=== PATIENT | female | born 1940 | race Two or more races ===

== ENCOUNTER 2016-11-13 | Inpatient (IN) | payer MEDICARE, OTHER ==
[~2016-11-13] VITALS: Ht 154.9 cm; Wt 53.5 kg
[~2016-11-13] MED LIST: ACET160S2 GT; ALBU1.257 IH; ALLA266C2 TP; ASCO500S2 GT; ASPI-1169 GT; CLON0.1T14 GT; CYAN250T6 GT; DULO60CA63 GT; ENOX40DI SQ; FERR220S2 GT; HYDR1SOL TP; IPRA0.2S9 IH; LEVO25TA7 GT; MAGN400O6 GT; MECL12.582 GT; METO5SOL2 GT; NS C250O2 GT; ONDA4TAB10 GT; PANT40SU2 GT; POLY17PO4 GT; SENN-167 GT; TRAM50TA2 GT; ZINC220C8 GT
[2016-11-15 07:45] VITALS: BP 133/78
--- NOTE | 2016-11-15 08:00 | NUR ---
Please see resident's previous account [id number] for all assessments and nurses notes. Originally admitted on 02/08/2016.
[2016-11-15] MEDS ORDERED: TUBERCULIN,PURIF.PROT.DERIV. 5 TU/0.1 ML DISP.SYRIN ID SCH (10:08)
[2016-11-15] MEDS ORDERED: HYDROGEN PEROXIDE 480 ML BOTTLE TP PRN (10:08)
[2016-11-15] MEDS ORDERED: ACETAMINOPHEN W/ CODEINE#3 1 EA TABLET GT PRN (10:08)
[2016-11-15] MEDS ORDERED: DULOXETINE HCL 30 MG CAPSULE.DR GT SCH (10:08)
[2016-11-15] MEDS ORDERED: ALBUTEROL HALF STRENGTH 1.25 MG/3 ML VIAL.NEB NEB PRN (10:08)
[2016-11-15] MEDS ORDERED: ALBUTEROL HALF STRENGTH 1.25 MG/3 ML VIAL.NEB NEB SCH (10:08)
[2016-11-15] MEDS ORDERED: IPRATROPIUM NEB FS 0.5 MG/2.5 ML AMPUL.NEB NEB SCH (10:08)
[2016-11-15] MEDS ORDERED: IPRATROPIUM NEB FS 0.5 MG/2.5 ML AMPUL.NEB NEB PRN (10:08)
--- NOTE | 2016-11-15 11:15 | NUR ---
Please see resident's previous account [id number] for Social Service assessments, evaluations and notes.
[2016-11-15] MEDS: IPRATROPIUM NEB FS 0.5 MG/2.5 ML AMPUL.NEB NEB SCH ×2 (13:39→19:58)
[2016-11-15] MEDS: ALBUTEROL HALF STRENGTH 1.25 MG/3 ML VIAL.NEB NEB SCH ×2 (13:39→19:58)
[2016-11-15] MEDS: NEXIUM 40 MG GT SCH (17:00)
[2016-11-15 19:48] VITALS: BP 123/68
[2016-11-15] MEDS: MECLIZINE HCL 12.5 MG TABLET GT SCH (21:58)
[2016-11-15] MEDS: ONDANSETRON 4 MG TAB.RAPDIS GT SCH (21:59)
[2016-11-15] MEDS: Z GUARD REMEDY 4 OZ OINT TP SCH ×2 (21:59)
[2016-11-15] MEDS: DULOXETINE HCL 30 MG CAPSULE.DR GT SCH (21:59)
[2016-11-15] MEDS: HYDROGEN PEROXIDE 480 ML BOTTLE TP SCH (21:59)
[2016-11-16] MEDS: ALBUTEROL HALF STRENGTH 1.25 MG/3 ML VIAL.NEB NEB SCH ×4 (01:35→19:42)
[2016-11-16] MEDS: IPRATROPIUM NEB FS 0.5 MG/2.5 ML AMPUL.NEB NEB SCH ×4 (01:35→19:42)
[2016-11-16] MEDS: LEVOTHYROXINE SODIUM 25 MCG TABLET GT SCH (06:37)
[2016-11-16 08:20] VITALS: BP 143/62
[2016-11-16] MEDS: ASPIRIN 81 MG TAB.CHEW GT SCH (08:40)
[2016-11-16] MEDS: MECLIZINE HCL 12.5 MG TABLET GT SCH ×2 (08:40→20:13)
[2016-11-16] MEDS: FERROUS SULFATE - FOR SA ONLY 330 MG/7.5 ML UDC GT SCH (08:41)
[2016-11-16] MEDS: POLYETHYLENE GLYCOL 3350 17 GM POWD.PACK GT SCH (08:41)
[2016-11-16] MEDS: SENNOSIDES 8.6 MG TABLET GT SCH (08:42)
[2016-11-16] MEDS: NEXIUM 40 MG GT SCH ×2 (08:42→17:58)
[2016-11-16] MEDS: ASCORBIC ACID 500 MG TABLET GT SCH (08:42)
[2016-11-16] MEDS: CYANOCOBALAMIN 500 MCG TABLET GT SCH (08:42)
[2016-11-16] MEDS: ZINC SULFATE 220 MG CAPSULE GT SCH (08:42)
[2016-11-16] MEDS: ONDANSETRON 4 MG TAB.RAPDIS GT SCH ×3 (08:43→20:14)
[2016-11-16] MEDS: HYDROGEN PEROXIDE 480 ML BOTTLE TP SCH ×2 (08:44→20:14)
[2016-11-16] MEDS: Z GUARD REMEDY 4 OZ OINT TP SCH ×4 (08:44→20:14)
[2016-11-16] MEDS: ENOXAPARIN SODIUM 40 MG/0.4 ML DISP.SYRIN SQ SCH (08:44)
[2016-11-16] MEDS: FIBERSOURCE HN 1,000 ML BOTTLE GT PRN (11:36)
[2016-11-16] MEDS: ACETAMINOPHEN 650 MG/20 ML UDC- FOR SA PATIENTS ONLY GT PRN (18:01)
[2016-11-16] MEDS: CLONIDINE HCL 0.1 MG TABLET GT PRN (18:08)
[2016-11-16 19:42] VITALS: BP 116/61
[2016-11-16] MEDS: DULOXETINE HCL 30 MG CAPSULE.DR GT SCH (21:19)
[2016-11-17 00:52] VITALS: BP 115/68
[2016-11-17] MEDS: ALBUTEROL HALF STRENGTH 1.25 MG/3 ML VIAL.NEB NEB SCH ×4 (02:14→19:54)
[2016-11-17] MEDS: IPRATROPIUM NEB FS 0.5 MG/2.5 ML AMPUL.NEB NEB SCH ×4 (02:14→19:54)
[2016-11-17] MEDS: LEVOTHYROXINE SODIUM 25 MCG TABLET GT SCH (05:24)
[2016-11-17 06:21] VITALS: BP 132/78
[2016-11-17 07:40] VITALS: BP 133/55
[2016-11-17] MEDS: NEXIUM 40 MG GT SCH ×2 (08:08→17:09)
[2016-11-17] MEDS: SENNOSIDES 8.6 MG TABLET GT SCH (08:08)
[2016-11-17] MEDS: ASPIRIN 81 MG TAB.CHEW GT SCH (08:08)
[2016-11-17] MEDS: ASCORBIC ACID 500 MG TABLET GT SCH (08:08)
[2016-11-17] MEDS: MECLIZINE HCL 12.5 MG TABLET GT SCH ×2 (08:08→21:10)
[2016-11-17] MEDS: POLYETHYLENE GLYCOL 3350 17 GM POWD.PACK GT SCH (08:08)
[2016-11-17] MEDS: FERROUS SULFATE - FOR SA ONLY 330 MG/7.5 ML UDC GT SCH (08:08)
[2016-11-17] MEDS: CYANOCOBALAMIN 500 MCG TABLET GT SCH (08:08)
[2016-11-17] MEDS: ONDANSETRON 4 MG TAB.RAPDIS GT SCH (08:09)
[2016-11-17] MEDS: ZINC SULFATE 220 MG CAPSULE GT SCH (08:09)
[2016-11-17] MEDS: ENOXAPARIN SODIUM 40 MG/0.4 ML DISP.SYRIN SQ SCH (08:09)
[2016-11-17] MEDS: HYDROGEN PEROXIDE 480 ML BOTTLE TP SCH ×2 (08:10→21:10)
[2016-11-17] MEDS: Z GUARD REMEDY 4 OZ OINT TP SCH ×4 (08:10→21:10)
[2016-11-17 12:28] VITALS: BP 113/67
[2016-11-17] MEDS: TRAMADOL HCL 50 MG TABLET GT PRN (17:09)
[2016-11-17 18:00] VITALS: BP 118/62
[2016-11-17 20:17] VITALS: BP 121/66
--- NOTE | 2016-11-17 20:43 | NUR ---
Pt seen by Deneen Hankins INFECTION CONTROL SPECIALIST,no new order.
[2016-11-17] MEDS: DULOXETINE HCL 30 MG CAPSULE.DR GT SCH (21:10)
[2016-11-17] MEDS: FIBERSOURCE HN 1,000 ML BOTTLE GT PRN (23:58)
[2016-11-18] VITALS: BP 121/69
[2016-11-18] MEDS: CLONIDINE HCL 0.1 MG TABLET GT PRN ×3 (00:36→16:14)
[2016-11-18] MEDS: IPRATROPIUM NEB FS 0.5 MG/2.5 ML AMPUL.NEB NEB SCH ×4 (01:50→19:33)
[2016-11-18] MEDS: ALBUTEROL HALF STRENGTH 1.25 MG/3 ML VIAL.NEB NEB SCH ×4 (01:50→19:33)
[2016-11-18 06:00] VITALS: BP 115/60
[2016-11-18] MEDS: LEVOTHYROXINE SODIUM 25 MCG TABLET GT SCH (06:34)
[2016-11-18 07:53] VITALS: BP_SYST 129; BP_SYST 96; BP_DIAS 69; BP_DIAS 73
--- NOTE | 2016-11-18 08:20 | NUR ---
Seen and examined by Dr. Charla Fontanez no new order given at this time.
[2016-11-18] MEDS: NEXIUM 40 MG GT SCH ×2 (09:51→16:14)
[2016-11-18] MEDS: ASCORBIC ACID 500 MG TABLET GT SCH (09:51)
[2016-11-18] MEDS: FERROUS SULFATE - FOR SA ONLY 330 MG/7.5 ML UDC GT SCH (09:51)
[2016-11-18] MEDS: POLYETHYLENE GLYCOL 3350 17 GM POWD.PACK GT SCH (09:51)
[2016-11-18] MEDS: SENNOSIDES 8.6 MG TABLET GT SCH (09:51)
[2016-11-18] MEDS: MECLIZINE HCL 12.5 MG TABLET GT SCH ×2 (09:51→21:41)
[2016-11-18] MEDS: CYANOCOBALAMIN 500 MCG TABLET GT SCH (09:51)
[2016-11-18] MEDS: ASPIRIN 81 MG TAB.CHEW GT SCH (09:51)
[2016-11-18] MEDS: ENOXAPARIN SODIUM 40 MG/0.4 ML DISP.SYRIN SQ SCH (09:52)
[2016-11-18] MEDS: ZINC SULFATE 220 MG CAPSULE GT SCH (09:52)
[2016-11-18] MEDS: HYDROGEN PEROXIDE 480 ML BOTTLE TP SCH ×2 (09:52→21:41)
[2016-11-18] MEDS: Z GUARD REMEDY 4 OZ OINT TP SCH ×4 (09:52→21:42)
[2016-11-18 12:00] VITALS: BP 110/67
[2016-11-18] MEDS: FIBERSOURCE HN 1,000 ML BOTTLE GT PRN (16:16)
[2016-11-18 18:14] VITALS: BP 110/65
[2016-11-18 19:46] VITALS: BP 117/64
[2016-11-18] MEDS: DULOXETINE HCL 30 MG CAPSULE.DR GT SCH (21:42)
[2016-11-19 00:31] VITALS: BP 115/71
[2016-11-19] MEDS: ALBUTEROL HALF STRENGTH 1.25 MG/3 ML VIAL.NEB NEB SCH ×4 (01:38→19:32)
[2016-11-19] MEDS: IPRATROPIUM NEB FS 0.5 MG/2.5 ML AMPUL.NEB NEB SCH ×4 (01:38→19:32)
[2016-11-19 06:01] VITALS: BP 108/55
[2016-11-19] MEDS: LEVOTHYROXINE SODIUM 25 MCG TABLET GT SCH (06:11)
[2016-11-19 07:35] VITALS: BP 104/63
[2016-11-19] MEDS: ASPIRIN 81 MG TAB.CHEW GT SCH (09:15)
[2016-11-19] MEDS: ASCORBIC ACID 500 MG TABLET GT SCH (09:15)
[2016-11-19] MEDS: MECLIZINE HCL 12.5 MG TABLET GT SCH ×2 (09:15→21:38)
[2016-11-19] MEDS: SENNOSIDES 8.6 MG TABLET GT SCH (09:15)
[2016-11-19] MEDS: POLYETHYLENE GLYCOL 3350 17 GM POWD.PACK GT SCH (09:15)
[2016-11-19] MEDS: CYANOCOBALAMIN 500 MCG TABLET GT SCH (09:15)
[2016-11-19] MEDS: NEXIUM 40 MG GT SCH ×2 (09:15→16:50)
[2016-11-19] MEDS: ZINC SULFATE 220 MG CAPSULE GT SCH (09:15)
[2016-11-19] MEDS: FERROUS SULFATE - FOR SA ONLY 330 MG/7.5 ML UDC GT SCH (09:15)
[2016-11-19] MEDS: FIBERSOURCE HN 1,000 ML BOTTLE GT PRN (09:16)
[2016-11-19] MEDS: Z GUARD REMEDY 4 OZ OINT TP SCH ×4 (09:16→21:38)
[2016-11-19] MEDS: ENOXAPARIN SODIUM 40 MG/0.4 ML DISP.SYRIN SQ SCH (09:16)
[2016-11-19] MEDS: HYDROGEN PEROXIDE 480 ML BOTTLE TP SCH ×2 (09:16→21:38)
[2016-11-19] MEDS: ACETAMINOPHEN 650 MG/20 ML UDC- FOR SA PATIENTS ONLY GT PRN (09:17)
[2016-11-19] MEDS: CLONIDINE HCL 0.1 MG TABLET GT PRN ×2 (12:07→16:50)
[2016-11-19 12:08] VITALS: BP 118/71
[2016-11-19] MEDS: ONDANSETRON 4 MG TAB.RAPDIS GT PRN (15:14)
[2016-11-19 20:01] VITALS: BP 139/73
[2016-11-19] MEDS: DULOXETINE HCL 30 MG CAPSULE.DR GT SCH (21:39)
[2016-11-20 00:20] VITALS: BP 110/66
[2016-11-20] MEDS: ALBUTEROL HALF STRENGTH 1.25 MG/3 ML VIAL.NEB NEB SCH ×4 (01:57→19:29)
[2016-11-20] MEDS: IPRATROPIUM NEB FS 0.5 MG/2.5 ML AMPUL.NEB NEB SCH ×4 (01:57→19:29)
[2016-11-20] MEDS: FIBERSOURCE HN 1,000 ML BOTTLE GT PRN (02:51)
[2016-11-20] MEDS: LEVOTHYROXINE SODIUM 25 MCG TABLET GT SCH (05:28)
[2016-11-20 07:18] VITALS: BP 115/65
[2016-11-20 07:29] VITALS: BP 136/98
--- NOTE | 2016-11-20 08:00 | NUR ---
RT PATIENT RECEIVED TRACHED ON MECHANICAL VENTILATOR WITH SETTINGS SET PER MD ELENI NINA. VENT ALARMS CHECKED + AUDIBLE. VENT PLUGGED INTO RED OUTLET. CUFF PRESSURE CHECKED RAILROAD WHEELS AND AXLES INSPECTOR. RESP TX'S GIVEN ORDERED ELENI NINA. TRACH SECURE AND IN PROPER POSITION. SX'D WITH MOD AMT PALE SEMITHICK SECRETIONS. MONTHLY SCHEDULED TRACH CHANGE DONE ELENI NINA. B/S DIM RHONCHI. PATIENT IN NO DISTRESS OR SOB AT THIS TIME. BACK UP TRACH AND AMBU BAG AT [facility]. CONTINUE CURRENT PLAN OF RESP CARE. Addendum: 11/20/16 at 0903 by RUDDY ISSA RT Amended: Links added.
[2016-11-20] MEDS: MECLIZINE HCL 12.5 MG TABLET GT SCH ×2 (08:26→20:54)
[2016-11-20] MEDS: POLYETHYLENE GLYCOL 3350 17 GM POWD.PACK GT SCH (08:26)
[2016-11-20] MEDS: FERROUS SULFATE - FOR SA ONLY 330 MG/7.5 ML UDC GT SCH (08:26)
[2016-11-20] MEDS: ZINC SULFATE 220 MG CAPSULE GT SCH (08:26)
[2016-11-20] MEDS: ASCORBIC ACID 500 MG TABLET GT SCH (08:26)
[2016-11-20] MEDS: ENOXAPARIN SODIUM 40 MG/0.4 ML DISP.SYRIN SQ SCH (08:26)
[2016-11-20] MEDS: NEXIUM 40 MG GT SCH ×2 (08:26→17:10)
[2016-11-20] MEDS: SENNOSIDES 8.6 MG TABLET GT SCH (08:26)
[2016-11-20] MEDS: ASPIRIN 81 MG TAB.CHEW GT SCH (08:26)
[2016-11-20] MEDS: CYANOCOBALAMIN 500 MCG TABLET GT SCH (08:26)
[2016-11-20] MEDS: HYDROGEN PEROXIDE 480 ML BOTTLE TP SCH ×2 (09:38→20:54)
[2016-11-20] MEDS: Z GUARD REMEDY 4 OZ OINT TP SCH ×4 (09:38→20:54)
[2016-11-20 14:25] VITALS: BP 123/70
[2016-11-20 18:30] VITALS: BP 118/65
[2016-11-20 20:00] VITALS: BP 127/67
[2016-11-20] MEDS: DULOXETINE HCL 30 MG CAPSULE.DR GT SCH (21:23)
[2016-11-21 00:37] VITALS: BP 121/62
[2016-11-21] MEDS: IPRATROPIUM NEB FS 0.5 MG/2.5 ML AMPUL.NEB NEB SCH ×4 (01:31→19:42)
[2016-11-21] MEDS: ALBUTEROL HALF STRENGTH 1.25 MG/3 ML VIAL.NEB NEB SCH ×4 (01:31→19:42)
[2016-11-21] MEDS: LEVOTHYROXINE SODIUM 25 MCG TABLET GT SCH (05:20)
[2016-11-21 06:29] VITALS: BP 115/68
--- NOTE | 2016-11-21 08:22 | NUR ---
RT PATIENT RECEIVED TRACHED ON MECHANICAL VENTILATOR WITH SETTINGS SET PER MD ELENI NINA. VENT ALARMS CHECKED + AUDIBLE. VENT PLUGGED INTO RED OUTLET. CUFF PRESSURE CHECKED DIRECTOR OF MECHANICAL ENGINEERING. RESP TX'S GIVEN ORDERED ELENI NINA. TRACH SECURE AND IN PROPER POSITION. SX'D WITH MOD AMT PALE SEMITHICK SECRETIONS. B/S DIM RHONCHI. PATIENT IN NO DISTRESS OR SOB AT THIS TIME. BACK UP TRACH AND AMBU BAG AT [facility]. CONTINUE CURRENT PLAN OF RESP CARE. Addendum: 11/21/16 at 0823 by RUDDY ISSA RT Amended: Links added.
[2016-11-21] MEDS: MECLIZINE HCL 12.5 MG TABLET GT SCH ×2 (09:00→21:15)
[2016-11-21] MEDS: POLYETHYLENE GLYCOL 3350 17 GM POWD.PACK GT SCH (09:00)
[2016-11-21] MEDS: FERROUS SULFATE - FOR SA ONLY 330 MG/7.5 ML UDC GT SCH (09:00)
[2016-11-21] MEDS: ZINC SULFATE 220 MG CAPSULE GT SCH (09:00)
[2016-11-21] MEDS: Z GUARD REMEDY 4 OZ OINT TP SCH ×4 (09:00→21:15)
[2016-11-21] MEDS: SENNOSIDES 8.6 MG TABLET GT SCH (09:00)
[2016-11-21] MEDS: CYANOCOBALAMIN 500 MCG TABLET GT SCH (09:00)
[2016-11-21] MEDS: HYDROGEN PEROXIDE 480 ML BOTTLE TP SCH ×2 (09:00→21:15)
[2016-11-21] MEDS: NEXIUM 40 MG GT SCH ×2 (09:00→17:00)
[2016-11-21] MEDS: ASCORBIC ACID 500 MG TABLET GT SCH (09:00)
[2016-11-21] MEDS: ENOXAPARIN SODIUM 40 MG/0.4 ML DISP.SYRIN SQ SCH (09:00)
[2016-11-21] MEDS: ASPIRIN 81 MG TAB.CHEW GT SCH (09:00)
[2016-11-21 16:31] VITALS: BP 122/65
[2016-11-21 18:20] VITALS: BP 122/65
[2016-11-21 20:18] VITALS: BP 140/59
[2016-11-21] MEDS: DULOXETINE HCL 30 MG CAPSULE.DR GT SCH (21:15)
[2016-11-22 00:31] VITALS: BP 132/66
[2016-11-22] MEDS: ALBUTEROL HALF STRENGTH 1.25 MG/3 ML VIAL.NEB NEB SCH ×4 (01:05→19:30)
[2016-11-22] MEDS: IPRATROPIUM NEB FS 0.5 MG/2.5 ML AMPUL.NEB NEB SCH ×4 (01:05→19:30)
[2016-11-22] MEDS: LEVOTHYROXINE SODIUM 25 MCG TABLET GT SCH (05:45)
[2016-11-22] MEDS: FIBERSOURCE HN 1,000 ML BOTTLE GT PRN (05:45)
[2016-11-22 06:45] VITALS: BP 128/62
[2016-11-22 07:42] VITALS: BP 114/72
[2016-11-22] MEDS: Z GUARD REMEDY 4 OZ OINT TP SCH ×4 (09:00→21:13)
[2016-11-22] MEDS: HYDROGEN PEROXIDE 480 ML BOTTLE TP SCH ×2 (09:00→21:13)
[2016-11-22] MEDS: SENNOSIDES 8.6 MG TABLET GT SCH (09:00)
[2016-11-22] MEDS: ZINC SULFATE 220 MG CAPSULE GT SCH (09:00)
[2016-11-22] MEDS: ASCORBIC ACID 500 MG TABLET GT SCH (09:00)
[2016-11-22] MEDS: ENOXAPARIN SODIUM 40 MG/0.4 ML DISP.SYRIN SQ SCH (09:00)
[2016-11-22] MEDS: FERROUS SULFATE - FOR SA ONLY 330 MG/7.5 ML UDC GT SCH (09:00)
[2016-11-22] MEDS: MECLIZINE HCL 12.5 MG TABLET GT SCH ×2 (09:00→21:13)
[2016-11-22] MEDS: NEXIUM 40 MG GT SCH ×2 (09:00→17:00)
[2016-11-22] MEDS: POLYETHYLENE GLYCOL 3350 17 GM POWD.PACK GT SCH (09:00)
[2016-11-22] MEDS: CYANOCOBALAMIN 500 MCG TABLET GT SCH (09:00)
[2016-11-22] MEDS: ASPIRIN 81 MG TAB.CHEW GT SCH (09:00)
[2016-11-22 17:15] VITALS: BP 114/72
[2016-11-22 18:36] VITALS: BP 137/70
[2016-11-22 20:37] VITALS: BP 113/66
[2016-11-22] MEDS: DULOXETINE HCL 30 MG CAPSULE.DR GT SCH (21:13)
[2016-11-23] MEDS: ALBUTEROL HALF STRENGTH 1.25 MG/3 ML VIAL.NEB NEB SCH ×4 (01:05→20:13)
[2016-11-23] MEDS: IPRATROPIUM NEB FS 0.5 MG/2.5 ML AMPUL.NEB NEB SCH ×4 (01:05→20:13)
[2016-11-23 01:10] VITALS: BP 129/71
[2016-11-23] MEDS: LEVOTHYROXINE SODIUM 25 MCG TABLET GT SCH (05:27)
[2016-11-23 06:13] VITALS: BP 125/67
[2016-11-23 07:34] VITALS: BP 121/84
--- NOTE | 2016-11-23 09:09 | NUR ---
Resident was seen by Skyla for a haircut.
[2016-11-23] MEDS: NEXIUM 40 MG GT SCH ×2 (09:26→17:00)
[2016-11-23] MEDS: ASPIRIN 81 MG TAB.CHEW GT SCH (09:26)
[2016-11-23] MEDS: POLYETHYLENE GLYCOL 3350 17 GM POWD.PACK GT SCH (09:26)
[2016-11-23] MEDS: FERROUS SULFATE - FOR SA ONLY 330 MG/7.5 ML UDC GT SCH (09:26)
[2016-11-23] MEDS: SENNOSIDES 8.6 MG TABLET GT SCH (09:26)
[2016-11-23] MEDS: MECLIZINE HCL 12.5 MG TABLET GT SCH ×2 (09:26→20:41)
[2016-11-23] MEDS: ENOXAPARIN SODIUM 40 MG/0.4 ML DISP.SYRIN SQ SCH (09:27)
[2016-11-23] MEDS: ZINC SULFATE 220 MG CAPSULE GT SCH (09:27)
[2016-11-23] MEDS: HYDROGEN PEROXIDE 480 ML BOTTLE TP SCH ×2 (09:27→20:41)
[2016-11-23] MEDS: ASCORBIC ACID 500 MG TABLET GT SCH (09:27)
[2016-11-23] MEDS: Z GUARD REMEDY 4 OZ OINT TP SCH ×4 (09:27→20:41)
[2016-11-23] MEDS: CYANOCOBALAMIN 500 MCG TABLET GT SCH (09:27)
[2016-11-23 13:38] VITALS: BP 125/70
[2016-11-23] MEDS: FIBERSOURCE HN 1,000 ML BOTTLE GT PRN (14:39)
[2016-11-23 18:49] VITALS: BP 127/77
[2016-11-23] MEDS: DULOXETINE HCL 30 MG CAPSULE.DR GT SCH (21:55)
[2016-11-23 22:00] VITALS: BP_SYST 119; BP_SYST 121; BP_DIAS 63; BP_DIAS 67
[2016-11-24] VITALS: BP 123/80
[2016-11-24] MEDS: ALBUTEROL HALF STRENGTH 1.25 MG/3 ML VIAL.NEB NEB SCH ×4 (01:16→19:53)
[2016-11-24] MEDS: IPRATROPIUM NEB FS 0.5 MG/2.5 ML AMPUL.NEB NEB SCH ×4 (01:16→19:53)
[2016-11-24] MEDS: LEVOTHYROXINE SODIUM 25 MCG TABLET GT SCH (05:30)
[2016-11-24 06:16] VITALS: BP 136/77
[2016-11-24 07:47] VITALS: BP 133/68
[2016-11-24] MEDS: HYDROGEN PEROXIDE 480 ML BOTTLE TP SCH ×2 (09:00→21:33)
[2016-11-24] MEDS: SENNOSIDES 8.6 MG TABLET GT SCH (09:00)
[2016-11-24] MEDS: ZINC SULFATE 220 MG CAPSULE GT SCH (09:00)
[2016-11-24] MEDS: POLYETHYLENE GLYCOL 3350 17 GM POWD.PACK GT SCH (09:00)
[2016-11-24] MEDS: ASPIRIN 81 MG TAB.CHEW GT SCH (09:00)
[2016-11-24] MEDS: NEXIUM 40 MG GT SCH ×2 (09:00→17:15)
[2016-11-24] MEDS: ENOXAPARIN SODIUM 40 MG/0.4 ML DISP.SYRIN SQ SCH (09:00)
[2016-11-24] MEDS: FERROUS SULFATE - FOR SA ONLY 330 MG/7.5 ML UDC GT SCH (09:00)
[2016-11-24] MEDS: MECLIZINE HCL 12.5 MG TABLET GT SCH ×2 (09:00→21:33)
[2016-11-24] MEDS: CYANOCOBALAMIN 500 MCG TABLET GT SCH (09:00)
[2016-11-24] MEDS: ASCORBIC ACID 500 MG TABLET GT SCH (09:00)
[2016-11-24] MEDS: Z GUARD REMEDY 4 OZ OINT TP SCH ×4 (09:00→21:34)
[2016-11-24 12:00] VITALS: BP 133/77
[2016-11-24] MEDS: TRAMADOL HCL 50 MG TABLET GT PRN (13:10)
[2016-11-24 19:04] VITALS: BP 128/72
[2016-11-24 20:00] VITALS: BP 113/75
[2016-11-24] MEDS: DULOXETINE HCL 30 MG CAPSULE.DR GT SCH (21:34)
[2016-11-25] MEDS: IPRATROPIUM NEB FS 0.5 MG/2.5 ML AMPUL.NEB NEB SCH ×4 (01:34→19:55)
[2016-11-25] MEDS: ALBUTEROL HALF STRENGTH 1.25 MG/3 ML VIAL.NEB NEB SCH ×4 (01:34→19:55)
[2016-11-25 01:57] VITALS: BP 126/68
[2016-11-25] MEDS: FIBERSOURCE HN 1,000 ML BOTTLE GT PRN ×2 (02:16→20:19)
[2016-11-25 06:19] VITALS: BP 115/66
[2016-11-25] MEDS: LEVOTHYROXINE SODIUM 25 MCG TABLET GT SCH (06:24)
--- NOTE | 2016-11-25 07:40 | NUR ---
RT PATIENT RECEIVED TRACHED ON MECHANICAL VENTILATOR WITH SETTINGS SET PER MD ELENI NINA. VENT ALARMS CHECKED + AUDIBLE. VENT PLUGGED INTO RED OUTLET. CUFF PRESSURE CHECKED TITLE I ASSISTANT. RESP TX'S GIVEN ORDERED ELENI NINA. TRACH SECURE AND IN PROPER POSITION. SX'D WITH MOD AMT PALE SEMITHICK SECRETIONS. B/S DIM RHONCHI. PATIENT IN NO DISTRESS OR SOB AT THIS TIME. BACK UP TRACH AND AMBU BAG AT [facility]. CONTINUE CURRENT PLAN OF RESP CARE. Addendum: 11/25/16 at 1041 by RUDDY ISSA RT Amended: Links added.
[2016-11-25 07:47] VITALS: BP 127/74
[2016-11-25] MEDS: CYANOCOBALAMIN 500 MCG TABLET GT SCH (09:09)
[2016-11-25] MEDS: ASPIRIN 81 MG TAB.CHEW GT SCH (09:09)
[2016-11-25] MEDS: POLYETHYLENE GLYCOL 3350 17 GM POWD.PACK GT SCH (09:09)
[2016-11-25] MEDS: ZINC SULFATE 220 MG CAPSULE GT SCH (09:09)
[2016-11-25] MEDS: ENOXAPARIN SODIUM 40 MG/0.4 ML DISP.SYRIN SQ SCH (09:09)
[2016-11-25] MEDS: MECLIZINE HCL 12.5 MG TABLET GT SCH ×2 (09:09→21:45)
[2016-11-25] MEDS: HYDROGEN PEROXIDE 480 ML BOTTLE TP SCH ×2 (09:09→21:45)
[2016-11-25] MEDS: FERROUS SULFATE - FOR SA ONLY 330 MG/7.5 ML UDC GT SCH (09:09)
[2016-11-25] MEDS: SENNOSIDES 8.6 MG TABLET GT SCH (09:09)
[2016-11-25] MEDS: NEXIUM 40 MG GT SCH ×2 (09:09→16:18)
[2016-11-25] MEDS: ASCORBIC ACID 500 MG TABLET GT SCH (09:09)
[2016-11-25] MEDS: Z GUARD REMEDY 4 OZ OINT TP SCH ×4 (09:10→21:45)
[2016-11-25 12:00] VITALS: BP 119/61
[2016-11-25 18:29] VITALS: BP 117/68
[2016-11-25 19:54] VITALS: BP 118/58
[2016-11-25] MEDS: DULOXETINE HCL 30 MG CAPSULE.DR GT SCH (21:45)
[2016-11-26 00:52] VITALS: BP 115/72
[2016-11-26] MEDS: ALBUTEROL HALF STRENGTH 1.25 MG/3 ML VIAL.NEB NEB SCH ×4 (02:21→19:20)
[2016-11-26] MEDS: IPRATROPIUM NEB FS 0.5 MG/2.5 ML AMPUL.NEB NEB SCH ×4 (02:21→19:20)
[2016-11-26] MEDS: LEVOTHYROXINE SODIUM 25 MCG TABLET GT SCH (06:14)
[2016-11-26 06:15] VITALS: BP 116/65
[2016-11-26 07:43] VITALS: BP 119/70
[2016-11-26] MEDS: ASPIRIN 81 MG TAB.CHEW GT SCH (09:29)
[2016-11-26] MEDS: POLYETHYLENE GLYCOL 3350 17 GM POWD.PACK GT SCH (09:29)
[2016-11-26] MEDS: NEXIUM 40 MG GT SCH ×2 (09:29→17:00)
[2016-11-26] MEDS: MECLIZINE HCL 12.5 MG TABLET GT SCH ×2 (09:29→21:14)
[2016-11-26] MEDS: SENNOSIDES 8.6 MG TABLET GT SCH (09:29)
[2016-11-26] MEDS: ASCORBIC ACID 500 MG TABLET GT SCH (09:29)
[2016-11-26] MEDS: ZINC SULFATE 220 MG CAPSULE GT SCH (09:29)
[2016-11-26] MEDS: CYANOCOBALAMIN 500 MCG TABLET GT SCH (09:29)
[2016-11-26] MEDS: FERROUS SULFATE - FOR SA ONLY 330 MG/7.5 ML UDC GT SCH (09:29)
[2016-11-26] MEDS: HYDROGEN PEROXIDE 480 ML BOTTLE TP SCH ×2 (09:30→21:14)
[2016-11-26] MEDS: ENOXAPARIN SODIUM 40 MG/0.4 ML DISP.SYRIN SQ SCH (09:30)
[2016-11-26] MEDS: Z GUARD REMEDY 4 OZ OINT TP SCH ×4 (09:30→21:14)
[2016-11-26] MEDS: TRAMADOL HCL 50 MG TABLET GT PRN (09:47)
[2016-11-26 13:52] VITALS: BP 104/63
[2016-11-26] MEDS: ONDANSETRON 4 MG TAB.RAPDIS GT PRN (17:24)
[2016-11-26 18:34] VITALS: BP 110/64
[2016-11-26 19:42] VITALS: BP 130/61
[2016-11-26] MEDS: DULOXETINE HCL 30 MG CAPSULE.DR GT SCH (21:14)
[2016-11-27 01:11] VITALS: BP 128/66
[2016-11-27] MEDS: IPRATROPIUM NEB FS 0.5 MG/2.5 ML AMPUL.NEB NEB SCH ×4 (01:20→19:10)
[2016-11-27] MEDS: ALBUTEROL HALF STRENGTH 1.25 MG/3 ML VIAL.NEB NEB SCH ×4 (01:20→19:10)
[2016-11-27] MEDS: LEVOTHYROXINE SODIUM 25 MCG TABLET GT SCH (05:22)
[2016-11-27] MEDS: FIBERSOURCE HN 1,000 ML BOTTLE GT PRN (05:22)
[2016-11-27 06:15] VITALS: BP 122/72
[2016-11-27 08:24] VITALS: BP 116/89
[2016-11-27] MEDS: FERROUS SULFATE - FOR SA ONLY 330 MG/7.5 ML UDC GT SCH (09:00)
[2016-11-27] MEDS: MECLIZINE HCL 12.5 MG TABLET GT SCH ×2 (09:00→21:01)
[2016-11-27] MEDS: Z GUARD REMEDY 4 OZ OINT TP SCH ×4 (09:00→21:01)
[2016-11-27] MEDS: ENOXAPARIN SODIUM 40 MG/0.4 ML DISP.SYRIN SQ SCH (09:00)
[2016-11-27] MEDS: NEXIUM 40 MG GT SCH ×2 (09:00→17:43)
[2016-11-27] MEDS: ZINC SULFATE 220 MG CAPSULE GT SCH (09:00)
[2016-11-27] MEDS: ASCORBIC ACID 500 MG TABLET GT SCH (09:00)
[2016-11-27] MEDS: SENNOSIDES 8.6 MG TABLET GT SCH (09:00)
[2016-11-27] MEDS: ASPIRIN 81 MG TAB.CHEW GT SCH (09:00)
[2016-11-27] MEDS: POLYETHYLENE GLYCOL 3350 17 GM POWD.PACK GT SCH (09:00)
[2016-11-27] MEDS: CYANOCOBALAMIN 500 MCG TABLET GT SCH (09:00)
[2016-11-27] MEDS: HYDROGEN PEROXIDE 480 ML BOTTLE TP SCH ×2 (09:00→21:01)
[2016-11-27 18:15] VITALS: BP 116/64
[2016-11-27 19:55] VITALS: BP 119/65
[2016-11-27] MEDS: DULOXETINE HCL 30 MG CAPSULE.DR GT SCH (21:01)
[2016-11-28] MEDS: IPRATROPIUM NEB FS 0.5 MG/2.5 ML AMPUL.NEB NEB SCH ×4 (00:42→19:44)
[2016-11-28] MEDS: ALBUTEROL HALF STRENGTH 1.25 MG/3 ML VIAL.NEB NEB SCH ×4 (00:42→19:44)
[2016-11-28 00:54] VITALS: BP 118/70
[2016-11-28] MEDS: LEVOTHYROXINE SODIUM 25 MCG TABLET GT SCH (05:36)
[2016-11-28] MEDS: FIBERSOURCE HN 1,000 ML BOTTLE GT PRN ×2 (05:56→23:16)
[2016-11-28 06:05] VITALS: BP 122/76
[2016-11-28 07:45] VITALS: BP 125/68
[2016-11-28] MEDS: Z GUARD REMEDY 4 OZ OINT TP SCH ×4 (09:00→21:11)
[2016-11-28] MEDS: HYDROGEN PEROXIDE 480 ML BOTTLE TP SCH ×2 (09:00→21:11)
[2016-11-28] MEDS: SENNOSIDES 8.6 MG TABLET GT SCH (09:45)
[2016-11-28] MEDS: POLYETHYLENE GLYCOL 3350 17 GM POWD.PACK GT SCH (09:45)
[2016-11-28] MEDS: ASPIRIN 81 MG TAB.CHEW GT SCH (09:45)
[2016-11-28] MEDS: MECLIZINE HCL 12.5 MG TABLET GT SCH ×2 (09:45→21:11)
[2016-11-28] MEDS: FERROUS SULFATE - FOR SA ONLY 330 MG/7.5 ML UDC GT SCH (09:45)
[2016-11-28] MEDS: NEXIUM 40 MG GT SCH ×2 (09:45→17:00)
[2016-11-28] MEDS: ZINC SULFATE 220 MG CAPSULE GT SCH (09:45)
[2016-11-28] MEDS: ASCORBIC ACID 500 MG TABLET GT SCH (09:45)
[2016-11-28] MEDS: ENOXAPARIN SODIUM 40 MG/0.4 ML DISP.SYRIN SQ SCH (09:46)
[2016-11-28] MEDS: CYANOCOBALAMIN 500 MCG TABLET GT SCH (09:47)
[2016-11-28 18:17] VITALS: BP 105/65
[2016-11-28 20:00] VITALS: BP 127/81
[2016-11-28] MEDS: DULOXETINE HCL 30 MG CAPSULE.DR GT SCH (21:11)
[2016-11-29 00:12] VITALS: BP 126/72
[2016-11-29] MEDS: IPRATROPIUM NEB FS 0.5 MG/2.5 ML AMPUL.NEB NEB SCH ×4 (01:33→19:30)
[2016-11-29] MEDS: ALBUTEROL HALF STRENGTH 1.25 MG/3 ML VIAL.NEB NEB SCH ×4 (01:34→19:30)
[2016-11-29] MEDS: LEVOTHYROXINE SODIUM 25 MCG TABLET GT SCH (05:30)
[2016-11-29 06:06] VITALS: BP 122/64
[2016-11-29 08:02] VITALS: BP 115/64
[2016-11-29] MEDS: SENNOSIDES 8.6 MG TABLET GT SCH (08:59)
[2016-11-29] MEDS: CYANOCOBALAMIN 500 MCG TABLET GT SCH (08:59)
[2016-11-29] MEDS: ASCORBIC ACID 500 MG TABLET GT SCH (08:59)
[2016-11-29] MEDS: MECLIZINE HCL 12.5 MG TABLET GT SCH ×2 (08:59→21:27)
[2016-11-29] MEDS: FERROUS SULFATE - FOR SA ONLY 330 MG/7.5 ML UDC GT SCH (08:59)
[2016-11-29] MEDS: POLYETHYLENE GLYCOL 3350 17 GM POWD.PACK GT SCH (08:59)
[2016-11-29] MEDS: ZINC SULFATE 220 MG CAPSULE GT SCH (08:59)
[2016-11-29] MEDS: ASPIRIN 81 MG TAB.CHEW GT SCH (08:59)
[2016-11-29] MEDS: NEXIUM 40 MG GT SCH ×2 (08:59→16:52)
[2016-11-29] MEDS: HYDROGEN PEROXIDE 480 ML BOTTLE TP SCH ×2 (09:00→21:27)
[2016-11-29] MEDS: ENOXAPARIN SODIUM 40 MG/0.4 ML DISP.SYRIN SQ SCH (09:00)
[2016-11-29] MEDS: Z GUARD REMEDY 4 OZ OINT TP SCH ×4 (09:00→21:27)
[2016-11-29] MEDS: FIBERSOURCE HN 1,000 ML BOTTLE GT PRN (15:07)
[2016-11-29 16:49] VITALS: BP 115/64
[2016-11-29 18:22] VITALS: BP 124/58
[2016-11-29 19:43] VITALS: BP 100/63
[2016-11-29] MEDS: DULOXETINE HCL 30 MG CAPSULE.DR GT SCH (21:27)
[2016-11-30] MEDS: IPRATROPIUM NEB FS 0.5 MG/2.5 ML AMPUL.NEB NEB SCH ×4 (00:43→19:30)
[2016-11-30] MEDS: ALBUTEROL HALF STRENGTH 1.25 MG/3 ML VIAL.NEB NEB SCH ×4 (00:44→19:30)
[2016-11-30 02:50] VITALS: BP 119/66
[2016-11-30] MEDS: LEVOTHYROXINE SODIUM 25 MCG TABLET GT SCH (05:33)
[2016-11-30 06:08] VITALS: BP 126/60
[2016-11-30 07:44] VITALS: BP 155/77
[2016-11-30 08:31] VITALS: BP 139/57
[2016-11-30] MEDS: POLYETHYLENE GLYCOL 3350 17 GM POWD.PACK GT SCH (09:19)
[2016-11-30] MEDS: HYDROGEN PEROXIDE 480 ML BOTTLE TP SCH ×2 (09:19→21:20)
[2016-11-30] MEDS: ENOXAPARIN SODIUM 40 MG/0.4 ML DISP.SYRIN SQ SCH (09:19)
[2016-11-30] MEDS: FERROUS SULFATE - FOR SA ONLY 330 MG/7.5 ML UDC GT SCH (09:19)
[2016-11-30] MEDS: NEXIUM 40 MG GT SCH ×2 (09:19→17:32)
[2016-11-30] MEDS: CYANOCOBALAMIN 500 MCG TABLET GT SCH (09:19)
[2016-11-30] MEDS: Z GUARD REMEDY 4 OZ OINT TP SCH ×3 (09:19→21:20)
[2016-11-30] MEDS: MECLIZINE HCL 12.5 MG TABLET GT SCH ×2 (09:19→21:20)
[2016-11-30] MEDS: SENNOSIDES 8.6 MG TABLET GT SCH (09:19)
[2016-11-30] MEDS: ASPIRIN 81 MG TAB.CHEW GT SCH (09:19)
[2016-11-30] MEDS: ZINC SULFATE 220 MG CAPSULE GT SCH (09:19)
[2016-11-30] MEDS: ASCORBIC ACID 500 MG TABLET GT SCH (09:19)
[2016-11-30 14:54] VITALS: BP 126/63
[2016-11-30] MEDS: FIBERSOURCE HN 1,000 ML BOTTLE GT PRN (17:33)
[2016-11-30 18:13] VITALS: BP 129/65
[2016-11-30] MEDS: DULOXETINE HCL 30 MG CAPSULE.DR GT SCH (21:20)
[2016-11-30] MEDS: CLONIDINE HCL 0.1 MG TABLET GT PRN (23:33)
[2016-12-01 00:26] VITALS: BP_SYST 120; BP_SYST 130; BP_DIAS 68; BP_DIAS 71
[2016-12-01] MEDS: ALBUTEROL HALF STRENGTH 1.25 MG/3 ML VIAL.NEB NEB SCH ×4 (01:54→19:47)
[2016-12-01] MEDS: IPRATROPIUM NEB FS 0.5 MG/2.5 ML AMPUL.NEB NEB SCH ×4 (01:54→19:47)
[2016-12-01] MEDS: LEVOTHYROXINE SODIUM 25 MCG TABLET GT SCH (05:14)
[2016-12-01] MEDS: CLONIDINE HCL 0.1 MG TABLET GT PRN ×2 (05:22→23:26)
[2016-12-01 06:10] VITALS: BP 106/50
[2016-12-01 07:44] VITALS: BP 112/51
[2016-12-01] MEDS: MECLIZINE HCL 12.5 MG TABLET GT SCH ×2 (09:19→21:11)
[2016-12-01] MEDS: ASPIRIN 81 MG TAB.CHEW GT SCH (09:19)
[2016-12-01] MEDS: FERROUS SULFATE - FOR SA ONLY 330 MG/7.5 ML UDC GT SCH (09:20)
[2016-12-01] MEDS: NEXIUM 40 MG GT SCH ×2 (09:20→16:44)
[2016-12-01] MEDS: POLYETHYLENE GLYCOL 3350 17 GM POWD.PACK GT SCH (09:20)
[2016-12-01] MEDS: ENOXAPARIN SODIUM 40 MG/0.4 ML DISP.SYRIN SQ SCH (09:20)
[2016-12-01] MEDS: ASCORBIC ACID 500 MG TABLET GT SCH (09:20)
[2016-12-01] MEDS: CYANOCOBALAMIN 500 MCG TABLET GT SCH (09:20)
[2016-12-01] MEDS: ZINC SULFATE 220 MG CAPSULE GT SCH (09:20)
[2016-12-01] MEDS: SENNOSIDES 8.6 MG TABLET GT SCH (09:20)
[2016-12-01] MEDS: Z GUARD REMEDY 4 OZ OINT TP SCH ×2 (09:21→21:12)
[2016-12-01] MEDS: HYDROGEN PEROXIDE 480 ML BOTTLE TP SCH ×2 (09:21→21:11)
[2016-12-01] MEDS: FIBERSOURCE HN 1,000 ML BOTTLE GT PRN (12:03)
[2016-12-01 13:38] VITALS: BP 110/62
--- NOTE | 2016-12-01 14:30 | NUR ---
Seen and examined by Deneen Hankins NP, no new order given at this time.
[2016-12-01 18:36] VITALS: BP 108/59
[2016-12-01 20:22] VITALS: BP 125/65
[2016-12-01] MEDS: DULOXETINE HCL 30 MG CAPSULE.DR GT SCH (21:12)
[2016-12-02 00:44] VITALS: BP 120/69
[2016-12-02] MEDS: ALBUTEROL HALF STRENGTH 1.25 MG/3 ML VIAL.NEB NEB SCH ×4 (01:16→19:58)
[2016-12-02] MEDS: IPRATROPIUM NEB FS 0.5 MG/2.5 ML AMPUL.NEB NEB SCH ×4 (01:16→19:58)
[2016-12-02] MEDS: MAGNESIUM HYDROXIDE 30 ML UDC GT PRN (05:19)
[2016-12-02] MEDS: FIBERSOURCE HN 1,000 ML BOTTLE GT PRN ×2 (05:19→22:06)
[2016-12-02] MEDS: LEVOTHYROXINE SODIUM 25 MCG TABLET GT SCH (05:19)
[2016-12-02] MEDS: CLONIDINE HCL 0.1 MG TABLET GT PRN ×2 (05:22→23:37)
[2016-12-02 06:15] VITALS: BP 135/76
[2016-12-02 07:40] VITALS: BP 106/60
[2016-12-02] MEDS: MECLIZINE HCL 12.5 MG TABLET GT SCH ×2 (09:00→20:31)
[2016-12-02] MEDS: FERROUS SULFATE - FOR SA ONLY 330 MG/7.5 ML UDC GT SCH (09:00)
[2016-12-02] MEDS: SENNOSIDES 8.6 MG TABLET GT SCH (09:00)
[2016-12-02] MEDS: NEXIUM 40 MG GT SCH (09:00)
[2016-12-02] MEDS: ZINC SULFATE 220 MG CAPSULE GT SCH (09:00)
[2016-12-02] MEDS: HYDROGEN PEROXIDE 480 ML BOTTLE TP SCH ×2 (09:00→20:31)
[2016-12-02] MEDS: Z GUARD REMEDY 4 OZ OINT TP SCH ×2 (09:00→20:31)
[2016-12-02] MEDS: ASCORBIC ACID 500 MG TABLET GT SCH (09:00)
[2016-12-02] MEDS: POLYETHYLENE GLYCOL 3350 17 GM POWD.PACK GT SCH (09:00)
[2016-12-02] MEDS: ENOXAPARIN SODIUM 40 MG/0.4 ML DISP.SYRIN SQ SCH (09:00)
[2016-12-02] MEDS: CYANOCOBALAMIN 500 MCG TABLET GT SCH (09:00)
[2016-12-02] MEDS: ASPIRIN 81 MG TAB.CHEW GT SCH (09:00)
[2016-12-02 12:00] VITALS: BP 108/63
--- NOTE | 2016-12-02 14:37 | NUR ---
IDT meeting held, reviewed current, new and treatment orders/medications. Daughter Cheli attended the meeting via conference call she brought up that she would like patient to start weaning again and neurology consult if possible to evaluate why she cannot be weaned off, she also wants to know if her episodes of vomiting is related to her [place] syndrome. Spoke with Dr. Cardenas, made aware of the reason for consult, verbalized that she will see patient next week. Dr. John ordered CXR, ABG for Monday. Orders noted and carried out. Daughter aware.
[2016-12-02] MEDS: ESOMEPRAZOLE MAGNESIUM 40 MG GT SCH (16:33)
[2016-12-02 18:42] VITALS: BP 101/61
[2016-12-02 21:05] VITALS: BP 116/62
[2016-12-02] MEDS: DULOXETINE HCL 30 MG CAPSULE.DR GT SCH (21:23)
[2016-12-03 00:15] VITALS: BP 131/72
[2016-12-03] MEDS: ALBUTEROL HALF STRENGTH 1.25 MG/3 ML VIAL.NEB NEB SCH ×4 (01:13→20:06)
[2016-12-03] MEDS: IPRATROPIUM NEB FS 0.5 MG/2.5 ML AMPUL.NEB NEB SCH ×4 (01:13→20:06)
[2016-12-03] MEDS: LEVOTHYROXINE SODIUM 25 MCG TABLET GT SCH (05:11)
[2016-12-03] MEDS: CLONIDINE HCL 0.1 MG TABLET GT PRN ×2 (05:11→23:21)
[2016-12-03 06:10] VITALS: BP 106/57
[2016-12-03 08:00] VITALS: BP 105/56
[2016-12-03] MEDS: ESOMEPRAZOLE MAGNESIUM 40 MG GT SCH ×2 (09:58→17:03)
[2016-12-03] MEDS: SENNOSIDES 8.6 MG TABLET GT SCH (09:58)
[2016-12-03] MEDS: ZINC SULFATE 220 MG CAPSULE GT SCH (09:58)
[2016-12-03] MEDS: ASCORBIC ACID 500 MG TABLET GT SCH (09:58)
[2016-12-03] MEDS: MECLIZINE HCL 12.5 MG TABLET GT SCH ×2 (09:58→20:29)
[2016-12-03] MEDS: POLYETHYLENE GLYCOL 3350 17 GM POWD.PACK GT SCH (09:58)
[2016-12-03] MEDS: CYANOCOBALAMIN 500 MCG TABLET GT SCH (09:58)
[2016-12-03] MEDS: FERROUS SULFATE - FOR SA ONLY 330 MG/7.5 ML UDC GT SCH (09:58)
[2016-12-03] MEDS: ASPIRIN 81 MG TAB.CHEW GT SCH (09:58)
[2016-12-03] MEDS: HYDROGEN PEROXIDE 480 ML BOTTLE TP SCH ×2 (09:59→20:29)
[2016-12-03] MEDS: ENOXAPARIN SODIUM 40 MG/0.4 ML DISP.SYRIN SQ SCH (09:59)
[2016-12-03] MEDS: Z GUARD REMEDY 4 OZ OINT TP SCH ×2 (09:59→20:29)
[2016-12-03] MEDS: ONDANSETRON 4 MG TAB.RAPDIS GT PRN ×2 (12:32→19:03)
[2016-12-03 12:33] VITALS: BP 112/68
[2016-12-03] MEDS: TRAMADOL HCL 50 MG TABLET GT PRN (19:03)
[2016-12-03 19:19] VITALS: BP 149/65
[2016-12-03 20:06] VITALS: BP 126/70
[2016-12-03] MEDS: DULOXETINE HCL 30 MG CAPSULE.DR GT SCH (21:12)
[2016-12-04 00:19] VITALS: BP 106/71
[2016-12-04] MEDS: ALBUTEROL HALF STRENGTH 1.25 MG/3 ML VIAL.NEB NEB SCH ×4 (02:25→20:07)
[2016-12-04] MEDS: IPRATROPIUM NEB FS 0.5 MG/2.5 ML AMPUL.NEB NEB SCH ×4 (02:25→20:07)
[2016-12-04] MEDS: CLONIDINE HCL 0.1 MG TABLET GT PRN (05:19)
[2016-12-04] MEDS: LEVOTHYROXINE SODIUM 25 MCG TABLET GT SCH (05:19)
[2016-12-04] MEDS: FIBERSOURCE HN 1,000 ML BOTTLE GT PRN (05:19)
[2016-12-04 06:14] VITALS: BP 119/72
[2016-12-04 07:41] VITALS: BP 119/72
[2016-12-04] MEDS: MECLIZINE HCL 12.5 MG TABLET GT SCH ×2 (09:00→21:08)
[2016-12-04] MEDS: ASCORBIC ACID 500 MG TABLET GT SCH (09:00)
[2016-12-04] MEDS: Z GUARD REMEDY 4 OZ OINT TP SCH ×2 (09:00→21:09)
[2016-12-04] MEDS: ZINC SULFATE 220 MG CAPSULE GT SCH (09:00)
[2016-12-04] MEDS: ENOXAPARIN SODIUM 40 MG/0.4 ML DISP.SYRIN SQ SCH (09:00)
[2016-12-04] MEDS: ESOMEPRAZOLE MAGNESIUM 40 MG GT SCH ×2 (09:00→17:00)
[2016-12-04] MEDS: FERROUS SULFATE - FOR SA ONLY 330 MG/7.5 ML UDC GT SCH (09:00)
[2016-12-04] MEDS: POLYETHYLENE GLYCOL 3350 17 GM POWD.PACK GT SCH (09:00)
[2016-12-04] MEDS: CYANOCOBALAMIN 500 MCG TABLET GT SCH (09:00)
[2016-12-04] MEDS: HYDROGEN PEROXIDE 480 ML BOTTLE TP SCH ×2 (09:00→21:09)
[2016-12-04] MEDS: ASPIRIN 81 MG TAB.CHEW GT SCH (09:00)
[2016-12-04] MEDS: SENNOSIDES 8.6 MG TABLET GT SCH (09:00)
[2016-12-04 18:31] VITALS: BP 124/74
[2016-12-04 20:29] VITALS: BP 135/72
[2016-12-04] MEDS: DULOXETINE HCL 30 MG CAPSULE.DR GT SCH (21:09)
[2016-12-05 00:17] VITALS: BP 120/69
[2016-12-05] MEDS: ALBUTEROL HALF STRENGTH 1.25 MG/3 ML VIAL.NEB NEB SCH ×4 (01:49→20:20)
[2016-12-05] MEDS: IPRATROPIUM NEB FS 0.5 MG/2.5 ML AMPUL.NEB NEB SCH ×4 (01:49→20:20)
[2016-12-05] MEDS: LEVOTHYROXINE SODIUM 25 MCG TABLET GT SCH (05:36)
[2016-12-05 06:08] VITALS: BP 116/58
[2016-12-05 07:31] VITALS: BP 136/76
[2016-12-05] MEDS: MECLIZINE HCL 12.5 MG TABLET GT SCH ×2 (08:56→20:39)
[2016-12-05] MEDS: ASPIRIN 81 MG TAB.CHEW GT SCH (08:56)
[2016-12-05] MEDS: FERROUS SULFATE - FOR SA ONLY 330 MG/7.5 ML UDC GT SCH (08:56)
[2016-12-05] MEDS: POLYETHYLENE GLYCOL 3350 17 GM POWD.PACK GT SCH (08:57)
[2016-12-05] MEDS: ESOMEPRAZOLE MAGNESIUM 40 MG GT SCH ×2 (08:57→16:59)
[2016-12-05] MEDS: HYDROGEN PEROXIDE 480 ML BOTTLE TP SCH ×2 (08:58→20:39)
[2016-12-05] MEDS: Z GUARD REMEDY 4 OZ OINT TP SCH ×2 (08:58→20:39)
[2016-12-05] MEDS: ASCORBIC ACID 500 MG TABLET GT SCH (08:58)
[2016-12-05] MEDS: SENNOSIDES 8.6 MG TABLET GT SCH (08:58)
[2016-12-05] MEDS: ZINC SULFATE 220 MG CAPSULE GT SCH (08:58)
[2016-12-05] MEDS: CYANOCOBALAMIN 500 MCG TABLET GT SCH (09:00)
[2016-12-05] MEDS: ENOXAPARIN SODIUM 40 MG/0.4 ML DISP.SYRIN SQ SCH (09:01)
[2016-12-05 09:04] LABS: ABG BASE EXCESS 3.4 mmol/L; ABG OXYGEN SATURATION 98.7 % (92.0-98.5); ABG PCO2 44.1 mmHg (35.0-45.0); ABG PH 7.425 (7.350-7.450); ABG PO2 233.4 mmHg (75.0-100.0); AaDO2 1.1 mmHg; COHb 0.3 % (0.5-1.5); MetHb 0.8 % (0.0-1.5); O2Hb 97.6 % (94.0-97.0); SITE, ABG Left Radial; VENT MODE, BG AC 14 450 40% +5
[2016-12-05 12:00] VITALS: BP 136/76
[2016-12-05] MEDS: ONDANSETRON 4 MG TAB.RAPDIS GT PRN (14:24)
--- NOTE | 2016-12-05 15:56 | NUR ---
Seen by Dr. John. Chest X-ray was done. ABG done dr. Carvajal of ABG. Still waiting for chest X-ray result.
[2016-12-05 18:00] VITALS: BP 101/53
[2016-12-05 19:55] VITALS: BP 118/58
[2016-12-05] MEDS: DULOXETINE HCL 30 MG CAPSULE.DR GT SCH (21:34)
[2016-12-06 00:41] VITALS: BP 122/60
[2016-12-06] MEDS: ALBUTEROL HALF STRENGTH 1.25 MG/3 ML VIAL.NEB NEB SCH ×4 (02:26→19:55)
[2016-12-06] MEDS: IPRATROPIUM NEB FS 0.5 MG/2.5 ML AMPUL.NEB NEB SCH ×4 (02:26→19:55)
[2016-12-06] MEDS: LEVOTHYROXINE SODIUM 25 MCG TABLET GT SCH (05:08)
[2016-12-06 06:23] VITALS: BP 130/62
[2016-12-06 07:41] LABS: BASOPHILS % (AUTO) 0.3 % (0.0-2.0); EOSINOPHILS # (AUTO) 0.3 /CMM (0.0-0.7); EOSINOPHILS % (AUTO) 2.6 % (0.0-6.0); HEMATOCRIT 33 % (33-45); LYMPHOCYTES # (AUTO) 1.5 /CMM (0.8-4.8); LYMPHOCYTES % (AUTO) 14.1 % (20.0-44.0); MEAN CORPUSCULAR HEMOGLOBIN 31 PG (26.0-33.0); MEAN CORPUSCULAR HGB CONC 33 g/dl (31.0-36.0); MEAN CORPUSCULAR VOLUME 93 fL (82-100); MONOCYTES % (AUTO) 9.1 % (2.0-12.0); NEUTROPHILS # (AUTO) 7.9 /CMM (1.8-8.9); NEUTROPHILS % (AUTO) 73.9 % (43.0-81.0); PLATELET COUNT (AUTO) 280 /CMM (150-450); RDW COEFFICIENT OF VARIATION 14.7 (11.5-15.0); RED BLOOD CELL COUNT(AUTO) 3.59 MIL/uL (4.0-5.2); WHITE BLOOD COUNT (AUTO) 10.6 K/uL (4.3-11.0)
[2016-12-06 08:04] VITALS: BP 111/59
[2016-12-06] MEDS: MECLIZINE HCL 12.5 MG TABLET GT SCH ×2 (09:47→20:27)
[2016-12-06] MEDS: POLYETHYLENE GLYCOL 3350 17 GM POWD.PACK GT SCH (09:47)
[2016-12-06] MEDS: ASPIRIN 81 MG TAB.CHEW GT SCH (09:47)
[2016-12-06] MEDS: ESOMEPRAZOLE MAGNESIUM 40 MG GT SCH ×2 (09:47→17:00)
[2016-12-06] MEDS: FERROUS SULFATE - FOR SA ONLY 330 MG/7.5 ML UDC GT SCH (09:47)
[2016-12-06] MEDS: CYANOCOBALAMIN 500 MCG TABLET GT SCH (09:47)
[2016-12-06] MEDS: ZINC SULFATE 220 MG CAPSULE GT SCH (09:47)
[2016-12-06] MEDS: SENNOSIDES 8.6 MG TABLET GT SCH (09:47)
[2016-12-06] MEDS: ASCORBIC ACID 500 MG TABLET GT SCH (09:47)
[2016-12-06] MEDS: ENOXAPARIN SODIUM 40 MG/0.4 ML DISP.SYRIN SQ SCH (09:48)
[2016-12-06] MEDS: HYDROGEN PEROXIDE 480 ML BOTTLE TP SCH ×2 (09:48→20:27)
[2016-12-06] MEDS: Z GUARD REMEDY 4 OZ OINT TP SCH ×2 (09:49→20:27)
[2016-12-06 12:00] VITALS: BP 102/55
--- NOTE | 2016-12-06 14:00 | NUR ---
Seen by AJ Hankins. She is aware of pt's CBC result. No new order.
--- NOTE | 2016-12-06 15:09 | NUR ---
RT Serrano relayed ABG result to Dr. John. Received order to place pt on SIMV 6 VT 450 PSV 15 FiO2 40% Peep +5 from 8AM to 4PM daily as tolerated, and on AC from 4PM to 8AM daily.
[2016-12-06 18:11] VITALS: BP 121/61
[2016-12-06 19:43] VITALS: BP 126/70
[2016-12-06] MEDS: DULOXETINE HCL 30 MG CAPSULE.DR GT SCH (21:54)
[2016-12-07 00:05] VITALS: BP 124/62
[2016-12-07] MEDS: ALBUTEROL HALF STRENGTH 1.25 MG/3 ML VIAL.NEB NEB SCH ×4 (00:52→20:08)
[2016-12-07] MEDS: IPRATROPIUM NEB FS 0.5 MG/2.5 ML AMPUL.NEB NEB SCH ×4 (00:52→20:08)
[2016-12-07] MEDS: LEVOTHYROXINE SODIUM 25 MCG TABLET GT SCH (05:20)
[2016-12-07] MEDS: FIBERSOURCE HN 1,000 ML BOTTLE GT PRN ×2 (05:28→22:14)
[2016-12-07 06:23] VITALS: BP 130/60
[2016-12-07 07:46] VITALS: BP 135/72
[2016-12-07] MEDS: ASCORBIC ACID 500 MG TABLET GT SCH (09:11)
[2016-12-07] MEDS: ENOXAPARIN SODIUM 40 MG/0.4 ML DISP.SYRIN SQ SCH (09:11)
[2016-12-07] MEDS: CYANOCOBALAMIN 500 MCG TABLET GT SCH (09:11)
[2016-12-07] MEDS: ESOMEPRAZOLE MAGNESIUM 40 MG GT SCH ×2 (09:11→17:31)
[2016-12-07] MEDS: ZINC SULFATE 220 MG CAPSULE GT SCH (09:11)
[2016-12-07] MEDS: FERROUS SULFATE - FOR SA ONLY 330 MG/7.5 ML UDC GT SCH (09:11)
[2016-12-07] MEDS: ASPIRIN 81 MG TAB.CHEW GT SCH (09:11)
[2016-12-07] MEDS: POLYETHYLENE GLYCOL 3350 17 GM POWD.PACK GT SCH (09:11)
[2016-12-07] MEDS: MECLIZINE HCL 12.5 MG TABLET GT SCH ×2 (09:11→20:21)
[2016-12-07] MEDS: SENNOSIDES 8.6 MG TABLET GT SCH (09:11)
[2016-12-07] MEDS: HYDROGEN PEROXIDE 480 ML BOTTLE TP SCH ×2 (09:12→20:21)
[2016-12-07] MEDS: Z GUARD REMEDY 4 OZ OINT TP SCH ×2 (09:12→20:22)
[2016-12-07 14:37] VITALS: BP 123/60
[2016-12-07 18:43] VITALS: BP 120/65
[2016-12-07 20:00] VITALS: BP 137/64
[2016-12-07] MEDS: DULOXETINE HCL 30 MG CAPSULE.DR GT SCH (21:54)
[2016-12-08] VITALS: BP 134/64
[2016-12-08] MEDS: IPRATROPIUM NEB FS 0.5 MG/2.5 ML AMPUL.NEB NEB SCH ×4 (01:09→19:52)
[2016-12-08] MEDS: ALBUTEROL HALF STRENGTH 1.25 MG/3 ML VIAL.NEB NEB SCH ×4 (01:09→19:52)
[2016-12-08] MEDS: LEVOTHYROXINE SODIUM 25 MCG TABLET GT SCH (05:33)
[2016-12-08] MEDS: ONDANSETRON 4 MG TAB.RAPDIS GT PRN ×2 (05:40→15:15)
[2016-12-08 06:16] VITALS: BP 124/58
[2016-12-08 07:46] VITALS: BP 120/72
[2016-12-08] MEDS: POLYETHYLENE GLYCOL 3350 17 GM POWD.PACK GT SCH (08:12)
[2016-12-08] MEDS: FERROUS SULFATE - FOR SA ONLY 330 MG/7.5 ML UDC GT SCH (08:12)
[2016-12-08] MEDS: MECLIZINE HCL 12.5 MG TABLET GT SCH ×2 (08:12→20:50)
[2016-12-08] MEDS: ASCORBIC ACID 500 MG TABLET GT SCH (08:12)
[2016-12-08] MEDS: SENNOSIDES 8.6 MG TABLET GT SCH (08:12)
[2016-12-08] MEDS: ESOMEPRAZOLE MAGNESIUM 40 MG GT SCH ×2 (08:12→17:03)
[2016-12-08] MEDS: ASPIRIN 81 MG TAB.CHEW GT SCH (08:12)
[2016-12-08] MEDS: ZINC SULFATE 220 MG CAPSULE GT SCH (08:12)
[2016-12-08] MEDS: CYANOCOBALAMIN 500 MCG TABLET GT SCH (08:12)
[2016-12-08] MEDS: ENOXAPARIN SODIUM 40 MG/0.4 ML DISP.SYRIN SQ SCH (08:13)
[2016-12-08] MEDS: Z GUARD REMEDY 4 OZ OINT TP SCH ×2 (08:14→20:50)
[2016-12-08] MEDS: HYDROGEN PEROXIDE 480 ML BOTTLE TP SCH ×2 (08:14→20:50)
[2016-12-08 12:00] VITALS: BP 109/69
--- NOTE | 2016-12-08 16:15 | NUR ---
Seen and examined by Deneen Hankins, PREPLEATER, NNO given.
[2016-12-08 17:05] VITALS: BP 112/77
--- NOTE | 2016-12-08 18:30 | NUR ---
RT TOLERATED SIMV MODE WELL. PLACED PT BACK ON AC MODE PER MD ORDER. NO SOB OR SIGNS OF DISTRESS NOTED AT THIS TIME. WILL CONTINUE TO MONITOR FOR ANY CHANGES. RN GRAB JACK WORKER NOTIFIED AND AWARE. Addendum: 12/08/16 at 1831 by FLORA SHANNON RT Amended: Links added.
[2016-12-08 20:19] VITALS: BP 141/65
[2016-12-08] MEDS: DULOXETINE HCL 30 MG CAPSULE.DR GT SCH (21:45)
[2016-12-09] VITALS: BP 137/67
[2016-12-09] MEDS: IPRATROPIUM NEB FS 0.5 MG/2.5 ML AMPUL.NEB NEB SCH ×4 (00:56→19:43)
[2016-12-09] MEDS: ALBUTEROL HALF STRENGTH 1.25 MG/3 ML VIAL.NEB NEB SCH ×4 (00:56→19:43)
[2016-12-09] MEDS: LEVOTHYROXINE SODIUM 25 MCG TABLET GT SCH (05:42)
[2016-12-09 06:00] VITALS: BP 108/66
[2016-12-09 08:07] VITALS: BP 132/77
[2016-12-09] MEDS: Z GUARD REMEDY 4 OZ OINT TP SCH ×2 (09:00→20:45)
[2016-12-09] MEDS: ASCORBIC ACID 500 MG TABLET GT SCH (09:59)
[2016-12-09] MEDS: MECLIZINE HCL 12.5 MG TABLET GT SCH ×2 (09:59→20:45)
[2016-12-09] MEDS: SENNOSIDES 8.6 MG TABLET GT SCH (09:59)
[2016-12-09] MEDS: ZINC SULFATE 220 MG CAPSULE GT SCH (09:59)
[2016-12-09] MEDS: ESOMEPRAZOLE MAGNESIUM 40 MG GT SCH ×2 (09:59→17:00)
[2016-12-09] MEDS: POLYETHYLENE GLYCOL 3350 17 GM POWD.PACK GT SCH (09:59)
[2016-12-09] MEDS: ASPIRIN 81 MG TAB.CHEW GT SCH (09:59)
[2016-12-09] MEDS: FERROUS SULFATE - FOR SA ONLY 330 MG/7.5 ML UDC GT SCH (09:59)
[2016-12-09] MEDS: ENOXAPARIN SODIUM 40 MG/0.4 ML DISP.SYRIN SQ SCH (09:59)
[2016-12-09] MEDS: CYANOCOBALAMIN 500 MCG TABLET GT SCH (09:59)
[2016-12-09] MEDS: HYDROGEN PEROXIDE 480 ML BOTTLE TP SCH ×2 (10:00→20:45)
[2016-12-09] MEDS: ONDANSETRON 4 MG TAB.RAPDIS GT PRN (10:00)
[2016-12-09 12:00] VITALS: BP 122/77
[2016-12-09 19:06] VITALS: BP 132/77
[2016-12-09] MEDS: DULOXETINE HCL 30 MG CAPSULE.DR GT SCH (21:09)
[2016-12-09 21:21] VITALS: BP 114/63
[2016-12-10 01:16] VITALS: BP 122/68
[2016-12-10] MEDS: ALBUTEROL HALF STRENGTH 1.25 MG/3 ML VIAL.NEB NEB SCH ×4 (02:00→19:39)
[2016-12-10] MEDS: IPRATROPIUM NEB FS 0.5 MG/2.5 ML AMPUL.NEB NEB SCH ×4 (02:00→19:39)
[2016-12-10] MEDS: FIBERSOURCE HN 1,000 ML BOTTLE GT PRN (02:07)
[2016-12-10] MEDS: LEVOTHYROXINE SODIUM 25 MCG TABLET GT SCH (05:41)
[2016-12-10] MEDS: CLONIDINE HCL 0.1 MG TABLET GT PRN (05:41)
[2016-12-10 06:11] VITALS: BP 126/72
[2016-12-10 07:33] VITALS: BP 132/71
[2016-12-10] MEDS: POLYETHYLENE GLYCOL 3350 17 GM POWD.PACK GT SCH (09:50)
[2016-12-10] MEDS: CYANOCOBALAMIN 500 MCG TABLET GT SCH (09:50)
[2016-12-10] MEDS: ASPIRIN 81 MG TAB.CHEW GT SCH (09:50)
[2016-12-10] MEDS: ASCORBIC ACID 500 MG TABLET GT SCH (09:50)
[2016-12-10] MEDS: ZINC SULFATE 220 MG CAPSULE GT SCH (09:50)
[2016-12-10] MEDS: MECLIZINE HCL 12.5 MG TABLET GT SCH ×2 (09:50→20:20)
[2016-12-10] MEDS: FERROUS SULFATE - FOR SA ONLY 330 MG/7.5 ML UDC GT SCH (09:50)
[2016-12-10] MEDS: ESOMEPRAZOLE MAGNESIUM 40 MG GT SCH ×2 (09:50→17:45)
[2016-12-10] MEDS: SENNOSIDES 8.6 MG TABLET GT SCH (09:50)
[2016-12-10] MEDS: Z GUARD REMEDY 4 OZ OINT TP SCH ×2 (09:51→20:21)
[2016-12-10] MEDS: ENOXAPARIN SODIUM 40 MG/0.4 ML DISP.SYRIN SQ SCH (09:51)
[2016-12-10] MEDS: HYDROGEN PEROXIDE 480 ML BOTTLE TP SCH ×2 (09:51→20:21)
[2016-12-10 12:00] VITALS: BP 129/64
[2016-12-10 18:20] VITALS: BP 112/70
--- NOTE | 2016-12-10 18:40 | NUR ---
RT NOTE PT ELENI VENT SIMV WEANING VERY WELL. NO DISTRESS NOTED THROUGHOUT TRIAL.
[2016-12-10 19:57] VITALS: BP 108/73
[2016-12-10] MEDS: DULOXETINE HCL 30 MG CAPSULE.DR GT SCH (21:05)
[2016-12-11 00:26] VITALS: BP 126/59
[2016-12-11] MEDS: IPRATROPIUM NEB FS 0.5 MG/2.5 ML AMPUL.NEB NEB SCH ×4 (02:09→19:37)
[2016-12-11] MEDS: ALBUTEROL HALF STRENGTH 1.25 MG/3 ML VIAL.NEB NEB SCH ×4 (02:09→19:37)
[2016-12-11] MEDS: LEVOTHYROXINE SODIUM 25 MCG TABLET GT SCH (05:08)
[2016-12-11 06:05] VITALS: BP 122/53
--- NOTE | 2016-12-11 07:45 | NUR ---
RT PLACED PT ON SIMV MODE WITH SETTINGS PER MD ORDER. TOLERATING WELL AT THIS TIME. SPO2 100%. NO SOB OR SIGNS OF DISTRESS NOTED AT THIS TIME. RN NOTIFIED AND AWARE. WILL CONTINUE TO MONITOR THE PATIENT FOR ANY CHANGE OF CONDITION. Addendum: 12/11/16 at 1534 by FLORA SHANNON RT Amended: Links added.
[2016-12-11 08:25] VITALS: BP 107/66
[2016-12-11] MEDS: POLYETHYLENE GLYCOL 3350 17 GM POWD.PACK GT SCH (09:00)
[2016-12-11] MEDS: Z GUARD REMEDY 4 OZ OINT TP SCH ×2 (09:00→21:02)
[2016-12-11] MEDS: ASPIRIN 81 MG TAB.CHEW GT SCH (09:00)
[2016-12-11] MEDS: ASCORBIC ACID 500 MG TABLET GT SCH (09:00)
[2016-12-11] MEDS: FERROUS SULFATE - FOR SA ONLY 330 MG/7.5 ML UDC GT SCH (09:00)
[2016-12-11] MEDS: HYDROGEN PEROXIDE 480 ML BOTTLE TP SCH ×2 (09:00→21:02)
[2016-12-11] MEDS: ZINC SULFATE 220 MG CAPSULE GT SCH (09:00)
[2016-12-11] MEDS: CYANOCOBALAMIN 500 MCG TABLET GT SCH (09:00)
[2016-12-11] MEDS: SENNOSIDES 8.6 MG TABLET GT SCH (09:00)
[2016-12-11] MEDS: MECLIZINE HCL 12.5 MG TABLET GT SCH ×2 (09:00→21:02)
[2016-12-11] MEDS: ESOMEPRAZOLE MAGNESIUM 40 MG GT SCH ×2 (09:00→17:18)
[2016-12-11] MEDS: ENOXAPARIN SODIUM 40 MG/0.4 ML DISP.SYRIN SQ SCH (09:00)
[2016-12-11] MEDS: FIBERSOURCE HN 1,000 ML BOTTLE GT PRN (12:20)
[2016-12-11 15:47] VITALS: BP 118/78
[2016-12-11] MEDS: ONDANSETRON 4 MG TAB.RAPDIS GT PRN (17:19)
[2016-12-11] MEDS: ACETAMINOPHEN 650 MG/20 ML UDC- FOR SA PATIENTS ONLY GT PRN (17:55)
[2016-12-11 18:07] VITALS: BP 123/75
[2016-12-11 19:45] VITALS: BP 110/59
[2016-12-11] MEDS: DULOXETINE HCL 30 MG CAPSULE.DR GT SCH (21:02)
[2016-12-12 00:54] VITALS: BP 115/72
[2016-12-12] MEDS: ALBUTEROL HALF STRENGTH 1.25 MG/3 ML VIAL.NEB NEB SCH ×4 (01:07→19:41)
[2016-12-12] MEDS: IPRATROPIUM NEB FS 0.5 MG/2.5 ML AMPUL.NEB NEB SCH ×4 (01:07→19:41)
[2016-12-12] MEDS: LEVOTHYROXINE SODIUM 25 MCG TABLET GT SCH (05:22)
[2016-12-12] MEDS: FIBERSOURCE HN 1,000 ML BOTTLE GT PRN ×2 (05:23→21:12)
[2016-12-12 06:11] VITALS: BP 124/68
[2016-12-12 08:00] VITALS: BP 121/72
[2016-12-12] MEDS: ASPIRIN 81 MG TAB.CHEW GT SCH (08:18)
[2016-12-12] MEDS: MECLIZINE HCL 12.5 MG TABLET GT SCH ×2 (08:18→21:12)
[2016-12-12] MEDS: CYANOCOBALAMIN 500 MCG TABLET GT SCH (08:18)
[2016-12-12] MEDS: POLYETHYLENE GLYCOL 3350 17 GM POWD.PACK GT SCH (08:18)
[2016-12-12] MEDS: ESOMEPRAZOLE MAGNESIUM 40 MG GT SCH ×2 (08:18→17:20)
[2016-12-12] MEDS: SENNOSIDES 8.6 MG TABLET GT SCH (08:18)
[2016-12-12] MEDS: ASCORBIC ACID 500 MG TABLET GT SCH (08:18)
[2016-12-12] MEDS: ZINC SULFATE 220 MG CAPSULE GT SCH (08:18)
[2016-12-12] MEDS: FERROUS SULFATE - FOR SA ONLY 330 MG/7.5 ML UDC GT SCH (08:18)
[2016-12-12] MEDS: ENOXAPARIN SODIUM 40 MG/0.4 ML DISP.SYRIN SQ SCH (08:20)
--- NOTE | 2016-12-12 11:50 | NUR ---
Left message for Dr. Cardenas to see pt for neurology consult.
[2016-12-12 12:00] VITALS: BP 121/72
[2016-12-12] MEDS: Z GUARD REMEDY 4 OZ OINT TP SCH ×2 (14:45→21:12)
[2016-12-12] MEDS: HYDROGEN PEROXIDE 480 ML BOTTLE TP SCH ×2 (14:45→21:12)
--- NOTE | 2016-12-12 15:39 | NUR ---
PLACED BACK TO AC 14, 450, 40%, PEEP +5. Addendum: 12/12/16 at 1540 by DRU ZHAO RT Amended: Links added.
[2016-12-12 18:00] VITALS: BP 124/70
[2016-12-12 19:47] VITALS: BP 131/61
[2016-12-12] MEDS: DULOXETINE HCL 30 MG CAPSULE.DR GT SCH (21:12)
[2016-12-13 00:46] VITALS: BP 128/66
[2016-12-13] MEDS: IPRATROPIUM NEB FS 0.5 MG/2.5 ML AMPUL.NEB NEB SCH ×4 (01:50→19:30)
[2016-12-13] MEDS: ALBUTEROL HALF STRENGTH 1.25 MG/3 ML VIAL.NEB NEB SCH ×4 (01:50→19:30)
[2016-12-13] MEDS: LEVOTHYROXINE SODIUM 25 MCG TABLET GT SCH (05:33)
[2016-12-13 06:07] VITALS: BP 122/75
--- NOTE | 2016-12-13 06:56 | NUR ---
RN NOTES Received new order from Dr. Foreman to continue Lovenox 40mg SQ daily for DVT prophylaxis, noted and carried out.
[2016-12-13] MEDS: MECLIZINE HCL 12.5 MG TABLET GT SCH ×2 (09:00→20:47)
[2016-12-13] MEDS: ENOXAPARIN SODIUM 40 MG/0.4 ML DISP.SYRIN SQ SCH (09:00)
[2016-12-13] MEDS: ASPIRIN 81 MG TAB.CHEW GT SCH (09:00)
[2016-12-13] MEDS: CYANOCOBALAMIN 500 MCG TABLET GT SCH (09:00)
[2016-12-13] MEDS: ZINC SULFATE 220 MG CAPSULE GT SCH (09:00)
[2016-12-13] MEDS: ASCORBIC ACID 500 MG TABLET GT SCH (09:00)
[2016-12-13] MEDS: SENNOSIDES 8.6 MG TABLET GT SCH (09:00)
[2016-12-13] MEDS: ESOMEPRAZOLE MAGNESIUM 40 MG GT SCH ×2 (09:00→17:59)
[2016-12-13] MEDS: POLYETHYLENE GLYCOL 3350 17 GM POWD.PACK GT SCH (09:00)
[2016-12-13] MEDS: FERROUS SULFATE - FOR SA ONLY 330 MG/7.5 ML UDC GT SCH (09:00)
[2016-12-13 09:34] VITALS: BP 141/88
[2016-12-13] MEDS: Z GUARD REMEDY 4 OZ OINT TP SCH ×2 (11:00→20:47)
[2016-12-13] MEDS: HYDROGEN PEROXIDE 480 ML BOTTLE TP SCH ×2 (11:00→20:47)
[2016-12-13 12:00] VITALS: BP 124/77
[2016-12-13] MEDS: FIBERSOURCE HN 1,000 ML BOTTLE GT PRN (14:42)
--- NOTE | 2016-12-13 16:50 | NUR ---
Received order from Dr. John to place pt on cool aerosol in AM and do ABG after 2 hours.
[2016-12-13 18:16] VITALS: BP 137/74
[2016-12-13 19:32] VITALS: BP 116/68
[2016-12-13] MEDS: DULOXETINE HCL 30 MG CAPSULE.DR GT SCH (21:49)
[2016-12-14 00:39] VITALS: BP 125/72
[2016-12-14] MEDS: ALBUTEROL HALF STRENGTH 1.25 MG/3 ML VIAL.NEB NEB SCH ×4 (01:58→19:47)
[2016-12-14] MEDS: IPRATROPIUM NEB FS 0.5 MG/2.5 ML AMPUL.NEB NEB SCH ×4 (01:58→19:47)
[2016-12-14] MEDS: LEVOTHYROXINE SODIUM 25 MCG TABLET GT SCH (05:06)
[2016-12-14] MEDS: FIBERSOURCE HN 1,000 ML BOTTLE GT PRN (05:38)
[2016-12-14 06:07] VITALS: BP 120/66
[2016-12-14 07:53] VITALS: BP 131/71
[2016-12-14] MEDS: FERROUS SULFATE - FOR SA ONLY 330 MG/7.5 ML UDC GT SCH (09:03)
[2016-12-14] MEDS: MECLIZINE HCL 12.5 MG TABLET GT SCH ×2 (09:03→20:21)
[2016-12-14] MEDS: ESOMEPRAZOLE MAGNESIUM 40 MG GT SCH ×2 (09:03→17:01)
[2016-12-14] MEDS: ASPIRIN 81 MG TAB.CHEW GT SCH (09:03)
[2016-12-14] MEDS: POLYETHYLENE GLYCOL 3350 17 GM POWD.PACK GT SCH (09:03)
[2016-12-14] MEDS: ZINC SULFATE 220 MG CAPSULE GT SCH (09:04)
[2016-12-14] MEDS: CYANOCOBALAMIN 500 MCG TABLET GT SCH (09:04)
[2016-12-14] MEDS: ASCORBIC ACID 500 MG TABLET GT SCH (09:04)
[2016-12-14] MEDS: SENNOSIDES 8.6 MG TABLET GT SCH (09:04)
[2016-12-14] MEDS: ENOXAPARIN SODIUM 40 MG/0.4 ML DISP.SYRIN SQ SCH (09:04)
[2016-12-14] MEDS: HYDROGEN PEROXIDE 480 ML BOTTLE TP SCH ×2 (09:33→20:21)
[2016-12-14] MEDS: Z GUARD REMEDY 4 OZ OINT TP SCH ×2 (09:33→20:21)
--- NOTE | 2016-12-14 10:16 | NUR ---
RT PLACED PT ON COOL AEROSOL 40% PER MD ORDER. ABG POST 2 HOURS, NOTIFIED RAMONA YOUNG AND DR. SALOMON RESULTS, PLACED PT ON COOL AEROSOL 35% PER DR SALOMON.
--- NOTE | 2016-12-14 11:15 | NUR ---
Followed-up with Dr. Cardenas to see resident for neuro consult, she asked patient a few questions but in Nepali and unable to follow command. Advised MD to give a call to resident's daughter Cheli, gave phone # to Dr. Cardenas and maybe she can be come when she evaluates her. MD took daughter's phone #.
[2016-12-14 15:18] VITALS: BP 135/70
[2016-12-14 18:07] VITALS: BP 128/68
--- NOTE | 2016-12-14 18:35 | NUR ---
Spoke with daughter, Cheli on the phone updating her that patient was placed on cool aerosol which she tolerated. As a result she will continue on cool aerosol during days shift and ventilator with SIMV setting at night. It was also mentioned to daughter that Dr. Cardenas came by but unable to communicate with resident so her phone # was given to MD. Appreciated the call.
[2016-12-14 19:46] VITALS: BP 116/72
[2016-12-14] MEDS: DULOXETINE HCL 30 MG CAPSULE.DR GT SCH (21:32)
[2016-12-15 00:44] VITALS: BP 120/70
[2016-12-15] MEDS: IPRATROPIUM NEB FS 0.5 MG/2.5 ML AMPUL.NEB NEB SCH ×4 (01:53→19:51)
[2016-12-15] MEDS: ALBUTEROL HALF STRENGTH 1.25 MG/3 ML VIAL.NEB NEB SCH ×4 (01:53→19:51)
[2016-12-15] MEDS: LEVOTHYROXINE SODIUM 25 MCG TABLET GT SCH (05:07)
[2016-12-15 06:11] VITALS: BP 128/66
[2016-12-15 07:33] VITALS: BP 118/70
[2016-12-15] MEDS: ASCORBIC ACID 500 MG TABLET GT SCH (09:00)
[2016-12-15] MEDS: Z GUARD REMEDY 4 OZ OINT TP SCH ×2 (09:00→21:50)
[2016-12-15] MEDS: SENNOSIDES 8.6 MG TABLET GT SCH (09:00)
[2016-12-15] MEDS: POLYETHYLENE GLYCOL 3350 17 GM POWD.PACK GT SCH (09:00)
[2016-12-15] MEDS: MECLIZINE HCL 12.5 MG TABLET GT SCH ×2 (09:00→21:50)
[2016-12-15] MEDS: ENOXAPARIN SODIUM 40 MG/0.4 ML DISP.SYRIN SQ SCH (09:00)
[2016-12-15] MEDS: ZINC SULFATE 220 MG CAPSULE GT SCH (09:00)
[2016-12-15] MEDS: HYDROGEN PEROXIDE 480 ML BOTTLE TP SCH ×2 (09:00→21:50)
[2016-12-15] MEDS: FERROUS SULFATE - FOR SA ONLY 330 MG/7.5 ML UDC GT SCH (09:00)
[2016-12-15] MEDS: CYANOCOBALAMIN 500 MCG TABLET GT SCH (09:00)
[2016-12-15] MEDS: ASPIRIN 81 MG TAB.CHEW GT SCH (09:00)
[2016-12-15] MEDS: ESOMEPRAZOLE MAGNESIUM 40 MG GT SCH ×2 (09:00→16:15)
[2016-12-15 18:19] VITALS: BP 120/70
[2016-12-15 18:48] VITALS: BP 120/63
[2016-12-15 20:00] VITALS: BP 140/75
[2016-12-15] MEDS: FIBERSOURCE HN 1,000 ML BOTTLE GT PRN (20:28)
--- NOTE | 2016-12-15 21:00 | NUR ---
RN NOTES Noted pt with left and right buttock redness. Notified Dr. Good and received new orders noted and carried out.
[2016-12-15] MEDS: DULOXETINE HCL 30 MG CAPSULE.DR GT SCH (21:50)
[2016-12-16 00:56] VITALS: BP 135/65
[2016-12-16] MEDS: IPRATROPIUM NEB FS 0.5 MG/2.5 ML AMPUL.NEB NEB SCH ×4 (02:06→20:04)
[2016-12-16] MEDS: ALBUTEROL HALF STRENGTH 1.25 MG/3 ML VIAL.NEB NEB SCH ×4 (02:06→20:04)
[2016-12-16] MEDS: LEVOTHYROXINE SODIUM 25 MCG TABLET GT SCH (05:04)
[2016-12-16 06:34] VITALS: BP 136/67
--- NOTE | 2016-12-16 07:36 | NUR ---
PT RECEIVED ON VENT AND PLACED INTO COOL AEROSOL @ 35% FIO2. Addendum: 12/16/16 at 0737 by DRU ZHAO RT Amended: Links added.
[2016-12-16 08:05] VITALS: BP 147/73
[2016-12-16] MEDS: CYANOCOBALAMIN 500 MCG TABLET GT SCH (08:29)
[2016-12-16] MEDS: MECLIZINE HCL 12.5 MG TABLET GT SCH ×2 (08:29→21:20)
[2016-12-16] MEDS: ZINC SULFATE 220 MG CAPSULE GT SCH (08:29)
[2016-12-16] MEDS: SENNOSIDES 8.6 MG TABLET GT SCH (08:29)
[2016-12-16] MEDS: POLYETHYLENE GLYCOL 3350 17 GM POWD.PACK GT SCH (08:29)
[2016-12-16] MEDS: ASPIRIN 81 MG TAB.CHEW GT SCH (08:29)
[2016-12-16] MEDS: FERROUS SULFATE - FOR SA ONLY 330 MG/7.5 ML UDC GT SCH (08:29)
[2016-12-16] MEDS: ASCORBIC ACID 500 MG TABLET GT SCH (08:29)
[2016-12-16] MEDS: ESOMEPRAZOLE MAGNESIUM 40 MG GT SCH (08:29)
[2016-12-16 08:30] VITALS: BP 147/93
[2016-12-16] MEDS: ENOXAPARIN SODIUM 40 MG/0.4 ML DISP.SYRIN SQ SCH (09:00)
[2016-12-16 19:35] VITALS: BP 147/73
[2016-12-16 19:48] VITALS: BP 120/75
[2016-12-16] MEDS: Z GUARD REMEDY 2 OZ OINT TP SCH (21:19)
[2016-12-16] MEDS: HYDROGEN PEROXIDE 480 ML BOTTLE TP SCH (21:19)
[2016-12-16] MEDS: Z GUARD REMEDY 4 OZ OINT TP SCH (21:20)
[2016-12-16] MEDS: DULOXETINE HCL 30 MG CAPSULE.DR GT SCH (21:20)
[2016-12-17] VITALS (7 sets, daily range): BP systolic 107–139; BP diastolic 60–81
[2016-12-17] MEDS: ALBUTEROL HALF STRENGTH 1.25 MG/3 ML VIAL.NEB NEB SCH ×4 (01:30→20:27)
[2016-12-17] MEDS: IPRATROPIUM NEB FS 0.5 MG/2.5 ML AMPUL.NEB NEB SCH ×4 (01:30→20:27)
[2016-12-17] MEDS: LEVOTHYROXINE SODIUM 25 MCG TABLET GT SCH (05:46)
--- NOTE | 2016-12-17 07:09 | NUR ---
PLACED INTO COOL AEROSOL FOR DAILY WEANING PER MD ORDER. Addendum: 12/17/16 at 0726 by DRU ZHAO RT Amended: Links added.
[2016-12-17] MEDS: MECLIZINE HCL 12.5 MG TABLET GT SCH ×2 (09:42→21:31)
[2016-12-17] MEDS: FERROUS SULFATE - FOR SA ONLY 330 MG/7.5 ML UDC GT SCH (09:42)
[2016-12-17] MEDS: ZINC SULFATE 220 MG CAPSULE GT SCH (09:42)
[2016-12-17] MEDS: SENNOSIDES 8.6 MG TABLET GT SCH (09:42)
[2016-12-17] MEDS: ASPIRIN 81 MG TAB.CHEW GT SCH (09:42)
[2016-12-17] MEDS: CYANOCOBALAMIN 500 MCG TABLET GT SCH (09:42)
[2016-12-17] MEDS: POLYETHYLENE GLYCOL 3350 17 GM POWD.PACK GT SCH (09:42)
[2016-12-17] MEDS: ASCORBIC ACID 500 MG TABLET GT SCH (09:42)
[2016-12-17] MEDS: ESOMEPRAZOLE MAGNESIUM 40 MG GT SCH ×2 (09:42→17:22)
[2016-12-17] MEDS: ENOXAPARIN SODIUM 40 MG/0.4 ML DISP.SYRIN SQ SCH (09:43)
[2016-12-17] MEDS: Z GUARD REMEDY 4 OZ OINT TP SCH ×2 (12:00→21:31)
[2016-12-17] MEDS: HYDROGEN PEROXIDE 480 ML BOTTLE TP SCH ×2 (12:00→21:31)
[2016-12-17] MEDS: Z GUARD REMEDY 2 OZ OINT TP SCH ×2 (12:00→21:31)
[2016-12-17] MEDS: DULOXETINE HCL 30 MG CAPSULE.DR GT SCH (21:31)
[2016-12-18] VITALS: BP 137/76
[2016-12-18] MEDS: IPRATROPIUM NEB FS 0.5 MG/2.5 ML AMPUL.NEB NEB SCH ×4 (02:07→20:14)
[2016-12-18] MEDS: ALBUTEROL HALF STRENGTH 1.25 MG/3 ML VIAL.NEB NEB SCH ×4 (02:07→20:15)
[2016-12-18] MEDS: FIBERSOURCE HN 1,000 ML BOTTLE GT PRN (04:42)
[2016-12-18 06:00] VITALS: BP 139/76
[2016-12-18] MEDS: LEVOTHYROXINE SODIUM 25 MCG TABLET GT SCH (06:00)
[2016-12-18 07:45] VITALS: BP 130/77
[2016-12-18] MEDS: MECLIZINE HCL 12.5 MG TABLET GT SCH ×2 (08:05→21:32)
[2016-12-18] MEDS: ZINC SULFATE 220 MG CAPSULE GT SCH (08:05)
[2016-12-18] MEDS: POLYETHYLENE GLYCOL 3350 17 GM POWD.PACK GT SCH (08:05)
[2016-12-18] MEDS: FERROUS SULFATE - FOR SA ONLY 330 MG/7.5 ML UDC GT SCH (08:05)
[2016-12-18] MEDS: SENNOSIDES 8.6 MG TABLET GT SCH (08:05)
[2016-12-18] MEDS: ASPIRIN 81 MG TAB.CHEW GT SCH (08:05)
[2016-12-18] MEDS: ASCORBIC ACID 500 MG TABLET GT SCH (08:05)
[2016-12-18] MEDS: ESOMEPRAZOLE MAGNESIUM 40 MG GT SCH ×2 (08:05→16:39)
[2016-12-18] MEDS: CYANOCOBALAMIN 500 MCG TABLET GT SCH (08:05)
[2016-12-18] MEDS: ENOXAPARIN SODIUM 40 MG/0.4 ML DISP.SYRIN SQ SCH (08:06)
[2016-12-18] MEDS: HYDROGEN PEROXIDE 480 ML BOTTLE TP SCH ×2 (08:06→21:32)
[2016-12-18] MEDS: Z GUARD REMEDY 4 OZ OINT TP SCH ×2 (08:06→21:32)
[2016-12-18] MEDS: Z GUARD REMEDY 2 OZ OINT TP SCH ×2 (08:06→21:32)
[2016-12-18 12:00] VITALS: BP 123/75
[2016-12-18] MEDS: ONDANSETRON 4 MG TAB.RAPDIS GT PRN (17:20)
[2016-12-18 18:18] VITALS: BP 128/71
[2016-12-18 19:45] VITALS: BP 115/59
[2016-12-18] MEDS: DULOXETINE HCL 30 MG CAPSULE.DR GT SCH (21:32)
[2016-12-19 00:04] VITALS: BP 119/64
[2016-12-19] MEDS: IPRATROPIUM NEB FS 0.5 MG/2.5 ML AMPUL.NEB NEB SCH ×4 (01:08→20:16)
[2016-12-19] MEDS: ALBUTEROL HALF STRENGTH 1.25 MG/3 ML VIAL.NEB NEB SCH ×4 (01:09→20:16)
[2016-12-19] MEDS: LEVOTHYROXINE SODIUM 25 MCG TABLET GT SCH (05:42)
[2016-12-19 06:02] VITALS: BP 112/63
[2016-12-19 07:45] VITALS: BP 124/86
[2016-12-19] MEDS: ZINC SULFATE 220 MG CAPSULE GT SCH (09:55)
[2016-12-19] MEDS: POLYETHYLENE GLYCOL 3350 17 GM POWD.PACK GT SCH (09:55)
[2016-12-19] MEDS: SENNOSIDES 8.6 MG TABLET GT SCH (09:55)
[2016-12-19] MEDS: MECLIZINE HCL 12.5 MG TABLET GT SCH ×2 (09:55→21:58)
[2016-12-19] MEDS: ASPIRIN 81 MG TAB.CHEW GT SCH (09:55)
[2016-12-19] MEDS: FERROUS SULFATE - FOR SA ONLY 330 MG/7.5 ML UDC GT SCH (09:55)
[2016-12-19] MEDS: CYANOCOBALAMIN 500 MCG TABLET GT SCH (09:55)
[2016-12-19] MEDS: ESOMEPRAZOLE MAGNESIUM 40 MG GT SCH ×2 (09:55→16:40)
[2016-12-19] MEDS: ASCORBIC ACID 500 MG TABLET GT SCH (09:55)
[2016-12-19] MEDS: ENOXAPARIN SODIUM 40 MG/0.4 ML DISP.SYRIN SQ SCH (09:56)
[2016-12-19 12:00] VITALS: BP 124/62
[2016-12-19] MEDS: ONDANSETRON 4 MG TAB.RAPDIS GT PRN (15:32)
[2016-12-19] MEDS: Z GUARD REMEDY 2 OZ OINT TP SCH ×2 (16:30→21:58)
[2016-12-19] MEDS: Z GUARD REMEDY 4 OZ OINT TP SCH ×2 (16:30→21:58)
[2016-12-19] MEDS: HYDROGEN PEROXIDE 480 ML BOTTLE TP SCH ×2 (16:30→21:58)
--- NOTE | 2016-12-19 16:30 | NUR ---
Notified Dr. John that pt's daughter is asking if ABG can be done since pt has not been as responsive to her today as before. O2 sat 97% HR 99. Dr. John ordered ABG.
[2016-12-19 16:43] LABS: ABG BASE EXCESS 12.2 mmol/L; ABG OXYGEN SATURATION 98.7 % (92.0-98.5); ABG PCO2 80.2 mmHg (35.0-45.0); ABG PH 7.331 (7.350-7.450); COHb 0.3 % (0.5-1.5); O2Hb 97.4 % (94.0-97.0); SITE, ABG Right Radial; VENT MODE, BG T/PIECE 40%
--- NOTE | 2016-12-19 16:45 | NUR ---
pt awake, placed on cool aerosol this am 40% t/piece. tolerated fairly. blood gas was ordered @1630 and result was Respiratory failure. back to ventilator per Dr. John. A/C-14 VT450, FIO2 30% PEEP +5CM. CONTINUE VENTILATOR SUPPORT. JAYJAY,APPLICATION TRAINER
--- NOTE | 2016-12-19 17:00 | NUR ---
Relayed ABG result to Dr. John. Received order to place pt back on AC mode. Pt was placed by RT Zhang on AC 14 Vt 450 FiO2 30% Peep +5.
[2016-12-19 18:00] VITALS: BP 122/60
[2016-12-19 19:52] VITALS: BP 111/73
[2016-12-19] MEDS: DULOXETINE HCL 30 MG CAPSULE.DR GT SCH (21:59)
[2016-12-20 00:27] VITALS: BP 119/64
[2016-12-20] MEDS: ALBUTEROL HALF STRENGTH 1.25 MG/3 ML VIAL.NEB NEB SCH ×4 (02:24→20:13)
[2016-12-20] MEDS: IPRATROPIUM NEB FS 0.5 MG/2.5 ML AMPUL.NEB NEB SCH ×4 (02:24→20:13)
[2016-12-20] MEDS: LEVOTHYROXINE SODIUM 25 MCG TABLET GT SCH (05:24)
[2016-12-20 06:06] VITALS: BP 126/69
[2016-12-20 07:29] VITALS: BP 126/74
[2016-12-20] MEDS: CYANOCOBALAMIN 500 MCG TABLET GT SCH (09:29)
[2016-12-20] MEDS: ESOMEPRAZOLE MAGNESIUM 40 MG GT SCH ×2 (09:29→17:47)
[2016-12-20] MEDS: FERROUS SULFATE - FOR SA ONLY 330 MG/7.5 ML UDC GT SCH (09:29)
[2016-12-20] MEDS: MECLIZINE HCL 12.5 MG TABLET GT SCH ×2 (09:29→21:48)
[2016-12-20] MEDS: ZINC SULFATE 220 MG CAPSULE GT SCH (09:29)
[2016-12-20] MEDS: POLYETHYLENE GLYCOL 3350 17 GM POWD.PACK GT SCH (09:29)
[2016-12-20] MEDS: ASPIRIN 81 MG TAB.CHEW GT SCH (09:29)
[2016-12-20] MEDS: SENNOSIDES 8.6 MG TABLET GT SCH (09:29)
[2016-12-20] MEDS: ENOXAPARIN SODIUM 40 MG/0.4 ML DISP.SYRIN SQ SCH (09:30)
[2016-12-20] MEDS: ASCORBIC ACID 500 MG TABLET GT SCH (09:30)
[2016-12-20] MEDS: HYDROGEN PEROXIDE 480 ML BOTTLE TP SCH ×2 (10:45→21:48)
[2016-12-20] MEDS: Z GUARD REMEDY 4 OZ OINT TP SCH ×2 (10:45→21:48)
[2016-12-20] MEDS: Z GUARD REMEDY 2 OZ OINT TP SCH ×2 (10:45→21:48)
[2016-12-20 12:00] VITALS: BP 120/64
[2016-12-20] MEDS: FIBERSOURCE HN 1,000 ML BOTTLE GT PRN (17:47)
[2016-12-20 18:00] VITALS: BP 122/66
[2016-12-20 19:47] VITALS: BP 133/76
[2016-12-20] MEDS: DULOXETINE HCL 30 MG CAPSULE.DR GT SCH (21:49)
[2016-12-21 00:16] VITALS: BP 122/64
[2016-12-21] MEDS: IPRATROPIUM NEB FS 0.5 MG/2.5 ML AMPUL.NEB NEB SCH ×4 (01:25→20:08)
[2016-12-21] MEDS: ALBUTEROL HALF STRENGTH 1.25 MG/3 ML VIAL.NEB NEB SCH ×4 (01:25→20:08)
[2016-12-21] MEDS: LEVOTHYROXINE SODIUM 25 MCG TABLET GT SCH (05:45)
[2016-12-21 06:06] VITALS: BP 126/58
[2016-12-21 07:48] VITALS: BP 119/64
[2016-12-21] MEDS: ASPIRIN 81 MG TAB.CHEW GT SCH (08:56)
[2016-12-21] MEDS: SENNOSIDES 8.6 MG TABLET GT SCH (08:56)
[2016-12-21] MEDS: POLYETHYLENE GLYCOL 3350 17 GM POWD.PACK GT SCH (08:56)
[2016-12-21] MEDS: FERROUS SULFATE - FOR SA ONLY 330 MG/7.5 ML UDC GT SCH (08:56)
[2016-12-21] MEDS: ESOMEPRAZOLE MAGNESIUM 40 MG GT SCH ×2 (08:56→16:52)
[2016-12-21] MEDS: ZINC SULFATE 220 MG CAPSULE GT SCH (08:58)
[2016-12-21] MEDS: ASCORBIC ACID 500 MG TABLET GT SCH (08:58)
[2016-12-21] MEDS: ENOXAPARIN SODIUM 40 MG/0.4 ML DISP.SYRIN SQ SCH (08:59)
[2016-12-21] MEDS: CYANOCOBALAMIN 500 MCG TABLET GT SCH (09:00)
[2016-12-21] MEDS: HYDROGEN PEROXIDE 480 ML BOTTLE TP SCH ×2 (09:00→21:00)
[2016-12-21] MEDS: Z GUARD REMEDY 2 OZ OINT TP SCH ×2 (09:00→21:00)
[2016-12-21] MEDS: MECLIZINE HCL 12.5 MG TABLET GT SCH ×2 (09:00→21:00)
[2016-12-21] MEDS: Z GUARD REMEDY 4 OZ OINT TP SCH ×2 (09:00→21:00)
[2016-12-21 13:47] VITALS: BP 119/64
--- NOTE | 2016-12-21 16:15 | NUR ---
Seen and examined by Dr. Charla Fontanez, gave her a report on patient's overall status, that she was being weaned off ventilator last week, doing well, on Monday ABG done showing increased pC02 level 80.2, and placed her back on AC. She remain to have episode of vomiting, and currently on PRN Zofran. Stable at this time.
[2016-12-21] MEDS: FIBERSOURCE HN 1,000 ML BOTTLE GT PRN (17:05)
[2016-12-21 18:04] VITALS: BP 118/66
[2016-12-21 19:53] VITALS: BP 116/71
[2016-12-21] MEDS: DULOXETINE HCL 30 MG CAPSULE.DR GT SCH (22:01)
[2016-12-22 00:24] VITALS: BP 140/83
[2016-12-22] MEDS: ALBUTEROL HALF STRENGTH 1.25 MG/3 ML VIAL.NEB NEB SCH ×4 (01:59→20:00)
[2016-12-22] MEDS: IPRATROPIUM NEB FS 0.5 MG/2.5 ML AMPUL.NEB NEB SCH ×4 (01:59→20:00)
[2016-12-22] MEDS: LEVOTHYROXINE SODIUM 25 MCG TABLET GT SCH (05:39)
[2016-12-22 06:13] VITALS: BP 128/74
[2016-12-22 08:15] VITALS: BP 123/72
[2016-12-22] MEDS: ASPIRIN 81 MG TAB.CHEW GT SCH (09:48)
[2016-12-22] MEDS: MECLIZINE HCL 12.5 MG TABLET GT SCH ×2 (09:48→21:44)
[2016-12-22] MEDS: CYANOCOBALAMIN 500 MCG TABLET GT SCH (09:49)
[2016-12-22] MEDS: FERROUS SULFATE - FOR SA ONLY 330 MG/7.5 ML UDC GT SCH (09:49)
[2016-12-22] MEDS: ASCORBIC ACID 500 MG TABLET GT SCH (09:49)
[2016-12-22] MEDS: SENNOSIDES 8.6 MG TABLET GT SCH (09:49)
[2016-12-22] MEDS: POLYETHYLENE GLYCOL 3350 17 GM POWD.PACK GT SCH (09:49)
[2016-12-22] MEDS: ESOMEPRAZOLE MAGNESIUM 40 MG GT SCH ×2 (09:49→16:26)
[2016-12-22] MEDS: Z GUARD REMEDY 4 OZ OINT TP SCH ×2 (09:50→21:44)
[2016-12-22] MEDS: ZINC SULFATE 220 MG CAPSULE GT SCH (09:50)
[2016-12-22] MEDS: HYDROGEN PEROXIDE 480 ML BOTTLE TP SCH ×2 (09:50→21:44)
[2016-12-22] MEDS: Z GUARD REMEDY 2 OZ OINT TP SCH ×2 (09:50→21:44)
[2016-12-22] MEDS: ENOXAPARIN SODIUM 40 MG/0.4 ML DISP.SYRIN SQ SCH (09:50)
[2016-12-22 13:59] VITALS: BP 123/72
[2016-12-22 18:07] VITALS: BP 122/69
[2016-12-22 19:52] VITALS: BP 130/62
[2016-12-22] MEDS: DULOXETINE HCL 30 MG CAPSULE.DR GT SCH (21:44)
[2016-12-23] VITALS: BP 123/74
[2016-12-23] MEDS: IPRATROPIUM NEB FS 0.5 MG/2.5 ML AMPUL.NEB NEB SCH ×4 (01:30→20:14)
[2016-12-23] MEDS: ALBUTEROL HALF STRENGTH 1.25 MG/3 ML VIAL.NEB NEB SCH ×4 (01:30→20:14)
[2016-12-23 06:00] VITALS: BP 131/88
[2016-12-23] MEDS: LEVOTHYROXINE SODIUM 25 MCG TABLET GT SCH (06:29)
[2016-12-23] MEDS: FIBERSOURCE HN 1,000 ML BOTTLE GT PRN (06:29)
[2016-12-23 07:45] VITALS: BP 135/52
[2016-12-23] MEDS: ASCORBIC ACID 500 MG TABLET GT SCH (09:24)
[2016-12-23] MEDS: SENNOSIDES 8.6 MG TABLET GT SCH (09:24)
[2016-12-23] MEDS: ZINC SULFATE 220 MG CAPSULE GT SCH (09:24)
[2016-12-23] MEDS: POLYETHYLENE GLYCOL 3350 17 GM POWD.PACK GT SCH (09:24)
[2016-12-23] MEDS: CYANOCOBALAMIN 500 MCG TABLET GT SCH (09:24)
[2016-12-23] MEDS: ESOMEPRAZOLE MAGNESIUM 40 MG GT SCH ×2 (09:24→16:52)
[2016-12-23] MEDS: ASPIRIN 81 MG TAB.CHEW GT SCH (09:24)
[2016-12-23] MEDS: MECLIZINE HCL 12.5 MG TABLET GT SCH ×2 (09:24→21:34)
[2016-12-23] MEDS: HYDROGEN PEROXIDE 480 ML BOTTLE TP SCH ×2 (09:26→21:34)
[2016-12-23] MEDS: Z GUARD REMEDY 4 OZ OINT TP SCH ×2 (09:26→21:35)
[2016-12-23] MEDS: Z GUARD REMEDY 2 OZ OINT TP SCH ×2 (09:26→21:34)
[2016-12-23] MEDS: ENOXAPARIN SODIUM 40 MG/0.4 ML DISP.SYRIN SQ SCH (09:26)
[2016-12-23] MEDS: FERROUS SULFATE - FOR SA ONLY 330 MG/7.5 ML UDC GT SCH (09:32)
[2016-12-23 15:29] VITALS: BP 135/52
[2016-12-23 18:52] VITALS: BP 128/68
[2016-12-23 19:38] VITALS: BP 129/63
[2016-12-23] MEDS: DULOXETINE HCL 30 MG CAPSULE.DR GT SCH (21:35)
[2016-12-24] VITALS: BP 132/78
[2016-12-24] MEDS: FIBERSOURCE HN 1,000 ML BOTTLE GT PRN (00:13)
[2016-12-24] MEDS: ALBUTEROL HALF STRENGTH 1.25 MG/3 ML VIAL.NEB NEB SCH ×4 (00:40→20:09)
[2016-12-24] MEDS: IPRATROPIUM NEB FS 0.5 MG/2.5 ML AMPUL.NEB NEB SCH ×4 (00:40→20:09)
[2016-12-24] MEDS: LEVOTHYROXINE SODIUM 25 MCG TABLET GT SCH (06:19)
[2016-12-24 06:22] VITALS: BP 130/75
[2016-12-24 08:01] VITALS: BP 126/74
[2016-12-24] MEDS: POLYETHYLENE GLYCOL 3350 17 GM POWD.PACK GT SCH (08:47)
[2016-12-24] MEDS: ASPIRIN 81 MG TAB.CHEW GT SCH (08:47)
[2016-12-24] MEDS: CYANOCOBALAMIN 500 MCG TABLET GT SCH (08:47)
[2016-12-24] MEDS: ASCORBIC ACID 500 MG TABLET GT SCH (08:47)
[2016-12-24] MEDS: SENNOSIDES 8.6 MG TABLET GT SCH (08:47)
[2016-12-24] MEDS: MECLIZINE HCL 12.5 MG TABLET GT SCH ×2 (08:47→21:03)
[2016-12-24] MEDS: ENOXAPARIN SODIUM 40 MG/0.4 ML DISP.SYRIN SQ SCH (08:47)
[2016-12-24] MEDS: ESOMEPRAZOLE MAGNESIUM 40 MG GT SCH ×2 (08:47→17:31)
[2016-12-24] MEDS: FERROUS SULFATE - FOR SA ONLY 330 MG/7.5 ML UDC GT SCH (08:47)
[2016-12-24] MEDS: ZINC SULFATE 220 MG CAPSULE GT SCH (08:47)
[2016-12-24 12:00] VITALS: BP 104/58
[2016-12-24] MEDS: HYDROGEN PEROXIDE 480 ML BOTTLE TP SCH ×2 (15:43→21:03)
[2016-12-24] MEDS: Z GUARD REMEDY 4 OZ OINT TP SCH ×2 (15:43→21:03)
[2016-12-24] MEDS: Z GUARD REMEDY 2 OZ OINT TP SCH ×2 (15:43→21:03)
[2016-12-24 18:38] VITALS: BP 121/76
[2016-12-24 19:46] VITALS: BP 134/75
[2016-12-24] MEDS: DULOXETINE HCL 30 MG CAPSULE.DR GT SCH (21:03)
[2016-12-25 00:26] VITALS: BP 130/78
[2016-12-25] MEDS: IPRATROPIUM NEB FS 0.5 MG/2.5 ML AMPUL.NEB NEB SCH ×4 (01:19→19:31)
[2016-12-25] MEDS: ALBUTEROL HALF STRENGTH 1.25 MG/3 ML VIAL.NEB NEB SCH ×4 (01:19→19:31)
[2016-12-25] MEDS: LEVOTHYROXINE SODIUM 25 MCG TABLET GT SCH (05:42)
[2016-12-25 06:15] VITALS: BP 128/66
[2016-12-25 08:02] VITALS: BP 125/64
[2016-12-25] MEDS: POLYETHYLENE GLYCOL 3350 17 GM POWD.PACK GT SCH (09:40)
[2016-12-25] MEDS: ASCORBIC ACID 500 MG TABLET GT SCH (09:40)
[2016-12-25] MEDS: ASPIRIN 81 MG TAB.CHEW GT SCH (09:40)
[2016-12-25] MEDS: ENOXAPARIN SODIUM 40 MG/0.4 ML DISP.SYRIN SQ SCH (09:40)
[2016-12-25] MEDS: SENNOSIDES 8.6 MG TABLET GT SCH (09:40)
[2016-12-25] MEDS: MECLIZINE HCL 12.5 MG TABLET GT SCH ×2 (09:40→21:26)
[2016-12-25] MEDS: CYANOCOBALAMIN 500 MCG TABLET GT SCH (09:40)
[2016-12-25] MEDS: ZINC SULFATE 220 MG CAPSULE GT SCH (09:40)
[2016-12-25] MEDS: FERROUS SULFATE - FOR SA ONLY 330 MG/7.5 ML UDC GT SCH (09:40)
[2016-12-25] MEDS: ESOMEPRAZOLE MAGNESIUM 40 MG GT SCH ×2 (09:40→17:43)
[2016-12-25] MEDS: HYDROGEN PEROXIDE 480 ML BOTTLE TP SCH ×2 (09:41→21:26)
[2016-12-25] MEDS: Z GUARD REMEDY 2 OZ OINT TP SCH ×2 (09:41→21:26)
[2016-12-25] MEDS: Z GUARD REMEDY 4 OZ OINT TP SCH ×2 (09:41→21:26)
[2016-12-25 13:40] VITALS: BP 118/73
[2016-12-25 18:27] VITALS: BP 123/70
[2016-12-25 19:37] VITALS: BP 130/67
[2016-12-25] MEDS: DULOXETINE HCL 30 MG CAPSULE.DR GT SCH (21:26)
[2016-12-26 00:12] VITALS: BP 119/62
[2016-12-26] MEDS: ALBUTEROL HALF STRENGTH 1.25 MG/3 ML VIAL.NEB NEB SCH ×4 (01:39→19:43)
[2016-12-26] MEDS: IPRATROPIUM NEB FS 0.5 MG/2.5 ML AMPUL.NEB NEB SCH ×4 (01:39→19:43)
[2016-12-26] MEDS: LEVOTHYROXINE SODIUM 25 MCG TABLET GT SCH (05:21)
[2016-12-26 06:40] VITALS: BP 116/59
[2016-12-26 07:55] VITALS: BP 123/57
[2016-12-26] MEDS: ASPIRIN 81 MG TAB.CHEW GT SCH (09:24)
[2016-12-26] MEDS: POLYETHYLENE GLYCOL 3350 17 GM POWD.PACK GT SCH (09:24)
[2016-12-26] MEDS: FERROUS SULFATE - FOR SA ONLY 330 MG/7.5 ML UDC GT SCH (09:24)
[2016-12-26] MEDS: ESOMEPRAZOLE MAGNESIUM 40 MG GT SCH ×2 (09:24→16:35)
[2016-12-26] MEDS: MECLIZINE HCL 12.5 MG TABLET GT SCH ×2 (09:24→21:05)
[2016-12-26] MEDS: CYANOCOBALAMIN 500 MCG TABLET GT SCH (09:24)
[2016-12-26] MEDS: SENNOSIDES 8.6 MG TABLET GT SCH (09:24)
[2016-12-26] MEDS: ASCORBIC ACID 500 MG TABLET GT SCH (09:24)
[2016-12-26] MEDS: ZINC SULFATE 220 MG CAPSULE GT SCH (09:24)
[2016-12-26] MEDS: ENOXAPARIN SODIUM 40 MG/0.4 ML DISP.SYRIN SQ SCH (09:59)
[2016-12-26] MEDS: Z GUARD REMEDY 4 OZ OINT TP SCH (11:15)
[2016-12-26] MEDS: Z GUARD REMEDY 2 OZ OINT TP SCH ×2 (11:15→21:06)
[2016-12-26] MEDS: HYDROGEN PEROXIDE 480 ML BOTTLE TP SCH ×2 (11:15→21:05)
[2016-12-26 12:00] VITALS: BP 114/68
[2016-12-26 18:00] VITALS: BP 118/76
[2016-12-26 20:05] VITALS: BP 111/66
[2016-12-26] MEDS: DULOXETINE HCL 30 MG CAPSULE.DR GT SCH (21:06)
[2016-12-27 00:17] VITALS: BP 124/72
[2016-12-27] MEDS: ALBUTEROL HALF STRENGTH 1.25 MG/3 ML VIAL.NEB NEB SCH ×4 (01:37→20:05)
[2016-12-27] MEDS: IPRATROPIUM NEB FS 0.5 MG/2.5 ML AMPUL.NEB NEB SCH ×4 (01:37→20:05)
[2016-12-27] MEDS: LEVOTHYROXINE SODIUM 25 MCG TABLET GT SCH (05:13)
[2016-12-27 06:05] VITALS: BP 116/69
[2016-12-27 08:12] VITALS: BP 123/67
[2016-12-27] MEDS: CYANOCOBALAMIN 500 MCG TABLET GT SCH (09:00)
[2016-12-27] MEDS: ZINC SULFATE 220 MG CAPSULE GT SCH (09:00)
[2016-12-27] MEDS: POLYETHYLENE GLYCOL 3350 17 GM POWD.PACK GT SCH (09:00)
[2016-12-27] MEDS: FERROUS SULFATE - FOR SA ONLY 330 MG/7.5 ML UDC GT SCH (09:00)
[2016-12-27] MEDS: ASCORBIC ACID 500 MG TABLET GT SCH (09:00)
[2016-12-27] MEDS: SENNOSIDES 8.6 MG TABLET GT SCH (09:00)
[2016-12-27] MEDS: MECLIZINE HCL 12.5 MG TABLET GT SCH ×2 (09:00→21:18)
[2016-12-27] MEDS: ENOXAPARIN SODIUM 40 MG/0.4 ML DISP.SYRIN SQ SCH (09:00)
[2016-12-27] MEDS: ASPIRIN 81 MG TAB.CHEW GT SCH (09:00)
[2016-12-27] MEDS: ESOMEPRAZOLE MAGNESIUM 40 MG GT SCH ×2 (09:00→17:06)
[2016-12-27] MEDS: Z GUARD REMEDY 2 OZ OINT TP SCH ×2 (11:15→21:19)
[2016-12-27] MEDS: HYDROGEN PEROXIDE 480 ML BOTTLE TP SCH ×2 (11:15→21:19)
[2016-12-27 12:00] VITALS: BP 126/70
--- NOTE | 2016-12-27 16:15 | NUR ---
Pt was seen by Dr. Gonzalez for routine podiatry consult. He trimmed pt's toenails. Pt tolerated well.
[2016-12-27 18:15] VITALS: BP 120/74
[2016-12-27 20:06] VITALS: BP 120/74
[2016-12-27] MEDS: DULOXETINE HCL 30 MG CAPSULE.DR GT SCH (21:19)
[2016-12-28 00:10] VITALS: BP 116/64
[2016-12-28] MEDS: IPRATROPIUM NEB FS 0.5 MG/2.5 ML AMPUL.NEB NEB SCH ×4 (01:02→20:14)
[2016-12-28] MEDS: ALBUTEROL HALF STRENGTH 1.25 MG/3 ML VIAL.NEB NEB SCH ×4 (01:02→20:14)
[2016-12-28] MEDS: LEVOTHYROXINE SODIUM 25 MCG TABLET GT SCH (05:34)
[2016-12-28 06:20] VITALS: BP 112/59
[2016-12-28 08:31] VITALS: BP 117/65
[2016-12-28] MEDS: CYANOCOBALAMIN 500 MCG TABLET GT SCH (09:03)
[2016-12-28] MEDS: SENNOSIDES 8.6 MG TABLET GT SCH (09:03)
[2016-12-28] MEDS: POLYETHYLENE GLYCOL 3350 17 GM POWD.PACK GT SCH (09:03)
[2016-12-28] MEDS: FERROUS SULFATE - FOR SA ONLY 330 MG/7.5 ML UDC GT SCH (09:03)
[2016-12-28] MEDS: ASPIRIN 81 MG TAB.CHEW GT SCH (09:03)
[2016-12-28] MEDS: ZINC SULFATE 220 MG CAPSULE GT SCH (09:03)
[2016-12-28] MEDS: ASCORBIC ACID 500 MG TABLET GT SCH (09:03)
[2016-12-28] MEDS: ESOMEPRAZOLE MAGNESIUM 40 MG GT SCH ×2 (09:03→17:44)
[2016-12-28] MEDS: MECLIZINE HCL 12.5 MG TABLET GT SCH ×2 (09:03→21:41)
[2016-12-28] MEDS: Z GUARD REMEDY 2 OZ OINT TP SCH ×2 (09:04→21:42)
[2016-12-28] MEDS: HYDROGEN PEROXIDE 480 ML BOTTLE TP SCH ×2 (09:04→21:42)
[2016-12-28] MEDS: ENOXAPARIN SODIUM 40 MG/0.4 ML DISP.SYRIN SQ SCH (09:04)
[2016-12-28 14:17] VITALS: BP 118/75
[2016-12-28] MEDS: ONDANSETRON 4 MG TAB.RAPDIS GT PRN (17:00)
[2016-12-28 18:06] VITALS: BP 125/73
[2016-12-28 20:00] VITALS: BP 126/56
[2016-12-28] MEDS: DULOXETINE HCL 30 MG CAPSULE.DR GT SCH (21:42)
[2016-12-29 00:20] VITALS: BP 129/66
[2016-12-29] MEDS: ALBUTEROL HALF STRENGTH 1.25 MG/3 ML VIAL.NEB NEB SCH ×4 (00:53→19:56)
[2016-12-29] MEDS: IPRATROPIUM NEB FS 0.5 MG/2.5 ML AMPUL.NEB NEB SCH ×4 (00:53→19:56)
[2016-12-29] MEDS: FIBERSOURCE HN 1,000 ML BOTTLE GT PRN (04:00)
[2016-12-29 06:18] VITALS: BP 111/68
[2016-12-29] MEDS: LEVOTHYROXINE SODIUM 25 MCG TABLET GT SCH (06:18)
[2016-12-29 07:40] VITALS: BP 123/67
[2016-12-29] MEDS: ASCORBIC ACID 500 MG TABLET GT SCH (09:00)
[2016-12-29] MEDS: SENNOSIDES 8.6 MG TABLET GT SCH (09:00)
[2016-12-29] MEDS: FERROUS SULFATE - FOR SA ONLY 330 MG/7.5 ML UDC GT SCH (09:00)
[2016-12-29] MEDS: ENOXAPARIN SODIUM 40 MG/0.4 ML DISP.SYRIN SQ SCH (09:00)
[2016-12-29] MEDS: MECLIZINE HCL 12.5 MG TABLET GT SCH ×2 (09:00→21:50)
[2016-12-29] MEDS: POLYETHYLENE GLYCOL 3350 17 GM POWD.PACK GT SCH (09:00)
[2016-12-29] MEDS: ESOMEPRAZOLE MAGNESIUM 40 MG GT SCH ×2 (09:00→17:10)
[2016-12-29] MEDS: CYANOCOBALAMIN 500 MCG TABLET GT SCH (09:00)
[2016-12-29] MEDS: ASPIRIN 81 MG TAB.CHEW GT SCH (09:00)
[2016-12-29] MEDS: HYDROGEN PEROXIDE 480 ML BOTTLE TP SCH ×2 (09:00→21:50)
[2016-12-29] MEDS: Z GUARD REMEDY 2 OZ OINT TP SCH ×2 (09:00→21:50)
[2016-12-29] MEDS: ZINC SULFATE 220 MG CAPSULE GT SCH (09:00)
--- NOTE | 2016-12-29 15:37 | NUR ---
Seen and examined by Deneen Hankins NP no new order given.
--- NOTE | 2016-12-29 15:48 | NUR ---
Seen and examined by Deneen Hankins NP no new order given.
[2016-12-29 18:06] VITALS: BP 123/67
[2016-12-29 19:44] VITALS: BP 125/61
[2016-12-29] MEDS: DULOXETINE HCL 30 MG CAPSULE.DR GT SCH (21:50)
[2016-12-29] MEDS: ONDANSETRON 4 MG TAB.RAPDIS GT PRN (21:51)
[2016-12-30] MEDS: FIBERSOURCE HN 1,000 ML BOTTLE GT PRN ×2 (00:15→20:16)
[2016-12-30 00:35] VITALS: BP 127/72
[2016-12-30] MEDS: ALBUTEROL HALF STRENGTH 1.25 MG/3 ML VIAL.NEB NEB SCH ×4 (01:29→20:07)
[2016-12-30] MEDS: IPRATROPIUM NEB FS 0.5 MG/2.5 ML AMPUL.NEB NEB SCH ×4 (01:29→20:07)
[2016-12-30 06:05] VITALS: BP 132/81
[2016-12-30] MEDS: LEVOTHYROXINE SODIUM 25 MCG TABLET GT SCH (06:07)
[2016-12-30 07:43] VITALS: BP 141/81
[2016-12-30] MEDS: ASPIRIN 81 MG TAB.CHEW GT SCH (08:29)
[2016-12-30] MEDS: CYANOCOBALAMIN 500 MCG TABLET GT SCH (08:29)
[2016-12-30] MEDS: POLYETHYLENE GLYCOL 3350 17 GM POWD.PACK GT SCH (08:29)
[2016-12-30] MEDS: SENNOSIDES 8.6 MG TABLET GT SCH (08:29)
[2016-12-30] MEDS: ASCORBIC ACID 500 MG TABLET GT SCH (08:29)
[2016-12-30] MEDS: ESOMEPRAZOLE MAGNESIUM 40 MG GT SCH ×2 (08:29→16:17)
[2016-12-30] MEDS: FERROUS SULFATE - FOR SA ONLY 330 MG/7.5 ML UDC GT SCH (08:29)
[2016-12-30] MEDS: ZINC SULFATE 220 MG CAPSULE GT SCH (08:29)
[2016-12-30] MEDS: MECLIZINE HCL 12.5 MG TABLET GT SCH ×2 (08:29→21:30)
[2016-12-30] MEDS: ENOXAPARIN SODIUM 40 MG/0.4 ML DISP.SYRIN SQ SCH (08:30)
[2016-12-30] MEDS: Z GUARD REMEDY 2 OZ OINT TP SCH ×2 (08:39→21:30)
[2016-12-30] MEDS: HYDROGEN PEROXIDE 480 ML BOTTLE TP SCH ×2 (09:00→22:00)
--- NOTE | 2016-12-30 13:04 | NUR ---
Seen by Dr. Cox, psychiatrist, reviewed current psychotropic medication, dosing and episode of the manifested behavior. No new order given at this time.
[2016-12-30 13:33] VITALS: BP 141/81
[2016-12-30] MEDS: TRAMADOL HCL 50 MG TABLET GT PRN (15:25)
[2016-12-30 19:42] VITALS: BP 110/60
[2016-12-30] MEDS: DULOXETINE HCL 30 MG CAPSULE.DR GT SCH (22:08)
[2016-12-31 00:43] VITALS: BP 96/63
[2016-12-31] MEDS: ALBUTEROL HALF STRENGTH 1.25 MG/3 ML VIAL.NEB NEB SCH ×4 (01:56→19:29)
[2016-12-31] MEDS: IPRATROPIUM NEB FS 0.5 MG/2.5 ML AMPUL.NEB NEB SCH ×4 (01:56→19:29)
[2016-12-31] MEDS: LEVOTHYROXINE SODIUM 25 MCG TABLET GT SCH (05:49)
[2016-12-31 06:21] VITALS: BP 126/71
[2016-12-31 08:33] VITALS: BP 125/66
[2016-12-31] MEDS: MECLIZINE HCL 12.5 MG TABLET GT SCH ×2 (08:38→21:22)
[2016-12-31] MEDS: SENNOSIDES 8.6 MG TABLET GT SCH (08:38)
[2016-12-31] MEDS: ASPIRIN 81 MG TAB.CHEW GT SCH (08:38)
[2016-12-31] MEDS: FERROUS SULFATE - FOR SA ONLY 330 MG/7.5 ML UDC GT SCH (08:38)
[2016-12-31] MEDS: POLYETHYLENE GLYCOL 3350 17 GM POWD.PACK GT SCH (08:38)
[2016-12-31] MEDS: CYANOCOBALAMIN 500 MCG TABLET GT SCH (08:38)
[2016-12-31] MEDS: ESOMEPRAZOLE MAGNESIUM 40 MG GT SCH ×2 (08:38→17:39)
[2016-12-31] MEDS: ENOXAPARIN SODIUM 40 MG/0.4 ML DISP.SYRIN SQ SCH (08:39)
[2016-12-31] MEDS: ZINC SULFATE 220 MG CAPSULE GT SCH (08:39)
[2016-12-31] MEDS: ASCORBIC ACID 500 MG TABLET GT SCH (08:39)
[2016-12-31] MEDS: HYDROGEN PEROXIDE 480 ML BOTTLE TP SCH ×2 (09:00→21:22)
[2016-12-31] MEDS: Z GUARD REMEDY 2 OZ OINT TP SCH ×2 (09:00→21:22)
[2016-12-31 12:00] VITALS: BP_SYST 113; BP_SYST 128; BP_DIAS 74; BP_DIAS 77
[2016-12-31 18:18] VITALS: BP 122/68
[2016-12-31 20:12] VITALS: BP 125/65
[2016-12-31] MEDS: DULOXETINE HCL 30 MG CAPSULE.DR GT SCH (21:22)
[2017-01-01 00:07] VITALS: BP 127/63
[2017-01-01] MEDS: IPRATROPIUM NEB FS 0.5 MG/2.5 ML AMPUL.NEB NEB SCH ×4 (01:06→19:38)
[2017-01-01] MEDS: ALBUTEROL HALF STRENGTH 1.25 MG/3 ML VIAL.NEB NEB SCH ×4 (01:06→19:38)
[2017-01-01] MEDS: FIBERSOURCE HN 1,000 ML BOTTLE GT PRN (03:36)
[2017-01-01] MEDS: LEVOTHYROXINE SODIUM 25 MCG TABLET GT SCH (05:42)
[2017-01-01 06:29] VITALS: BP 102/64
[2017-01-01 07:48] VITALS: BP 116/65
[2017-01-01] MEDS: ASPIRIN 81 MG TAB.CHEW GT SCH (08:06)
[2017-01-01] MEDS: FERROUS SULFATE - FOR SA ONLY 330 MG/7.5 ML UDC GT SCH (08:06)
[2017-01-01] MEDS: POLYETHYLENE GLYCOL 3350 17 GM POWD.PACK GT SCH (08:06)
[2017-01-01] MEDS: ESOMEPRAZOLE MAGNESIUM 40 MG GT SCH ×2 (08:06→16:56)
[2017-01-01] MEDS: ZINC SULFATE 220 MG CAPSULE GT SCH (08:07)
[2017-01-01] MEDS: ASCORBIC ACID 500 MG TABLET GT SCH (08:07)
[2017-01-01] MEDS: SENNOSIDES 8.6 MG TABLET GT SCH (08:07)
[2017-01-01] MEDS: CYANOCOBALAMIN 500 MCG TABLET GT SCH (08:07)
[2017-01-01] MEDS: ENOXAPARIN SODIUM 40 MG/0.4 ML DISP.SYRIN SQ SCH (08:15)
[2017-01-01] MEDS: Z GUARD REMEDY 2 OZ OINT TP SCH ×2 (08:16→20:30)
[2017-01-01] MEDS: HYDROGEN PEROXIDE 480 ML BOTTLE TP SCH ×2 (08:16→20:30)
[2017-01-01] MEDS: MECLIZINE HCL 12.5 MG TABLET GT SCH ×2 (08:17→20:30)
[2017-01-01 14:36] VITALS: BP 116/65
[2017-01-01 18:24] VITALS: BP 118/70
[2017-01-01 20:11] VITALS: BP 123/72
[2017-01-01] MEDS: DULOXETINE HCL 30 MG CAPSULE.DR GT SCH (21:12)
[2017-01-02 00:35] VITALS: BP 115/68
[2017-01-02] MEDS: IPRATROPIUM NEB FS 0.5 MG/2.5 ML AMPUL.NEB NEB SCH ×4 (01:28→19:33)
[2017-01-02] MEDS: ALBUTEROL HALF STRENGTH 1.25 MG/3 ML VIAL.NEB NEB SCH ×4 (01:28→19:33)
[2017-01-02] MEDS: LEVOTHYROXINE SODIUM 25 MCG TABLET GT SCH (05:16)
[2017-01-02 06:04] VITALS: BP 105/63
[2017-01-02 07:23] LABS: BASOPHILS % (AUTO) 0.3 % (0.0-2.0); EOSINOPHILS # (AUTO) 0.2 /CMM (0.0-0.7); EOSINOPHILS % (AUTO) 2.4 % (0.0-6.0); HEMATOCRIT 34 % (33-45); HEMOGLOBIN 11.4 g/dL (11.5-14.8); LYMPHOCYTES # (AUTO) 1.5 /CMM (0.8-4.8); MEAN CORPUSCULAR HEMOGLOBIN 31 PG (26.0-33.0); MEAN CORPUSCULAR HGB CONC 33 g/dl (31.0-36.0); MEAN CORPUSCULAR VOLUME 94 fL (82-100); MONOCYTES # (AUTO) 0.7 /CMM (0.1-1.30); MONOCYTES % (AUTO) 8.4 % (2.0-12.0); NEUTROPHILS # (AUTO) 6.2 /CMM (1.8-8.9); NEUTROPHILS % (AUTO) 71.9 % (43.0-81.0); PLATELET COUNT (AUTO) 312 /CMM (150-450); RDW COEFFICIENT OF VARIATION 13.7 (11.5-15.0); RED BLOOD CELL COUNT(AUTO) 3.67 MIL/uL (4.0-5.2); WHITE BLOOD COUNT (AUTO) 8.6 K/uL (4.3-11.0)
[2017-01-02 07:31] LABS: CALCIUM, SERUM 8.8 mg/dL (8.5-10.1); CREATININE 0.4 mg/dL (0.6-1.3); MAGNESIUM 1.7 mg/dL (1.8-2.4); PHOSPHORUS 3.7 mg/dL (2.5-4.9); POTASSIUM 4.3 mmol/L (3.5-5.1)
[2017-01-02 07:32] VITALS: BP 120/65
[2017-01-02] MEDS: MECLIZINE HCL 12.5 MG TABLET GT SCH ×2 (09:00→20:51)
[2017-01-02] MEDS: ZINC SULFATE 220 MG CAPSULE GT SCH (09:21)
[2017-01-02] MEDS: ASPIRIN 81 MG TAB.CHEW GT SCH (09:21)
[2017-01-02] MEDS: ESOMEPRAZOLE MAGNESIUM 40 MG GT SCH ×2 (09:21→17:17)
[2017-01-02] MEDS: CYANOCOBALAMIN 500 MCG TABLET GT SCH (09:21)
[2017-01-02] MEDS: ASCORBIC ACID 500 MG TABLET GT SCH (09:21)
[2017-01-02] MEDS: SENNOSIDES 8.6 MG TABLET GT SCH (09:21)
[2017-01-02] MEDS: POLYETHYLENE GLYCOL 3350 17 GM POWD.PACK GT SCH (09:21)
[2017-01-02] MEDS: FERROUS SULFATE - FOR SA ONLY 330 MG/7.5 ML UDC GT SCH (09:21)
[2017-01-02] MEDS: ENOXAPARIN SODIUM 40 MG/0.4 ML DISP.SYRIN SQ SCH (09:22)
[2017-01-02] MEDS: HYDROGEN PEROXIDE 480 ML BOTTLE TP SCH ×2 (10:30→20:51)
[2017-01-02] MEDS: Z GUARD REMEDY 2 OZ OINT TP SCH ×2 (10:30→20:51)
[2017-01-02 18:13] VITALS: BP 126/75
--- NOTE | 2017-01-02 18:29 | NUR ---
Seen by AJ Hankins. Relayed lab results to her. No new order.
[2017-01-02 20:09] VITALS: BP 122/73
[2017-01-02] MEDS: DULOXETINE HCL 30 MG CAPSULE.DR GT SCH (21:06)
[2017-01-03 00:24] VITALS: BP 119/61
[2017-01-03] MEDS: IPRATROPIUM NEB FS 0.5 MG/2.5 ML AMPUL.NEB NEB SCH ×4 (01:24→20:15)
[2017-01-03] MEDS: ALBUTEROL HALF STRENGTH 1.25 MG/3 ML VIAL.NEB NEB SCH ×4 (01:24→20:15)
[2017-01-03] MEDS: LEVOTHYROXINE SODIUM 25 MCG TABLET GT SCH (05:13)
[2017-01-03 06:18] VITALS: BP 123/68
[2017-01-03 07:44] VITALS: BP 112/56
[2017-01-03] MEDS: ZINC SULFATE 220 MG CAPSULE GT SCH (09:43)
[2017-01-03] MEDS: MECLIZINE HCL 12.5 MG TABLET GT SCH (09:43)
[2017-01-03] MEDS: CYANOCOBALAMIN 500 MCG TABLET GT SCH (09:43)
[2017-01-03] MEDS: ASPIRIN 81 MG TAB.CHEW GT SCH (09:43)
[2017-01-03] MEDS: ESOMEPRAZOLE MAGNESIUM 40 MG GT SCH ×2 (09:43→16:51)
[2017-01-03] MEDS: FERROUS SULFATE - FOR SA ONLY 330 MG/7.5 ML UDC GT SCH (09:43)
[2017-01-03] MEDS: POLYETHYLENE GLYCOL 3350 17 GM POWD.PACK GT SCH (09:43)
[2017-01-03] MEDS: SENNOSIDES 8.6 MG TABLET GT SCH (09:43)
[2017-01-03] MEDS: ASCORBIC ACID 500 MG TABLET GT SCH (09:43)
[2017-01-03] MEDS: ENOXAPARIN SODIUM 40 MG/0.4 ML DISP.SYRIN SQ SCH (09:44)
[2017-01-03] MEDS: Z GUARD REMEDY 2 OZ OINT TP SCH ×2 (09:45→20:21)
[2017-01-03] MEDS: HYDROGEN PEROXIDE 480 ML BOTTLE TP SCH ×2 (09:45→20:21)
--- NOTE | 2017-01-03 10:00 | NUR ---
Seen by Dr John with no new order. Addendum: 01/03/17 at 1437 by ADAIR HOLMAN RN Dr John informed of pt episode of vomiting fluids after medication given.Abdomen soft and nondistended positive bowel sounds.Per no new order.Daughter made aware.
[2017-01-03 14:01] VITALS: BP 127/96
--- NOTE | 2017-01-03 16:25 | NUR ---
Order to DC Meclizine 12.5mg Q12 hrs.per pharmacy recommendation Dr John agreed order noted and carried out.Resident and daughter Cheli made aware.
[2017-01-03 18:47] VITALS: BP 113/87
[2017-01-03 20:53] VITALS: BP 109/71
[2017-01-03] MEDS: DULOXETINE HCL 30 MG CAPSULE.DR GT SCH (21:14)
[2017-01-04 00:05] VITALS: BP 122/89
[2017-01-04] MEDS: IPRATROPIUM NEB FS 0.5 MG/2.5 ML AMPUL.NEB NEB SCH ×4 (01:11→20:06)
[2017-01-04] MEDS: ALBUTEROL HALF STRENGTH 1.25 MG/3 ML VIAL.NEB NEB SCH ×4 (01:11→20:06)
[2017-01-04] MEDS: LEVOTHYROXINE SODIUM 25 MCG TABLET GT SCH (05:17)
[2017-01-04 06:04] VITALS: BP 115/78
[2017-01-04 07:56] VITALS: BP 113/61
[2017-01-04] MEDS: ASCORBIC ACID 500 MG TABLET GT SCH (08:30)
[2017-01-04] MEDS: CYANOCOBALAMIN 500 MCG TABLET GT SCH (08:30)
[2017-01-04] MEDS: POLYETHYLENE GLYCOL 3350 17 GM POWD.PACK GT SCH (08:30)
[2017-01-04] MEDS: ESOMEPRAZOLE MAGNESIUM 40 MG GT SCH ×2 (08:30→16:42)
[2017-01-04] MEDS: ZINC SULFATE 220 MG CAPSULE GT SCH (08:30)
[2017-01-04] MEDS: SENNOSIDES 8.6 MG TABLET GT SCH (08:30)
[2017-01-04] MEDS: FERROUS SULFATE - FOR SA ONLY 330 MG/7.5 ML UDC GT SCH (08:30)
[2017-01-04] MEDS: ASPIRIN 81 MG TAB.CHEW GT SCH (08:30)
[2017-01-04] MEDS: HYDROGEN PEROXIDE 480 ML BOTTLE TP SCH ×2 (08:37→21:41)
[2017-01-04] MEDS: Z GUARD REMEDY 2 OZ OINT TP SCH ×2 (08:37→21:41)
[2017-01-04] MEDS: ENOXAPARIN SODIUM 40 MG/0.4 ML DISP.SYRIN SQ SCH (08:37)
--- NOTE | 2017-01-04 09:16 | NUR ---
Seen and examined by Dr Charla Fontanez, dry box operator no new order given.
[2017-01-04] MEDS: FIBERSOURCE HN 1,000 ML BOTTLE GT PRN (11:03)
[2017-01-04 12:52] VITALS: BP 113/61
[2017-01-04 18:27] VITALS: BP 121/66
[2017-01-04] MEDS: DULOXETINE HCL 30 MG CAPSULE.DR GT SCH (21:41)
[2017-01-05 00:30] VITALS: BP 126/84
[2017-01-05] MEDS: FIBERSOURCE HN 1,000 ML BOTTLE GT PRN ×2 (00:39→18:08)
[2017-01-05] MEDS: ALBUTEROL HALF STRENGTH 1.25 MG/3 ML VIAL.NEB NEB SCH ×4 (02:15→20:13)
[2017-01-05] MEDS: IPRATROPIUM NEB FS 0.5 MG/2.5 ML AMPUL.NEB NEB SCH ×4 (02:15→20:13)
[2017-01-05] MEDS: LEVOTHYROXINE SODIUM 25 MCG TABLET GT SCH (06:17)
[2017-01-05 06:18] VITALS: BP 127/73
[2017-01-05 07:56] VITALS: BP 120/72
[2017-01-05] MEDS: FERROUS SULFATE - FOR SA ONLY 330 MG/7.5 ML UDC GT SCH (08:30)
[2017-01-05] MEDS: ESOMEPRAZOLE MAGNESIUM 40 MG GT SCH ×2 (08:30→17:00)
[2017-01-05] MEDS: POLYETHYLENE GLYCOL 3350 17 GM POWD.PACK GT SCH (08:30)
[2017-01-05] MEDS: ASPIRIN 81 MG TAB.CHEW GT SCH (08:30)
[2017-01-05] MEDS: Z GUARD REMEDY 2 OZ OINT TP SCH ×2 (08:31→21:28)
[2017-01-05] MEDS: ASCORBIC ACID 500 MG TABLET GT SCH (08:31)
[2017-01-05] MEDS: CYANOCOBALAMIN 500 MCG TABLET GT SCH (08:31)
[2017-01-05] MEDS: HYDROGEN PEROXIDE 480 ML BOTTLE TP SCH ×2 (08:31→21:28)
[2017-01-05] MEDS: SENNOSIDES 8.6 MG TABLET GT SCH (08:31)
[2017-01-05] MEDS: ZINC SULFATE 220 MG CAPSULE GT SCH (08:31)
[2017-01-05] MEDS: ENOXAPARIN SODIUM 40 MG/0.4 ML DISP.SYRIN SQ SCH (08:31)
[2017-01-05 12:58] VITALS: BP 120/72
--- NOTE | 2017-01-05 13:30 | NUR ---
Seen by Deneen Hankins NP with no new order.
[2017-01-05 18:25] VITALS: BP 122/78
[2017-01-05 20:27] VITALS: BP 109/68
[2017-01-05] MEDS: DULOXETINE HCL 30 MG CAPSULE.DR GT SCH (21:28)
[2017-01-06 00:21] VITALS: BP 126/76
[2017-01-06] MEDS: IPRATROPIUM NEB FS 0.5 MG/2.5 ML AMPUL.NEB NEB SCH ×4 (01:20→20:05)
[2017-01-06] MEDS: ALBUTEROL HALF STRENGTH 1.25 MG/3 ML VIAL.NEB NEB SCH ×4 (01:20→20:05)
[2017-01-06] MEDS: LEVOTHYROXINE SODIUM 25 MCG TABLET GT SCH (05:28)
[2017-01-06 06:35] VITALS: BP 133/75
[2017-01-06 07:44] VITALS: BP 120/75
[2017-01-06] MEDS: ASPIRIN 81 MG TAB.CHEW GT SCH (08:11)
[2017-01-06] MEDS: ASCORBIC ACID 500 MG TABLET GT SCH (08:12)
[2017-01-06] MEDS: POLYETHYLENE GLYCOL 3350 17 GM POWD.PACK GT SCH (08:12)
[2017-01-06] MEDS: ESOMEPRAZOLE MAGNESIUM 40 MG GT SCH ×2 (08:12→17:57)
[2017-01-06] MEDS: CYANOCOBALAMIN 500 MCG TABLET GT SCH (08:12)
[2017-01-06] MEDS: ZINC SULFATE 220 MG CAPSULE GT SCH (08:12)
[2017-01-06] MEDS: SENNOSIDES 8.6 MG TABLET GT SCH (08:12)
[2017-01-06] MEDS: FERROUS SULFATE - FOR SA ONLY 330 MG/7.5 ML UDC GT SCH (08:12)
[2017-01-06] MEDS: ENOXAPARIN SODIUM 40 MG/0.4 ML DISP.SYRIN SQ SCH (08:14)
[2017-01-06] MEDS: HYDROGEN PEROXIDE 480 ML BOTTLE TP SCH ×2 (08:23→21:45)
[2017-01-06] MEDS: FIBERSOURCE HN 1,000 ML BOTTLE GT PRN (12:52)
[2017-01-06 13:20] VITALS: BP 120/75
--- NOTE | 2017-01-06 14:15 | NUR ---
IDT meeting held. Daughter attended the meeting via telephone conference. She would like to see if Dr John would order another weaning trial again. Dr. John explained to daughter that patient can tolerate weaning but not alf. He ordered to put patient on cool aerosol for 2 hours starting Monday.
[2017-01-06 18:22] VITALS: BP 128/81
[2017-01-06 19:54] VITALS: BP 127/69
[2017-01-06] MEDS: DULOXETINE HCL 30 MG CAPSULE.DR GT SCH (21:45)
[2017-01-07 00:20] VITALS: BP 131/65
[2017-01-07] MEDS: IPRATROPIUM NEB FS 0.5 MG/2.5 ML AMPUL.NEB NEB SCH ×4 (02:20→19:22)
[2017-01-07] MEDS: ALBUTEROL HALF STRENGTH 1.25 MG/3 ML VIAL.NEB NEB SCH ×4 (02:21→19:22)
[2017-01-07] MEDS: FIBERSOURCE HN 1,000 ML BOTTLE GT PRN (04:02)
[2017-01-07 06:16] VITALS: BP 126/72
[2017-01-07] MEDS: LEVOTHYROXINE SODIUM 25 MCG TABLET GT SCH (06:16)
[2017-01-07] MEDS: ASCORBIC ACID 500 MG TABLET GT SCH (08:28)
[2017-01-07] MEDS: CYANOCOBALAMIN 500 MCG TABLET GT SCH (08:28)
[2017-01-07] MEDS: SENNOSIDES 8.6 MG TABLET GT SCH (08:28)
[2017-01-07] MEDS: ESOMEPRAZOLE MAGNESIUM 40 MG GT SCH ×2 (08:28→17:04)
[2017-01-07] MEDS: POLYETHYLENE GLYCOL 3350 17 GM POWD.PACK GT SCH (08:28)
[2017-01-07] MEDS: FERROUS SULFATE - FOR SA ONLY 330 MG/7.5 ML UDC GT SCH (08:28)
[2017-01-07] MEDS: ZINC SULFATE 220 MG CAPSULE GT SCH (08:28)
[2017-01-07] MEDS: ASPIRIN 81 MG TAB.CHEW GT SCH (08:28)
[2017-01-07] MEDS: ENOXAPARIN SODIUM 40 MG/0.4 ML DISP.SYRIN SQ SCH (08:29)
[2017-01-07] MEDS: HYDROGEN PEROXIDE 480 ML BOTTLE TP SCH ×2 (08:29→20:45)
[2017-01-07 09:50] VITALS: BP 105/67
[2017-01-07] MEDS: ONDANSETRON 4 MG TAB.RAPDIS GT PRN (11:51)
[2017-01-07 12:00] VITALS: BP 138/96
--- NOTE | 2017-01-07 16:00 | NUR ---
Left a message to Dr. Foreman that resident had episode of vomiting and feels very nauseated. Patient reported she feels week. BP 142/73, 68, 14, 100% T 97.4. No gastric residual and had BM x 1 yesterday. She was given Zofran PRN. Daughter visiting at this time assured her that will monitor patient's condition and notify MD if he would like any lab draws. Awaiting for MD to respond. Resident in no acute s/s of distress and discomfort. Remain awake, alert and responsive to verbal stimulation.
[2017-01-07 18:38] VITALS: BP 142/73
[2017-01-07 20:08] VITALS: BP 109/64
[2017-01-07] MEDS: DULOXETINE HCL 30 MG CAPSULE.DR GT SCH (21:28)
[2017-01-08] VITALS: BP 126/77
[2017-01-08] MEDS: IPRATROPIUM NEB FS 0.5 MG/2.5 ML AMPUL.NEB NEB SCH ×4 (01:12→19:40)
[2017-01-08] MEDS: ALBUTEROL HALF STRENGTH 1.25 MG/3 ML VIAL.NEB NEB SCH ×4 (01:12→19:40)
[2017-01-08] MEDS: FIBERSOURCE HN 1,000 ML BOTTLE GT PRN (01:57)
[2017-01-08] MEDS: LEVOTHYROXINE SODIUM 25 MCG TABLET GT SCH (05:50)
[2017-01-08 06:00] VITALS: BP 112/56
[2017-01-08 08:19] VITALS: BP 133/57
[2017-01-08] MEDS: HYDROGEN PEROXIDE 480 ML BOTTLE TP SCH ×2 (08:50→20:35)
[2017-01-08] MEDS: CYANOCOBALAMIN 500 MCG TABLET GT SCH (08:50)
[2017-01-08] MEDS: FERROUS SULFATE - FOR SA ONLY 330 MG/7.5 ML UDC GT SCH (08:50)
[2017-01-08] MEDS: ASPIRIN 81 MG TAB.CHEW GT SCH (08:50)
[2017-01-08] MEDS: POLYETHYLENE GLYCOL 3350 17 GM POWD.PACK GT SCH (08:50)
[2017-01-08] MEDS: ASCORBIC ACID 500 MG TABLET GT SCH (08:50)
[2017-01-08] MEDS: ZINC SULFATE 220 MG CAPSULE GT SCH (08:50)
[2017-01-08] MEDS: ENOXAPARIN SODIUM 40 MG/0.4 ML DISP.SYRIN SQ SCH (08:50)
[2017-01-08] MEDS: ESOMEPRAZOLE MAGNESIUM 40 MG GT SCH ×2 (08:50→16:22)
[2017-01-08] MEDS: SENNOSIDES 8.6 MG TABLET GT SCH (08:50)
[2017-01-08 12:00] VITALS: BP 118/57
--- NOTE | 2017-01-08 17:22 | NUR ---
Resident no vomiting episode this shift. Resident stable no s/s of discomfort. Notified Dr. Foreman regarding family's request for lab works, he stated that he will check her tomorrow. Endorsed.
[2017-01-08 18:07] VITALS: BP 121/62
[2017-01-08 20:09] VITALS: BP 132/78
[2017-01-08] MEDS: DULOXETINE HCL 30 MG CAPSULE.DR GT SCH (21:10)
[2017-01-09 00:01] VITALS: BP 114/60
[2017-01-09] MEDS: ALBUTEROL HALF STRENGTH 1.25 MG/3 ML VIAL.NEB NEB SCH ×4 (02:23→19:23)
[2017-01-09] MEDS: IPRATROPIUM NEB FS 0.5 MG/2.5 ML AMPUL.NEB NEB SCH ×4 (02:23→19:23)
[2017-01-09] MEDS: LEVOTHYROXINE SODIUM 25 MCG TABLET GT SCH (05:08)
[2017-01-09 06:18] VITALS: BP 119/63
[2017-01-09 08:22] VITALS: BP 127/76
[2017-01-09] MEDS: ZINC SULFATE 220 MG CAPSULE GT SCH (08:32)
[2017-01-09] MEDS: FERROUS SULFATE - FOR SA ONLY 330 MG/7.5 ML UDC GT SCH (08:32)
[2017-01-09] MEDS: ESOMEPRAZOLE MAGNESIUM 40 MG GT SCH ×2 (08:32→17:03)
[2017-01-09] MEDS: CYANOCOBALAMIN 500 MCG TABLET GT SCH (08:32)
[2017-01-09] MEDS: ASPIRIN 81 MG TAB.CHEW GT SCH (08:32)
[2017-01-09] MEDS: SENNOSIDES 8.6 MG TABLET GT SCH (08:32)
[2017-01-09] MEDS: POLYETHYLENE GLYCOL 3350 17 GM POWD.PACK GT SCH (08:32)
[2017-01-09] MEDS: ASCORBIC ACID 500 MG TABLET GT SCH (08:32)
[2017-01-09] MEDS: ENOXAPARIN SODIUM 40 MG/0.4 ML DISP.SYRIN SQ SCH (08:33)
[2017-01-09] MEDS: HYDROGEN PEROXIDE 480 ML BOTTLE TP SCH ×2 (09:00→21:06)
--- NOTE | 2017-01-09 10:11 | NUR ---
Pt placed onto cool aerosol (for 2 hours) and placed back to mechanical vent per MD order. Pt tolerated CA well. Addendum: 01/09/17 at 1013 by MAI PALOMO RT Amended: Links added.
--- NOTE | 2017-01-09 10:25 | NUR ---
Pt tolerated 2 hours of weaning on cool aerosol.
--- NOTE | 2017-01-09 10:30 | NUR ---
Seen by Dr. Fontanez. Notified her that pt's Meclizine was DC'd per pharmacist's recommendation but pt had vomiting episodes. Received order to resume Meclizine 12.5 mg GT q 12 for nausea/vomiting.
[2017-01-09 14:41] VITALS: BP 124/61
[2017-01-09 18:54] VITALS: BP 131/63
[2017-01-09 19:57] VITALS: BP 126/76
[2017-01-09] MEDS: DULOXETINE HCL 30 MG CAPSULE.DR GT SCH (21:06)
[2017-01-09] MEDS: MECLIZINE HCL 12.5 MG TABLET GT SCH (21:06)
[2017-01-10 00:44] VITALS: BP 128/65
[2017-01-10] MEDS: IPRATROPIUM NEB FS 0.5 MG/2.5 ML AMPUL.NEB NEB SCH ×4 (01:21→19:05)
[2017-01-10] MEDS: ALBUTEROL HALF STRENGTH 1.25 MG/3 ML VIAL.NEB NEB SCH ×4 (01:22→19:05)
[2017-01-10] MEDS: ONDANSETRON 4 MG TAB.RAPDIS GT PRN (01:24)
--- NOTE | 2017-01-10 01:24 | NUR ---
RN NOTES Noted pt flushed and appears to be uncomfortable. B/P 120/72, HR 90, RR 20, T 97.5. Noted pt pointing to towel and noted her gagging. Placed towel near mouth and pt vomited x1, small amount of yellowish emesis. No gastric residual present. Remained at bedside for 15min and pt appears to feel relieved of discomfort. Zofran 4mg via gt given as ordered. Will re-assess pt and continue to monitor closely.
[2017-01-10] MEDS: LEVOTHYROXINE SODIUM 25 MCG TABLET GT SCH (05:23)
[2017-01-10 06:23] VITALS: BP 122/58
[2017-01-10 07:45] VITALS: BP 139/59
[2017-01-10] MEDS: POLYETHYLENE GLYCOL 3350 17 GM POWD.PACK GT SCH (09:29)
[2017-01-10] MEDS: ASCORBIC ACID 500 MG TABLET GT SCH (09:29)
[2017-01-10] MEDS: ZINC SULFATE 220 MG CAPSULE GT SCH (09:29)
[2017-01-10] MEDS: SENNOSIDES 8.6 MG TABLET GT SCH (09:29)
[2017-01-10] MEDS: ESOMEPRAZOLE MAGNESIUM 40 MG GT SCH ×2 (09:29→17:44)
[2017-01-10] MEDS: MECLIZINE HCL 12.5 MG TABLET GT SCH ×2 (09:29→20:09)
[2017-01-10] MEDS: CYANOCOBALAMIN 500 MCG TABLET GT SCH (09:29)
[2017-01-10] MEDS: ASPIRIN 81 MG TAB.CHEW GT SCH (09:29)
[2017-01-10] MEDS: FERROUS SULFATE - FOR SA ONLY 330 MG/7.5 ML UDC GT SCH (09:29)
[2017-01-10] MEDS: ENOXAPARIN SODIUM 40 MG/0.4 ML DISP.SYRIN SQ SCH (09:30)
[2017-01-10] MEDS: HYDROGEN PEROXIDE 480 ML BOTTLE TP SCH ×2 (09:30→20:09)
[2017-01-10 13:13] VITALS: BP 119/65
[2017-01-10 18:15] VITALS: BP 123/64
[2017-01-10 19:44] VITALS: BP 117/64
[2017-01-10] MEDS: DULOXETINE HCL 30 MG CAPSULE.DR GT SCH (21:08)
[2017-01-11 00:34] VITALS: BP 118/72
[2017-01-11] MEDS: ALBUTEROL HALF STRENGTH 1.25 MG/3 ML VIAL.NEB NEB SCH ×4 (00:42→19:43)
[2017-01-11] MEDS: IPRATROPIUM NEB FS 0.5 MG/2.5 ML AMPUL.NEB NEB SCH ×4 (00:42→19:43)
[2017-01-11] MEDS: LEVOTHYROXINE SODIUM 25 MCG TABLET GT SCH (05:08)
[2017-01-11 06:21] VITALS: BP 113/68
[2017-01-11 08:00] VITALS: BP 131/66
[2017-01-11] MEDS: ASPIRIN 81 MG TAB.CHEW GT SCH (09:00)
[2017-01-11] MEDS: FERROUS SULFATE - FOR SA ONLY 330 MG/7.5 ML UDC GT SCH (09:00)
[2017-01-11] MEDS: POLYETHYLENE GLYCOL 3350 17 GM POWD.PACK GT SCH (09:01)
[2017-01-11] MEDS: CYANOCOBALAMIN 500 MCG TABLET GT SCH (09:01)
[2017-01-11] MEDS: SENNOSIDES 8.6 MG TABLET GT SCH (09:01)
[2017-01-11] MEDS: ASCORBIC ACID 500 MG TABLET GT SCH (09:01)
[2017-01-11] MEDS: ESOMEPRAZOLE MAGNESIUM 40 MG GT SCH ×2 (09:01→16:41)
[2017-01-11] MEDS: ZINC SULFATE 220 MG CAPSULE GT SCH (09:02)
[2017-01-11] MEDS: ENOXAPARIN SODIUM 40 MG/0.4 ML DISP.SYRIN SQ SCH (09:03)
[2017-01-11] MEDS: HYDROGEN PEROXIDE 480 ML BOTTLE TP SCH ×2 (09:10→21:04)
[2017-01-11] MEDS: MECLIZINE HCL 12.5 MG TABLET GT SCH ×2 (09:11→21:04)
[2017-01-11 14:18] VITALS: BP 131/66
--- NOTE | 2017-01-11 17:30 | NUR ---
Seen by Deneen Hankins NP with no new order.
[2017-01-11 19:33] VITALS: BP 119/71
[2017-01-11] MEDS: DULOXETINE HCL 30 MG CAPSULE.DR GT SCH (21:04)
[2017-01-12 00:18] VITALS: BP 113/67
[2017-01-12] MEDS: IPRATROPIUM NEB FS 0.5 MG/2.5 ML AMPUL.NEB NEB SCH ×4 (00:53→19:15)
[2017-01-12] MEDS: ALBUTEROL HALF STRENGTH 1.25 MG/3 ML VIAL.NEB NEB SCH ×4 (00:53→19:15)
[2017-01-12] MEDS: FIBERSOURCE HN 1,000 ML BOTTLE GT PRN ×2 (01:23→20:34)
[2017-01-12] MEDS: LEVOTHYROXINE SODIUM 25 MCG TABLET GT SCH (05:24)
[2017-01-12] MEDS: CLONIDINE HCL 0.1 MG TABLET GT PRN ×2 (05:38→23:29)
[2017-01-12 06:25] VITALS: BP 136/71
[2017-01-12 08:00] VITALS: BP 132/79
[2017-01-12] MEDS: ASPIRIN 81 MG TAB.CHEW GT SCH (09:16)
[2017-01-12] MEDS: MECLIZINE HCL 12.5 MG TABLET GT SCH ×2 (09:16→20:33)
[2017-01-12] MEDS: FERROUS SULFATE - FOR SA ONLY 330 MG/7.5 ML UDC GT SCH (09:16)
[2017-01-12] MEDS: POLYETHYLENE GLYCOL 3350 17 GM POWD.PACK GT SCH (09:16)
[2017-01-12] MEDS: ESOMEPRAZOLE MAGNESIUM 40 MG GT SCH ×2 (09:16→17:52)
[2017-01-12] MEDS: SENNOSIDES 8.6 MG TABLET GT SCH (09:17)
[2017-01-12] MEDS: ZINC SULFATE 220 MG CAPSULE GT SCH (09:17)
[2017-01-12] MEDS: CYANOCOBALAMIN 500 MCG TABLET GT SCH (09:17)
[2017-01-12] MEDS: ASCORBIC ACID 500 MG TABLET GT SCH (09:17)
[2017-01-12] MEDS: ENOXAPARIN SODIUM 40 MG/0.4 ML DISP.SYRIN SQ SCH (09:18)
[2017-01-12] MEDS: HYDROGEN PEROXIDE 480 ML BOTTLE TP SCH ×2 (09:18→20:33)
[2017-01-12] MEDS: ONDANSETRON 4 MG TAB.RAPDIS GT PRN ×2 (15:36→17:50)
[2017-01-12 15:43] VITALS: BP 132/79
--- NOTE | 2017-01-12 16:00 | NUR ---
Order clarified for Tylenol liquid Dr Alvaro monreal noted and carried out.
--- NOTE | 2017-01-12 16:30 | NUR ---
Pt's daughter concerned about pt's nausea. She was requesting to have office support specialist review pt's formula or feeding rate. Left message for office support specialist. Addendum: 01/12/17 at 1835 by YAMILETH JESUS RN Pt was given Zofran as ordered PRN.
[2017-01-12 18:23] VITALS: BP_SYST 128; BP_SYST 132; BP_DIAS 73; BP_DIAS 79
[2017-01-12 20:25] VITALS: BP 137/84
[2017-01-12] MEDS: Z GUARD REMEDY 4 OZ OINT TP SCH (20:34)
[2017-01-12] MEDS: DULOXETINE HCL 30 MG CAPSULE.DR GT SCH (21:10)
[2017-01-13 00:31] VITALS: BP 130/70
[2017-01-13] MEDS: ALBUTEROL HALF STRENGTH 1.25 MG/3 ML VIAL.NEB NEB SCH ×4 (01:23→19:46)
[2017-01-13] MEDS: IPRATROPIUM NEB FS 0.5 MG/2.5 ML AMPUL.NEB NEB SCH ×4 (01:23→19:46)
[2017-01-13] MEDS: LEVOTHYROXINE SODIUM 25 MCG TABLET GT SCH (05:03)
[2017-01-13 06:04] VITALS: BP 124/58
[2017-01-13 08:29] VITALS: BP 126/70
[2017-01-13] MEDS: POLYETHYLENE GLYCOL 3350 17 GM POWD.PACK GT SCH (08:31)
[2017-01-13] MEDS: FERROUS SULFATE - FOR SA ONLY 330 MG/7.5 ML UDC GT SCH (08:31)
[2017-01-13] MEDS: MECLIZINE HCL 12.5 MG TABLET GT SCH ×2 (08:31→20:42)
[2017-01-13] MEDS: ASPIRIN 81 MG TAB.CHEW GT SCH (08:31)
[2017-01-13] MEDS: SENNOSIDES 8.6 MG TABLET GT SCH (08:32)
[2017-01-13] MEDS: ESOMEPRAZOLE MAGNESIUM 40 MG GT SCH ×2 (08:32→16:32)
[2017-01-13] MEDS: CYANOCOBALAMIN 500 MCG TABLET GT SCH (08:32)
[2017-01-13] MEDS: ZINC SULFATE 220 MG CAPSULE GT SCH (08:33)
[2017-01-13] MEDS: Z GUARD REMEDY 4 OZ OINT TP SCH ×2 (08:33→20:42)
[2017-01-13] MEDS: ASCORBIC ACID 500 MG TABLET GT SCH (08:33)
[2017-01-13] MEDS: HYDROGEN PEROXIDE 480 ML BOTTLE TP SCH ×2 (08:33→20:42)
[2017-01-13] MEDS: ENOXAPARIN SODIUM 40 MG/0.4 ML DISP.SYRIN SQ SCH (08:33)
[2017-01-13 13:11] VITALS: BP 126/70
[2017-01-13] MEDS: FIBERSOURCE HN 1,000 ML BOTTLE GT PRN (16:32)
[2017-01-13] MEDS: ONDANSETRON 4 MG TAB.RAPDIS GT PRN (16:40)
[2017-01-13 18:40] VITALS: BP 132/88
[2017-01-13 20:29] VITALS: BP 114/71
[2017-01-13] MEDS: DULOXETINE HCL 30 MG CAPSULE.DR GT SCH (22:00)
[2017-01-14 00:01] VITALS: BP 110/71
[2017-01-14] MEDS: ALBUTEROL HALF STRENGTH 1.25 MG/3 ML VIAL.NEB NEB SCH ×4 (02:03→19:35)
[2017-01-14] MEDS: IPRATROPIUM NEB FS 0.5 MG/2.5 ML AMPUL.NEB NEB SCH ×4 (02:03→19:35)
[2017-01-14] MEDS: LEVOTHYROXINE SODIUM 25 MCG TABLET GT SCH (05:39)
[2017-01-14 06:49] VITALS: BP 108/66
[2017-01-14 07:39] VITALS: BP 120/72
[2017-01-14] MEDS: CYANOCOBALAMIN 500 MCG TABLET GT SCH (09:20)
[2017-01-14] MEDS: SENNOSIDES 8.6 MG TABLET GT SCH (09:20)
[2017-01-14] MEDS: ESOMEPRAZOLE MAGNESIUM 40 MG GT SCH ×2 (09:20→17:12)
[2017-01-14] MEDS: ASPIRIN 81 MG TAB.CHEW GT SCH (09:20)
[2017-01-14] MEDS: ZINC SULFATE 220 MG CAPSULE GT SCH (09:20)
[2017-01-14] MEDS: ENOXAPARIN SODIUM 40 MG/0.4 ML DISP.SYRIN SQ SCH (09:20)
[2017-01-14] MEDS: ASCORBIC ACID 500 MG TABLET GT SCH (09:20)
[2017-01-14] MEDS: FERROUS SULFATE - FOR SA ONLY 330 MG/7.5 ML UDC GT SCH (09:20)
[2017-01-14] MEDS: POLYETHYLENE GLYCOL 3350 17 GM POWD.PACK GT SCH (09:20)
[2017-01-14] MEDS: MECLIZINE HCL 12.5 MG TABLET GT SCH ×2 (09:20→20:38)
[2017-01-14] MEDS: Z GUARD REMEDY 4 OZ OINT TP SCH ×2 (09:21→20:38)
[2017-01-14] MEDS: HYDROGEN PEROXIDE 480 ML BOTTLE TP SCH ×2 (09:21→20:38)
--- NOTE | 2017-01-14 11:10 | NUR ---
Patient with complaints of nausea. GT residual was 200cc. GT feeding turned off. Dr. Fontanez was notified, order obtained for Reglan 10mg via GT PRN nausea/ vomiting. Order noted and carried out.
--- NOTE | 2017-01-14 11:28 | NUR ---
Kineseologist reviewed current feeding order. She stated that she will reevaluate patient on Monday after she receives Reglan, she does not think her vomiting episode is caused by her tube feeding formula. Endorsed.
[2017-01-14 12:00] VITALS: BP 127/69
[2017-01-14] MEDS ORDERED: METOCLOPRAMIDE HCL 10 MG/10 ML UDC GT PRN (12:00)
[2017-01-14] MEDS: ONDANSETRON 4 MG TAB.RAPDIS GT PRN (12:09)
--- NOTE | 2017-01-14 15:55 | NUR ---
Received call from [facility] pharmacy ([facility]), that there is drug interaction with the use of Cymbalta and Reglan. According to [facility] he will not send medication unless it is OK with MD. Placed a call to Dr. Fontanez's office to clarify the order if she is OK to give Reglan while patient is on Cymbalta. Awaiting for MD to call back. Endorsed.
--- NOTE | 2017-01-14 17:47 | NUR ---
Received a call from Dr. Fontanez notifying her of pharmacy concern of drug interaction between Reglan and Cymbalta. Reglan order discontinued.
[2017-01-14 18:30] VITALS: BP 111/75
[2017-01-14 20:00] VITALS: BP 129/71
[2017-01-14] MEDS: DULOXETINE HCL 30 MG CAPSULE.DR GT SCH (21:38)
[2017-01-15] VITALS: BP 102/73
[2017-01-15] MEDS: CLONIDINE HCL 0.1 MG TABLET GT PRN (00:16)
[2017-01-15] MEDS: IPRATROPIUM NEB FS 0.5 MG/2.5 ML AMPUL.NEB NEB SCH ×4 (01:40→19:25)
[2017-01-15] MEDS: ALBUTEROL HALF STRENGTH 1.25 MG/3 ML VIAL.NEB NEB SCH ×4 (01:40→19:25)
[2017-01-15] MEDS: FIBERSOURCE HN 1,000 ML BOTTLE GT PRN ×2 (05:15→20:48)
[2017-01-15] MEDS: LEVOTHYROXINE SODIUM 25 MCG TABLET GT SCH (05:15)
[2017-01-15 06:00] VITALS: BP 125/68
[2017-01-15 08:15] VITALS: BP 110/56
[2017-01-15] MEDS: ASCORBIC ACID 500 MG TABLET GT SCH (09:00)
[2017-01-15] MEDS: CYANOCOBALAMIN 500 MCG TABLET GT SCH (09:00)
[2017-01-15] MEDS: Z GUARD REMEDY 4 OZ OINT TP SCH ×2 (09:00→21:06)
[2017-01-15] MEDS: MECLIZINE HCL 12.5 MG TABLET GT SCH ×2 (09:00→21:06)
[2017-01-15] MEDS: ENOXAPARIN SODIUM 40 MG/0.4 ML DISP.SYRIN SQ SCH (09:00)
[2017-01-15] MEDS: ASPIRIN 81 MG TAB.CHEW GT SCH (09:00)
[2017-01-15] MEDS: ESOMEPRAZOLE MAGNESIUM 40 MG GT SCH ×2 (09:00→16:08)
[2017-01-15] MEDS: SENNOSIDES 8.6 MG TABLET GT SCH (09:00)
[2017-01-15] MEDS: ZINC SULFATE 220 MG CAPSULE GT SCH (09:00)
[2017-01-15] MEDS: HYDROGEN PEROXIDE 480 ML BOTTLE TP SCH ×2 (09:00→21:06)
[2017-01-15] MEDS: FERROUS SULFATE - FOR SA ONLY 330 MG/7.5 ML UDC GT SCH (09:00)
[2017-01-15] MEDS: POLYETHYLENE GLYCOL 3350 17 GM POWD.PACK GT SCH (09:00)
[2017-01-15 18:37] VITALS: BP 110/60
[2017-01-15 19:37] VITALS: BP 123/71
[2017-01-15] MEDS: DULOXETINE HCL 30 MG CAPSULE.DR GT SCH (21:06)
[2017-01-16] VITALS: BP 112/65
[2017-01-16] MEDS: IPRATROPIUM NEB FS 0.5 MG/2.5 ML AMPUL.NEB NEB SCH ×4 (02:05→20:17)
[2017-01-16] MEDS: ALBUTEROL HALF STRENGTH 1.25 MG/3 ML VIAL.NEB NEB SCH ×4 (02:05→20:17)
[2017-01-16] MEDS: LEVOTHYROXINE SODIUM 25 MCG TABLET GT SCH (05:23)
[2017-01-16 06:09] VITALS: BP 114/72
[2017-01-16 07:49] VITALS: BP 146/74
[2017-01-16] MEDS: MECLIZINE HCL 12.5 MG TABLET GT SCH ×2 (08:57→20:12)
[2017-01-16] MEDS: CYANOCOBALAMIN 500 MCG TABLET GT SCH (08:57)
[2017-01-16] MEDS: ZINC SULFATE 220 MG CAPSULE GT SCH (08:57)
[2017-01-16] MEDS: SENNOSIDES 8.6 MG TABLET GT SCH (08:57)
[2017-01-16] MEDS: ASCORBIC ACID 500 MG TABLET GT SCH (08:57)
[2017-01-16] MEDS: FERROUS SULFATE - FOR SA ONLY 330 MG/7.5 ML UDC GT SCH (08:57)
[2017-01-16] MEDS: ASPIRIN 81 MG TAB.CHEW GT SCH (08:57)
[2017-01-16] MEDS: POLYETHYLENE GLYCOL 3350 17 GM POWD.PACK GT SCH (08:57)
[2017-01-16] MEDS: ESOMEPRAZOLE MAGNESIUM 40 MG GT SCH ×2 (08:57→16:35)
[2017-01-16] MEDS: ENOXAPARIN SODIUM 40 MG/0.4 ML DISP.SYRIN SQ SCH (08:58)
[2017-01-16] MEDS: HYDROGEN PEROXIDE 480 ML BOTTLE TP SCH ×2 (11:35→20:12)
[2017-01-16] MEDS: Z GUARD REMEDY 4 OZ OINT TP SCH ×2 (11:35→20:12)
--- NOTE | 2017-01-16 12:01 | NUR ---
Dr. Fontanez said she spoke with Dr. Luque to see pt for nausea/vomiting. No episode of vomiting yesterday and today.
--- NOTE | 2017-01-16 14:40 | NUR ---
Dr. Luque came. Notified him that pt's daughter is concerned that pt has been feeling nauseous, pt has a routine order of Meclizine and PRN Zofran. Dr. Luque said he remembers seeing the pt in the past and to just give Zofran PRN. No new order.
[2017-01-16 15:09] VITALS: BP 123/79
[2017-01-16] MEDS: FIBERSOURCE HN 1,000 ML BOTTLE GT PRN (17:28)
[2017-01-16 18:08] VITALS: BP 122/60
[2017-01-16 19:43] VITALS: BP 126/73
[2017-01-16] MEDS: DULOXETINE HCL 30 MG CAPSULE.DR GT SCH (21:22)
[2017-01-17 00:45] VITALS: BP 120/60
[2017-01-17] MEDS: ALBUTEROL HALF STRENGTH 1.25 MG/3 ML VIAL.NEB NEB SCH ×4 (01:17→20:14)
[2017-01-17] MEDS: IPRATROPIUM NEB FS 0.5 MG/2.5 ML AMPUL.NEB NEB SCH ×4 (01:17→20:14)
[2017-01-17] MEDS: LEVOTHYROXINE SODIUM 25 MCG TABLET GT SCH (05:24)
[2017-01-17 06:22] VITALS: BP 126/62
[2017-01-17 07:52] VITALS: BP 139/60
[2017-01-17] MEDS: ESOMEPRAZOLE MAGNESIUM 40 MG GT SCH ×2 (09:00→16:19)
[2017-01-17] MEDS: ASPIRIN 81 MG TAB.CHEW GT SCH (09:21)
[2017-01-17] MEDS: MECLIZINE HCL 12.5 MG TABLET GT SCH ×2 (09:21→20:10)
[2017-01-17] MEDS: POLYETHYLENE GLYCOL 3350 17 GM POWD.PACK GT SCH (09:21)
[2017-01-17] MEDS: FERROUS SULFATE - FOR SA ONLY 330 MG/7.5 ML UDC GT SCH (09:21)
[2017-01-17] MEDS: ENOXAPARIN SODIUM 40 MG/0.4 ML DISP.SYRIN SQ SCH (09:22)
[2017-01-17] MEDS: ZINC SULFATE 220 MG CAPSULE GT SCH (09:22)
[2017-01-17] MEDS: SENNOSIDES 8.6 MG TABLET GT SCH (09:22)
[2017-01-17] MEDS: CYANOCOBALAMIN 500 MCG TABLET GT SCH (09:22)
[2017-01-17] MEDS: ASCORBIC ACID 500 MG TABLET GT SCH (09:22)
[2017-01-17] MEDS: HYDROGEN PEROXIDE 480 ML BOTTLE TP SCH ×2 (09:23→20:10)
[2017-01-17] MEDS: Z GUARD REMEDY 4 OZ OINT TP SCH ×2 (09:23→20:10)
--- NOTE | 2017-01-17 09:30 | NUR ---
Seen by Dr John with no new order.
--- NOTE | 2017-01-17 15:00 | NUR ---
Received new order from Dr. John patient be placed on cool aerosol from 0800am-1600pm total of 8hrs and placed back on ventilator at 1600-0800am orders noted and carried out. RT notified. Left voice messgae to Cheli Laurent daughter.
[2017-01-17] MEDS: TRAMADOL HCL 50 MG TABLET GT PRN (15:28)
[2017-01-17 15:36] VITALS: BP 122/65
[2017-01-17 18:05] VITALS: BP 119/70
[2017-01-17 20:05] VITALS: BP 110/71
[2017-01-17] MEDS: DULOXETINE HCL 30 MG CAPSULE.DR GT SCH (21:38)
[2017-01-18] VITALS: BP 120/62
[2017-01-18] MEDS: IPRATROPIUM NEB FS 0.5 MG/2.5 ML AMPUL.NEB NEB SCH ×4 (01:52→20:13)
[2017-01-18] MEDS: ALBUTEROL HALF STRENGTH 1.25 MG/3 ML VIAL.NEB NEB SCH ×4 (01:52→20:13)
[2017-01-18] MEDS: LEVOTHYROXINE SODIUM 25 MCG TABLET GT SCH (05:29)
[2017-01-18] MEDS: FIBERSOURCE HN 1,000 ML BOTTLE GT PRN ×2 (05:51→23:25)
[2017-01-18 06:07] VITALS: BP 128/60
[2017-01-18 07:53] VITALS: BP 133/80
[2017-01-18] MEDS: ASPIRIN 81 MG TAB.CHEW GT SCH (08:30)
[2017-01-18] MEDS: FERROUS SULFATE - FOR SA ONLY 330 MG/7.5 ML UDC GT SCH (08:30)
[2017-01-18] MEDS: MECLIZINE HCL 12.5 MG TABLET GT SCH ×2 (08:30→20:22)
[2017-01-18] MEDS: CYANOCOBALAMIN 500 MCG TABLET GT SCH (08:31)
[2017-01-18] MEDS: ASCORBIC ACID 500 MG TABLET GT SCH (08:31)
[2017-01-18] MEDS: HYDROGEN PEROXIDE 480 ML BOTTLE TP SCH ×2 (08:31→20:22)
[2017-01-18] MEDS: ZINC SULFATE 220 MG CAPSULE GT SCH (08:31)
[2017-01-18] MEDS: POLYETHYLENE GLYCOL 3350 17 GM POWD.PACK GT SCH (08:31)
[2017-01-18] MEDS: ENOXAPARIN SODIUM 40 MG/0.4 ML DISP.SYRIN SQ SCH (08:31)
[2017-01-18] MEDS: SENNOSIDES 8.6 MG TABLET GT SCH (08:31)
[2017-01-18] MEDS: Z GUARD REMEDY 4 OZ OINT TP SCH ×2 (08:31→20:22)
[2017-01-18] MEDS: ESOMEPRAZOLE MAGNESIUM 40 MG GT SCH ×2 (08:31→16:29)
[2017-01-18 15:56] VITALS: BP 133/80
[2017-01-18 18:53] VITALS: BP 121/63
[2017-01-18 19:36] VITALS: BP 116/64
[2017-01-18] MEDS: DULOXETINE HCL 30 MG CAPSULE.DR GT SCH (21:43)
[2017-01-19 00:27] VITALS: BP 134/60
[2017-01-19] MEDS: ALBUTEROL HALF STRENGTH 1.25 MG/3 ML VIAL.NEB NEB SCH ×4 (01:24→20:07)
[2017-01-19] MEDS: IPRATROPIUM NEB FS 0.5 MG/2.5 ML AMPUL.NEB NEB SCH ×4 (01:24→20:07)
[2017-01-19] MEDS: LEVOTHYROXINE SODIUM 25 MCG TABLET GT SCH (05:22)
[2017-01-19 06:07] VITALS: BP 124/66
[2017-01-19 08:00] VITALS: BP 126/71
[2017-01-19] MEDS: FERROUS SULFATE - FOR SA ONLY 330 MG/7.5 ML UDC GT SCH (08:43)
[2017-01-19] MEDS: ASPIRIN 81 MG TAB.CHEW GT SCH (08:43)
[2017-01-19] MEDS: MECLIZINE HCL 12.5 MG TABLET GT SCH ×2 (08:43→21:58)
[2017-01-19] MEDS: ZINC SULFATE 220 MG CAPSULE GT SCH (08:44)
[2017-01-19] MEDS: ENOXAPARIN SODIUM 40 MG/0.4 ML DISP.SYRIN SQ SCH (08:44)
[2017-01-19] MEDS: ASCORBIC ACID 500 MG TABLET GT SCH (08:44)
[2017-01-19] MEDS: CYANOCOBALAMIN 500 MCG TABLET GT SCH (08:44)
[2017-01-19] MEDS: ESOMEPRAZOLE MAGNESIUM 40 MG GT SCH ×2 (08:44→16:31)
[2017-01-19] MEDS: SENNOSIDES 8.6 MG TABLET GT SCH (08:44)
[2017-01-19] MEDS: POLYETHYLENE GLYCOL 3350 17 GM POWD.PACK GT SCH (08:44)
[2017-01-19] MEDS: HYDROGEN PEROXIDE 480 ML BOTTLE TP SCH ×2 (09:00→21:58)
[2017-01-19] MEDS: Z GUARD REMEDY 4 OZ OINT TP SCH ×2 (09:00→21:58)
[2017-01-19 12:10] VITALS: BP 125/70
--- NOTE | 2017-01-19 17:51 | NUR ---
RT END OF THE SHIFT REPORT: PT. 76 Y OLD FEMALE REMAIN TRACHED SHILEY # 6 ON VENT WITH NOTED AC SETTING, ALARMS ARE SET AND FUNCTIONAL, NO DISTRESS NOTED T/O SHIFT, CUFF PRESSURE CHECKED( MONTHLY TRACH CHANGE DONE ) PLACED ON COOL AEROSOL 35% [id number] ELENI. WELL AND OLACED BACK TO VENT THX,S GIVEN INLINE AND ELENI. WELL NO A/R NOTED. EQUAL CHEST RISE NOTED AGUIRRE'X FOR MINIMAL YELLOW SECRETIONS, B/S BILATERALLY RALES. NO CHANGES HME CHANGED AMBU BAG REMAIN AT THE BEDSIDE. REPORT WILL BE GIVEN TO PM SHIFT. Addendum: 01/19/17 at 1752 by HI LA RT Amended: Links added.
--- NOTE | 2017-01-19 17:52 | NUR ---
Seen by SADIE Tang. She said she will order a new right hand splint for the pt, she will research on what she can do to straighten out the pt's right ring finger.
[2017-01-19 18:08] VITALS: BP 107/56
[2017-01-19 20:25] VITALS: BP 129/76
[2017-01-19] MEDS: DULOXETINE HCL 30 MG CAPSULE.DR GT SCH (21:58)
[2017-01-20] VITALS: BP 125/65
[2017-01-20] MEDS: ALBUTEROL HALF STRENGTH 1.25 MG/3 ML VIAL.NEB NEB SCH ×4 (00:52→19:40)
[2017-01-20] MEDS: IPRATROPIUM NEB FS 0.5 MG/2.5 ML AMPUL.NEB NEB SCH ×4 (00:52→19:40)
[2017-01-20] MEDS: LEVOTHYROXINE SODIUM 25 MCG TABLET GT SCH (05:22)
[2017-01-20] MEDS: FIBERSOURCE HN 1,000 ML BOTTLE GT PRN (05:23)
[2017-01-20] MEDS: CLONIDINE HCL 0.1 MG TABLET GT PRN ×2 (05:23→23:57)
[2017-01-20 06:00] VITALS: BP 111/66
[2017-01-20 07:46] VITALS: BP 125/76
[2017-01-20] MEDS: ASPIRIN 81 MG TAB.CHEW GT SCH (08:04)
[2017-01-20] MEDS: ESOMEPRAZOLE MAGNESIUM 40 MG GT SCH ×2 (08:04→16:50)
[2017-01-20] MEDS: POLYETHYLENE GLYCOL 3350 17 GM POWD.PACK GT SCH (08:04)
[2017-01-20] MEDS: MECLIZINE HCL 12.5 MG TABLET GT SCH ×2 (08:04→20:29)
[2017-01-20] MEDS: CYANOCOBALAMIN 500 MCG TABLET GT SCH (08:04)
[2017-01-20] MEDS: FERROUS SULFATE - FOR SA ONLY 330 MG/7.5 ML UDC GT SCH (08:04)
[2017-01-20] MEDS: ZINC SULFATE 220 MG CAPSULE GT SCH (08:04)
[2017-01-20] MEDS: SENNOSIDES 8.6 MG TABLET GT SCH (08:04)
[2017-01-20] MEDS: ASCORBIC ACID 500 MG TABLET GT SCH (08:04)
[2017-01-20] MEDS: ENOXAPARIN SODIUM 40 MG/0.4 ML DISP.SYRIN SQ SCH (08:05)
[2017-01-20] MEDS: Z GUARD REMEDY 4 OZ OINT TP SCH ×2 (08:05→20:30)
[2017-01-20] MEDS: HYDROGEN PEROXIDE 480 ML BOTTLE TP SCH ×2 (08:05→20:29)
--- NOTE | 2017-01-20 09:00 | NUR ---
PT WAS PLACED ON COOL AEROSOL 40% 02 AT 0900. NO RESP DISTRESS NOTED. WILL CONTINUE TO MONITOR
--- NOTE | 2017-01-20 12:39 | NUR ---
Notified Dr. John of resident's episode of desaturation. While DOUGHNUT BATTER MIXER was doing trach care, she noted that resident is desaturating. O2 sat went down to as low as 60-65% on cool aerosol, Immediately bagged resident with 100% 02 and pulse ox reading climbed up to 100%. Resident remain awake and responsive to stimulation although her color is pale during this episode. RT at bedside to stabilized her condition and placed her back on ventilator. Dr. John gave an order to DC cool aerosol trials. Spoke with Cheli, daughter notified of failed weaning trial she verbalized understanding.
--- NOTE | 2017-01-20 13:00 | NUR ---
UPON ARRIVAL TO PT'S ROOM, RN WAS VENTILATING PT VIA BAG MASK 100% 02. RESPIRATORY DISTRESS WAS NOTED, AND PT'S COLOR WAS HERNANDEZ. AFTER BAGGING FOR A MINUTE, PT'S COLOR AND O2 SAT INCREASE. PT WAS PLACED BACK ON VENT PER DR SALOMON REQUEST
--- NOTE | 2017-01-20 13:01 | NUR ---
RT NOTES: Around 12:30 pm patient start desating on cool aerosol 35% 8L/min. Patient was bagging on 100% by RT Jhonathan and RT Cesilia. Patient SpO2 back to normal 100% and per MD order patient is back on mechanical ventilator AC RR 13, Vt 450, FiO2 40%, PEEP5 and pt. SpO2 is 100%.
[2017-01-20 15:50] VITALS: BP 125/76
[2017-01-20 18:03] VITALS: BP_SYST 125; BP_SYST 136; BP_DIAS 76; BP_DIAS 78
--- NOTE | 2017-01-20 18:03 | NUR ---
RT Notes: patient on vent and settings as ordered. Vent plugged into red outlet and alarms set and audible. Ambu bag and spare trach at the bed side. Patient's breath sounds equal. Trach midline. Tx given as ordered. Patient tolerated breathing Tx. very well. No adverse reactions noticed.
[2017-01-20 19:36] VITALS: BP 115/72
[2017-01-20] MEDS: DULOXETINE HCL 30 MG CAPSULE.DR GT SCH (21:16)
[2017-01-21 00:26] VITALS: BP 128/58
[2017-01-21] MEDS: IPRATROPIUM NEB FS 0.5 MG/2.5 ML AMPUL.NEB NEB SCH ×4 (01:26→19:29)
[2017-01-21] MEDS: ALBUTEROL HALF STRENGTH 1.25 MG/3 ML VIAL.NEB NEB SCH ×4 (01:26→19:29)
[2017-01-21] MEDS: FIBERSOURCE HN 1,000 ML BOTTLE GT PRN ×2 (01:43→23:17)
[2017-01-21] MEDS: LEVOTHYROXINE SODIUM 25 MCG TABLET GT SCH (05:30)
[2017-01-21 06:11] VITALS: BP 110/62
[2017-01-21 07:33] VITALS: BP 113/68
[2017-01-21] MEDS: FERROUS SULFATE - FOR SA ONLY 330 MG/7.5 ML UDC GT SCH (09:03)
[2017-01-21] MEDS: ASCORBIC ACID 500 MG TABLET GT SCH (09:03)
[2017-01-21] MEDS: ZINC SULFATE 220 MG CAPSULE GT SCH (09:03)
[2017-01-21] MEDS: POLYETHYLENE GLYCOL 3350 17 GM POWD.PACK GT SCH (09:03)
[2017-01-21] MEDS: CYANOCOBALAMIN 500 MCG TABLET GT SCH (09:03)
[2017-01-21] MEDS: SENNOSIDES 8.6 MG TABLET GT SCH (09:03)
[2017-01-21] MEDS: MECLIZINE HCL 12.5 MG TABLET GT SCH ×2 (09:03→20:34)
[2017-01-21] MEDS: ASPIRIN 81 MG TAB.CHEW GT SCH (09:03)
[2017-01-21] MEDS: ESOMEPRAZOLE MAGNESIUM 40 MG GT SCH ×2 (09:03→17:09)
[2017-01-21] MEDS: Z GUARD REMEDY 4 OZ OINT TP SCH ×2 (09:04→20:34)
[2017-01-21] MEDS: ENOXAPARIN SODIUM 40 MG/0.4 ML DISP.SYRIN SQ SCH (09:04)
[2017-01-21] MEDS: HYDROGEN PEROXIDE 480 ML BOTTLE TP SCH ×2 (09:04→20:34)
--- NOTE | 2017-01-21 11:00 | NUR ---
RT Note. Patient transported to bathroom. Breath sounds equal. SpO2 98%.
[2017-01-21 12:00] VITALS: BP 122/70
--- NOTE | 2017-01-21 13:11 | NUR ---
RT Patient received trach mechanical vent. Trach midline and breath sounds equal. Ambu bag and spare trach at the bed side. Tx given as ordered and tolerated very well. No adverse reactions. Vent alarms set and audible.
[2017-01-21 18:29] VITALS: BP 109/58
[2017-01-21 19:45] VITALS: BP 115/76
[2017-01-21] MEDS: DULOXETINE HCL 30 MG CAPSULE.DR GT SCH (21:20)
[2017-01-21] MEDS: CLONIDINE HCL 0.1 MG TABLET GT PRN (23:16)
[2017-01-22 00:03] VITALS: BP 108/58
[2017-01-22] MEDS: IPRATROPIUM NEB FS 0.5 MG/2.5 ML AMPUL.NEB NEB SCH ×4 (01:32→19:19)
[2017-01-22] MEDS: ALBUTEROL HALF STRENGTH 1.25 MG/3 ML VIAL.NEB NEB SCH ×4 (01:32→19:19)
[2017-01-22] MEDS: LEVOTHYROXINE SODIUM 25 MCG TABLET GT SCH (05:27)
[2017-01-22 06:11] VITALS: BP 109/66
[2017-01-22] MEDS: ASPIRIN 81 MG TAB.CHEW GT SCH (08:07)
[2017-01-22] MEDS: MECLIZINE HCL 12.5 MG TABLET GT SCH ×2 (08:07→20:38)
[2017-01-22] MEDS: ASCORBIC ACID 500 MG TABLET GT SCH (08:07)
[2017-01-22] MEDS: POLYETHYLENE GLYCOL 3350 17 GM POWD.PACK GT SCH (08:07)
[2017-01-22] MEDS: ZINC SULFATE 220 MG CAPSULE GT SCH (08:07)
[2017-01-22] MEDS: CYANOCOBALAMIN 500 MCG TABLET GT SCH (08:07)
[2017-01-22] MEDS: SENNOSIDES 8.6 MG TABLET GT SCH (08:07)
[2017-01-22] MEDS: ESOMEPRAZOLE MAGNESIUM 40 MG GT SCH ×2 (08:07→16:16)
[2017-01-22] MEDS: FERROUS SULFATE - FOR SA ONLY 330 MG/7.5 ML UDC GT SCH (08:07)
[2017-01-22] MEDS: ENOXAPARIN SODIUM 40 MG/0.4 ML DISP.SYRIN SQ SCH (08:10)
[2017-01-22 08:20] VITALS: BP 135/75
[2017-01-22] MEDS: Z GUARD REMEDY 4 OZ OINT TP SCH ×2 (09:00→20:38)
[2017-01-22] MEDS: HYDROGEN PEROXIDE 480 ML BOTTLE TP SCH ×2 (09:00→20:38)
--- NOTE | 2017-01-22 11:30 | NUR ---
RT RECEIVED PT TRACHED ON [facility] VENT WITH SETTINGS PER MD ORDER. GENERAL HARDWARE SALESPERSON DONE. BILAT RHONCHI BREATH SOUNDS ON AUSCULTATION. VENT PLUGGED INTO RED OUTLET. TRACH SECURED AND AIRWAY PATENT. SUCTIONED SMALL AMOUNTS OF THICK, WHITE/YELLOW SECRETIONS. ALARMS ON AND AUDIBLE. TX'S GIVEN ORDERED. NO ADVERSE EFFECTS OBSERVED. SPARE TRACH AND AMBU BAG AT BEDSIDE. NO SOB NOTED AT THIS TIME. WILL CONTINUE TO MONITOR THE PATIENT FOR ANY CHANGES. Addendum: 01/22/17 at 1743 by FLORA SHANNON RT Amended: Links added.
[2017-01-22 15:07] VITALS: BP 135/75
[2017-01-22 19:42] VITALS: BP 102/67
[2017-01-22] MEDS: FIBERSOURCE HN 1,000 ML BOTTLE GT PRN (20:38)
[2017-01-22] MEDS: DULOXETINE HCL 30 MG CAPSULE.DR GT SCH (22:00)
[2017-01-23] VITALS: BP 109/61
[2017-01-23] MEDS: IPRATROPIUM NEB FS 0.5 MG/2.5 ML AMPUL.NEB NEB SCH ×4 (01:05→19:44)
[2017-01-23] MEDS: ALBUTEROL HALF STRENGTH 1.25 MG/3 ML VIAL.NEB NEB SCH ×4 (01:06→19:44)
[2017-01-23] MEDS: LEVOTHYROXINE SODIUM 25 MCG TABLET GT SCH (05:50)
[2017-01-23 05:57] VITALS: BP 127/70
[2017-01-23 06:00] VITALS: BP 109/61
[2017-01-23 07:45] VITALS: BP 102/62
[2017-01-23] MEDS: FERROUS SULFATE - FOR SA ONLY 330 MG/7.5 ML UDC GT SCH (09:39)
[2017-01-23] MEDS: MECLIZINE HCL 12.5 MG TABLET GT SCH ×2 (09:39→20:08)
[2017-01-23] MEDS: ASPIRIN 81 MG TAB.CHEW GT SCH (09:39)
[2017-01-23] MEDS: POLYETHYLENE GLYCOL 3350 17 GM POWD.PACK GT SCH (09:39)
[2017-01-23] MEDS: ESOMEPRAZOLE MAGNESIUM 40 MG GT SCH ×2 (09:39→17:54)
[2017-01-23] MEDS: SENNOSIDES 8.6 MG TABLET GT SCH (09:40)
[2017-01-23] MEDS: ASCORBIC ACID 500 MG TABLET GT SCH (09:40)
[2017-01-23] MEDS: ZINC SULFATE 220 MG CAPSULE GT SCH (09:40)
[2017-01-23] MEDS: CYANOCOBALAMIN 500 MCG TABLET GT SCH (09:40)
[2017-01-23] MEDS: ENOXAPARIN SODIUM 40 MG/0.4 ML DISP.SYRIN SQ SCH (09:42)
[2017-01-23] MEDS: HYDROGEN PEROXIDE 480 ML BOTTLE TP SCH ×2 (09:43→20:08)
[2017-01-23] MEDS: Z GUARD REMEDY 4 OZ OINT TP SCH ×2 (09:43→20:08)
--- NOTE | 2017-01-23 12:00 | NUR ---
Asked Dr. John if he wanted to try placing pt on cool aerosol again for weaning trial. Dr. John said no.
--- NOTE | 2017-01-23 14:33 | NUR ---
Was seen by Dr. Flor CHIN for annual checkup. Recommended dental cleaning if patient will tolerate procedure.
[2017-01-23] MEDS: FIBERSOURCE HN 1,000 ML BOTTLE GT PRN (18:25)
[2017-01-23 18:44] VITALS: BP 102/62
[2017-01-23 19:53] VITALS: BP 110/60
[2017-01-23] MEDS: DULOXETINE HCL 30 MG CAPSULE.DR GT SCH (21:58)
[2017-01-24 00:18] VITALS: BP 122/60
[2017-01-24] MEDS: IPRATROPIUM NEB FS 0.5 MG/2.5 ML AMPUL.NEB NEB SCH ×4 (02:24→19:30)
[2017-01-24] MEDS: ALBUTEROL HALF STRENGTH 1.25 MG/3 ML VIAL.NEB NEB SCH ×4 (02:25→19:30)
[2017-01-24] MEDS: LEVOTHYROXINE SODIUM 25 MCG TABLET GT SCH (05:56)
[2017-01-24 06:20] VITALS: BP 120/60
[2017-01-24 07:45] VITALS: BP 126/72
[2017-01-24] MEDS: MECLIZINE HCL 12.5 MG TABLET GT SCH ×2 (09:00→20:17)
[2017-01-24] MEDS: SENNOSIDES 8.6 MG TABLET GT SCH (09:00)
[2017-01-24] MEDS: ESOMEPRAZOLE MAGNESIUM 40 MG GT SCH ×2 (09:00→16:06)
[2017-01-24] MEDS: POLYETHYLENE GLYCOL 3350 17 GM POWD.PACK GT SCH (09:00)
[2017-01-24] MEDS: FERROUS SULFATE - FOR SA ONLY 330 MG/7.5 ML UDC GT SCH (09:00)
[2017-01-24] MEDS: HYDROGEN PEROXIDE 480 ML BOTTLE TP SCH ×2 (09:00→20:18)
[2017-01-24] MEDS: CYANOCOBALAMIN 500 MCG TABLET GT SCH (09:00)
[2017-01-24] MEDS: ZINC SULFATE 220 MG CAPSULE GT SCH (09:00)
[2017-01-24] MEDS: Z GUARD REMEDY 4 OZ OINT TP SCH ×2 (09:00→20:18)
[2017-01-24] MEDS: ENOXAPARIN SODIUM 40 MG/0.4 ML DISP.SYRIN SQ SCH (09:00)
[2017-01-24] MEDS: ASPIRIN 81 MG TAB.CHEW GT SCH (09:00)
[2017-01-24] MEDS: ASCORBIC ACID 500 MG TABLET GT SCH (09:00)
[2017-01-24 12:00] VITALS: BP 116/63
[2017-01-24] MEDS: NEOMY SULF/BACITRAC ZN/POLY 15 GM TUBE TP SCH ×2 (12:39→20:18)
[2017-01-24] MEDS: FIBERSOURCE HN 1,000 ML BOTTLE GT PRN (14:45)
--- NOTE | 2017-01-24 15:07 | NUR ---
Daughter declined dental cleaning.
[2017-01-24 18:06] VITALS: BP 125/60
--- NOTE | 2017-01-24 18:34 | NUR ---
RT END OF THE SHIFT REPORT: PT. 76 Y OLD FEMALE REMAIN TRACHED ON VENT WITH NOTED SETTING, ALARMS ARE SET AND FUNCTIONAL, NO DISTRESS NOTED T/O SHIFT, VENT PLUGGED INTO RED OUTLET THX,S GIVEN INLINE AND ELENI. WELL NO A/R NOTED. EQUAL CHEST RISE NOTED AGUIRRE'X FOR MINIMAL YELLOW SECRETIONS, B/S BILATERALLY RALES. NO CHANGES HME CHANGED AMBU BAG REMAIN AT THE BEDSIDE. Addendum: 01/24/17 at 1834 by HI LA RT Amended: Links added.
[2017-01-24 20:07] VITALS: BP 122/65
[2017-01-24] MEDS: DULOXETINE HCL 30 MG CAPSULE.DR GT SCH (21:24)
[2017-01-25 00:18] VITALS: BP 124/60
[2017-01-25] MEDS: IPRATROPIUM NEB FS 0.5 MG/2.5 ML AMPUL.NEB NEB SCH ×4 (01:30→20:17)
[2017-01-25] MEDS: ALBUTEROL HALF STRENGTH 1.25 MG/3 ML VIAL.NEB NEB SCH ×4 (01:30→20:17)
[2017-01-25] MEDS: LEVOTHYROXINE SODIUM 25 MCG TABLET GT SCH (05:54)
[2017-01-25 06:24] VITALS: BP 128/58
[2017-01-25] MEDS: FIBERSOURCE HN 1,000 ML BOTTLE GT PRN (06:50)
[2017-01-25 07:37] VITALS: BP 127/79
[2017-01-25] MEDS: Z GUARD REMEDY 4 OZ OINT TP SCH ×2 (09:00→20:29)
[2017-01-25] MEDS: NEOMY SULF/BACITRAC ZN/POLY 15 GM TUBE TP SCH ×2 (09:00→20:28)
[2017-01-25] MEDS: ASPIRIN 81 MG TAB.CHEW GT SCH (09:44)
[2017-01-25] MEDS: MECLIZINE HCL 12.5 MG TABLET GT SCH ×2 (09:44→20:28)
[2017-01-25] MEDS: CYANOCOBALAMIN 500 MCG TABLET GT SCH (09:45)
[2017-01-25] MEDS: ESOMEPRAZOLE MAGNESIUM 40 MG GT SCH ×2 (09:45→16:07)
[2017-01-25] MEDS: HYDROGEN PEROXIDE 480 ML BOTTLE TP SCH ×2 (09:45→20:28)
[2017-01-25] MEDS: POLYETHYLENE GLYCOL 3350 17 GM POWD.PACK GT SCH (09:45)
[2017-01-25] MEDS: SENNOSIDES 8.6 MG TABLET GT SCH (09:45)
[2017-01-25] MEDS: ENOXAPARIN SODIUM 40 MG/0.4 ML DISP.SYRIN SQ SCH (09:45)
[2017-01-25] MEDS: ZINC SULFATE 220 MG CAPSULE GT SCH (09:45)
[2017-01-25] MEDS: FERROUS SULFATE - FOR SA ONLY 330 MG/7.5 ML UDC GT SCH (09:45)
[2017-01-25] MEDS: ASCORBIC ACID 500 MG TABLET GT SCH (09:45)
[2017-01-25 12:00] VITALS: BP 132/60
[2017-01-25] MEDS: ACETAMINOPHEN 650 MG/20 ML UDC- FOR SA PATIENTS ONLY GT PRN (16:17)
[2017-01-25 19:21] VITALS: BP 144/59
[2017-01-25 19:57] VITALS: BP 128/82
[2017-01-25] MEDS: DULOXETINE HCL 30 MG CAPSULE.DR GT SCH (21:48)
[2017-01-26 00:29] VITALS: BP 120/60
[2017-01-26] MEDS: FIBERSOURCE HN 1,000 ML BOTTLE GT PRN (01:23)
[2017-01-26] MEDS: IPRATROPIUM NEB FS 0.5 MG/2.5 ML AMPUL.NEB NEB SCH ×4 (02:15→20:09)
[2017-01-26] MEDS: ALBUTEROL HALF STRENGTH 1.25 MG/3 ML VIAL.NEB NEB SCH ×4 (02:15→20:09)
[2017-01-26] MEDS: LEVOTHYROXINE SODIUM 25 MCG TABLET GT SCH (05:13)
[2017-01-26 06:11] VITALS: BP 128/60
[2017-01-26 08:13] VITALS: BP 118/76
[2017-01-26] MEDS: FERROUS SULFATE - FOR SA ONLY 330 MG/7.5 ML UDC GT SCH (09:36)
[2017-01-26] MEDS: ESOMEPRAZOLE MAGNESIUM 40 MG GT SCH ×2 (09:36→16:50)
[2017-01-26] MEDS: ASCORBIC ACID 500 MG TABLET GT SCH (09:36)
[2017-01-26] MEDS: POLYETHYLENE GLYCOL 3350 17 GM POWD.PACK GT SCH (09:36)
[2017-01-26] MEDS: MECLIZINE HCL 12.5 MG TABLET GT SCH ×2 (09:36→20:27)
[2017-01-26] MEDS: ZINC SULFATE 220 MG CAPSULE GT SCH (09:36)
[2017-01-26] MEDS: SENNOSIDES 8.6 MG TABLET GT SCH (09:36)
[2017-01-26] MEDS: CYANOCOBALAMIN 500 MCG TABLET GT SCH (09:36)
[2017-01-26] MEDS: ASPIRIN 81 MG TAB.CHEW GT SCH (09:36)
[2017-01-26] MEDS: NEOMY SULF/BACITRAC ZN/POLY 15 GM TUBE TP SCH ×2 (09:37→20:27)
[2017-01-26] MEDS: ENOXAPARIN SODIUM 40 MG/0.4 ML DISP.SYRIN SQ SCH (09:37)
[2017-01-26] MEDS: HYDROGEN PEROXIDE 480 ML BOTTLE TP SCH ×2 (09:37→20:27)
[2017-01-26] MEDS: Z GUARD REMEDY 4 OZ OINT TP SCH ×2 (09:37→20:27)
[2017-01-26] MEDS: ONDANSETRON 4 MG TAB.RAPDIS GT PRN (11:53)
[2017-01-26 12:00] VITALS: BP 115/75
[2017-01-26 18:46] VITALS: BP 119/78
[2017-01-26] MEDS: DULOXETINE HCL 30 MG CAPSULE.DR GT SCH (21:44)
[2017-01-27] VITALS: BP 109/63
[2017-01-27] MEDS: IPRATROPIUM NEB FS 0.5 MG/2.5 ML AMPUL.NEB NEB SCH ×4 (02:12→19:51)
[2017-01-27] MEDS: ALBUTEROL HALF STRENGTH 1.25 MG/3 ML VIAL.NEB NEB SCH ×4 (02:13→19:51)
[2017-01-27] MEDS: LEVOTHYROXINE SODIUM 25 MCG TABLET GT SCH (05:27)
[2017-01-27 06:00] VITALS: BP 106/57
[2017-01-27 08:03] VITALS: BP 126/62
[2017-01-27] MEDS: FERROUS SULFATE - FOR SA ONLY 330 MG/7.5 ML UDC GT SCH (09:00)
[2017-01-27] MEDS: ZINC SULFATE 220 MG CAPSULE GT SCH (09:00)
[2017-01-27] MEDS: ASCORBIC ACID 500 MG TABLET GT SCH (09:00)
[2017-01-27] MEDS: MECLIZINE HCL 12.5 MG TABLET GT SCH ×2 (09:00→21:10)
[2017-01-27] MEDS: NEOMY SULF/BACITRAC ZN/POLY 15 GM TUBE TP SCH ×2 (09:00→21:10)
[2017-01-27] MEDS: ENOXAPARIN SODIUM 40 MG/0.4 ML DISP.SYRIN SQ SCH (09:00)
[2017-01-27] MEDS: Z GUARD REMEDY 4 OZ OINT TP SCH ×2 (09:00→21:10)
[2017-01-27] MEDS: SENNOSIDES 8.6 MG TABLET GT SCH (09:00)
[2017-01-27] MEDS: HYDROGEN PEROXIDE 480 ML BOTTLE TP SCH ×2 (09:00→21:10)
[2017-01-27] MEDS: ASPIRIN 81 MG TAB.CHEW GT SCH (09:00)
[2017-01-27] MEDS: ESOMEPRAZOLE MAGNESIUM 40 MG GT SCH ×2 (09:00→17:02)
[2017-01-27] MEDS: POLYETHYLENE GLYCOL 3350 17 GM POWD.PACK GT SCH (09:00)
[2017-01-27] MEDS: CYANOCOBALAMIN 500 MCG TABLET GT SCH (09:00)
[2017-01-27 11:36] LABS: CALCIUM, SERUM 8.8 mg/dL (8.5-10.1); CREATININE 0.4 mg/dL (0.6-1.3); PHOSPHORUS 4.3 mg/dL (2.5-4.9); POTASSIUM 4.4 mmol/L (3.5-5.1)
[2017-01-27 11:44] LABS: BASOPHILS % (AUTO) 0.2 % (0.0-2.0); EOSINOPHILS # (AUTO) 0.2 /CMM (0.0-0.7); EOSINOPHILS % (AUTO) 2.2 % (0.0-6.0); HEMATOCRIT 35 % (33-45); HEMOGLOBIN 11.6 g/dL (11.5-14.8); LYMPHOCYTES # (AUTO) 1.3 /CMM (0.8-4.8); LYMPHOCYTES % (AUTO) 17.2 % (20.0-44.0); MEAN CORPUSCULAR HEMOGLOBIN 31 PG (26.0-33.0); MEAN CORPUSCULAR HGB CONC 33 g/dl (31.0-36.0); MEAN CORPUSCULAR VOLUME 93 fL (82-100); MONOCYTES # (AUTO) 0.7 /CMM (0.1-1.30); MONOCYTES % (AUTO) 8.5 % (2.0-12.0); NEUTROPHILS # (AUTO) 5.6 /CMM (1.8-8.9); NEUTROPHILS % (AUTO) 71.9 % (43.0-81.0); PLATELET COUNT (AUTO) 347 /CMM (150-450); RDW COEFFICIENT OF VARIATION 13.9 (11.5-15.0); RED BLOOD CELL COUNT(AUTO) 3.73 MIL/uL (4.0-5.2); WHITE BLOOD COUNT (AUTO) 7.8 K/uL (4.3-11.0)
[2017-01-27 12:00] VITALS: BP 116/72
[2017-01-27] MEDS: FIBERSOURCE HN 1,000 ML BOTTLE GT PRN (13:19)
[2017-01-27 18:43] VITALS: BP 100/54
[2017-01-27 19:48] VITALS: BP 102/56
[2017-01-27] MEDS: DULOXETINE HCL 30 MG CAPSULE.DR GT SCH (21:10)
[2017-01-28 00:18] VITALS: BP 132/74
[2017-01-28] MEDS: ALBUTEROL HALF STRENGTH 1.25 MG/3 ML VIAL.NEB NEB SCH ×4 (00:34→19:32)
[2017-01-28] MEDS: IPRATROPIUM NEB FS 0.5 MG/2.5 ML AMPUL.NEB NEB SCH ×4 (00:34→19:32)
[2017-01-28] MEDS: FIBERSOURCE HN 1,000 ML BOTTLE GT PRN (04:31)
[2017-01-28] MEDS: LEVOTHYROXINE SODIUM 25 MCG TABLET GT SCH (05:28)
[2017-01-28 06:04] VITALS: BP 136/75
[2017-01-28 08:00] VITALS: BP 110/65
[2017-01-28] MEDS: ASPIRIN 81 MG TAB.CHEW GT SCH (09:00)
[2017-01-28] MEDS: MECLIZINE HCL 12.5 MG TABLET GT SCH ×2 (09:00→21:09)
[2017-01-28] MEDS: ASCORBIC ACID 500 MG TABLET GT SCH (09:00)
[2017-01-28] MEDS: SENNOSIDES 8.6 MG TABLET GT SCH (09:00)
[2017-01-28] MEDS: ZINC SULFATE 220 MG CAPSULE GT SCH (09:00)
[2017-01-28] MEDS: HYDROGEN PEROXIDE 480 ML BOTTLE TP SCH ×2 (09:00→21:09)
[2017-01-28] MEDS: POLYETHYLENE GLYCOL 3350 17 GM POWD.PACK GT SCH (09:00)
[2017-01-28] MEDS: Z GUARD REMEDY 4 OZ OINT TP SCH ×2 (09:00→21:10)
[2017-01-28] MEDS: ESOMEPRAZOLE MAGNESIUM 40 MG GT SCH ×2 (09:00→16:14)
[2017-01-28] MEDS: FERROUS SULFATE - FOR SA ONLY 330 MG/7.5 ML UDC GT SCH (09:00)
[2017-01-28] MEDS: NEOMY SULF/BACITRAC ZN/POLY 15 GM TUBE TP SCH ×2 (09:00→21:10)
[2017-01-28] MEDS: CYANOCOBALAMIN 500 MCG TABLET GT SCH (09:00)
[2017-01-28] MEDS: ENOXAPARIN SODIUM 40 MG/0.4 ML DISP.SYRIN SQ SCH (09:00)
--- NOTE | 2017-01-28 10:20 | NUR ---
Ventilator alarming, went into patient's room, ventilator alarm on low minute volume. Resident's face flushed, looks uncomfortable. O2 sat reading 84%-95% remain awake, alert, and responsive to verbal stimulation. Suctioned trach, obtain small to moderate amount of thick yellow secretions. Patient holding her breath, lips tightly closed. Instructed patient not to hold her breath. Increased work of breathing very evident O2 sat remain below 90%. Placed at 100% F102. Oral suctioning done obtain only saliva. No vomiting noted. RT and RN at the bedside. Reported to Dr. Charla Fontanez, episode of desaturation with new order for ABG and CXRY. Orders noted and carried out.
--- NOTE | 2017-01-28 10:41 | NUR ---
Notified Dr. John of resident's episode of desaturation from which ABG and CXRY done. Resident's condition stabilized after removing mucous plug from inner cannula. At this time O2 sat 100% , HR 106, calm and not in distress.
--- NOTE | 2017-01-28 12:04 | NUR ---
Dr. John said that he saw the chest Xray and it it OK. NNO given.
[2017-01-28 13:16] VITALS: BP 116/62
--- NOTE | 2017-01-28 14:05 | NUR ---
Resident's daughter Cheli visited, notified of episode of desaturation today. Cheli stayed with resident, massaging her hands and legs, no episode of vomiting and no further episode of desaturation. Suctioned trach Q2 hours and PRN.
[2017-01-28 18:15] VITALS: BP 113/68
--- NOTE | 2017-01-28 19:32 | NUR ---
PT REC'D ON TRACH NOHELIA 6 ON VENT SETTINGS CHARTED. TRACH IS SECURE AND IS IN PROPER POSITION. NO RESP DISTRESS NOTED. VENT ALARMS ARE SET AND AUDIBLE. VENT IS PLUGGED IN RED OUTLET AMBU BAG IS BEDSIDE. SX SMALL THIN WHITE SECRETIONS. WILL CONTINUE TO MONITOR. Addendum: 01/29/17 at 0436 by DILCIA UNDERWOOD RT Amended: Links added.
[2017-01-28 19:43] VITALS: BP 134/72
[2017-01-28] MEDS: DULOXETINE HCL 30 MG CAPSULE.DR GT SCH (21:10)
[2017-01-29] VITALS: BP 109/62
[2017-01-29] MEDS: IPRATROPIUM NEB FS 0.5 MG/2.5 ML AMPUL.NEB NEB SCH ×4 (01:36→19:38)
[2017-01-29] MEDS: ALBUTEROL HALF STRENGTH 1.25 MG/3 ML VIAL.NEB NEB SCH ×4 (01:36→19:38)
[2017-01-29] MEDS: FIBERSOURCE HN 1,000 ML BOTTLE GT PRN (01:57)
[2017-01-29 06:00] VITALS: BP 113/63
[2017-01-29] MEDS: LEVOTHYROXINE SODIUM 25 MCG TABLET GT SCH (06:02)
[2017-01-29 07:47] VITALS: BP 128/76
[2017-01-29] MEDS: NEOMY SULF/BACITRAC ZN/POLY 15 GM TUBE TP SCH ×2 (09:00→21:31)
[2017-01-29] MEDS: Z GUARD REMEDY 4 OZ OINT TP SCH ×2 (09:00→21:31)
[2017-01-29] MEDS: HYDROGEN PEROXIDE 480 ML BOTTLE TP SCH ×2 (09:00→21:30)
[2017-01-29] MEDS: ASPIRIN 81 MG TAB.CHEW GT SCH (09:51)
[2017-01-29] MEDS: ESOMEPRAZOLE MAGNESIUM 40 MG GT SCH ×2 (09:51→17:37)
[2017-01-29] MEDS: MECLIZINE HCL 12.5 MG TABLET GT SCH ×2 (09:51→21:30)
[2017-01-29] MEDS: FERROUS SULFATE - FOR SA ONLY 330 MG/7.5 ML UDC GT SCH (09:51)
[2017-01-29] MEDS: POLYETHYLENE GLYCOL 3350 17 GM POWD.PACK GT SCH (09:51)
[2017-01-29] MEDS: ZINC SULFATE 220 MG CAPSULE GT SCH (09:52)
[2017-01-29] MEDS: ASCORBIC ACID 500 MG TABLET GT SCH (09:52)
[2017-01-29] MEDS: SENNOSIDES 8.6 MG TABLET GT SCH (09:52)
[2017-01-29] MEDS: ENOXAPARIN SODIUM 40 MG/0.4 ML DISP.SYRIN SQ SCH (09:52)
[2017-01-29] MEDS: CYANOCOBALAMIN 500 MCG TABLET GT SCH (09:52)
[2017-01-29 12:36] VITALS: BP 124/62
[2017-01-29 18:34] VITALS: BP 121/68
[2017-01-29 19:40] VITALS: BP 134/73
[2017-01-29] MEDS: DULOXETINE HCL 30 MG CAPSULE.DR GT SCH (21:31)
[2017-01-30 00:39] VITALS: BP 119/69
[2017-01-30] MEDS: ALBUTEROL HALF STRENGTH 1.25 MG/3 ML VIAL.NEB NEB SCH ×4 (00:54→19:48)
[2017-01-30] MEDS: IPRATROPIUM NEB FS 0.5 MG/2.5 ML AMPUL.NEB NEB SCH ×4 (00:54→19:48)
[2017-01-30] MEDS: LEVOTHYROXINE SODIUM 25 MCG TABLET GT SCH (05:33)
[2017-01-30 06:04] VITALS: BP 126/62
[2017-01-30 07:49] VITALS: BP 144/79
[2017-01-30] MEDS: MECLIZINE HCL 12.5 MG TABLET GT SCH ×2 (09:47→21:18)
[2017-01-30] MEDS: SENNOSIDES 8.6 MG TABLET GT SCH (09:53)
[2017-01-30] MEDS: FERROUS SULFATE - FOR SA ONLY 330 MG/7.5 ML UDC GT SCH (09:53)
[2017-01-30] MEDS: ASCORBIC ACID 500 MG TABLET GT SCH (09:53)
[2017-01-30] MEDS: ASPIRIN 81 MG TAB.CHEW GT SCH (09:53)
[2017-01-30] MEDS: POLYETHYLENE GLYCOL 3350 17 GM POWD.PACK GT SCH (09:53)
[2017-01-30] MEDS: ESOMEPRAZOLE MAGNESIUM 40 MG GT SCH ×2 (09:53→16:17)
[2017-01-30] MEDS: CYANOCOBALAMIN 500 MCG TABLET GT SCH (09:53)
[2017-01-30] MEDS: ZINC SULFATE 220 MG CAPSULE GT SCH (09:53)
[2017-01-30] MEDS: ENOXAPARIN SODIUM 40 MG/0.4 ML DISP.SYRIN SQ SCH (09:54)
[2017-01-30] MEDS: HYDROGEN PEROXIDE 480 ML BOTTLE TP SCH ×2 (09:54→21:18)
[2017-01-30] MEDS: NEOMY SULF/BACITRAC ZN/POLY 15 GM TUBE TP SCH ×2 (09:54→21:18)
[2017-01-30] MEDS: Z GUARD REMEDY 4 OZ OINT TP SCH ×2 (09:55→21:19)
[2017-01-30 13:00] VITALS: BP 130/70
--- NOTE | 2017-01-30 18:11 | NUR ---
RT END OF THE SHIFT REPORT: PT. 76 Y OLD FEMALE REMAIN TRACHED ON VENT WITH NOTED SETTING, ALARMS ARE SET AND FUNCTIONAL, NO DISTRESS NOTED T/O SHIFT, VENT PLUGGED INTO RED OUTLET THX,S GIVEN INLINE AND ELENI. WELL NO A/R NOTED. EQUAL CHEST RISE NOTED AGUIRRE'X FOR MINIMAL WHITE SECRETIONS, B/S BILATERALLY CLEAR/RALES ON BASES. NO CHANGES HME CHANGED AMBU BAG REMAIN AT THE BEDSIDE. REPORT WILL BE PASS TO PM SHIFT Addendum: 01/30/17 at 1814 by HI LA RT Amended: Links added.
[2017-01-30 18:37] VITALS: BP 121/59
[2017-01-30 19:56] VITALS: BP 121/61
[2017-01-30] MEDS: DULOXETINE HCL 30 MG CAPSULE.DR GT SCH (21:19)
[2017-01-31] MEDS: ALBUTEROL HALF STRENGTH 1.25 MG/3 ML VIAL.NEB NEB SCH ×4 (01:19→20:19)
[2017-01-31] MEDS: IPRATROPIUM NEB FS 0.5 MG/2.5 ML AMPUL.NEB NEB SCH ×4 (01:19→20:19)
[2017-01-31 02:16] VITALS: BP 116/58
[2017-01-31] MEDS: LEVOTHYROXINE SODIUM 25 MCG TABLET GT SCH (05:36)
[2017-01-31 06:20] VITALS: BP 122/60
[2017-01-31 07:45] VITALS: BP 126/66
[2017-01-31] MEDS: CYANOCOBALAMIN 500 MCG TABLET GT SCH (09:00)
[2017-01-31] MEDS: ASCORBIC ACID 500 MG TABLET GT SCH (09:00)
[2017-01-31] MEDS: ZINC SULFATE 220 MG CAPSULE GT SCH (09:00)
[2017-01-31] MEDS: ASPIRIN 81 MG TAB.CHEW GT SCH (09:00)
[2017-01-31] MEDS: ENOXAPARIN SODIUM 40 MG/0.4 ML DISP.SYRIN SQ SCH (09:00)
[2017-01-31] MEDS: SENNOSIDES 8.6 MG TABLET GT SCH (09:00)
[2017-01-31] MEDS: MECLIZINE HCL 12.5 MG TABLET GT SCH ×2 (09:00→21:18)
[2017-01-31] MEDS: ESOMEPRAZOLE MAGNESIUM 40 MG GT SCH ×2 (09:00→17:37)
[2017-01-31] MEDS: FERROUS SULFATE - FOR SA ONLY 330 MG/7.5 ML UDC GT SCH (09:00)
[2017-01-31] MEDS: POLYETHYLENE GLYCOL 3350 17 GM POWD.PACK GT SCH (09:00)
[2017-01-31 12:00] VITALS: BP 124/62
--- NOTE | 2017-01-31 15:34 | NUR ---
Pt's daughter requested for PMV use to see if the pt will say a few words when she is visiting. Notified Dr. John. Received order to use PMV with RT supervision as tolerated when family is at bedside. Daughter aware of new order.
[2017-01-31] MEDS: Z GUARD REMEDY 4 OZ OINT TP SCH ×2 (17:00→21:18)
[2017-01-31] MEDS: HYDROGEN PEROXIDE 480 ML BOTTLE TP SCH ×2 (17:00→21:18)
[2017-01-31 18:00] VITALS: BP 122/60
[2017-01-31 19:33] VITALS: BP 115/61
[2017-01-31] MEDS: DULOXETINE HCL 30 MG CAPSULE.DR GT SCH (21:18)
[2017-02-01 00:12] VITALS: BP 112/64
[2017-02-01] MEDS: IPRATROPIUM NEB FS 0.5 MG/2.5 ML AMPUL.NEB NEB SCH ×5 (01:31→19:51)
[2017-02-01] MEDS: ALBUTEROL HALF STRENGTH 1.25 MG/3 ML VIAL.NEB NEB SCH ×5 (01:31→19:51)
[2017-02-01] MEDS: LEVOTHYROXINE SODIUM 25 MCG TABLET GT SCH (05:41)
[2017-02-01 06:10] VITALS: BP 129/58
[2017-02-01 07:45] VITALS: BP 104/66
[2017-02-01] MEDS: ASPIRIN 81 MG TAB.CHEW GT SCH (08:31)
[2017-02-01] MEDS: FERROUS SULFATE - FOR SA ONLY 330 MG/7.5 ML UDC GT SCH (08:31)
[2017-02-01] MEDS: MECLIZINE HCL 12.5 MG TABLET GT SCH ×2 (08:31→21:12)
[2017-02-01] MEDS: POLYETHYLENE GLYCOL 3350 17 GM POWD.PACK GT SCH (08:31)
[2017-02-01] MEDS: ESOMEPRAZOLE MAGNESIUM 40 MG GT SCH ×2 (08:32→17:54)
[2017-02-01] MEDS: ZINC SULFATE 220 MG CAPSULE GT SCH (08:33)
[2017-02-01] MEDS: ASCORBIC ACID 500 MG TABLET GT SCH (08:33)
[2017-02-01] MEDS: SENNOSIDES 8.6 MG TABLET GT SCH (08:33)
[2017-02-01] MEDS: CYANOCOBALAMIN 500 MCG TABLET GT SCH (08:33)
[2017-02-01] MEDS: HYDROGEN PEROXIDE 480 ML BOTTLE TP SCH ×2 (08:35→21:13)
[2017-02-01] MEDS: ENOXAPARIN SODIUM 40 MG/0.4 ML DISP.SYRIN SQ SCH (08:35)
[2017-02-01] MEDS: Z GUARD REMEDY 4 OZ OINT TP SCH ×2 (08:35→21:13)
--- NOTE | 2017-02-01 11:56 | NUR ---
PATIENT RECEIVED TRACHED ON HT 70 VENT. VENT SETTING PER MD ORDER. ALARMS VERIFIED AND AUDIBLE. VENT PLUGGED INTO RED OUTLET. SUCTIONED AND LAVAGED MODERATE AMOUNT OF THICK WHITE/RIBEIRO SECRETIONS. NO DISTRESS NOTED AT THIS TIME. AMBU BAG AND SPARE TRACH AT [facility].
[2017-02-01] MEDS: FIBERSOURCE HN 1,000 ML BOTTLE GT PRN (12:08)
[2017-02-01] MEDS: ACETAMINOPHEN 650 MG/20 ML UDC- FOR SA PATIENTS ONLY GT PRN (12:08)
[2017-02-01] MEDS: CLONIDINE HCL 0.1 MG TABLET GT PRN ×2 (12:14→18:34)
[2017-02-01 18:35] VITALS: BP 134/79
[2017-02-01 20:01] VITALS: BP 113/82
[2017-02-01] MEDS: DULOXETINE HCL 30 MG CAPSULE.DR GT SCH (21:13)
[2017-02-02 00:30] VITALS: BP 133/63
[2017-02-02] MEDS: ALBUTEROL HALF STRENGTH 1.25 MG/3 ML VIAL.NEB NEB SCH ×4 (02:15→20:19)
[2017-02-02] MEDS: IPRATROPIUM NEB FS 0.5 MG/2.5 ML AMPUL.NEB NEB SCH ×4 (02:15→20:19)
[2017-02-02] MEDS: FIBERSOURCE HN 1,000 ML BOTTLE GT PRN ×2 (04:13→20:37)
[2017-02-02] MEDS: LEVOTHYROXINE SODIUM 25 MCG TABLET GT SCH (05:24)
[2017-02-02 06:30] VITALS: BP 121/73
[2017-02-02 07:45] VITALS: BP 128/74
[2017-02-02] MEDS: HYDROGEN PEROXIDE 480 ML BOTTLE TP SCH ×2 (09:00→20:37)
[2017-02-02] MEDS: POLYETHYLENE GLYCOL 3350 17 GM POWD.PACK GT SCH (09:00)
[2017-02-02] MEDS: Z GUARD REMEDY 4 OZ OINT TP SCH ×2 (09:00→20:37)
[2017-02-02] MEDS: MECLIZINE HCL 12.5 MG TABLET GT SCH ×2 (09:00→20:36)
[2017-02-02] MEDS: FERROUS SULFATE - FOR SA ONLY 330 MG/7.5 ML UDC GT SCH (09:00)
[2017-02-02] MEDS: CYANOCOBALAMIN 500 MCG TABLET GT SCH (09:00)
[2017-02-02] MEDS: SENNOSIDES 8.6 MG TABLET GT SCH (09:00)
[2017-02-02] MEDS: ZINC SULFATE 220 MG CAPSULE GT SCH (09:00)
[2017-02-02] MEDS: ESOMEPRAZOLE MAGNESIUM 40 MG GT SCH ×2 (09:00→16:20)
[2017-02-02] MEDS: ASPIRIN 81 MG TAB.CHEW GT SCH (09:00)
[2017-02-02] MEDS: ASCORBIC ACID 500 MG TABLET GT SCH (09:00)
[2017-02-02] MEDS: ENOXAPARIN SODIUM 40 MG/0.4 ML DISP.SYRIN SQ SCH (09:00)
[2017-02-02 12:00] VITALS: BP 118/70
[2017-02-02] MEDS: TRAMADOL HCL 50 MG TABLET GT PRN (16:20)
--- NOTE | 2017-02-02 17:48 | NUR ---
RT END OF THE SHIFT REPORT: PT. 76 Y OLD FEMALE REMAIN TRACHED ON VENT WITH NOTED SETTING, ALARMS ARE SET AND FUNCTIONAL, NO DISTRESS NOTED T/O SHIFT, VENT PLUGGED INTO RED OUTLET THX,S GIVEN INLINE AND ELENI. WELL NO A/R NOTED. EQUAL CHEST RISE NOTED AGUIRRE'X FOR MINIMAL WHITE SECRETIONS, B/S BILATERALLY CLEAR/RALES ON BASES. NO CHANGES HME CHANGED AMBU BAG REMAIN AT THE BEDSIDE. REPORT WILL PASS TO PM SHIFT Addendum: 02/02/17 at 1748 by HI LA RT Amended: Links added.
[2017-02-02 18:13] VITALS: BP 117/69
[2017-02-02 20:14] VITALS: BP 147/63
[2017-02-02] MEDS: DULOXETINE HCL 30 MG CAPSULE.DR GT SCH (22:00)
[2017-02-03] VITALS (7 sets, daily range): BP systolic 114–136; BP diastolic 63–72
[2017-02-03] MEDS: IPRATROPIUM NEB FS 0.5 MG/2.5 ML AMPUL.NEB NEB SCH ×4 (01:16→19:26)
[2017-02-03] MEDS: ALBUTEROL HALF STRENGTH 1.25 MG/3 ML VIAL.NEB NEB SCH ×4 (01:16→19:26)
[2017-02-03] MEDS: LEVOTHYROXINE SODIUM 25 MCG TABLET GT SCH (06:35)
[2017-02-03] MEDS: FERROUS SULFATE - FOR SA ONLY 330 MG/7.5 ML UDC GT SCH (09:10)
[2017-02-03] MEDS: ESOMEPRAZOLE MAGNESIUM 40 MG GT SCH ×2 (09:10→16:29)
[2017-02-03] MEDS: MECLIZINE HCL 12.5 MG TABLET GT SCH ×2 (09:10→21:40)
[2017-02-03] MEDS: POLYETHYLENE GLYCOL 3350 17 GM POWD.PACK GT SCH (09:10)
[2017-02-03] MEDS: ASPIRIN 81 MG TAB.CHEW GT SCH (09:10)
[2017-02-03] MEDS: ENOXAPARIN SODIUM 40 MG/0.4 ML DISP.SYRIN SQ SCH (09:11)
[2017-02-03] MEDS: ZINC SULFATE 220 MG CAPSULE GT SCH (09:11)
[2017-02-03] MEDS: ASCORBIC ACID 500 MG TABLET GT SCH (09:11)
[2017-02-03] MEDS: CYANOCOBALAMIN 500 MCG TABLET GT SCH (09:11)
[2017-02-03] MEDS: SENNOSIDES 8.6 MG TABLET GT SCH (09:11)
[2017-02-03] MEDS: Z GUARD REMEDY 4 OZ OINT TP SCH ×2 (09:11→21:40)
[2017-02-03] MEDS: HYDROGEN PEROXIDE 480 ML BOTTLE TP SCH ×2 (09:11→21:40)
--- NOTE | 2017-02-03 15:35 | NUR ---
INTERDISCIPLINARY PLAN OF CARE CONFERENCE was held today. Dtr attended by phone. New orders were reviewed. Dr. John and the interdisciplinary team reviewed the current plan of care in detail. New orders were reviewed. Resident has order for PMV use when family is at bedside. Resident receiving medication for nausea and vomiting. No other changes are noted.
[2017-02-03] MEDS: DULOXETINE HCL 30 MG CAPSULE.DR GT SCH (21:40)
[2017-02-04] VITALS: BP 128/72
[2017-02-04] MEDS: ALBUTEROL HALF STRENGTH 1.25 MG/3 ML VIAL.NEB NEB SCH ×4 (01:51→20:01)
[2017-02-04] MEDS: IPRATROPIUM NEB FS 0.5 MG/2.5 ML AMPUL.NEB NEB SCH ×4 (01:51→20:01)
[2017-02-04] MEDS: LEVOTHYROXINE SODIUM 25 MCG TABLET GT SCH (05:55)
[2017-02-04 06:00] VITALS: BP 126/68
[2017-02-04 08:02] VITALS: BP 130/74
[2017-02-04] MEDS: ZINC SULFATE 220 MG CAPSULE GT SCH (09:00)
[2017-02-04] MEDS: POLYETHYLENE GLYCOL 3350 17 GM POWD.PACK GT SCH (09:00)
[2017-02-04] MEDS: ENOXAPARIN SODIUM 40 MG/0.4 ML DISP.SYRIN SQ SCH (09:00)
[2017-02-04] MEDS: ASPIRIN 81 MG TAB.CHEW GT SCH (09:00)
[2017-02-04] MEDS: Z GUARD REMEDY 4 OZ OINT TP SCH ×2 (09:00→21:35)
[2017-02-04] MEDS: ASCORBIC ACID 500 MG TABLET GT SCH (09:00)
[2017-02-04] MEDS: FERROUS SULFATE - FOR SA ONLY 330 MG/7.5 ML UDC GT SCH (09:00)
[2017-02-04] MEDS: ESOMEPRAZOLE MAGNESIUM 40 MG GT SCH ×2 (09:00→16:50)
[2017-02-04] MEDS: HYDROGEN PEROXIDE 480 ML BOTTLE TP SCH ×2 (09:00→21:35)
[2017-02-04] MEDS: SENNOSIDES 8.6 MG TABLET GT SCH (09:00)
[2017-02-04] MEDS: CYANOCOBALAMIN 500 MCG TABLET GT SCH (09:00)
[2017-02-04] MEDS: MECLIZINE HCL 12.5 MG TABLET GT SCH ×2 (09:00→21:35)
[2017-02-04] MEDS: FIBERSOURCE HN 1,000 ML BOTTLE GT PRN (11:36)
[2017-02-04 12:37] VITALS: BP 128/54
[2017-02-04 18:25] VITALS: BP 127/76
[2017-02-04 20:01] VITALS: BP 117/62
[2017-02-04] MEDS: DULOXETINE HCL 30 MG CAPSULE.DR GT SCH (21:35)
[2017-02-05] VITALS: BP 135/74
[2017-02-05] MEDS: ALBUTEROL HALF STRENGTH 1.25 MG/3 ML VIAL.NEB NEB SCH ×4 (02:03→19:40)
[2017-02-05] MEDS: IPRATROPIUM NEB FS 0.5 MG/2.5 ML AMPUL.NEB NEB SCH ×4 (02:03→19:40)
[2017-02-05] MEDS: LEVOTHYROXINE SODIUM 25 MCG TABLET GT SCH (05:59)
[2017-02-05 06:01] VITALS: BP 127/68
[2017-02-05 08:11] VITALS: BP 126/75
[2017-02-05] MEDS: Z GUARD REMEDY 4 OZ OINT TP SCH ×2 (09:00→21:26)
[2017-02-05] MEDS: HYDROGEN PEROXIDE 480 ML BOTTLE TP SCH ×2 (09:00→21:26)
[2017-02-05] MEDS: ASCORBIC ACID 500 MG TABLET GT SCH (09:08)
[2017-02-05] MEDS: FERROUS SULFATE - FOR SA ONLY 330 MG/7.5 ML UDC GT SCH (09:08)
[2017-02-05] MEDS: ESOMEPRAZOLE MAGNESIUM 40 MG GT SCH ×2 (09:08→16:16)
[2017-02-05] MEDS: CYANOCOBALAMIN 500 MCG TABLET GT SCH (09:08)
[2017-02-05] MEDS: SENNOSIDES 8.6 MG TABLET GT SCH (09:08)
[2017-02-05] MEDS: ZINC SULFATE 220 MG CAPSULE GT SCH (09:08)
[2017-02-05] MEDS: POLYETHYLENE GLYCOL 3350 17 GM POWD.PACK GT SCH (09:08)
[2017-02-05] MEDS: ASPIRIN 81 MG TAB.CHEW GT SCH (09:08)
[2017-02-05] MEDS: MECLIZINE HCL 12.5 MG TABLET GT SCH ×2 (09:10→21:26)
[2017-02-05] MEDS: ENOXAPARIN SODIUM 40 MG/0.4 ML DISP.SYRIN SQ SCH (09:29)
[2017-02-05 12:10] VITALS: BP 134/62
[2017-02-05 18:22] VITALS: BP 128/60
[2017-02-05 20:02] VITALS: BP 118/61
[2017-02-05] MEDS: DULOXETINE HCL 30 MG CAPSULE.DR GT SCH (21:26)
[2017-02-06 00:02] VITALS: BP 121/58
[2017-02-06] MEDS: ALBUTEROL HALF STRENGTH 1.25 MG/3 ML VIAL.NEB NEB SCH ×4 (01:04→20:25)
[2017-02-06] MEDS: IPRATROPIUM NEB FS 0.5 MG/2.5 ML AMPUL.NEB NEB SCH ×4 (01:04→20:25)
[2017-02-06] MEDS: LEVOTHYROXINE SODIUM 25 MCG TABLET GT SCH (05:23)
[2017-02-06 06:09] VITALS: BP 122/59
[2017-02-06 07:45] VITALS: BP 139/64
[2017-02-06] MEDS: MECLIZINE HCL 12.5 MG TABLET GT SCH ×2 (09:17→21:09)
[2017-02-06] MEDS: CYANOCOBALAMIN 500 MCG TABLET GT SCH (09:18)
[2017-02-06] MEDS: ASPIRIN 81 MG TAB.CHEW GT SCH (09:18)
[2017-02-06] MEDS: ASCORBIC ACID 500 MG TABLET GT SCH (09:18)
[2017-02-06] MEDS: ZINC SULFATE 220 MG CAPSULE GT SCH (09:18)
[2017-02-06] MEDS: ESOMEPRAZOLE MAGNESIUM 40 MG GT SCH ×2 (09:18→17:41)
[2017-02-06] MEDS: POLYETHYLENE GLYCOL 3350 17 GM POWD.PACK GT SCH (09:18)
[2017-02-06] MEDS: SENNOSIDES 8.6 MG TABLET GT SCH (09:18)
[2017-02-06] MEDS: FERROUS SULFATE - FOR SA ONLY 330 MG/7.5 ML UDC GT SCH (09:18)
[2017-02-06] MEDS: ENOXAPARIN SODIUM 40 MG/0.4 ML DISP.SYRIN SQ SCH (09:18)
--- NOTE | 2017-02-06 09:18 | NUR ---
Social Service Section of [facility] (annual) completed. Resident's daughter Cheli is her call person and visits frequently. 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 Resident has a trach and gtube for medication. She is currently on the ventilator.
[2017-02-06 12:00] VITALS: BP 139/64
--- NOTE | 2017-02-06 15:54 | NUR ---
TRACH CARE DONE WITH NO PROBLEM. INNER TRACH CANNULA CHANGED.
[2017-02-06] MEDS: HYDROGEN PEROXIDE 480 ML BOTTLE TP SCH ×2 (17:30→21:09)
[2017-02-06] MEDS: Z GUARD REMEDY 4 OZ OINT TP SCH ×2 (17:30→21:10)
[2017-02-06 18:00] VITALS: BP 132/60
[2017-02-06 19:46] VITALS: BP 121/71
[2017-02-06] MEDS: DULOXETINE HCL 30 MG CAPSULE.DR GT SCH (21:10)
[2017-02-07 00:01] VITALS: BP 116/60
[2017-02-07] MEDS: IPRATROPIUM NEB FS 0.5 MG/2.5 ML AMPUL.NEB NEB SCH ×4 (01:08→19:30)
[2017-02-07] MEDS: ALBUTEROL HALF STRENGTH 1.25 MG/3 ML VIAL.NEB NEB SCH ×4 (01:08→19:30)
[2017-02-07] MEDS: LEVOTHYROXINE SODIUM 25 MCG TABLET GT SCH (05:31)
[2017-02-07 06:04] VITALS: BP 126/62
[2017-02-07 08:08] VITALS: BP 118/70
[2017-02-07] MEDS: MECLIZINE HCL 12.5 MG TABLET GT SCH ×2 (08:44→21:05)
[2017-02-07] MEDS: ASPIRIN 81 MG TAB.CHEW GT SCH (08:44)
[2017-02-07] MEDS: ESOMEPRAZOLE MAGNESIUM 40 MG GT SCH ×2 (08:45→16:40)
[2017-02-07] MEDS: POLYETHYLENE GLYCOL 3350 17 GM POWD.PACK GT SCH (08:45)
[2017-02-07] MEDS: SENNOSIDES 8.6 MG TABLET GT SCH (08:45)
[2017-02-07] MEDS: FERROUS SULFATE - FOR SA ONLY 330 MG/7.5 ML UDC GT SCH (08:45)
[2017-02-07] MEDS: CYANOCOBALAMIN 500 MCG TABLET GT SCH (08:45)
[2017-02-07] MEDS: ZINC SULFATE 220 MG CAPSULE GT SCH (08:45)
[2017-02-07] MEDS: ASCORBIC ACID 500 MG TABLET GT SCH (08:45)
[2017-02-07] MEDS: ENOXAPARIN SODIUM 40 MG/0.4 ML DISP.SYRIN SQ SCH (08:46)
--- NOTE | 2017-02-07 09:00 | NUR ---
Seen and examined by Dr John with no new order
[2017-02-07] MEDS: Z GUARD REMEDY 4 OZ OINT TP SCH ×2 (10:45→21:05)
[2017-02-07] MEDS: HYDROGEN PEROXIDE 480 ML BOTTLE TP SCH ×2 (10:45→21:05)
[2017-02-07 12:00] VITALS: BP 132/60
[2017-02-07] MEDS: FIBERSOURCE HN 1,000 ML BOTTLE GT PRN (14:12)
--- NOTE | 2017-02-07 15:59 | NUR ---
Patient noted to have a cracked/chapped lower lip with a very small amount of bleeding noted. No signs and symptoms of infection noted. Good oral care rendered. Dr. John made aware with new orders noted and carried out. Daughter notified at bedside.
[2017-02-07 18:00] VITALS: BP 124/72
[2017-02-07 19:53] VITALS: BP 110/65
[2017-02-07] MEDS ORDERED: VITAMINS A AND D 56.7 GM TUBE TP PRN (20:30)
[2017-02-07] MEDS: DULOXETINE HCL 30 MG CAPSULE.DR GT SCH (21:05)
[2017-02-08 00:15] VITALS: BP 118/59
[2017-02-08] MEDS: ALBUTEROL HALF STRENGTH 1.25 MG/3 ML VIAL.NEB NEB SCH ×4 (02:29→20:03)
[2017-02-08] MEDS: IPRATROPIUM NEB FS 0.5 MG/2.5 ML AMPUL.NEB NEB SCH ×4 (02:29→20:03)
[2017-02-08] MEDS: LEVOTHYROXINE SODIUM 25 MCG TABLET GT SCH (05:27)
[2017-02-08 06:21] VITALS: BP 119/64
[2017-02-08] MEDS: MECLIZINE HCL 12.5 MG TABLET GT SCH ×2 (08:20→21:31)
[2017-02-08] MEDS: ASPIRIN 81 MG TAB.CHEW GT SCH (08:20)
[2017-02-08] MEDS: SENNOSIDES 8.6 MG TABLET GT SCH (08:21)
[2017-02-08] MEDS: CYANOCOBALAMIN 500 MCG TABLET GT SCH (08:21)
[2017-02-08] MEDS: ZINC SULFATE 220 MG CAPSULE GT SCH (08:21)
[2017-02-08] MEDS: POLYETHYLENE GLYCOL 3350 17 GM POWD.PACK GT SCH (08:21)
[2017-02-08] MEDS: ESOMEPRAZOLE MAGNESIUM 40 MG GT SCH ×2 (08:21→17:00)
[2017-02-08] MEDS: ASCORBIC ACID 500 MG TABLET GT SCH (08:21)
[2017-02-08] MEDS: ENOXAPARIN SODIUM 40 MG/0.4 ML DISP.SYRIN SQ SCH (08:28)
[2017-02-08] MEDS: Z GUARD REMEDY 4 OZ OINT TP SCH ×2 (09:00→21:31)
[2017-02-08] MEDS: HYDROGEN PEROXIDE 480 ML BOTTLE TP SCH ×2 (09:00→21:31)
[2017-02-08] MEDS ORDERED: FERROUS SULFATE - FOR SA ONLY 330 MG/7.5 ML UDC GT SCH (09:00)
[2017-02-08] MEDS ORDERED: TUBERCULIN,PURIF.PROT.DERIV. 5 TU/0.1 ML DISP.SYRIN ID SCH (09:00)
[2017-02-08 10:18] VITALS: BP 121/71
[2017-02-08] MEDS: CLONIDINE HCL 0.1 MG TABLET GT PRN ×2 (11:46→18:03)
[2017-02-08 14:04] VITALS: BP 134/79
[2017-02-08 18:57] VITALS: BP 98/72
[2017-02-08 20:00] VITALS: BP 135/74
[2017-02-08] MEDS: DULOXETINE HCL 30 MG CAPSULE.DR GT SCH (21:31)
[2017-02-08] MEDS: FIBERSOURCE HN 1,000 ML BOTTLE GT PRN (23:40)
[2017-02-09 00:22] VITALS: BP 137/75
[2017-02-09] MEDS: IPRATROPIUM NEB FS 0.5 MG/2.5 ML AMPUL.NEB NEB SCH ×4 (00:53→20:00)
[2017-02-09] MEDS: ALBUTEROL HALF STRENGTH 1.25 MG/3 ML VIAL.NEB NEB SCH ×4 (00:53→20:00)
[2017-02-09] MEDS: LEVOTHYROXINE SODIUM 25 MCG TABLET GT SCH (05:17)
[2017-02-09 06:07] VITALS: BP 139/75
[2017-02-09 07:41] VITALS: BP 123/81
[2017-02-09] MEDS: ZINC SULFATE 220 MG CAPSULE GT SCH (09:00)
[2017-02-09] MEDS: Z GUARD REMEDY 4 OZ OINT TP SCH ×2 (09:00→21:27)
[2017-02-09] MEDS: CYANOCOBALAMIN 500 MCG TABLET GT SCH (09:00)
[2017-02-09] MEDS: ENOXAPARIN SODIUM 40 MG/0.4 ML DISP.SYRIN SQ SCH (09:00)
[2017-02-09] MEDS: MECLIZINE HCL 12.5 MG TABLET GT SCH ×2 (09:00→21:27)
[2017-02-09] MEDS: POLYETHYLENE GLYCOL 3350 17 GM POWD.PACK GT SCH (09:00)
[2017-02-09] MEDS: FERROUS SULFATE - FOR SA ONLY 330 MG/7.5 ML UDC GT SCH (09:00)
[2017-02-09] MEDS: SENNOSIDES 8.6 MG TABLET GT SCH (09:00)
[2017-02-09] MEDS: ASCORBIC ACID 500 MG TABLET GT SCH (09:00)
[2017-02-09] MEDS: ASPIRIN 81 MG TAB.CHEW GT SCH (09:00)
[2017-02-09] MEDS: ESOMEPRAZOLE MAGNESIUM 40 MG GT SCH ×2 (09:00→16:19)
[2017-02-09] MEDS: HYDROGEN PEROXIDE 480 ML BOTTLE TP SCH ×2 (09:00→21:27)
[2017-02-09] MEDS: TRAMADOL HCL 50 MG TABLET GT PRN (12:41)
[2017-02-09 12:47] VITALS: BP 101/53
--- NOTE | 2017-02-09 15:37 | NUR ---
Pt tolerated current vent settings well. Vent is plugged into a red outlet, alarms are set and audible. Ambu bag at bedside. Addendum: 02/09/17 at 1538 by MAI PALOMO RT Amended: Links added.
[2017-02-09 18:51] VITALS: BP 117/53
[2017-02-09 19:43] VITALS: BP 119/49
[2017-02-09] MEDS: DULOXETINE HCL 30 MG CAPSULE.DR GT SCH (21:27)
[2017-02-10] VITALS (7 sets, daily range): BP systolic 118–143; BP diastolic 60–79
[2017-02-10] MEDS: IPRATROPIUM NEB FS 0.5 MG/2.5 ML AMPUL.NEB NEB SCH ×4 (01:40→20:12)
[2017-02-10] MEDS: ALBUTEROL HALF STRENGTH 1.25 MG/3 ML VIAL.NEB NEB SCH ×4 (01:40→20:12)
[2017-02-10] MEDS: LEVOTHYROXINE SODIUM 25 MCG TABLET GT SCH (05:57)
[2017-02-10] MEDS: ESOMEPRAZOLE MAGNESIUM 40 MG GT SCH ×2 (09:48→16:27)
[2017-02-10] MEDS: SENNOSIDES 8.6 MG TABLET GT SCH (09:48)
[2017-02-10] MEDS: FERROUS SULFATE - FOR SA ONLY 330 MG/7.5 ML UDC GT SCH (09:48)
[2017-02-10] MEDS: POLYETHYLENE GLYCOL 3350 17 GM POWD.PACK GT SCH (09:48)
[2017-02-10] MEDS: ASCORBIC ACID 500 MG TABLET GT SCH (09:48)
[2017-02-10] MEDS: MECLIZINE HCL 12.5 MG TABLET GT SCH ×2 (09:48→21:47)
[2017-02-10] MEDS: CYANOCOBALAMIN 500 MCG TABLET GT SCH (09:48)
[2017-02-10] MEDS: ASPIRIN 81 MG TAB.CHEW GT SCH (09:48)
[2017-02-10] MEDS: ZINC SULFATE 220 MG CAPSULE GT SCH (09:48)
[2017-02-10] MEDS: ENOXAPARIN SODIUM 40 MG/0.4 ML DISP.SYRIN SQ SCH (09:49)
[2017-02-10] MEDS: Z GUARD REMEDY 4 OZ OINT TP SCH ×2 (09:49→21:47)
[2017-02-10] MEDS: HYDROGEN PEROXIDE 480 ML BOTTLE TP SCH ×2 (09:49→21:47)
--- NOTE | 2017-02-10 16:28 | NUR ---
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 Daughter Cheli notified of positive result, stated that people coming from [facility] usually turning sander operator to have positive TB test. CXRY order carried out.
[2017-02-10] MEDS: DULOXETINE HCL 30 MG CAPSULE.DR GT SCH (21:47)
[2017-02-11 00:23] VITALS: BP 130/73
[2017-02-11] MEDS: IPRATROPIUM NEB FS 0.5 MG/2.5 ML AMPUL.NEB NEB SCH ×4 (00:38→20:01)
[2017-02-11] MEDS: ALBUTEROL HALF STRENGTH 1.25 MG/3 ML VIAL.NEB NEB SCH ×4 (00:38→20:01)
[2017-02-11] MEDS: LEVOTHYROXINE SODIUM 25 MCG TABLET GT SCH (05:20)
[2017-02-11 06:15] VITALS: BP 110/59
[2017-02-11] MEDS: ZINC SULFATE 220 MG CAPSULE GT SCH (09:57)
[2017-02-11] MEDS: ENOXAPARIN SODIUM 40 MG/0.4 ML DISP.SYRIN SQ SCH (09:57)
[2017-02-11] MEDS: ASCORBIC ACID 500 MG TABLET GT SCH (09:57)
[2017-02-11] MEDS: POLYETHYLENE GLYCOL 3350 17 GM POWD.PACK GT SCH (09:57)
[2017-02-11] MEDS: SENNOSIDES 8.6 MG TABLET GT SCH (09:57)
[2017-02-11] MEDS: CYANOCOBALAMIN 500 MCG TABLET GT SCH (09:57)
[2017-02-11] MEDS: MECLIZINE HCL 12.5 MG TABLET GT SCH ×2 (09:57→21:18)
[2017-02-11] MEDS: ESOMEPRAZOLE MAGNESIUM 40 MG GT SCH ×2 (09:57→17:57)
[2017-02-11] MEDS: FERROUS SULFATE - FOR SA ONLY 330 MG/7.5 ML UDC GT SCH (09:57)
[2017-02-11] MEDS: ASPIRIN 81 MG TAB.CHEW GT SCH (09:57)
[2017-02-11] MEDS: Z GUARD REMEDY 4 OZ OINT TP SCH ×2 (09:58→21:18)
[2017-02-11] MEDS: HYDROGEN PEROXIDE 480 ML BOTTLE TP SCH ×2 (09:58→21:18)
[2017-02-11 12:04] VITALS: BP 124/79
--- NOTE | 2017-02-11 14:06 | NUR ---
Daughter Cheli visited and made aware of chest X-ray result which is negative.
[2017-02-11] MEDS: ONDANSETRON 4 MG TAB.RAPDIS GT PRN (19:15)
[2017-02-11 19:20] VITALS: BP 114/62
[2017-02-11 19:46] VITALS: BP 123/66
[2017-02-11] MEDS: DULOXETINE HCL 30 MG CAPSULE.DR GT SCH (21:18)
[2017-02-12 00:23] VITALS: BP 124/62
[2017-02-12] MEDS: IPRATROPIUM NEB FS 0.5 MG/2.5 ML AMPUL.NEB NEB SCH ×4 (02:23→20:18)
[2017-02-12] MEDS: ALBUTEROL HALF STRENGTH 1.25 MG/3 ML VIAL.NEB NEB SCH ×4 (02:23→20:18)
[2017-02-12] MEDS: FIBERSOURCE HN 1,000 ML BOTTLE GT PRN (05:26)
[2017-02-12] MEDS: LEVOTHYROXINE SODIUM 25 MCG TABLET GT SCH (05:26)
[2017-02-12 06:20] VITALS: BP 118/64
[2017-02-12 07:36] VITALS: BP 167/73
[2017-02-12] MEDS: POLYETHYLENE GLYCOL 3350 17 GM POWD.PACK GT SCH (09:40)
[2017-02-12] MEDS: MECLIZINE HCL 12.5 MG TABLET GT SCH ×2 (09:40→20:36)
[2017-02-12] MEDS: FERROUS SULFATE - FOR SA ONLY 330 MG/7.5 ML UDC GT SCH (09:40)
[2017-02-12] MEDS: ASCORBIC ACID 500 MG TABLET GT SCH (09:40)
[2017-02-12] MEDS: SENNOSIDES 8.6 MG TABLET GT SCH (09:40)
[2017-02-12] MEDS: CYANOCOBALAMIN 500 MCG TABLET GT SCH (09:40)
[2017-02-12] MEDS: ZINC SULFATE 220 MG CAPSULE GT SCH (09:40)
[2017-02-12] MEDS: ASPIRIN 81 MG TAB.CHEW GT SCH (09:40)
[2017-02-12] MEDS: ESOMEPRAZOLE MAGNESIUM 40 MG GT SCH ×2 (09:40→16:58)
[2017-02-12] MEDS: Z GUARD REMEDY 4 OZ OINT TP SCH ×2 (09:41→20:36)
[2017-02-12] MEDS: ENOXAPARIN SODIUM 40 MG/0.4 ML DISP.SYRIN SQ SCH (09:41)
[2017-02-12] MEDS: HYDROGEN PEROXIDE 480 ML BOTTLE TP SCH ×2 (09:41→20:36)
[2017-02-12 13:33] VITALS: BP 125/60
[2017-02-12 18:19] VITALS: BP 118/73
--- NOTE | 2017-02-12 18:44 | NUR ---
Received order from Dr. Galeas on-call for Dr. Foreman to resume Lovenox order noted and carried out.
[2017-02-12 19:58] VITALS: BP 118/94
[2017-02-12] MEDS: DULOXETINE HCL 30 MG CAPSULE.DR GT SCH (22:58)
[2017-02-13 00:07] VITALS: BP 121/64
[2017-02-13] MEDS: ALBUTEROL HALF STRENGTH 1.25 MG/3 ML VIAL.NEB NEB SCH ×4 (01:26→20:14)
[2017-02-13] MEDS: IPRATROPIUM NEB FS 0.5 MG/2.5 ML AMPUL.NEB NEB SCH ×4 (01:26→20:14)
[2017-02-13] MEDS: LEVOTHYROXINE SODIUM 25 MCG TABLET GT SCH (05:21)
[2017-02-13 06:15] VITALS: BP 115/69
[2017-02-13 08:00] VITALS: BP 124/72
[2017-02-13] MEDS: HYDROGEN PEROXIDE 480 ML BOTTLE TP SCH ×2 (09:00→20:32)
[2017-02-13] MEDS: Z GUARD REMEDY 4 OZ OINT TP SCH ×2 (09:00→20:32)
[2017-02-13] MEDS: MECLIZINE HCL 12.5 MG TABLET GT SCH ×2 (10:25→20:32)
[2017-02-13] MEDS: ASPIRIN 81 MG TAB.CHEW GT SCH (10:25)
[2017-02-13] MEDS: ASCORBIC ACID 500 MG TABLET GT SCH (10:25)
[2017-02-13] MEDS: SENNOSIDES 8.6 MG TABLET GT SCH (10:25)
[2017-02-13] MEDS: ZINC SULFATE 220 MG CAPSULE GT SCH (10:25)
[2017-02-13] MEDS: ESOMEPRAZOLE MAGNESIUM 40 MG GT SCH ×2 (10:25→17:03)
[2017-02-13] MEDS: POLYETHYLENE GLYCOL 3350 17 GM POWD.PACK GT SCH (10:25)
[2017-02-13] MEDS: ENOXAPARIN SODIUM 40 MG/0.4 ML DISP.SYRIN SQ SCH (10:25)
[2017-02-13] MEDS: FERROUS SULFATE - FOR SA ONLY 330 MG/7.5 ML UDC GT SCH (10:25)
[2017-02-13] MEDS: CYANOCOBALAMIN 500 MCG TABLET GT SCH (10:25)
--- NOTE | 2017-02-13 15:33 | NUR ---
Patient received trached on HT 70 vent. Alarms verified and audible. Suctioned and lavaged moderate-large amount of thick abdi/white secretions. Vent plugged into red outlet. Ambu bag at [facility].
[2017-02-13 16:05] VITALS: BP 127/72
[2017-02-13 18:44] VITALS: BP 119/69
[2017-02-13 20:00] VITALS: BP 137/77
[2017-02-13] MEDS: DULOXETINE HCL 30 MG CAPSULE.DR GT SCH (21:14)
[2017-02-14 00:32] VITALS: BP 123/67
[2017-02-14] MEDS: ALBUTEROL HALF STRENGTH 1.25 MG/3 ML VIAL.NEB NEB SCH ×4 (02:20→19:30)
[2017-02-14] MEDS: IPRATROPIUM NEB FS 0.5 MG/2.5 ML AMPUL.NEB NEB SCH ×4 (02:20→19:30)
[2017-02-14] MEDS: LEVOTHYROXINE SODIUM 25 MCG TABLET GT SCH (05:23)
[2017-02-14 06:30] VITALS: BP 117/72
[2017-02-14 08:00] VITALS: BP 127/78
[2017-02-14] MEDS: Z GUARD REMEDY 4 OZ OINT TP SCH ×2 (09:00→20:49)
[2017-02-14] MEDS: HYDROGEN PEROXIDE 480 ML BOTTLE TP SCH ×2 (09:00→20:49)
[2017-02-14] MEDS: CYANOCOBALAMIN 500 MCG TABLET GT SCH (09:45)
[2017-02-14] MEDS: ASPIRIN 81 MG TAB.CHEW GT SCH (09:45)
[2017-02-14] MEDS: POLYETHYLENE GLYCOL 3350 17 GM POWD.PACK GT SCH (09:45)
[2017-02-14] MEDS: ENOXAPARIN SODIUM 40 MG/0.4 ML DISP.SYRIN SQ SCH (09:45)
[2017-02-14] MEDS: ESOMEPRAZOLE MAGNESIUM 40 MG GT SCH ×2 (09:45→17:49)
[2017-02-14] MEDS: ZINC SULFATE 220 MG CAPSULE GT SCH (09:45)
[2017-02-14] MEDS: ASCORBIC ACID 500 MG TABLET GT SCH (09:45)
[2017-02-14] MEDS: MECLIZINE HCL 12.5 MG TABLET GT SCH ×2 (09:45→20:49)
[2017-02-14] MEDS: SENNOSIDES 8.6 MG TABLET GT SCH (09:45)
[2017-02-14] MEDS: FERROUS SULFATE - FOR SA ONLY 330 MG/7.5 ML UDC GT SCH (09:45)
--- NOTE | 2017-02-14 10:05 | NUR ---
Seen and examined by Dr John with no new order
[2017-02-14 16:19] VITALS: BP 123/76
[2017-02-14 18:48] VITALS: BP 119/69
[2017-02-14 20:05] VITALS: BP 121/72
[2017-02-14] MEDS: DULOXETINE HCL 30 MG CAPSULE.DR GT SCH (21:24)
[2017-02-15 00:14] VITALS: BP 117/71
[2017-02-15] MEDS: IPRATROPIUM NEB FS 0.5 MG/2.5 ML AMPUL.NEB NEB SCH ×4 (02:29→19:28)
[2017-02-15] MEDS: ALBUTEROL HALF STRENGTH 1.25 MG/3 ML VIAL.NEB NEB SCH ×4 (02:30→19:28)
[2017-02-15] MEDS: LEVOTHYROXINE SODIUM 25 MCG TABLET GT SCH (05:33)
[2017-02-15 06:25] VITALS: BP 121/66
[2017-02-15] MEDS: ZINC SULFATE 220 MG CAPSULE GT SCH (09:04)
[2017-02-15] MEDS: POLYETHYLENE GLYCOL 3350 17 GM POWD.PACK GT SCH (09:04)
[2017-02-15] MEDS: CYANOCOBALAMIN 500 MCG TABLET GT SCH (09:04)
[2017-02-15] MEDS: SENNOSIDES 8.6 MG TABLET GT SCH (09:04)
[2017-02-15] MEDS: MECLIZINE HCL 12.5 MG TABLET GT SCH ×2 (09:04→21:26)
[2017-02-15] MEDS: ASPIRIN 81 MG TAB.CHEW GT SCH (09:04)
[2017-02-15] MEDS: ASCORBIC ACID 500 MG TABLET GT SCH (09:04)
[2017-02-15] MEDS: FERROUS SULFATE - FOR SA ONLY 330 MG/7.5 ML UDC GT SCH (09:04)
[2017-02-15] MEDS: ESOMEPRAZOLE MAGNESIUM 40 MG GT SCH ×2 (09:04→17:41)
[2017-02-15] MEDS: Z GUARD REMEDY 4 OZ OINT TP SCH ×2 (09:49→21:26)
[2017-02-15] MEDS: ENOXAPARIN SODIUM 40 MG/0.4 ML DISP.SYRIN SQ SCH (09:49)
[2017-02-15] MEDS: HYDROGEN PEROXIDE 480 ML BOTTLE TP SCH ×2 (09:49→21:26)
[2017-02-15 14:31] VITALS: BP 118/63
[2017-02-15] MEDS: ONDANSETRON 4 MG TAB.RAPDIS GT PRN (18:30)
[2017-02-15 18:34] VITALS: BP 125/65
[2017-02-15 20:02] VITALS: BP 127/72
[2017-02-15] MEDS: DULOXETINE HCL 30 MG CAPSULE.DR GT SCH (21:26)
[2017-02-16] MEDS: FIBERSOURCE HN 1,000 ML BOTTLE GT PRN ×2 (00:33→19:11)
[2017-02-16 00:53] VITALS: BP 137/77
[2017-02-16] MEDS: ALBUTEROL HALF STRENGTH 1.25 MG/3 ML VIAL.NEB NEB SCH ×4 (01:38→19:29)
[2017-02-16] MEDS: IPRATROPIUM NEB FS 0.5 MG/2.5 ML AMPUL.NEB NEB SCH ×4 (01:38→19:29)
[2017-02-16] MEDS: LEVOTHYROXINE SODIUM 25 MCG TABLET GT SCH (05:45)
[2017-02-16 06:14] VITALS: BP 125/70
[2017-02-16 07:47] VITALS: BP 131/76
[2017-02-16] MEDS: ASCORBIC ACID 500 MG TABLET GT SCH (09:00)
[2017-02-16] MEDS: Z GUARD REMEDY 4 OZ OINT TP SCH ×2 (09:00→21:16)
[2017-02-16] MEDS: CYANOCOBALAMIN 500 MCG TABLET GT SCH (09:00)
[2017-02-16] MEDS: POLYETHYLENE GLYCOL 3350 17 GM POWD.PACK GT SCH (09:00)
[2017-02-16] MEDS: SENNOSIDES 8.6 MG TABLET GT SCH (09:00)
[2017-02-16] MEDS: ESOMEPRAZOLE MAGNESIUM 40 MG GT SCH ×2 (09:00→16:43)
[2017-02-16] MEDS: FERROUS SULFATE - FOR SA ONLY 330 MG/7.5 ML UDC GT SCH (09:00)
[2017-02-16] MEDS: MECLIZINE HCL 12.5 MG TABLET GT SCH ×2 (09:00→21:15)
[2017-02-16] MEDS: ENOXAPARIN SODIUM 40 MG/0.4 ML DISP.SYRIN SQ SCH (09:00)
[2017-02-16] MEDS: ZINC SULFATE 220 MG CAPSULE GT SCH (09:00)
[2017-02-16] MEDS: ASPIRIN 81 MG TAB.CHEW GT SCH (09:00)
[2017-02-16] MEDS: HYDROGEN PEROXIDE 480 ML BOTTLE TP SCH ×2 (09:00→21:16)
--- NOTE | 2017-02-16 11:00 | NUR ---
LATE ENTRY: RT NOTE PATIENT'S PULSE-OX WAS REMOVED FROM ROOM DUE TO MACHINE ERROR. NO MACHINES AVAILABLE AT THIS TIME. NOTIFIED NETWORK PROJECT MANAGER (LITZY Monterroso).
[2017-02-16 13:09] VITALS: BP 106/65
[2017-02-16 18:27] VITALS: BP 128/82
[2017-02-16 20:00] VITALS: BP 120/61
[2017-02-16] MEDS: DULOXETINE HCL 30 MG CAPSULE.DR GT SCH (21:16)
[2017-02-17 00:55] VITALS: BP 108/52
[2017-02-17] MEDS: ALBUTEROL HALF STRENGTH 1.25 MG/3 ML VIAL.NEB NEB SCH ×4 (01:40→20:01)
[2017-02-17] MEDS: IPRATROPIUM NEB FS 0.5 MG/2.5 ML AMPUL.NEB NEB SCH ×4 (01:40→20:01)
[2017-02-17] MEDS: LEVOTHYROXINE SODIUM 25 MCG TABLET GT SCH (05:42)
[2017-02-17 06:34] VITALS: BP 122/65
[2017-02-17 07:48] VITALS: BP 144/74
[2017-02-17] MEDS: ASPIRIN 81 MG TAB.CHEW GT SCH (09:00)
[2017-02-17] MEDS: ZINC SULFATE 220 MG CAPSULE GT SCH (09:00)
[2017-02-17] MEDS: POLYETHYLENE GLYCOL 3350 17 GM POWD.PACK GT SCH (09:00)
[2017-02-17] MEDS: MECLIZINE HCL 12.5 MG TABLET GT SCH ×2 (09:00→20:52)
[2017-02-17] MEDS: CYANOCOBALAMIN 500 MCG TABLET GT SCH (09:00)
[2017-02-17] MEDS: ASCORBIC ACID 500 MG TABLET GT SCH (09:00)
[2017-02-17] MEDS: ENOXAPARIN SODIUM 40 MG/0.4 ML DISP.SYRIN SQ SCH (09:00)
[2017-02-17] MEDS: SENNOSIDES 8.6 MG TABLET GT SCH (09:00)
[2017-02-17] MEDS: ESOMEPRAZOLE MAGNESIUM 40 MG GT SCH ×2 (09:00→17:00)
[2017-02-17] MEDS: FERROUS SULFATE - FOR SA ONLY 330 MG/7.5 ML UDC GT SCH (09:00)
[2017-02-17 12:00] VITALS: BP 130/74
[2017-02-17] MEDS: FIBERSOURCE HN 1,000 ML BOTTLE GT PRN (14:22)
[2017-02-17] MEDS: Z GUARD REMEDY 4 OZ OINT TP SCH ×2 (15:00→20:52)
[2017-02-17] MEDS: HYDROGEN PEROXIDE 480 ML BOTTLE TP SCH ×2 (15:00→20:52)
[2017-02-17 18:00] VITALS: BP 114/78
[2017-02-17 19:30] VITALS: BP 121/69
[2017-02-17] MEDS: DULOXETINE HCL 30 MG CAPSULE.DR GT SCH (22:02)
[2017-02-18 00:03] VITALS: BP 127/73
[2017-02-18] MEDS: ALBUTEROL HALF STRENGTH 1.25 MG/3 ML VIAL.NEB NEB SCH ×4 (01:57→19:48)
[2017-02-18] MEDS: IPRATROPIUM NEB FS 0.5 MG/2.5 ML AMPUL.NEB NEB SCH ×4 (01:57→19:48)
[2017-02-18] MEDS: LEVOTHYROXINE SODIUM 25 MCG TABLET GT SCH (05:38)
[2017-02-18 06:13] VITALS: BP 100/78
[2017-02-18 07:54] VITALS: BP 121/72
[2017-02-18] MEDS: Z GUARD REMEDY 4 OZ OINT TP SCH ×2 (09:00→20:35)
[2017-02-18] MEDS: ASPIRIN 81 MG TAB.CHEW GT SCH (09:26)
[2017-02-18] MEDS: POLYETHYLENE GLYCOL 3350 17 GM POWD.PACK GT SCH (09:26)
[2017-02-18] MEDS: MECLIZINE HCL 12.5 MG TABLET GT SCH ×2 (09:26→20:35)
[2017-02-18] MEDS: ESOMEPRAZOLE MAGNESIUM 40 MG GT SCH ×2 (09:26→17:00)
[2017-02-18] MEDS: FERROUS SULFATE - FOR SA ONLY 330 MG/7.5 ML UDC GT SCH (09:26)
[2017-02-18] MEDS: SENNOSIDES 8.6 MG TABLET GT SCH (09:27)
[2017-02-18] MEDS: ZINC SULFATE 220 MG CAPSULE GT SCH (09:27)
[2017-02-18] MEDS: ENOXAPARIN SODIUM 40 MG/0.4 ML DISP.SYRIN SQ SCH (09:27)
[2017-02-18] MEDS: ASCORBIC ACID 500 MG TABLET GT SCH (09:27)
[2017-02-18] MEDS: CYANOCOBALAMIN 500 MCG TABLET GT SCH (09:27)
[2017-02-18] MEDS: FIBERSOURCE HN 1,000 ML BOTTLE GT PRN (10:36)
[2017-02-18 12:00] VITALS: BP 124/72
[2017-02-18] MEDS: HYDROGEN PEROXIDE 480 ML BOTTLE TP SCH ×2 (12:15→20:35)
[2017-02-18 18:00] VITALS: BP 131/47
--- NOTE | 2017-02-18 19:11 | NUR ---
02/18/17 @ 0330 MACHINIST APPRENTICE called me and showed a purplish blue discoloration on left inner forearm, size [id number]. No open skin with a firm to touch spot in the center. Charge Nurse made aware, photo taken and endorsed to next shift to inform daughter in am. Per MACHINIST APPRENTICE he does not know what event that caused it. No complain of pain when pt was asked. Pt is on Lovenox.
[2017-02-18 21:12] VITALS: BP 112/67
[2017-02-18] MEDS: DULOXETINE HCL 30 MG CAPSULE.DR GT SCH (21:31)
[2017-02-19 00:05] VITALS: BP 123/70
[2017-02-19] MEDS: IPRATROPIUM NEB FS 0.5 MG/2.5 ML AMPUL.NEB NEB SCH ×4 (01:51→19:58)
[2017-02-19] MEDS: ALBUTEROL HALF STRENGTH 1.25 MG/3 ML VIAL.NEB NEB SCH ×4 (01:51→19:58)
[2017-02-19] MEDS: LEVOTHYROXINE SODIUM 25 MCG TABLET GT SCH (05:02)
[2017-02-19 06:07] VITALS: BP 125/73
[2017-02-19 07:34] VITALS: BP 135/69
[2017-02-19] MEDS: FERROUS SULFATE - FOR SA ONLY 330 MG/7.5 ML UDC GT SCH (09:15)
[2017-02-19] MEDS: POLYETHYLENE GLYCOL 3350 17 GM POWD.PACK GT SCH (09:15)
[2017-02-19] MEDS: MECLIZINE HCL 12.5 MG TABLET GT SCH ×2 (09:15→21:21)
[2017-02-19] MEDS: ASPIRIN 81 MG TAB.CHEW GT SCH (09:15)
[2017-02-19] MEDS: ESOMEPRAZOLE MAGNESIUM 40 MG GT SCH ×2 (09:15→17:35)
[2017-02-19] MEDS: ENOXAPARIN SODIUM 40 MG/0.4 ML DISP.SYRIN SQ SCH (09:16)
[2017-02-19] MEDS: ZINC SULFATE 220 MG CAPSULE GT SCH (09:16)
[2017-02-19] MEDS: ASCORBIC ACID 500 MG TABLET GT SCH (09:16)
[2017-02-19] MEDS: CYANOCOBALAMIN 500 MCG TABLET GT SCH (09:16)
[2017-02-19] MEDS: SENNOSIDES 8.6 MG TABLET GT SCH (09:16)
[2017-02-19] MEDS: HYDROGEN PEROXIDE 480 ML BOTTLE TP SCH ×2 (09:25→21:21)
[2017-02-19] MEDS: Z GUARD REMEDY 4 OZ OINT TP SCH ×2 (09:25→21:21)
[2017-02-19 12:33] VITALS: BP 118/68
[2017-02-19 18:16] VITALS: BP 115/65
[2017-02-19 20:00] VITALS: BP 127/70
[2017-02-19] MEDS: DULOXETINE HCL 30 MG CAPSULE.DR GT SCH (21:21)
[2017-02-19] MEDS: FIBERSOURCE HN 1,000 ML BOTTLE GT PRN (21:21)
[2017-02-20] VITALS (7 sets, daily range): BP systolic 118–128; BP diastolic 55–76
[2017-02-20] MEDS: ALBUTEROL HALF STRENGTH 1.25 MG/3 ML VIAL.NEB NEB SCH ×4 (00:52→19:34)
[2017-02-20] MEDS: IPRATROPIUM NEB FS 0.5 MG/2.5 ML AMPUL.NEB NEB SCH ×4 (00:52→19:34)
[2017-02-20] MEDS: LEVOTHYROXINE SODIUM 25 MCG TABLET GT SCH (05:25)
--- NOTE | 2017-02-20 07:21 | NUR ---
RT PT RECEIVED TRACHED ON THE VENT WITH NOTED SETTINGS. PT IS AWAKE AND ALERT. VENT ALARMS ARE SET AND AUDIBLE WITH BVM BY BEDSIDE. CAGE MANAGER CUFF PRESSURE NOTED. VENT IS PLUGGED INTO RED OUTLET. SX SMALL THICK SECRETIONS. NO RESPIRATORY DISTRESS NOTED AT THIS TIME, WILL CONTINUE TO MONITOR. Addendum: 02/20/17 at 1008 by MILKA MARQUES RT Amended: Links added.
--- NOTE | 2017-02-20 08:15 | NUR ---
RT MONTHLY TRACH CHANGE DONE WITH NEW SHILEY 6 CUFFED TRACH. NO BLEEDING AT TRACH SITE WITH NO REDNESS. EQUAL BILATERAL BREATHE SOUNDS AND CHEST RISE. PROCUREMENT PROFESSIONAL LOGISTICS CUFF PRESSURE NOTED. NO RESPIRATORY DISTRESS NOTED AT THIS TIME, WILL CONTINUE TO MONITOR. Addendum: 02/20/17 at 1022 by MILKA MARQUES RT Amended: Links added.
[2017-02-20] MEDS: SENNOSIDES 8.6 MG TABLET GT SCH (09:24)
[2017-02-20] MEDS: FERROUS SULFATE - FOR SA ONLY 330 MG/7.5 ML UDC GT SCH (09:24)
[2017-02-20] MEDS: CYANOCOBALAMIN 500 MCG TABLET GT SCH (09:24)
[2017-02-20] MEDS: ASPIRIN 81 MG TAB.CHEW GT SCH (09:24)
[2017-02-20] MEDS: ZINC SULFATE 220 MG CAPSULE GT SCH (09:24)
[2017-02-20] MEDS: ASCORBIC ACID 500 MG TABLET GT SCH (09:24)
[2017-02-20] MEDS: POLYETHYLENE GLYCOL 3350 17 GM POWD.PACK GT SCH (09:24)
[2017-02-20] MEDS: ESOMEPRAZOLE MAGNESIUM 40 MG GT SCH ×2 (09:24→17:52)
[2017-02-20] MEDS: MECLIZINE HCL 12.5 MG TABLET GT SCH ×2 (09:24→21:00)
[2017-02-20] MEDS: ENOXAPARIN SODIUM 40 MG/0.4 ML DISP.SYRIN SQ SCH (09:25)
[2017-02-20] MEDS: HYDROGEN PEROXIDE 480 ML BOTTLE TP SCH ×2 (09:34→21:48)
[2017-02-20] MEDS: Z GUARD REMEDY 4 OZ OINT TP SCH ×2 (09:34→21:48)
[2017-02-20] MEDS: DULOXETINE HCL 30 MG CAPSULE.DR GT SCH (21:00)
[2017-02-21] VITALS: BP 127/66
[2017-02-21] MEDS: ALBUTEROL HALF STRENGTH 1.25 MG/3 ML VIAL.NEB NEB SCH ×4 (01:43→19:42)
[2017-02-21] MEDS: IPRATROPIUM NEB FS 0.5 MG/2.5 ML AMPUL.NEB NEB SCH ×4 (01:43→19:42)
[2017-02-21 06:00] VITALS: BP_SYST 120
[2017-02-21] MEDS: LEVOTHYROXINE SODIUM 25 MCG TABLET GT SCH (06:01)
[2017-02-21 07:38] VITALS: BP 104/78
[2017-02-21] MEDS: POLYETHYLENE GLYCOL 3350 17 GM POWD.PACK GT SCH (09:31)
[2017-02-21] MEDS: MECLIZINE HCL 12.5 MG TABLET GT SCH ×2 (09:31→20:47)
[2017-02-21] MEDS: CYANOCOBALAMIN 500 MCG TABLET GT SCH (09:31)
[2017-02-21] MEDS: ENOXAPARIN SODIUM 40 MG/0.4 ML DISP.SYRIN SQ SCH (09:31)
[2017-02-21] MEDS: ESOMEPRAZOLE MAGNESIUM 40 MG GT SCH ×2 (09:31→17:27)
[2017-02-21] MEDS: ZINC SULFATE 220 MG CAPSULE GT SCH (09:31)
[2017-02-21] MEDS: SENNOSIDES 8.6 MG TABLET GT SCH (09:31)
[2017-02-21] MEDS: ASCORBIC ACID 500 MG TABLET GT SCH (09:31)
[2017-02-21] MEDS: FERROUS SULFATE - FOR SA ONLY 330 MG/7.5 ML UDC GT SCH (09:31)
[2017-02-21] MEDS: ASPIRIN 81 MG TAB.CHEW GT SCH (09:31)
[2017-02-21] MEDS: HYDROGEN PEROXIDE 480 ML BOTTLE TP SCH ×2 (09:32→20:47)
[2017-02-21] MEDS: Z GUARD REMEDY 4 OZ OINT TP SCH ×2 (09:32→20:48)
[2017-02-21 16:44] VITALS: BP 116/69
[2017-02-21 18:53] VITALS: BP 122/70
[2017-02-21 20:05] VITALS: BP 125/62
[2017-02-21] MEDS: DULOXETINE HCL 30 MG CAPSULE.DR GT SCH (21:32)
[2017-02-22 00:28] VITALS: BP 119/71
[2017-02-22] MEDS: ALBUTEROL HALF STRENGTH 1.25 MG/3 ML VIAL.NEB NEB SCH ×4 (00:50→20:09)
[2017-02-22] MEDS: IPRATROPIUM NEB FS 0.5 MG/2.5 ML AMPUL.NEB NEB SCH ×4 (00:50→20:08)
[2017-02-22] MEDS: LEVOTHYROXINE SODIUM 25 MCG TABLET GT SCH (05:10)
[2017-02-22 06:16] VITALS: BP 121/67
[2017-02-22 07:40] VITALS: BP 137/70
[2017-02-22] MEDS: ASCORBIC ACID 500 MG TABLET GT SCH (08:05)
[2017-02-22] MEDS: ZINC SULFATE 220 MG CAPSULE GT SCH (08:05)
[2017-02-22] MEDS: POLYETHYLENE GLYCOL 3350 17 GM POWD.PACK GT SCH (08:05)
[2017-02-22] MEDS: CYANOCOBALAMIN 500 MCG TABLET GT SCH (08:05)
[2017-02-22] MEDS: FERROUS SULFATE - FOR SA ONLY 330 MG/7.5 ML UDC GT SCH (08:05)
[2017-02-22] MEDS: MECLIZINE HCL 12.5 MG TABLET GT SCH ×2 (08:05→20:49)
[2017-02-22] MEDS: SENNOSIDES 8.6 MG TABLET GT SCH (08:05)
[2017-02-22] MEDS: ESOMEPRAZOLE MAGNESIUM 40 MG GT SCH ×2 (08:05→16:37)
[2017-02-22] MEDS: ASPIRIN 81 MG TAB.CHEW GT SCH (08:05)
[2017-02-22] MEDS: ENOXAPARIN SODIUM 40 MG/0.4 ML DISP.SYRIN SQ SCH (08:06)
[2017-02-22] MEDS: HYDROGEN PEROXIDE 480 ML BOTTLE TP SCH ×2 (14:30→20:49)
[2017-02-22] MEDS: Z GUARD REMEDY 4 OZ OINT TP SCH ×2 (14:30→20:49)
[2017-02-22 18:00] VITALS: BP 138/59
[2017-02-22 20:20] VITALS: BP 126/63
[2017-02-22] MEDS: DULOXETINE HCL 30 MG CAPSULE.DR GT SCH (21:24)
[2017-02-23 00:27] VITALS: BP 129/70
[2017-02-23] MEDS: FIBERSOURCE HN 1,000 ML BOTTLE GT PRN (01:05)
[2017-02-23] MEDS: IPRATROPIUM NEB FS 0.5 MG/2.5 ML AMPUL.NEB NEB SCH ×4 (02:03→19:35)
[2017-02-23] MEDS: ALBUTEROL HALF STRENGTH 1.25 MG/3 ML VIAL.NEB NEB SCH ×4 (02:03→19:35)
[2017-02-23] MEDS: LEVOTHYROXINE SODIUM 25 MCG TABLET GT SCH (05:25)
[2017-02-23 06:11] VITALS: BP 102/58
[2017-02-23 08:00] VITALS: BP 101/60
[2017-02-23] MEDS: ZINC SULFATE 220 MG CAPSULE GT SCH (09:00)
[2017-02-23] MEDS: ESOMEPRAZOLE MAGNESIUM 40 MG GT SCH ×2 (09:00→17:33)
[2017-02-23] MEDS: CYANOCOBALAMIN 500 MCG TABLET GT SCH (09:00)
[2017-02-23] MEDS: ASPIRIN 81 MG TAB.CHEW GT SCH (09:00)
[2017-02-23] MEDS: MECLIZINE HCL 12.5 MG TABLET GT SCH ×2 (09:00→20:34)
[2017-02-23] MEDS: Z GUARD REMEDY 4 OZ OINT TP SCH ×2 (09:00→20:34)
[2017-02-23] MEDS: POLYETHYLENE GLYCOL 3350 17 GM POWD.PACK GT SCH (09:00)
[2017-02-23] MEDS: FERROUS SULFATE - FOR SA ONLY 330 MG/7.5 ML UDC GT SCH (09:00)
[2017-02-23] MEDS: ENOXAPARIN SODIUM 40 MG/0.4 ML DISP.SYRIN SQ SCH (09:00)
[2017-02-23] MEDS: SENNOSIDES 8.6 MG TABLET GT SCH (09:00)
[2017-02-23] MEDS: HYDROGEN PEROXIDE 480 ML BOTTLE TP SCH ×2 (09:00→20:34)
[2017-02-23] MEDS: ASCORBIC ACID 500 MG TABLET GT SCH (09:00)
[2017-02-23 13:21] VITALS: BP 107/68
[2017-02-23 18:33] VITALS: BP 111/65
[2017-02-23] MEDS: DULOXETINE HCL 30 MG CAPSULE.DR GT SCH (21:22)
[2017-02-23 21:24] VITALS: BP 120/71
[2017-02-24] VITALS (7 sets, daily range): BP systolic 101–157; BP diastolic 66–84
[2017-02-24] MEDS: IPRATROPIUM NEB FS 0.5 MG/2.5 ML AMPUL.NEB NEB SCH ×4 (01:01→19:38)
[2017-02-24] MEDS: ALBUTEROL HALF STRENGTH 1.25 MG/3 ML VIAL.NEB NEB SCH ×4 (01:01→19:38)
[2017-02-24] MEDS: FIBERSOURCE HN 1,000 ML BOTTLE GT PRN (01:08)
[2017-02-24] MEDS: LEVOTHYROXINE SODIUM 25 MCG TABLET GT SCH (05:08)
[2017-02-24] MEDS: ZINC SULFATE 220 MG CAPSULE GT SCH (09:00)
[2017-02-24] MEDS: Z GUARD REMEDY 4 OZ OINT TP SCH ×2 (09:00→20:25)
[2017-02-24] MEDS: ASCORBIC ACID 500 MG TABLET GT SCH (09:00)
[2017-02-24] MEDS: SENNOSIDES 8.6 MG TABLET GT SCH (09:00)
[2017-02-24] MEDS: POLYETHYLENE GLYCOL 3350 17 GM POWD.PACK GT SCH (09:00)
[2017-02-24] MEDS: CYANOCOBALAMIN 500 MCG TABLET GT SCH (09:00)
[2017-02-24] MEDS: ENOXAPARIN SODIUM 40 MG/0.4 ML DISP.SYRIN SQ SCH (09:00)
[2017-02-24] MEDS: FERROUS SULFATE - FOR SA ONLY 330 MG/7.5 ML UDC GT SCH (09:00)
[2017-02-24] MEDS: MECLIZINE HCL 12.5 MG TABLET GT SCH ×2 (09:00→20:25)
[2017-02-24] MEDS: ASPIRIN 81 MG TAB.CHEW GT SCH (09:00)
[2017-02-24] MEDS: ESOMEPRAZOLE MAGNESIUM 40 MG GT SCH ×2 (09:00→16:32)
[2017-02-24] MEDS: HYDROGEN PEROXIDE 480 ML BOTTLE TP SCH ×2 (09:00→20:25)
[2017-02-24] MEDS: ONDANSETRON 4 MG TAB.RAPDIS GT PRN (14:12)
[2017-02-24] MEDS: DULOXETINE HCL 30 MG CAPSULE.DR GT SCH (21:08)
[2017-02-25 00:06] VITALS: BP 114/53
[2017-02-25] MEDS: FIBERSOURCE HN 1,000 ML BOTTLE GT PRN ×2 (00:28→16:18)
[2017-02-25] MEDS: IPRATROPIUM NEB FS 0.5 MG/2.5 ML AMPUL.NEB NEB SCH ×4 (02:06→19:30)
[2017-02-25] MEDS: ALBUTEROL HALF STRENGTH 1.25 MG/3 ML VIAL.NEB NEB SCH ×4 (02:06→19:30)
[2017-02-25] MEDS: LEVOTHYROXINE SODIUM 25 MCG TABLET GT SCH (05:46)
[2017-02-25 06:09] VITALS: BP 112/63
[2017-02-25 08:01] VITALS: BP 111/69
[2017-02-25] MEDS: CYANOCOBALAMIN 500 MCG TABLET GT SCH (09:00)
[2017-02-25] MEDS: MECLIZINE HCL 12.5 MG TABLET GT SCH ×2 (09:00→20:10)
[2017-02-25] MEDS: ESOMEPRAZOLE MAGNESIUM 40 MG GT SCH ×2 (09:00→16:18)
[2017-02-25] MEDS: ASCORBIC ACID 500 MG TABLET GT SCH (09:00)
[2017-02-25] MEDS: HYDROGEN PEROXIDE 480 ML BOTTLE TP SCH ×2 (09:00→20:10)
[2017-02-25] MEDS: Z GUARD REMEDY 4 OZ OINT TP SCH ×2 (09:00→20:10)
[2017-02-25] MEDS: POLYETHYLENE GLYCOL 3350 17 GM POWD.PACK GT SCH (09:00)
[2017-02-25] MEDS: FERROUS SULFATE - FOR SA ONLY 330 MG/7.5 ML UDC GT SCH (09:00)
[2017-02-25] MEDS: SENNOSIDES 8.6 MG TABLET GT SCH (09:00)
[2017-02-25] MEDS: ENOXAPARIN SODIUM 40 MG/0.4 ML DISP.SYRIN SQ SCH (09:00)
[2017-02-25] MEDS: ASPIRIN 81 MG TAB.CHEW GT SCH (09:00)
[2017-02-25] MEDS: ZINC SULFATE 220 MG CAPSULE GT SCH (09:00)
--- NOTE | 2017-02-25 11:08 | NUR ---
Rt Patient received trached on [facility] vent. Breath sounds equal bilaterally. Tr given as ordered. No adverce reactions. Vent settings as ordered. Vent plugged into red outlet and alarms set and audible.
[2017-02-25 12:00] VITALS: BP 117/84
[2017-02-25 18:06] VITALS: BP 96/68
[2017-02-25 19:50] VITALS: BP 123/65
[2017-02-25] MEDS: DULOXETINE HCL 30 MG CAPSULE.DR GT SCH (21:06)
[2017-02-26 00:17] VITALS: BP 117/72
[2017-02-26] MEDS: IPRATROPIUM NEB FS 0.5 MG/2.5 ML AMPUL.NEB NEB SCH ×4 (01:30→19:52)
[2017-02-26] MEDS: ALBUTEROL HALF STRENGTH 1.25 MG/3 ML VIAL.NEB NEB SCH ×4 (01:30→19:52)
[2017-02-26] MEDS: LEVOTHYROXINE SODIUM 25 MCG TABLET GT SCH (05:24)
[2017-02-26 06:15] VITALS: BP 99/62
[2017-02-26 08:08] VITALS: BP 114/61
[2017-02-26] MEDS: ASCORBIC ACID 500 MG TABLET GT SCH (09:52)
[2017-02-26] MEDS: ZINC SULFATE 220 MG CAPSULE GT SCH (09:52)
[2017-02-26] MEDS: MECLIZINE HCL 12.5 MG TABLET GT SCH ×2 (09:52→21:18)
[2017-02-26] MEDS: ASPIRIN 81 MG TAB.CHEW GT SCH (09:52)
[2017-02-26] MEDS: CYANOCOBALAMIN 500 MCG TABLET GT SCH (09:52)
[2017-02-26] MEDS: ESOMEPRAZOLE MAGNESIUM 40 MG GT SCH ×2 (09:52→16:34)
[2017-02-26] MEDS: SENNOSIDES 8.6 MG TABLET GT SCH (09:52)
[2017-02-26] MEDS: POLYETHYLENE GLYCOL 3350 17 GM POWD.PACK GT SCH (09:52)
[2017-02-26] MEDS: FERROUS SULFATE - FOR SA ONLY 330 MG/7.5 ML UDC GT SCH (09:52)
[2017-02-26] MEDS: HYDROGEN PEROXIDE 480 ML BOTTLE TP SCH ×2 (09:53→21:18)
[2017-02-26] MEDS: ENOXAPARIN SODIUM 40 MG/0.4 ML DISP.SYRIN SQ SCH (09:53)
[2017-02-26] MEDS: Z GUARD REMEDY 4 OZ OINT TP SCH ×2 (09:53→21:18)
[2017-02-26 12:20] VITALS: BP 117/72
[2017-02-26 18:31] VITALS: BP 116/64
[2017-02-26 20:07] VITALS: BP 104/60
[2017-02-26] MEDS: DULOXETINE HCL 30 MG CAPSULE.DR GT SCH (21:18)
[2017-02-27] VITALS: BP 122/68
[2017-02-27] MEDS: IPRATROPIUM NEB FS 0.5 MG/2.5 ML AMPUL.NEB NEB SCH ×4 (00:42→19:54)
[2017-02-27] MEDS: ALBUTEROL HALF STRENGTH 1.25 MG/3 ML VIAL.NEB NEB SCH ×4 (00:43→19:54)
[2017-02-27] MEDS: LEVOTHYROXINE SODIUM 25 MCG TABLET GT SCH (06:16)
[2017-02-27 06:35] VITALS: BP 108/72
[2017-02-27 07:57] VITALS: BP 119/62
[2017-02-27] MEDS: ENOXAPARIN SODIUM 40 MG/0.4 ML DISP.SYRIN SQ SCH (09:00)
[2017-02-27] MEDS: ESOMEPRAZOLE MAGNESIUM 40 MG GT SCH ×2 (09:00→17:11)
[2017-02-27] MEDS: FERROUS SULFATE - FOR SA ONLY 330 MG/7.5 ML UDC GT SCH (09:00)
[2017-02-27] MEDS: CYANOCOBALAMIN 500 MCG TABLET GT SCH (09:00)
[2017-02-27] MEDS: SENNOSIDES 8.6 MG TABLET GT SCH (09:00)
[2017-02-27] MEDS: POLYETHYLENE GLYCOL 3350 17 GM POWD.PACK GT SCH (09:00)
[2017-02-27] MEDS: HYDROGEN PEROXIDE 480 ML BOTTLE TP SCH ×2 (09:00→20:12)
[2017-02-27] MEDS: ASCORBIC ACID 500 MG TABLET GT SCH (09:00)
[2017-02-27] MEDS: Z GUARD REMEDY 4 OZ OINT TP SCH ×2 (09:00→20:13)
[2017-02-27] MEDS: ASPIRIN 81 MG TAB.CHEW GT SCH (09:00)
[2017-02-27] MEDS: MECLIZINE HCL 12.5 MG TABLET GT SCH ×2 (09:00→20:12)
[2017-02-27] MEDS: ZINC SULFATE 220 MG CAPSULE GT SCH (09:00)
[2017-02-27] MEDS: FIBERSOURCE HN 1,000 ML BOTTLE GT PRN (14:52)
[2017-02-27 18:42] VITALS: BP 118/68
[2017-02-27 20:38] VITALS: BP 114/72
[2017-02-27] MEDS: DULOXETINE HCL 30 MG CAPSULE.DR GT SCH (21:48)
[2017-02-28 00:29] VITALS: BP 118/70
[2017-02-28] MEDS: ALBUTEROL HALF STRENGTH 1.25 MG/3 ML VIAL.NEB NEB SCH ×4 (02:13→19:30)
[2017-02-28] MEDS: IPRATROPIUM NEB FS 0.5 MG/2.5 ML AMPUL.NEB NEB SCH ×4 (02:13→19:30)
[2017-02-28] MEDS: LEVOTHYROXINE SODIUM 25 MCG TABLET GT SCH (05:33)
[2017-02-28 06:03] VITALS: BP 120/66
[2017-02-28] MEDS: FIBERSOURCE HN 1,000 ML BOTTLE GT PRN (06:34)
--- NOTE | 2017-02-28 07:05 | NUR ---
RT PATIENT REC'D TRACHED ON [facility] VENT WITH SETTINGS SET PER MD ELENI NINA. VENT ALARMS CHECKED + AUDIBLE. CUFF PRESSURE CHECKED RAND TACKER. TRACH SECURE AND IN PROPER POSITION VIA TRACH TIES. PATIENT APPEARS COMFORTABLE AND IN NO DISTRESS AT THIS TIME. PATIENT SUCTIONED WITH MOD AMT OF PALE SEMITHICK SECRETIONS. B/S DIM COARSE. VENT PLUGGED INTO RED OUTLET. AMBU BAG AT [facility]. CONTINUE CURRENT PLAN OF RESPIRATORY CARE. Addendum: 02/28/17 at 1024 by RUDDY ISSA RT Amended: Links added.
[2017-02-28 08:06] VITALS: BP 128/66
[2017-02-28] MEDS: MECLIZINE HCL 12.5 MG TABLET GT SCH ×2 (09:00→20:39)
[2017-02-28] MEDS: ASPIRIN 81 MG TAB.CHEW GT SCH (09:00)
[2017-02-28] MEDS: ENOXAPARIN SODIUM 40 MG/0.4 ML DISP.SYRIN SQ SCH (09:00)
[2017-02-28] MEDS: HYDROGEN PEROXIDE 480 ML BOTTLE TP SCH ×2 (09:00→20:39)
[2017-02-28] MEDS: CYANOCOBALAMIN 500 MCG TABLET GT SCH (09:00)
[2017-02-28] MEDS: FERROUS SULFATE - FOR SA ONLY 330 MG/7.5 ML UDC GT SCH (09:00)
[2017-02-28] MEDS: SENNOSIDES 8.6 MG TABLET GT SCH (09:00)
[2017-02-28] MEDS: Z GUARD REMEDY 4 OZ OINT TP SCH ×2 (09:00→20:39)
[2017-02-28] MEDS: ZINC SULFATE 220 MG CAPSULE GT SCH (09:00)
[2017-02-28] MEDS: POLYETHYLENE GLYCOL 3350 17 GM POWD.PACK GT SCH (09:00)
[2017-02-28] MEDS: ASCORBIC ACID 500 MG TABLET GT SCH (09:00)
[2017-02-28] MEDS: ESOMEPRAZOLE MAGNESIUM 40 MG GT SCH ×2 (09:00→17:00)
[2017-02-28 19:18] VITALS: BP 116/68
[2017-02-28 20:38] VITALS: BP 127/60
[2017-02-28] MEDS: DULOXETINE HCL 30 MG CAPSULE.DR GT SCH (21:44)
[2017-03-01] MEDS: FIBERSOURCE HN 1,000 ML BOTTLE GT PRN ×2 (00:09→18:27)
[2017-03-01 00:12] VITALS: BP 130/70
[2017-03-01] MEDS: ALBUTEROL HALF STRENGTH 1.25 MG/3 ML VIAL.NEB NEB SCH ×4 (02:00→20:05)
[2017-03-01] MEDS: IPRATROPIUM NEB FS 0.5 MG/2.5 ML AMPUL.NEB NEB SCH ×4 (02:00→20:05)
[2017-03-01] MEDS: LEVOTHYROXINE SODIUM 25 MCG TABLET GT SCH (05:57)
[2017-03-01 06:13] VITALS: BP 124/68
[2017-03-01 07:47] VITALS: BP 135/76
[2017-03-01] MEDS: POLYETHYLENE GLYCOL 3350 17 GM POWD.PACK GT SCH (08:53)
[2017-03-01] MEDS: FERROUS SULFATE - FOR SA ONLY 330 MG/7.5 ML UDC GT SCH (08:53)
[2017-03-01] MEDS: MECLIZINE HCL 12.5 MG TABLET GT SCH ×2 (08:53→20:24)
[2017-03-01] MEDS: ASCORBIC ACID 500 MG TABLET GT SCH (08:53)
[2017-03-01] MEDS: CYANOCOBALAMIN 500 MCG TABLET GT SCH (08:53)
[2017-03-01] MEDS: SENNOSIDES 8.6 MG TABLET GT SCH (08:53)
[2017-03-01] MEDS: ZINC SULFATE 220 MG CAPSULE GT SCH (08:53)
[2017-03-01] MEDS: ASPIRIN 81 MG TAB.CHEW GT SCH (08:53)
[2017-03-01] MEDS: ESOMEPRAZOLE MAGNESIUM 40 MG GT SCH ×2 (08:53→17:00)
[2017-03-01] MEDS: HYDROGEN PEROXIDE 480 ML BOTTLE TP SCH ×2 (08:55→20:24)
[2017-03-01] MEDS: Z GUARD REMEDY 4 OZ OINT TP SCH ×2 (08:55→20:25)
[2017-03-01] MEDS: ENOXAPARIN SODIUM 40 MG/0.4 ML DISP.SYRIN SQ SCH (08:55)
[2017-03-01 12:00] VITALS: BP 122/60
[2017-03-01 19:01] VITALS: BP 124/62
[2017-03-01 19:57] VITALS: BP 123/70
[2017-03-01] MEDS: DULOXETINE HCL 30 MG CAPSULE.DR GT SCH (21:45)
[2017-03-02 00:27] VITALS: BP 118/66
[2017-03-02] MEDS: IPRATROPIUM NEB FS 0.5 MG/2.5 ML AMPUL.NEB NEB SCH ×4 (01:49→20:05)
[2017-03-02] MEDS: ALBUTEROL HALF STRENGTH 1.25 MG/3 ML VIAL.NEB NEB SCH ×4 (01:49→20:05)
[2017-03-02] MEDS: LEVOTHYROXINE SODIUM 25 MCG TABLET GT SCH (05:47)
[2017-03-02 06:20] VITALS: BP 122/64
[2017-03-02 07:32] VITALS: BP 128/73
[2017-03-02] MEDS: ASCORBIC ACID 500 MG TABLET GT SCH (08:48)
[2017-03-02] MEDS: ZINC SULFATE 220 MG CAPSULE GT SCH (08:48)
[2017-03-02] MEDS: CYANOCOBALAMIN 500 MCG TABLET GT SCH (08:48)
[2017-03-02] MEDS: POLYETHYLENE GLYCOL 3350 17 GM POWD.PACK GT SCH (08:48)
[2017-03-02] MEDS: ESOMEPRAZOLE MAGNESIUM 40 MG GT SCH ×2 (08:48→17:00)
[2017-03-02] MEDS: FERROUS SULFATE - FOR SA ONLY 330 MG/7.5 ML UDC GT SCH (08:48)
[2017-03-02] MEDS: ASPIRIN 81 MG TAB.CHEW GT SCH (08:48)
[2017-03-02] MEDS: SENNOSIDES 8.6 MG TABLET GT SCH (08:48)
[2017-03-02] MEDS: ENOXAPARIN SODIUM 40 MG/0.4 ML DISP.SYRIN SQ SCH (09:14)
[2017-03-02] MEDS: MECLIZINE HCL 12.5 MG TABLET GT SCH ×2 (09:14→21:29)
[2017-03-02] MEDS: HYDROGEN PEROXIDE 480 ML BOTTLE TP SCH ×2 (09:14→21:06)
[2017-03-02] MEDS: Z GUARD REMEDY 4 OZ OINT TP SCH ×2 (09:14→21:06)
[2017-03-02] MEDS: FIBERSOURCE HN 1,000 ML BOTTLE GT PRN (12:40)
[2017-03-02 12:52] VITALS: BP 128/73
[2017-03-02 18:27] VITALS: BP 122/70
[2017-03-02 20:20] VITALS: BP 132/71
[2017-03-02] MEDS: DULOXETINE HCL 30 MG CAPSULE.DR GT SCH (21:06)
[2017-03-03 00:07] VITALS: BP 117/56
[2017-03-03] MEDS: ALBUTEROL HALF STRENGTH 1.25 MG/3 ML VIAL.NEB NEB SCH ×4 (01:25→20:07)
[2017-03-03] MEDS: IPRATROPIUM NEB FS 0.5 MG/2.5 ML AMPUL.NEB NEB SCH ×4 (01:25→20:07)
[2017-03-03] MEDS: LEVOTHYROXINE SODIUM 25 MCG TABLET GT SCH (05:11)
[2017-03-03 06:23] VITALS: BP 120/72
[2017-03-03 07:30] VITALS: BP 125/72
[2017-03-03] MEDS: MECLIZINE HCL 12.5 MG TABLET GT SCH ×2 (09:41→21:06)
[2017-03-03] MEDS: ASPIRIN 81 MG TAB.CHEW GT SCH (09:41)
[2017-03-03] MEDS: FERROUS SULFATE - FOR SA ONLY 330 MG/7.5 ML UDC GT SCH (09:41)
[2017-03-03] MEDS: ESOMEPRAZOLE MAGNESIUM 40 MG GT SCH ×2 (09:42→17:30)
[2017-03-03] MEDS: SENNOSIDES 8.6 MG TABLET GT SCH (09:42)
[2017-03-03] MEDS: ASCORBIC ACID 500 MG TABLET GT SCH (09:42)
[2017-03-03] MEDS: ZINC SULFATE 220 MG CAPSULE GT SCH (09:42)
[2017-03-03] MEDS: POLYETHYLENE GLYCOL 3350 17 GM POWD.PACK GT SCH (09:42)
[2017-03-03] MEDS: CYANOCOBALAMIN 500 MCG TABLET GT SCH (09:42)
[2017-03-03] MEDS: Z GUARD REMEDY 4 OZ OINT TP SCH ×2 (09:43→21:06)
[2017-03-03] MEDS: HYDROGEN PEROXIDE 480 ML BOTTLE TP SCH ×2 (09:43→21:06)
[2017-03-03] MEDS: FIBERSOURCE HN 1,000 ML BOTTLE GT PRN (09:44)
[2017-03-03] MEDS: ENOXAPARIN SODIUM 40 MG/0.4 ML DISP.SYRIN SQ SCH (09:44)
[2017-03-03 12:00] VITALS: BP 126/70
[2017-03-03] MEDS: CLONIDINE HCL 0.1 MG TABLET GT PRN ×2 (12:27→17:31)
[2017-03-03 18:00] VITALS: BP 121/64
[2017-03-03 20:01] VITALS: BP 120/67
[2017-03-03] MEDS: DULOXETINE HCL 30 MG CAPSULE.DR GT SCH (21:06)
[2017-03-04] VITALS (7 sets, daily range): BP systolic 108–136; BP diastolic 59–76
[2017-03-04] MEDS: IPRATROPIUM NEB FS 0.5 MG/2.5 ML AMPUL.NEB NEB SCH ×4 (01:27→19:49)
[2017-03-04] MEDS: ALBUTEROL HALF STRENGTH 1.25 MG/3 ML VIAL.NEB NEB SCH ×4 (01:27→19:49)
[2017-03-04] MEDS: LEVOTHYROXINE SODIUM 25 MCG TABLET GT SCH (05:08)
[2017-03-04] MEDS: FIBERSOURCE HN 1,000 ML BOTTLE GT PRN ×2 (05:08→23:34)
[2017-03-04] MEDS: CYANOCOBALAMIN 500 MCG TABLET GT SCH (09:00)
[2017-03-04] MEDS: Z GUARD REMEDY 4 OZ OINT TP SCH ×2 (09:00→21:15)
[2017-03-04] MEDS: HYDROGEN PEROXIDE 480 ML BOTTLE TP SCH ×2 (09:00→21:15)
[2017-03-04] MEDS: POLYETHYLENE GLYCOL 3350 17 GM POWD.PACK GT SCH (09:55)
[2017-03-04] MEDS: ZINC SULFATE 220 MG CAPSULE GT SCH (09:55)
[2017-03-04] MEDS: ESOMEPRAZOLE MAGNESIUM 40 MG GT SCH ×2 (09:55→17:31)
[2017-03-04] MEDS: FERROUS SULFATE - FOR SA ONLY 330 MG/7.5 ML UDC GT SCH (09:55)
[2017-03-04] MEDS: SENNOSIDES 8.6 MG TABLET GT SCH (09:55)
[2017-03-04] MEDS: ASPIRIN 81 MG TAB.CHEW GT SCH (09:55)
[2017-03-04] MEDS: MECLIZINE HCL 12.5 MG TABLET GT SCH ×2 (09:55→21:15)
[2017-03-04] MEDS: ASCORBIC ACID 500 MG TABLET GT SCH (09:55)
[2017-03-04] MEDS: ENOXAPARIN SODIUM 40 MG/0.4 ML DISP.SYRIN SQ SCH (10:00)
[2017-03-04] MEDS: ONDANSETRON 4 MG TAB.RAPDIS GT PRN (11:09)
[2017-03-04] MEDS: CLONIDINE HCL 0.1 MG TABLET GT PRN ×3 (12:12→23:19)
[2017-03-04] MEDS: DULOXETINE HCL 30 MG CAPSULE.DR GT SCH (21:15)
[2017-03-05 00:03] VITALS: BP 124/73
[2017-03-05] MEDS: IPRATROPIUM NEB FS 0.5 MG/2.5 ML AMPUL.NEB NEB SCH ×4 (01:20→19:48)
[2017-03-05] MEDS: ALBUTEROL HALF STRENGTH 1.25 MG/3 ML VIAL.NEB NEB SCH ×4 (01:21→19:48)
[2017-03-05] MEDS: LEVOTHYROXINE SODIUM 25 MCG TABLET GT SCH (05:08)
[2017-03-05 06:03] VITALS: BP 130/70
[2017-03-05 08:29] VITALS: BP 102/74
[2017-03-05] MEDS: ESOMEPRAZOLE MAGNESIUM 40 MG GT SCH ×2 (10:24→16:45)
[2017-03-05] MEDS: MECLIZINE HCL 12.5 MG TABLET GT SCH ×2 (10:24→21:21)
[2017-03-05] MEDS: ASPIRIN 81 MG TAB.CHEW GT SCH (10:24)
[2017-03-05] MEDS: POLYETHYLENE GLYCOL 3350 17 GM POWD.PACK GT SCH (10:24)
[2017-03-05] MEDS: FERROUS SULFATE - FOR SA ONLY 330 MG/7.5 ML UDC GT SCH (10:24)
[2017-03-05] MEDS: CYANOCOBALAMIN 500 MCG TABLET GT SCH (10:25)
[2017-03-05] MEDS: SENNOSIDES 8.6 MG TABLET GT SCH (10:25)
[2017-03-05] MEDS: ENOXAPARIN SODIUM 40 MG/0.4 ML DISP.SYRIN SQ SCH (10:26)
[2017-03-05] MEDS: ASCORBIC ACID 500 MG TABLET GT SCH (10:26)
[2017-03-05] MEDS: ZINC SULFATE 220 MG CAPSULE GT SCH (10:26)
[2017-03-05] MEDS: HYDROGEN PEROXIDE 480 ML BOTTLE TP SCH ×2 (10:27→21:21)
[2017-03-05] MEDS: Z GUARD REMEDY 4 OZ OINT TP SCH ×2 (10:27→21:21)
[2017-03-05 17:59] VITALS: BP 128/69
[2017-03-05 18:53] VITALS: BP 128/69
[2017-03-05 19:25] VITALS: BP 120/45
[2017-03-05] MEDS: DULOXETINE HCL 30 MG CAPSULE.DR GT SCH (21:21)
[2017-03-05] MEDS: FIBERSOURCE HN 1,000 ML BOTTLE GT PRN (21:22)
[2017-03-06 00:28] VITALS: BP 124/62
[2017-03-06] MEDS: ALBUTEROL HALF STRENGTH 1.25 MG/3 ML VIAL.NEB NEB SCH ×4 (01:45→20:06)
[2017-03-06] MEDS: IPRATROPIUM NEB FS 0.5 MG/2.5 ML AMPUL.NEB NEB SCH ×4 (01:45→20:06)
[2017-03-06] MEDS: LEVOTHYROXINE SODIUM 25 MCG TABLET GT SCH (05:30)
[2017-03-06 06:09] VITALS: BP 118/74
[2017-03-06 07:33] VITALS: BP 134/76
[2017-03-06] MEDS: ZINC SULFATE 220 MG CAPSULE GT SCH (09:00)
[2017-03-06] MEDS: POLYETHYLENE GLYCOL 3350 17 GM POWD.PACK GT SCH (09:00)
[2017-03-06] MEDS: ENOXAPARIN SODIUM 40 MG/0.4 ML DISP.SYRIN SQ SCH (09:00)
[2017-03-06] MEDS: ESOMEPRAZOLE MAGNESIUM 40 MG GT SCH ×2 (09:00→16:46)
[2017-03-06] MEDS: CYANOCOBALAMIN 500 MCG TABLET GT SCH (09:00)
[2017-03-06] MEDS: ASCORBIC ACID 500 MG TABLET GT SCH (09:00)
[2017-03-06] MEDS: MECLIZINE HCL 12.5 MG TABLET GT SCH ×2 (09:00→20:20)
[2017-03-06] MEDS: FERROUS SULFATE - FOR SA ONLY 330 MG/7.5 ML UDC GT SCH (09:00)
[2017-03-06] MEDS: Z GUARD REMEDY 4 OZ OINT TP SCH ×2 (09:00→20:20)
[2017-03-06] MEDS: HYDROGEN PEROXIDE 480 ML BOTTLE TP SCH ×2 (09:00→20:20)
[2017-03-06] MEDS: SENNOSIDES 8.6 MG TABLET GT SCH (09:00)
[2017-03-06] MEDS: ASPIRIN 81 MG TAB.CHEW GT SCH (09:00)
[2017-03-06 18:24] VITALS: BP 124/69
[2017-03-06 19:50] VITALS: BP 129/76
[2017-03-06] MEDS: DULOXETINE HCL 30 MG CAPSULE.DR GT SCH (21:36)
[2017-03-07 00:47] VITALS: BP 120/66
[2017-03-07] MEDS: ALBUTEROL HALF STRENGTH 1.25 MG/3 ML VIAL.NEB NEB SCH ×4 (02:00→19:51)
[2017-03-07] MEDS: IPRATROPIUM NEB FS 0.5 MG/2.5 ML AMPUL.NEB NEB SCH ×4 (02:00→19:51)
[2017-03-07] MEDS: LEVOTHYROXINE SODIUM 25 MCG TABLET GT SCH (05:53)
[2017-03-07 06:10] VITALS: BP 126/62
[2017-03-07 07:37] VITALS: BP 127/76
[2017-03-07] MEDS: MECLIZINE HCL 12.5 MG TABLET GT SCH ×2 (09:00→20:18)
[2017-03-07] MEDS: ENOXAPARIN SODIUM 40 MG/0.4 ML DISP.SYRIN SQ SCH (09:00)
[2017-03-07] MEDS: ZINC SULFATE 220 MG CAPSULE GT SCH (09:00)
[2017-03-07] MEDS: Z GUARD REMEDY 4 OZ OINT TP SCH ×2 (09:00→21:10)
[2017-03-07] MEDS: ESOMEPRAZOLE MAGNESIUM 40 MG GT SCH ×2 (09:00→17:08)
[2017-03-07] MEDS: POLYETHYLENE GLYCOL 3350 17 GM POWD.PACK GT SCH (09:00)
[2017-03-07] MEDS: FERROUS SULFATE - FOR SA ONLY 330 MG/7.5 ML UDC GT SCH (09:00)
[2017-03-07] MEDS: SENNOSIDES 8.6 MG TABLET GT SCH (09:00)
[2017-03-07] MEDS: HYDROGEN PEROXIDE 480 ML BOTTLE TP SCH ×2 (09:00→21:09)
[2017-03-07] MEDS: CYANOCOBALAMIN 500 MCG TABLET GT SCH (09:00)
[2017-03-07] MEDS: ASCORBIC ACID 500 MG TABLET GT SCH (09:00)
[2017-03-07] MEDS: ASPIRIN 81 MG TAB.CHEW GT SCH (09:00)
[2017-03-07 17:09] VITALS: BP 127/76
[2017-03-07 19:01] VITALS: BP 122/70
[2017-03-07 19:38] VITALS: BP 130/63
[2017-03-07] MEDS: DULOXETINE HCL 30 MG CAPSULE.DR GT SCH (21:10)
[2017-03-08] VITALS: BP 124/60
[2017-03-08] MEDS: IPRATROPIUM NEB FS 0.5 MG/2.5 ML AMPUL.NEB NEB SCH ×4 (01:57→20:06)
[2017-03-08] MEDS: ALBUTEROL HALF STRENGTH 1.25 MG/3 ML VIAL.NEB NEB SCH ×4 (01:57→20:06)
[2017-03-08] MEDS: LEVOTHYROXINE SODIUM 25 MCG TABLET GT SCH (05:56)
[2017-03-08 06:11] VITALS: BP 122/62
[2017-03-08 07:40] VITALS: BP 134/71
[2017-03-08] MEDS: ASPIRIN 81 MG TAB.CHEW GT SCH (08:46)
[2017-03-08] MEDS: FERROUS SULFATE - FOR SA ONLY 330 MG/7.5 ML UDC GT SCH (08:46)
[2017-03-08] MEDS: POLYETHYLENE GLYCOL 3350 17 GM POWD.PACK GT SCH (08:46)
[2017-03-08] MEDS: MECLIZINE HCL 12.5 MG TABLET GT SCH ×2 (08:46→20:31)
[2017-03-08] MEDS: ESOMEPRAZOLE MAGNESIUM 40 MG GT SCH ×2 (08:47→16:39)
[2017-03-08] MEDS: CYANOCOBALAMIN 500 MCG TABLET GT SCH (08:49)
[2017-03-08] MEDS: SENNOSIDES 8.6 MG TABLET GT SCH (08:49)
[2017-03-08] MEDS: ASCORBIC ACID 500 MG TABLET GT SCH (08:50)
[2017-03-08] MEDS: ZINC SULFATE 220 MG CAPSULE GT SCH (08:50)
[2017-03-08] MEDS: ENOXAPARIN SODIUM 40 MG/0.4 ML DISP.SYRIN SQ SCH (08:51)
[2017-03-08] MEDS: HYDROGEN PEROXIDE 480 ML BOTTLE TP SCH ×2 (08:51→20:31)
[2017-03-08] MEDS: Z GUARD REMEDY 4 OZ OINT TP SCH ×2 (08:51→20:31)
[2017-03-08 15:35] VITALS: BP 134/71
[2017-03-08 18:16] VITALS: BP 118/68
[2017-03-08 20:00] VITALS: BP 118/59
[2017-03-08] MEDS: DULOXETINE HCL 30 MG CAPSULE.DR GT SCH (21:41)
[2017-03-08] MEDS: FIBERSOURCE HN 1,000 ML BOTTLE GT PRN (23:17)
[2017-03-09 00:48] VITALS: BP 118/60
[2017-03-09] MEDS: ALBUTEROL HALF STRENGTH 1.25 MG/3 ML VIAL.NEB NEB SCH ×4 (01:53→20:27)
[2017-03-09] MEDS: IPRATROPIUM NEB FS 0.5 MG/2.5 ML AMPUL.NEB NEB SCH ×4 (01:53→20:27)
[2017-03-09] MEDS: LEVOTHYROXINE SODIUM 25 MCG TABLET GT SCH (05:11)
[2017-03-09 06:08] VITALS: BP 124/60
[2017-03-09 07:30] VITALS: BP 122/70
[2017-03-09] MEDS: MECLIZINE HCL 12.5 MG TABLET GT SCH ×2 (09:00→21:42)
[2017-03-09] MEDS: ASCORBIC ACID 500 MG TABLET GT SCH (09:22)
[2017-03-09] MEDS: ESOMEPRAZOLE MAGNESIUM 40 MG GT SCH ×2 (09:22→16:30)
[2017-03-09] MEDS: FERROUS SULFATE - FOR SA ONLY 330 MG/7.5 ML UDC GT SCH (09:22)
[2017-03-09] MEDS: SENNOSIDES 8.6 MG TABLET GT SCH (09:22)
[2017-03-09] MEDS: POLYETHYLENE GLYCOL 3350 17 GM POWD.PACK GT SCH (09:22)
[2017-03-09] MEDS: CYANOCOBALAMIN 500 MCG TABLET GT SCH (09:22)
[2017-03-09] MEDS: ZINC SULFATE 220 MG CAPSULE GT SCH (09:22)
[2017-03-09] MEDS: ASPIRIN 81 MG TAB.CHEW GT SCH (09:22)
[2017-03-09] MEDS: ENOXAPARIN SODIUM 40 MG/0.4 ML DISP.SYRIN SQ SCH (09:27)
[2017-03-09] MEDS: HYDROGEN PEROXIDE 480 ML BOTTLE TP SCH ×2 (09:27→21:42)
[2017-03-09] MEDS: Z GUARD REMEDY 4 OZ OINT TP SCH ×2 (09:27→21:42)
[2017-03-09 15:00] VITALS: BP 122/70
--- NOTE | 2017-03-09 15:00 | NUR ---
Seen by Deneen Hankins NP with no new order.
[2017-03-09 18:23] VITALS: BP 120/68
[2017-03-09 20:01] VITALS: BP 113/63
[2017-03-09] MEDS: DULOXETINE HCL 30 MG CAPSULE.DR GT SCH (21:42)
[2017-03-10 00:02] VITALS: BP 122/61
[2017-03-10] MEDS: ALBUTEROL HALF STRENGTH 1.25 MG/3 ML VIAL.NEB NEB SCH ×4 (01:34→20:16)
[2017-03-10] MEDS: IPRATROPIUM NEB FS 0.5 MG/2.5 ML AMPUL.NEB NEB SCH ×4 (01:34→20:16)
[2017-03-10] MEDS: LEVOTHYROXINE SODIUM 25 MCG TABLET GT SCH (06:03)
[2017-03-10 06:15] VITALS: BP 127/68
[2017-03-10] MEDS: FIBERSOURCE HN 1,000 ML BOTTLE GT PRN ×2 (06:39→23:54)
[2017-03-10 07:59] VITALS: BP 121/70
[2017-03-10] MEDS: ASCORBIC ACID 500 MG TABLET GT SCH (09:33)
[2017-03-10] MEDS: MECLIZINE HCL 12.5 MG TABLET GT SCH ×2 (09:33→20:59)
[2017-03-10] MEDS: CYANOCOBALAMIN 500 MCG TABLET GT SCH (09:33)
[2017-03-10] MEDS: ESOMEPRAZOLE MAGNESIUM 40 MG GT SCH ×2 (09:33→16:22)
[2017-03-10] MEDS: ASPIRIN 81 MG TAB.CHEW GT SCH (09:33)
[2017-03-10] MEDS: POLYETHYLENE GLYCOL 3350 17 GM POWD.PACK GT SCH (09:33)
[2017-03-10] MEDS: ZINC SULFATE 220 MG CAPSULE GT SCH (09:33)
[2017-03-10] MEDS: SENNOSIDES 8.6 MG TABLET GT SCH (09:33)
[2017-03-10] MEDS: FERROUS SULFATE - FOR SA ONLY 330 MG/7.5 ML UDC GT SCH (09:33)
[2017-03-10] MEDS: HYDROGEN PEROXIDE 480 ML BOTTLE TP SCH ×2 (09:34→20:59)
[2017-03-10] MEDS: ENOXAPARIN SODIUM 40 MG/0.4 ML DISP.SYRIN SQ SCH (09:34)
[2017-03-10] MEDS: Z GUARD REMEDY 4 OZ OINT TP SCH ×2 (09:34→20:59)
[2017-03-10 14:01] VITALS: BP 118/60
--- NOTE | 2017-03-10 15:10 | NUR ---
INTERDISCIPLINARY PLAN OF CARE CONFERENCE was held today. Resident's daughter unable to attend. New orders were reviewed. Dr. John and the interdisciplinary team reviewed the current plan of care in detail. Resident has chapped lower lip and order to apply ointment for 14 days. No other changes were noted.
[2017-03-10 18:29] VITALS: BP 121/66
[2017-03-10 19:57] VITALS: BP 119/66
[2017-03-10] MEDS: DULOXETINE HCL 30 MG CAPSULE.DR GT SCH (21:00)
[2017-03-11 00:15] VITALS: BP 121/64
[2017-03-11] MEDS: ONDANSETRON 4 MG TAB.RAPDIS GT PRN (00:45)
[2017-03-11] MEDS: IPRATROPIUM NEB FS 0.5 MG/2.5 ML AMPUL.NEB NEB SCH ×4 (01:49→19:29)
[2017-03-11] MEDS: ALBUTEROL HALF STRENGTH 1.25 MG/3 ML VIAL.NEB NEB SCH ×4 (01:49→19:29)
[2017-03-11] MEDS: ACETAMINOPHEN 650 MG/20 ML UDC- FOR SA PATIENTS ONLY GT PRN (03:43)
[2017-03-11] MEDS: LEVOTHYROXINE SODIUM 25 MCG TABLET GT SCH (05:38)
[2017-03-11 06:15] VITALS: BP 113/66
[2017-03-11 08:00] VITALS: BP 120/58
[2017-03-11] MEDS: CYANOCOBALAMIN 500 MCG TABLET GT SCH (09:36)
[2017-03-11] MEDS: FERROUS SULFATE - FOR SA ONLY 330 MG/7.5 ML UDC GT SCH (09:36)
[2017-03-11] MEDS: MECLIZINE HCL 12.5 MG TABLET GT SCH ×2 (09:36→21:37)
[2017-03-11] MEDS: POLYETHYLENE GLYCOL 3350 17 GM POWD.PACK GT SCH (09:36)
[2017-03-11] MEDS: ESOMEPRAZOLE MAGNESIUM 40 MG GT SCH ×2 (09:36→16:27)
[2017-03-11] MEDS: ASPIRIN 81 MG TAB.CHEW GT SCH (09:36)
[2017-03-11] MEDS: SENNOSIDES 8.6 MG TABLET GT SCH (09:36)
[2017-03-11] MEDS: ASCORBIC ACID 500 MG TABLET GT SCH (09:37)
[2017-03-11] MEDS: ZINC SULFATE 220 MG CAPSULE GT SCH (09:37)
[2017-03-11] MEDS: ENOXAPARIN SODIUM 40 MG/0.4 ML DISP.SYRIN SQ SCH (09:38)
[2017-03-11 12:00] VITALS: BP 118/60
[2017-03-11] MEDS: HYDROGEN PEROXIDE 480 ML BOTTLE TP SCH ×2 (16:00→21:37)
[2017-03-11] MEDS: Z GUARD REMEDY 4 OZ OINT TP SCH ×2 (16:00→21:37)
[2017-03-11 18:00] VITALS: BP 122/62
[2017-03-11] MEDS: FIBERSOURCE HN 1,000 ML BOTTLE GT PRN (18:37)
[2017-03-11 19:58] VITALS: BP 135/73
[2017-03-11] MEDS: DULOXETINE HCL 30 MG CAPSULE.DR GT SCH (21:37)
[2017-03-12 00:48] VITALS: BP 129/64
[2017-03-12] MEDS: ALBUTEROL HALF STRENGTH 1.25 MG/3 ML VIAL.NEB NEB SCH ×4 (00:59→20:22)
[2017-03-12] MEDS: IPRATROPIUM NEB FS 0.5 MG/2.5 ML AMPUL.NEB NEB SCH ×4 (00:59→20:22)
[2017-03-12 06:07] VITALS: BP 118/72
[2017-03-12] MEDS: LEVOTHYROXINE SODIUM 25 MCG TABLET GT SCH (06:07)
[2017-03-12 08:27] VITALS: BP 112/62
[2017-03-12] MEDS: Z GUARD REMEDY 4 OZ OINT TP SCH ×2 (09:00→21:17)
[2017-03-12] MEDS: HYDROGEN PEROXIDE 480 ML BOTTLE TP SCH ×2 (09:00→21:17)
[2017-03-12] MEDS: FERROUS SULFATE - FOR SA ONLY 330 MG/7.5 ML UDC GT SCH (09:00)
[2017-03-12] MEDS: MECLIZINE HCL 12.5 MG TABLET GT SCH ×2 (09:00→21:17)
[2017-03-12] MEDS: POLYETHYLENE GLYCOL 3350 17 GM POWD.PACK GT SCH (09:00)
[2017-03-12] MEDS: ZINC SULFATE 220 MG CAPSULE GT SCH (09:00)
[2017-03-12] MEDS: CYANOCOBALAMIN 500 MCG TABLET GT SCH (09:00)
[2017-03-12] MEDS: ASCORBIC ACID 500 MG TABLET GT SCH (09:00)
[2017-03-12] MEDS: SENNOSIDES 8.6 MG TABLET GT SCH (09:00)
[2017-03-12] MEDS: ESOMEPRAZOLE MAGNESIUM 40 MG GT SCH ×2 (09:00→17:18)
[2017-03-12] MEDS: ENOXAPARIN SODIUM 40 MG/0.4 ML DISP.SYRIN SQ SCH (09:00)
[2017-03-12] MEDS: ASPIRIN 81 MG TAB.CHEW GT SCH (09:00)
[2017-03-12 16:50] VITALS: BP 112/62
[2017-03-12 18:19] VITALS: BP 120/60
[2017-03-12 19:32] VITALS: BP 119/59
[2017-03-12] MEDS: DULOXETINE HCL 30 MG CAPSULE.DR GT SCH (21:17)
[2017-03-13 00:20] VITALS: BP 122/69
[2017-03-13] MEDS: ALBUTEROL HALF STRENGTH 1.25 MG/3 ML VIAL.NEB NEB SCH ×4 (02:01→19:53)
[2017-03-13] MEDS: IPRATROPIUM NEB FS 0.5 MG/2.5 ML AMPUL.NEB NEB SCH ×4 (02:01→19:53)
[2017-03-13] MEDS: LEVOTHYROXINE SODIUM 25 MCG TABLET GT SCH (05:47)
[2017-03-13 06:13] VITALS: BP 116/60
[2017-03-13 07:53] VITALS: BP 129/52
[2017-03-13] MEDS: ASCORBIC ACID 500 MG TABLET GT SCH (08:12)
[2017-03-13] MEDS: ASPIRIN 81 MG TAB.CHEW GT SCH (08:12)
[2017-03-13] MEDS: ZINC SULFATE 220 MG CAPSULE GT SCH (08:12)
[2017-03-13] MEDS: CYANOCOBALAMIN 500 MCG TABLET GT SCH (08:12)
[2017-03-13] MEDS: FERROUS SULFATE - FOR SA ONLY 330 MG/7.5 ML UDC GT SCH (08:12)
[2017-03-13] MEDS: MECLIZINE HCL 12.5 MG TABLET GT SCH ×2 (08:12→21:29)
[2017-03-13] MEDS: SENNOSIDES 8.6 MG TABLET GT SCH (08:12)
[2017-03-13] MEDS: ESOMEPRAZOLE MAGNESIUM 40 MG GT SCH ×2 (08:12→16:57)
[2017-03-13] MEDS: POLYETHYLENE GLYCOL 3350 17 GM POWD.PACK GT SCH (08:12)
[2017-03-13] MEDS: ENOXAPARIN SODIUM 40 MG/0.4 ML DISP.SYRIN SQ SCH (08:13)
[2017-03-13] MEDS: FIBERSOURCE HN 1,000 ML BOTTLE GT PRN (09:44)
[2017-03-13] MEDS: HYDROGEN PEROXIDE 480 ML BOTTLE TP SCH ×2 (10:45→21:29)
[2017-03-13] MEDS: Z GUARD REMEDY 4 OZ OINT TP SCH ×2 (10:45→21:29)
[2017-03-13 12:00] VITALS: BP 122/62
[2017-03-13 18:00] VITALS: BP 124/60
[2017-03-13 19:58] VITALS: BP 144/75
[2017-03-13] MEDS: DULOXETINE HCL 30 MG CAPSULE.DR GT SCH (21:29)
[2017-03-14 01:00] VITALS: BP 122/62
[2017-03-14] MEDS: IPRATROPIUM NEB FS 0.5 MG/2.5 ML AMPUL.NEB NEB SCH ×4 (01:16→21:09)
[2017-03-14] MEDS: ALBUTEROL HALF STRENGTH 1.25 MG/3 ML VIAL.NEB NEB SCH ×4 (01:16→19:30)
[2017-03-14] MEDS: LEVOTHYROXINE SODIUM 25 MCG TABLET GT SCH (05:41)
[2017-03-14 06:37] VITALS: BP 119/64
[2017-03-14 07:54] VITALS: BP 118/68
[2017-03-14] MEDS: MECLIZINE HCL 12.5 MG TABLET GT SCH ×2 (09:20→21:14)
[2017-03-14] MEDS: CYANOCOBALAMIN 500 MCG TABLET GT SCH (09:21)
[2017-03-14] MEDS: SENNOSIDES 8.6 MG TABLET GT SCH (09:21)
[2017-03-14] MEDS: ZINC SULFATE 220 MG CAPSULE GT SCH (09:21)
[2017-03-14] MEDS: ENOXAPARIN SODIUM 40 MG/0.4 ML DISP.SYRIN SQ SCH (09:21)
[2017-03-14] MEDS: POLYETHYLENE GLYCOL 3350 17 GM POWD.PACK GT SCH (09:21)
[2017-03-14] MEDS: FERROUS SULFATE - FOR SA ONLY 330 MG/7.5 ML UDC GT SCH (09:21)
[2017-03-14] MEDS: ESOMEPRAZOLE MAGNESIUM 40 MG GT SCH ×2 (09:21→17:52)
[2017-03-14] MEDS: ASCORBIC ACID 500 MG TABLET GT SCH (09:21)
[2017-03-14] MEDS: ASPIRIN 81 MG TAB.CHEW GT SCH (09:21)
--- NOTE | 2017-03-14 09:40 | NUR ---
Seen by Dr John with no new order.
[2017-03-14 12:00] VITALS: BP 122/62
[2017-03-14] MEDS: HYDROGEN PEROXIDE 480 ML BOTTLE TP SCH ×2 (14:00→21:14)
[2017-03-14] MEDS: Z GUARD REMEDY 4 OZ OINT TP SCH ×2 (14:00→21:28)
[2017-03-14] MEDS: ACETAMINOPHEN 650 MG/20 ML UDC- FOR SA PATIENTS ONLY GT PRN (18:05)
[2017-03-14 19:50] VITALS: BP 150/72
[2017-03-14] MEDS: DULOXETINE HCL 30 MG CAPSULE.DR GT SCH (21:14)
[2017-03-15] MEDS: IPRATROPIUM NEB FS 0.5 MG/2.5 ML AMPUL.NEB NEB SCH ×4 (01:47→19:58)
[2017-03-15] MEDS: ALBUTEROL HALF STRENGTH 1.25 MG/3 ML VIAL.NEB NEB SCH ×4 (01:48→19:58)
[2017-03-15 03:15] VITALS: BP 114/60
[2017-03-15] MEDS: LEVOTHYROXINE SODIUM 25 MCG TABLET GT SCH (05:28)
[2017-03-15 06:06] VITALS: BP 129/69
[2017-03-15 07:46] VITALS: BP 142/74
[2017-03-15] MEDS: ASPIRIN 81 MG TAB.CHEW GT SCH (09:26)
[2017-03-15] MEDS: MECLIZINE HCL 12.5 MG TABLET GT SCH ×2 (09:26→21:42)
[2017-03-15] MEDS: FERROUS SULFATE - FOR SA ONLY 330 MG/7.5 ML UDC GT SCH (09:27)
[2017-03-15] MEDS: POLYETHYLENE GLYCOL 3350 17 GM POWD.PACK GT SCH (09:27)
[2017-03-15] MEDS: SENNOSIDES 8.6 MG TABLET GT SCH (09:28)
[2017-03-15] MEDS: ESOMEPRAZOLE MAGNESIUM 40 MG GT SCH ×2 (09:28→17:30)
[2017-03-15] MEDS: CYANOCOBALAMIN 500 MCG TABLET GT SCH (09:28)
[2017-03-15] MEDS: ASCORBIC ACID 500 MG TABLET GT SCH (09:29)
[2017-03-15] MEDS: ZINC SULFATE 220 MG CAPSULE GT SCH (09:29)
[2017-03-15] MEDS: HYDROGEN PEROXIDE 480 ML BOTTLE TP SCH ×2 (09:29→21:42)
[2017-03-15] MEDS: Z GUARD REMEDY 4 OZ OINT TP SCH ×2 (09:29→21:42)
[2017-03-15] MEDS: ENOXAPARIN SODIUM 40 MG/0.4 ML DISP.SYRIN SQ SCH (09:53)
--- NOTE | 2017-03-15 17:59 | NUR ---
Seen and examined by Deneen Hankins NP for Dr. John, returning officer, NNO given.
[2017-03-15 18:00] VITALS: BP 142/74
[2017-03-15 20:07] VITALS: BP 110/58
[2017-03-15] MEDS: FIBERSOURCE HN 1,000 ML BOTTLE GT PRN (20:07)
[2017-03-15] MEDS: DULOXETINE HCL 30 MG CAPSULE.DR GT SCH (21:42)
[2017-03-16 00:10] VITALS: BP 121/73
[2017-03-16] MEDS: ALBUTEROL HALF STRENGTH 1.25 MG/3 ML VIAL.NEB NEB SCH ×4 (00:56→20:08)
[2017-03-16] MEDS: IPRATROPIUM NEB FS 0.5 MG/2.5 ML AMPUL.NEB NEB SCH ×4 (00:56→20:08)
[2017-03-16] MEDS: LEVOTHYROXINE SODIUM 25 MCG TABLET GT SCH (05:40)
[2017-03-16 06:07] VITALS: BP 111/62
[2017-03-16 07:52] VITALS: BP 125/58
[2017-03-16] MEDS: ASCORBIC ACID 500 MG TABLET GT SCH (09:42)
[2017-03-16] MEDS: ASPIRIN 81 MG TAB.CHEW GT SCH (09:42)
[2017-03-16] MEDS: POLYETHYLENE GLYCOL 3350 17 GM POWD.PACK GT SCH (09:42)
[2017-03-16] MEDS: SENNOSIDES 8.6 MG TABLET GT SCH (09:42)
[2017-03-16] MEDS: CYANOCOBALAMIN 500 MCG TABLET GT SCH (09:42)
[2017-03-16] MEDS: ESOMEPRAZOLE MAGNESIUM 40 MG GT SCH ×2 (09:42→17:49)
[2017-03-16] MEDS: FERROUS SULFATE - FOR SA ONLY 330 MG/7.5 ML UDC GT SCH (09:42)
[2017-03-16] MEDS: MECLIZINE HCL 12.5 MG TABLET GT SCH ×2 (09:42→21:16)
[2017-03-16] MEDS: ZINC SULFATE 220 MG CAPSULE GT SCH (09:42)
[2017-03-16] MEDS: ENOXAPARIN SODIUM 40 MG/0.4 ML DISP.SYRIN SQ SCH (09:43)
[2017-03-16] MEDS: HYDROGEN PEROXIDE 480 ML BOTTLE TP SCH ×2 (11:30→21:16)
[2017-03-16] MEDS: Z GUARD REMEDY 4 OZ OINT TP SCH ×2 (11:30→21:16)
[2017-03-16 12:00] VITALS: BP 118/62
[2017-03-16] MEDS: FIBERSOURCE HN 1,000 ML BOTTLE GT PRN (12:48)
[2017-03-16 18:00] VITALS: BP 122/70
[2017-03-16 19:44] VITALS: BP 111/68
[2017-03-16] MEDS: DULOXETINE HCL 30 MG CAPSULE.DR GT SCH (21:16)
[2017-03-17 00:13] VITALS: BP 113/62
[2017-03-17] MEDS: ALBUTEROL HALF STRENGTH 1.25 MG/3 ML VIAL.NEB NEB SCH ×4 (01:21→19:50)
[2017-03-17] MEDS: IPRATROPIUM NEB FS 0.5 MG/2.5 ML AMPUL.NEB NEB SCH ×4 (01:21→19:50)
[2017-03-17] MEDS: FIBERSOURCE HN 1,000 ML BOTTLE GT PRN ×2 (05:42→21:44)
[2017-03-17] MEDS: LEVOTHYROXINE SODIUM 25 MCG TABLET GT SCH (05:42)
[2017-03-17 06:10] VITALS: BP 113/71
[2017-03-17 07:42] VITALS: BP 109/73
[2017-03-17] MEDS: ESOMEPRAZOLE MAGNESIUM 40 MG GT SCH ×2 (09:00→17:15)
[2017-03-17] MEDS: MECLIZINE HCL 12.5 MG TABLET GT SCH ×2 (09:04→21:43)
[2017-03-17] MEDS: ASCORBIC ACID 500 MG TABLET GT SCH (09:05)
[2017-03-17] MEDS: POLYETHYLENE GLYCOL 3350 17 GM POWD.PACK GT SCH (09:05)
[2017-03-17] MEDS: ZINC SULFATE 220 MG CAPSULE GT SCH (09:05)
[2017-03-17] MEDS: SENNOSIDES 8.6 MG TABLET GT SCH (09:05)
[2017-03-17] MEDS: CYANOCOBALAMIN 500 MCG TABLET GT SCH (09:05)
[2017-03-17] MEDS: ASPIRIN 81 MG TAB.CHEW GT SCH (09:05)
[2017-03-17] MEDS: FERROUS SULFATE - FOR SA ONLY 330 MG/7.5 ML UDC GT SCH (09:05)
[2017-03-17] MEDS: ENOXAPARIN SODIUM 40 MG/0.4 ML DISP.SYRIN SQ SCH (09:06)
[2017-03-17] MEDS: Z GUARD REMEDY 4 OZ OINT TP SCH ×2 (09:06→21:43)
[2017-03-17] MEDS: HYDROGEN PEROXIDE 480 ML BOTTLE TP SCH ×2 (09:06→21:43)
[2017-03-17 12:00] VITALS: BP 110/60
[2017-03-17] MEDS: CLONIDINE HCL 0.1 MG TABLET GT PRN (17:15)
[2017-03-17 18:00] VITALS: BP 123/60
[2017-03-17 19:37] VITALS: BP 115/55
[2017-03-17] MEDS: DULOXETINE HCL 30 MG CAPSULE.DR GT SCH (21:43)
[2017-03-17] MEDS: ONDANSETRON 4 MG TAB.RAPDIS GT PRN (21:44)
[2017-03-18 00:30] VITALS: BP 123/66
[2017-03-18] MEDS: IPRATROPIUM NEB FS 0.5 MG/2.5 ML AMPUL.NEB NEB SCH ×4 (00:58→19:12)
[2017-03-18] MEDS: ALBUTEROL HALF STRENGTH 1.25 MG/3 ML VIAL.NEB NEB SCH ×4 (00:58→19:12)
[2017-03-18] MEDS: LEVOTHYROXINE SODIUM 25 MCG TABLET GT SCH (05:19)
[2017-03-18 06:25] VITALS: BP 114/70
[2017-03-18 07:36] VITALS: BP 116/70
[2017-03-18] MEDS: MECLIZINE HCL 12.5 MG TABLET GT SCH ×2 (08:48→21:00)
[2017-03-18] MEDS: FERROUS SULFATE - FOR SA ONLY 330 MG/7.5 ML UDC GT SCH (08:48)
[2017-03-18] MEDS: ASPIRIN 81 MG TAB.CHEW GT SCH (08:48)
[2017-03-18] MEDS: ASCORBIC ACID 500 MG TABLET GT SCH (08:49)
[2017-03-18] MEDS: POLYETHYLENE GLYCOL 3350 17 GM POWD.PACK GT SCH (08:49)
[2017-03-18] MEDS: CYANOCOBALAMIN 500 MCG TABLET GT SCH (08:49)
[2017-03-18] MEDS: ZINC SULFATE 220 MG CAPSULE GT SCH (08:49)
[2017-03-18] MEDS: SENNOSIDES 8.6 MG TABLET GT SCH (08:49)
[2017-03-18] MEDS: ESOMEPRAZOLE MAGNESIUM 40 MG GT SCH ×2 (08:49→16:02)
[2017-03-18] MEDS: ENOXAPARIN SODIUM 40 MG/0.4 ML DISP.SYRIN SQ SCH (08:50)
[2017-03-18] MEDS: HYDROGEN PEROXIDE 480 ML BOTTLE TP SCH ×2 (09:00→21:00)
[2017-03-18] MEDS: Z GUARD REMEDY 4 OZ OINT TP SCH ×2 (10:00→21:00)
[2017-03-18 12:00] VITALS: BP 110/60
[2017-03-18] MEDS: CLONIDINE HCL 0.1 MG TABLET GT PRN ×2 (12:35→17:21)
--- NOTE | 2017-03-18 15:37 | NUR ---
RT RCV'D PT TRACH'D ON [facility] VENT WITH SETTINGS PER MD ORDER. HORSERADISH GRINDER DONE. BILAT BREATH SOUNDS ON AUSCULTATION. SPARE TRACH AND AMBU BAG AT HEAD OF BED. VENT PLUGGED INTO RED OUTLET. ALARMS ON AND WORKING PROPERLY. TRACH SECURE AND AIRWAY PATENT. TX'S GIVEN AND TOLERATED WELL. NO ADVERSE REACTIONS OBSERVED. NO SOB NOTED AT THIS TIME. WILL CONTINUE TO MONITOR THE PATIENT FOR ANY CHANGE OF CONDITION. Addendum: 03/18/17 at 1607 by FLORA SHANNON RT Amended: Links added.
[2017-03-18] MEDS: FIBERSOURCE HN 1,000 ML BOTTLE GT PRN (15:55)
[2017-03-18 18:53] VITALS: BP 113/64
[2017-03-18 19:34] VITALS: BP 115/75
[2017-03-18] MEDS: DULOXETINE HCL 30 MG CAPSULE.DR GT SCH (22:00)
[2017-03-19] VITALS: BP 119/70
[2017-03-19] MEDS: IPRATROPIUM NEB FS 0.5 MG/2.5 ML AMPUL.NEB NEB SCH ×4 (01:26→19:30)
[2017-03-19] MEDS: ALBUTEROL HALF STRENGTH 1.25 MG/3 ML VIAL.NEB NEB SCH ×4 (01:26→19:30)
[2017-03-19] MEDS: FIBERSOURCE HN 1,000 ML BOTTLE GT PRN (04:30)
[2017-03-19] MEDS: LEVOTHYROXINE SODIUM 25 MCG TABLET GT SCH (05:22)
[2017-03-19 06:09] VITALS: BP 117/65
[2017-03-19] MEDS: HYDROGEN PEROXIDE 480 ML BOTTLE TP SCH ×2 (09:00→21:34)
[2017-03-19] MEDS: Z GUARD REMEDY 4 OZ OINT TP SCH ×2 (09:00→21:34)
[2017-03-19] MEDS: MECLIZINE HCL 12.5 MG TABLET GT SCH ×2 (09:21→21:34)
[2017-03-19] MEDS: ASCORBIC ACID 500 MG TABLET GT SCH (09:22)
[2017-03-19] MEDS: FERROUS SULFATE - FOR SA ONLY 330 MG/7.5 ML UDC GT SCH (09:22)
[2017-03-19] MEDS: POLYETHYLENE GLYCOL 3350 17 GM POWD.PACK GT SCH (09:22)
[2017-03-19] MEDS: ENOXAPARIN SODIUM 40 MG/0.4 ML DISP.SYRIN SQ SCH (09:22)
[2017-03-19] MEDS: SENNOSIDES 8.6 MG TABLET GT SCH (09:22)
[2017-03-19] MEDS: CYANOCOBALAMIN 500 MCG TABLET GT SCH (09:22)
[2017-03-19] MEDS: ZINC SULFATE 220 MG CAPSULE GT SCH (09:22)
[2017-03-19] MEDS: ASPIRIN 81 MG TAB.CHEW GT SCH (09:22)
[2017-03-19] MEDS: ESOMEPRAZOLE MAGNESIUM 40 MG GT SCH ×2 (09:22→16:35)
[2017-03-19 13:08] VITALS: BP 115/62
[2017-03-19 18:39] VITALS: BP 118/66
--- NOTE | 2017-03-19 19:28 | NUR ---
Received new order from Dr. Good to D/C Nexium and start Omeprazole 20mg via GT order noted and carried out.
[2017-03-19 19:56] VITALS: BP 110/73
[2017-03-19] MEDS: DULOXETINE HCL 30 MG CAPSULE.DR GT SCH (21:34)
[2017-03-20 00:04] VITALS: BP 112/62
--- NOTE | 2017-03-20 00:38 | NUR ---
Patient received trached on mech vent. Breath sounds equal bilateral and trach midline. Tx given as ordered and tolerated well. No adverse reactions noted. Vent plugged into red outlet and alarms set and audible. Ambu bag at the bed side.
[2017-03-20] MEDS: ALBUTEROL HALF STRENGTH 1.25 MG/3 ML VIAL.NEB NEB SCH ×4 (01:27→20:23)
[2017-03-20] MEDS: IPRATROPIUM NEB FS 0.5 MG/2.5 ML AMPUL.NEB NEB SCH ×4 (01:27→20:23)
[2017-03-20] MEDS: LEVOTHYROXINE SODIUM 25 MCG TABLET GT SCH (05:59)
[2017-03-20 06:07] VITALS: BP 109/64
[2017-03-20 08:12] VITALS: BP 113/64
[2017-03-20] MEDS: SENNOSIDES 8.6 MG TABLET GT SCH (09:36)
[2017-03-20] MEDS: CYANOCOBALAMIN 500 MCG TABLET GT SCH (09:36)
[2017-03-20] MEDS: ASCORBIC ACID 500 MG TABLET GT SCH (09:36)
[2017-03-20] MEDS: ZINC SULFATE 220 MG CAPSULE GT SCH (09:36)
[2017-03-20] MEDS: ASPIRIN 81 MG TAB.CHEW GT SCH (09:36)
[2017-03-20] MEDS: POLYETHYLENE GLYCOL 3350 17 GM POWD.PACK GT SCH (09:36)
[2017-03-20] MEDS: MECLIZINE HCL 12.5 MG TABLET GT SCH ×2 (09:36→21:33)
[2017-03-20] MEDS: ESOMEPRAZOLE MAGNESIUM 40 MG GT SCH (09:36)
[2017-03-20] MEDS: FERROUS SULFATE - FOR SA ONLY 330 MG/7.5 ML UDC GT SCH (09:36)
[2017-03-20] MEDS: ENOXAPARIN SODIUM 40 MG/0.4 ML DISP.SYRIN SQ SCH (09:37)
[2017-03-20] MEDS: HYDROGEN PEROXIDE 480 ML BOTTLE TP SCH ×2 (10:45→21:33)
[2017-03-20] MEDS: Z GUARD REMEDY 4 OZ OINT TP SCH ×2 (10:45→21:33)
[2017-03-20 12:00] VITALS: BP 116/66
[2017-03-20 18:00] VITALS: BP 134/76
[2017-03-20 19:36] VITALS: BP 106/65
[2017-03-20] MEDS: DULOXETINE HCL 30 MG CAPSULE.DR GT SCH (21:33)
[2017-03-21 00:23] VITALS: BP 129/69
[2017-03-21] MEDS: IPRATROPIUM NEB FS 0.5 MG/2.5 ML AMPUL.NEB NEB SCH ×4 (02:25→20:09)
[2017-03-21] MEDS: ALBUTEROL HALF STRENGTH 1.25 MG/3 ML VIAL.NEB NEB SCH ×4 (02:25→20:09)
[2017-03-21] MEDS: LEVOTHYROXINE SODIUM 25 MCG TABLET GT SCH (05:35)
[2017-03-21 06:14] VITALS: BP 122/65
[2017-03-21 08:20] VITALS: BP 131/65
[2017-03-21] MEDS: ZINC SULFATE 220 MG CAPSULE GT SCH (09:05)
[2017-03-21] MEDS: MECLIZINE HCL 12.5 MG TABLET GT SCH ×2 (09:05→21:20)
[2017-03-21] MEDS: SENNOSIDES 8.6 MG TABLET GT SCH (09:05)
[2017-03-21] MEDS: FERROUS SULFATE - FOR SA ONLY 330 MG/7.5 ML UDC GT SCH (09:05)
[2017-03-21] MEDS: ASPIRIN 81 MG TAB.CHEW GT SCH (09:05)
[2017-03-21] MEDS: CYANOCOBALAMIN 500 MCG TABLET GT SCH (09:05)
[2017-03-21] MEDS: OMEPRAZOLE 10 MG CAPSULE.DR GT SCH (09:05)
[2017-03-21] MEDS: POLYETHYLENE GLYCOL 3350 17 GM POWD.PACK GT SCH (09:05)
[2017-03-21] MEDS: ASCORBIC ACID 500 MG TABLET GT SCH (09:05)
[2017-03-21] MEDS: ENOXAPARIN SODIUM 40 MG/0.4 ML DISP.SYRIN SQ SCH (09:06)
--- NOTE | 2017-03-21 10:10 | NUR ---
Seen and examined by Dr John with no new order.
[2017-03-21] MEDS: Z GUARD REMEDY 4 OZ OINT TP SCH ×2 (10:15→21:20)
[2017-03-21] MEDS: HYDROGEN PEROXIDE 480 ML BOTTLE TP SCH ×2 (10:15→21:20)
[2017-03-21 12:00] VITALS: BP 134/76
[2017-03-21] MEDS: FIBERSOURCE HN 1,000 ML BOTTLE GT PRN (15:19)
[2017-03-21 18:00] VITALS: BP 131/74
[2017-03-21 19:39] VITALS: BP 117/59
[2017-03-21] MEDS: DULOXETINE HCL 30 MG CAPSULE.DR GT SCH (21:20)
[2017-03-22] MEDS: IPRATROPIUM NEB FS 0.5 MG/2.5 ML AMPUL.NEB NEB SCH ×4 (01:30→20:13)
[2017-03-22] MEDS: ALBUTEROL HALF STRENGTH 1.25 MG/3 ML VIAL.NEB NEB SCH ×4 (01:30→20:13)
[2017-03-22] MEDS: LEVOTHYROXINE SODIUM 25 MCG TABLET GT SCH (05:39)
[2017-03-22 08:09] VITALS: BP 105/60
[2017-03-22] MEDS: FERROUS SULFATE - FOR SA ONLY 330 MG/7.5 ML UDC GT SCH (08:49)
[2017-03-22] MEDS: ASPIRIN 81 MG TAB.CHEW GT SCH (08:49)
[2017-03-22] MEDS: MECLIZINE HCL 12.5 MG TABLET GT SCH ×2 (08:49→21:13)
[2017-03-22] MEDS: POLYETHYLENE GLYCOL 3350 17 GM POWD.PACK GT SCH (08:49)
[2017-03-22] MEDS: ZINC SULFATE 220 MG CAPSULE GT SCH (08:50)
[2017-03-22] MEDS: CYANOCOBALAMIN 500 MCG TABLET GT SCH (08:50)
[2017-03-22] MEDS: OMEPRAZOLE 10 MG CAPSULE.DR GT SCH (08:50)
[2017-03-22] MEDS: ASCORBIC ACID 500 MG TABLET GT SCH (08:50)
[2017-03-22] MEDS: SENNOSIDES 8.6 MG TABLET GT SCH (08:50)
[2017-03-22] MEDS: Z GUARD REMEDY 4 OZ OINT TP SCH ×2 (08:52→21:13)
[2017-03-22] MEDS: ENOXAPARIN SODIUM 40 MG/0.4 ML DISP.SYRIN SQ SCH (08:52)
[2017-03-22] MEDS: CLONIDINE HCL 0.1 MG TABLET GT PRN ×2 (12:03→17:49)
[2017-03-22] MEDS: HYDROGEN PEROXIDE 480 ML BOTTLE TP SCH ×2 (12:13→21:13)
[2017-03-22] MEDS: FIBERSOURCE HN 1,000 ML BOTTLE GT PRN (12:13)
[2017-03-22 20:09] VITALS: BP 108/63
[2017-03-22] MEDS: DULOXETINE HCL 30 MG CAPSULE.DR GT SCH (21:13)
[2017-03-23] MEDS: IPRATROPIUM NEB FS 0.5 MG/2.5 ML AMPUL.NEB NEB SCH ×4 (01:35→19:59)
[2017-03-23] MEDS: ALBUTEROL HALF STRENGTH 1.25 MG/3 ML VIAL.NEB NEB SCH ×4 (01:35→19:59)
[2017-03-23] MEDS: LEVOTHYROXINE SODIUM 25 MCG TABLET GT SCH (05:54)
[2017-03-23] MEDS: FIBERSOURCE HN 1,000 ML BOTTLE GT PRN (05:58)
[2017-03-23 07:37] LABS: BASOPHILS % (AUTO) 0.2 % (0.0-2.0); EOSINOPHILS # (AUTO) 0.2 /CMM (0.0-0.7); EOSINOPHILS % (AUTO) 2.1 % (0.0-6.0); HEMATOCRIT 34 % (33-45); HEMOGLOBIN 11.1 g/dL (11.5-14.8); LYMPHOCYTES # (AUTO) 1.6 /CMM (0.8-4.8); MEAN CORPUSCULAR HEMOGLOBIN 30 PG (26.0-33.0); MEAN CORPUSCULAR HGB CONC 33 g/dl (31.0-36.0); MEAN CORPUSCULAR VOLUME 92 fL (82-100); MONOCYTES # (AUTO) 0.8 /CMM (0.1-1.30); MONOCYTES % (AUTO) 8.6 % (2.0-12.0); NEUTROPHILS # (AUTO) 6.4 /CMM (1.8-8.9); NEUTROPHILS % (AUTO) 71.1 % (43.0-81.0); PLATELET COUNT (AUTO) 329 /CMM (150-450); RDW COEFFICIENT OF VARIATION 14.5 (11.5-15.0); RED BLOOD CELL COUNT(AUTO) 3.64 MIL/uL (4.0-5.2)
[2017-03-23 07:46] VITALS: BP 121/72
[2017-03-23 07:57] LABS: ALBUMIN 2.9 g/dL (3.4-5.0); BILIRUBIN,TOTAL 0.2 mg/dL (0.2-1.0); CALCIUM, SERUM 8.6 mg/dL (8.5-10.1); CREATININE 0.6 mg/dL (0.6-1.3); POTASSIUM 4.5 mmol/L (3.5-5.1)
[2017-03-23 08:16] LABS: TOTAL PROTEIN, SERUM 7.1 g/dL (6.4-8.2)
[2017-03-23] MEDS: FERROUS SULFATE - FOR SA ONLY 330 MG/7.5 ML UDC GT SCH (09:54)
[2017-03-23] MEDS: ASPIRIN 81 MG TAB.CHEW GT SCH (09:54)
[2017-03-23] MEDS: ZINC SULFATE 220 MG CAPSULE GT SCH (09:54)
[2017-03-23] MEDS: CYANOCOBALAMIN 500 MCG TABLET GT SCH (09:54)
[2017-03-23] MEDS: ASCORBIC ACID 500 MG TABLET GT SCH (09:54)
[2017-03-23] MEDS: SENNOSIDES 8.6 MG TABLET GT SCH (09:54)
[2017-03-23] MEDS: POLYETHYLENE GLYCOL 3350 17 GM POWD.PACK GT SCH (09:54)
[2017-03-23] MEDS: OMEPRAZOLE 10 MG CAPSULE.DR GT SCH (09:54)
[2017-03-23] MEDS: MECLIZINE HCL 12.5 MG TABLET GT SCH ×2 (09:54→21:38)
[2017-03-23] MEDS: ENOXAPARIN SODIUM 40 MG/0.4 ML DISP.SYRIN SQ SCH (09:55)
[2017-03-23] MEDS: Z GUARD REMEDY 4 OZ OINT TP SCH ×2 (11:45→21:38)
[2017-03-23] MEDS: HYDROGEN PEROXIDE 480 ML BOTTLE TP SCH ×2 (11:45→21:38)
--- NOTE | 2017-03-23 14:30 | NUR ---
Lab results seen by AJ Hankins. No new order.
[2017-03-23] MEDS: ONDANSETRON 4 MG TAB.RAPDIS GT PRN (16:55)
[2017-03-23] MEDS: ACETAMINOPHEN 650 MG/20 ML UDC- FOR SA PATIENTS ONLY GT PRN (16:55)
--- NOTE | 2017-03-23 16:55 | NUR ---
RT NOTE: PATIENT'S SATURATION DECREASED TO 89- 90%. AGGRESSIVE SUCTION AND LAVAGE DONE WITH LARGE AMOUNT OF THICK WHITE SECRETIONS OBTAINED. SP02 INCREASED TO 100% AT THIS TIME. NURSE AWARE. WILL CONTINUE TO MONITOR.
[2017-03-23 20:00] VITALS: BP 108/64
[2017-03-23] MEDS: DULOXETINE HCL 30 MG CAPSULE.DR GT SCH (21:38)
[2017-03-23] MEDS: CLONIDINE HCL 0.1 MG TABLET GT PRN (23:56)
[2017-03-24] MEDS: ALBUTEROL HALF STRENGTH 1.25 MG/3 ML VIAL.NEB NEB SCH ×4 (01:17→19:50)
[2017-03-24] MEDS: IPRATROPIUM NEB FS 0.5 MG/2.5 ML AMPUL.NEB NEB SCH ×4 (01:17→19:50)
[2017-03-24] MEDS: FIBERSOURCE HN 1,000 ML BOTTLE GT PRN ×2 (03:06→21:19)
[2017-03-24] MEDS: LEVOTHYROXINE SODIUM 25 MCG TABLET GT SCH (05:06)
[2017-03-24 07:46] VITALS: BP 140/71
[2017-03-24] MEDS: FERROUS SULFATE - FOR SA ONLY 330 MG/7.5 ML UDC GT SCH (09:17)
[2017-03-24] MEDS: SENNOSIDES 8.6 MG TABLET GT SCH (09:17)
[2017-03-24] MEDS: ZINC SULFATE 220 MG CAPSULE GT SCH (09:17)
[2017-03-24] MEDS: ASCORBIC ACID 500 MG TABLET GT SCH (09:17)
[2017-03-24] MEDS: ASPIRIN 81 MG TAB.CHEW GT SCH (09:17)
[2017-03-24] MEDS: MECLIZINE HCL 12.5 MG TABLET GT SCH ×2 (09:17→21:18)
[2017-03-24] MEDS: CYANOCOBALAMIN 500 MCG TABLET GT SCH (09:17)
[2017-03-24] MEDS: OMEPRAZOLE 10 MG CAPSULE.DR GT SCH (09:17)
[2017-03-24] MEDS: POLYETHYLENE GLYCOL 3350 17 GM POWD.PACK GT SCH (09:17)
[2017-03-24] MEDS: ENOXAPARIN SODIUM 40 MG/0.4 ML DISP.SYRIN SQ SCH (09:18)
[2017-03-24] MEDS: HYDROGEN PEROXIDE 480 ML BOTTLE TP SCH ×2 (12:18→21:18)
[2017-03-24] MEDS: CLONIDINE HCL 0.1 MG TABLET GT PRN (12:19)
[2017-03-24] MEDS: Z GUARD REMEDY 4 OZ OINT TP SCH ×2 (12:19→21:18)
[2017-03-24 19:56] VITALS: BP 113/56
[2017-03-24] MEDS: DULOXETINE HCL 30 MG CAPSULE.DR GT SCH (21:18)
[2017-03-25] MEDS: IPRATROPIUM NEB FS 0.5 MG/2.5 ML AMPUL.NEB NEB SCH ×4 (01:37→19:57)
[2017-03-25] MEDS: ALBUTEROL HALF STRENGTH 1.25 MG/3 ML VIAL.NEB NEB SCH ×4 (01:37→19:57)
[2017-03-25] MEDS: LEVOTHYROXINE SODIUM 25 MCG TABLET GT SCH (05:19)
[2017-03-25 07:43] VITALS: BP 118/54
[2017-03-25] MEDS: MECLIZINE HCL 12.5 MG TABLET GT SCH ×2 (09:44→21:00)
[2017-03-25] MEDS: ASPIRIN 81 MG TAB.CHEW GT SCH (09:44)
[2017-03-25] MEDS: FERROUS SULFATE - FOR SA ONLY 330 MG/7.5 ML UDC GT SCH (09:44)
[2017-03-25] MEDS: POLYETHYLENE GLYCOL 3350 17 GM POWD.PACK GT SCH (09:44)
[2017-03-25] MEDS: ZINC SULFATE 220 MG CAPSULE GT SCH (09:45)
[2017-03-25] MEDS: OMEPRAZOLE 10 MG CAPSULE.DR GT SCH (09:45)
[2017-03-25] MEDS: SENNOSIDES 8.6 MG TABLET GT SCH (09:45)
[2017-03-25] MEDS: ASCORBIC ACID 500 MG TABLET GT SCH (09:45)
[2017-03-25] MEDS: CYANOCOBALAMIN 500 MCG TABLET GT SCH (09:45)
[2017-03-25] MEDS: Z GUARD REMEDY 4 OZ OINT TP SCH ×2 (09:46→21:00)
[2017-03-25] MEDS: ENOXAPARIN SODIUM 40 MG/0.4 ML DISP.SYRIN SQ SCH (09:46)
[2017-03-25] MEDS: HYDROGEN PEROXIDE 480 ML BOTTLE TP SCH ×2 (09:46→21:00)
[2017-03-25] MEDS: CLONIDINE HCL 0.1 MG TABLET GT PRN ×2 (11:49→17:28)
[2017-03-25] MEDS: FIBERSOURCE HN 1,000 ML BOTTLE GT PRN (15:47)
[2017-03-25 19:17] VITALS: BP_SYST 113; BP_SYST 142; BP_DIAS 54; BP_DIAS 75
[2017-03-25] MEDS: DULOXETINE HCL 30 MG CAPSULE.DR GT SCH (22:00)
[2017-03-26] MEDS: IPRATROPIUM NEB FS 0.5 MG/2.5 ML AMPUL.NEB NEB SCH ×4 (01:30→19:30)
[2017-03-26] MEDS: ALBUTEROL HALF STRENGTH 1.25 MG/3 ML VIAL.NEB NEB SCH ×4 (01:30→19:30)
[2017-03-26] MEDS: FIBERSOURCE HN 1,000 ML BOTTLE GT PRN (05:57)
[2017-03-26 08:00] VITALS: BP 121/66
[2017-03-26] MEDS: FERROUS SULFATE - FOR SA ONLY 330 MG/7.5 ML UDC GT SCH (08:36)
[2017-03-26] MEDS: ASPIRIN 81 MG TAB.CHEW GT SCH (08:36)
[2017-03-26] MEDS: SENNOSIDES 8.6 MG TABLET GT SCH (08:36)
[2017-03-26] MEDS: POLYETHYLENE GLYCOL 3350 17 GM POWD.PACK GT SCH (08:36)
[2017-03-26] MEDS: ASCORBIC ACID 500 MG TABLET GT SCH (08:36)
[2017-03-26] MEDS: MECLIZINE HCL 12.5 MG TABLET GT SCH ×2 (08:36→20:37)
[2017-03-26] MEDS: OMEPRAZOLE 10 MG CAPSULE.DR GT SCH (08:36)
[2017-03-26] MEDS: CYANOCOBALAMIN 500 MCG TABLET GT SCH (08:36)
[2017-03-26] MEDS: ZINC SULFATE 220 MG CAPSULE GT SCH (08:37)
[2017-03-26] MEDS: HYDROGEN PEROXIDE 480 ML BOTTLE TP SCH ×2 (08:37→20:37)
[2017-03-26] MEDS: Z GUARD REMEDY 4 OZ OINT TP SCH ×2 (08:37→20:38)
[2017-03-26] MEDS: ENOXAPARIN SODIUM 40 MG/0.4 ML DISP.SYRIN SQ SCH (08:38)
--- NOTE | 2017-03-26 11:46 | NUR ---
Pt was received on appropriate settings. Pt is obtunded, awake, no distress noted at this time. Ambubag and extra trache at bedside. Cuff was checked, vent is plugged in red outlet. Loc [employer] SPEECH AND LANGUAGE CLINICIAN Addendum: 03/26/17 at 1146 by DIANNE DODGE RT Amended: Links added.
[2017-03-26] MEDS: DULOXETINE HCL 30 MG CAPSULE.DR GT SCH (21:27)
[2017-03-27] MEDS: IPRATROPIUM NEB FS 0.5 MG/2.5 ML AMPUL.NEB NEB SCH ×4 (02:15→19:30)
[2017-03-27] MEDS: ALBUTEROL HALF STRENGTH 1.25 MG/3 ML VIAL.NEB NEB SCH ×4 (02:15→19:30)
[2017-03-27] MEDS: LEVOTHYROXINE SODIUM 25 MCG TABLET GT SCH (05:31)
[2017-03-27 08:05] VITALS: BP 121/78
[2017-03-27] MEDS: ASCORBIC ACID 500 MG TABLET GT SCH (09:28)
[2017-03-27] MEDS: ZINC SULFATE 220 MG CAPSULE GT SCH (09:28)
[2017-03-27] MEDS: CYANOCOBALAMIN 500 MCG TABLET GT SCH (09:28)
[2017-03-27] MEDS: POLYETHYLENE GLYCOL 3350 17 GM POWD.PACK GT SCH (09:28)
[2017-03-27] MEDS: MECLIZINE HCL 12.5 MG TABLET GT SCH ×2 (09:28→20:57)
[2017-03-27] MEDS: FERROUS SULFATE - FOR SA ONLY 330 MG/7.5 ML UDC GT SCH (09:28)
[2017-03-27] MEDS: SENNOSIDES 8.6 MG TABLET GT SCH (09:28)
[2017-03-27] MEDS: OMEPRAZOLE 10 MG CAPSULE.DR GT SCH (09:28)
[2017-03-27] MEDS: ASPIRIN 81 MG TAB.CHEW GT SCH (09:28)
[2017-03-27] MEDS: Z GUARD REMEDY 4 OZ OINT TP SCH ×2 (09:29→20:58)
[2017-03-27] MEDS: ENOXAPARIN SODIUM 40 MG/0.4 ML DISP.SYRIN SQ SCH (09:29)
[2017-03-27] MEDS: HYDROGEN PEROXIDE 480 ML BOTTLE TP SCH ×2 (09:29→20:57)
--- NOTE | 2017-03-27 11:14 | NUR ---
RT NOTE: PATIENT'S SATURATION DECREASED TO 88-93%. AGGRESSIVE SUCTION AND LAVAGE DONE WITH LARGE AMOUNT OF THIN WHITE SECRETIONS OBTAINED. SP02 INCREASED TO 98% AT THIS TIME. CHARGE NURSE (PERLITA) AWARE. WILL CONTINUE TO MONITOR.
[2017-03-27 20:00] VITALS: BP 120/78
[2017-03-27] MEDS: DULOXETINE HCL 30 MG CAPSULE.DR GT SCH (21:31)
[2017-03-28] MEDS: IPRATROPIUM NEB FS 0.5 MG/2.5 ML AMPUL.NEB NEB SCH ×4 (00:55→20:22)
[2017-03-28] MEDS: ALBUTEROL HALF STRENGTH 1.25 MG/3 ML VIAL.NEB NEB SCH ×4 (00:55→20:22)
[2017-03-28] MEDS: LEVOTHYROXINE SODIUM 25 MCG TABLET GT SCH (05:54)
[2017-03-28 08:00] VITALS: BP 145/65
[2017-03-28] MEDS: OMEPRAZOLE 10 MG CAPSULE.DR GT SCH (09:52)
[2017-03-28] MEDS: MECLIZINE HCL 12.5 MG TABLET GT SCH ×2 (09:52→20:02)
[2017-03-28] MEDS: ASPIRIN 81 MG TAB.CHEW GT SCH (09:52)
[2017-03-28] MEDS: ZINC SULFATE 220 MG CAPSULE GT SCH (09:52)
[2017-03-28] MEDS: CYANOCOBALAMIN 500 MCG TABLET GT SCH (09:52)
[2017-03-28] MEDS: Z GUARD REMEDY 4 OZ OINT TP SCH ×2 (09:52→20:02)
[2017-03-28] MEDS: ENOXAPARIN SODIUM 40 MG/0.4 ML DISP.SYRIN SQ SCH (09:52)
[2017-03-28] MEDS: SENNOSIDES 8.6 MG TABLET GT SCH (09:52)
[2017-03-28] MEDS: FERROUS SULFATE - FOR SA ONLY 330 MG/7.5 ML UDC GT SCH (09:52)
[2017-03-28] MEDS: POLYETHYLENE GLYCOL 3350 17 GM POWD.PACK GT SCH (09:52)
[2017-03-28] MEDS: ASCORBIC ACID 500 MG TABLET GT SCH (09:52)
[2017-03-28] MEDS: HYDROGEN PEROXIDE 480 ML BOTTLE TP SCH ×2 (09:52→20:02)
[2017-03-28 19:34] VITALS: BP 122/60
[2017-03-28] MEDS: DULOXETINE HCL 30 MG CAPSULE.DR GT SCH (22:33)
[2017-03-29] MEDS: IPRATROPIUM NEB FS 0.5 MG/2.5 ML AMPUL.NEB NEB SCH ×4 (01:20→19:47)
[2017-03-29] MEDS: ALBUTEROL HALF STRENGTH 1.25 MG/3 ML VIAL.NEB NEB SCH ×4 (01:20→19:47)
[2017-03-29] MEDS: LEVOTHYROXINE SODIUM 25 MCG TABLET GT SCH (05:27)
[2017-03-29 07:46] VITALS: BP 116/66
[2017-03-29] MEDS: ASPIRIN 81 MG TAB.CHEW GT SCH (09:18)
[2017-03-29] MEDS: POLYETHYLENE GLYCOL 3350 17 GM POWD.PACK GT SCH (09:18)
[2017-03-29] MEDS: MECLIZINE HCL 12.5 MG TABLET GT SCH ×2 (09:18→20:36)
[2017-03-29] MEDS: FERROUS SULFATE - FOR SA ONLY 330 MG/7.5 ML UDC GT SCH (09:18)
[2017-03-29] MEDS: SENNOSIDES 8.6 MG TABLET GT SCH (09:18)
[2017-03-29] MEDS: ASCORBIC ACID 500 MG TABLET GT SCH (09:18)
[2017-03-29] MEDS: ZINC SULFATE 220 MG CAPSULE GT SCH (09:18)
[2017-03-29] MEDS: OMEPRAZOLE 10 MG CAPSULE.DR GT SCH (09:18)
[2017-03-29] MEDS: CYANOCOBALAMIN 500 MCG TABLET GT SCH (09:18)
[2017-03-29] MEDS: Z GUARD REMEDY 4 OZ OINT TP SCH ×2 (09:19→20:37)
[2017-03-29] MEDS: HYDROGEN PEROXIDE 480 ML BOTTLE TP SCH ×2 (09:19→20:36)
[2017-03-29] MEDS: ENOXAPARIN SODIUM 40 MG/0.4 ML DISP.SYRIN SQ SCH (09:19)
[2017-03-29] MEDS: FIBERSOURCE HN 1,000 ML BOTTLE GT PRN (12:37)
[2017-03-29 19:37] VITALS: BP 114/67
[2017-03-29] MEDS: DULOXETINE HCL 30 MG CAPSULE.DR GT SCH (21:22)
[2017-03-30] MEDS: ALBUTEROL HALF STRENGTH 1.25 MG/3 ML VIAL.NEB NEB SCH ×4 (01:50→20:04)
[2017-03-30] MEDS: IPRATROPIUM NEB FS 0.5 MG/2.5 ML AMPUL.NEB NEB SCH ×4 (01:50→20:04)
[2017-03-30] MEDS: LEVOTHYROXINE SODIUM 25 MCG TABLET GT SCH (05:29)
[2017-03-30] MEDS: FIBERSOURCE HN 1,000 ML BOTTLE GT PRN ×2 (05:29→23:44)
[2017-03-30 07:38] VITALS: BP 148/84
[2017-03-30] MEDS: ASCORBIC ACID 500 MG TABLET GT SCH (09:48)
[2017-03-30] MEDS: SENNOSIDES 8.6 MG TABLET GT SCH (09:48)
[2017-03-30] MEDS: MECLIZINE HCL 12.5 MG TABLET GT SCH ×2 (09:48→21:11)
[2017-03-30] MEDS: FERROUS SULFATE - FOR SA ONLY 330 MG/7.5 ML UDC GT SCH (09:48)
[2017-03-30] MEDS: ASPIRIN 81 MG TAB.CHEW GT SCH (09:48)
[2017-03-30] MEDS: ZINC SULFATE 220 MG CAPSULE GT SCH (09:48)
[2017-03-30] MEDS: OMEPRAZOLE 10 MG CAPSULE.DR GT SCH (09:48)
[2017-03-30] MEDS: POLYETHYLENE GLYCOL 3350 17 GM POWD.PACK GT SCH (09:48)
[2017-03-30] MEDS: CYANOCOBALAMIN 500 MCG TABLET GT SCH (09:48)
[2017-03-30] MEDS: ENOXAPARIN SODIUM 40 MG/0.4 ML DISP.SYRIN SQ SCH (09:50)
[2017-03-30] MEDS: HYDROGEN PEROXIDE 480 ML BOTTLE TP SCH ×2 (09:51→21:11)
[2017-03-30] MEDS: Z GUARD REMEDY 4 OZ OINT TP SCH ×2 (09:51→21:11)
[2017-03-30] MEDS: ACETAMINOPHEN 650 MG/20 ML UDC- FOR SA PATIENTS ONLY GT PRN (13:42)
[2017-03-30 20:16] VITALS: BP 122/62
[2017-03-30] MEDS: DULOXETINE HCL 30 MG CAPSULE.DR GT SCH (21:11)
[2017-03-31] VITALS: BP 123/69
[2017-03-31] MEDS: IPRATROPIUM NEB FS 0.5 MG/2.5 ML AMPUL.NEB NEB SCH ×4 (01:20→20:08)
[2017-03-31] MEDS: ALBUTEROL HALF STRENGTH 1.25 MG/3 ML VIAL.NEB NEB SCH ×4 (01:20→20:08)
[2017-03-31] MEDS: LEVOTHYROXINE SODIUM 25 MCG TABLET GT SCH (05:59)
[2017-03-31 06:02] VITALS: BP 132/71
[2017-03-31 07:40] VITALS: BP 129/72
[2017-03-31] MEDS: FERROUS SULFATE - FOR SA ONLY 330 MG/7.5 ML UDC GT SCH (09:45)
[2017-03-31] MEDS: MECLIZINE HCL 12.5 MG TABLET GT SCH ×2 (09:45→20:43)
[2017-03-31] MEDS: SENNOSIDES 8.6 MG TABLET GT SCH (09:45)
[2017-03-31] MEDS: ASCORBIC ACID 500 MG TABLET GT SCH (09:45)
[2017-03-31] MEDS: POLYETHYLENE GLYCOL 3350 17 GM POWD.PACK GT SCH (09:45)
[2017-03-31] MEDS: OMEPRAZOLE 10 MG CAPSULE.DR GT SCH (09:45)
[2017-03-31] MEDS: ASPIRIN 81 MG TAB.CHEW GT SCH (09:45)
[2017-03-31] MEDS: ZINC SULFATE 220 MG CAPSULE GT SCH (09:45)
[2017-03-31] MEDS: CYANOCOBALAMIN 500 MCG TABLET GT SCH (09:45)
[2017-03-31] MEDS: HYDROGEN PEROXIDE 480 ML BOTTLE TP SCH ×2 (09:46→20:44)
[2017-03-31] MEDS: ENOXAPARIN SODIUM 40 MG/0.4 ML DISP.SYRIN SQ SCH (09:46)
[2017-03-31] MEDS: Z GUARD REMEDY 4 OZ OINT TP SCH ×2 (09:46→20:44)
--- NOTE | 2017-03-31 11:30 | NUR ---
Seen and examined by Dr. Chris Foreman, NNO order given at this time.
[2017-03-31 12:00] VITALS: BP 122/73
--- NOTE | 2017-03-31 13:59 | NUR ---
IDT meeting held, reviewed new orders, medications, treatments and plan of care. Cheli (daughter), participated in the meeting via phone conference. Informed Cheli that Dr. Ridley, scalp treatment specialist seen and examined resident with new order for eye drops and ordered glasses for patient. She asked again regarding weaning patient, according to Dr. John it is "no" for now because it was tried several times in the past and she failed. According to MD, neurologically she has no strength. Daughter understands patient's condition. No other order given.
--- NOTE | 2017-03-31 16:00 | NUR ---
Resident was seen by Dr. Ridley (cooler tender) today. He prescribed medication to treat an infection in the eyes and he will order eye glasses for her as well. Gera Bower was informed during IDT meeting.
[2017-03-31] MEDS: TOBRAMYCIN/DEXAMETH OPHTH DORPS 2.5 ML BOTTLE EACHEYE SCH ×2 (17:00→20:43)
[2017-03-31] MEDS: FIBERSOURCE HN 1,000 ML BOTTLE GT PRN (18:11)
[2017-03-31 18:55] VITALS: BP 123/84
[2017-03-31 19:26] VITALS: BP 108/62
[2017-03-31] MEDS: DULOXETINE HCL 30 MG CAPSULE.DR GT SCH (21:51)
[2017-04-01 00:12] VITALS: BP 113/56
[2017-04-01] MEDS: ALBUTEROL HALF STRENGTH 1.25 MG/3 ML VIAL.NEB NEB SCH ×4 (01:30→19:47)
[2017-04-01] MEDS: IPRATROPIUM NEB FS 0.5 MG/2.5 ML AMPUL.NEB NEB SCH ×4 (01:30→19:47)
[2017-04-01] MEDS: OMEPRAZOLE 20 MG CAPSULE.DR GT SCH (05:37)
[2017-04-01] MEDS: LEVOTHYROXINE SODIUM 25 MCG TABLET GT SCH (05:37)
[2017-04-01 06:16] VITALS: BP 112/73
[2017-04-01 07:39] VITALS: BP 118/53
[2017-04-01] MEDS: TOBRAMYCIN/DEXAMETH OPHTH DORPS 2.5 ML BOTTLE EACHEYE SCH ×4 (09:00→21:19)
[2017-04-01] MEDS: ASCORBIC ACID 500 MG TABLET GT SCH (09:00)
[2017-04-01] MEDS: SENNOSIDES 8.6 MG TABLET GT SCH (09:00)
[2017-04-01] MEDS: HYDROGEN PEROXIDE 480 ML BOTTLE TP SCH ×2 (09:00→21:19)
[2017-04-01] MEDS: ASPIRIN 81 MG TAB.CHEW GT SCH (09:00)
[2017-04-01] MEDS: FERROUS SULFATE - FOR SA ONLY 330 MG/7.5 ML UDC GT SCH (09:00)
[2017-04-01] MEDS: ENOXAPARIN SODIUM 40 MG/0.4 ML DISP.SYRIN SQ SCH (09:00)
[2017-04-01] MEDS: CYANOCOBALAMIN 500 MCG TABLET GT SCH (09:00)
[2017-04-01] MEDS: Z GUARD REMEDY 4 OZ OINT TP SCH ×2 (09:00→21:19)
[2017-04-01] MEDS: POLYETHYLENE GLYCOL 3350 17 GM POWD.PACK GT SCH (09:00)
[2017-04-01] MEDS: MECLIZINE HCL 12.5 MG TABLET GT SCH ×2 (09:00→21:19)
[2017-04-01] MEDS: ZINC SULFATE 220 MG CAPSULE GT SCH (09:00)
[2017-04-01] MEDS: ONDANSETRON 4 MG TAB.RAPDIS GT PRN (12:24)
[2017-04-01 13:09] VITALS: BP 139/73
[2017-04-01 18:20] VITALS: BP 134/67
[2017-04-01 19:38] VITALS: BP 104/58
[2017-04-01] MEDS: DULOXETINE HCL 30 MG CAPSULE.DR GT SCH (21:19)
[2017-04-02] MEDS: IPRATROPIUM NEB FS 0.5 MG/2.5 ML AMPUL.NEB NEB SCH ×4 (01:31→19:51)
[2017-04-02] MEDS: ALBUTEROL HALF STRENGTH 1.25 MG/3 ML VIAL.NEB NEB SCH ×4 (01:31→19:51)
[2017-04-02 04:04] VITALS: BP 113/73
[2017-04-02] MEDS: LEVOTHYROXINE SODIUM 25 MCG TABLET GT SCH (05:44)
[2017-04-02] MEDS: OMEPRAZOLE 20 MG CAPSULE.DR GT SCH (05:44)
[2017-04-02 06:16] VITALS: BP 118/72
[2017-04-02 07:40] VITALS: BP 128/61
[2017-04-02] MEDS: MECLIZINE HCL 12.5 MG TABLET GT SCH ×2 (08:49→20:25)
[2017-04-02] MEDS: ASPIRIN 81 MG TAB.CHEW GT SCH (08:50)
[2017-04-02] MEDS: FERROUS SULFATE - FOR SA ONLY 330 MG/7.5 ML UDC GT SCH (08:51)
[2017-04-02] MEDS: SENNOSIDES 8.6 MG TABLET GT SCH (08:51)
[2017-04-02] MEDS: CYANOCOBALAMIN 500 MCG TABLET GT SCH (08:52)
[2017-04-02] MEDS: ASCORBIC ACID 500 MG TABLET GT SCH (08:53)
[2017-04-02] MEDS: POLYETHYLENE GLYCOL 3350 17 GM POWD.PACK GT SCH (08:58)
[2017-04-02] MEDS: ENOXAPARIN SODIUM 40 MG/0.4 ML DISP.SYRIN SQ SCH (08:59)
[2017-04-02] MEDS: ZINC SULFATE 220 MG CAPSULE GT SCH (09:00)
[2017-04-02] MEDS: TOBRAMYCIN/DEXAMETH OPHTH DORPS 2.5 ML BOTTLE EACHEYE SCH ×4 (09:00→20:25)
[2017-04-02] MEDS: HYDROGEN PEROXIDE 480 ML BOTTLE TP SCH ×2 (09:01→20:25)
[2017-04-02] MEDS: Z GUARD REMEDY 4 OZ OINT TP SCH ×2 (09:01→20:26)
--- NOTE | 2017-04-02 11:30 | NUR ---
Seen and examined by Dr. Good with no new order.
[2017-04-02 12:00] VITALS: BP_SYST 124; BP_SYST 128; BP_DIAS 61; BP_DIAS 65
[2017-04-02] MEDS: FIBERSOURCE HN 1,000 ML BOTTLE GT PRN (13:52)
[2017-04-02 18:10] VITALS: BP 127/66
--- NOTE | 2017-04-02 19:52 | NUR ---
PT RCVD ON MECH VENT WITH NOTED SETTINGS. SUCTIONED SMALL AMOUNT OF YELLOWISH WHITE THICK SECRETIONS, BILATERAL BS NOTED. VENT PLUGGED INTO RED OUTLET, VENT ALARMED AND WORKING. AMBU BAG AT BEDSIDE. NO RESPIRATORY DISTRESS AT THIS TIME. WILL CONTINUE TO MONITOR.
[2017-04-02 20:04] VITALS: BP 110/63
[2017-04-02] MEDS: DULOXETINE HCL 30 MG CAPSULE.DR GT SCH (22:55)
[2017-04-03 00:25] VITALS: BP 122/69
[2017-04-03] MEDS: IPRATROPIUM NEB FS 0.5 MG/2.5 ML AMPUL.NEB NEB SCH ×4 (01:11→20:24)
[2017-04-03] MEDS: ALBUTEROL HALF STRENGTH 1.25 MG/3 ML VIAL.NEB NEB SCH ×4 (01:11→20:24)
[2017-04-03] MEDS: OMEPRAZOLE 20 MG CAPSULE.DR GT SCH (06:07)
[2017-04-03] MEDS: LEVOTHYROXINE SODIUM 25 MCG TABLET GT SCH (06:07)
[2017-04-03 06:19] VITALS: BP 125/73
[2017-04-03] MEDS: ENOXAPARIN SODIUM 40 MG/0.4 ML DISP.SYRIN SQ SCH (09:00)
[2017-04-03] MEDS: HYDROGEN PEROXIDE 480 ML BOTTLE TP SCH ×2 (09:00→20:48)
[2017-04-03] MEDS: POLYETHYLENE GLYCOL 3350 17 GM POWD.PACK GT SCH (09:00)
[2017-04-03] MEDS: SENNOSIDES 8.6 MG TABLET GT SCH (09:00)
[2017-04-03] MEDS: TOBRAMYCIN/DEXAMETH OPHTH DORPS 2.5 ML BOTTLE EACHEYE SCH ×4 (09:00→20:48)
[2017-04-03 09:06] VITALS: BP 117/64
[2017-04-03] MEDS: MECLIZINE HCL 12.5 MG TABLET GT SCH ×2 (09:54→20:48)
[2017-04-03] MEDS: ASCORBIC ACID 500 MG TABLET GT SCH (09:55)
[2017-04-03] MEDS: ZINC SULFATE 220 MG CAPSULE GT SCH (09:56)
[2017-04-03] MEDS: FERROUS SULFATE - FOR SA ONLY 330 MG/7.5 ML UDC GT SCH (09:57)
[2017-04-03] MEDS: ASPIRIN 81 MG TAB.CHEW GT SCH (09:59)
[2017-04-03] MEDS: Z GUARD REMEDY 4 OZ OINT TP SCH ×2 (10:01→20:48)
[2017-04-03] MEDS: CYANOCOBALAMIN 500 MCG TABLET GT SCH (10:03)
[2017-04-03 12:00] VITALS: BP 116/64
[2017-04-03] MEDS: FIBERSOURCE HN 1,000 ML BOTTLE GT PRN (12:25)
[2017-04-03] MEDS: ONDANSETRON 4 MG TAB.RAPDIS GT PRN (14:51)
[2017-04-03 18:38] VITALS: BP 147/63
[2017-04-03 20:09] VITALS: BP 127/67
[2017-04-03] MEDS: DULOXETINE HCL 30 MG CAPSULE.DR GT SCH (21:42)
[2017-04-04 00:18] VITALS: BP 129/67
[2017-04-04] MEDS: ALBUTEROL HALF STRENGTH 1.25 MG/3 ML VIAL.NEB NEB SCH ×4 (01:30→20:14)
[2017-04-04] MEDS: IPRATROPIUM NEB FS 0.5 MG/2.5 ML AMPUL.NEB NEB SCH ×4 (01:30→20:14)
[2017-04-04] MEDS: OMEPRAZOLE 20 MG CAPSULE.DR GT SCH (05:05)
[2017-04-04] MEDS: LEVOTHYROXINE SODIUM 25 MCG TABLET GT SCH (05:05)
[2017-04-04 06:29] VITALS: BP 133/69
[2017-04-04 08:12] VITALS: BP 109/69
[2017-04-04] MEDS: ASCORBIC ACID 500 MG TABLET GT SCH (09:12)
[2017-04-04] MEDS: CYANOCOBALAMIN 500 MCG TABLET GT SCH (09:12)
[2017-04-04] MEDS: ZINC SULFATE 220 MG CAPSULE GT SCH (09:12)
[2017-04-04] MEDS: SENNOSIDES 8.6 MG TABLET GT SCH (09:12)
[2017-04-04] MEDS: ASPIRIN 81 MG TAB.CHEW GT SCH (09:12)
[2017-04-04] MEDS: TOBRAMYCIN/DEXAMETH OPHTH DORPS 2.5 ML BOTTLE EACHEYE SCH ×4 (09:12→20:13)
[2017-04-04] MEDS: FERROUS SULFATE - FOR SA ONLY 330 MG/7.5 ML UDC GT SCH (09:12)
[2017-04-04] MEDS: MECLIZINE HCL 12.5 MG TABLET GT SCH ×2 (09:12→20:13)
[2017-04-04] MEDS: POLYETHYLENE GLYCOL 3350 17 GM POWD.PACK GT SCH (09:12)
[2017-04-04] MEDS: Z GUARD REMEDY 4 OZ OINT TP SCH ×2 (09:13→20:14)
[2017-04-04] MEDS: HYDROGEN PEROXIDE 480 ML BOTTLE TP SCH ×2 (09:13→20:14)
[2017-04-04] MEDS: ENOXAPARIN SODIUM 40 MG/0.4 ML DISP.SYRIN SQ SCH (09:13)
[2017-04-04 15:04] VITALS: BP 122/71
[2017-04-04 18:07] VITALS: BP 113/69
[2017-04-04 20:34] VITALS: BP 114/63
[2017-04-04] MEDS: DULOXETINE HCL 30 MG CAPSULE.DR GT SCH (21:22)
[2017-04-05] VITALS (7 sets, daily range): BP systolic 110–124; BP diastolic 59–82
[2017-04-05] MEDS: IPRATROPIUM NEB FS 0.5 MG/2.5 ML AMPUL.NEB NEB SCH ×4 (02:29→20:25)
[2017-04-05] MEDS: ALBUTEROL HALF STRENGTH 1.25 MG/3 ML VIAL.NEB NEB SCH ×4 (02:29→20:25)
[2017-04-05] MEDS: LEVOTHYROXINE SODIUM 25 MCG TABLET GT SCH (05:24)
[2017-04-05] MEDS: OMEPRAZOLE 20 MG CAPSULE.DR GT SCH (05:24)
[2017-04-05] MEDS: ASCORBIC ACID 500 MG TABLET GT SCH (09:41)
[2017-04-05] MEDS: POLYETHYLENE GLYCOL 3350 17 GM POWD.PACK GT SCH (09:41)
[2017-04-05] MEDS: FERROUS SULFATE - FOR SA ONLY 330 MG/7.5 ML UDC GT SCH (09:41)
[2017-04-05] MEDS: ZINC SULFATE 220 MG CAPSULE GT SCH (09:41)
[2017-04-05] MEDS: ASPIRIN 81 MG TAB.CHEW GT SCH (09:41)
[2017-04-05] MEDS: SENNOSIDES 8.6 MG TABLET GT SCH (09:41)
[2017-04-05] MEDS: CYANOCOBALAMIN 500 MCG TABLET GT SCH (09:41)
[2017-04-05] MEDS: TOBRAMYCIN/DEXAMETH OPHTH DORPS 2.5 ML BOTTLE EACHEYE SCH ×4 (09:41→20:50)
[2017-04-05] MEDS: MECLIZINE HCL 12.5 MG TABLET GT SCH ×2 (09:41→20:50)
[2017-04-05] MEDS: ENOXAPARIN SODIUM 40 MG/0.4 ML DISP.SYRIN SQ SCH (09:42)
[2017-04-05] MEDS: Z GUARD REMEDY 4 OZ OINT TP SCH ×2 (09:42→20:51)
[2017-04-05] MEDS: HYDROGEN PEROXIDE 480 ML BOTTLE TP SCH ×2 (09:42→20:50)
[2017-04-05] MEDS: ONDANSETRON 4 MG TAB.RAPDIS GT PRN (19:29)
[2017-04-05] MEDS: DULOXETINE HCL 30 MG CAPSULE.DR GT SCH (21:27)
[2017-04-05] MEDS: FIBERSOURCE HN 1,000 ML BOTTLE GT PRN (23:28)
[2017-04-06 00:50] VITALS: BP 118/66
[2017-04-06] MEDS: IPRATROPIUM NEB FS 0.5 MG/2.5 ML AMPUL.NEB NEB SCH ×4 (02:20→19:55)
[2017-04-06] MEDS: ALBUTEROL HALF STRENGTH 1.25 MG/3 ML VIAL.NEB NEB SCH ×4 (02:20→19:55)
[2017-04-06 06:16] VITALS: BP 118/68
[2017-04-06] MEDS: LEVOTHYROXINE SODIUM 25 MCG TABLET GT SCH (06:27)
[2017-04-06] MEDS: OMEPRAZOLE 20 MG CAPSULE.DR GT SCH (06:27)
[2017-04-06 07:40] VITALS: BP 129/72
[2017-04-06] MEDS: TOBRAMYCIN/DEXAMETH OPHTH DORPS 2.5 ML BOTTLE EACHEYE SCH ×4 (09:00→20:10)
[2017-04-06] MEDS: ASCORBIC ACID 500 MG TABLET GT SCH (09:00)
[2017-04-06] MEDS: ZINC SULFATE 220 MG CAPSULE GT SCH (09:00)
[2017-04-06] MEDS: CYANOCOBALAMIN 500 MCG TABLET GT SCH (09:00)
[2017-04-06] MEDS: SENNOSIDES 8.6 MG TABLET GT SCH (09:00)
[2017-04-06] MEDS: ENOXAPARIN SODIUM 40 MG/0.4 ML DISP.SYRIN SQ SCH (09:00)
[2017-04-06] MEDS: MECLIZINE HCL 12.5 MG TABLET GT SCH ×2 (09:00→20:10)
[2017-04-06] MEDS: ASPIRIN 81 MG TAB.CHEW GT SCH (09:00)
[2017-04-06] MEDS: FERROUS SULFATE - FOR SA ONLY 330 MG/7.5 ML UDC GT SCH (09:00)
[2017-04-06] MEDS: POLYETHYLENE GLYCOL 3350 17 GM POWD.PACK GT SCH (09:00)
[2017-04-06] MEDS: Z GUARD REMEDY 4 OZ OINT TP SCH ×2 (10:45→20:10)
[2017-04-06] MEDS: HYDROGEN PEROXIDE 480 ML BOTTLE TP SCH ×2 (10:45→20:10)
[2017-04-06 12:00] VITALS: BP 129/72
--- NOTE | 2017-04-06 13:00 | NUR ---
Seen by Dr. Cox. No new order.
--- NOTE | 2017-04-06 14:30 | NUR ---
Seen by ASSISTANT TECHNICIAN Deneen Hankins. Notified her that sometimes pt has gas. Received order to give Simethicone 120 mg GT q 4 hours PRN for gas or bloating.
[2017-04-06 18:00] VITALS: BP 107/69
[2017-04-06] MEDS: FIBERSOURCE HN 1,000 ML BOTTLE GT PRN (18:31)
[2017-04-06 19:53] VITALS: BP 127/55
[2017-04-06] MEDS: DULOXETINE HCL 30 MG CAPSULE.DR GT SCH (21:13)
[2017-04-06] MEDS: SIMETHICONE SUSP 40 MG/0.6 ML BOTTLE GT PRN (21:13)
[2017-04-07 00:08] VITALS: BP 114/64
[2017-04-07] MEDS: IPRATROPIUM NEB FS 0.5 MG/2.5 ML AMPUL.NEB NEB SCH ×4 (00:55→20:05)
[2017-04-07] MEDS: ALBUTEROL HALF STRENGTH 1.25 MG/3 ML VIAL.NEB NEB SCH ×4 (00:55→20:05)
[2017-04-07] MEDS: SIMETHICONE SUSP 40 MG/0.6 ML BOTTLE GT PRN ×2 (05:19→21:35)
[2017-04-07] MEDS: LEVOTHYROXINE SODIUM 25 MCG TABLET GT SCH (05:19)
[2017-04-07] MEDS: OMEPRAZOLE 20 MG CAPSULE.DR GT SCH (05:19)
[2017-04-07 06:06] VITALS: BP 118/68
[2017-04-07 07:46] VITALS: BP 133/66
[2017-04-07] MEDS: SENNOSIDES 8.6 MG TABLET GT SCH (09:50)
[2017-04-07] MEDS: CYANOCOBALAMIN 500 MCG TABLET GT SCH (09:50)
[2017-04-07] MEDS: ASPIRIN 81 MG TAB.CHEW GT SCH (09:50)
[2017-04-07] MEDS: ASCORBIC ACID 500 MG TABLET GT SCH (09:50)
[2017-04-07] MEDS: TOBRAMYCIN/DEXAMETH OPHTH DORPS 2.5 ML BOTTLE EACHEYE SCH ×2 (09:50→12:33)
[2017-04-07] MEDS: POLYETHYLENE GLYCOL 3350 17 GM POWD.PACK GT SCH (09:50)
[2017-04-07] MEDS: FERROUS SULFATE - FOR SA ONLY 330 MG/7.5 ML UDC GT SCH (09:50)
[2017-04-07] MEDS: ZINC SULFATE 220 MG CAPSULE GT SCH (09:50)
[2017-04-07] MEDS: MECLIZINE HCL 12.5 MG TABLET GT SCH ×2 (09:50→21:35)
[2017-04-07] MEDS: ENOXAPARIN SODIUM 40 MG/0.4 ML DISP.SYRIN SQ SCH (09:51)
[2017-04-07] MEDS: HYDROGEN PEROXIDE 480 ML BOTTLE TP SCH ×2 (09:51→21:35)
[2017-04-07] MEDS: Z GUARD REMEDY 4 OZ OINT TP SCH ×2 (09:52→21:35)
[2017-04-07] MEDS: ONDANSETRON 4 MG TAB.RAPDIS GT PRN ×2 (10:04→16:42)
[2017-04-07 12:00] VITALS: BP 112/72
--- NOTE | 2017-04-07 13:43 | NUR ---
Recieved pt on appropriate settings and alarms. Pt responds suctioning, and is awake. Extra trache, and ambubag by bedside. Vent is plugged into red outlet. Pt was suctioned multiple times. Pt is stable with no signs of distress. Loc avina SUPERVISOR INSTRUMENT REPAIR Addendum: 04/07/17 at 1346 by DIANNE AVINA RT Amended: Links added.
[2017-04-07] MEDS: FIBERSOURCE HN 1,000 ML BOTTLE GT PRN (15:25)
[2017-04-07 18:33] VITALS: BP 117/71
[2017-04-07 20:12] VITALS: BP 104/58
[2017-04-07] MEDS: DULOXETINE HCL 30 MG CAPSULE.DR GT SCH (21:35)
[2017-04-08 00:30] VITALS: BP 112/59
[2017-04-08] MEDS: IPRATROPIUM NEB FS 0.5 MG/2.5 ML AMPUL.NEB NEB SCH ×4 (00:44→20:24)
[2017-04-08] MEDS: ALBUTEROL HALF STRENGTH 1.25 MG/3 ML VIAL.NEB NEB SCH ×4 (00:44→20:24)
[2017-04-08] MEDS: LEVOTHYROXINE SODIUM 25 MCG TABLET GT SCH (05:30)
[2017-04-08] MEDS: OMEPRAZOLE 20 MG CAPSULE.DR GT SCH (05:30)
[2017-04-08 06:07] VITALS: BP 116/62
--- NOTE | 2017-04-08 06:35 | NUR ---
Noted pt with 60 ml of coffee ground gastric residual this morning, charge preparation technician nurse called at bs and assessed pt, will notify md, and continue to monitor pt, no n/v noted during shift, no respiratory distress noted, all due meds , gtf and water flushes given, completed and sally am care.
[2017-04-08 07:32] VITALS: BP 114/59
[2017-04-08] MEDS: POLYETHYLENE GLYCOL 3350 17 GM POWD.PACK GT SCH (09:00)
[2017-04-08] MEDS: MECLIZINE HCL 12.5 MG TABLET GT SCH ×2 (09:00→20:07)
[2017-04-08] MEDS: HYDROGEN PEROXIDE 480 ML BOTTLE TP SCH ×2 (09:00→20:07)
[2017-04-08] MEDS: SENNOSIDES 8.6 MG TABLET GT SCH (09:00)
[2017-04-08] MEDS: FERROUS SULFATE - FOR SA ONLY 330 MG/7.5 ML UDC GT SCH (09:00)
[2017-04-08] MEDS: Z GUARD REMEDY 4 OZ OINT TP SCH ×2 (09:00→20:07)
[2017-04-08] MEDS: ASPIRIN 81 MG TAB.CHEW GT SCH (09:00)
[2017-04-08] MEDS: ZINC SULFATE 220 MG CAPSULE GT SCH (09:00)
[2017-04-08] MEDS: ASCORBIC ACID 500 MG TABLET GT SCH (09:00)
[2017-04-08] MEDS: ENOXAPARIN SODIUM 40 MG/0.4 ML DISP.SYRIN SQ SCH (09:00)
[2017-04-08] MEDS: CYANOCOBALAMIN 500 MCG TABLET GT SCH (09:00)
[2017-04-08] MEDS: FIBERSOURCE HN 1,000 ML BOTTLE GT PRN (12:31)
[2017-04-08 12:48] VITALS: BP 129/70
[2017-04-08 18:15] VITALS: BP 123/67
[2017-04-08 19:35] VITALS: BP 121/72
[2017-04-08] MEDS: SIMETHICONE SUSP 40 MG/0.6 ML BOTTLE GT PRN (20:07)
[2017-04-08] MEDS: DULOXETINE HCL 30 MG CAPSULE.DR GT SCH (21:18)
[2017-04-09 00:09] VITALS: BP 117/72
[2017-04-09] MEDS: IPRATROPIUM NEB FS 0.5 MG/2.5 ML AMPUL.NEB NEB SCH ×4 (01:34→19:41)
[2017-04-09] MEDS: ALBUTEROL HALF STRENGTH 1.25 MG/3 ML VIAL.NEB NEB SCH ×4 (01:34→19:41)
--- NOTE | 2017-04-09 03:53 | NUR ---
PATIENT RECEIVED TRACHED ON MECHANICAL VENT. TRACH MIDLINE AND BREATH SOUNDS EQUAL BILATERAL. TREATMENT GIVEN ORDERED AND TOLERATED WELL. NO ADVERSE REACTIONS NOTED. VENTILATOR PLUGGED INTO RED OUTLET AND ALARMS SET AND FUNCTIONING. AMBU BAG AT THE BED SITE.
[2017-04-09] MEDS: OMEPRAZOLE 20 MG CAPSULE.DR GT SCH (05:19)
[2017-04-09] MEDS: LEVOTHYROXINE SODIUM 25 MCG TABLET GT SCH (05:19)
[2017-04-09] MEDS: FIBERSOURCE HN 1,000 ML BOTTLE GT PRN ×2 (05:19→22:14)
[2017-04-09 06:06] VITALS: BP 115/77
[2017-04-09 08:00] VITALS: BP 129/65
[2017-04-09] MEDS: MECLIZINE HCL 12.5 MG TABLET GT SCH ×2 (08:57→21:36)
[2017-04-09] MEDS: ZINC SULFATE 220 MG CAPSULE GT SCH (08:57)
[2017-04-09] MEDS: FERROUS SULFATE - FOR SA ONLY 330 MG/7.5 ML UDC GT SCH (08:57)
[2017-04-09] MEDS: POLYETHYLENE GLYCOL 3350 17 GM POWD.PACK GT SCH (08:57)
[2017-04-09] MEDS: ASPIRIN 81 MG TAB.CHEW GT SCH (08:57)
[2017-04-09] MEDS: ASCORBIC ACID 500 MG TABLET GT SCH (08:57)
[2017-04-09] MEDS: SENNOSIDES 8.6 MG TABLET GT SCH (08:57)
[2017-04-09] MEDS: CYANOCOBALAMIN 500 MCG TABLET GT SCH (08:57)
[2017-04-09] MEDS: HYDROGEN PEROXIDE 480 ML BOTTLE TP SCH ×2 (08:58→21:36)
[2017-04-09] MEDS: Z GUARD REMEDY 4 OZ OINT TP SCH ×2 (08:58→21:36)
[2017-04-09] MEDS: ENOXAPARIN SODIUM 40 MG/0.4 ML DISP.SYRIN SQ SCH (08:58)
[2017-04-09 13:49] VITALS: BP 123/75
[2017-04-09 18:31] VITALS: BP 125/75
[2017-04-09 19:33] VITALS: BP 116/66
[2017-04-09] MEDS: DULOXETINE HCL 30 MG CAPSULE.DR GT SCH (21:36)
[2017-04-10] VITALS: BP 120/63
[2017-04-10] MEDS: CLONIDINE HCL 0.1 MG TABLET GT PRN (00:17)
[2017-04-10] MEDS: IPRATROPIUM NEB FS 0.5 MG/2.5 ML AMPUL.NEB NEB SCH ×4 (01:12→19:50)
[2017-04-10] MEDS: ALBUTEROL HALF STRENGTH 1.25 MG/3 ML VIAL.NEB NEB SCH ×4 (01:12→19:50)
[2017-04-10] MEDS: LEVOTHYROXINE SODIUM 25 MCG TABLET GT SCH (05:45)
[2017-04-10] MEDS: OMEPRAZOLE 20 MG CAPSULE.DR GT SCH (05:45)
[2017-04-10 06:00] VITALS: BP 128/71
[2017-04-10 08:08] VITALS: BP_SYST 116; BP_SYST 122; BP_DIAS 71; BP_DIAS 75
[2017-04-10] MEDS: POLYETHYLENE GLYCOL 3350 17 GM POWD.PACK GT SCH (09:24)
[2017-04-10] MEDS: SENNOSIDES 8.6 MG TABLET GT SCH (09:24)
[2017-04-10] MEDS: ZINC SULFATE 220 MG CAPSULE GT SCH (09:24)
[2017-04-10] MEDS: CYANOCOBALAMIN 500 MCG TABLET GT SCH (09:24)
[2017-04-10] MEDS: ASPIRIN 81 MG TAB.CHEW GT SCH (09:24)
[2017-04-10] MEDS: ASCORBIC ACID 500 MG TABLET GT SCH (09:24)
[2017-04-10] MEDS: FERROUS SULFATE - FOR SA ONLY 330 MG/7.5 ML UDC GT SCH (09:24)
[2017-04-10] MEDS: MECLIZINE HCL 12.5 MG TABLET GT SCH ×2 (09:24→20:35)
[2017-04-10] MEDS: ENOXAPARIN SODIUM 40 MG/0.4 ML DISP.SYRIN SQ SCH (09:25)
[2017-04-10] MEDS: Z GUARD REMEDY 4 OZ OINT TP SCH ×2 (11:00→20:35)
[2017-04-10] MEDS: HYDROGEN PEROXIDE 480 ML BOTTLE TP SCH ×2 (11:00→20:35)
[2017-04-10 12:00] VITALS: BP 122/70
[2017-04-10] MEDS: FIBERSOURCE HN 1,000 ML BOTTLE GT PRN (17:29)
[2017-04-10 18:00] VITALS: BP 119/60
[2017-04-10 19:36] VITALS: BP 128/59
[2017-04-10] MEDS: DULOXETINE HCL 30 MG CAPSULE.DR GT SCH (21:46)
[2017-04-11 00:02] VITALS: BP 122/60
[2017-04-11] MEDS: ONDANSETRON 4 MG TAB.RAPDIS GT PRN ×2 (00:05→18:29)
[2017-04-11] MEDS: ALBUTEROL HALF STRENGTH 1.25 MG/3 ML VIAL.NEB NEB SCH ×4 (02:24→19:45)
[2017-04-11] MEDS: IPRATROPIUM NEB FS 0.5 MG/2.5 ML AMPUL.NEB NEB SCH ×4 (02:24→19:45)
[2017-04-11] MEDS: OMEPRAZOLE 20 MG CAPSULE.DR GT SCH (05:14)
[2017-04-11] MEDS: LEVOTHYROXINE SODIUM 25 MCG TABLET GT SCH (05:14)
[2017-04-11 06:10] VITALS: BP 130/60
[2017-04-11 07:47] VITALS: BP 127/63
--- NOTE | 2017-04-11 08:49 | NUR ---
Late entry for 04/10/[address] John. Notified him that pt had an episode of coffee ground gastric residual on 04/08/17, no further episode noted. No new order.
[2017-04-11] MEDS: MECLIZINE HCL 12.5 MG TABLET GT SCH ×2 (09:25→20:08)
[2017-04-11] MEDS: ASPIRIN 81 MG TAB.CHEW GT SCH (09:26)
[2017-04-11] MEDS: FERROUS SULFATE - FOR SA ONLY 330 MG/7.5 ML UDC GT SCH (09:26)
[2017-04-11] MEDS: ASCORBIC ACID 500 MG TABLET GT SCH (09:27)
[2017-04-11] MEDS: POLYETHYLENE GLYCOL 3350 17 GM POWD.PACK GT SCH (09:27)
[2017-04-11] MEDS: ZINC SULFATE 220 MG CAPSULE GT SCH (09:32)
[2017-04-11] MEDS: SENNOSIDES 8.6 MG TABLET GT SCH (09:35)
[2017-04-11] MEDS: HYDROGEN PEROXIDE 480 ML BOTTLE TP SCH ×2 (09:35→20:08)
[2017-04-11] MEDS: CYANOCOBALAMIN 500 MCG TABLET GT SCH (09:35)
[2017-04-11] MEDS: Z GUARD REMEDY 4 OZ OINT TP SCH ×2 (09:35→20:08)
[2017-04-11] MEDS: ENOXAPARIN SODIUM 40 MG/0.4 ML DISP.SYRIN SQ SCH (09:36)
[2017-04-11 12:00] VITALS: BP 120/65
--- NOTE | 2017-04-11 14:54 | NUR ---
Informed resident's dtr that hairdresser was coming tomorrow. Dtr stated that she wants a haircut for resident.
[2017-04-11] MEDS: FIBERSOURCE HN 1,000 ML BOTTLE GT PRN (16:02)
[2017-04-11 18:00] VITALS: BP 129/70
[2017-04-11 19:45] VITALS: BP 132/79
[2017-04-11] MEDS: DULOXETINE HCL 30 MG CAPSULE.DR GT SCH (21:22)
[2017-04-12 00:33] VITALS: BP 122/60
[2017-04-12] MEDS: ONDANSETRON 4 MG TAB.RAPDIS GT PRN ×2 (00:34→12:47)
[2017-04-12] MEDS: ALBUTEROL HALF STRENGTH 1.25 MG/3 ML VIAL.NEB NEB SCH ×4 (01:12→19:49)
[2017-04-12] MEDS: IPRATROPIUM NEB FS 0.5 MG/2.5 ML AMPUL.NEB NEB SCH ×4 (01:12→19:49)
[2017-04-12] MEDS: LEVOTHYROXINE SODIUM 25 MCG TABLET GT SCH (05:53)
[2017-04-12] MEDS: OMEPRAZOLE 20 MG CAPSULE.DR GT SCH (05:53)
[2017-04-12 06:27] VITALS: BP 130/62
[2017-04-12 07:51] VITALS: BP 128/69
[2017-04-12] MEDS: MECLIZINE HCL 12.5 MG TABLET GT SCH ×2 (08:45→20:27)
[2017-04-12] MEDS: ASPIRIN 81 MG TAB.CHEW GT SCH (08:45)
[2017-04-12] MEDS: CYANOCOBALAMIN 500 MCG TABLET GT SCH (08:45)
[2017-04-12] MEDS: FERROUS SULFATE - FOR SA ONLY 330 MG/7.5 ML UDC GT SCH (08:45)
[2017-04-12] MEDS: SENNOSIDES 8.6 MG TABLET GT SCH (08:45)
[2017-04-12] MEDS: POLYETHYLENE GLYCOL 3350 17 GM POWD.PACK GT SCH (08:45)
[2017-04-12] MEDS: ASCORBIC ACID 500 MG TABLET GT SCH (08:45)
[2017-04-12] MEDS: ZINC SULFATE 220 MG CAPSULE GT SCH (08:46)
[2017-04-12] MEDS: ENOXAPARIN SODIUM 40 MG/0.4 ML DISP.SYRIN SQ SCH (08:46)
[2017-04-12] MEDS: HYDROGEN PEROXIDE 480 ML BOTTLE TP SCH ×2 (08:47→20:27)
[2017-04-12] MEDS: Z GUARD REMEDY 4 OZ OINT TP SCH ×2 (08:47→20:27)
--- NOTE | 2017-04-12 11:49 | NUR ---
Resident had her hair cut by Skyla (hairdresser).
--- NOTE | 2017-04-12 14:25 | NUR ---
RT NOTE: PATIENT HAD A PERIOD OF DESATURATION. PATIENT WAS SUCTIONED TO OBTAIN LARGE AMOUNT OF THIN WHITE SECRETIONS. PATIENT VOMITED LARGE AMOUNT OF ORANGE THIN FLUID. PATIENT'S HEAD IS ELEVATED. SP02 IS NOW 100% ON 40% fi02. NURSE(GISELE) NOTIFIED.
[2017-04-12 15:48] VITALS: BP 128/69
[2017-04-12 18:35] VITALS: BP 128/69
[2017-04-12 19:45] VITALS: BP 146/79
[2017-04-12] MEDS: DULOXETINE HCL 30 MG CAPSULE.DR GT SCH (21:36)
[2017-04-13 00:38] VITALS: BP 120/60
[2017-04-13] MEDS: IPRATROPIUM NEB FS 0.5 MG/2.5 ML AMPUL.NEB NEB SCH ×4 (00:40→20:01)
[2017-04-13] MEDS: ALBUTEROL HALF STRENGTH 1.25 MG/3 ML VIAL.NEB NEB SCH ×4 (00:40→20:01)
[2017-04-13] MEDS: LEVOTHYROXINE SODIUM 25 MCG TABLET GT SCH (05:07)
[2017-04-13] MEDS: OMEPRAZOLE 20 MG CAPSULE.DR GT SCH (05:07)
[2017-04-13 06:22] VITALS: BP 128/62
[2017-04-13 07:40] VITALS: BP 136/68
[2017-04-13] MEDS: FERROUS SULFATE - FOR SA ONLY 330 MG/7.5 ML UDC GT SCH (08:34)
[2017-04-13] MEDS: CYANOCOBALAMIN 500 MCG TABLET GT SCH (08:34)
[2017-04-13] MEDS: SENNOSIDES 8.6 MG TABLET GT SCH (08:34)
[2017-04-13] MEDS: MECLIZINE HCL 12.5 MG TABLET GT SCH ×2 (08:34→20:20)
[2017-04-13] MEDS: ASPIRIN 81 MG TAB.CHEW GT SCH (08:34)
[2017-04-13] MEDS: POLYETHYLENE GLYCOL 3350 17 GM POWD.PACK GT SCH (08:34)
[2017-04-13] MEDS: ASCORBIC ACID 500 MG TABLET GT SCH (08:34)
[2017-04-13] MEDS: ENOXAPARIN SODIUM 40 MG/0.4 ML DISP.SYRIN SQ SCH (08:34)
[2017-04-13] MEDS: ZINC SULFATE 220 MG CAPSULE GT SCH (08:34)
[2017-04-13] MEDS: Z GUARD REMEDY 4 OZ OINT TP SCH ×2 (08:36→20:20)
[2017-04-13] MEDS: HYDROGEN PEROXIDE 480 ML BOTTLE TP SCH ×2 (08:36→20:20)
[2017-04-13] MEDS: ONDANSETRON 4 MG TAB.RAPDIS GT PRN ×2 (08:53→21:57)
--- NOTE | 2017-04-13 10:00 | NUR ---
Pt noted with approximately 15cc of coffee ground gastric residual. No SOB/ no distress noted. Dr. John notified with order to discontinue Lovenox and start patient on SCD machine/ pump. Order noted and carried out. Pt's daughter Cheli notified via voicemail.
[2017-04-13] MEDS: FIBERSOURCE HN 1,000 ML BOTTLE GT PRN (13:23)
[2017-04-13 15:58] VITALS: BP 136/68
[2017-04-13 18:07] VITALS: BP_SYST 122; BP_SYST 136; BP_DIAS 65; BP_DIAS 68
[2017-04-13] MEDS: SIMETHICONE SUSP 40 MG/0.6 ML BOTTLE GT PRN (20:21)
[2017-04-13] MEDS: DULOXETINE HCL 30 MG CAPSULE.DR GT SCH (21:07)
[2017-04-13 21:08] VITALS: BP 126/65
--- NOTE | 2017-04-13 22:04 | NUR ---
Noted resident with approx 50 cc coffee ground emesis, sx'd pt's trach and mouth, kept hob elevated, no s/sx of aspiration noted, no resp distress, Spo2 98 % hr 89, b/p 114/87, gastric residual of 30 cc - coffee ground color, and with abd gas noted, manually vented gt, prn Zofran for n/v given and prn Simethicone for gas given via gt, charge authorizer nurse made aware and assessed pt. Will continue to monitor pt at this time.
[2017-04-14 00:53] VITALS: BP 124/89
[2017-04-14] MEDS: IPRATROPIUM NEB FS 0.5 MG/2.5 ML AMPUL.NEB NEB SCH ×4 (01:48→19:30)
[2017-04-14] MEDS: ALBUTEROL HALF STRENGTH 1.25 MG/3 ML VIAL.NEB NEB SCH ×4 (01:48→19:30)
[2017-04-14] MEDS: LEVOTHYROXINE SODIUM 25 MCG TABLET GT SCH (05:29)
[2017-04-14] MEDS: SIMETHICONE SUSP 40 MG/0.6 ML BOTTLE GT PRN (05:29)
[2017-04-14] MEDS: OMEPRAZOLE 20 MG CAPSULE.DR GT SCH (05:29)
[2017-04-14 06:10] VITALS: BP_DIAS 70
[2017-04-14 07:39] VITALS: BP 119/75
[2017-04-14] MEDS: SENNOSIDES 8.6 MG TABLET GT SCH (08:44)
[2017-04-14] MEDS: POLYETHYLENE GLYCOL 3350 17 GM POWD.PACK GT SCH (08:44)
[2017-04-14] MEDS: ASPIRIN 81 MG TAB.CHEW GT SCH (08:44)
[2017-04-14] MEDS: MECLIZINE HCL 12.5 MG TABLET GT SCH ×2 (08:44→20:52)
[2017-04-14] MEDS: FERROUS SULFATE - FOR SA ONLY 330 MG/7.5 ML UDC GT SCH (08:44)
[2017-04-14] MEDS: HYDROGEN PEROXIDE 480 ML BOTTLE TP SCH ×2 (08:45→20:52)
[2017-04-14] MEDS: Z GUARD REMEDY 4 OZ OINT TP SCH ×2 (08:45→20:52)
[2017-04-14] MEDS: ZINC SULFATE 220 MG CAPSULE GT SCH (08:45)
[2017-04-14] MEDS: ASCORBIC ACID 500 MG TABLET GT SCH (08:45)
[2017-04-14] MEDS: CYANOCOBALAMIN 500 MCG TABLET GT SCH (08:45)
--- NOTE | 2017-04-14 10:59 | NUR ---
Notified Dr. Chris Foreman that resident with episode of coffee ground emesis, asked if he wants CBC and or GI consult. He stated he will review the medications and will order CBC for now, but no GI consult. He was made aware that Lovenox has been discontinued by Dr. John yesterday. He nodded in agreement.
[2017-04-14 11:57] LABS: BASOPHILS % (AUTO) 0.3 % (0.0-2.0); EOSINOPHILS # (AUTO) 0.3 /CMM (0.0-0.7); EOSINOPHILS % (AUTO) 2.8 % (0.0-6.0); HEMATOCRIT 34 % (33-45); HEMOGLOBIN 11.2 g/dL (11.5-14.8); LYMPHOCYTES # (AUTO) 1.7 /CMM (0.8-4.8); LYMPHOCYTES % (AUTO) 15.4 % (20.0-44.0); MEAN CORPUSCULAR HEMOGLOBIN 31 PG (26.0-33.0); MEAN CORPUSCULAR HGB CONC 33 g/dl (31.0-36.0); MEAN CORPUSCULAR VOLUME 93 fL (82-100); MONOCYTES % (AUTO) 8.8 % (2.0-12.0); NEUTROPHILS % (AUTO) 72.7 % (43.0-81.0); PLATELET COUNT (AUTO) 308 /CMM (150-450); RDW COEFFICIENT OF VARIATION 14.6 (11.5-15.0); RED BLOOD CELL COUNT(AUTO) 3.69 MIL/uL (4.0-5.2)
[2017-04-14 14:52] VITALS: BP 119/75
[2017-04-14] MEDS: FIBERSOURCE HN 1,000 ML BOTTLE GT PRN (17:15)
[2017-04-14 18:26] VITALS: BP 122/86
[2017-04-14 19:56] VITALS: BP 124/64
[2017-04-14] MEDS: DULOXETINE HCL 30 MG CAPSULE.DR GT SCH (21:19)
[2017-04-15 00:05] VITALS: BP 118/72
[2017-04-15] MEDS: ALBUTEROL HALF STRENGTH 1.25 MG/3 ML VIAL.NEB NEB SCH ×4 (01:02→19:47)
[2017-04-15] MEDS: IPRATROPIUM NEB FS 0.5 MG/2.5 ML AMPUL.NEB NEB SCH ×4 (01:02→19:47)
[2017-04-15] MEDS: LEVOTHYROXINE SODIUM 25 MCG TABLET GT SCH (05:13)
[2017-04-15] MEDS: OMEPRAZOLE 20 MG CAPSULE.DR GT SCH (05:13)
[2017-04-15] MEDS: SIMETHICONE SUSP 40 MG/0.6 ML BOTTLE GT PRN ×2 (05:13→20:43)
[2017-04-15 06:05] VITALS: BP 116/65
[2017-04-15 07:36] VITALS: BP 126/65
[2017-04-15] MEDS: SENNOSIDES 8.6 MG TABLET GT SCH (09:09)
[2017-04-15] MEDS: ZINC SULFATE 220 MG CAPSULE GT SCH (09:09)
[2017-04-15] MEDS: Z GUARD REMEDY 4 OZ OINT TP SCH ×2 (09:09→20:43)
[2017-04-15] MEDS: POLYETHYLENE GLYCOL 3350 17 GM POWD.PACK GT SCH (09:09)
[2017-04-15] MEDS: FERROUS SULFATE - FOR SA ONLY 330 MG/7.5 ML UDC GT SCH (09:09)
[2017-04-15] MEDS: HYDROGEN PEROXIDE 480 ML BOTTLE TP SCH ×2 (09:09→20:43)
[2017-04-15] MEDS: CYANOCOBALAMIN 500 MCG TABLET GT SCH (09:09)
[2017-04-15] MEDS: MECLIZINE HCL 12.5 MG TABLET GT SCH ×2 (09:09→20:43)
[2017-04-15] MEDS: ASCORBIC ACID 500 MG TABLET GT SCH (09:09)
[2017-04-15 15:40] VITALS: BP 111/70
[2017-04-15 18:31] VITALS: BP 118/65
[2017-04-15 19:51] VITALS: BP 140/69
[2017-04-15] MEDS: DULOXETINE HCL 30 MG CAPSULE.DR GT SCH (21:15)
[2017-04-16 00:52] VITALS: BP 120/58
[2017-04-16] MEDS: IPRATROPIUM NEB FS 0.5 MG/2.5 ML AMPUL.NEB NEB SCH ×4 (01:16→20:08)
[2017-04-16] MEDS: ALBUTEROL HALF STRENGTH 1.25 MG/3 ML VIAL.NEB NEB SCH ×4 (01:16→20:08)
[2017-04-16] MEDS: LEVOTHYROXINE SODIUM 25 MCG TABLET GT SCH (05:07)
[2017-04-16] MEDS: OMEPRAZOLE 20 MG CAPSULE.DR GT SCH (05:07)
[2017-04-16] MEDS: FIBERSOURCE HN 1,000 ML BOTTLE GT PRN ×3 (05:07→23:36)
[2017-04-16 06:04] VITALS: BP 121/72
[2017-04-16 07:30] VITALS: BP 101/77
[2017-04-16] MEDS: SENNOSIDES 8.6 MG TABLET GT SCH (09:00)
[2017-04-16] MEDS: MECLIZINE HCL 12.5 MG TABLET GT SCH ×2 (09:00→21:05)
[2017-04-16] MEDS: HYDROGEN PEROXIDE 480 ML BOTTLE TP SCH ×2 (09:00→21:05)
[2017-04-16] MEDS: POLYETHYLENE GLYCOL 3350 17 GM POWD.PACK GT SCH (09:00)
[2017-04-16] MEDS: FERROUS SULFATE - FOR SA ONLY 330 MG/7.5 ML UDC GT SCH (09:00)
[2017-04-16] MEDS: ZINC SULFATE 220 MG CAPSULE GT SCH (09:00)
[2017-04-16] MEDS: CYANOCOBALAMIN 500 MCG TABLET GT SCH (09:00)
[2017-04-16] MEDS: ASCORBIC ACID 500 MG TABLET GT SCH (09:00)
[2017-04-16] MEDS: Z GUARD REMEDY 4 OZ OINT TP SCH ×2 (09:00→21:05)
[2017-04-16 13:43] VITALS: BP 110/71
[2017-04-16 18:30] VITALS: BP 120/67
[2017-04-16 20:00] VITALS: BP 131/62
[2017-04-16] MEDS: DULOXETINE HCL 30 MG CAPSULE.DR GT SCH (21:05)
[2017-04-17 00:42] VITALS: BP 124/65
[2017-04-17] MEDS: IPRATROPIUM NEB FS 0.5 MG/2.5 ML AMPUL.NEB NEB SCH ×4 (00:55→20:02)
[2017-04-17] MEDS: ALBUTEROL HALF STRENGTH 1.25 MG/3 ML VIAL.NEB NEB SCH ×4 (00:55→20:02)
[2017-04-17] MEDS: LEVOTHYROXINE SODIUM 25 MCG TABLET GT SCH (05:47)
[2017-04-17] MEDS: OMEPRAZOLE 20 MG CAPSULE.DR GT SCH (05:47)
[2017-04-17 06:25] VITALS: BP 118/62
[2017-04-17 07:54] VITALS: BP 120/71
[2017-04-17] MEDS: Z GUARD REMEDY 4 OZ OINT TP SCH ×2 (09:00→20:46)
[2017-04-17] MEDS: MECLIZINE HCL 12.5 MG TABLET GT SCH ×2 (09:00→20:46)
[2017-04-17] MEDS: FERROUS SULFATE - FOR SA ONLY 330 MG/7.5 ML UDC GT SCH (09:00)
[2017-04-17] MEDS: ZINC SULFATE 220 MG CAPSULE GT SCH (09:00)
[2017-04-17] MEDS: ASCORBIC ACID 500 MG TABLET GT SCH (09:00)
[2017-04-17] MEDS: HYDROGEN PEROXIDE 480 ML BOTTLE TP SCH ×2 (09:00→20:46)
[2017-04-17] MEDS: SENNOSIDES 8.6 MG TABLET GT SCH (09:00)
[2017-04-17] MEDS: POLYETHYLENE GLYCOL 3350 17 GM POWD.PACK GT SCH (09:00)
[2017-04-17] MEDS: CYANOCOBALAMIN 500 MCG TABLET GT SCH (09:00)
[2017-04-17 17:07] VITALS: BP 120/67
[2017-04-17 18:15] VITALS: BP 120/67
[2017-04-17] MEDS: FIBERSOURCE HN 1,000 ML BOTTLE GT PRN (18:40)
[2017-04-17 19:38] VITALS: BP 114/60
[2017-04-17] MEDS: DULOXETINE HCL 30 MG CAPSULE.DR GT SCH (21:43)
[2017-04-18] VITALS: BP 114/60
[2017-04-18] MEDS: IPRATROPIUM NEB FS 0.5 MG/2.5 ML AMPUL.NEB NEB SCH ×4 (00:52→20:09)
[2017-04-18] MEDS: ALBUTEROL HALF STRENGTH 1.25 MG/3 ML VIAL.NEB NEB SCH ×4 (00:52→20:09)
[2017-04-18] MEDS: LEVOTHYROXINE SODIUM 25 MCG TABLET GT SCH (05:45)
[2017-04-18] MEDS: OMEPRAZOLE 20 MG CAPSULE.DR GT SCH (05:45)
[2017-04-18 06:00] VITALS: BP 121/70
[2017-04-18 07:48] VITALS: BP 136/77
[2017-04-18] MEDS: FERROUS SULFATE - FOR SA ONLY 330 MG/7.5 ML UDC GT SCH (09:00)
[2017-04-18] MEDS: SENNOSIDES 8.6 MG TABLET GT SCH (09:00)
[2017-04-18] MEDS: CYANOCOBALAMIN 500 MCG TABLET GT SCH (09:00)
[2017-04-18] MEDS: ZINC SULFATE 220 MG CAPSULE GT SCH (09:00)
[2017-04-18] MEDS: HYDROGEN PEROXIDE 480 ML BOTTLE TP SCH ×2 (09:00→20:06)
[2017-04-18] MEDS: Z GUARD REMEDY 4 OZ OINT TP SCH ×2 (09:00→20:06)
[2017-04-18] MEDS: ASCORBIC ACID 500 MG TABLET GT SCH (09:00)
[2017-04-18] MEDS: POLYETHYLENE GLYCOL 3350 17 GM POWD.PACK GT SCH (09:00)
[2017-04-18] MEDS: MECLIZINE HCL 12.5 MG TABLET GT SCH ×2 (09:00→20:06)
[2017-04-18 17:58] VITALS: BP 118/69
[2017-04-18 18:41] VITALS: BP 118/69
[2017-04-18 19:46] VITALS: BP 128/63
[2017-04-18] MEDS: DULOXETINE HCL 30 MG CAPSULE.DR GT SCH (21:27)
[2017-04-19 00:36] VITALS: BP 135/72
[2017-04-19] MEDS: ALBUTEROL HALF STRENGTH 1.25 MG/3 ML VIAL.NEB NEB SCH ×4 (01:44→20:09)
[2017-04-19] MEDS: IPRATROPIUM NEB FS 0.5 MG/2.5 ML AMPUL.NEB NEB SCH ×4 (01:44→20:09)
[2017-04-19] MEDS: OMEPRAZOLE 20 MG CAPSULE.DR GT SCH (05:44)
[2017-04-19] MEDS: LEVOTHYROXINE SODIUM 25 MCG TABLET GT SCH (05:44)
[2017-04-19 06:21] VITALS: BP 122/70
[2017-04-19 07:40] VITALS: BP 113/56
[2017-04-19] MEDS: SENNOSIDES 8.6 MG TABLET GT SCH (08:49)
[2017-04-19] MEDS: FERROUS SULFATE - FOR SA ONLY 330 MG/7.5 ML UDC GT SCH (08:49)
[2017-04-19] MEDS: ZINC SULFATE 220 MG CAPSULE GT SCH (08:49)
[2017-04-19] MEDS: ASCORBIC ACID 500 MG TABLET GT SCH (08:49)
[2017-04-19] MEDS: CYANOCOBALAMIN 500 MCG TABLET GT SCH (08:49)
[2017-04-19] MEDS: POLYETHYLENE GLYCOL 3350 17 GM POWD.PACK GT SCH (08:49)
[2017-04-19] MEDS: Z GUARD REMEDY 4 OZ OINT TP SCH ×2 (08:51→20:27)
[2017-04-19] MEDS: HYDROGEN PEROXIDE 480 ML BOTTLE TP SCH ×2 (08:51→20:27)
[2017-04-19] MEDS: MECLIZINE HCL 12.5 MG TABLET GT SCH ×2 (09:02→20:27)
[2017-04-19] MEDS: FIBERSOURCE HN 1,000 ML BOTTLE GT PRN (13:07)
[2017-04-19 13:21] VITALS: BP 113/56
[2017-04-19 18:20] VITALS: BP 122/66
[2017-04-19] MEDS: DULOXETINE HCL 30 MG CAPSULE.DR GT SCH (21:27)
[2017-04-20] VITALS (7 sets, daily range): BP systolic 126–139; BP diastolic 60–99
[2017-04-20] MEDS: IPRATROPIUM NEB FS 0.5 MG/2.5 ML AMPUL.NEB NEB SCH ×4 (01:03→20:17)
[2017-04-20] MEDS: ALBUTEROL HALF STRENGTH 1.25 MG/3 ML VIAL.NEB NEB SCH ×4 (01:03→20:17)
[2017-04-20] MEDS: LEVOTHYROXINE SODIUM 25 MCG TABLET GT SCH (05:26)
[2017-04-20] MEDS: OMEPRAZOLE 20 MG CAPSULE.DR GT SCH (05:26)
[2017-04-20] MEDS: FIBERSOURCE HN 1,000 ML BOTTLE GT PRN ×2 (06:25→23:57)
[2017-04-20] MEDS: CYANOCOBALAMIN 500 MCG TABLET GT SCH (09:29)
[2017-04-20] MEDS: POLYETHYLENE GLYCOL 3350 17 GM POWD.PACK GT SCH (09:29)
[2017-04-20] MEDS: ZINC SULFATE 220 MG CAPSULE GT SCH (09:29)
[2017-04-20] MEDS: HYDROGEN PEROXIDE 480 ML BOTTLE TP SCH ×2 (09:29→21:48)
[2017-04-20] MEDS: MECLIZINE HCL 12.5 MG TABLET GT SCH ×2 (09:29→21:48)
[2017-04-20] MEDS: SENNOSIDES 8.6 MG TABLET GT SCH (09:29)
[2017-04-20] MEDS: ASCORBIC ACID 500 MG TABLET GT SCH (09:29)
[2017-04-20] MEDS: FERROUS SULFATE - FOR SA ONLY 330 MG/7.5 ML UDC GT SCH (09:29)
[2017-04-20] MEDS: Z GUARD REMEDY 4 OZ OINT TP SCH ×2 (09:29→21:48)
[2017-04-20] MEDS: SIMETHICONE SUSP 40 MG/0.6 ML BOTTLE GT PRN (09:30)
[2017-04-20] MEDS: DULOXETINE HCL 30 MG CAPSULE.DR GT SCH (21:48)
[2017-04-20] MEDS: ONDANSETRON 4 MG TAB.RAPDIS GT PRN (21:58)
[2017-04-21] VITALS: BP 125/73
[2017-04-21] MEDS: CLONIDINE HCL 0.1 MG TABLET GT PRN (00:27)
[2017-04-21] MEDS: ALBUTEROL HALF STRENGTH 1.25 MG/3 ML VIAL.NEB NEB SCH ×4 (01:30→20:05)
[2017-04-21] MEDS: IPRATROPIUM NEB FS 0.5 MG/2.5 ML AMPUL.NEB NEB SCH ×4 (01:30→20:05)
[2017-04-21] MEDS: LEVOTHYROXINE SODIUM 25 MCG TABLET GT SCH (05:44)
[2017-04-21] MEDS: OMEPRAZOLE 20 MG CAPSULE.DR GT SCH (05:44)
[2017-04-21 06:00] VITALS: BP 119/70
[2017-04-21 07:43] VITALS: BP 115/70
[2017-04-21] MEDS: POLYETHYLENE GLYCOL 3350 17 GM POWD.PACK GT SCH (08:54)
[2017-04-21] MEDS: ASCORBIC ACID 500 MG TABLET GT SCH (08:54)
[2017-04-21] MEDS: MECLIZINE HCL 12.5 MG TABLET GT SCH ×2 (08:54→20:35)
[2017-04-21] MEDS: CYANOCOBALAMIN 500 MCG TABLET GT SCH (08:54)
[2017-04-21] MEDS: HYDROGEN PEROXIDE 480 ML BOTTLE TP SCH ×2 (08:54→20:35)
[2017-04-21] MEDS: SENNOSIDES 8.6 MG TABLET GT SCH (08:54)
[2017-04-21] MEDS: FERROUS SULFATE - FOR SA ONLY 330 MG/7.5 ML UDC GT SCH (08:54)
[2017-04-21] MEDS: ZINC SULFATE 220 MG CAPSULE GT SCH (08:54)
[2017-04-21] MEDS: Z GUARD REMEDY 4 OZ OINT TP SCH ×2 (08:55→20:35)
[2017-04-21 13:49] VITALS: BP 115/70
--- NOTE | 2017-04-21 14:13 | NUR ---
IDT meeting held, family unable to attend. Current orders, new medications and treatments reviewed by the team. RNA reported that patient is refusing to wear hand splints. PT will reassess the need for hand splints & discontinue if needed.
[2017-04-21 18:13] VITALS: BP_SYST 115; BP_SYST 118; BP_DIAS 69; BP_DIAS 70
[2017-04-21 20:07] VITALS: BP 120/68
[2017-04-21] MEDS: DULOXETINE HCL 30 MG CAPSULE.DR GT SCH (22:13)
[2017-04-21] MEDS: FIBERSOURCE HN 1,000 ML BOTTLE GT PRN (22:30)
[2017-04-22] VITALS: BP 139/76
[2017-04-22] MEDS: IPRATROPIUM NEB FS 0.5 MG/2.5 ML AMPUL.NEB NEB SCH ×4 (02:15→20:18)
[2017-04-22] MEDS: ALBUTEROL HALF STRENGTH 1.25 MG/3 ML VIAL.NEB NEB SCH ×4 (02:15→20:18)
[2017-04-22 06:00] VITALS: BP 136/78
[2017-04-22] MEDS: LEVOTHYROXINE SODIUM 25 MCG TABLET GT SCH (06:13)
[2017-04-22] MEDS: OMEPRAZOLE 20 MG CAPSULE.DR GT SCH (06:13)
[2017-04-22 07:32] VITALS: BP 135/73
[2017-04-22] MEDS: MECLIZINE HCL 12.5 MG TABLET GT SCH ×2 (09:00→21:36)
[2017-04-22] MEDS: ASCORBIC ACID 500 MG TABLET GT SCH (09:00)
[2017-04-22] MEDS: POLYETHYLENE GLYCOL 3350 17 GM POWD.PACK GT SCH (09:00)
[2017-04-22] MEDS: ZINC SULFATE 220 MG CAPSULE GT SCH (09:00)
[2017-04-22] MEDS: CYANOCOBALAMIN 500 MCG TABLET GT SCH (09:00)
[2017-04-22] MEDS: FERROUS SULFATE - FOR SA ONLY 330 MG/7.5 ML UDC GT SCH (09:00)
[2017-04-22] MEDS: SENNOSIDES 8.6 MG TABLET GT SCH (09:00)
[2017-04-22 12:00] VITALS: BP 122/84
[2017-04-22] MEDS: Z GUARD REMEDY 4 OZ OINT TP SCH ×2 (12:30→21:36)
[2017-04-22] MEDS: HYDROGEN PEROXIDE 480 ML BOTTLE TP SCH ×2 (12:30→21:36)
[2017-04-22] MEDS: FIBERSOURCE HN 1,000 ML BOTTLE GT PRN (16:03)
[2017-04-22 18:00] VITALS: BP 141/86
[2017-04-22 19:59] VITALS: BP 137/67
[2017-04-22] MEDS: DULOXETINE HCL 30 MG CAPSULE.DR GT SCH (21:36)
[2017-04-23] VITALS: BP 118/67
[2017-04-23] MEDS: ALBUTEROL HALF STRENGTH 1.25 MG/3 ML VIAL.NEB NEB SCH ×4 (02:17→21:00)
[2017-04-23] MEDS: IPRATROPIUM NEB FS 0.5 MG/2.5 ML AMPUL.NEB NEB SCH ×4 (02:17→21:00)
[2017-04-23] MEDS: FIBERSOURCE HN 1,000 ML BOTTLE GT PRN (04:43)
[2017-04-23 06:00] VITALS: BP 120/78
[2017-04-23] MEDS: LEVOTHYROXINE SODIUM 25 MCG TABLET GT SCH (06:35)
[2017-04-23] MEDS: OMEPRAZOLE 20 MG CAPSULE.DR GT SCH (06:35)
[2017-04-23] MEDS: Z GUARD REMEDY 4 OZ OINT TP SCH ×2 (09:00→21:20)
[2017-04-23] MEDS: HYDROGEN PEROXIDE 480 ML BOTTLE TP SCH ×2 (09:00→21:20)
[2017-04-23] MEDS: ZINC SULFATE 220 MG CAPSULE GT SCH (09:00)
[2017-04-23] MEDS: ASCORBIC ACID 500 MG TABLET GT SCH (09:00)
[2017-04-23] MEDS: FERROUS SULFATE - FOR SA ONLY 330 MG/7.5 ML UDC GT SCH (09:00)
[2017-04-23] MEDS: MECLIZINE HCL 12.5 MG TABLET GT SCH ×2 (09:00→21:19)
[2017-04-23] MEDS: POLYETHYLENE GLYCOL 3350 17 GM POWD.PACK GT SCH (09:00)
[2017-04-23] MEDS: SENNOSIDES 8.6 MG TABLET GT SCH (09:00)
[2017-04-23] MEDS: CYANOCOBALAMIN 500 MCG TABLET GT SCH (09:00)
[2017-04-23 15:45] VITALS: BP 141/86
[2017-04-23 18:14] VITALS: BP 121/81
[2017-04-23 19:44] VITALS: BP 102/62
[2017-04-23] MEDS: DULOXETINE HCL 30 MG CAPSULE.DR GT SCH (21:20)
[2017-04-23 23:22] VITALS: BP 119/69
[2017-04-24 00:02] VITALS: BP 129/62
[2017-04-24] MEDS: ALBUTEROL HALF STRENGTH 1.25 MG/3 ML VIAL.NEB NEB SCH ×4 (01:33→19:30)
[2017-04-24] MEDS: IPRATROPIUM NEB FS 0.5 MG/2.5 ML AMPUL.NEB NEB SCH ×4 (01:33→19:30)
[2017-04-24] MEDS: OMEPRAZOLE 20 MG CAPSULE.DR GT SCH (05:51)
[2017-04-24] MEDS: LEVOTHYROXINE SODIUM 25 MCG TABLET GT SCH (05:51)
[2017-04-24 06:02] VITALS: BP 112/60
[2017-04-24 07:25] VITALS: BP 126/63
[2017-04-24] MEDS: ASCORBIC ACID 500 MG TABLET GT SCH (09:00)
[2017-04-24] MEDS: MECLIZINE HCL 12.5 MG TABLET GT SCH ×2 (09:00→21:10)
[2017-04-24] MEDS: POLYETHYLENE GLYCOL 3350 17 GM POWD.PACK GT SCH (09:00)
[2017-04-24] MEDS: ZINC SULFATE 220 MG CAPSULE GT SCH (09:00)
[2017-04-24] MEDS: SENNOSIDES 8.6 MG TABLET GT SCH (09:00)
[2017-04-24] MEDS: CYANOCOBALAMIN 500 MCG TABLET GT SCH (09:00)
[2017-04-24] MEDS: FERROUS SULFATE - FOR SA ONLY 330 MG/7.5 ML UDC GT SCH (09:00)
[2017-04-24 12:00] VITALS: BP 122/66
[2017-04-24] MEDS: HYDROGEN PEROXIDE 480 ML BOTTLE TP SCH ×2 (14:00→21:10)
[2017-04-24] MEDS: Z GUARD REMEDY 4 OZ OINT TP SCH ×2 (15:00→21:10)
[2017-04-24 18:00] VITALS: BP 140/50
[2017-04-24] MEDS: DULOXETINE HCL 30 MG CAPSULE.DR GT SCH (21:10)
[2017-04-25] MEDS: IPRATROPIUM NEB FS 0.5 MG/2.5 ML AMPUL.NEB NEB SCH ×4 (01:59→19:30)
[2017-04-25] MEDS: ALBUTEROL HALF STRENGTH 1.25 MG/3 ML VIAL.NEB NEB SCH ×4 (01:59→19:30)
[2017-04-25 04:22] VITALS: BP 119/69
[2017-04-25] MEDS: OMEPRAZOLE 20 MG CAPSULE.DR GT SCH (05:41)
[2017-04-25] MEDS: LEVOTHYROXINE SODIUM 25 MCG TABLET GT SCH (05:41)
[2017-04-25 06:06] VITALS: BP 114/62
[2017-04-25] MEDS: SENNOSIDES 8.6 MG TABLET GT SCH (09:00)
[2017-04-25] MEDS: MECLIZINE HCL 12.5 MG TABLET GT SCH ×2 (09:00→21:21)
[2017-04-25] MEDS: CYANOCOBALAMIN 500 MCG TABLET GT SCH (09:00)
[2017-04-25] MEDS: ASCORBIC ACID 500 MG TABLET GT SCH (09:00)
[2017-04-25] MEDS: POLYETHYLENE GLYCOL 3350 17 GM POWD.PACK GT SCH (09:00)
[2017-04-25] MEDS: FERROUS SULFATE - FOR SA ONLY 330 MG/7.5 ML UDC GT SCH (09:00)
[2017-04-25] MEDS: ZINC SULFATE 220 MG CAPSULE GT SCH (09:00)
[2017-04-25] MEDS: HYDROGEN PEROXIDE 480 ML BOTTLE TP SCH ×2 (11:00→21:21)
[2017-04-25] MEDS: Z GUARD REMEDY 4 OZ OINT TP SCH ×2 (11:00→21:21)
[2017-04-25 12:00] VITALS: BP 122/62
[2017-04-25 18:00] VITALS: BP 122/73
[2017-04-25] MEDS: FIBERSOURCE HN 1,000 ML BOTTLE GT PRN (18:32)
[2017-04-25 19:29] VITALS: BP 118/65
[2017-04-25] MEDS: DULOXETINE HCL 30 MG CAPSULE.DR GT SCH (21:21)
[2017-04-26 00:03] VITALS: BP 128/69
[2017-04-26] MEDS: ALBUTEROL HALF STRENGTH 1.25 MG/3 ML VIAL.NEB NEB SCH ×4 (01:34→19:26)
[2017-04-26] MEDS: IPRATROPIUM NEB FS 0.5 MG/2.5 ML AMPUL.NEB NEB SCH ×4 (01:34→19:26)
[2017-04-26] MEDS: OMEPRAZOLE 20 MG CAPSULE.DR GT SCH (05:46)
[2017-04-26] MEDS: LEVOTHYROXINE SODIUM 25 MCG TABLET GT SCH (05:46)
[2017-04-26 06:42] VITALS: BP 106/62
[2017-04-26 07:32] VITALS: BP 104/61
[2017-04-26] MEDS: SENNOSIDES 8.6 MG TABLET GT SCH (09:00)
[2017-04-26] MEDS: HYDROGEN PEROXIDE 480 ML BOTTLE TP SCH ×2 (09:00→21:21)
[2017-04-26] MEDS: CYANOCOBALAMIN 500 MCG TABLET GT SCH (09:00)
[2017-04-26] MEDS: POLYETHYLENE GLYCOL 3350 17 GM POWD.PACK GT SCH (09:00)
[2017-04-26] MEDS: MECLIZINE HCL 12.5 MG TABLET GT SCH ×2 (09:00→21:21)
[2017-04-26] MEDS: Z GUARD REMEDY 4 OZ OINT TP SCH ×2 (09:00→21:21)
[2017-04-26] MEDS: FERROUS SULFATE - FOR SA ONLY 330 MG/7.5 ML UDC GT SCH (09:00)
[2017-04-26] MEDS: ZINC SULFATE 220 MG CAPSULE GT SCH (09:00)
[2017-04-26] MEDS: ASCORBIC ACID 500 MG TABLET GT SCH (09:00)
[2017-04-26 18:26] VITALS: BP 104/61
[2017-04-26] MEDS: FIBERSOURCE HN 1,000 ML BOTTLE GT PRN (19:00)
[2017-04-26 20:00] VITALS: BP 102/62
[2017-04-26] MEDS: DULOXETINE HCL 30 MG CAPSULE.DR GT SCH (21:21)
[2017-04-26] MEDS: SIMETHICONE SUSP 40 MG/0.6 ML BOTTLE GT PRN (21:22)
[2017-04-27 00:48] VITALS: BP 117/56
[2017-04-27] MEDS: IPRATROPIUM NEB FS 0.5 MG/2.5 ML AMPUL.NEB NEB SCH ×4 (02:17→19:29)
[2017-04-27] MEDS: ALBUTEROL HALF STRENGTH 1.25 MG/3 ML VIAL.NEB NEB SCH ×4 (02:17→19:29)
[2017-04-27] MEDS: OMEPRAZOLE 20 MG CAPSULE.DR GT SCH (05:19)
[2017-04-27] MEDS: LEVOTHYROXINE SODIUM 25 MCG TABLET GT SCH (05:19)
[2017-04-27 06:06] VITALS: BP 119/68
[2017-04-27 07:20] VITALS: BP 135/72
[2017-04-27] MEDS: MECLIZINE HCL 12.5 MG TABLET GT SCH ×2 (09:49→20:35)
[2017-04-27] MEDS: CYANOCOBALAMIN 500 MCG TABLET GT SCH (09:49)
[2017-04-27] MEDS: SENNOSIDES 8.6 MG TABLET GT SCH (09:49)
[2017-04-27] MEDS: ZINC SULFATE 220 MG CAPSULE GT SCH (09:49)
[2017-04-27] MEDS: FERROUS SULFATE - FOR SA ONLY 330 MG/7.5 ML UDC GT SCH (09:49)
[2017-04-27] MEDS: ASCORBIC ACID 500 MG TABLET GT SCH (09:49)
[2017-04-27] MEDS: POLYETHYLENE GLYCOL 3350 17 GM POWD.PACK GT SCH (09:49)
[2017-04-27] MEDS: Z GUARD REMEDY 4 OZ OINT TP SCH ×2 (11:45→20:36)
[2017-04-27] MEDS: HYDROGEN PEROXIDE 480 ML BOTTLE TP SCH ×2 (11:45→20:36)
[2017-04-27 12:00] VITALS: BP 130/77
[2017-04-27] MEDS: FIBERSOURCE HN 1,000 ML BOTTLE GT PRN (12:30)
[2017-04-27 18:00] VITALS: BP 114/71
[2017-04-27 20:00] VITALS: BP 112/65
[2017-04-27] MEDS: DULOXETINE HCL 30 MG CAPSULE.DR GT SCH (21:08)
[2017-04-27] MEDS: SIMETHICONE SUSP 40 MG/0.6 ML BOTTLE GT PRN (21:09)
[2017-04-28 00:05] VITALS: BP 122/74
[2017-04-28] MEDS: IPRATROPIUM NEB FS 0.5 MG/2.5 ML AMPUL.NEB NEB SCH ×4 (01:47→19:25)
[2017-04-28] MEDS: ALBUTEROL HALF STRENGTH 1.25 MG/3 ML VIAL.NEB NEB SCH ×4 (01:47→19:25)
[2017-04-28] MEDS: FIBERSOURCE HN 1,000 ML BOTTLE GT PRN ×2 (05:20→23:57)
[2017-04-28] MEDS: LEVOTHYROXINE SODIUM 25 MCG TABLET GT SCH (05:20)
[2017-04-28] MEDS: OMEPRAZOLE 20 MG CAPSULE.DR GT SCH (05:20)
[2017-04-28 06:03] VITALS: BP 118/72
[2017-04-28 07:58] VITALS: BP 130/78
[2017-04-28] MEDS: MECLIZINE HCL 12.5 MG TABLET GT SCH ×2 (08:12→21:43)
[2017-04-28] MEDS: SENNOSIDES 8.6 MG TABLET GT SCH (08:12)
[2017-04-28] MEDS: POLYETHYLENE GLYCOL 3350 17 GM POWD.PACK GT SCH (08:12)
[2017-04-28] MEDS: CYANOCOBALAMIN 500 MCG TABLET GT SCH (08:12)
[2017-04-28] MEDS: ASCORBIC ACID 500 MG TABLET GT SCH (08:12)
[2017-04-28] MEDS: FERROUS SULFATE - FOR SA ONLY 330 MG/7.5 ML UDC GT SCH (08:12)
[2017-04-28] MEDS: ZINC SULFATE 220 MG CAPSULE GT SCH (08:12)
[2017-04-28] MEDS: ONDANSETRON 4 MG TAB.RAPDIS GT PRN (08:50)
[2017-04-28] MEDS: Z GUARD REMEDY 4 OZ OINT TP SCH ×2 (11:00→21:44)
[2017-04-28] MEDS: HYDROGEN PEROXIDE 480 ML BOTTLE TP SCH ×2 (11:00→21:43)
--- NOTE | 2017-04-28 11:31 | NUR ---
Reported to Dr. Chris Foreman that resident has frequent episode of vomiting, no gastric residual but mostly gas. Resident on PRN Zofran, it's effect lasting for a short time only. stated that he will review medications and will order in [facility]. MD Foreman made aware that in the past patient is receiving Reglan but was discontinued due to interaction with Cymbalta. He said he will take a look at it.
[2017-04-28 12:00] VITALS: BP 109/73
[2017-04-28] MEDS: METOCLOPRAMIDE HCL 10 MG/10 ML UDC PO SCH (17:00)
[2017-04-28 18:00] VITALS: BP 132/74
[2017-04-28 19:41] VITALS: BP 130/75
[2017-04-28] MEDS: SIMETHICONE SUSP 40 MG/0.6 ML BOTTLE GT PRN (21:44)
[2017-04-28] MEDS: DULOXETINE HCL 30 MG CAPSULE.DR GT SCH (21:44)
--- NOTE | 2017-04-28 21:46 | NUR ---
Patient received trached on mechanical vent. Breath sounds equal bilateral. Tx given as ordered and tolerated well. No adverse reactions noted. Vent plugged into red outlet and alarms set and functioning.
[2017-04-29] MEDS: IPRATROPIUM NEB FS 0.5 MG/2.5 ML AMPUL.NEB NEB SCH ×4 (00:50→19:41)
[2017-04-29] MEDS: ALBUTEROL HALF STRENGTH 1.25 MG/3 ML VIAL.NEB NEB SCH ×4 (00:50→19:41)
[2017-04-29 01:04] VITALS: BP 122/74
[2017-04-29] MEDS: OMEPRAZOLE 20 MG CAPSULE.DR GT SCH (05:39)
[2017-04-29] MEDS: LEVOTHYROXINE SODIUM 25 MCG TABLET GT SCH (05:39)
[2017-04-29 06:08] VITALS: BP 119/70
[2017-04-29 07:41] VITALS: BP 118/59
[2017-04-29] MEDS: ZINC SULFATE 220 MG CAPSULE GT SCH (09:54)
[2017-04-29] MEDS: ASCORBIC ACID 500 MG TABLET GT SCH (09:54)
[2017-04-29] MEDS: CYANOCOBALAMIN 500 MCG TABLET GT SCH (09:54)
[2017-04-29] MEDS: SENNOSIDES 8.6 MG TABLET GT SCH (09:54)
[2017-04-29] MEDS: FERROUS SULFATE - FOR SA ONLY 330 MG/7.5 ML UDC GT SCH (09:54)
[2017-04-29] MEDS: POLYETHYLENE GLYCOL 3350 17 GM POWD.PACK GT SCH (09:54)
[2017-04-29] MEDS: MECLIZINE HCL 12.5 MG TABLET GT SCH ×2 (09:54→20:47)
[2017-04-29] MEDS: METOCLOPRAMIDE HCL 10 MG/10 ML UDC PO SCH ×3 (09:54→16:21)
[2017-04-29] MEDS: HYDROGEN PEROXIDE 480 ML BOTTLE TP SCH ×2 (11:15→20:47)
[2017-04-29] MEDS: Z GUARD REMEDY 4 OZ OINT TP SCH ×2 (11:15→20:47)
[2017-04-29 12:00] VITALS: BP 124/62
--- NOTE | 2017-04-29 14:20 | NUR ---
Resident's daughter at bedside made aware that patient was started on Reglan due to increase episode of vomiting, in the past patient was receiving Reglan but discontinued because of interaction with Cymbalta, however Dr. Foreman said to continue to administer Reglan despite interaction with Cymbalta. According to Cheli she is OK discontinuing Cymbalta and change to a different antidepressant medication if doctor feels it is necessary to change. Appreciated the information given.
[2017-04-29 18:00] VITALS: BP 114/56
[2017-04-29 19:57] VITALS: BP 112/60
[2017-04-29] MEDS: DULOXETINE HCL 30 MG CAPSULE.DR GT SCH (21:28)
--- NOTE | 2017-04-29 23:34 | NUR ---
PATIENT RECEIVED TRACHED ON [facility]. VENT. VENT PLUGGED INTO RED OUTLET AND ALARMS SET AND FUNCTIONING. BREATH SOUNDS EQUAL BILATERAL. BREATHING TX GIVEN ORDERED AND TOLERATED WELL. NO ADVERSE REACTIONS NOTED.
[2017-04-29] MEDS: FIBERSOURCE HN 1,000 ML BOTTLE GT PRN (23:51)
[2017-04-30] VITALS (7 sets, daily range): BP systolic 123–138; BP diastolic 60–77
[2017-04-30] MEDS: IPRATROPIUM NEB FS 0.5 MG/2.5 ML AMPUL.NEB NEB SCH ×4 (01:04→20:23)
[2017-04-30] MEDS: ALBUTEROL HALF STRENGTH 1.25 MG/3 ML VIAL.NEB NEB SCH ×4 (01:04→20:23)
[2017-04-30] MEDS: SIMETHICONE SUSP 40 MG/0.6 ML BOTTLE GT PRN (05:18)
[2017-04-30] MEDS: LEVOTHYROXINE SODIUM 25 MCG TABLET GT SCH (05:18)
[2017-04-30] MEDS: OMEPRAZOLE 20 MG CAPSULE.DR GT SCH (05:18)
[2017-04-30] MEDS: POLYETHYLENE GLYCOL 3350 17 GM POWD.PACK GT SCH (09:10)
[2017-04-30] MEDS: METOCLOPRAMIDE HCL 10 MG/10 ML UDC PO SCH ×3 (09:10→16:55)
[2017-04-30] MEDS: MECLIZINE HCL 12.5 MG TABLET GT SCH ×2 (09:10→21:11)
[2017-04-30] MEDS: SENNOSIDES 8.6 MG TABLET GT SCH (09:10)
[2017-04-30] MEDS: ASCORBIC ACID 500 MG TABLET GT SCH (09:10)
[2017-04-30] MEDS: FERROUS SULFATE - FOR SA ONLY 330 MG/7.5 ML UDC GT SCH (09:10)
[2017-04-30] MEDS: HYDROGEN PEROXIDE 480 ML BOTTLE TP SCH ×2 (09:10→21:12)
[2017-04-30] MEDS: ZINC SULFATE 220 MG CAPSULE GT SCH (09:10)
[2017-04-30] MEDS: Z GUARD REMEDY 4 OZ OINT TP SCH ×2 (09:10→21:12)
[2017-04-30] MEDS: CYANOCOBALAMIN 500 MCG TABLET GT SCH (09:10)
[2017-04-30] MEDS: DULOXETINE HCL 30 MG CAPSULE.DR GT SCH (21:12)
[2017-05-01 00:10] VITALS: BP 119/62
[2017-05-01] MEDS: ALBUTEROL HALF STRENGTH 1.25 MG/3 ML VIAL.NEB NEB SCH ×4 (02:00→19:52)
[2017-05-01] MEDS: IPRATROPIUM NEB FS 0.5 MG/2.5 ML AMPUL.NEB NEB SCH ×4 (02:00→19:52)
[2017-05-01] MEDS: LEVOTHYROXINE SODIUM 25 MCG TABLET GT SCH (05:30)
[2017-05-01] MEDS: OMEPRAZOLE 20 MG CAPSULE.DR GT SCH (05:30)
[2017-05-01 06:02] VITALS: BP 112/59
[2017-05-01 07:58] VITALS: BP 120/68
[2017-05-01] MEDS: ASCORBIC ACID 500 MG TABLET GT SCH (09:27)
[2017-05-01] MEDS: METOCLOPRAMIDE HCL 10 MG/10 ML UDC PO SCH ×3 (09:27→17:57)
[2017-05-01] MEDS: CYANOCOBALAMIN 500 MCG TABLET GT SCH (09:27)
[2017-05-01] MEDS: FERROUS SULFATE - FOR SA ONLY 330 MG/7.5 ML UDC GT SCH (09:27)
[2017-05-01] MEDS: SENNOSIDES 8.6 MG TABLET GT SCH (09:27)
[2017-05-01] MEDS: ZINC SULFATE 220 MG CAPSULE GT SCH (09:27)
[2017-05-01] MEDS: POLYETHYLENE GLYCOL 3350 17 GM POWD.PACK GT SCH (09:27)
[2017-05-01] MEDS: MECLIZINE HCL 12.5 MG TABLET GT SCH ×2 (09:27→21:31)
--- NOTE | 2017-05-01 10:28 | NUR ---
Seen and examined by Dr. Charla Fontanez, made her aware that patient was started on Reglan by Dr. Foreman due to frequent episode of vomiting. Reported to Dr. Charla Fontanez that so far resident had no episode of vomiting since Reglan was started. She stated that she may keep Reglan for 1 week and then d/erica. Endorsed.
[2017-05-01 12:00] VITALS: BP 116/62
[2017-05-01] MEDS: FIBERSOURCE HN 1,000 ML BOTTLE GT PRN (12:48)
[2017-05-01] MEDS: Z GUARD REMEDY 4 OZ OINT TP SCH ×2 (13:00→21:31)
[2017-05-01] MEDS: HYDROGEN PEROXIDE 480 ML BOTTLE TP SCH ×2 (13:00→21:31)
[2017-05-01 18:00] VITALS: BP 121/54
[2017-05-01] MEDS: ACETAMINOPHEN 650 MG/20 ML UDC- FOR SA PATIENTS ONLY GT PRN (18:15)
--- NOTE | 2017-05-01 19:30 | NUR ---
RN NOTES Seen and examined by Deneen Hankins and notified pt was noted with right knee swelling, NNO. Per Deneen Hankins continue to monitor and notify her if it gets worse.
[2017-05-01 20:14] VITALS: BP 125/69
[2017-05-01] MEDS: DULOXETINE HCL 30 MG CAPSULE.DR GT SCH (21:31)
[2017-05-02] MEDS: ALBUTEROL HALF STRENGTH 1.25 MG/3 ML VIAL.NEB NEB SCH ×4 (01:28→19:30)
[2017-05-02] MEDS: IPRATROPIUM NEB FS 0.5 MG/2.5 ML AMPUL.NEB NEB SCH ×4 (01:28→19:30)
[2017-05-02 04:06] VITALS: BP 124/60
[2017-05-02] MEDS: OMEPRAZOLE 20 MG CAPSULE.DR GT SCH (05:22)
[2017-05-02] MEDS: LEVOTHYROXINE SODIUM 25 MCG TABLET GT SCH (05:22)
[2017-05-02 06:03] VITALS: BP 114/59
[2017-05-02 07:37] VITALS: BP 139/72
[2017-05-02] MEDS: SENNOSIDES 8.6 MG TABLET GT SCH (08:51)
[2017-05-02] MEDS: MECLIZINE HCL 12.5 MG TABLET GT SCH ×2 (08:51→21:46)
[2017-05-02] MEDS: POLYETHYLENE GLYCOL 3350 17 GM POWD.PACK GT SCH (08:51)
[2017-05-02] MEDS: ZINC SULFATE 220 MG CAPSULE GT SCH (08:51)
[2017-05-02] MEDS: FERROUS SULFATE - FOR SA ONLY 330 MG/7.5 ML UDC GT SCH (08:51)
[2017-05-02] MEDS: CYANOCOBALAMIN 500 MCG TABLET GT SCH (08:51)
[2017-05-02] MEDS: ASCORBIC ACID 500 MG TABLET GT SCH (08:51)
[2017-05-02] MEDS: METOCLOPRAMIDE HCL 10 MG/10 ML UDC PO SCH ×2 (08:52→13:14)
[2017-05-02] MEDS: Z GUARD REMEDY 4 OZ OINT TP SCH ×2 (10:15→21:46)
[2017-05-02] MEDS: HYDROGEN PEROXIDE 480 ML BOTTLE TP SCH ×2 (10:15→21:46)
--- NOTE | 2017-05-02 10:16 | NUR ---
Seen and examined by ROBBY Atkinson given at this time.
[2017-05-02 12:00] VITALS: BP 122/62
[2017-05-02] MEDS: METOCLOPRAMIDE HCL 10 MG TABLET PO SCH (16:54)
[2017-05-02 18:00] VITALS: BP 126/60
[2017-05-02 19:48] VITALS: BP 110/68
[2017-05-02] MEDS: DULOXETINE HCL 30 MG CAPSULE.DR GT SCH (21:46)
[2017-05-03 00:05] VITALS: BP 120/55
[2017-05-03] MEDS: ALBUTEROL HALF STRENGTH 1.25 MG/3 ML VIAL.NEB NEB SCH ×4 (01:41→20:17)
[2017-05-03] MEDS: IPRATROPIUM NEB FS 0.5 MG/2.5 ML AMPUL.NEB NEB SCH ×4 (01:41→20:17)
[2017-05-03] MEDS: LEVOTHYROXINE SODIUM 25 MCG TABLET GT SCH (05:16)
[2017-05-03] MEDS: OMEPRAZOLE 20 MG CAPSULE.DR GT SCH (05:16)
[2017-05-03 06:03] VITALS: BP 116/58
[2017-05-03 08:24] VITALS: BP 144/67
[2017-05-03] MEDS: CYANOCOBALAMIN 500 MCG TABLET GT SCH (08:46)
[2017-05-03] MEDS: POLYETHYLENE GLYCOL 3350 17 GM POWD.PACK GT SCH (08:46)
[2017-05-03] MEDS: MECLIZINE HCL 12.5 MG TABLET GT SCH ×2 (08:46→21:26)
[2017-05-03] MEDS: SENNOSIDES 8.6 MG TABLET GT SCH (08:46)
[2017-05-03] MEDS: FERROUS SULFATE - FOR SA ONLY 330 MG/7.5 ML UDC GT SCH (08:46)
[2017-05-03] MEDS: ASCORBIC ACID 500 MG TABLET GT SCH (08:47)
[2017-05-03] MEDS: METOCLOPRAMIDE HCL 10 MG TABLET PO SCH ×3 (08:47→17:00)
[2017-05-03] MEDS: ZINC SULFATE 220 MG CAPSULE GT SCH (08:47)
[2017-05-03] MEDS: HYDROGEN PEROXIDE 480 ML BOTTLE TP SCH ×2 (09:00→21:26)
[2017-05-03] MEDS: Z GUARD REMEDY 4 OZ OINT TP SCH ×2 (09:00→21:27)
[2017-05-03 12:00] VITALS: BP 118/60
[2017-05-03] MEDS: CLONIDINE HCL 0.1 MG TABLET GT PRN (18:03)
[2017-05-03 18:42] VITALS: BP 122/60
[2017-05-03] MEDS: DULOXETINE HCL 30 MG CAPSULE.DR GT SCH (21:27)
[2017-05-03] MEDS: SIMETHICONE SUSP 40 MG/0.6 ML BOTTLE GT PRN (21:27)
[2017-05-03 23:33] VITALS: BP 125/72
[2017-05-03] MEDS: FIBERSOURCE HN 1,000 ML BOTTLE GT PRN (23:59)
[2017-05-04 00:03] VITALS: BP 134/68
[2017-05-04] MEDS: IPRATROPIUM NEB FS 0.5 MG/2.5 ML AMPUL.NEB NEB SCH ×4 (01:48→19:44)
[2017-05-04] MEDS: ALBUTEROL HALF STRENGTH 1.25 MG/3 ML VIAL.NEB NEB SCH ×4 (01:48→19:44)
[2017-05-04] MEDS: OMEPRAZOLE 20 MG CAPSULE.DR GT SCH (05:11)
[2017-05-04] MEDS: LEVOTHYROXINE SODIUM 25 MCG TABLET GT SCH (05:11)
[2017-05-04 06:07] VITALS: BP 145/77
[2017-05-04 07:43] VITALS: BP 143/63
[2017-05-04] MEDS: ASCORBIC ACID 500 MG TABLET GT SCH (09:00)
[2017-05-04] MEDS: FERROUS SULFATE - FOR SA ONLY 330 MG/7.5 ML UDC GT SCH (09:00)
[2017-05-04] MEDS: CYANOCOBALAMIN 500 MCG TABLET GT SCH (09:00)
[2017-05-04] MEDS: MECLIZINE HCL 12.5 MG TABLET GT SCH ×2 (09:00→20:39)
[2017-05-04] MEDS: SENNOSIDES 8.6 MG TABLET GT SCH (09:00)
[2017-05-04] MEDS: METOCLOPRAMIDE HCL 10 MG TABLET PO SCH ×3 (09:00→17:52)
[2017-05-04] MEDS: POLYETHYLENE GLYCOL 3350 17 GM POWD.PACK GT SCH (09:00)
[2017-05-04] MEDS: ZINC SULFATE 220 MG CAPSULE GT SCH (09:00)
[2017-05-04] MEDS: Z GUARD REMEDY 4 OZ OINT TP SCH ×2 (11:30→20:39)
[2017-05-04] MEDS: HYDROGEN PEROXIDE 480 ML BOTTLE TP SCH ×2 (11:30→20:39)
[2017-05-04 12:00] VITALS: BP 122/62
--- NOTE | 2017-05-04 15:40 | NUR ---
Seen and examined by Deneen ROCHA with no new order.
[2017-05-04 18:00] VITALS: BP 123/70
[2017-05-04 19:46] VITALS: BP 125/69
[2017-05-04] MEDS: DULOXETINE HCL 30 MG CAPSULE.DR GT SCH (21:36)
[2017-05-04] MEDS: FIBERSOURCE HN 1,000 ML BOTTLE GT PRN (21:40)
[2017-05-05 00:06] VITALS: BP 119/73
[2017-05-05] MEDS: IPRATROPIUM NEB FS 0.5 MG/2.5 ML AMPUL.NEB NEB SCH ×4 (01:49→20:10)
[2017-05-05] MEDS: ALBUTEROL HALF STRENGTH 1.25 MG/3 ML VIAL.NEB NEB SCH ×4 (01:49→20:10)
[2017-05-05] MEDS: LEVOTHYROXINE SODIUM 25 MCG TABLET GT SCH (05:22)
[2017-05-05] MEDS: SIMETHICONE SUSP 40 MG/0.6 ML BOTTLE GT PRN (05:22)
[2017-05-05] MEDS: OMEPRAZOLE 20 MG CAPSULE.DR GT SCH (05:22)
[2017-05-05 06:06] VITALS: BP 120/66
--- NOTE | 2017-05-05 07:48 | NUR ---
Received female bren pt on mechanical vent. Pt bren is secure. Vent is plugged into a red outlet, alarms are set and audible, disconnect alarm checked, BVM is at bedside. Addendum: 05/05/17 at 0749 by MAI PALOMO RT Amended: Links added.
[2017-05-05 07:50] VITALS: BP 120/76
[2017-05-05] MEDS: MECLIZINE HCL 12.5 MG TABLET GT SCH ×2 (08:59→21:15)
[2017-05-05] MEDS: FERROUS SULFATE - FOR SA ONLY 330 MG/7.5 ML UDC GT SCH (08:59)
[2017-05-05] MEDS: POLYETHYLENE GLYCOL 3350 17 GM POWD.PACK GT SCH (08:59)
[2017-05-05] MEDS: Z GUARD REMEDY 4 OZ OINT TP SCH ×2 (09:00→21:15)
[2017-05-05] MEDS: CYANOCOBALAMIN 500 MCG TABLET GT SCH (09:00)
[2017-05-05] MEDS: ASCORBIC ACID 500 MG TABLET GT SCH (09:00)
[2017-05-05] MEDS: SENNOSIDES 8.6 MG TABLET GT SCH (09:00)
[2017-05-05] MEDS: METOCLOPRAMIDE HCL 10 MG TABLET PO SCH ×3 (09:01→16:48)
[2017-05-05] MEDS: ZINC SULFATE 220 MG CAPSULE GT SCH (09:01)
[2017-05-05 12:00] VITALS: BP 122/70
[2017-05-05] MEDS: HYDROGEN PEROXIDE 480 ML BOTTLE TP SCH ×2 (12:22→21:15)
[2017-05-05] MEDS: CLONIDINE HCL 0.1 MG TABLET GT PRN (16:55)
[2017-05-05 18:49] VITALS: BP 123/70
[2017-05-05 19:20] VITALS: BP 111/66
--- NOTE | 2017-05-05 20:09 | NUR ---
RT Found patient on settings of AC14 450 40% +5. Sat: 100% HR:91. Patient is on continuos pulse oximetry monitoring. Patient is calm, secretions are small, thick and white. Ambu bag is at bedside. Addendum: 05/05/17 at 2208 by TRAMAINE SALAS RT Amended: Links added.
[2017-05-05] MEDS: DULOXETINE HCL 30 MG CAPSULE.DR GT SCH (21:15)
[2017-05-05] MEDS: FIBERSOURCE HN 1,000 ML BOTTLE GT PRN (21:16)
[2017-05-06 00:26] VITALS: BP 126/57
[2017-05-06] MEDS: IPRATROPIUM NEB FS 0.5 MG/2.5 ML AMPUL.NEB NEB SCH ×4 (01:30→19:13)
[2017-05-06] MEDS: ALBUTEROL HALF STRENGTH 1.25 MG/3 ML VIAL.NEB NEB SCH ×4 (01:31→19:14)
[2017-05-06] MEDS: OMEPRAZOLE 20 MG CAPSULE.DR GT SCH (05:17)
[2017-05-06] MEDS: LEVOTHYROXINE SODIUM 25 MCG TABLET GT SCH (05:17)
[2017-05-06 06:04] VITALS: BP 122/56
[2017-05-06 07:43] VITALS: BP_SYST 129; BP_SYST 143; BP_DIAS 61; BP_DIAS 69
[2017-05-06] MEDS: MECLIZINE HCL 12.5 MG TABLET GT SCH ×2 (09:06→20:39)
[2017-05-06] MEDS: FERROUS SULFATE - FOR SA ONLY 330 MG/7.5 ML UDC GT SCH (09:06)
[2017-05-06] MEDS: SENNOSIDES 8.6 MG TABLET GT SCH (09:06)
[2017-05-06] MEDS: POLYETHYLENE GLYCOL 3350 17 GM POWD.PACK GT SCH (09:06)
[2017-05-06] MEDS: ZINC SULFATE 220 MG CAPSULE GT SCH (09:07)
[2017-05-06] MEDS: CYANOCOBALAMIN 500 MCG TABLET GT SCH (09:07)
[2017-05-06] MEDS: METOCLOPRAMIDE HCL 10 MG TABLET PO SCH ×3 (09:07→17:40)
[2017-05-06] MEDS: ASCORBIC ACID 500 MG TABLET GT SCH (09:07)
[2017-05-06 12:00] VITALS: BP 121/60
[2017-05-06] MEDS: Z GUARD REMEDY 4 OZ OINT TP SCH ×2 (12:28→20:39)
[2017-05-06] MEDS: HYDROGEN PEROXIDE 480 ML BOTTLE TP SCH ×2 (12:28→20:39)
[2017-05-06] MEDS: FIBERSOURCE HN 1,000 ML BOTTLE GT PRN (14:06)
[2017-05-06] MEDS: CLONIDINE HCL 0.1 MG TABLET GT PRN (17:40)
[2017-05-06 18:46] VITALS: BP 114/84
[2017-05-06 19:33] VITALS: BP 128/58
[2017-05-06] MEDS: SIMETHICONE SUSP 40 MG/0.6 ML BOTTLE GT PRN (21:29)
[2017-05-06] MEDS: DULOXETINE HCL 30 MG CAPSULE.DR GT SCH (21:29)
[2017-05-07 00:02] VITALS: BP 127/64
[2017-05-07] MEDS: ALBUTEROL HALF STRENGTH 1.25 MG/3 ML VIAL.NEB NEB SCH ×4 (01:02→19:23)
[2017-05-07] MEDS: IPRATROPIUM NEB FS 0.5 MG/2.5 ML AMPUL.NEB NEB SCH ×4 (01:02→19:23)
[2017-05-07] MEDS: OMEPRAZOLE 20 MG CAPSULE.DR GT SCH (05:18)
[2017-05-07] MEDS: LEVOTHYROXINE SODIUM 25 MCG TABLET GT SCH (05:18)
[2017-05-07] MEDS: FIBERSOURCE HN 1,000 ML BOTTLE GT PRN (05:18)
[2017-05-07 06:12] VITALS: BP 118/73
[2017-05-07 08:00] VITALS: BP 136/66
--- NOTE | 2017-05-07 08:07 | NUR ---
Received female trach pt on a mechanical vent. Pt bren is secure. Vent is plugged into a red outlet, alarms are audible, and BVM is at bedside. Addendum: 05/07/17 at 0809 by MAI PALOMO RT Amended: Links added.
[2017-05-07] MEDS: Z GUARD REMEDY 4 OZ OINT TP SCH ×2 (09:00→20:37)
[2017-05-07] MEDS: ASCORBIC ACID 500 MG TABLET GT SCH (09:00)
[2017-05-07] MEDS: METOCLOPRAMIDE HCL 10 MG TABLET PO SCH ×3 (09:00→17:00)
[2017-05-07] MEDS: SENNOSIDES 8.6 MG TABLET GT SCH (09:00)
[2017-05-07] MEDS: CYANOCOBALAMIN 500 MCG TABLET GT SCH (09:00)
[2017-05-07] MEDS: FERROUS SULFATE - FOR SA ONLY 330 MG/7.5 ML UDC GT SCH (09:00)
[2017-05-07] MEDS: MECLIZINE HCL 12.5 MG TABLET GT SCH ×2 (09:00→20:36)
[2017-05-07] MEDS: POLYETHYLENE GLYCOL 3350 17 GM POWD.PACK GT SCH (09:00)
[2017-05-07] MEDS: HYDROGEN PEROXIDE 480 ML BOTTLE TP SCH ×2 (09:00→20:37)
[2017-05-07] MEDS: ZINC SULFATE 220 MG CAPSULE GT SCH (09:00)
[2017-05-07 18:34] VITALS: BP 136/66
[2017-05-07 19:57] VITALS: BP 95/69
[2017-05-07] MEDS: DULOXETINE HCL 30 MG CAPSULE.DR GT SCH (21:48)
[2017-05-08 00:23] VITALS: BP 124/70
[2017-05-08] MEDS: IPRATROPIUM NEB FS 0.5 MG/2.5 ML AMPUL.NEB NEB SCH ×4 (01:14→19:19)
[2017-05-08] MEDS: ALBUTEROL HALF STRENGTH 1.25 MG/3 ML VIAL.NEB NEB SCH ×4 (01:14→19:19)
[2017-05-08] MEDS: OMEPRAZOLE 20 MG CAPSULE.DR GT SCH (05:23)
[2017-05-08] MEDS: LEVOTHYROXINE SODIUM 25 MCG TABLET GT SCH (05:23)
[2017-05-08 06:05] VITALS: BP 129/74
[2017-05-08] MEDS: FIBERSOURCE HN 1,000 ML BOTTLE GT PRN (06:31)
--- NOTE | 2017-05-08 07:41 | NUR ---
Received female trach pt on a mechanical vent. Pt bren is secure. Vent is plugged into a red outlet, alarms are audible, and BVM is at bedside. Addendum: 05/08/17 at 0741 by MAI PALOMO RT Amended: Links added.
[2017-05-08 08:00] VITALS: BP 124/71
[2017-05-08] MEDS: Z GUARD REMEDY 4 OZ OINT TP SCH ×2 (09:00→20:32)
[2017-05-08] MEDS: ZINC SULFATE 220 MG CAPSULE GT SCH (09:00)
[2017-05-08] MEDS: MECLIZINE HCL 12.5 MG TABLET GT SCH ×2 (09:00→20:31)
[2017-05-08] MEDS: METOCLOPRAMIDE HCL 10 MG TABLET PO SCH ×3 (09:00→17:00)
[2017-05-08] MEDS: POLYETHYLENE GLYCOL 3350 17 GM POWD.PACK GT SCH (09:00)
[2017-05-08] MEDS: CYANOCOBALAMIN 500 MCG TABLET GT SCH (09:00)
[2017-05-08] MEDS: ASCORBIC ACID 500 MG TABLET GT SCH (09:00)
[2017-05-08] MEDS: SENNOSIDES 8.6 MG TABLET GT SCH (09:00)
[2017-05-08] MEDS: HYDROGEN PEROXIDE 480 ML BOTTLE TP SCH ×2 (09:00→20:32)
[2017-05-08] MEDS: FERROUS SULFATE - FOR SA ONLY 330 MG/7.5 ML UDC GT SCH (09:00)
--- NOTE | 2017-05-08 09:43 | NUR ---
Seen by Dr. Fontanez. Received order to do CBC, BMP, Mg, Phosphorus on 05/22/17.
--- NOTE | 2017-05-08 14:00 | NUR ---
Social Service Section of [facility] (1st quarter) completed. Resident's daughter Cheli is her salesperson recreational vehicles and visits frequently. She feels that she will be a resident of subacute snf. Dtr has frequently requested weaning trials for the patient however, Dr. John stated that she cannot tolerate it and she will continue to remain on the ventilator. Current plan of care will continue.
[2017-05-08 17:07] VITALS: BP 126/71
[2017-05-08 18:08] VITALS: BP 126/71
[2017-05-08 19:51] VITALS: BP 120/69
[2017-05-08] MEDS: DULOXETINE HCL 30 MG CAPSULE.DR GT SCH (21:24)
[2017-05-09] VITALS (7 sets, daily range): BP systolic 113–136; BP diastolic 59–76
[2017-05-09] MEDS: FIBERSOURCE HN 1,000 ML BOTTLE GT PRN ×2 (00:26→18:24)
[2017-05-09] MEDS: IPRATROPIUM NEB FS 0.5 MG/2.5 ML AMPUL.NEB NEB SCH ×4 (01:47→19:56)
[2017-05-09] MEDS: ALBUTEROL HALF STRENGTH 1.25 MG/3 ML VIAL.NEB NEB SCH ×4 (01:47→19:56)
[2017-05-09] MEDS: OMEPRAZOLE 20 MG CAPSULE.DR GT SCH (05:23)
[2017-05-09] MEDS: LEVOTHYROXINE SODIUM 25 MCG TABLET GT SCH (05:23)
[2017-05-09] MEDS: CYANOCOBALAMIN 500 MCG TABLET GT SCH (09:44)
[2017-05-09] MEDS: ASCORBIC ACID 500 MG TABLET GT SCH (09:44)
[2017-05-09] MEDS: MECLIZINE HCL 12.5 MG TABLET GT SCH ×2 (09:44→20:20)
[2017-05-09] MEDS: POLYETHYLENE GLYCOL 3350 17 GM POWD.PACK GT SCH (09:44)
[2017-05-09] MEDS: FERROUS SULFATE - FOR SA ONLY 330 MG/7.5 ML UDC GT SCH (09:44)
[2017-05-09] MEDS: SENNOSIDES 8.6 MG TABLET GT SCH (09:44)
[2017-05-09] MEDS: ZINC SULFATE 220 MG CAPSULE GT SCH (09:44)
[2017-05-09] MEDS: HYDROGEN PEROXIDE 480 ML BOTTLE TP SCH ×2 (09:44→20:20)
[2017-05-09] MEDS: METOCLOPRAMIDE HCL 10 MG TABLET PO SCH ×3 (09:44→17:00)
[2017-05-09] MEDS: Z GUARD REMEDY 4 OZ OINT TP SCH ×2 (09:44→20:20)
[2017-05-09] MEDS: DULOXETINE HCL 30 MG CAPSULE.DR GT SCH (22:32)
[2017-05-10 00:22] VITALS: BP 123/69
[2017-05-10] MEDS: IPRATROPIUM NEB FS 0.5 MG/2.5 ML AMPUL.NEB NEB SCH ×4 (02:19→20:01)
[2017-05-10] MEDS: ALBUTEROL HALF STRENGTH 1.25 MG/3 ML VIAL.NEB NEB SCH ×4 (02:19→20:01)
[2017-05-10] MEDS: LEVOTHYROXINE SODIUM 25 MCG TABLET GT SCH (05:18)
[2017-05-10] MEDS: OMEPRAZOLE 20 MG CAPSULE.DR GT SCH (05:18)
[2017-05-10 06:06] VITALS: BP 118/72
[2017-05-10 08:00] VITALS: BP 123/58
[2017-05-10] MEDS: MECLIZINE HCL 12.5 MG TABLET GT SCH ×2 (09:28→21:45)
[2017-05-10] MEDS: METOCLOPRAMIDE HCL 10 MG TABLET PO SCH ×3 (09:28→16:38)
[2017-05-10] MEDS: ZINC SULFATE 220 MG CAPSULE GT SCH (09:28)
[2017-05-10] MEDS: POLYETHYLENE GLYCOL 3350 17 GM POWD.PACK GT SCH (09:28)
[2017-05-10] MEDS: Z GUARD REMEDY 4 OZ OINT TP SCH ×2 (09:28→21:45)
[2017-05-10] MEDS: FERROUS SULFATE - FOR SA ONLY 330 MG/7.5 ML UDC GT SCH (09:28)
[2017-05-10] MEDS: ASCORBIC ACID 500 MG TABLET GT SCH (09:28)
[2017-05-10] MEDS: HYDROGEN PEROXIDE 480 ML BOTTLE TP SCH ×2 (09:28→21:45)
[2017-05-10] MEDS: SENNOSIDES 8.6 MG TABLET GT SCH (09:28)
[2017-05-10] MEDS: CYANOCOBALAMIN 500 MCG TABLET GT SCH (09:28)
[2017-05-10 14:40] VITALS: BP 120/75
[2017-05-10 18:07] VITALS: BP 125/69
[2017-05-10 20:00] VITALS: BP 117/74
[2017-05-10] MEDS: DULOXETINE HCL 30 MG CAPSULE.DR GT SCH (21:45)
[2017-05-11 00:01] VITALS: BP 110/58
[2017-05-11] MEDS: ALBUTEROL HALF STRENGTH 1.25 MG/3 ML VIAL.NEB NEB SCH ×4 (01:44→19:50)
[2017-05-11] MEDS: IPRATROPIUM NEB FS 0.5 MG/2.5 ML AMPUL.NEB NEB SCH ×4 (01:44→19:50)
[2017-05-11] MEDS: OMEPRAZOLE 20 MG CAPSULE.DR GT SCH (05:38)
[2017-05-11] MEDS: LEVOTHYROXINE SODIUM 25 MCG TABLET GT SCH (05:38)
[2017-05-11] MEDS: FIBERSOURCE HN 1,000 ML BOTTLE GT PRN (05:51)
[2017-05-11 06:20] VITALS: BP 124/52
[2017-05-11 08:00] VITALS: BP_SYST 106; BP_SYST 139; BP_DIAS 65; BP_DIAS 67
[2017-05-11] MEDS: MECLIZINE HCL 12.5 MG TABLET GT SCH ×2 (09:00→20:40)
[2017-05-11] MEDS: ASCORBIC ACID 500 MG TABLET GT SCH (09:00)
[2017-05-11] MEDS: METOCLOPRAMIDE HCL 10 MG TABLET PO SCH ×3 (09:00→17:53)
[2017-05-11] MEDS: ZINC SULFATE 220 MG CAPSULE GT SCH (09:00)
[2017-05-11] MEDS: HYDROGEN PEROXIDE 480 ML BOTTLE TP SCH ×2 (09:00→20:40)
[2017-05-11] MEDS: Z GUARD REMEDY 4 OZ OINT TP SCH ×2 (09:00→20:40)
[2017-05-11] MEDS: POLYETHYLENE GLYCOL 3350 17 GM POWD.PACK GT SCH (09:00)
[2017-05-11] MEDS: CYANOCOBALAMIN 500 MCG TABLET GT SCH (09:00)
[2017-05-11] MEDS: SENNOSIDES 8.6 MG TABLET GT SCH (09:00)
[2017-05-11] MEDS: FERROUS SULFATE - FOR SA ONLY 330 MG/7.5 ML UDC GT SCH (09:00)
[2017-05-11 12:00] VITALS: BP 113/68
[2017-05-11 18:40] VITALS: BP 118/70
[2017-05-11 19:25] VITALS: BP 113/78
[2017-05-11] MEDS: DULOXETINE HCL 30 MG CAPSULE.DR GT SCH (22:13)
[2017-05-12] VITALS: BP 125/54
[2017-05-12] MEDS: CLONIDINE HCL 0.1 MG TABLET GT PRN (00:01)
[2017-05-12] MEDS: ALBUTEROL HALF STRENGTH 1.25 MG/3 ML VIAL.NEB NEB SCH ×4 (00:47→20:22)
[2017-05-12] MEDS: IPRATROPIUM NEB FS 0.5 MG/2.5 ML AMPUL.NEB NEB SCH ×4 (00:47→20:22)
[2017-05-12] MEDS: FIBERSOURCE HN 1,000 ML BOTTLE GT PRN ×2 (01:10→22:01)
[2017-05-12] MEDS: OMEPRAZOLE 20 MG CAPSULE.DR GT SCH (05:45)
[2017-05-12] MEDS: LEVOTHYROXINE SODIUM 25 MCG TABLET GT SCH (05:45)
[2017-05-12 06:00] VITALS: BP 126/75
[2017-05-12 07:54] VITALS: BP 139/69
[2017-05-12] MEDS: SENNOSIDES 8.6 MG TABLET GT SCH (08:56)
[2017-05-12] MEDS: CYANOCOBALAMIN 500 MCG TABLET GT SCH (08:56)
[2017-05-12] MEDS: MECLIZINE HCL 12.5 MG TABLET GT SCH ×2 (08:56→21:29)
[2017-05-12] MEDS: FERROUS SULFATE - FOR SA ONLY 330 MG/7.5 ML UDC GT SCH (08:56)
[2017-05-12] MEDS: HYDROGEN PEROXIDE 480 ML BOTTLE TP SCH ×2 (08:56→21:29)
[2017-05-12] MEDS: ASCORBIC ACID 500 MG TABLET GT SCH (08:56)
[2017-05-12] MEDS: POLYETHYLENE GLYCOL 3350 17 GM POWD.PACK GT SCH (08:56)
[2017-05-12] MEDS: METOCLOPRAMIDE HCL 10 MG TABLET PO SCH ×3 (08:56→16:35)
[2017-05-12] MEDS: ZINC SULFATE 220 MG CAPSULE GT SCH (08:56)
[2017-05-12] MEDS: Z GUARD REMEDY 4 OZ OINT TP SCH ×2 (08:57→21:29)
[2017-05-12 12:00] VITALS: BP 121/65
[2017-05-12 19:03] VITALS: BP 112/65
[2017-05-12 19:26] VITALS: BP 116/85
[2017-05-12] MEDS: DULOXETINE HCL 30 MG CAPSULE.DR GT SCH (21:29)
[2017-05-13 00:11] VITALS: BP 104/59
[2017-05-13] MEDS: ALBUTEROL HALF STRENGTH 1.25 MG/3 ML VIAL.NEB NEB SCH ×4 (01:32→20:01)
[2017-05-13] MEDS: IPRATROPIUM NEB FS 0.5 MG/2.5 ML AMPUL.NEB NEB SCH ×4 (01:32→20:01)
[2017-05-13] MEDS: LEVOTHYROXINE SODIUM 25 MCG TABLET GT SCH (05:47)
[2017-05-13] MEDS: OMEPRAZOLE 20 MG CAPSULE.DR GT SCH (05:47)
[2017-05-13 06:38] VITALS: BP 125/75
[2017-05-13 07:45] VITALS: BP 124/73
[2017-05-13] MEDS: CYANOCOBALAMIN 500 MCG TABLET GT SCH (09:00)
[2017-05-13] MEDS: ASCORBIC ACID 500 MG TABLET GT SCH (09:00)
[2017-05-13] MEDS: FERROUS SULFATE - FOR SA ONLY 330 MG/7.5 ML UDC GT SCH (09:00)
[2017-05-13] MEDS: Z GUARD REMEDY 4 OZ OINT TP SCH ×2 (09:00→21:23)
[2017-05-13] MEDS: HYDROGEN PEROXIDE 480 ML BOTTLE TP SCH ×2 (09:00→21:23)
[2017-05-13] MEDS: MECLIZINE HCL 12.5 MG TABLET GT SCH ×2 (09:00→21:23)
[2017-05-13] MEDS: SENNOSIDES 8.6 MG TABLET GT SCH (09:00)
[2017-05-13] MEDS: ZINC SULFATE 220 MG CAPSULE GT SCH (09:00)
[2017-05-13] MEDS: METOCLOPRAMIDE HCL 10 MG TABLET PO SCH ×3 (09:00→16:26)
[2017-05-13] MEDS: POLYETHYLENE GLYCOL 3350 17 GM POWD.PACK GT SCH (09:00)
[2017-05-13 12:00] VITALS: BP 118/54
--- NOTE | 2017-05-13 15:33 | NUR ---
RT RECEIVED PT TRACH'D ON VENT WITH SETTINGS PER MD ORDER. FACTORY MAINTENANCE TECHNICIAN DONE. BILAT BREATH SOUNDS ON AUSCULTATION. SPARE TRACH AND AMBU BAG AT BEDSIDE. TRACH SECURE AND AIRWAY PATENT. SUCTIONED SMALL AMOUNTS OF THICK, WHITE/RIBEIRO SECRETIONS. ALARMS ON AND SET PROPERLY. VENT PLUGGED INTO RED OUTLET. TX'S GIVEN. NO ADVERSE REACTIONS OBSERVED. NO SOB NOTED AT THIS TIME. WILL CONTINUE TO MONITOR THE PATIENT FOR ANY CHANGES. VENT CIRCUIT CHANGED. Addendum: 05/13/17 at 2302 by FLORA SHANNON RT Amended: Links added.
[2017-05-13] MEDS: FIBERSOURCE HN 1,000 ML BOTTLE GT PRN (16:27)
[2017-05-13 18:22] VITALS: BP 114/62
[2017-05-13 19:43] VITALS: BP 110/74
[2017-05-13] MEDS: DULOXETINE HCL 30 MG CAPSULE.DR GT SCH (21:23)
[2017-05-14] MEDS: IPRATROPIUM NEB FS 0.5 MG/2.5 ML AMPUL.NEB NEB SCH ×4 (00:57→19:18)
[2017-05-14] MEDS: ALBUTEROL HALF STRENGTH 1.25 MG/3 ML VIAL.NEB NEB SCH ×4 (00:57→19:18)
[2017-05-14] MEDS: LEVOTHYROXINE SODIUM 25 MCG TABLET GT SCH (05:52)
[2017-05-14] MEDS: OMEPRAZOLE 20 MG CAPSULE.DR GT SCH (05:52)
[2017-05-14 05:53] VITALS: BP 120/68
[2017-05-14 06:07] VITALS: BP 112/61
--- NOTE | 2017-05-14 07:34 | NUR ---
Received female trach pt on a mechanical vent. Pt bren is secure. Vent is plugged into a red outlet, alarms are audible, and BVM is at bedside. Addendum: 05/14/17 at 0735 by MAI PALOMO RT Amended: Links added.
[2017-05-14] MEDS: METOCLOPRAMIDE HCL 10 MG TABLET PO SCH ×3 (09:38→17:47)
[2017-05-14] MEDS: POLYETHYLENE GLYCOL 3350 17 GM POWD.PACK GT SCH (09:38)
[2017-05-14] MEDS: FERROUS SULFATE - FOR SA ONLY 330 MG/7.5 ML UDC GT SCH (09:38)
[2017-05-14] MEDS: SENNOSIDES 8.6 MG TABLET GT SCH (09:38)
[2017-05-14] MEDS: Z GUARD REMEDY 4 OZ OINT TP SCH ×2 (09:38→20:27)
[2017-05-14] MEDS: CYANOCOBALAMIN 500 MCG TABLET GT SCH (09:38)
[2017-05-14] MEDS: MECLIZINE HCL 12.5 MG TABLET GT SCH ×2 (09:38→20:27)
[2017-05-14] MEDS: HYDROGEN PEROXIDE 480 ML BOTTLE TP SCH ×2 (09:38→20:27)
[2017-05-14] MEDS: ZINC SULFATE 220 MG CAPSULE GT SCH (09:38)
[2017-05-14] MEDS: ASCORBIC ACID 500 MG TABLET GT SCH (09:38)
[2017-05-14 14:18] VITALS: BP 118/67
[2017-05-14 18:40] VITALS: BP 121/69
[2017-05-14 19:49] VITALS: BP 124/67
[2017-05-14] MEDS: DULOXETINE HCL 30 MG CAPSULE.DR GT SCH (21:20)
[2017-05-15 00:24] VITALS: BP 117/65
[2017-05-15] MEDS: IPRATROPIUM NEB FS 0.5 MG/2.5 ML AMPUL.NEB NEB SCH ×4 (01:27→19:31)
[2017-05-15] MEDS: ALBUTEROL HALF STRENGTH 1.25 MG/3 ML VIAL.NEB NEB SCH ×4 (01:27→19:31)
[2017-05-15] MEDS: OMEPRAZOLE 20 MG CAPSULE.DR GT SCH (05:20)
[2017-05-15] MEDS: LEVOTHYROXINE SODIUM 25 MCG TABLET GT SCH (05:20)
[2017-05-15 06:06] VITALS: BP 114/70
--- NOTE | 2017-05-15 07:46 | NUR ---
RT PT RECEIVED TRACHED ON THE VENT WITH NOTED SETTINGS. PT IS AWAKE AND RESPONDS TO STIMULI. VENT ALARMS ARE SET AND AUDIBLE WITH BVM BY BEDSIDE. BILLING MACHINE OPERATOR CUFF PRESSURE NOTED. VENT IS PLUGGED INTO RED OUTLET. NO RESPIRATORY DISTRESS NOTED AT THIS TIME, WILL CONTINUE TO MONITOR. Addendum: 05/15/17 at 1709 by MILKA MARQUES RT Amended: Links added.
[2017-05-15 07:57] VITALS: BP 120/59
[2017-05-15] MEDS: HYDROGEN PEROXIDE 480 ML BOTTLE TP SCH ×2 (09:34→20:21)
[2017-05-15] MEDS: POLYETHYLENE GLYCOL 3350 17 GM POWD.PACK GT SCH (09:34)
[2017-05-15] MEDS: ZINC SULFATE 220 MG CAPSULE GT SCH (09:34)
[2017-05-15] MEDS: MECLIZINE HCL 12.5 MG TABLET GT SCH ×2 (09:34→20:21)
[2017-05-15] MEDS: FERROUS SULFATE - FOR SA ONLY 330 MG/7.5 ML UDC GT SCH (09:34)
[2017-05-15] MEDS: METOCLOPRAMIDE HCL 10 MG TABLET PO SCH ×3 (09:34→17:00)
[2017-05-15] MEDS: SENNOSIDES 8.6 MG TABLET GT SCH (09:34)
[2017-05-15] MEDS: CYANOCOBALAMIN 500 MCG TABLET GT SCH (09:34)
[2017-05-15] MEDS: ASCORBIC ACID 500 MG TABLET GT SCH (09:34)
[2017-05-15] MEDS: Z GUARD REMEDY 4 OZ OINT TP SCH ×2 (09:34→20:21)
[2017-05-15] MEDS: ACETAMINOPHEN 650 MG/20 ML UDC- FOR SA PATIENTS ONLY GT PRN (10:00)
[2017-05-15 16:37] VITALS: BP 119/70
[2017-05-15 19:01] VITALS: BP 119/70
[2017-05-15 19:41] VITALS: BP 116/68
[2017-05-15] MEDS: DULOXETINE HCL 30 MG CAPSULE.DR GT SCH (21:27)
[2017-05-16 00:06] VITALS: BP 115/62
[2017-05-16] MEDS: ALBUTEROL HALF STRENGTH 1.25 MG/3 ML VIAL.NEB NEB SCH ×4 (00:53→19:30)
[2017-05-16] MEDS: IPRATROPIUM NEB FS 0.5 MG/2.5 ML AMPUL.NEB NEB SCH ×4 (00:53→19:30)
[2017-05-16] MEDS: OMEPRAZOLE 20 MG CAPSULE.DR GT SCH (05:19)
[2017-05-16] MEDS: LEVOTHYROXINE SODIUM 25 MCG TABLET GT SCH (05:19)
[2017-05-16 06:08] VITALS: BP 121/67
[2017-05-16 08:03] VITALS: BP 111/66
[2017-05-16] MEDS: POLYETHYLENE GLYCOL 3350 17 GM POWD.PACK GT SCH (09:55)
[2017-05-16] MEDS: CYANOCOBALAMIN 500 MCG TABLET GT SCH (09:55)
[2017-05-16] MEDS: ASCORBIC ACID 500 MG TABLET GT SCH (09:55)
[2017-05-16] MEDS: MECLIZINE HCL 12.5 MG TABLET GT SCH ×2 (09:55→21:08)
[2017-05-16] MEDS: FERROUS SULFATE - FOR SA ONLY 330 MG/7.5 ML UDC GT SCH (09:55)
[2017-05-16] MEDS: METOCLOPRAMIDE HCL 10 MG TABLET PO SCH ×3 (09:55→16:39)
[2017-05-16] MEDS: SENNOSIDES 8.6 MG TABLET GT SCH (09:55)
[2017-05-16] MEDS: ZINC SULFATE 220 MG CAPSULE GT SCH (09:55)
[2017-05-16] MEDS: HYDROGEN PEROXIDE 480 ML BOTTLE TP SCH ×2 (09:56→21:08)
[2017-05-16] MEDS: Z GUARD REMEDY 4 OZ OINT TP SCH ×2 (09:56→21:08)
[2017-05-16 15:02] VITALS: BP 105/45
[2017-05-16 18:45] VITALS: BP 116/60
[2017-05-16 19:41] VITALS: BP 129/63
[2017-05-16] MEDS: ONDANSETRON 4 MG TAB.RAPDIS GT PRN (21:12)
[2017-05-16] MEDS: DULOXETINE HCL 30 MG CAPSULE.DR GT SCH (21:34)
[2017-05-17 00:11] VITALS: BP 113/68
[2017-05-17] MEDS: IPRATROPIUM NEB FS 0.5 MG/2.5 ML AMPUL.NEB NEB SCH ×4 (01:59→20:15)
[2017-05-17] MEDS: ALBUTEROL HALF STRENGTH 1.25 MG/3 ML VIAL.NEB NEB SCH ×4 (01:59→20:15)
[2017-05-17] MEDS: FIBERSOURCE HN 1,000 ML BOTTLE GT PRN ×2 (04:08→23:46)
[2017-05-17] MEDS: OMEPRAZOLE 20 MG CAPSULE.DR GT SCH (05:14)
[2017-05-17] MEDS: LEVOTHYROXINE SODIUM 25 MCG TABLET GT SCH (05:14)
[2017-05-17 06:13] VITALS: BP 119/64
--- NOTE | 2017-05-17 07:30 | NUR ---
Received male bren pt on mechanical vent. Pt bren is secure. Vent is plugged into a red outlet, alarms are set and audible, disconnect alarm checked, BVM is at bedside. Addendum: 05/17/17 at 0731 by MAI PALOMO RT Amended: Links added.
[2017-05-17 07:48] VITALS: BP 123/56
[2017-05-17] MEDS: SENNOSIDES 8.6 MG TABLET GT SCH (09:18)
[2017-05-17] MEDS: ZINC SULFATE 220 MG CAPSULE GT SCH (09:18)
[2017-05-17] MEDS: HYDROGEN PEROXIDE 480 ML BOTTLE TP SCH ×2 (09:18→21:09)
[2017-05-17] MEDS: POLYETHYLENE GLYCOL 3350 17 GM POWD.PACK GT SCH (09:18)
[2017-05-17] MEDS: ASCORBIC ACID 500 MG TABLET GT SCH (09:18)
[2017-05-17] MEDS: FERROUS SULFATE - FOR SA ONLY 330 MG/7.5 ML UDC GT SCH (09:18)
[2017-05-17] MEDS: MECLIZINE HCL 12.5 MG TABLET GT SCH ×2 (09:18→21:09)
[2017-05-17] MEDS: METOCLOPRAMIDE HCL 10 MG TABLET PO SCH ×3 (09:18→17:49)
[2017-05-17] MEDS: CYANOCOBALAMIN 500 MCG TABLET GT SCH (09:18)
[2017-05-17] MEDS: Z GUARD REMEDY 4 OZ OINT TP SCH ×2 (09:19→21:09)
[2017-05-17 15:07] VITALS: BP 123/65
[2017-05-17 18:48] VITALS: BP 118/64
[2017-05-17 20:37] VITALS: BP 114/45
[2017-05-17] MEDS: DULOXETINE HCL 30 MG CAPSULE.DR GT SCH (21:09)
[2017-05-18 00:15] VITALS: BP 115/77
[2017-05-18] MEDS: IPRATROPIUM NEB FS 0.5 MG/2.5 ML AMPUL.NEB NEB SCH ×4 (01:09→19:57)
[2017-05-18] MEDS: ALBUTEROL HALF STRENGTH 1.25 MG/3 ML VIAL.NEB NEB SCH ×4 (01:09→19:57)
[2017-05-18] MEDS: LEVOTHYROXINE SODIUM 25 MCG TABLET GT SCH (05:36)
[2017-05-18] MEDS: OMEPRAZOLE 20 MG CAPSULE.DR GT SCH (05:36)
[2017-05-18 06:12] VITALS: BP 119/64
[2017-05-18 07:26] VITALS: BP 111/57
[2017-05-18] MEDS: HYDROGEN PEROXIDE 480 ML BOTTLE TP SCH ×2 (09:00→21:13)
[2017-05-18] MEDS: FERROUS SULFATE - FOR SA ONLY 330 MG/7.5 ML UDC GT SCH (09:00)
[2017-05-18] MEDS: CYANOCOBALAMIN 500 MCG TABLET GT SCH (09:00)
[2017-05-18] MEDS: ZINC SULFATE 220 MG CAPSULE GT SCH (09:00)
[2017-05-18] MEDS: POLYETHYLENE GLYCOL 3350 17 GM POWD.PACK GT SCH (09:00)
[2017-05-18] MEDS: METOCLOPRAMIDE HCL 10 MG TABLET PO SCH ×3 (09:00→17:00)
[2017-05-18] MEDS: MECLIZINE HCL 12.5 MG TABLET GT SCH ×2 (09:00→21:13)
[2017-05-18] MEDS: SENNOSIDES 8.6 MG TABLET GT SCH (09:00)
[2017-05-18] MEDS: Z GUARD REMEDY 4 OZ OINT TP SCH ×2 (09:00→21:14)
[2017-05-18] MEDS: ASCORBIC ACID 500 MG TABLET GT SCH (09:00)
[2017-05-18 12:00] VITALS: BP 119/68
[2017-05-18] MEDS: FIBERSOURCE HN 1,000 ML BOTTLE GT PRN (18:07)
[2017-05-18] MEDS: ACETAMINOPHEN 650 MG/20 ML UDC- FOR SA PATIENTS ONLY GT PRN (18:13)
[2017-05-18 18:17] VITALS: BP 108/60
[2017-05-18 19:51] VITALS: BP 120/52
[2017-05-18] MEDS: DULOXETINE HCL 30 MG CAPSULE.DR GT SCH (21:14)
[2017-05-18] MEDS: MAGNESIUM HYDROXIDE 30 ML UDC GT PRN (21:14)
[2017-05-18] MEDS: SIMETHICONE SUSP 40 MG/0.6 ML BOTTLE GT PRN (21:14)
[2017-05-19] VITALS (7 sets, daily range): BP systolic 93–135; BP diastolic 58–81
[2017-05-19] MEDS: IPRATROPIUM NEB FS 0.5 MG/2.5 ML AMPUL.NEB NEB SCH ×4 (01:26→20:23)
[2017-05-19] MEDS: ALBUTEROL HALF STRENGTH 1.25 MG/3 ML VIAL.NEB NEB SCH ×4 (01:26→20:23)
[2017-05-19] MEDS: LEVOTHYROXINE SODIUM 25 MCG TABLET GT SCH (05:15)
[2017-05-19] MEDS: OMEPRAZOLE 20 MG CAPSULE.DR GT SCH (05:15)
[2017-05-19] MEDS: ASCORBIC ACID 500 MG TABLET GT SCH (08:43)
[2017-05-19] MEDS: ZINC SULFATE 220 MG CAPSULE GT SCH (08:43)
[2017-05-19] MEDS: METOCLOPRAMIDE HCL 10 MG TABLET PO SCH ×3 (08:43→17:00)
[2017-05-19] MEDS: MECLIZINE HCL 12.5 MG TABLET GT SCH ×2 (08:43→20:28)
[2017-05-19] MEDS: SENNOSIDES 8.6 MG TABLET GT SCH (08:43)
[2017-05-19] MEDS: FERROUS SULFATE - FOR SA ONLY 330 MG/7.5 ML UDC GT SCH (08:43)
[2017-05-19] MEDS: CYANOCOBALAMIN 500 MCG TABLET GT SCH (08:43)
[2017-05-19] MEDS: POLYETHYLENE GLYCOL 3350 17 GM POWD.PACK GT SCH (08:43)
[2017-05-19] MEDS: Z GUARD REMEDY 4 OZ OINT TP SCH ×2 (08:44→20:28)
[2017-05-19] MEDS: HYDROGEN PEROXIDE 480 ML BOTTLE TP SCH ×2 (08:44→20:28)
[2017-05-19] MEDS: FIBERSOURCE HN 1,000 ML BOTTLE GT PRN (16:30)
[2017-05-19] MEDS: SIMETHICONE SUSP 40 MG/0.6 ML BOTTLE GT PRN (20:28)
[2017-05-19] MEDS: MAGNESIUM HYDROXIDE 30 ML UDC GT PRN (20:29)
[2017-05-19] MEDS: DULOXETINE HCL 30 MG CAPSULE.DR GT SCH (21:17)
[2017-05-20 01:02] VITALS: BP 122/61
[2017-05-20] MEDS: IPRATROPIUM NEB FS 0.5 MG/2.5 ML AMPUL.NEB NEB SCH ×4 (01:26→19:55)
[2017-05-20] MEDS: ALBUTEROL HALF STRENGTH 1.25 MG/3 ML VIAL.NEB NEB SCH ×4 (01:26→19:55)
[2017-05-20] MEDS: LEVOTHYROXINE SODIUM 25 MCG TABLET GT SCH (05:18)
[2017-05-20] MEDS: SIMETHICONE SUSP 40 MG/0.6 ML BOTTLE GT PRN ×2 (05:18→21:27)
[2017-05-20] MEDS: OMEPRAZOLE 20 MG CAPSULE.DR GT SCH (05:18)
[2017-05-20 06:06] VITALS: BP 119/66
[2017-05-20 07:56] VITALS: BP 128/76
[2017-05-20] MEDS: FERROUS SULFATE - FOR SA ONLY 330 MG/7.5 ML UDC GT SCH (09:46)
[2017-05-20] MEDS: POLYETHYLENE GLYCOL 3350 17 GM POWD.PACK GT SCH (09:46)
[2017-05-20] MEDS: METOCLOPRAMIDE HCL 10 MG TABLET PO SCH ×3 (09:46→16:27)
[2017-05-20] MEDS: MECLIZINE HCL 12.5 MG TABLET GT SCH ×2 (09:46→20:20)
[2017-05-20] MEDS: SENNOSIDES 8.6 MG TABLET GT SCH (09:46)
[2017-05-20] MEDS: ZINC SULFATE 220 MG CAPSULE GT SCH (09:46)
[2017-05-20] MEDS: ASCORBIC ACID 500 MG TABLET GT SCH (09:46)
[2017-05-20] MEDS: CYANOCOBALAMIN 500 MCG TABLET GT SCH (09:46)
[2017-05-20] MEDS: Z GUARD REMEDY 4 OZ OINT TP SCH ×2 (09:47→20:20)
[2017-05-20] MEDS: HYDROGEN PEROXIDE 480 ML BOTTLE TP SCH ×2 (09:47→20:20)
[2017-05-20] MEDS: FIBERSOURCE HN 1,000 ML BOTTLE GT PRN (09:53)
[2017-05-20 12:00] VITALS: BP 117/59
[2017-05-20] MEDS: ACETAMINOPHEN 650 MG/20 ML UDC- FOR SA PATIENTS ONLY GT PRN (12:52)
[2017-05-20 18:01] VITALS: BP 105/64
[2017-05-20 19:47] VITALS: BP 116/54
[2017-05-20] MEDS: DULOXETINE HCL 30 MG CAPSULE.DR GT SCH (21:27)
[2017-05-21 00:18] VITALS: BP 123/79
[2017-05-21] MEDS: IPRATROPIUM NEB FS 0.5 MG/2.5 ML AMPUL.NEB NEB SCH ×4 (01:15→20:07)
[2017-05-21] MEDS: ALBUTEROL HALF STRENGTH 1.25 MG/3 ML VIAL.NEB NEB SCH ×4 (01:15→20:07)
[2017-05-21] MEDS: FIBERSOURCE HN 1,000 ML BOTTLE GT PRN (02:56)
[2017-05-21] MEDS: OMEPRAZOLE 20 MG CAPSULE.DR GT SCH (05:23)
[2017-05-21] MEDS: LEVOTHYROXINE SODIUM 25 MCG TABLET GT SCH (05:23)
[2017-05-21 06:10] VITALS: BP 126/70
[2017-05-21 08:07] VITALS: BP 117/62
[2017-05-21] MEDS: FERROUS SULFATE - FOR SA ONLY 330 MG/7.5 ML UDC GT SCH (09:21)
[2017-05-21] MEDS: CYANOCOBALAMIN 500 MCG TABLET GT SCH (09:21)
[2017-05-21] MEDS: SENNOSIDES 8.6 MG TABLET GT SCH (09:21)
[2017-05-21] MEDS: POLYETHYLENE GLYCOL 3350 17 GM POWD.PACK GT SCH (09:21)
[2017-05-21] MEDS: ASCORBIC ACID 500 MG TABLET GT SCH (09:21)
[2017-05-21] MEDS: MECLIZINE HCL 12.5 MG TABLET GT SCH ×2 (09:21→21:05)
[2017-05-21] MEDS: METOCLOPRAMIDE HCL 10 MG TABLET PO SCH ×3 (09:22→17:23)
[2017-05-21] MEDS: HYDROGEN PEROXIDE 480 ML BOTTLE TP SCH ×2 (09:22→21:05)
[2017-05-21] MEDS: Z GUARD REMEDY 4 OZ OINT TP SCH ×2 (09:22→21:05)
[2017-05-21] MEDS: ZINC SULFATE 220 MG CAPSULE GT SCH (09:22)
[2017-05-21 15:03] VITALS: BP 118/75
[2017-05-21 18:26] VITALS: BP 128/70
[2017-05-21 20:29] VITALS: BP 119/67
[2017-05-21] MEDS: DULOXETINE HCL 30 MG CAPSULE.DR GT SCH (21:05)
[2017-05-22] VITALS (7 sets, daily range): BP systolic 107–130; BP diastolic 59–79
[2017-05-22] MEDS: FIBERSOURCE HN 1,000 ML BOTTLE GT PRN ×2 (00:45→22:52)
[2017-05-22] MEDS: ALBUTEROL HALF STRENGTH 1.25 MG/3 ML VIAL.NEB NEB SCH ×4 (00:59→20:19)
[2017-05-22] MEDS: IPRATROPIUM NEB FS 0.5 MG/2.5 ML AMPUL.NEB NEB SCH ×4 (00:59→20:19)
[2017-05-22] MEDS: OMEPRAZOLE 20 MG CAPSULE.DR GT SCH (06:20)
[2017-05-22] MEDS: LEVOTHYROXINE SODIUM 25 MCG TABLET GT SCH (06:20)
[2017-05-22 06:28] LABS: BASOPHILS % (AUTO) 0.3 % (0.0-2.0); EOSINOPHILS # (AUTO) 0.2 /CMM (0.0-0.7); EOSINOPHILS % (AUTO) 2.6 % (0.0-6.0); HEMATOCRIT 33 % (33-45); HEMOGLOBIN 11.2 g/dL (11.5-14.8); LYMPHOCYTES # (AUTO) 1.7 /CMM (0.8-4.8); LYMPHOCYTES % (AUTO) 18.3 % (20.0-44.0); MEAN CORPUSCULAR HEMOGLOBIN 31 PG (26.0-33.0); MEAN CORPUSCULAR HGB CONC 34 g/dl (31.0-36.0); MEAN CORPUSCULAR VOLUME 92 fL (82-100); MONOCYTES % (AUTO) 10.7 % (2.0-12.0); NEUTROPHILS # (AUTO) 6.5 /CMM (1.8-8.9); NEUTROPHILS % (AUTO) 68.1 % (43.0-81.0); PLATELET COUNT (AUTO) 273 /CMM (150-450); RDW COEFFICIENT OF VARIATION 14.1 (11.5-15.0); RED BLOOD CELL COUNT(AUTO) 3.64 MIL/uL (4.0-5.2); WHITE BLOOD COUNT (AUTO) 9.6 K/uL (4.3-11.0)
[2017-05-22 06:53] LABS: CARBON DIOXIDE 32 mmol/L (21-32); CHLORIDE 102 mmol/L (98-107); CREATININE 0.4 mg/dL (0.6-1.3); GLUCOSE 94 mg/dL (74-106); MAGNESIUM 2.2 mg/dL (1.8-2.4); PHOSPHORUS 4.4 mg/dL (2.5-4.9); POTASSIUM 4.3 mmol/L (3.5-5.1); SODIUM SERUM 135 mmol/L (136-145); UREA NITROGEN, BLOOD 14 mg/dL (7-18)
[2017-05-22] MEDS: POLYETHYLENE GLYCOL 3350 17 GM POWD.PACK GT SCH (08:12)
[2017-05-22] MEDS: MECLIZINE HCL 12.5 MG TABLET GT SCH ×2 (08:12→20:34)
[2017-05-22] MEDS: FERROUS SULFATE - FOR SA ONLY 330 MG/7.5 ML UDC GT SCH (08:12)
[2017-05-22] MEDS: SENNOSIDES 8.6 MG TABLET GT SCH (08:12)
[2017-05-22] MEDS: ASCORBIC ACID 500 MG TABLET GT SCH (08:12)
[2017-05-22] MEDS: CYANOCOBALAMIN 500 MCG TABLET GT SCH (08:12)
[2017-05-22] MEDS: Z GUARD REMEDY 4 OZ OINT TP SCH ×2 (08:12→20:34)
[2017-05-22] MEDS: METOCLOPRAMIDE HCL 10 MG TABLET PO SCH ×3 (08:12→16:13)
[2017-05-22] MEDS: HYDROGEN PEROXIDE 480 ML BOTTLE TP SCH ×2 (08:12→20:34)
[2017-05-22] MEDS: ZINC SULFATE 220 MG CAPSULE GT SCH (08:12)
[2017-05-22] MEDS: DULOXETINE HCL 30 MG CAPSULE.DR GT SCH (21:32)
[2017-05-23 00:06] VITALS: BP 116/60
[2017-05-23] MEDS: IPRATROPIUM NEB FS 0.5 MG/2.5 ML AMPUL.NEB NEB SCH ×4 (02:06→19:49)
[2017-05-23] MEDS: ALBUTEROL HALF STRENGTH 1.25 MG/3 ML VIAL.NEB NEB SCH ×4 (02:06→19:49)
[2017-05-23] MEDS: OMEPRAZOLE 20 MG CAPSULE.DR GT SCH (05:17)
[2017-05-23] MEDS: LEVOTHYROXINE SODIUM 25 MCG TABLET GT SCH (05:17)
[2017-05-23 06:21] VITALS: BP 122/60
[2017-05-23 07:51] VITALS: BP_SYST 112; BP_SYST 122; BP_DIAS 59; BP_DIAS 73
[2017-05-23] MEDS: POLYETHYLENE GLYCOL 3350 17 GM POWD.PACK GT SCH (09:00)
[2017-05-23] MEDS: FERROUS SULFATE - FOR SA ONLY 330 MG/7.5 ML UDC GT SCH (09:00)
[2017-05-23] MEDS: METOCLOPRAMIDE HCL 10 MG TABLET PO SCH ×3 (09:00→17:01)
[2017-05-23] MEDS: ASCORBIC ACID 500 MG TABLET GT SCH (09:00)
[2017-05-23] MEDS: ZINC SULFATE 220 MG CAPSULE GT SCH (09:00)
[2017-05-23] MEDS: Z GUARD REMEDY 4 OZ OINT TP SCH ×2 (09:00→21:10)
[2017-05-23] MEDS: MECLIZINE HCL 12.5 MG TABLET GT SCH ×2 (09:00→21:09)
[2017-05-23] MEDS: CYANOCOBALAMIN 500 MCG TABLET GT SCH (09:00)
[2017-05-23] MEDS: HYDROGEN PEROXIDE 480 ML BOTTLE TP SCH ×2 (09:00→21:09)
[2017-05-23] MEDS: SENNOSIDES 8.6 MG TABLET GT SCH (09:00)
[2017-05-23] MEDS: ONDANSETRON 4 MG TAB.RAPDIS GT PRN (09:29)
[2017-05-23 12:00] VITALS: BP 118/63
[2017-05-23 18:31] VITALS: BP 126/60
[2017-05-23] MEDS: FIBERSOURCE HN 1,000 ML BOTTLE GT PRN (19:22)
[2017-05-23 20:12] VITALS: BP 120/54
[2017-05-23] MEDS: DULOXETINE HCL 30 MG CAPSULE.DR GT SCH (21:10)
[2017-05-24 00:09] VITALS: BP 122/66
[2017-05-24] MEDS: ALBUTEROL HALF STRENGTH 1.25 MG/3 ML VIAL.NEB NEB SCH ×4 (00:42→19:56)
[2017-05-24] MEDS: IPRATROPIUM NEB FS 0.5 MG/2.5 ML AMPUL.NEB NEB SCH ×4 (00:42→19:56)
[2017-05-24] MEDS: OMEPRAZOLE 20 MG CAPSULE.DR GT SCH (05:34)
[2017-05-24] MEDS: LEVOTHYROXINE SODIUM 25 MCG TABLET GT SCH (05:34)
[2017-05-24 06:23] VITALS: BP 130/62
[2017-05-24 07:47] VITALS: BP 116/77
--- NOTE | 2017-05-24 07:54 | NUR ---
Female trach pt received on mechanical vent. Pt bren is secure. Vent is plugged into a red outlet, alarms are set and audible, and BVM is at bedside. Addendum: 05/24/17 at 0755 by MAI PALOMO RT Amended: Links added.
[2017-05-24] MEDS: MECLIZINE HCL 12.5 MG TABLET GT SCH ×2 (09:03→21:07)
[2017-05-24] MEDS: HYDROGEN PEROXIDE 480 ML BOTTLE TP SCH ×2 (09:03→21:07)
[2017-05-24] MEDS: FERROUS SULFATE - FOR SA ONLY 330 MG/7.5 ML UDC GT SCH (09:03)
[2017-05-24] MEDS: SENNOSIDES 8.6 MG TABLET GT SCH (09:03)
[2017-05-24] MEDS: ASCORBIC ACID 500 MG TABLET GT SCH (09:03)
[2017-05-24] MEDS: METOCLOPRAMIDE HCL 10 MG TABLET PO SCH ×3 (09:03→16:45)
[2017-05-24] MEDS: CYANOCOBALAMIN 500 MCG TABLET GT SCH (09:03)
[2017-05-24] MEDS: POLYETHYLENE GLYCOL 3350 17 GM POWD.PACK GT SCH (09:03)
[2017-05-24] MEDS: Z GUARD REMEDY 4 OZ OINT TP SCH ×2 (09:03→21:07)
[2017-05-24] MEDS: ZINC SULFATE 220 MG CAPSULE GT SCH (09:03)
[2017-05-24] MEDS: FIBERSOURCE HN 1,000 ML BOTTLE GT PRN (14:17)
[2017-05-24 14:58] VITALS: BP 116/77
[2017-05-24 18:07] VITALS: BP 122/65
[2017-05-24 19:59] VITALS: BP 136/71
[2017-05-24] MEDS: DULOXETINE HCL 30 MG CAPSULE.DR GT SCH (21:07)
[2017-05-25 00:04] VITALS: BP 126/70
[2017-05-25] MEDS: ALBUTEROL HALF STRENGTH 1.25 MG/3 ML VIAL.NEB NEB SCH ×4 (01:59→19:37)
[2017-05-25] MEDS: IPRATROPIUM NEB FS 0.5 MG/2.5 ML AMPUL.NEB NEB SCH ×4 (01:59→19:37)
[2017-05-25] MEDS: OMEPRAZOLE 20 MG CAPSULE.DR GT SCH (05:21)
[2017-05-25] MEDS: LEVOTHYROXINE SODIUM 25 MCG TABLET GT SCH (05:21)
[2017-05-25 06:06] VITALS: BP 124/66
[2017-05-25 07:44] VITALS: BP 127/72
[2017-05-25] MEDS: POLYETHYLENE GLYCOL 3350 17 GM POWD.PACK GT SCH (09:00)
[2017-05-25] MEDS: FERROUS SULFATE - FOR SA ONLY 330 MG/7.5 ML UDC GT SCH (09:00)
[2017-05-25] MEDS: ZINC SULFATE 220 MG CAPSULE GT SCH (09:00)
[2017-05-25] MEDS: HYDROGEN PEROXIDE 480 ML BOTTLE TP SCH ×2 (09:00→20:36)
[2017-05-25] MEDS: MECLIZINE HCL 12.5 MG TABLET GT SCH ×2 (09:00→20:36)
[2017-05-25] MEDS: Z GUARD REMEDY 4 OZ OINT TP SCH ×2 (09:00→20:37)
[2017-05-25] MEDS: ASCORBIC ACID 500 MG TABLET GT SCH (09:00)
[2017-05-25] MEDS: SENNOSIDES 8.6 MG TABLET GT SCH (09:00)
[2017-05-25] MEDS: CYANOCOBALAMIN 500 MCG TABLET GT SCH (09:00)
[2017-05-25] MEDS: METOCLOPRAMIDE HCL 10 MG TABLET PO SCH ×3 (09:00→16:58)
[2017-05-25] MEDS: FIBERSOURCE HN 1,000 ML BOTTLE GT PRN (10:11)
[2017-05-25 15:25] VITALS: BP 127/72
[2017-05-25 18:26] VITALS: BP 118/60
[2017-05-25] MEDS: MAGNESIUM HYDROXIDE 30 ML UDC GT PRN (18:51)
[2017-05-25 19:36] VITALS: BP 125/75
[2017-05-25] MEDS: SIMETHICONE SUSP 40 MG/0.6 ML BOTTLE GT PRN (20:37)
[2017-05-25] MEDS: DULOXETINE HCL 30 MG CAPSULE.DR GT SCH (21:31)
[2017-05-26 00:03] VITALS: BP 116/68
[2017-05-26] MEDS: ALBUTEROL HALF STRENGTH 1.25 MG/3 ML VIAL.NEB NEB SCH ×4 (01:59→20:04)
[2017-05-26] MEDS: IPRATROPIUM NEB FS 0.5 MG/2.5 ML AMPUL.NEB NEB SCH ×4 (01:59→20:04)
[2017-05-26] MEDS: SIMETHICONE SUSP 40 MG/0.6 ML BOTTLE GT PRN (05:40)
[2017-05-26] MEDS: FIBERSOURCE HN 1,000 ML BOTTLE GT PRN (05:40)
[2017-05-26] MEDS: OMEPRAZOLE 20 MG CAPSULE.DR GT SCH (05:40)
[2017-05-26] MEDS: LEVOTHYROXINE SODIUM 25 MCG TABLET GT SCH (05:40)
[2017-05-26 06:20] VITALS: BP 117/78
[2017-05-26 07:25] VITALS: BP 113/59
[2017-05-26] MEDS: POLYETHYLENE GLYCOL 3350 17 GM POWD.PACK GT SCH (08:39)
[2017-05-26] MEDS: CYANOCOBALAMIN 500 MCG TABLET GT SCH (08:39)
[2017-05-26] MEDS: ZINC SULFATE 220 MG CAPSULE GT SCH (08:39)
[2017-05-26] MEDS: Z GUARD REMEDY 4 OZ OINT TP SCH ×2 (08:39→20:26)
[2017-05-26] MEDS: FERROUS SULFATE - FOR SA ONLY 330 MG/7.5 ML UDC GT SCH (08:39)
[2017-05-26] MEDS: ASCORBIC ACID 500 MG TABLET GT SCH (08:39)
[2017-05-26] MEDS: METOCLOPRAMIDE HCL 10 MG TABLET PO SCH ×3 (08:39→17:00)
[2017-05-26] MEDS: MECLIZINE HCL 12.5 MG TABLET GT SCH ×2 (08:39→20:25)
[2017-05-26] MEDS: HYDROGEN PEROXIDE 480 ML BOTTLE TP SCH ×2 (08:39→20:26)
[2017-05-26] MEDS: SENNOSIDES 8.6 MG TABLET GT SCH (08:39)
[2017-05-26 15:50] VITALS: BP 113/59
[2017-05-26 18:25] VITALS: BP 122/60
[2017-05-26 19:40] VITALS: BP 116/55
[2017-05-26] MEDS: DULOXETINE HCL 30 MG CAPSULE.DR GT SCH (21:09)
[2017-05-27] VITALS: BP 111/58
[2017-05-27] MEDS: FIBERSOURCE HN 1,000 ML BOTTLE GT PRN ×2 (00:41→18:38)
[2017-05-27] MEDS: ALBUTEROL HALF STRENGTH 1.25 MG/3 ML VIAL.NEB NEB SCH ×4 (02:22→19:29)
[2017-05-27] MEDS: IPRATROPIUM NEB FS 0.5 MG/2.5 ML AMPUL.NEB NEB SCH ×4 (02:22→19:29)
[2017-05-27 06:00] VITALS: BP 125/70
[2017-05-27] MEDS: OMEPRAZOLE 20 MG CAPSULE.DR GT SCH (06:02)
[2017-05-27] MEDS: LEVOTHYROXINE SODIUM 25 MCG TABLET GT SCH (06:02)
[2017-05-27 07:28] VITALS: BP 135/71
[2017-05-27] MEDS: HYDROGEN PEROXIDE 480 ML BOTTLE TP SCH ×2 (09:00→21:07)
[2017-05-27] MEDS: Z GUARD REMEDY 4 OZ OINT TP SCH ×2 (09:00→21:07)
[2017-05-27] MEDS: METOCLOPRAMIDE HCL 10 MG TABLET PO SCH ×3 (09:55→16:51)
[2017-05-27] MEDS: MECLIZINE HCL 12.5 MG TABLET GT SCH ×2 (09:55→21:07)
[2017-05-27] MEDS: ASCORBIC ACID 500 MG TABLET GT SCH (09:55)
[2017-05-27] MEDS: ZINC SULFATE 220 MG CAPSULE GT SCH (09:55)
[2017-05-27] MEDS: FERROUS SULFATE - FOR SA ONLY 330 MG/7.5 ML UDC GT SCH (09:55)
[2017-05-27] MEDS: CYANOCOBALAMIN 500 MCG TABLET GT SCH (09:55)
[2017-05-27] MEDS: POLYETHYLENE GLYCOL 3350 17 GM POWD.PACK GT SCH (09:55)
[2017-05-27] MEDS: SENNOSIDES 8.6 MG TABLET GT SCH (09:55)
[2017-05-27 12:00] VITALS: BP 122/70
[2017-05-27] MEDS: CLONIDINE HCL 0.1 MG TABLET GT PRN (16:51)
[2017-05-27 18:09] VITALS: BP 112/64
[2017-05-27 19:41] VITALS: BP 122/65
[2017-05-27] MEDS: DULOXETINE HCL 30 MG CAPSULE.DR GT SCH (21:07)
--- NOTE | 2017-05-27 22:29 | NUR ---
patient was coughing. suctioning was done. member have small emesis after suctioning. patient turn to the side will and feeding stopped. will continue to monitor.
[2017-05-28 00:36] VITALS: BP 118/62
[2017-05-28] MEDS: IPRATROPIUM NEB FS 0.5 MG/2.5 ML AMPUL.NEB NEB SCH ×4 (01:33→19:47)
[2017-05-28] MEDS: ALBUTEROL HALF STRENGTH 1.25 MG/3 ML VIAL.NEB NEB SCH ×4 (01:33→19:47)
[2017-05-28] MEDS: LEVOTHYROXINE SODIUM 25 MCG TABLET GT SCH (05:10)
[2017-05-28] MEDS: OMEPRAZOLE 20 MG CAPSULE.DR GT SCH (05:10)
[2017-05-28] MEDS: ONDANSETRON 4 MG TAB.RAPDIS GT PRN (05:11)
[2017-05-28 06:24] VITALS: BP 123/68
[2017-05-28 07:32] VITALS: BP 154/67
[2017-05-28] MEDS: Z GUARD REMEDY 4 OZ OINT TP SCH ×2 (09:00→20:21)
[2017-05-28] MEDS: FERROUS SULFATE - FOR SA ONLY 330 MG/7.5 ML UDC GT SCH (09:00)
[2017-05-28] MEDS: MECLIZINE HCL 12.5 MG TABLET GT SCH ×2 (09:00→20:21)
[2017-05-28] MEDS: ZINC SULFATE 220 MG CAPSULE GT SCH (09:00)
[2017-05-28] MEDS: HYDROGEN PEROXIDE 480 ML BOTTLE TP SCH ×2 (09:00→20:21)
[2017-05-28] MEDS: CYANOCOBALAMIN 500 MCG TABLET GT SCH (09:00)
[2017-05-28] MEDS: ASCORBIC ACID 500 MG TABLET GT SCH (09:00)
[2017-05-28] MEDS: POLYETHYLENE GLYCOL 3350 17 GM POWD.PACK GT SCH (09:00)
[2017-05-28] MEDS: METOCLOPRAMIDE HCL 10 MG TABLET PO SCH ×3 (09:00→17:29)
[2017-05-28] MEDS: SENNOSIDES 8.6 MG TABLET GT SCH (09:00)
[2017-05-28 14:13] VITALS: BP 122/60
[2017-05-28 18:27] VITALS: BP 120/59
[2017-05-28 20:00] VITALS: BP 118/78
[2017-05-28] MEDS: DULOXETINE HCL 30 MG CAPSULE.DR GT SCH (21:38)
[2017-05-28] MEDS: FIBERSOURCE HN 1,000 ML BOTTLE GT PRN (21:39)
[2017-05-29] VITALS: BP 111/64
[2017-05-29] MEDS: ALBUTEROL HALF STRENGTH 1.25 MG/3 ML VIAL.NEB NEB SCH ×4 (01:38→20:02)
[2017-05-29] MEDS: IPRATROPIUM NEB FS 0.5 MG/2.5 ML AMPUL.NEB NEB SCH ×4 (01:38→20:02)
[2017-05-29] MEDS: LEVOTHYROXINE SODIUM 25 MCG TABLET GT SCH (05:36)
[2017-05-29] MEDS: OMEPRAZOLE 20 MG CAPSULE.DR GT SCH (05:36)
[2017-05-29 06:00] VITALS: BP 120/65
[2017-05-29 07:46] VITALS: BP 137/67
[2017-05-29] MEDS: SENNOSIDES 8.6 MG TABLET GT SCH (08:39)
[2017-05-29] MEDS: FERROUS SULFATE - FOR SA ONLY 330 MG/7.5 ML UDC GT SCH (08:39)
[2017-05-29] MEDS: CYANOCOBALAMIN 500 MCG TABLET GT SCH (08:39)
[2017-05-29] MEDS: POLYETHYLENE GLYCOL 3350 17 GM POWD.PACK GT SCH (08:39)
[2017-05-29] MEDS: ASCORBIC ACID 500 MG TABLET GT SCH (08:39)
[2017-05-29] MEDS: ZINC SULFATE 220 MG CAPSULE GT SCH (08:39)
[2017-05-29] MEDS: MECLIZINE HCL 12.5 MG TABLET GT SCH ×2 (08:39→20:20)
[2017-05-29] MEDS: METOCLOPRAMIDE HCL 10 MG TABLET PO SCH ×3 (08:40→13:39)
[2017-05-29] MEDS: Z GUARD REMEDY 4 OZ OINT TP SCH ×2 (08:42→20:20)
[2017-05-29] MEDS: HYDROGEN PEROXIDE 480 ML BOTTLE TP SCH ×2 (08:42→20:20)
[2017-05-29 18:30] VITALS: BP 137/70
[2017-05-29 20:24] VITALS: BP 114/63
[2017-05-29] MEDS: DULOXETINE HCL 30 MG CAPSULE.DR GT SCH (21:25)
[2017-05-30 00:24] VITALS: BP 122/60
[2017-05-30] MEDS: IPRATROPIUM NEB FS 0.5 MG/2.5 ML AMPUL.NEB NEB SCH ×4 (01:48→19:31)
[2017-05-30] MEDS: ALBUTEROL HALF STRENGTH 1.25 MG/3 ML VIAL.NEB NEB SCH ×4 (01:48→19:31)
[2017-05-30] MEDS: OMEPRAZOLE 20 MG CAPSULE.DR GT SCH (05:15)
[2017-05-30] MEDS: LEVOTHYROXINE SODIUM 25 MCG TABLET GT SCH (05:15)
[2017-05-30 06:18] VITALS: BP 126/60
[2017-05-30 07:48] VITALS: BP 108/63
[2017-05-30] MEDS: POLYETHYLENE GLYCOL 3350 17 GM POWD.PACK GT SCH (09:10)
[2017-05-30] MEDS: CYANOCOBALAMIN 500 MCG TABLET GT SCH (09:10)
[2017-05-30] MEDS: ASCORBIC ACID 500 MG TABLET GT SCH (09:10)
[2017-05-30] MEDS: METOCLOPRAMIDE HCL 10 MG TABLET PO SCH ×3 (09:10→17:00)
[2017-05-30] MEDS: MECLIZINE HCL 12.5 MG TABLET GT SCH ×2 (09:10→21:21)
[2017-05-30] MEDS: SENNOSIDES 8.6 MG TABLET GT SCH (09:10)
[2017-05-30] MEDS: ZINC SULFATE 220 MG CAPSULE GT SCH (09:10)
[2017-05-30] MEDS: FERROUS SULFATE - FOR SA ONLY 330 MG/7.5 ML UDC GT SCH (09:10)
[2017-05-30] MEDS: ONDANSETRON 4 MG TAB.RAPDIS GT PRN (09:13)
[2017-05-30] MEDS: Z GUARD REMEDY 4 OZ OINT TP SCH ×2 (11:00→21:21)
[2017-05-30] MEDS: HYDROGEN PEROXIDE 480 ML BOTTLE TP SCH ×2 (11:00→21:21)
--- NOTE | 2017-05-30 12:50 | NUR ---
Seen by DEVELOPMENT CHEMIST Deneen Hankins. Notified her that pt vomited three times today. Zofran was given but pt vomited right after it was administered. Received order to do KUB, UA, and CBC. Also received order to change Zofran 4 mg q 6 hours PRN GT to IM. Notified pt's daughter.
[2017-05-30 13:22] LABS: EOSINOPHILS % (AUTO) 0.1 % (0.0-6.0); HEMATOCRIT 35 % (33-45); HEMOGLOBIN 11.7 g/dL (11.5-14.8); LYMPHOCYTES # (AUTO) 0.6 /CMM (0.8-4.8); LYMPHOCYTES % (AUTO) 2.9 % (20.0-44.0); MEAN CORPUSCULAR HEMOGLOBIN 30 PG (26.0-33.0); MEAN CORPUSCULAR HGB CONC 33 g/dl (31.0-36.0); MEAN CORPUSCULAR VOLUME 91 fL (82-100); MONOCYTES # (AUTO) 0.3 /CMM (0.1-1.30); MONOCYTES % (AUTO) 1.4 % (2.0-12.0); NEUTROPHILS # (AUTO) 21.6 /CMM (1.8-8.9); NEUTROPHILS % (AUTO) 95.6 % (43.0-81.0); PLATELET COUNT (AUTO) 277 /CMM (150-450); RDW COEFFICIENT OF VARIATION 14.2 (11.5-15.0); RED BLOOD CELL COUNT(AUTO) 3.87 MIL/uL (4.0-5.2); WHITE BLOOD COUNT (AUTO) 22.6 K/uL (4.3-11.0)
[2017-05-30] MEDS ORDERED: ONDANSETRON HCL/PF 4 MG/2 ML VIAL IM PRN (14:30)
--- NOTE | 2017-05-30 14:44 | NUR ---
Relayed KUB and CBC results to AJ Hankins.
--- NOTE | 2017-05-30 15:30 | NUR ---
AJ Hankins ordered to hold GT feeding until further order, leave GT open and let gas out, give D5 1/2 NS at 70 cc/hr IV for 24 hours, KUB tomorrow, do tap water enema x 2 4 hours apart, and to give Reglan 5 mg IV TID for 24 hours then resume Reglan 5 mg TID via GT, Dulcolax suppository after 1st tap water enema. Addendum: 05/30/17 at 1834 by YAMILETH JESUS RN Notified AJ Hankins that pt had 3 bowel movements today, she said to still give enema and suppository.
--- NOTE | 2017-05-30 16:00 | NUR ---
Started D5 1/2 NS at 70 cc/hr. IV peripheral line placed on left hand. Notified pt's daughter of new orders.
--- NOTE | 2017-05-30 16:45 | NUR ---
Administered Reglan 5 mg IV as ordered. Reglan 5 mg via GT held.
[2017-05-30 18:00] VITALS: BP 109/70
[2017-05-30] MEDS ORDERED: METOCLOPRAMIDE HCL 10 MG/2 ML VIAL IV SCH (18:42)
[2017-05-30] MEDS ORDERED: IV D5/0.45 NACL 1,000 ML IV PRN (19:00)
[2017-05-30] MEDS ORDERED: BISACODYL SUPP (10 MG) 10 MG/SUPP.RECT SUPP.RECT RC ONE (19:00)
--- NOTE | 2017-05-30 19:13 | NUR ---
Spoke with pt's daughter again and she is requesting for merchandising director to evaluate pt's formula. She thinks that maybe a change in the formula might help with the vomiting. Endorsed to notify merchandising director.
--- NOTE | 2017-05-30 19:30 | NUR ---
RN NOTES Received pt on D5 1/2 NS @ 70ml/hr. No vomiting at this time. Pt in stable conditioin with no resp distress. Will Continue to monitor.
[2017-05-30 20:15] VITALS: BP 103/60
[2017-05-30] MEDS: DULOXETINE HCL 30 MG CAPSULE.DR GT SCH (21:21)
--- NOTE | 2017-05-30 23:30 | NUR ---
RN NOTES Urine collected and sent to lab.
[2017-05-31 00:26] VITALS: BP 110/60
[2017-05-31] MEDS: IPRATROPIUM NEB FS 0.5 MG/2.5 ML AMPUL.NEB NEB SCH ×4 (00:56→20:09)
[2017-05-31] MEDS: ALBUTEROL HALF STRENGTH 1.25 MG/3 ML VIAL.NEB NEB SCH ×4 (00:56→20:09)
[2017-05-31] MEDS: OMEPRAZOLE 20 MG CAPSULE.DR GT SCH (05:43)
[2017-05-31] MEDS: LEVOTHYROXINE SODIUM 25 MCG TABLET GT SCH (05:43)
[2017-05-31 06:17] VITALS: BP 118/60
--- NOTE | 2017-05-31 06:30 | NUR ---
No episodes of vomiting during shift. Enema and suppository given as ordered and effective. Continue to hold feeding as ordered. No s/s of pain or discomfort at this time. Abdomen soft to touch, non tender and is non distended. Kept clean, dry, and comfortable. Will cotinue to monitor.
[2017-05-31 07:31] LABS: APPEARANCE,URINE CLEAR (CLEAR); BILIRUBIN,URINE NEGATIVE (NEGATIVE); BLOOD, URINE 2+ Ery/uL (NEGATIVE); COLOR,URINE YELLOW (YELLOW); KETONES,URINE NEGATIVE (NEGATIVE); LEUKOCYTE ESTERASE ,URINE TRACE (NEGATIVE); NITRITE, URINE NEGATIVE (NEGATIVE); PH,URINE 7.5 (5.0-8.0); PROTEIN,URINE NEGATIVE (NEGATIVE); UGLUCOSE NEGATIVE (NEGATIVE); UROBILINOGEN,URINE 0.2 EU/dL (0.2)
[2017-05-31 07:37] LABS: BACTERIA,URINE None seen /HPF (None Seen); SQUAMOUS EPITHELIAL CELL,UR Few /HPF (None Seen)
[2017-05-31 07:51] VITALS: BP 136/73
[2017-05-31] MEDS: MECLIZINE HCL 12.5 MG TABLET GT SCH ×2 (09:21→21:09)
[2017-05-31] MEDS: POLYETHYLENE GLYCOL 3350 17 GM POWD.PACK GT SCH (09:22)
[2017-05-31] MEDS: SENNOSIDES 8.6 MG TABLET GT SCH (09:22)
[2017-05-31] MEDS: FERROUS SULFATE - FOR SA ONLY 330 MG/7.5 ML UDC GT SCH (09:22)
[2017-05-31] MEDS: CYANOCOBALAMIN 500 MCG TABLET GT SCH (09:23)
[2017-05-31] MEDS: ASCORBIC ACID 500 MG TABLET GT SCH (09:23)
[2017-05-31] MEDS: ZINC SULFATE 220 MG CAPSULE GT SCH (09:23)
[2017-05-31] MEDS: HYDROGEN PEROXIDE 480 ML BOTTLE TP SCH ×2 (09:23→21:10)
[2017-05-31] MEDS: Z GUARD REMEDY 4 OZ OINT TP SCH ×2 (09:23→21:10)
[2017-05-31 10:35] LABS: APPEARANCE,URINE CLOUDY (CLEAR); BILIRUBIN,URINE NEGATIVE (NEGATIVE); BLOOD, URINE 2+ Ery/uL (NEGATIVE); COLOR,URINE YELLOW (YELLOW); KETONES,URINE NEGATIVE (NEGATIVE); LEUKOCYTE ESTERASE ,URINE 2+ (NEGATIVE); NITRITE, URINE POSITIVE (NEGATIVE); PH,URINE 6.5 (5.0-8.0); PROTEIN,URINE NEGATIVE (NEGATIVE); UGLUCOSE NEGATIVE (NEGATIVE); UROBILINOGEN,URINE 0.2 EU/dL (0.2)
[2017-05-31 10:41] LABS: BACTERIA,URINE Many /HPF (None Seen)
[2017-05-31 10:42] LABS: SQUAMOUS EPITHELIAL CELL,UR Few /HPF (None Seen)
[2017-05-31 14:58] VITALS: BP 136/73
[2017-05-31] MEDS: METOCLOPRAMIDE HCL 10 MG/2 ML VIAL IV SCH (17:18)
[2017-05-31 18:23] VITALS: BP 136/73
[2017-05-31] MEDS ORDERED: METOCLOPRAMIDE HCL 10 MG TABLET GT PRN (19:00)
[2017-05-31 20:00] VITALS: BP 103/61
[2017-05-31] MEDS: DULOXETINE HCL 30 MG CAPSULE.DR GT SCH (21:10)
[2017-06-01 00:12] VITALS: BP 122/64
[2017-06-01] MEDS: ALBUTEROL HALF STRENGTH 1.25 MG/3 ML VIAL.NEB NEB SCH ×5 (01:17→20:15)
[2017-06-01] MEDS: IPRATROPIUM NEB FS 0.5 MG/2.5 ML AMPUL.NEB NEB SCH ×5 (01:17→20:15)
[2017-06-01] MEDS: OMEPRAZOLE 20 MG CAPSULE.DR GT SCH (05:35)
[2017-06-01] MEDS: LEVOTHYROXINE SODIUM 25 MCG TABLET GT SCH (05:35)
[2017-06-01 06:04] VITALS: BP 118/62
[2017-06-01 07:47] VITALS: BP 125/75
[2017-06-01] MEDS: METOCLOPRAMIDE HCL 10 MG/2 ML VIAL IV SCH ×3 (09:45→17:00)
[2017-06-01] MEDS: POLYETHYLENE GLYCOL 3350 17 GM POWD.PACK GT SCH (09:50)
[2017-06-01] MEDS: SENNOSIDES 8.6 MG TABLET GT SCH (09:50)
[2017-06-01] MEDS: ZINC SULFATE 220 MG CAPSULE GT SCH (09:50)
[2017-06-01] MEDS: CYANOCOBALAMIN 500 MCG TABLET GT SCH (09:50)
[2017-06-01] MEDS: FERROUS SULFATE - FOR SA ONLY 330 MG/7.5 ML UDC GT SCH (09:50)
[2017-06-01] MEDS: ASCORBIC ACID 500 MG TABLET GT SCH (09:50)
[2017-06-01] MEDS: HYDROGEN PEROXIDE 480 ML BOTTLE TP SCH ×2 (09:50→20:43)
[2017-06-01] MEDS: Z GUARD REMEDY 4 OZ OINT TP SCH ×2 (09:50→20:44)
[2017-06-01] MEDS: MECLIZINE HCL 12.5 MG TABLET GT SCH ×2 (09:50→20:43)
--- NOTE | 2017-06-01 10:11 | NUR ---
Relayed KUB result to AJ Hankins.
--- NOTE | 2017-06-01 11:30 | NUR ---
AJ Hankins ordered to DC IV fluid D5 1/2 NS and resume GT feeding Fibersource HN at 65 mL/hr x 20 hours a day. Asked her if pt still needs a GI consult. She said she will see the pt today first then go from there.
[2017-06-01] MEDS: FIBERSOURCE HN 1,000 ML BOTTLE GT PRN (11:50)
--- NOTE | 2017-06-01 14:50 | NUR ---
Seen by AJ Hankins. GT feeding has been resumed and pt has had no episode of emesis since it was resumed. AJ Hankins reviewed pt's KUB and previous KUB from 10/15/16. She said that if pt vomits, then have GI doctor see the pt. Received order from AJ Hankins to start Rocephin 1 gm IV q 24 hours for 7 days for increased WBC, CBC on 06/05/17. Notified daughter.
[2017-06-01 15:49] VITALS: BP 125/75
[2017-06-01] MEDS: CEFTRIAXONE 1 G in IV D5W 50 ML IV SCH (18:07)
[2017-06-01 18:22] VITALS: BP 120/70
[2017-06-01] MEDS: DULOXETINE HCL 30 MG CAPSULE.DR GT SCH (22:05)
[2017-06-02 00:28] VITALS: BP 110/68
[2017-06-02] MEDS: IPRATROPIUM NEB FS 0.5 MG/2.5 ML AMPUL.NEB NEB SCH ×4 (02:17→20:02)
[2017-06-02] MEDS: ALBUTEROL HALF STRENGTH 1.25 MG/3 ML VIAL.NEB NEB SCH ×4 (02:17→20:02)
[2017-06-02] MEDS: FIBERSOURCE HN 1,000 ML BOTTLE GT PRN ×2 (04:12→23:44)
[2017-06-02] MEDS: OMEPRAZOLE 20 MG CAPSULE.DR GT SCH (05:29)
[2017-06-02] MEDS: LEVOTHYROXINE SODIUM 25 MCG TABLET GT SCH (05:29)
[2017-06-02 06:36] VITALS: BP 128/58
--- NOTE | 2017-06-02 06:51 | NUR ---
Pt tolerated GT feeding,no emesis noted.Will continue to monitor.
[2017-06-02 07:36] VITALS: BP 125/71
[2017-06-02] MEDS: SENNOSIDES 8.6 MG TABLET GT SCH (08:55)
[2017-06-02] MEDS: CYANOCOBALAMIN 500 MCG TABLET GT SCH (08:55)
[2017-06-02] MEDS: POLYETHYLENE GLYCOL 3350 17 GM POWD.PACK GT SCH (08:55)
[2017-06-02] MEDS: FERROUS SULFATE - FOR SA ONLY 330 MG/7.5 ML UDC GT SCH (08:55)
[2017-06-02] MEDS: ASCORBIC ACID 500 MG TABLET GT SCH (08:55)
[2017-06-02] MEDS: MECLIZINE HCL 12.5 MG TABLET GT SCH ×2 (08:55→21:16)
[2017-06-02] MEDS: ZINC SULFATE 220 MG CAPSULE GT SCH (08:55)
[2017-06-02] MEDS: HYDROGEN PEROXIDE 480 ML BOTTLE TP SCH ×2 (09:19→21:17)
[2017-06-02] MEDS: Z GUARD REMEDY 4 OZ OINT TP SCH ×2 (09:19→21:17)
[2017-06-02] MEDS: METOCLOPRAMIDE HCL 10 MG/2 ML VIAL IV SCH ×2 (09:19→14:33)
[2017-06-02 15:25] VITALS: BP 125/71
[2017-06-02] MEDS: CEFTRIAXONE 1 G in IV D5W 50 ML IV SCH (17:22)
[2017-06-02 18:28] VITALS: BP 118/68
[2017-06-02 19:53] VITALS: BP 128/70
[2017-06-02] MEDS: DULOXETINE HCL 30 MG CAPSULE.DR GT SCH (21:17)
[2017-06-03 00:37] VITALS: BP 99/58
[2017-06-03] MEDS: IPRATROPIUM NEB FS 0.5 MG/2.5 ML AMPUL.NEB NEB SCH ×4 (02:10→19:40)
[2017-06-03] MEDS: ALBUTEROL HALF STRENGTH 1.25 MG/3 ML VIAL.NEB NEB SCH ×4 (02:10→19:40)
[2017-06-03] MEDS: LEVOTHYROXINE SODIUM 25 MCG TABLET GT SCH (06:15)
[2017-06-03] MEDS: OMEPRAZOLE 20 MG CAPSULE.DR GT SCH (06:15)
[2017-06-03 06:16] VITALS: BP 123/64
[2017-06-03 07:35] VITALS: BP 114/62
[2017-06-03] MEDS: CYANOCOBALAMIN 500 MCG TABLET GT SCH (09:00)
[2017-06-03] MEDS: FERROUS SULFATE - FOR SA ONLY 330 MG/7.5 ML UDC GT SCH (09:00)
[2017-06-03] MEDS: SENNOSIDES 8.6 MG TABLET GT SCH (09:00)
[2017-06-03] MEDS: ASCORBIC ACID 500 MG TABLET GT SCH (09:00)
[2017-06-03] MEDS: MECLIZINE HCL 12.5 MG TABLET GT SCH ×2 (09:00→21:14)
[2017-06-03] MEDS: ZINC SULFATE 220 MG CAPSULE GT SCH (09:00)
[2017-06-03] MEDS: POLYETHYLENE GLYCOL 3350 17 GM POWD.PACK GT SCH (09:00)
[2017-06-03 12:00] VITALS: BP 122/62
[2017-06-03] MEDS: HYDROGEN PEROXIDE 480 ML BOTTLE TP SCH ×2 (12:45→21:14)
[2017-06-03] MEDS: Z GUARD REMEDY 4 OZ OINT TP SCH ×2 (12:45→21:14)
[2017-06-03] MEDS: TRAMADOL HCL 50 MG TABLET GT PRN (16:11)
[2017-06-03 18:00] VITALS: BP 139/69
[2017-06-03] MEDS: FIBERSOURCE HN 1,000 ML BOTTLE GT PRN (18:00)
[2017-06-03] MEDS: CEFTRIAXONE 1 G in IV D5W 50 ML IV SCH (18:38)
[2017-06-03 19:54] VITALS: BP 129/63
[2017-06-03] MEDS: DULOXETINE HCL 30 MG CAPSULE.DR GT SCH (21:14)
[2017-06-04] VITALS: BP 134/64
[2017-06-04] MEDS: CLONIDINE HCL 0.1 MG TABLET GT PRN (00:10)
[2017-06-04] MEDS: IPRATROPIUM NEB FS 0.5 MG/2.5 ML AMPUL.NEB NEB SCH ×4 (01:52→19:54)
[2017-06-04] MEDS: ALBUTEROL HALF STRENGTH 1.25 MG/3 ML VIAL.NEB NEB SCH ×4 (01:53→19:54)
[2017-06-04] MEDS: OMEPRAZOLE 20 MG CAPSULE.DR GT SCH (05:58)
[2017-06-04] MEDS: LEVOTHYROXINE SODIUM 25 MCG TABLET GT SCH (05:58)
[2017-06-04 06:00] VITALS: BP 129/68
[2017-06-04 08:00] VITALS: BP 140/70
[2017-06-04] MEDS ORDERED: CYANOCOBALAMIN 500 MCG TABLET GT SCH (09:00)
[2017-06-04] MEDS: ZINC SULFATE 220 MG CAPSULE GT SCH (09:38)
[2017-06-04] MEDS: ASCORBIC ACID 500 MG TABLET GT SCH (09:38)
[2017-06-04] MEDS: SENNOSIDES 8.6 MG TABLET GT SCH (09:38)
[2017-06-04] MEDS: POLYETHYLENE GLYCOL 3350 17 GM POWD.PACK GT SCH (09:38)
[2017-06-04] MEDS: FERROUS SULFATE - FOR SA ONLY 330 MG/7.5 ML UDC GT SCH (09:38)
[2017-06-04] MEDS: MECLIZINE HCL 12.5 MG TABLET GT SCH ×2 (09:39→21:48)
[2017-06-04] MEDS: Z GUARD REMEDY 4 OZ OINT TP SCH ×2 (09:42→21:49)
[2017-06-04] MEDS: HYDROGEN PEROXIDE 480 ML BOTTLE TP SCH ×2 (09:42→21:48)
[2017-06-04] MEDS ORDERED: IPRATROPIUM NEB FS 0.5 MG/2.5 ML AMPUL.NEB NEB PRN (12:30)
[2017-06-04] MEDS ORDERED: ALBUTEROL HALF STRENGTH 1.25 MG/3 ML VIAL.NEB NEB PRN (13:00)
[2017-06-04 15:26] VITALS: BP 140/70
[2017-06-04] MEDS: CEFTRIAXONE 1 G in IV D5W 50 ML IV SCH (18:10)
[2017-06-04 18:27] VITALS: BP 128/63
[2017-06-04 20:25] VITALS: BP 109/64
[2017-06-04] MEDS: DULOXETINE HCL 30 MG CAPSULE.DR GT SCH (21:49)
[2017-06-05 00:44] VITALS: BP 122/64
[2017-06-05] MEDS: IPRATROPIUM NEB FS 0.5 MG/2.5 ML AMPUL.NEB NEB SCH ×4 (01:50→19:47)
[2017-06-05] MEDS: ALBUTEROL HALF STRENGTH 1.25 MG/3 ML VIAL.NEB NEB SCH ×4 (01:50→19:47)
[2017-06-05] MEDS: OMEPRAZOLE 20 MG CAPSULE.DR GT SCH (05:28)
[2017-06-05] MEDS: LEVOTHYROXINE SODIUM 25 MCG TABLET GT SCH (05:28)
[2017-06-05 06:02] VITALS: BP 119/62
[2017-06-05 06:40] LABS: BASOPHILS % (AUTO) 0.2 % (0.0-2.0); EOSINOPHILS # (AUTO) 0.3 /CMM (0.0-0.7); EOSINOPHILS % (AUTO) 2.9 % (0.0-6.0); HEMATOCRIT 31 % (33-45); HEMOGLOBIN 10.3 g/dL (11.5-14.8); LYMPHOCYTES # (AUTO) 1.3 /CMM (0.8-4.8); MEAN CORPUSCULAR HEMOGLOBIN 31 PG (26.0-33.0); MEAN CORPUSCULAR HGB CONC 34 g/dl (31.0-36.0); MEAN CORPUSCULAR VOLUME 91 fL (82-100); MONOCYTES % (AUTO) 9.8 % (2.0-12.0); NEUTROPHILS # (AUTO) 7.9 /CMM (1.8-8.9); NEUTROPHILS % (AUTO) 75.1 % (43.0-81.0); PLATELET COUNT (AUTO) 317 /CMM (150-450); RDW COEFFICIENT OF VARIATION 14.2 (11.5-15.0); RED BLOOD CELL COUNT(AUTO) 3.35 MIL/uL (4.0-5.2); WHITE BLOOD COUNT (AUTO) 10.5 K/uL (4.3-11.0)
[2017-06-05 07:44] VITALS: BP 108/64
[2017-06-05] MEDS: CYANOCOBALAMIN 500 MCG TABLET GT SCH (08:38)
[2017-06-05] MEDS: FERROUS SULFATE - FOR SA ONLY 330 MG/7.5 ML UDC GT SCH (08:38)
[2017-06-05] MEDS: SENNOSIDES 8.6 MG TABLET GT SCH (08:38)
[2017-06-05] MEDS: POLYETHYLENE GLYCOL 3350 17 GM POWD.PACK GT SCH (08:38)
[2017-06-05] MEDS: MECLIZINE HCL 12.5 MG TABLET GT SCH ×2 (08:38→21:26)
[2017-06-05] MEDS: ASCORBIC ACID 500 MG TABLET GT SCH (08:39)
[2017-06-05] MEDS: ZINC SULFATE 220 MG CAPSULE GT SCH (08:39)
[2017-06-05] MEDS: HYDROGEN PEROXIDE 480 ML BOTTLE TP SCH ×2 (08:39→21:26)
[2017-06-05] MEDS: Z GUARD REMEDY 4 OZ OINT TP SCH ×2 (08:39→21:26)
[2017-06-05 13:56] VITALS: BP 127/72
[2017-06-05] MEDS: CEFTRIAXONE 1 G in IV D5W 50 ML IV SCH (17:31)
[2017-06-05 18:49] VITALS: BP 111/69
[2017-06-05 20:09] VITALS: BP 133/68
[2017-06-05] MEDS: DULOXETINE HCL 30 MG CAPSULE.DR GT SCH (21:26)
[2017-06-06 00:37] VITALS: BP 116/59
[2017-06-06] MEDS: IPRATROPIUM NEB FS 0.5 MG/2.5 ML AMPUL.NEB NEB SCH ×4 (02:18→20:21)
[2017-06-06] MEDS: ALBUTEROL HALF STRENGTH 1.25 MG/3 ML VIAL.NEB NEB SCH ×4 (02:18→20:21)
[2017-06-06] MEDS: OMEPRAZOLE 20 MG CAPSULE.DR GT SCH (06:05)
[2017-06-06] MEDS: LEVOTHYROXINE SODIUM 25 MCG TABLET GT SCH (06:05)
[2017-06-06 06:06] VITALS: BP 112/64
[2017-06-06 08:06] VITALS: BP 138/67
[2017-06-06] MEDS: ZINC SULFATE 220 MG CAPSULE GT SCH (09:58)
[2017-06-06] MEDS: MECLIZINE HCL 12.5 MG TABLET GT SCH ×2 (09:58→21:12)
[2017-06-06] MEDS: HYDROGEN PEROXIDE 480 ML BOTTLE TP SCH ×2 (09:58→21:12)
[2017-06-06] MEDS: POLYETHYLENE GLYCOL 3350 17 GM POWD.PACK GT SCH (09:58)
[2017-06-06] MEDS: Z GUARD REMEDY 4 OZ OINT TP SCH ×2 (09:58→21:12)
[2017-06-06] MEDS: FERROUS SULFATE - FOR SA ONLY 330 MG/7.5 ML UDC GT SCH (09:58)
[2017-06-06] MEDS: ASCORBIC ACID 500 MG TABLET GT SCH (09:58)
[2017-06-06] MEDS: CYANOCOBALAMIN 500 MCG TABLET GT SCH (09:58)
[2017-06-06] MEDS: SENNOSIDES 8.6 MG TABLET GT SCH (09:58)
[2017-06-06 12:00] VITALS: BP 122/70
[2017-06-06] MEDS: FIBERSOURCE HN 1,000 ML BOTTLE GT PRN (16:35)
[2017-06-06 18:00] VITALS: BP 128/70
[2017-06-06] MEDS: CEFTRIAXONE 1 G in IV D5W 50 ML IV SCH (18:02)
--- NOTE | 2017-06-06 18:47 | NUR ---
Late entry for 06/05/17 Seen by RIM TURNING MACHINE OPERATOR Deneen Hankins. Relayed CBC result to her. WBC has improved from 22.6 to 10.5. No new order.
[2017-06-06 19:33] VITALS: BP 135/62
[2017-06-06] MEDS: DULOXETINE HCL 30 MG CAPSULE.DR GT SCH (21:12)
[2017-06-07] MEDS: IPRATROPIUM NEB FS 0.5 MG/2.5 ML AMPUL.NEB NEB SCH ×4 (01:35→19:51)
[2017-06-07] MEDS: ALBUTEROL HALF STRENGTH 1.25 MG/3 ML VIAL.NEB NEB SCH ×4 (01:35→19:51)
[2017-06-07 03:17] VITALS: BP 119/69
[2017-06-07] MEDS: OMEPRAZOLE 20 MG CAPSULE.DR GT SCH (05:42)
[2017-06-07] MEDS: LEVOTHYROXINE SODIUM 25 MCG TABLET GT SCH (05:42)
[2017-06-07 06:17] VITALS: BP 126/58
[2017-06-07 07:55] VITALS: BP 117/54
[2017-06-07] MEDS: MECLIZINE HCL 12.5 MG TABLET GT SCH ×2 (09:30→21:58)
[2017-06-07] MEDS: POLYETHYLENE GLYCOL 3350 17 GM POWD.PACK GT SCH (09:30)
[2017-06-07] MEDS: SENNOSIDES 8.6 MG TABLET GT SCH (09:30)
[2017-06-07] MEDS: FERROUS SULFATE - FOR SA ONLY 330 MG/7.5 ML UDC GT SCH (09:30)
[2017-06-07] MEDS: ASCORBIC ACID 500 MG TABLET GT SCH (09:31)
[2017-06-07] MEDS: ZINC SULFATE 220 MG CAPSULE GT SCH (09:31)
[2017-06-07] MEDS: CYANOCOBALAMIN 500 MCG TABLET GT SCH (09:31)
[2017-06-07] MEDS: FIBERSOURCE HN 1,000 ML BOTTLE GT PRN (09:39)
[2017-06-07 12:00] VITALS: BP 125/84
[2017-06-07] MEDS: Z GUARD REMEDY 4 OZ OINT TP SCH ×2 (12:44→21:58)
[2017-06-07] MEDS: HYDROGEN PEROXIDE 480 ML BOTTLE TP SCH ×2 (12:44→21:58)
[2017-06-07] MEDS: CLONIDINE HCL 0.1 MG TABLET GT PRN ×2 (12:45→18:00)
[2017-06-07 18:08] VITALS: BP 123/74
[2017-06-07] MEDS: CEFTRIAXONE 1 G in IV D5W 50 ML IV SCH (18:20)
[2017-06-07 19:36] VITALS: BP 118/75
[2017-06-07] MEDS: DULOXETINE HCL 30 MG CAPSULE.DR GT SCH (21:59)
[2017-06-08 00:09] VITALS: BP 121/72
[2017-06-08] MEDS: IPRATROPIUM NEB FS 0.5 MG/2.5 ML AMPUL.NEB NEB SCH ×4 (02:09→19:31)
[2017-06-08] MEDS: ALBUTEROL HALF STRENGTH 1.25 MG/3 ML VIAL.NEB NEB SCH ×4 (02:09→19:31)
[2017-06-08] MEDS: FIBERSOURCE HN 1,000 ML BOTTLE GT PRN (03:48)
[2017-06-08] MEDS: OMEPRAZOLE 20 MG CAPSULE.DR GT SCH (05:30)
[2017-06-08] MEDS: LEVOTHYROXINE SODIUM 25 MCG TABLET GT SCH (05:30)
[2017-06-08 06:22] VITALS: BP 117/86
[2017-06-08 07:30] VITALS: BP 106/68
[2017-06-08] MEDS: MECLIZINE HCL 12.5 MG TABLET GT SCH ×2 (09:46→20:33)
[2017-06-08] MEDS: POLYETHYLENE GLYCOL 3350 17 GM POWD.PACK GT SCH (09:46)
[2017-06-08] MEDS: FERROUS SULFATE - FOR SA ONLY 330 MG/7.5 ML UDC GT SCH (09:46)
[2017-06-08] MEDS: SENNOSIDES 8.6 MG TABLET GT SCH (09:51)
[2017-06-08] MEDS: CYANOCOBALAMIN 500 MCG TABLET GT SCH (09:52)
[2017-06-08] MEDS: ASCORBIC ACID 500 MG TABLET GT SCH (09:53)
[2017-06-08] MEDS: HYDROGEN PEROXIDE 480 ML BOTTLE TP SCH ×2 (09:53→20:34)
[2017-06-08] MEDS: Z GUARD REMEDY 4 OZ OINT TP SCH ×3 (09:53→20:34)
[2017-06-08] MEDS: ZINC SULFATE 220 MG CAPSULE GT SCH (09:53)
[2017-06-08 12:00] VITALS: BP 128/54
[2017-06-08] MEDS ORDERED: Z GUARD REMEDY 4 OZ OINT TP PRN (18:00)
[2017-06-08 20:03] VITALS: BP 114/62
[2017-06-08] MEDS: DULOXETINE HCL 30 MG CAPSULE.DR GT SCH (21:21)
[2017-06-09] VITALS: BP 118/60
[2017-06-09] MEDS: FIBERSOURCE HN 1,000 ML BOTTLE GT PRN ×2 (00:23→21:26)
[2017-06-09] MEDS: ALBUTEROL HALF STRENGTH 1.25 MG/3 ML VIAL.NEB NEB SCH ×4 (01:54→20:04)
[2017-06-09] MEDS: IPRATROPIUM NEB FS 0.5 MG/2.5 ML AMPUL.NEB NEB SCH ×4 (01:54→20:04)
[2017-06-09] MEDS: LEVOTHYROXINE SODIUM 25 MCG TABLET GT SCH (05:18)
[2017-06-09] MEDS: OMEPRAZOLE 20 MG CAPSULE.DR GT SCH (05:18)
[2017-06-09 06:00] VITALS: BP 126/64
[2017-06-09 08:12] VITALS: BP 120/58
[2017-06-09] MEDS: SENNOSIDES 8.6 MG TABLET GT SCH (09:00)
[2017-06-09] MEDS: CYANOCOBALAMIN 500 MCG TABLET GT SCH (09:00)
[2017-06-09] MEDS: ASCORBIC ACID 500 MG TABLET GT SCH (09:00)
[2017-06-09] MEDS: FERROUS SULFATE - FOR SA ONLY 330 MG/7.5 ML UDC GT SCH (09:00)
[2017-06-09] MEDS: ZINC SULFATE 220 MG CAPSULE GT SCH (09:00)
[2017-06-09] MEDS: HYDROGEN PEROXIDE 480 ML BOTTLE TP SCH ×2 (09:00→21:25)
[2017-06-09] MEDS: MECLIZINE HCL 12.5 MG TABLET GT SCH ×2 (09:00→21:25)
[2017-06-09] MEDS: POLYETHYLENE GLYCOL 3350 17 GM POWD.PACK GT SCH (09:00)
[2017-06-09] MEDS: Z GUARD REMEDY 4 OZ OINT TP SCH ×4 (09:00→21:25)
[2017-06-09 12:00] VITALS: BP 110/60
[2017-06-09] MEDS: CLONIDINE HCL 0.1 MG TABLET GT PRN ×2 (13:50→16:18)
--- NOTE | 2017-06-09 14:00 | NUR ---
IDT meeting held, resident's daughter Cheli participated the meeting via conference call. Reviewed current orders and treatment. RNA mentioned that patient is refusing application of hand splints, therapist recommended OT to reevaluate current splint. Daughter also wanted to find out if RT can put PMV when family is around. Dr. John gave orders on the above concern.
[2017-06-09 19:23] VITALS: BP 143/64
[2017-06-09] MEDS: DULOXETINE HCL 30 MG CAPSULE.DR GT SCH (21:26)
[2017-06-09 23:19] VITALS: BP 128/57
[2017-06-10 00:19] VITALS: BP 128/74
[2017-06-10] MEDS: IPRATROPIUM NEB FS 0.5 MG/2.5 ML AMPUL.NEB NEB SCH ×4 (00:57→19:14)
[2017-06-10] MEDS: ALBUTEROL HALF STRENGTH 1.25 MG/3 ML VIAL.NEB NEB SCH ×4 (00:57→19:14)
[2017-06-10] MEDS: LEVOTHYROXINE SODIUM 25 MCG TABLET GT SCH (05:05)
[2017-06-10] MEDS: OMEPRAZOLE 20 MG CAPSULE.DR GT SCH (05:05)
[2017-06-10 06:01] VITALS: BP 124/68
[2017-06-10 07:39] VITALS: BP 138/70
[2017-06-10] MEDS: POLYETHYLENE GLYCOL 3350 17 GM POWD.PACK GT SCH (09:18)
[2017-06-10] MEDS: ZINC SULFATE 220 MG CAPSULE GT SCH (09:18)
[2017-06-10] MEDS: FERROUS SULFATE - FOR SA ONLY 330 MG/7.5 ML UDC GT SCH (09:18)
[2017-06-10] MEDS: MECLIZINE HCL 12.5 MG TABLET GT SCH ×2 (09:18→21:13)
[2017-06-10] MEDS: SENNOSIDES 8.6 MG TABLET GT SCH (09:18)
[2017-06-10] MEDS: HYDROGEN PEROXIDE 480 ML BOTTLE TP SCH ×2 (09:18→20:47)
[2017-06-10] MEDS: ASCORBIC ACID 500 MG TABLET GT SCH (09:18)
[2017-06-10] MEDS: CYANOCOBALAMIN 500 MCG TABLET GT SCH (09:18)
[2017-06-10] MEDS: Z GUARD REMEDY 4 OZ OINT TP SCH ×4 (09:19→20:47)
--- NOTE | 2017-06-10 10:00 | NUR ---
Seen and examined by NERY PetersO given.
[2017-06-10] MEDS: TRAMADOL HCL 50 MG TABLET GT PRN (11:54)
[2017-06-10 12:00] VITALS: BP 122/68
[2017-06-10 18:08] VITALS: BP 126/61
--- NOTE | 2017-06-10 18:43 | NUR ---
Resident's daughter visited, PMV was placed for about 20-25 minutes by RT, patient saturating 100% no s/s of respiratory distress. Patient unable to produce any sound with PMV. Daughter remain at bedside while patient on PMV.
[2017-06-10 19:43] VITALS: BP 135/78
[2017-06-10] MEDS: DULOXETINE HCL 30 MG CAPSULE.DR GT SCH (21:13)
[2017-06-11 00:11] VITALS: BP 128/64
[2017-06-11] MEDS: IPRATROPIUM NEB FS 0.5 MG/2.5 ML AMPUL.NEB NEB SCH ×4 (01:13→19:39)
[2017-06-11] MEDS: ALBUTEROL HALF STRENGTH 1.25 MG/3 ML VIAL.NEB NEB SCH ×4 (01:14→19:40)
[2017-06-11] MEDS: OMEPRAZOLE 20 MG CAPSULE.DR GT SCH (05:43)
[2017-06-11] MEDS: LEVOTHYROXINE SODIUM 25 MCG TABLET GT SCH (05:43)
[2017-06-11 06:22] VITALS: BP 125/72
[2017-06-11 08:00] VITALS: BP 133/65
[2017-06-11] MEDS: CYANOCOBALAMIN 500 MCG TABLET GT SCH (09:34)
[2017-06-11] MEDS: SENNOSIDES 8.6 MG TABLET GT SCH (09:34)
[2017-06-11] MEDS: FERROUS SULFATE - FOR SA ONLY 330 MG/7.5 ML UDC GT SCH (09:34)
[2017-06-11] MEDS: HYDROGEN PEROXIDE 480 ML BOTTLE TP SCH ×2 (09:34→20:57)
[2017-06-11] MEDS: Z GUARD REMEDY 4 OZ OINT TP SCH ×4 (09:34→20:57)
[2017-06-11] MEDS: POLYETHYLENE GLYCOL 3350 17 GM POWD.PACK GT SCH (09:34)
[2017-06-11] MEDS: MECLIZINE HCL 12.5 MG TABLET GT SCH ×2 (09:34→20:57)
[2017-06-11] MEDS: ASCORBIC ACID 500 MG TABLET GT SCH (09:34)
[2017-06-11] MEDS: ZINC SULFATE 220 MG CAPSULE GT SCH (09:34)
[2017-06-11 13:19] VITALS: BP 126/68
[2017-06-11 18:09] VITALS: BP 122/70
[2017-06-11 20:25] VITALS: BP 114/73
[2017-06-11] MEDS: DULOXETINE HCL 30 MG CAPSULE.DR GT SCH (21:06)
[2017-06-12 00:12] VITALS: BP 119/69
[2017-06-12] MEDS: IPRATROPIUM NEB FS 0.5 MG/2.5 ML AMPUL.NEB NEB SCH ×4 (01:08→20:09)
[2017-06-12] MEDS: ALBUTEROL HALF STRENGTH 1.25 MG/3 ML VIAL.NEB NEB SCH ×4 (01:08→20:09)
[2017-06-12] MEDS: OMEPRAZOLE 20 MG CAPSULE.DR GT SCH (05:42)
[2017-06-12] MEDS: LEVOTHYROXINE SODIUM 25 MCG TABLET GT SCH (05:43)
[2017-06-12 06:12] VITALS: BP 122/60
[2017-06-12 08:00] VITALS: BP 111/70
[2017-06-12] MEDS: FERROUS SULFATE - FOR SA ONLY 330 MG/7.5 ML UDC GT SCH (08:36)
[2017-06-12] MEDS: MECLIZINE HCL 12.5 MG TABLET GT SCH ×2 (08:36→21:31)
[2017-06-12] MEDS: ZINC SULFATE 220 MG CAPSULE GT SCH (08:37)
[2017-06-12] MEDS: ASCORBIC ACID 500 MG TABLET GT SCH (08:37)
[2017-06-12] MEDS: CYANOCOBALAMIN 500 MCG TABLET GT SCH (08:37)
[2017-06-12] MEDS: SENNOSIDES 8.6 MG TABLET GT SCH (08:37)
[2017-06-12] MEDS: POLYETHYLENE GLYCOL 3350 17 GM POWD.PACK GT SCH (08:37)
[2017-06-12] MEDS: HYDROGEN PEROXIDE 480 ML BOTTLE TP SCH ×2 (09:00→21:31)
[2017-06-12] MEDS: Z GUARD REMEDY 4 OZ OINT TP SCH ×4 (09:00→21:31)
[2017-06-12 14:40] VITALS: BP 109/65
[2017-06-12 18:41] VITALS: BP 113/64
[2017-06-12 19:45] VITALS: BP 116/56
[2017-06-12] MEDS: DULOXETINE HCL 30 MG CAPSULE.DR GT SCH (21:31)
[2017-06-13 00:02] VITALS: BP 119/62
[2017-06-13] MEDS: ALBUTEROL HALF STRENGTH 1.25 MG/3 ML VIAL.NEB NEB SCH ×4 (01:54→20:02)
[2017-06-13] MEDS: IPRATROPIUM NEB FS 0.5 MG/2.5 ML AMPUL.NEB NEB SCH ×4 (01:54→20:02)
[2017-06-13] MEDS: OMEPRAZOLE 20 MG CAPSULE.DR GT SCH (05:37)
[2017-06-13] MEDS: LEVOTHYROXINE SODIUM 25 MCG TABLET GT SCH (05:37)
[2017-06-13 06:02] VITALS: BP 126/69
[2017-06-13 06:03] VITALS: BP 126/69
[2017-06-13] MEDS: POLYETHYLENE GLYCOL 3350 17 GM POWD.PACK GT SCH (08:19)
[2017-06-13] MEDS: ZINC SULFATE 220 MG CAPSULE GT SCH (08:19)
[2017-06-13] MEDS: MECLIZINE HCL 12.5 MG TABLET GT SCH ×2 (08:19→21:21)
[2017-06-13] MEDS: SENNOSIDES 8.6 MG TABLET GT SCH (08:19)
[2017-06-13] MEDS: ASCORBIC ACID 500 MG TABLET GT SCH (08:19)
[2017-06-13] MEDS: CYANOCOBALAMIN 500 MCG TABLET GT SCH (08:19)
[2017-06-13] MEDS: FERROUS SULFATE - FOR SA ONLY 330 MG/7.5 ML UDC GT SCH (08:19)
[2017-06-13] MEDS: Z GUARD REMEDY 4 OZ OINT TP SCH ×4 (09:00→21:21)
[2017-06-13] MEDS: HYDROGEN PEROXIDE 480 ML BOTTLE TP SCH ×2 (09:00→21:21)
[2017-06-13 14:49] VITALS: BP 115/67
[2017-06-13 18:29] VITALS: BP 123/71
[2017-06-13 20:06] VITALS: BP 103/68
[2017-06-13] MEDS: DULOXETINE HCL 30 MG CAPSULE.DR GT SCH (21:21)
[2017-06-14 00:33] VITALS: BP 136/70
[2017-06-14] MEDS: ALBUTEROL HALF STRENGTH 1.25 MG/3 ML VIAL.NEB NEB SCH ×4 (01:29→20:06)
[2017-06-14] MEDS: IPRATROPIUM NEB FS 0.5 MG/2.5 ML AMPUL.NEB NEB SCH ×4 (01:29→20:06)
[2017-06-14] MEDS: CYANOCOBALAMIN 500 MCG TABLET GT SCH (09:23)
[2017-06-14] MEDS: MECLIZINE HCL 12.5 MG TABLET GT SCH ×2 (09:23→21:43)
[2017-06-14] MEDS: FERROUS SULFATE - FOR SA ONLY 330 MG/7.5 ML UDC GT SCH (09:23)
[2017-06-14] MEDS: ASCORBIC ACID 500 MG TABLET GT SCH (09:23)
[2017-06-14] MEDS: SENNOSIDES 8.6 MG TABLET GT SCH (09:23)
[2017-06-14] MEDS: POLYETHYLENE GLYCOL 3350 17 GM POWD.PACK GT SCH (09:23)
[2017-06-14] MEDS: ZINC SULFATE 220 MG CAPSULE GT SCH (09:23)
[2017-06-14] MEDS: Z GUARD REMEDY 4 OZ OINT TP SCH ×4 (09:24→21:43)
[2017-06-14 09:48] VITALS: BP 134/68
[2017-06-14 12:00] VITALS: BP 110/60
[2017-06-14] MEDS: HYDROGEN PEROXIDE 480 ML BOTTLE TP SCH ×2 (12:03→21:43)
[2017-06-14] MEDS: CLONIDINE HCL 0.1 MG TABLET GT PRN ×2 (12:04→17:31)
[2017-06-14 18:14] VITALS: BP 113/60
[2017-06-14 19:34] VITALS: BP 117/58
[2017-06-14] MEDS: DULOXETINE HCL 30 MG CAPSULE.DR GT SCH (21:43)
[2017-06-15] VITALS (7 sets, daily range): BP systolic 95–140; BP diastolic 60–79
[2017-06-15] MEDS: FIBERSOURCE HN 1,000 ML BOTTLE GT PRN ×2 (01:08→19:52)
[2017-06-15] MEDS: IPRATROPIUM NEB FS 0.5 MG/2.5 ML AMPUL.NEB NEB SCH ×4 (01:40→20:15)
[2017-06-15] MEDS: ALBUTEROL HALF STRENGTH 1.25 MG/3 ML VIAL.NEB NEB SCH ×4 (01:40→20:15)
[2017-06-15] MEDS: LEVOTHYROXINE SODIUM 25 MCG TABLET GT SCH (05:26)
[2017-06-15] MEDS: OMEPRAZOLE 20 MG CAPSULE.DR GT SCH (05:26)
[2017-06-15] MEDS: CYANOCOBALAMIN 500 MCG TABLET GT SCH (09:00)
[2017-06-15] MEDS: HYDROGEN PEROXIDE 480 ML BOTTLE TP SCH ×2 (09:00→21:51)
[2017-06-15] MEDS: MECLIZINE HCL 12.5 MG TABLET GT SCH ×2 (09:00→21:51)
[2017-06-15] MEDS: POLYETHYLENE GLYCOL 3350 17 GM POWD.PACK GT SCH (09:00)
[2017-06-15] MEDS: FERROUS SULFATE - FOR SA ONLY 330 MG/7.5 ML UDC GT SCH (09:00)
[2017-06-15] MEDS: ZINC SULFATE 220 MG CAPSULE GT SCH (09:00)
[2017-06-15] MEDS: SENNOSIDES 8.6 MG TABLET GT SCH (09:00)
[2017-06-15] MEDS: ASCORBIC ACID 500 MG TABLET GT SCH (09:00)
[2017-06-15] MEDS: Z GUARD REMEDY 4 OZ OINT TP SCH ×4 (09:00→21:51)
[2017-06-15] MEDS: MAGNESIUM HYDROXIDE 30 ML UDC GT PRN (21:20)
[2017-06-15] MEDS: DULOXETINE HCL 30 MG CAPSULE.DR GT SCH (21:51)
[2017-06-16] VITALS: BP 120/62
[2017-06-16] MEDS: ALBUTEROL HALF STRENGTH 1.25 MG/3 ML VIAL.NEB NEB SCH ×4 (00:51→19:37)
[2017-06-16] MEDS: IPRATROPIUM NEB FS 0.5 MG/2.5 ML AMPUL.NEB NEB SCH ×4 (00:51→19:37)
[2017-06-16] MEDS: OMEPRAZOLE 20 MG CAPSULE.DR GT SCH (05:21)
[2017-06-16] MEDS: LEVOTHYROXINE SODIUM 25 MCG TABLET GT SCH (05:21)
[2017-06-16 06:00] VITALS: BP 129/64
[2017-06-16 07:42] VITALS: BP 129/67
[2017-06-16] MEDS: MECLIZINE HCL 12.5 MG TABLET GT SCH ×2 (09:00→20:09)
[2017-06-16] MEDS: ZINC SULFATE 220 MG CAPSULE GT SCH (09:00)
[2017-06-16] MEDS: FERROUS SULFATE - FOR SA ONLY 330 MG/7.5 ML UDC GT SCH (09:00)
[2017-06-16] MEDS: POLYETHYLENE GLYCOL 3350 17 GM POWD.PACK GT SCH (09:00)
[2017-06-16] MEDS: SENNOSIDES 8.6 MG TABLET GT SCH (09:00)
[2017-06-16] MEDS: Z GUARD REMEDY 4 OZ OINT TP SCH ×4 (09:00→20:10)
[2017-06-16] MEDS: HYDROGEN PEROXIDE 480 ML BOTTLE TP SCH ×2 (09:00→20:09)
[2017-06-16] MEDS: ASCORBIC ACID 500 MG TABLET GT SCH (09:00)
[2017-06-16] MEDS: CYANOCOBALAMIN 500 MCG TABLET GT SCH (09:00)
[2017-06-16 12:00] VITALS: BP 136/87
[2017-06-16] MEDS: FIBERSOURCE HN 1,000 ML BOTTLE GT PRN (17:37)
[2017-06-16 18:51] VITALS: BP 129/66
[2017-06-16 19:40] VITALS: BP 115/68
[2017-06-16] MEDS: DULOXETINE HCL 30 MG CAPSULE.DR GT SCH (21:48)
[2017-06-17] VITALS: BP 110/47
[2017-06-17] MEDS: ALBUTEROL HALF STRENGTH 1.25 MG/3 ML VIAL.NEB NEB SCH ×4 (01:02→19:39)
[2017-06-17] MEDS: IPRATROPIUM NEB FS 0.5 MG/2.5 ML AMPUL.NEB NEB SCH ×4 (01:02→19:39)
[2017-06-17] MEDS: LEVOTHYROXINE SODIUM 25 MCG TABLET GT SCH (05:58)
[2017-06-17] MEDS: OMEPRAZOLE 20 MG CAPSULE.DR GT SCH (05:59)
[2017-06-17 06:17] VITALS: BP 116/85
[2017-06-17 07:36] VITALS: BP 128/68
[2017-06-17] MEDS: MECLIZINE HCL 12.5 MG TABLET GT SCH ×2 (09:00→21:11)
[2017-06-17] MEDS: HYDROGEN PEROXIDE 480 ML BOTTLE TP SCH ×2 (09:00→21:11)
[2017-06-17] MEDS: ASCORBIC ACID 500 MG TABLET GT SCH (09:00)
[2017-06-17] MEDS: FERROUS SULFATE - FOR SA ONLY 330 MG/7.5 ML UDC GT SCH (09:00)
[2017-06-17] MEDS: SENNOSIDES 8.6 MG TABLET GT SCH (09:00)
[2017-06-17] MEDS: POLYETHYLENE GLYCOL 3350 17 GM POWD.PACK GT SCH (09:00)
[2017-06-17] MEDS: ZINC SULFATE 220 MG CAPSULE GT SCH (09:00)
[2017-06-17] MEDS: Z GUARD REMEDY 4 OZ OINT TP SCH ×4 (09:00→21:11)
[2017-06-17] MEDS: CYANOCOBALAMIN 500 MCG TABLET GT SCH (09:00)
[2017-06-17 12:00] VITALS: BP 121/71
[2017-06-17] MEDS: FIBERSOURCE HN 1,000 ML BOTTLE GT PRN (17:53)
[2017-06-17 18:40] VITALS: BP 124/62
[2017-06-17 19:45] VITALS: BP 115/55
[2017-06-17] MEDS: DULOXETINE HCL 30 MG CAPSULE.DR GT SCH (21:11)
[2017-06-18 00:03] VITALS: BP 114/62
[2017-06-18] MEDS: ALBUTEROL HALF STRENGTH 1.25 MG/3 ML VIAL.NEB NEB SCH ×4 (01:47→20:14)
[2017-06-18] MEDS: IPRATROPIUM NEB FS 0.5 MG/2.5 ML AMPUL.NEB NEB SCH ×4 (01:47→20:14)
[2017-06-18] MEDS: OMEPRAZOLE 20 MG CAPSULE.DR GT SCH (05:30)
[2017-06-18] MEDS: LEVOTHYROXINE SODIUM 25 MCG TABLET GT SCH (05:30)
[2017-06-18 06:16] VITALS: BP 98/63
[2017-06-18 07:49] VITALS: BP 117/65
[2017-06-18] MEDS: MECLIZINE HCL 12.5 MG TABLET GT SCH ×2 (09:24→21:03)
[2017-06-18] MEDS: ASCORBIC ACID 500 MG TABLET GT SCH (09:24)
[2017-06-18] MEDS: FERROUS SULFATE - FOR SA ONLY 330 MG/7.5 ML UDC GT SCH (09:24)
[2017-06-18] MEDS: CYANOCOBALAMIN 500 MCG TABLET GT SCH (09:24)
[2017-06-18] MEDS: Z GUARD REMEDY 4 OZ OINT TP SCH ×4 (09:24→21:04)
[2017-06-18] MEDS: POLYETHYLENE GLYCOL 3350 17 GM POWD.PACK GT SCH (09:24)
[2017-06-18] MEDS: HYDROGEN PEROXIDE 480 ML BOTTLE TP SCH ×2 (09:24→21:03)
[2017-06-18] MEDS: ZINC SULFATE 220 MG CAPSULE GT SCH (09:24)
[2017-06-18] MEDS: SENNOSIDES 8.6 MG TABLET GT SCH (09:24)
[2017-06-18 14:39] VITALS: BP 114/62
[2017-06-18 18:11] VITALS: BP 118/65
[2017-06-18 19:41] VITALS: BP 146/51
[2017-06-18] MEDS: DULOXETINE HCL 30 MG CAPSULE.DR GT SCH (21:36)
[2017-06-19 00:23] VITALS: BP 111/59
[2017-06-19] MEDS: ALBUTEROL HALF STRENGTH 1.25 MG/3 ML VIAL.NEB NEB SCH ×4 (01:59→19:39)
[2017-06-19] MEDS: IPRATROPIUM NEB FS 0.5 MG/2.5 ML AMPUL.NEB NEB SCH ×4 (01:59→19:39)
[2017-06-19] MEDS: OMEPRAZOLE 20 MG CAPSULE.DR GT SCH (05:18)
[2017-06-19] MEDS: LEVOTHYROXINE SODIUM 25 MCG TABLET GT SCH (05:18)
[2017-06-19] MEDS: FIBERSOURCE HN 1,000 ML BOTTLE GT PRN ×2 (05:30→23:51)
[2017-06-19 06:13] VITALS: BP 116/69
--- NOTE | 2017-06-19 07:41 | NUR ---
Female pt received on mechanical vent. Pt trach is secure. Vent is plugged into a red outlet, alarms are set and audible, and BVM is at bedside. Addendum: 06/19/17 at 1029 by MAI PALOMO RT Amended: Links added.
[2017-06-19 07:54] VITALS: BP 136/69
[2017-06-19] MEDS: ZINC SULFATE 220 MG CAPSULE GT SCH (09:00)
[2017-06-19] MEDS: CYANOCOBALAMIN 500 MCG TABLET GT SCH (09:00)
[2017-06-19] MEDS: POLYETHYLENE GLYCOL 3350 17 GM POWD.PACK GT SCH (09:00)
[2017-06-19] MEDS: HYDROGEN PEROXIDE 480 ML BOTTLE TP SCH ×2 (09:00→21:19)
[2017-06-19] MEDS: MECLIZINE HCL 12.5 MG TABLET GT SCH ×2 (09:00→21:19)
[2017-06-19] MEDS: FERROUS SULFATE - FOR SA ONLY 330 MG/7.5 ML UDC GT SCH (09:00)
[2017-06-19] MEDS: Z GUARD REMEDY 4 OZ OINT TP SCH ×4 (09:00→21:19)
[2017-06-19] MEDS: SENNOSIDES 8.6 MG TABLET GT SCH (09:00)
[2017-06-19] MEDS: ASCORBIC ACID 500 MG TABLET GT SCH (09:00)
[2017-06-19 15:55] VITALS: BP 136/69
[2017-06-19 18:49] VITALS: BP 125/72
[2017-06-19 19:51] VITALS: BP 120/81
[2017-06-19] MEDS: DULOXETINE HCL 30 MG CAPSULE.DR GT SCH (21:19)
[2017-06-20 00:08] VITALS: BP 122/74
[2017-06-20] MEDS: ALBUTEROL HALF STRENGTH 1.25 MG/3 ML VIAL.NEB NEB SCH ×4 (01:44→19:53)
[2017-06-20] MEDS: IPRATROPIUM NEB FS 0.5 MG/2.5 ML AMPUL.NEB NEB SCH ×4 (01:44→19:53)
[2017-06-20] MEDS: OMEPRAZOLE 20 MG CAPSULE.DR GT SCH (05:19)
[2017-06-20] MEDS: LEVOTHYROXINE SODIUM 25 MCG TABLET GT SCH (05:19)
[2017-06-20 06:11] VITALS: BP 128/67
[2017-06-20 07:36] VITALS: BP 123/74
--- NOTE | 2017-06-20 07:43 | NUR ---
Female pt received on mechanical vent. Pt receives Q6 breathing tx. Pt trach is secure. Vent is plugged into a red outlet, alarms are set and audible, and BVM is at bedside. Addendum: 06/20/17 at 0744 by MAI PALOMO RT Amended: Links added.
[2017-06-20] MEDS: MECLIZINE HCL 12.5 MG TABLET GT SCH ×2 (09:51→20:48)
[2017-06-20] MEDS: ZINC SULFATE 220 MG CAPSULE GT SCH (09:55)
[2017-06-20] MEDS: SENNOSIDES 8.6 MG TABLET GT SCH (09:55)
[2017-06-20] MEDS: FERROUS SULFATE - FOR SA ONLY 330 MG/7.5 ML UDC GT SCH (09:55)
[2017-06-20] MEDS: CYANOCOBALAMIN 500 MCG TABLET GT SCH (09:55)
[2017-06-20] MEDS: ASCORBIC ACID 500 MG TABLET GT SCH (09:55)
[2017-06-20] MEDS: POLYETHYLENE GLYCOL 3350 17 GM POWD.PACK GT SCH (09:55)
[2017-06-20] MEDS: HYDROGEN PEROXIDE 480 ML BOTTLE TP SCH ×2 (09:59→20:49)
[2017-06-20] MEDS: Z GUARD REMEDY 4 OZ OINT TP SCH ×4 (09:59→20:49)
[2017-06-20 18:50] VITALS: BP 121/72
[2017-06-20] MEDS: FIBERSOURCE HN 1,000 ML BOTTLE GT PRN (18:59)
[2017-06-20 20:00] VITALS: BP 109/65
[2017-06-20] MEDS: DULOXETINE HCL 30 MG CAPSULE.DR GT SCH (22:00)
[2017-06-21 00:19] VITALS: BP 119/69
[2017-06-21] MEDS: IPRATROPIUM NEB FS 0.5 MG/2.5 ML AMPUL.NEB NEB SCH ×4 (01:19→20:06)
[2017-06-21] MEDS: ALBUTEROL HALF STRENGTH 1.25 MG/3 ML VIAL.NEB NEB SCH ×4 (01:19→20:06)
[2017-06-21] MEDS: OMEPRAZOLE 20 MG CAPSULE.DR GT SCH (05:02)
[2017-06-21] MEDS: LEVOTHYROXINE SODIUM 25 MCG TABLET GT SCH (05:02)
[2017-06-21 06:05] VITALS: BP 124/76
[2017-06-21 07:38] VITALS: BP 130/70
[2017-06-21] MEDS: POLYETHYLENE GLYCOL 3350 17 GM POWD.PACK GT SCH (09:15)
[2017-06-21] MEDS: SENNOSIDES 8.6 MG TABLET GT SCH (09:15)
[2017-06-21] MEDS: MECLIZINE HCL 12.5 MG TABLET GT SCH ×2 (09:15→21:00)
[2017-06-21] MEDS: ASCORBIC ACID 500 MG TABLET GT SCH (09:15)
[2017-06-21] MEDS: HYDROGEN PEROXIDE 480 ML BOTTLE TP SCH ×2 (09:15→21:00)
[2017-06-21] MEDS: CYANOCOBALAMIN 500 MCG TABLET GT SCH (09:15)
[2017-06-21] MEDS: ZINC SULFATE 220 MG CAPSULE GT SCH (09:15)
[2017-06-21] MEDS: FERROUS SULFATE - FOR SA ONLY 330 MG/7.5 ML UDC GT SCH (09:15)
[2017-06-21] MEDS: Z GUARD REMEDY 4 OZ OINT TP SCH ×4 (09:16→21:00)
[2017-06-21 14:37] VITALS: BP 123/76
[2017-06-21 18:35] VITALS: BP 118/70
[2017-06-21 20:06] VITALS: BP 109/69
[2017-06-21] MEDS: DULOXETINE HCL 30 MG CAPSULE.DR GT SCH (22:02)
[2017-06-22 00:07] VITALS: BP 115/50
[2017-06-22] MEDS: ALBUTEROL HALF STRENGTH 1.25 MG/3 ML VIAL.NEB NEB SCH ×4 (02:30→20:02)
[2017-06-22] MEDS: IPRATROPIUM NEB FS 0.5 MG/2.5 ML AMPUL.NEB NEB SCH ×4 (02:30→20:02)
[2017-06-22] MEDS: OMEPRAZOLE 20 MG CAPSULE.DR GT SCH (05:36)
[2017-06-22] MEDS: LEVOTHYROXINE SODIUM 25 MCG TABLET GT SCH (05:36)
[2017-06-22] MEDS: FIBERSOURCE HN 1,000 ML BOTTLE GT PRN ×2 (05:36→22:04)
[2017-06-22 06:21] VITALS: BP 119/58
[2017-06-22 07:38] VITALS: BP 121/70
[2017-06-22] MEDS: Z GUARD REMEDY 4 OZ OINT TP SCH ×3 (09:00→21:28)
[2017-06-22] MEDS: POLYETHYLENE GLYCOL 3350 17 GM POWD.PACK GT SCH (09:00)
[2017-06-22] MEDS: CYANOCOBALAMIN 500 MCG TABLET GT SCH (09:00)
[2017-06-22] MEDS: ZINC SULFATE 220 MG CAPSULE GT SCH (09:00)
[2017-06-22] MEDS: SENNOSIDES 8.6 MG TABLET GT SCH (09:00)
[2017-06-22] MEDS: HYDROGEN PEROXIDE 480 ML BOTTLE TP SCH ×2 (09:00→21:27)
[2017-06-22] MEDS: FERROUS SULFATE - FOR SA ONLY 330 MG/7.5 ML UDC GT SCH (09:00)
[2017-06-22] MEDS: ASCORBIC ACID 500 MG TABLET GT SCH (09:00)
[2017-06-22] MEDS: MECLIZINE HCL 12.5 MG TABLET GT SCH ×2 (09:00→21:27)
[2017-06-22 12:00] VITALS: BP 108/67
[2017-06-22 18:32] VITALS: BP 105/62
[2017-06-22] MEDS: DULOXETINE HCL 30 MG CAPSULE.DR GT SCH (21:28)
[2017-06-23] VITALS (7 sets, daily range): BP systolic 107–119; BP diastolic 55–73
[2017-06-23] MEDS: IPRATROPIUM NEB FS 0.5 MG/2.5 ML AMPUL.NEB NEB SCH ×4 (01:32→20:17)
[2017-06-23] MEDS: ALBUTEROL HALF STRENGTH 1.25 MG/3 ML VIAL.NEB NEB SCH ×4 (01:32→20:17)
[2017-06-23] MEDS: LEVOTHYROXINE SODIUM 25 MCG TABLET GT SCH (05:42)
[2017-06-23] MEDS: OMEPRAZOLE 20 MG CAPSULE.DR GT SCH (05:42)
[2017-06-23] MEDS: ZINC SULFATE 220 MG CAPSULE GT SCH (09:08)
[2017-06-23] MEDS: SENNOSIDES 8.6 MG TABLET GT SCH (09:08)
[2017-06-23] MEDS: CYANOCOBALAMIN 500 MCG TABLET GT SCH (09:08)
[2017-06-23] MEDS: ASCORBIC ACID 500 MG TABLET GT SCH (09:08)
[2017-06-23] MEDS: MECLIZINE HCL 12.5 MG TABLET GT SCH ×2 (09:08→21:32)
[2017-06-23] MEDS: POLYETHYLENE GLYCOL 3350 17 GM POWD.PACK GT SCH (09:08)
[2017-06-23] MEDS: FERROUS SULFATE - FOR SA ONLY 330 MG/7.5 ML UDC GT SCH (09:08)
[2017-06-23] MEDS: Z GUARD REMEDY 4 OZ OINT TP SCH ×2 (09:09→21:32)
[2017-06-23] MEDS: HYDROGEN PEROXIDE 480 ML BOTTLE TP SCH ×2 (09:09→21:32)
[2017-06-23] MEDS: FIBERSOURCE HN 1,000 ML BOTTLE GT PRN (17:53)
[2017-06-23] MEDS: DULOXETINE HCL 30 MG CAPSULE.DR GT SCH (21:32)
[2017-06-24 00:04] VITALS: BP 121/76
[2017-06-24] MEDS: IPRATROPIUM NEB FS 0.5 MG/2.5 ML AMPUL.NEB NEB SCH ×4 (00:54→19:35)
[2017-06-24] MEDS: ALBUTEROL HALF STRENGTH 1.25 MG/3 ML VIAL.NEB NEB SCH ×4 (00:54→19:35)
[2017-06-24] MEDS: LEVOTHYROXINE SODIUM 25 MCG TABLET GT SCH (05:23)
[2017-06-24] MEDS: OMEPRAZOLE 20 MG CAPSULE.DR GT SCH (05:23)
[2017-06-24 06:40] VITALS: BP 114/64
[2017-06-24 08:00] VITALS: BP 129/70
[2017-06-24] MEDS: MECLIZINE HCL 12.5 MG TABLET GT SCH ×2 (09:43→21:00)
[2017-06-24] MEDS: SENNOSIDES 8.6 MG TABLET GT SCH (09:43)
[2017-06-24] MEDS: POLYETHYLENE GLYCOL 3350 17 GM POWD.PACK GT SCH (09:43)
[2017-06-24] MEDS: CYANOCOBALAMIN 500 MCG TABLET GT SCH (09:43)
[2017-06-24] MEDS: FERROUS SULFATE - FOR SA ONLY 330 MG/7.5 ML UDC GT SCH (09:43)
[2017-06-24] MEDS: Z GUARD REMEDY 4 OZ OINT TP SCH ×2 (09:44→21:00)
[2017-06-24] MEDS: ZINC SULFATE 220 MG CAPSULE GT SCH (09:44)
[2017-06-24] MEDS: ASCORBIC ACID 500 MG TABLET GT SCH (09:44)
[2017-06-24] MEDS: HYDROGEN PEROXIDE 480 ML BOTTLE TP SCH ×2 (09:44→21:00)
[2017-06-24 12:00] VITALS: BP 112/48
[2017-06-24] MEDS: FIBERSOURCE HN 1,000 ML BOTTLE GT PRN (14:18)
[2017-06-24 18:13] VITALS: BP 130/73
[2017-06-24] MEDS: MAGNESIUM HYDROXIDE 30 ML UDC GT PRN (18:54)
[2017-06-24 20:06] VITALS: BP 131/55
[2017-06-24] MEDS: DULOXETINE HCL 30 MG CAPSULE.DR GT SCH (22:00)
[2017-06-25] VITALS: BP 119/54
[2017-06-25] MEDS: IPRATROPIUM NEB FS 0.5 MG/2.5 ML AMPUL.NEB NEB SCH ×4 (01:36→20:08)
[2017-06-25] MEDS: ALBUTEROL HALF STRENGTH 1.25 MG/3 ML VIAL.NEB NEB SCH ×4 (01:36→20:08)
[2017-06-25] MEDS: OMEPRAZOLE 20 MG CAPSULE.DR GT SCH (05:54)
[2017-06-25] MEDS: LEVOTHYROXINE SODIUM 25 MCG TABLET GT SCH (05:54)
[2017-06-25 06:00] VITALS: BP 125/60
[2017-06-25 08:00] VITALS: BP 144/53
[2017-06-25] MEDS: MECLIZINE HCL 12.5 MG TABLET GT SCH ×2 (09:00→20:29)
[2017-06-25] MEDS: POLYETHYLENE GLYCOL 3350 17 GM POWD.PACK GT SCH (09:00)
[2017-06-25] MEDS: SENNOSIDES 8.6 MG TABLET GT SCH (09:00)
[2017-06-25] MEDS: ASCORBIC ACID 500 MG TABLET GT SCH (09:00)
[2017-06-25] MEDS: FERROUS SULFATE - FOR SA ONLY 330 MG/7.5 ML UDC GT SCH (09:00)
[2017-06-25] MEDS: ZINC SULFATE 220 MG CAPSULE GT SCH (09:00)
[2017-06-25] MEDS: Z GUARD REMEDY 4 OZ OINT TP SCH ×2 (09:00→20:29)
[2017-06-25] MEDS: HYDROGEN PEROXIDE 480 ML BOTTLE TP SCH ×2 (09:00→20:29)
[2017-06-25] MEDS: CYANOCOBALAMIN 500 MCG TABLET GT SCH (09:00)
[2017-06-25] MEDS: FIBERSOURCE HN 1,000 ML BOTTLE GT PRN (12:22)
[2017-06-25 14:46] VITALS: BP 123/68
[2017-06-25 19:01] VITALS: BP 125/69
[2017-06-25 19:57] VITALS: BP 131/56
[2017-06-25] MEDS: DULOXETINE HCL 30 MG CAPSULE.DR GT SCH (21:32)
[2017-06-26 00:06] VITALS: BP 118/74
[2017-06-26] MEDS: IPRATROPIUM NEB FS 0.5 MG/2.5 ML AMPUL.NEB NEB SCH ×4 (01:15→19:30)
[2017-06-26] MEDS: ALBUTEROL HALF STRENGTH 1.25 MG/3 ML VIAL.NEB NEB SCH ×4 (01:15→19:30)
[2017-06-26] MEDS: OMEPRAZOLE 20 MG CAPSULE.DR GT SCH (05:15)
[2017-06-26] MEDS: LEVOTHYROXINE SODIUM 25 MCG TABLET GT SCH (05:15)
[2017-06-26] MEDS: FIBERSOURCE HN 1,000 ML BOTTLE GT PRN (05:19)
[2017-06-26 06:03] VITALS: BP 123/71
[2017-06-26 08:00] VITALS: BP 130/72
[2017-06-26] MEDS: CYANOCOBALAMIN 500 MCG TABLET GT SCH (09:57)
[2017-06-26] MEDS: ASCORBIC ACID 500 MG TABLET GT SCH (09:57)
[2017-06-26] MEDS: ZINC SULFATE 220 MG CAPSULE GT SCH (09:57)
[2017-06-26] MEDS: POLYETHYLENE GLYCOL 3350 17 GM POWD.PACK GT SCH (09:57)
[2017-06-26] MEDS: SENNOSIDES 8.6 MG TABLET GT SCH (09:57)
[2017-06-26] MEDS: MECLIZINE HCL 12.5 MG TABLET GT SCH ×2 (09:57→20:15)
[2017-06-26] MEDS: FERROUS SULFATE - FOR SA ONLY 330 MG/7.5 ML UDC GT SCH (09:57)
[2017-06-26] MEDS: HYDROGEN PEROXIDE 480 ML BOTTLE TP SCH ×2 (09:58→20:15)
[2017-06-26] MEDS: Z GUARD REMEDY 4 OZ OINT TP SCH ×2 (09:58→20:15)
[2017-06-26 13:05] VITALS: BP 126/75
[2017-06-26 18:54] VITALS: BP 121/78
[2017-06-26 19:57] VITALS: BP 146/63
[2017-06-26] MEDS: DULOXETINE HCL 30 MG CAPSULE.DR GT SCH (21:41)
[2017-06-27] MEDS: IPRATROPIUM NEB FS 0.5 MG/2.5 ML AMPUL.NEB NEB SCH ×4 (00:44→20:04)
[2017-06-27] MEDS: ALBUTEROL HALF STRENGTH 1.25 MG/3 ML VIAL.NEB NEB SCH ×4 (00:44→20:04)
[2017-06-27 00:47] VITALS: BP 125/69
[2017-06-27] MEDS: FIBERSOURCE HN 1,000 ML BOTTLE GT PRN ×2 (01:04→22:20)
[2017-06-27] MEDS: OMEPRAZOLE 20 MG CAPSULE.DR GT SCH (06:06)
[2017-06-27] MEDS: LEVOTHYROXINE SODIUM 25 MCG TABLET GT SCH (06:06)
[2017-06-27 06:10] VITALS: BP 119/72
[2017-06-27 08:06] VITALS: BP 105/63
[2017-06-27] MEDS: FERROUS SULFATE - FOR SA ONLY 330 MG/7.5 ML UDC GT SCH (09:00)
[2017-06-27] MEDS: MECLIZINE HCL 12.5 MG TABLET GT SCH ×2 (09:00→20:17)
[2017-06-27] MEDS: SENNOSIDES 8.6 MG TABLET GT SCH (09:00)
[2017-06-27] MEDS: ASCORBIC ACID 500 MG TABLET GT SCH (09:00)
[2017-06-27] MEDS: ZINC SULFATE 220 MG CAPSULE GT SCH (09:00)
[2017-06-27] MEDS: Z GUARD REMEDY 4 OZ OINT TP SCH ×2 (09:00→20:18)
[2017-06-27] MEDS: HYDROGEN PEROXIDE 480 ML BOTTLE TP SCH ×2 (09:00→20:17)
[2017-06-27] MEDS: POLYETHYLENE GLYCOL 3350 17 GM POWD.PACK GT SCH (09:00)
[2017-06-27] MEDS: CYANOCOBALAMIN 500 MCG TABLET GT SCH (09:00)
--- NOTE | 2017-06-27 10:57 | NUR ---
Informed dtr that broadcast designer Dr. Avendaño will be coming to see resident. Appreciated the information.
--- NOTE | 2017-06-27 11:12 | NUR ---
Informed dtr that hairdresser is coming tomorrow and she stated that she would like a haircut for the resident.
[2017-06-27 15:13] VITALS: BP 118/67
--- NOTE | 2017-06-27 17:12 | NUR ---
Pt was seen by Dr. Gonzalez today. He ordered Ketoconazole 2% cream to all toes daily for 30 days. Notified pt's daughter.
[2017-06-27 18:23] VITALS: BP 125/77
[2017-06-27 19:46] VITALS: BP 107/60
[2017-06-27] MEDS: DULOXETINE HCL 30 MG CAPSULE.DR GT SCH (21:38)
[2017-06-28 00:07] VITALS: BP 121/73
[2017-06-28] MEDS: IPRATROPIUM NEB FS 0.5 MG/2.5 ML AMPUL.NEB NEB SCH ×4 (01:51→19:55)
[2017-06-28] MEDS: ALBUTEROL HALF STRENGTH 1.25 MG/3 ML VIAL.NEB NEB SCH ×4 (01:51→19:55)
[2017-06-28] MEDS: OMEPRAZOLE 20 MG CAPSULE.DR GT SCH (05:14)
[2017-06-28] MEDS: LEVOTHYROXINE SODIUM 25 MCG TABLET GT SCH (05:14)
[2017-06-28 06:06] VITALS: BP 126/69
[2017-06-28 07:57] VITALS: BP 131/61
[2017-06-28] MEDS: CYANOCOBALAMIN 500 MCG TABLET GT SCH (09:24)
[2017-06-28] MEDS: HYDROGEN PEROXIDE 480 ML BOTTLE TP SCH ×2 (09:24→20:21)
[2017-06-28] MEDS: KETOCONAZOLE 2% CREAM 15 GM TUBE TP SCH (09:24)
[2017-06-28] MEDS: ASCORBIC ACID 500 MG TABLET GT SCH ×2 (09:24→20:21)
[2017-06-28] MEDS: SENNOSIDES 8.6 MG TABLET GT SCH ×2 (09:24→20:21)
[2017-06-28] MEDS: MECLIZINE HCL 12.5 MG TABLET GT SCH ×2 (09:24→20:20)
[2017-06-28] MEDS: ZINC SULFATE 220 MG CAPSULE GT SCH (09:24)
[2017-06-28] MEDS: FERROUS SULFATE - FOR SA ONLY 330 MG/7.5 ML UDC GT SCH (09:24)
[2017-06-28] MEDS: POLYETHYLENE GLYCOL 3350 17 GM POWD.PACK GT SCH (09:24)
[2017-06-28] MEDS: Z GUARD REMEDY 4 OZ OINT TP SCH ×2 (09:24→20:21)
--- NOTE | 2017-06-28 10:45 | NUR ---
Resident received haircut by linda Crum.
[2017-06-28 14:12] VITALS: BP 118/65
[2017-06-28] MEDS: FIBERSOURCE HN 1,000 ML BOTTLE GT PRN (16:27)
[2017-06-28 18:27] VITALS: BP 123/60
[2017-06-28 19:37] VITALS: BP 119/69
[2017-06-28] MEDS: DULOXETINE HCL 30 MG CAPSULE.DR GT SCH (21:40)
[2017-06-29 01:00] VITALS: BP 119/64
[2017-06-29] MEDS: ALBUTEROL HALF STRENGTH 1.25 MG/3 ML VIAL.NEB NEB SCH ×4 (02:00→20:01)
[2017-06-29] MEDS: IPRATROPIUM NEB FS 0.5 MG/2.5 ML AMPUL.NEB NEB SCH ×4 (02:00→20:01)
[2017-06-29] MEDS: OMEPRAZOLE 20 MG CAPSULE.DR GT SCH (05:04)
[2017-06-29] MEDS: LEVOTHYROXINE SODIUM 25 MCG TABLET GT SCH (05:04)
[2017-06-29 06:03] VITALS: BP 125/68
[2017-06-29 08:00] VITALS: BP 98/66
[2017-06-29] MEDS: HYDROGEN PEROXIDE 480 ML BOTTLE TP SCH ×2 (09:00→21:09)
[2017-06-29] MEDS: FERROUS SULFATE - FOR SA ONLY 330 MG/7.5 ML UDC GT SCH (09:00)
[2017-06-29] MEDS: POLYETHYLENE GLYCOL 3350 17 GM POWD.PACK GT SCH (09:00)
[2017-06-29] MEDS: KETOCONAZOLE 2% CREAM 15 GM TUBE TP SCH (09:00)
[2017-06-29] MEDS: MECLIZINE HCL 12.5 MG TABLET GT SCH ×2 (09:00→21:09)
[2017-06-29] MEDS: Z GUARD REMEDY 4 OZ OINT TP SCH ×2 (09:00→21:09)
[2017-06-29 12:00] VITALS: BP 124/80
[2017-06-29] MEDS: FIBERSOURCE HN 1,000 ML BOTTLE GT PRN (18:26)
[2017-06-29 19:16] VITALS: BP 138/82
[2017-06-29 19:36] VITALS: BP 108/70
[2017-06-29] MEDS: DULOXETINE HCL 30 MG CAPSULE.DR GT SCH (21:09)
[2017-06-29] MEDS: SIMETHICONE SUSP 40 MG/0.6 ML BOTTLE GT PRN (21:09)
[2017-06-29] MEDS: ASCORBIC ACID 500 MG TABLET GT SCH (21:09)
[2017-06-29] MEDS: ACETAMINOPHEN 650 MG/20 ML UDC- FOR SA PATIENTS ONLY GT PRN (21:09)
[2017-06-29] MEDS: SENNOSIDES 8.6 MG TABLET GT SCH (21:09)
[2017-06-30 00:51] VITALS: BP 122/80
[2017-06-30] MEDS: IPRATROPIUM NEB FS 0.5 MG/2.5 ML AMPUL.NEB NEB SCH ×4 (02:22→19:39)
[2017-06-30] MEDS: ALBUTEROL HALF STRENGTH 1.25 MG/3 ML VIAL.NEB NEB SCH ×4 (02:22→19:39)
[2017-06-30] MEDS: OMEPRAZOLE 20 MG CAPSULE.DR GT SCH (05:09)
[2017-06-30] MEDS: LEVOTHYROXINE SODIUM 25 MCG TABLET GT SCH (05:09)
[2017-06-30 06:09] VITALS: BP 125/67
[2017-06-30 07:38] VITALS: BP 145/75
[2017-06-30] MEDS: FERROUS SULFATE - FOR SA ONLY 330 MG/7.5 ML UDC GT SCH (08:30)
[2017-06-30] MEDS: POLYETHYLENE GLYCOL 3350 17 GM POWD.PACK GT SCH (08:30)
[2017-06-30] MEDS: MECLIZINE HCL 12.5 MG TABLET GT SCH ×2 (08:30→20:29)
[2017-06-30] MEDS: KETOCONAZOLE 2% CREAM 15 GM TUBE TP SCH (09:00)
[2017-06-30] MEDS: Z GUARD REMEDY 4 OZ OINT TP SCH ×2 (09:00→20:29)
[2017-06-30] MEDS: HYDROGEN PEROXIDE 480 ML BOTTLE TP SCH ×2 (09:00→20:29)
[2017-06-30] MEDS: FIBERSOURCE HN 1,000 ML BOTTLE GT PRN (11:24)
[2017-06-30 12:00] VITALS: BP 123/70
[2017-06-30 18:42] VITALS: BP 98/53
[2017-06-30] MEDS: MAGNESIUM HYDROXIDE 30 ML UDC GT PRN (18:44)
[2017-06-30 19:30] VITALS: BP 107/77
[2017-06-30] MEDS: SENNOSIDES 8.6 MG TABLET GT SCH (20:29)
[2017-06-30] MEDS: ASCORBIC ACID 500 MG TABLET GT SCH (20:29)
[2017-06-30] MEDS: SIMETHICONE SUSP 40 MG/0.6 ML BOTTLE GT PRN (20:30)
[2017-06-30] MEDS: DULOXETINE HCL 30 MG CAPSULE.DR GT SCH (21:21)
[2017-07-01 00:23] VITALS: BP 118/58
[2017-07-01] MEDS: IPRATROPIUM NEB FS 0.5 MG/2.5 ML AMPUL.NEB NEB SCH ×4 (01:55→20:11)
[2017-07-01] MEDS: ALBUTEROL HALF STRENGTH 1.25 MG/3 ML VIAL.NEB NEB SCH ×4 (01:55→20:11)
[2017-07-01] MEDS: FIBERSOURCE HN 1,000 ML BOTTLE GT PRN (05:22)
[2017-07-01] MEDS: OMEPRAZOLE 20 MG CAPSULE.DR GT SCH (05:22)
[2017-07-01] MEDS: LEVOTHYROXINE SODIUM 25 MCG TABLET GT SCH (05:22)
[2017-07-01 06:06] VITALS: BP 120/62
[2017-07-01 07:39] VITALS: BP 111/65
[2017-07-01] MEDS: FERROUS SULFATE - FOR SA ONLY 330 MG/7.5 ML UDC GT SCH (09:00)
[2017-07-01] MEDS: KETOCONAZOLE 2% CREAM 15 GM TUBE TP SCH (09:00)
[2017-07-01] MEDS: HYDROGEN PEROXIDE 480 ML BOTTLE TP SCH ×2 (09:00→21:00)
[2017-07-01] MEDS: MECLIZINE HCL 12.5 MG TABLET GT SCH ×2 (09:00→21:00)
[2017-07-01] MEDS: Z GUARD REMEDY 4 OZ OINT TP SCH ×2 (09:00→21:00)
[2017-07-01] MEDS: POLYETHYLENE GLYCOL 3350 17 GM POWD.PACK GT SCH (09:00)
[2017-07-01 12:00] VITALS: BP 113/68
[2017-07-01] MEDS ORDERED: Z GUARD REMEDY 2 OZ OINT TP PRN (16:30)
[2017-07-01 18:16] VITALS: BP 120/60
--- NOTE | 2017-07-01 18:24 | NUR ---
Noted with open skin in the L buttocks, obtain treatment order from Dr. John. Cheli, daughter notified, appreciated the call.
[2017-07-01 19:34] VITALS: BP 120/67
[2017-07-01] MEDS: Z GUARD REMEDY 2 OZ OINT TP SCH (21:00)
[2017-07-01] MEDS: SENNOSIDES 8.6 MG TABLET GT SCH (21:00)
[2017-07-01] MEDS: ASCORBIC ACID 500 MG TABLET GT SCH (21:00)
[2017-07-01] MEDS: DULOXETINE HCL 30 MG CAPSULE.DR GT SCH (22:00)
[2017-07-02] VITALS: BP 120/65
[2017-07-02] MEDS: IPRATROPIUM NEB FS 0.5 MG/2.5 ML AMPUL.NEB NEB SCH ×4 (02:26→19:29)
[2017-07-02] MEDS: ALBUTEROL HALF STRENGTH 1.25 MG/3 ML VIAL.NEB NEB SCH ×4 (02:26→19:29)
[2017-07-02] MEDS: LEVOTHYROXINE SODIUM 25 MCG TABLET GT SCH (05:32)
[2017-07-02] MEDS: OMEPRAZOLE 20 MG CAPSULE.DR GT SCH (05:32)
[2017-07-02 06:00] VITALS: BP 118/67
[2017-07-02 08:00] VITALS: BP 115/61
[2017-07-02] MEDS: POLYETHYLENE GLYCOL 3350 17 GM POWD.PACK GT SCH (09:12)
[2017-07-02] MEDS: MECLIZINE HCL 12.5 MG TABLET GT SCH ×2 (09:12→21:43)
[2017-07-02] MEDS: FERROUS SULFATE - FOR SA ONLY 330 MG/7.5 ML UDC GT SCH (09:12)
[2017-07-02] MEDS: KETOCONAZOLE 2% CREAM 15 GM TUBE TP SCH (09:13)
[2017-07-02] MEDS: HYDROGEN PEROXIDE 480 ML BOTTLE TP SCH ×2 (09:13→21:43)
[2017-07-02] MEDS: Z GUARD REMEDY 2 OZ OINT TP SCH ×2 (09:13→21:43)
[2017-07-02] MEDS: Z GUARD REMEDY 4 OZ OINT TP SCH ×2 (09:13→21:43)
[2017-07-02 12:41] VITALS: BP 123/70
[2017-07-02 18:24] VITALS: BP 118/68
[2017-07-02 19:46] VITALS: BP 111/58
[2017-07-02] MEDS: SENNOSIDES 8.6 MG TABLET GT SCH (21:43)
[2017-07-02] MEDS: ASCORBIC ACID 500 MG TABLET GT SCH (21:43)
[2017-07-02] MEDS: DULOXETINE HCL 30 MG CAPSULE.DR GT SCH (21:43)
[2017-07-02] MEDS: FIBERSOURCE HN 1,000 ML BOTTLE GT PRN (21:57)
[2017-07-03] VITALS: BP 125/59
[2017-07-03] MEDS: IPRATROPIUM NEB FS 0.5 MG/2.5 ML AMPUL.NEB NEB SCH ×4 (01:06→19:53)
[2017-07-03] MEDS: ALBUTEROL HALF STRENGTH 1.25 MG/3 ML VIAL.NEB NEB SCH ×4 (01:06→19:53)
[2017-07-03 06:00] VITALS: BP 119/62
[2017-07-03] MEDS: LEVOTHYROXINE SODIUM 25 MCG TABLET GT SCH (06:11)
[2017-07-03] MEDS: OMEPRAZOLE 20 MG CAPSULE.DR GT SCH (06:11)
[2017-07-03 08:05] VITALS: BP 116/66
[2017-07-03] MEDS: POLYETHYLENE GLYCOL 3350 17 GM POWD.PACK GT SCH (08:24)
[2017-07-03] MEDS: FERROUS SULFATE - FOR SA ONLY 330 MG/7.5 ML UDC GT SCH (08:24)
[2017-07-03] MEDS: MECLIZINE HCL 12.5 MG TABLET GT SCH ×2 (08:24→20:23)
--- NOTE | 2017-07-03 09:21 | NUR ---
RT PATIENT REC'D TRACHED ON [facility] VENT WITH SETTINGS SET PER MD ELENI NINA. VENT ALARMS CHECKED + AUDIBLE. CUFF PRESSURE CHECKED GAMBRELER HELPER. VENT PLUGGED INTO RED OUTLET. SUCTIONED WITH SMALL/MOD AMT PALE SEMITHICK SECRETIONS. B/S DIM COARSE. AMBU BAG + BACK UP TRACH AT HOB. CONT CURRENT PLAN OF RESP CARE. Addendum: 07/03/17 at 0921 by RUDDY ISSA RT Amended: Links added.
--- NOTE | 2017-07-03 11:34 | NUR ---
Received order from AJ Hankins to resume Reglan 5 mg GT TID for nausea and vomiting.
[2017-07-03 12:00] VITALS: BP 122/62
[2017-07-03] MEDS: METOCLOPRAMIDE HCL 10 MG/10 ML UDC GT SCH ×2 (12:38→17:15)
[2017-07-03] MEDS: Z GUARD REMEDY 4 OZ OINT TP SCH ×2 (13:00→20:24)
[2017-07-03] MEDS: Z GUARD REMEDY 2 OZ OINT TP SCH ×2 (13:00→20:24)
[2017-07-03] MEDS: KETOCONAZOLE 2% CREAM 15 GM TUBE TP SCH (13:00)
[2017-07-03] MEDS: HYDROGEN PEROXIDE 480 ML BOTTLE TP SCH ×2 (13:00→20:23)
[2017-07-03 18:00] VITALS: BP 124/64
[2017-07-03 19:54] VITALS: BP 122/70
[2017-07-03] MEDS: CYANOCOBALAMIN 500 MCG TABLET GT SCH (20:23)
[2017-07-03] MEDS: SENNOSIDES 8.6 MG TABLET GT SCH (20:23)
[2017-07-03] MEDS: ASCORBIC ACID 500 MG TABLET GT SCH (20:23)
[2017-07-03] MEDS: DULOXETINE HCL 30 MG CAPSULE.DR GT SCH (21:27)
[2017-07-04 00:31] VITALS: BP 130/68
[2017-07-04] MEDS: ALBUTEROL HALF STRENGTH 1.25 MG/3 ML VIAL.NEB NEB SCH ×4 (02:08→19:52)
[2017-07-04] MEDS: IPRATROPIUM NEB FS 0.5 MG/2.5 ML AMPUL.NEB NEB SCH ×4 (02:08→19:52)
[2017-07-04] MEDS: OMEPRAZOLE 20 MG CAPSULE.DR GT SCH (05:12)
[2017-07-04] MEDS: LEVOTHYROXINE SODIUM 25 MCG TABLET GT SCH (05:12)
[2017-07-04 06:19] VITALS: BP 124/70
[2017-07-04 07:42] VITALS: BP 94/56
[2017-07-04] MEDS: MECLIZINE HCL 12.5 MG TABLET GT SCH ×2 (08:20→20:09)
[2017-07-04] MEDS: METOCLOPRAMIDE HCL 10 MG/10 ML UDC GT SCH ×3 (08:20→17:37)
[2017-07-04] MEDS: POLYETHYLENE GLYCOL 3350 17 GM POWD.PACK GT SCH (08:20)
[2017-07-04] MEDS: FERROUS SULFATE - FOR SA ONLY 330 MG/7.5 ML UDC GT SCH (08:20)
[2017-07-04 12:00] VITALS: BP 127/72
[2017-07-04] MEDS: Z GUARD REMEDY 2 OZ OINT TP SCH ×2 (14:45→20:09)
[2017-07-04] MEDS: Z GUARD REMEDY 4 OZ OINT TP SCH ×2 (14:45→20:09)
[2017-07-04] MEDS: HYDROGEN PEROXIDE 480 ML BOTTLE TP SCH ×2 (14:45→20:09)
[2017-07-04] MEDS: KETOCONAZOLE 2% CREAM 15 GM TUBE TP SCH (14:45)
[2017-07-04 18:00] VITALS: BP 125/70
[2017-07-04] MEDS: SENNOSIDES 8.6 MG TABLET GT SCH (20:09)
[2017-07-04] MEDS: ASCORBIC ACID 500 MG TABLET GT SCH (20:09)
[2017-07-04] MEDS: CYANOCOBALAMIN 500 MCG TABLET GT SCH (20:09)
[2017-07-04 20:15] VITALS: BP 124/65
[2017-07-04] MEDS: DULOXETINE HCL 30 MG CAPSULE.DR GT SCH (21:22)
[2017-07-05 00:16] VITALS: BP 120/66
[2017-07-05] MEDS: ALBUTEROL HALF STRENGTH 1.25 MG/3 ML VIAL.NEB NEB SCH ×4 (01:30→20:03)
[2017-07-05] MEDS: IPRATROPIUM NEB FS 0.5 MG/2.5 ML AMPUL.NEB NEB SCH ×4 (01:30→20:03)
[2017-07-05] MEDS: OMEPRAZOLE 20 MG CAPSULE.DR GT SCH (05:06)
[2017-07-05] MEDS: LEVOTHYROXINE SODIUM 25 MCG TABLET GT SCH (05:06)
[2017-07-05 06:22] VITALS: BP 128/70
[2017-07-05 08:08] VITALS: BP 130/76
[2017-07-05] MEDS: METOCLOPRAMIDE HCL 10 MG/10 ML UDC GT SCH ×3 (08:41→17:25)
[2017-07-05] MEDS: FERROUS SULFATE - FOR SA ONLY 330 MG/7.5 ML UDC GT SCH (08:41)
[2017-07-05] MEDS: POLYETHYLENE GLYCOL 3350 17 GM POWD.PACK GT SCH (08:41)
[2017-07-05] MEDS: MECLIZINE HCL 12.5 MG TABLET GT SCH ×2 (08:41→20:20)
[2017-07-05] MEDS: Z GUARD REMEDY 4 OZ OINT TP SCH ×2 (08:42→20:21)
[2017-07-05] MEDS: HYDROGEN PEROXIDE 480 ML BOTTLE TP SCH ×2 (08:42→20:20)
[2017-07-05] MEDS: KETOCONAZOLE 2% CREAM 15 GM TUBE TP SCH (08:42)
[2017-07-05] MEDS: Z GUARD REMEDY 2 OZ OINT TP SCH ×2 (08:42→20:20)
[2017-07-05 15:13] VITALS: BP 130/76
[2017-07-05 18:28] VITALS: BP 122/80
[2017-07-05] MEDS: CYANOCOBALAMIN 500 MCG TABLET GT SCH (20:20)
[2017-07-05] MEDS: ASCORBIC ACID 500 MG TABLET GT SCH (20:20)
[2017-07-05] MEDS: SENNOSIDES 8.6 MG TABLET GT SCH (20:20)
[2017-07-05 20:27] VITALS: BP 101/66
[2017-07-05] MEDS: DULOXETINE HCL 30 MG CAPSULE.DR GT SCH (21:32)
[2017-07-06 00:30] VITALS: BP 120/60
[2017-07-06] MEDS: ALBUTEROL HALF STRENGTH 1.25 MG/3 ML VIAL.NEB NEB SCH ×4 (02:21→19:28)
[2017-07-06] MEDS: IPRATROPIUM NEB FS 0.5 MG/2.5 ML AMPUL.NEB NEB SCH ×4 (02:21→19:28)
[2017-07-06] MEDS: LEVOTHYROXINE SODIUM 25 MCG TABLET GT SCH (05:19)
[2017-07-06] MEDS: OMEPRAZOLE 20 MG CAPSULE.DR GT SCH (05:19)
[2017-07-06 06:14] VITALS: BP 129/58
[2017-07-06] MEDS: FIBERSOURCE HN 1,000 ML BOTTLE GT PRN (06:26)
[2017-07-06 07:43] VITALS: BP 124/70
[2017-07-06] MEDS: Z GUARD REMEDY 4 OZ OINT TP SCH ×2 (09:22→20:42)
[2017-07-06] MEDS: FERROUS SULFATE - FOR SA ONLY 330 MG/7.5 ML UDC GT SCH (09:22)
[2017-07-06] MEDS: MECLIZINE HCL 12.5 MG TABLET GT SCH ×2 (09:22→20:42)
[2017-07-06] MEDS: KETOCONAZOLE 2% CREAM 15 GM TUBE TP SCH (09:22)
[2017-07-06] MEDS: Z GUARD REMEDY 2 OZ OINT TP SCH ×2 (09:22→20:42)
[2017-07-06] MEDS: POLYETHYLENE GLYCOL 3350 17 GM POWD.PACK GT SCH (09:22)
[2017-07-06] MEDS: HYDROGEN PEROXIDE 480 ML BOTTLE TP SCH ×2 (09:22→20:42)
[2017-07-06] MEDS: METOCLOPRAMIDE HCL 10 MG/10 ML UDC GT SCH ×3 (09:22→16:27)
[2017-07-06 15:32] VITALS: BP 124/70
[2017-07-06 18:26] VITALS: BP 138/77
[2017-07-06 19:34] VITALS: BP 125/60
[2017-07-06] MEDS: CYANOCOBALAMIN 500 MCG TABLET GT SCH (20:42)
[2017-07-06] MEDS: SENNOSIDES 8.6 MG TABLET GT SCH (20:42)
[2017-07-06] MEDS: ZINC SULFATE 220 MG CAPSULE GT SCH (20:42)
[2017-07-06] MEDS: ASCORBIC ACID 500 MG TABLET GT SCH (20:42)
[2017-07-06] MEDS: DULOXETINE HCL 30 MG CAPSULE.DR GT SCH (21:20)
[2017-07-07 00:08] VITALS: BP 122/78
[2017-07-07] MEDS: FIBERSOURCE HN 1,000 ML BOTTLE GT PRN (00:09)
[2017-07-07] MEDS: IPRATROPIUM NEB FS 0.5 MG/2.5 ML AMPUL.NEB NEB SCH ×4 (02:22→19:30)
[2017-07-07] MEDS: ALBUTEROL HALF STRENGTH 1.25 MG/3 ML VIAL.NEB NEB SCH ×4 (02:22→19:30)
[2017-07-07] MEDS: LEVOTHYROXINE SODIUM 25 MCG TABLET GT SCH (05:07)
[2017-07-07] MEDS: OMEPRAZOLE 20 MG CAPSULE.DR GT SCH (05:07)
[2017-07-07] MEDS: MAGNESIUM HYDROXIDE 30 ML UDC GT PRN (05:07)
[2017-07-07] MEDS: SIMETHICONE SUSP 40 MG/0.6 ML BOTTLE GT PRN ×2 (05:07→21:01)
[2017-07-07 06:11] VITALS: BP 118/77
[2017-07-07 07:42] VITALS: BP 109/61
[2017-07-07] MEDS: Z GUARD REMEDY 2 OZ OINT TP SCH ×2 (09:00→21:01)
[2017-07-07] MEDS: Z GUARD REMEDY 4 OZ OINT TP SCH ×2 (09:00→21:01)
[2017-07-07] MEDS: HYDROGEN PEROXIDE 480 ML BOTTLE TP SCH ×2 (09:00→21:01)
[2017-07-07] MEDS: KETOCONAZOLE 2% CREAM 15 GM TUBE TP SCH (09:00)
[2017-07-07] MEDS: MECLIZINE HCL 12.5 MG TABLET GT SCH ×2 (09:19→21:01)
[2017-07-07] MEDS: METOCLOPRAMIDE HCL 10 MG/10 ML UDC GT SCH ×3 (09:19→17:08)
[2017-07-07] MEDS: FERROUS SULFATE - FOR SA ONLY 330 MG/7.5 ML UDC GT SCH (09:19)
[2017-07-07] MEDS: POLYETHYLENE GLYCOL 3350 17 GM POWD.PACK GT SCH (09:19)
--- NOTE | 2017-07-07 11:00 | NUR ---
Seen by Dr. Foreman, reviewed chart, no new order given.
[2017-07-07 13:59] VITALS: BP 109/61
--- NOTE | 2017-07-07 14:00 | NUR ---
INTERDISCIPLINARY PLAN OF CARE CONFERENCE was held today. Gera Bower attended via telephone conference. Dr John and the interdisciplinary team reviewed the current plan of care in detail, as well as treatments and medication. Resident received her glasses and per dtrs request, will be placed in her closet. No new orders were given.
[2017-07-07 18:17] VITALS: BP 121/80
[2017-07-07 19:33] VITALS: BP 120/64
[2017-07-07] MEDS ORDERED: CYANOCOBALAMIN 500 MCG TABLET ONE (19:53)
[2017-07-07] MEDS: ASCORBIC ACID 500 MG TABLET GT SCH (21:01)
[2017-07-07] MEDS: SENNOSIDES 8.6 MG TABLET GT SCH (21:01)
[2017-07-07] MEDS: CYANOCOBALAMIN 500 MCG TABLET GT SCH (21:01)
[2017-07-07] MEDS: ZINC SULFATE 220 MG CAPSULE GT SCH (21:01)
[2017-07-07] MEDS: DULOXETINE HCL 30 MG CAPSULE.DR GT SCH (21:01)
[2017-07-08 00:09] VITALS: BP 123/74
[2017-07-08] MEDS: IPRATROPIUM NEB FS 0.5 MG/2.5 ML AMPUL.NEB NEB SCH ×4 (01:40→20:01)
[2017-07-08] MEDS: ALBUTEROL HALF STRENGTH 1.25 MG/3 ML VIAL.NEB NEB SCH ×4 (01:40→20:01)
[2017-07-08] MEDS: OMEPRAZOLE 20 MG CAPSULE.DR GT SCH (05:09)
[2017-07-08] MEDS: LEVOTHYROXINE SODIUM 25 MCG TABLET GT SCH (05:09)
[2017-07-08 06:04] VITALS: BP 118/77
[2017-07-08 07:25] VITALS: BP 114/80
[2017-07-08] MEDS: FERROUS SULFATE - FOR SA ONLY 330 MG/7.5 ML UDC GT SCH (08:48)
[2017-07-08] MEDS: POLYETHYLENE GLYCOL 3350 17 GM POWD.PACK GT SCH (08:49)
[2017-07-08] MEDS: METOCLOPRAMIDE HCL 10 MG/10 ML UDC GT SCH ×3 (08:50→16:20)
[2017-07-08] MEDS: HYDROGEN PEROXIDE 480 ML BOTTLE TP SCH ×2 (08:50→20:38)
[2017-07-08] MEDS: Z GUARD REMEDY 4 OZ OINT TP SCH ×2 (08:51→20:38)
[2017-07-08] MEDS: Z GUARD REMEDY 2 OZ OINT TP SCH ×2 (08:51→20:38)
[2017-07-08] MEDS: MECLIZINE HCL 12.5 MG TABLET GT SCH ×2 (08:54→20:38)
[2017-07-08] MEDS: KETOCONAZOLE 2% CREAM 15 GM TUBE TP SCH (08:54)
[2017-07-08 12:00] VITALS: BP 114/80
[2017-07-08] MEDS: FIBERSOURCE HN 1,000 ML BOTTLE GT PRN (12:56)
[2017-07-08 18:00] VITALS: BP 118/74
[2017-07-08 19:45] VITALS: BP 145/72
[2017-07-08] MEDS: ASCORBIC ACID 500 MG TABLET GT SCH (20:38)
[2017-07-08] MEDS: CYANOCOBALAMIN 500 MCG TABLET GT SCH (20:38)
[2017-07-08] MEDS: SENNOSIDES 8.6 MG TABLET GT SCH (20:38)
[2017-07-08] MEDS: ZINC SULFATE 220 MG CAPSULE GT SCH (20:38)
[2017-07-08] MEDS: ACETAMINOPHEN 650 MG/20 ML UDC- FOR SA PATIENTS ONLY GT PRN (20:39)
[2017-07-08] MEDS: DULOXETINE HCL 30 MG CAPSULE.DR GT SCH (21:28)
[2017-07-09 00:11] VITALS: BP 124/77
[2017-07-09] MEDS: IPRATROPIUM NEB FS 0.5 MG/2.5 ML AMPUL.NEB NEB SCH ×4 (02:17→19:43)
[2017-07-09] MEDS: ALBUTEROL HALF STRENGTH 1.25 MG/3 ML VIAL.NEB NEB SCH ×4 (02:17→19:43)
[2017-07-09] MEDS: SIMETHICONE SUSP 40 MG/0.6 ML BOTTLE GT PRN (05:38)
[2017-07-09] MEDS: OMEPRAZOLE 20 MG CAPSULE.DR GT SCH (05:38)
[2017-07-09] MEDS: LEVOTHYROXINE SODIUM 25 MCG TABLET GT SCH (05:38)
[2017-07-09] MEDS: MAGNESIUM HYDROXIDE 30 ML UDC GT PRN (05:38)
[2017-07-09 06:14] VITALS: BP 118/72
[2017-07-09 07:25] VITALS: BP 122/88
[2017-07-09] MEDS: METOCLOPRAMIDE HCL 10 MG/10 ML UDC GT SCH ×3 (08:53→17:00)
[2017-07-09] MEDS: MECLIZINE HCL 12.5 MG TABLET GT SCH ×2 (08:53→21:00)
[2017-07-09] MEDS: FERROUS SULFATE - FOR SA ONLY 330 MG/7.5 ML UDC GT SCH (08:53)
[2017-07-09] MEDS: POLYETHYLENE GLYCOL 3350 17 GM POWD.PACK GT SCH (08:53)
[2017-07-09] MEDS: HYDROGEN PEROXIDE 480 ML BOTTLE TP SCH ×2 (08:54→21:00)
[2017-07-09] MEDS: Z GUARD REMEDY 2 OZ OINT TP SCH ×2 (08:54→21:00)
[2017-07-09] MEDS: KETOCONAZOLE 2% CREAM 15 GM TUBE TP SCH (08:54)
[2017-07-09] MEDS: Z GUARD REMEDY 4 OZ OINT TP SCH ×2 (09:00→21:00)
--- NOTE | 2017-07-09 09:22 | NUR ---
RT PATIENT REC'D TRACHED ON [facility] VENT WITH SETTINGS SET PER MD ELENI NINA. VENT ALARMS CHECKED + AUDIBLE. CUFF PRESSURE CHECKED CAMP RECREATION SPECIALIST. VENT PLUGGED INTO RED OUTLET. SUCTIONED WITH SMALL/MOD AMT PALE SEMITHICK SECRETIONS. B/S DIM COARSE. AMBU BAG + BACK UP TRACH AT HOB. CONT CURRENT PLAN OF RESP CARE. Addendum: 07/09/17 at 0922 by RUDDY ISSA RT Amended: Links added.
[2017-07-09 15:18] VITALS: BP 122/88
[2017-07-09 18:16] VITALS: BP 126/80
[2017-07-09 19:58] VITALS: BP 139/65
[2017-07-09] MEDS: SENNOSIDES 8.6 MG TABLET GT SCH (21:00)
[2017-07-09] MEDS: ASCORBIC ACID 500 MG TABLET GT SCH (21:00)
[2017-07-09] MEDS: ZINC SULFATE 220 MG CAPSULE GT SCH (21:00)
[2017-07-09] MEDS: CYANOCOBALAMIN 500 MCG TABLET GT SCH (21:00)
[2017-07-09] MEDS: DULOXETINE HCL 30 MG CAPSULE.DR GT SCH (22:00)
[2017-07-10] VITALS: BP 139/65
[2017-07-10] MEDS: ALBUTEROL HALF STRENGTH 1.25 MG/3 ML VIAL.NEB NEB SCH ×4 (01:24→19:30)
[2017-07-10] MEDS: IPRATROPIUM NEB FS 0.5 MG/2.5 ML AMPUL.NEB NEB SCH ×4 (01:24→19:30)
[2017-07-10] MEDS: FIBERSOURCE HN 1,000 ML BOTTLE GT PRN (04:02)
[2017-07-10] MEDS: OMEPRAZOLE 20 MG CAPSULE.DR GT SCH (05:38)
[2017-07-10] MEDS: LEVOTHYROXINE SODIUM 25 MCG TABLET GT SCH (05:38)
[2017-07-10 06:00] VITALS: BP 139/65
[2017-07-10 08:00] VITALS: BP 144/77
[2017-07-10] MEDS: FERROUS SULFATE - FOR SA ONLY 330 MG/7.5 ML UDC GT SCH (08:45)
[2017-07-10] MEDS: POLYETHYLENE GLYCOL 3350 17 GM POWD.PACK GT SCH (08:45)
[2017-07-10] MEDS: MECLIZINE HCL 12.5 MG TABLET GT SCH ×2 (08:45→21:27)
[2017-07-10] MEDS: METOCLOPRAMIDE HCL 10 MG/10 ML UDC GT SCH ×3 (08:50→17:00)
[2017-07-10] MEDS: Z GUARD REMEDY 2 OZ OINT TP SCH ×2 (08:52→21:26)
[2017-07-10] MEDS: HYDROGEN PEROXIDE 480 ML BOTTLE TP SCH ×2 (08:52→21:26)
[2017-07-10] MEDS: Z GUARD REMEDY 4 OZ OINT TP SCH ×2 (08:52→21:26)
[2017-07-10] MEDS: KETOCONAZOLE 2% CREAM 15 GM TUBE TP SCH (08:52)
[2017-07-10 19:05] VITALS: BP 130/70
[2017-07-10 19:52] VITALS: BP 129/69
[2017-07-10] MEDS: SENNOSIDES 8.6 MG TABLET GT SCH (21:26)
[2017-07-10] MEDS: ASCORBIC ACID 500 MG TABLET GT SCH (21:26)
[2017-07-10] MEDS: DULOXETINE HCL 30 MG CAPSULE.DR GT SCH (21:26)
[2017-07-10] MEDS: ZINC SULFATE 220 MG CAPSULE GT SCH (21:26)
[2017-07-10] MEDS: CYANOCOBALAMIN 500 MCG TABLET GT SCH (21:26)
[2017-07-11] MEDS: FIBERSOURCE HN 1,000 ML BOTTLE GT PRN ×2 (01:09→21:48)
[2017-07-11] MEDS: ALBUTEROL HALF STRENGTH 1.25 MG/3 ML VIAL.NEB NEB SCH ×4 (01:56→20:03)
[2017-07-11] MEDS: IPRATROPIUM NEB FS 0.5 MG/2.5 ML AMPUL.NEB NEB SCH ×4 (01:56→20:03)
[2017-07-11 03:51] VITALS: BP 126/64
[2017-07-11] MEDS: OMEPRAZOLE 20 MG CAPSULE.DR GT SCH (05:04)
[2017-07-11] MEDS: LEVOTHYROXINE SODIUM 25 MCG TABLET GT SCH (05:05)
[2017-07-11 06:31] VITALS: BP 130/64
[2017-07-11 08:00] VITALS: BP 135/63
[2017-07-11] MEDS: POLYETHYLENE GLYCOL 3350 17 GM POWD.PACK GT SCH (09:00)
[2017-07-11] MEDS: MECLIZINE HCL 12.5 MG TABLET GT SCH ×2 (09:00→21:05)
[2017-07-11] MEDS: FERROUS SULFATE - FOR SA ONLY 330 MG/7.5 ML UDC GT SCH (09:00)
[2017-07-11] MEDS: METOCLOPRAMIDE HCL 10 MG/10 ML UDC GT SCH ×3 (09:00→16:12)
[2017-07-11] MEDS: Z GUARD REMEDY 2 OZ OINT TP SCH ×2 (11:00→21:05)
[2017-07-11] MEDS: Z GUARD REMEDY 4 OZ OINT TP SCH ×2 (11:00→21:05)
[2017-07-11] MEDS: HYDROGEN PEROXIDE 480 ML BOTTLE TP SCH ×2 (11:00→21:05)
[2017-07-11] MEDS: KETOCONAZOLE 2% CREAM 15 GM TUBE TP SCH (11:00)
[2017-07-11 15:26] VITALS: BP 112/68
[2017-07-11 18:12] VITALS: BP 119/61
[2017-07-11 19:46] VITALS: BP 139/76
[2017-07-11] MEDS: ASCORBIC ACID 500 MG TABLET GT SCH (21:05)
[2017-07-11] MEDS: DULOXETINE HCL 30 MG CAPSULE.DR GT SCH (21:05)
[2017-07-11] MEDS: SENNOSIDES 8.6 MG TABLET GT SCH (21:05)
[2017-07-11] MEDS: CYANOCOBALAMIN 500 MCG TABLET GT SCH (21:05)
[2017-07-11] MEDS: ZINC SULFATE 220 MG CAPSULE GT SCH (21:05)
[2017-07-12 01:07] VITALS: BP 122/64
[2017-07-12] MEDS: ALBUTEROL HALF STRENGTH 1.25 MG/3 ML VIAL.NEB NEB SCH ×4 (01:37→19:24)
[2017-07-12] MEDS: IPRATROPIUM NEB FS 0.5 MG/2.5 ML AMPUL.NEB NEB SCH ×4 (01:37→19:24)
[2017-07-12] MEDS: LEVOTHYROXINE SODIUM 25 MCG TABLET GT SCH (05:04)
[2017-07-12] MEDS: OMEPRAZOLE 20 MG CAPSULE.DR GT SCH (05:04)
[2017-07-12 06:32] VITALS: BP 128/60
[2017-07-12 07:57] VITALS: BP 125/89
[2017-07-12] MEDS: Z GUARD REMEDY 2 OZ OINT TP SCH ×2 (09:00→20:48)
[2017-07-12] MEDS: KETOCONAZOLE 2% CREAM 15 GM TUBE TP SCH (09:00)
[2017-07-12] MEDS: METOCLOPRAMIDE HCL 10 MG/10 ML UDC GT SCH ×3 (09:00→17:54)
[2017-07-12] MEDS: Z GUARD REMEDY 4 OZ OINT TP SCH ×2 (09:00→20:48)
[2017-07-12] MEDS: HYDROGEN PEROXIDE 480 ML BOTTLE TP SCH ×2 (09:00→20:48)
[2017-07-12] MEDS: POLYETHYLENE GLYCOL 3350 17 GM POWD.PACK GT SCH (09:00)
[2017-07-12] MEDS: FERROUS SULFATE - FOR SA ONLY 330 MG/7.5 ML UDC GT SCH (09:00)
[2017-07-12] MEDS: MECLIZINE HCL 12.5 MG TABLET GT SCH ×2 (09:00→20:48)
[2017-07-12 15:17] VITALS: BP 125/89
[2017-07-12] MEDS: FIBERSOURCE HN 1,000 ML BOTTLE GT PRN (17:40)
[2017-07-12 18:16] VITALS: BP 123/68
[2017-07-12 20:15] VITALS: BP 130/76
[2017-07-12] MEDS: ASCORBIC ACID 500 MG TABLET GT SCH (20:48)
[2017-07-12] MEDS: CYANOCOBALAMIN 500 MCG TABLET GT SCH (20:48)
[2017-07-12] MEDS: SENNOSIDES 8.6 MG TABLET GT SCH (20:48)
[2017-07-12] MEDS: ZINC SULFATE 220 MG CAPSULE GT SCH (20:48)
[2017-07-12] MEDS: DULOXETINE HCL 30 MG CAPSULE.DR GT SCH (21:13)
[2017-07-13 00:38] VITALS: BP 120/60
[2017-07-13] MEDS: ALBUTEROL HALF STRENGTH 1.25 MG/3 ML VIAL.NEB NEB SCH ×4 (01:40→20:14)
[2017-07-13] MEDS: IPRATROPIUM NEB FS 0.5 MG/2.5 ML AMPUL.NEB NEB SCH ×4 (01:40→20:14)
[2017-07-13] MEDS: OMEPRAZOLE 20 MG CAPSULE.DR GT SCH (05:14)
[2017-07-13] MEDS: LEVOTHYROXINE SODIUM 25 MCG TABLET GT SCH (05:14)
[2017-07-13 06:42] VITALS: BP 127/62
[2017-07-13 07:30] VITALS: BP 115/87
[2017-07-13] MEDS: FERROUS SULFATE - FOR SA ONLY 330 MG/7.5 ML UDC GT SCH (09:12)
[2017-07-13] MEDS: METOCLOPRAMIDE HCL 10 MG/10 ML UDC GT SCH ×3 (09:12→16:41)
[2017-07-13] MEDS: HYDROGEN PEROXIDE 480 ML BOTTLE TP SCH ×2 (09:12→20:23)
[2017-07-13] MEDS: POLYETHYLENE GLYCOL 3350 17 GM POWD.PACK GT SCH (09:12)
[2017-07-13] MEDS: MECLIZINE HCL 12.5 MG TABLET GT SCH ×2 (09:12→20:23)
[2017-07-13] MEDS: Z GUARD REMEDY 4 OZ OINT TP SCH ×2 (09:12→20:23)
[2017-07-13] MEDS: Z GUARD REMEDY 2 OZ OINT TP SCH ×2 (09:12→20:23)
[2017-07-13] MEDS: KETOCONAZOLE 2% CREAM 15 GM TUBE TP SCH (09:12)
[2017-07-13 12:44] VITALS: BP 115/87
[2017-07-13 18:16] VITALS: BP_SYST 115; BP_SYST 127; BP_DIAS 80; BP_DIAS 87
[2017-07-13 19:45] VITALS: BP 129/81
[2017-07-13] MEDS: ZINC SULFATE 220 MG CAPSULE GT SCH (20:23)
[2017-07-13] MEDS: ASCORBIC ACID 500 MG TABLET GT SCH (20:23)
[2017-07-13] MEDS: CYANOCOBALAMIN 500 MCG TABLET GT SCH (20:23)
[2017-07-13] MEDS: SENNOSIDES 8.6 MG TABLET GT SCH (20:23)
[2017-07-13] MEDS: DULOXETINE HCL 30 MG CAPSULE.DR GT SCH (21:14)
[2017-07-14] VITALS: BP 115/68
[2017-07-14] MEDS: IPRATROPIUM NEB FS 0.5 MG/2.5 ML AMPUL.NEB NEB SCH ×4 (01:19→19:35)
[2017-07-14] MEDS: ALBUTEROL HALF STRENGTH 1.25 MG/3 ML VIAL.NEB NEB SCH ×4 (01:19→19:35)
[2017-07-14] MEDS: FIBERSOURCE HN 1,000 ML BOTTLE GT PRN (05:19)
[2017-07-14 06:00] VITALS: BP 122/72
[2017-07-14] MEDS: LEVOTHYROXINE SODIUM 25 MCG TABLET GT SCH (06:27)
[2017-07-14] MEDS: OMEPRAZOLE 20 MG CAPSULE.DR GT SCH (06:27)
[2017-07-14] MEDS: MAGNESIUM HYDROXIDE 30 ML UDC GT PRN (06:50)
[2017-07-14 07:47] VITALS: BP 113/78
[2017-07-14] MEDS: MECLIZINE HCL 12.5 MG TABLET GT SCH ×2 (08:33→21:29)
[2017-07-14] MEDS: KETOCONAZOLE 2% CREAM 15 GM TUBE TP SCH (08:33)
[2017-07-14] MEDS: POLYETHYLENE GLYCOL 3350 17 GM POWD.PACK GT SCH (08:33)
[2017-07-14] MEDS: HYDROGEN PEROXIDE 480 ML BOTTLE TP SCH ×2 (08:33→21:30)
[2017-07-14] MEDS: METOCLOPRAMIDE HCL 10 MG/10 ML UDC GT SCH ×3 (08:33→17:00)
[2017-07-14] MEDS: FERROUS SULFATE - FOR SA ONLY 330 MG/7.5 ML UDC GT SCH (08:33)
[2017-07-14] MEDS: Z GUARD REMEDY 4 OZ OINT TP SCH ×2 (09:00→21:30)
[2017-07-14] MEDS: Z GUARD REMEDY 2 OZ OINT TP SCH ×2 (09:00→21:30)
[2017-07-14 13:34] VITALS: BP 113/78
[2017-07-14 18:16] VITALS: BP 128/81
[2017-07-14 19:51] VITALS: BP 130/77
[2017-07-14] MEDS: CYANOCOBALAMIN 500 MCG TABLET GT SCH (21:29)
[2017-07-14] MEDS: ASCORBIC ACID 500 MG TABLET GT SCH (21:29)
[2017-07-14] MEDS: SENNOSIDES 8.6 MG TABLET GT SCH (21:29)
[2017-07-14] MEDS: DULOXETINE HCL 30 MG CAPSULE.DR GT SCH (21:30)
[2017-07-14] MEDS: ZINC SULFATE 220 MG CAPSULE GT SCH (21:30)
[2017-07-15] VITALS: BP 115/74
[2017-07-15] MEDS: FIBERSOURCE HN 1,000 ML BOTTLE GT PRN ×2 (02:07→17:46)
[2017-07-15] MEDS: IPRATROPIUM NEB FS 0.5 MG/2.5 ML AMPUL.NEB NEB SCH ×4 (02:14→20:15)
[2017-07-15] MEDS: ALBUTEROL HALF STRENGTH 1.25 MG/3 ML VIAL.NEB NEB SCH ×4 (02:14→20:15)
[2017-07-15] MEDS: OMEPRAZOLE 20 MG CAPSULE.DR GT SCH (05:10)
[2017-07-15] MEDS: LEVOTHYROXINE SODIUM 25 MCG TABLET GT SCH (05:10)
[2017-07-15 06:21] VITALS: BP 109/71
[2017-07-15 07:49] VITALS: BP 131/60
[2017-07-15] MEDS: MECLIZINE HCL 12.5 MG TABLET GT SCH ×2 (09:44→21:00)
[2017-07-15] MEDS: KETOCONAZOLE 2% CREAM 15 GM TUBE TP SCH (09:44)
[2017-07-15] MEDS: Z GUARD REMEDY 2 OZ OINT TP SCH (09:44)
[2017-07-15] MEDS: FERROUS SULFATE - FOR SA ONLY 330 MG/7.5 ML UDC GT SCH (09:44)
[2017-07-15] MEDS: POLYETHYLENE GLYCOL 3350 17 GM POWD.PACK GT SCH (09:44)
[2017-07-15] MEDS: METOCLOPRAMIDE HCL 10 MG/10 ML UDC GT SCH ×3 (09:44→17:23)
[2017-07-15] MEDS: Z GUARD REMEDY 4 OZ OINT TP SCH ×2 (09:44→21:00)
[2017-07-15] MEDS: HYDROGEN PEROXIDE 480 ML BOTTLE TP SCH ×2 (09:44→21:00)
[2017-07-15 12:00] VITALS: BP 100/50
[2017-07-15 18:12] VITALS: BP 103/67
[2017-07-15 19:38] VITALS: BP 130/67
[2017-07-15] MEDS: ASCORBIC ACID 500 MG TABLET GT SCH (21:00)
[2017-07-15] MEDS: SENNOSIDES 8.6 MG TABLET GT SCH (21:00)
[2017-07-15] MEDS: CYANOCOBALAMIN 500 MCG TABLET GT SCH (21:00)
[2017-07-15] MEDS: ZINC SULFATE 220 MG CAPSULE GT SCH (21:00)
[2017-07-15] MEDS: DULOXETINE HCL 30 MG CAPSULE.DR GT SCH (22:57)
[2017-07-16] VITALS: BP 125/74
[2017-07-16] MEDS: IPRATROPIUM NEB FS 0.5 MG/2.5 ML AMPUL.NEB NEB SCH ×4 (02:26→19:09)
[2017-07-16] MEDS: ALBUTEROL HALF STRENGTH 1.25 MG/3 ML VIAL.NEB NEB SCH ×4 (02:26→19:09)
[2017-07-16] MEDS: OMEPRAZOLE 20 MG CAPSULE.DR GT SCH (05:37)
[2017-07-16] MEDS: FIBERSOURCE HN 1,000 ML BOTTLE GT PRN (05:37)
[2017-07-16] MEDS: LEVOTHYROXINE SODIUM 25 MCG TABLET GT SCH (05:37)
[2017-07-16 06:00] VITALS: BP 120/64
[2017-07-16 07:33] VITALS: BP 128/61
[2017-07-16] MEDS: MECLIZINE HCL 12.5 MG TABLET GT SCH ×2 (08:22→21:00)
[2017-07-16] MEDS: FERROUS SULFATE - FOR SA ONLY 330 MG/7.5 ML UDC GT SCH (08:24)
[2017-07-16] MEDS: POLYETHYLENE GLYCOL 3350 17 GM POWD.PACK GT SCH (08:25)
[2017-07-16] MEDS: METOCLOPRAMIDE HCL 10 MG/10 ML UDC GT SCH ×3 (08:25→16:41)
--- NOTE | 2017-07-16 09:00 | NUR ---
Seen and examined by Dr. John, NNO given.
[2017-07-16] MEDS: Z GUARD REMEDY 4 OZ OINT TP SCH ×2 (11:00→21:00)
[2017-07-16 14:23] VITALS: BP 116/68
[2017-07-16] MEDS: KETOCONAZOLE 2% CREAM 15 GM TUBE TP SCH (15:00)
[2017-07-16] MEDS: HYDROGEN PEROXIDE 480 ML BOTTLE TP SCH ×2 (15:00→21:00)
[2017-07-16 19:10] VITALS: BP 129/61
[2017-07-16 19:43] VITALS: BP 125/66
[2017-07-16] MEDS: ASCORBIC ACID 500 MG TABLET GT SCH (21:00)
[2017-07-16] MEDS: CYANOCOBALAMIN 500 MCG TABLET GT SCH (21:00)
[2017-07-16] MEDS: ZINC SULFATE 220 MG CAPSULE GT SCH (21:00)
[2017-07-16] MEDS: SENNOSIDES 8.6 MG TABLET GT SCH (21:00)
[2017-07-16] MEDS: DULOXETINE HCL 30 MG CAPSULE.DR GT SCH (22:00)
[2017-07-17] VITALS: BP 123/72
[2017-07-17] MEDS: FIBERSOURCE HN 1,000 ML BOTTLE GT PRN (00:14)
[2017-07-17] MEDS: ALBUTEROL HALF STRENGTH 1.25 MG/3 ML VIAL.NEB NEB SCH ×4 (01:12→19:57)
[2017-07-17] MEDS: IPRATROPIUM NEB FS 0.5 MG/2.5 ML AMPUL.NEB NEB SCH ×4 (01:12→19:57)
[2017-07-17] MEDS: LEVOTHYROXINE SODIUM 25 MCG TABLET GT SCH (05:23)
[2017-07-17] MEDS: OMEPRAZOLE 20 MG CAPSULE.DR GT SCH (05:23)
[2017-07-17 06:00] VITALS: BP 127/74
[2017-07-17 07:48] VITALS: BP 130/66
[2017-07-17] MEDS: MECLIZINE HCL 12.5 MG TABLET GT SCH ×2 (08:55→21:49)
[2017-07-17] MEDS: POLYETHYLENE GLYCOL 3350 17 GM POWD.PACK GT SCH (08:55)
[2017-07-17] MEDS: METOCLOPRAMIDE HCL 10 MG/10 ML UDC GT SCH ×3 (08:55→17:00)
[2017-07-17] MEDS: FERROUS SULFATE - FOR SA ONLY 330 MG/7.5 ML UDC GT SCH (08:55)
[2017-07-17] MEDS: Z GUARD REMEDY 4 OZ OINT TP SCH ×2 (08:55→21:51)
[2017-07-17] MEDS: HYDROGEN PEROXIDE 480 ML BOTTLE TP SCH ×2 (08:55→21:51)
[2017-07-17] MEDS: KETOCONAZOLE 2% CREAM 15 GM TUBE TP SCH (08:58)
[2017-07-17 14:29] VITALS: BP 127/78
[2017-07-17 18:44] VITALS: BP 119/69
[2017-07-17 20:02] VITALS: BP 137/82
[2017-07-17] MEDS: SENNOSIDES 8.6 MG TABLET GT SCH (21:49)
[2017-07-17] MEDS: CYANOCOBALAMIN 500 MCG TABLET GT SCH (21:49)
[2017-07-17] MEDS: ZINC SULFATE 220 MG CAPSULE GT SCH (21:50)
[2017-07-17] MEDS: ASCORBIC ACID 500 MG TABLET GT SCH (21:50)
[2017-07-17] MEDS: DULOXETINE HCL 30 MG CAPSULE.DR GT SCH (21:52)
[2017-07-18] VITALS: BP 139/69
[2017-07-18] MEDS: IPRATROPIUM NEB FS 0.5 MG/2.5 ML AMPUL.NEB NEB SCH ×4 (02:06→19:52)
[2017-07-18] MEDS: ALBUTEROL HALF STRENGTH 1.25 MG/3 ML VIAL.NEB NEB SCH ×4 (02:06→19:52)
[2017-07-18] MEDS: LEVOTHYROXINE SODIUM 25 MCG TABLET GT SCH (05:32)
[2017-07-18] MEDS: OMEPRAZOLE 20 MG CAPSULE.DR GT SCH (05:32)
[2017-07-18 06:00] VITALS: BP 135/71
[2017-07-18 07:49] VITALS: BP 127/90
[2017-07-18] MEDS: MECLIZINE HCL 12.5 MG TABLET GT SCH ×2 (09:18→21:00)
[2017-07-18] MEDS: FERROUS SULFATE - FOR SA ONLY 330 MG/7.5 ML UDC GT SCH (09:19)
[2017-07-18] MEDS: METOCLOPRAMIDE HCL 10 MG/10 ML UDC GT SCH ×3 (09:20→17:12)
[2017-07-18] MEDS: POLYETHYLENE GLYCOL 3350 17 GM POWD.PACK GT SCH (09:20)
[2017-07-18] MEDS: Z GUARD REMEDY 4 OZ OINT TP SCH ×2 (10:00→21:00)
[2017-07-18 13:15] VITALS: BP 118/60
[2017-07-18] MEDS: FIBERSOURCE HN 1,000 ML BOTTLE GT PRN (13:21)
[2017-07-18] MEDS: HYDROGEN PEROXIDE 480 ML BOTTLE TP SCH ×2 (14:00→21:00)
[2017-07-18] MEDS: KETOCONAZOLE 2% CREAM 15 GM TUBE TP SCH (17:00)
[2017-07-18 18:59] VITALS: BP 140/64
--- NOTE | 2017-07-18 19:33 | NUR ---
RN OPENING NOTES received report from kayla rn. pt is asleep. no s/s of acute distress or sob noted. equal chest rise and fall. gt feeding fibersource @65ml/hrx20h. gtube flushing well. safety measures in place. will continue to monitor pt throughout the night for safety.
[2017-07-18 20:00] VITALS: BP 115/67
[2017-07-18] MEDS: ZINC SULFATE 220 MG CAPSULE GT SCH (21:00)
[2017-07-18] MEDS: ASCORBIC ACID 500 MG TABLET GT SCH (21:00)
[2017-07-18] MEDS: SENNOSIDES 8.6 MG TABLET GT SCH (21:00)
[2017-07-18] MEDS: CYANOCOBALAMIN 500 MCG TABLET GT SCH (21:00)
[2017-07-18] MEDS: DULOXETINE HCL 30 MG CAPSULE.DR GT SCH (22:00)
[2017-07-19] VITALS: BP 118/68
[2017-07-19] MEDS: IPRATROPIUM NEB FS 0.5 MG/2.5 ML AMPUL.NEB NEB SCH ×4 (01:42→19:54)
[2017-07-19] MEDS: ALBUTEROL HALF STRENGTH 1.25 MG/3 ML VIAL.NEB NEB SCH ×4 (01:42→19:54)
[2017-07-19] MEDS: OMEPRAZOLE 20 MG CAPSULE.DR GT SCH (05:27)
[2017-07-19] MEDS: LEVOTHYROXINE SODIUM 25 MCG TABLET GT SCH (05:27)
[2017-07-19 06:00] VITALS: BP 116/62
[2017-07-19] MEDS: FIBERSOURCE HN 1,000 ML BOTTLE GT PRN ×2 (06:46→10:26)
[2017-07-19 08:02] VITALS: BP 121/71
[2017-07-19] MEDS: METOCLOPRAMIDE HCL 10 MG/10 ML UDC GT SCH ×3 (08:25→17:02)
[2017-07-19] MEDS: POLYETHYLENE GLYCOL 3350 17 GM POWD.PACK GT SCH (08:25)
[2017-07-19] MEDS: FERROUS SULFATE - FOR SA ONLY 330 MG/7.5 ML UDC GT SCH (08:25)
[2017-07-19] MEDS: HYDROGEN PEROXIDE 480 ML BOTTLE TP SCH ×2 (08:26→21:12)
[2017-07-19] MEDS: Z GUARD REMEDY 4 OZ OINT TP SCH ×2 (08:26→21:12)
[2017-07-19] MEDS: KETOCONAZOLE 2% CREAM 15 GM TUBE TP SCH (08:28)
[2017-07-19] MEDS: MECLIZINE HCL 12.5 MG TABLET GT SCH ×2 (08:28→21:12)
[2017-07-19 12:47] VITALS: BP 121/71
[2017-07-19 18:00] VITALS: BP 121/71
[2017-07-19 19:16] VITALS: BP 117/68
[2017-07-19] MEDS: ASCORBIC ACID 500 MG TABLET GT SCH (21:12)
[2017-07-19] MEDS: ZINC SULFATE 220 MG CAPSULE GT SCH (21:12)
[2017-07-19] MEDS: MAGNESIUM HYDROXIDE 30 ML UDC GT PRN (21:12)
[2017-07-19] MEDS: SIMETHICONE SUSP 40 MG/0.6 ML BOTTLE GT PRN (21:12)
[2017-07-19] MEDS: CYANOCOBALAMIN 500 MCG TABLET GT SCH (21:12)
[2017-07-19] MEDS: SENNOSIDES 8.6 MG TABLET GT SCH (21:12)
[2017-07-19] MEDS: DULOXETINE HCL 30 MG CAPSULE.DR GT SCH (21:12)
[2017-07-20 00:12] VITALS: BP 118/70
[2017-07-20] MEDS: ALBUTEROL HALF STRENGTH 1.25 MG/3 ML VIAL.NEB NEB SCH ×4 (01:24→19:44)
[2017-07-20] MEDS: IPRATROPIUM NEB FS 0.5 MG/2.5 ML AMPUL.NEB NEB SCH ×4 (01:24→19:44)
[2017-07-20] MEDS: LEVOTHYROXINE SODIUM 25 MCG TABLET GT SCH (05:27)
[2017-07-20] MEDS: OMEPRAZOLE 20 MG CAPSULE.DR GT SCH (05:27)
[2017-07-20] MEDS: FIBERSOURCE HN 1,000 ML BOTTLE GT PRN ×2 (05:28→22:03)
[2017-07-20 06:20] VITALS: BP 119/75
[2017-07-20 07:37] VITALS: BP 135/89
[2017-07-20] MEDS: POLYETHYLENE GLYCOL 3350 17 GM POWD.PACK GT SCH (08:49)
[2017-07-20] MEDS: Z GUARD REMEDY 4 OZ OINT TP SCH ×2 (08:49→21:53)
[2017-07-20] MEDS: KETOCONAZOLE 2% CREAM 15 GM TUBE TP SCH (08:49)
[2017-07-20] MEDS: METOCLOPRAMIDE HCL 10 MG/10 ML UDC GT SCH ×3 (08:49→16:26)
[2017-07-20] MEDS: HYDROGEN PEROXIDE 480 ML BOTTLE TP SCH ×2 (08:49→21:53)
[2017-07-20] MEDS: FERROUS SULFATE - FOR SA ONLY 330 MG/7.5 ML UDC GT SCH (08:49)
[2017-07-20] MEDS: MECLIZINE HCL 12.5 MG TABLET GT SCH ×2 (08:49→20:33)
[2017-07-20 12:00] VITALS: BP 137/62
[2017-07-20 18:00] VITALS: BP 135/80
[2017-07-20] MEDS: SENNOSIDES 8.6 MG TABLET GT SCH (20:33)
[2017-07-20] MEDS: CYANOCOBALAMIN 500 MCG TABLET GT SCH (20:33)
[2017-07-20] MEDS: ZINC SULFATE 220 MG CAPSULE GT SCH (20:33)
[2017-07-20] MEDS: ASCORBIC ACID 500 MG TABLET GT SCH (20:33)
[2017-07-20] MEDS: DULOXETINE HCL 30 MG CAPSULE.DR GT SCH (21:53)
[2017-07-21 00:09] VITALS: BP 127/67
[2017-07-21] MEDS: ALBUTEROL HALF STRENGTH 1.25 MG/3 ML VIAL.NEB NEB SCH ×4 (00:54→19:31)
[2017-07-21] MEDS: IPRATROPIUM NEB FS 0.5 MG/2.5 ML AMPUL.NEB NEB SCH ×4 (00:54→19:31)
[2017-07-21] MEDS: LEVOTHYROXINE SODIUM 25 MCG TABLET GT SCH (05:38)
[2017-07-21] MEDS: OMEPRAZOLE 20 MG CAPSULE.DR GT SCH (05:38)
[2017-07-21 06:22] VITALS: BP 118/60
[2017-07-21 07:24] VITALS: BP 101/70
[2017-07-21] MEDS: FERROUS SULFATE - FOR SA ONLY 330 MG/7.5 ML UDC GT SCH (09:14)
[2017-07-21] MEDS: MECLIZINE HCL 12.5 MG TABLET GT SCH ×2 (09:14→21:33)
[2017-07-21] MEDS: METOCLOPRAMIDE HCL 10 MG/10 ML UDC GT SCH ×3 (09:15→17:57)
[2017-07-21] MEDS: POLYETHYLENE GLYCOL 3350 17 GM POWD.PACK GT SCH (09:15)
[2017-07-21] MEDS: Z GUARD REMEDY 4 OZ OINT TP SCH ×2 (09:16→21:34)
[2017-07-21] MEDS: KETOCONAZOLE 2% CREAM 15 GM TUBE TP SCH (09:16)
[2017-07-21] MEDS: HYDROGEN PEROXIDE 480 ML BOTTLE TP SCH ×2 (09:16→21:33)
[2017-07-21 12:22] VITALS: BP 12/60
[2017-07-21] MEDS: CLONIDINE HCL 0.1 MG TABLET GT PRN ×2 (14:00→18:13)
[2017-07-21] MEDS: FIBERSOURCE HN 1,000 ML BOTTLE GT PRN (17:58)
[2017-07-21 18:53] VITALS: BP 110/60
[2017-07-21 19:26] VITALS: BP 123/67
[2017-07-21] MEDS: ASCORBIC ACID 500 MG TABLET GT SCH (21:33)
[2017-07-21] MEDS: SENNOSIDES 8.6 MG TABLET GT SCH (21:33)
[2017-07-21] MEDS: ZINC SULFATE 220 MG CAPSULE GT SCH (21:33)
[2017-07-21] MEDS: CYANOCOBALAMIN 500 MCG TABLET GT SCH (21:33)
[2017-07-21] MEDS: DULOXETINE HCL 30 MG CAPSULE.DR GT SCH (21:34)
[2017-07-22 00:30] VITALS: BP 112/57
[2017-07-22] MEDS: ALBUTEROL HALF STRENGTH 1.25 MG/3 ML VIAL.NEB NEB SCH ×4 (01:29→19:36)
[2017-07-22] MEDS: IPRATROPIUM NEB FS 0.5 MG/2.5 ML AMPUL.NEB NEB SCH ×4 (01:29→19:36)
[2017-07-22] MEDS: LEVOTHYROXINE SODIUM 25 MCG TABLET GT SCH (05:50)
[2017-07-22] MEDS: OMEPRAZOLE 20 MG CAPSULE.DR GT SCH (05:50)
[2017-07-22 06:31] VITALS: BP 121/73
[2017-07-22 07:28] VITALS: BP 121/74
[2017-07-22] MEDS: KETOCONAZOLE 2% CREAM 15 GM TUBE TP SCH (09:58)
[2017-07-22] MEDS: MECLIZINE HCL 12.5 MG TABLET GT SCH ×2 (09:58→21:32)
[2017-07-22] MEDS: HYDROGEN PEROXIDE 480 ML BOTTLE TP SCH ×2 (09:58→21:32)
[2017-07-22] MEDS: METOCLOPRAMIDE HCL 10 MG/10 ML UDC GT SCH ×3 (09:58→16:06)
[2017-07-22] MEDS: FERROUS SULFATE - FOR SA ONLY 330 MG/7.5 ML UDC GT SCH (09:58)
[2017-07-22] MEDS: Z GUARD REMEDY 4 OZ OINT TP SCH ×2 (09:58→21:32)
[2017-07-22] MEDS: POLYETHYLENE GLYCOL 3350 17 GM POWD.PACK GT SCH (09:58)
[2017-07-22] MEDS: FIBERSOURCE HN 1,000 ML BOTTLE GT PRN (11:00)
[2017-07-22] MEDS: CLONIDINE HCL 0.1 MG TABLET GT PRN ×2 (12:32→16:07)
[2017-07-22 14:21] VITALS: BP 139/67
[2017-07-22 17:00] VITALS: BP 113/62
[2017-07-22 19:37] VITALS: BP 106/72
[2017-07-22] MEDS: ASCORBIC ACID 500 MG TABLET GT SCH (21:32)
[2017-07-22] MEDS: ZINC SULFATE 220 MG CAPSULE GT SCH (21:32)
[2017-07-22] MEDS: CYANOCOBALAMIN 500 MCG TABLET GT SCH (21:32)
[2017-07-22] MEDS: DULOXETINE HCL 30 MG CAPSULE.DR GT SCH (21:32)
[2017-07-22] MEDS: SENNOSIDES 8.6 MG TABLET GT SCH (21:32)
[2017-07-23 00:26] VITALS: BP 107/68
[2017-07-23] MEDS: ALBUTEROL HALF STRENGTH 1.25 MG/3 ML VIAL.NEB NEB SCH ×4 (01:00→19:07)
[2017-07-23] MEDS: IPRATROPIUM NEB FS 0.5 MG/2.5 ML AMPUL.NEB NEB SCH ×4 (01:00→19:07)
[2017-07-23] MEDS: OMEPRAZOLE 20 MG CAPSULE.DR GT SCH (05:35)
[2017-07-23] MEDS: LEVOTHYROXINE SODIUM 25 MCG TABLET GT SCH (05:35)
[2017-07-23 06:32] VITALS: BP 111/70
[2017-07-23] MEDS: FIBERSOURCE HN 1,000 ML BOTTLE GT PRN ×2 (07:09→22:37)
[2017-07-23 07:44] VITALS: BP 106/54
[2017-07-23] MEDS: Z GUARD REMEDY 4 OZ OINT TP SCH ×2 (09:00→20:30)
[2017-07-23] MEDS: MECLIZINE HCL 12.5 MG TABLET GT SCH ×2 (09:00→20:29)
[2017-07-23] MEDS: POLYETHYLENE GLYCOL 3350 17 GM POWD.PACK GT SCH (09:00)
[2017-07-23] MEDS: KETOCONAZOLE 2% CREAM 15 GM TUBE TP SCH (09:00)
[2017-07-23] MEDS: HYDROGEN PEROXIDE 480 ML BOTTLE TP SCH ×2 (09:00→20:30)
[2017-07-23] MEDS: FERROUS SULFATE - FOR SA ONLY 330 MG/7.5 ML UDC GT SCH (09:00)
[2017-07-23] MEDS: METOCLOPRAMIDE HCL 10 MG/10 ML UDC GT SCH ×3 (09:00→17:17)
[2017-07-23 13:51] VITALS: BP 113/62
[2017-07-23 18:43] VITALS: BP 122/71
[2017-07-23 19:34] VITALS: BP 119/85
[2017-07-23] MEDS: SENNOSIDES 8.6 MG TABLET GT SCH (20:29)
[2017-07-23] MEDS: CYANOCOBALAMIN 500 MCG TABLET GT SCH (20:29)
[2017-07-23] MEDS: ASCORBIC ACID 500 MG TABLET GT SCH (20:29)
[2017-07-23] MEDS: ZINC SULFATE 220 MG CAPSULE GT SCH (20:30)
[2017-07-23] MEDS: DULOXETINE HCL 30 MG CAPSULE.DR GT SCH (21:47)
[2017-07-24 00:56] VITALS: BP 118/68
[2017-07-24] MEDS: IPRATROPIUM NEB FS 0.5 MG/2.5 ML AMPUL.NEB NEB SCH ×4 (01:45→19:10)
[2017-07-24] MEDS: ALBUTEROL HALF STRENGTH 1.25 MG/3 ML VIAL.NEB NEB SCH ×4 (01:45→19:10)
[2017-07-24] MEDS: OMEPRAZOLE 20 MG CAPSULE.DR GT SCH (05:28)
[2017-07-24] MEDS: LEVOTHYROXINE SODIUM 25 MCG TABLET GT SCH (05:28)
[2017-07-24 06:10] VITALS: BP 115/70
[2017-07-24 07:36] VITALS: BP 103/75
--- NOTE | 2017-07-24 08:15 | NUR ---
Spoke to the resident's daughter Cheli. Informed her that there is an IDT meeting this Friday July 28, 2017 from 12:30pm to 1:30pm. She stated she would like a phone call during this time. SW will call her during the meeting.
[2017-07-24] MEDS: MECLIZINE HCL 12.5 MG TABLET GT SCH ×2 (09:00→20:37)
[2017-07-24] MEDS: Z GUARD REMEDY 4 OZ OINT TP SCH ×2 (09:00→20:38)
[2017-07-24] MEDS: METOCLOPRAMIDE HCL 10 MG/10 ML UDC GT SCH ×3 (09:00→17:00)
[2017-07-24] MEDS: KETOCONAZOLE 2% CREAM 15 GM TUBE TP SCH (09:00)
[2017-07-24] MEDS: FERROUS SULFATE - FOR SA ONLY 330 MG/7.5 ML UDC GT SCH (09:00)
[2017-07-24] MEDS: HYDROGEN PEROXIDE 480 ML BOTTLE TP SCH ×2 (09:00→20:38)
[2017-07-24] MEDS: POLYETHYLENE GLYCOL 3350 17 GM POWD.PACK GT SCH (09:00)
[2017-07-24 16:05] VITALS: BP 116/71
[2017-07-24 18:11] VITALS: BP 116/71
[2017-07-24] MEDS: FIBERSOURCE HN 1,000 ML BOTTLE GT PRN (18:14)
[2017-07-24 20:08] VITALS: BP 129/66
[2017-07-24] MEDS: SENNOSIDES 8.6 MG TABLET GT SCH (20:37)
[2017-07-24] MEDS: CYANOCOBALAMIN 500 MCG TABLET GT SCH (20:37)
[2017-07-24] MEDS: ASCORBIC ACID 500 MG TABLET GT SCH (20:37)
[2017-07-24] MEDS: ZINC SULFATE 220 MG CAPSULE GT SCH (20:38)
[2017-07-24] MEDS: DULOXETINE HCL 30 MG CAPSULE.DR GT SCH (22:21)
[2017-07-25 00:30] VITALS: BP 112/75
[2017-07-25] MEDS: IPRATROPIUM NEB FS 0.5 MG/2.5 ML AMPUL.NEB NEB SCH ×4 (00:56→19:53)
[2017-07-25] MEDS: ALBUTEROL HALF STRENGTH 1.25 MG/3 ML VIAL.NEB NEB SCH ×4 (00:56→19:53)
[2017-07-25] MEDS: OMEPRAZOLE 20 MG CAPSULE.DR GT SCH (05:13)
[2017-07-25] MEDS: LEVOTHYROXINE SODIUM 25 MCG TABLET GT SCH (05:13)
[2017-07-25 06:02] VITALS: BP 119/73
--- NOTE | 2017-07-25 07:52 | NUR ---
Pt received on mechanical ventilator. Pt trach is secure. Vent is plugged into a red outlet, alarms are set and audible, and BVM is at bedside. Addendum: 07/25/17 at 0753 by MAI PALOMO RT Amended: Links added.
[2017-07-25 08:00] VITALS: BP 112/53
[2017-07-25] MEDS: MECLIZINE HCL 12.5 MG TABLET GT SCH ×2 (09:42→20:17)
[2017-07-25] MEDS: METOCLOPRAMIDE HCL 10 MG/10 ML UDC GT SCH ×3 (09:42→17:49)
[2017-07-25] MEDS: FERROUS SULFATE - FOR SA ONLY 330 MG/7.5 ML UDC GT SCH (09:42)
[2017-07-25] MEDS: HYDROGEN PEROXIDE 480 ML BOTTLE TP SCH ×2 (09:42→20:20)
[2017-07-25] MEDS: POLYETHYLENE GLYCOL 3350 17 GM POWD.PACK GT SCH (09:42)
[2017-07-25] MEDS: Z GUARD REMEDY 4 OZ OINT TP SCH ×2 (09:43→20:20)
[2017-07-25] MEDS: KETOCONAZOLE 2% CREAM 15 GM TUBE TP SCH (09:43)
--- NOTE | 2017-07-25 10:40 | NUR ---
RT PT IS AWAKE AND ALERT ON THE VENT WITH NOTED SETTINGS. MONTHLY TRACH CHANGE DONE WITH NEW SHILEY 6 CUFFED TRACH. TRACH CHANGE DONE WITH NO COMPLICATIONS. EQUAL BILATERAL BREATHE SOUNDS AND CHEST RISE. CAR SHAGGER CUFF PRESSURE NOTED. NO SIGNS OF RESIPATORY DISRESS NOTED AT THIS TIME, WILL CONTINUE TO MONITOR. Addendum: 07/25/17 at 1111 by MILKA MARQUES RT Amended: Links added.
[2017-07-25 13:00] VITALS: BP 118/71
[2017-07-25] MEDS: FIBERSOURCE HN 1,000 ML BOTTLE GT PRN (15:05)
[2017-07-25 18:13] VITALS: BP 130/70
[2017-07-25 19:50] VITALS: BP 117/71
[2017-07-25] MEDS: SENNOSIDES 8.6 MG TABLET GT SCH (20:17)
[2017-07-25] MEDS: CYANOCOBALAMIN 500 MCG TABLET GT SCH (20:17)
[2017-07-25] MEDS: ASCORBIC ACID 500 MG TABLET GT SCH (20:18)
[2017-07-25] MEDS: ZINC SULFATE 220 MG CAPSULE GT SCH (20:20)
[2017-07-25] MEDS: DULOXETINE HCL 30 MG CAPSULE.DR GT SCH (21:41)
[2017-07-26 00:04] VITALS: BP 123/74
[2017-07-26] MEDS: ALBUTEROL HALF STRENGTH 1.25 MG/3 ML VIAL.NEB NEB SCH ×4 (01:55→19:41)
[2017-07-26] MEDS: IPRATROPIUM NEB FS 0.5 MG/2.5 ML AMPUL.NEB NEB SCH ×4 (01:55→19:41)
[2017-07-26] MEDS: OMEPRAZOLE 20 MG CAPSULE.DR GT SCH (05:42)
[2017-07-26] MEDS: LEVOTHYROXINE SODIUM 25 MCG TABLET GT SCH (05:42)
[2017-07-26] MEDS: FIBERSOURCE HN 1,000 ML BOTTLE GT PRN ×2 (05:58→23:48)
[2017-07-26 06:09] VITALS: BP 120/78
[2017-07-26 08:11] VITALS: BP 116/69
[2017-07-26] MEDS: KETOCONAZOLE 2% CREAM 15 GM TUBE TP SCH (09:07)
[2017-07-26] MEDS: FERROUS SULFATE - FOR SA ONLY 330 MG/7.5 ML UDC GT SCH (09:07)
[2017-07-26] MEDS: METOCLOPRAMIDE HCL 10 MG/10 ML UDC GT SCH ×3 (09:07→17:36)
[2017-07-26] MEDS: MECLIZINE HCL 12.5 MG TABLET GT SCH ×2 (09:07→21:16)
[2017-07-26] MEDS: POLYETHYLENE GLYCOL 3350 17 GM POWD.PACK GT SCH (09:07)
[2017-07-26] MEDS: Z GUARD REMEDY 4 OZ OINT TP SCH ×2 (09:07→21:16)
[2017-07-26] MEDS: HYDROGEN PEROXIDE 480 ML BOTTLE TP SCH ×2 (09:07→21:15)
[2017-07-26 14:55] VITALS: BP 118/75
[2017-07-26 18:19] VITALS: BP 115/70
[2017-07-26 20:07] VITALS: BP 122/78
[2017-07-26] MEDS: ZINC SULFATE 220 MG CAPSULE GT SCH (21:15)
[2017-07-26] MEDS: ASCORBIC ACID 500 MG TABLET GT SCH (21:15)
[2017-07-26] MEDS: CYANOCOBALAMIN 500 MCG TABLET GT SCH (21:15)
[2017-07-26] MEDS: SENNOSIDES 8.6 MG TABLET GT SCH (21:15)
[2017-07-26] MEDS: DULOXETINE HCL 30 MG CAPSULE.DR GT SCH (22:23)
[2017-07-27] MEDS: IPRATROPIUM NEB FS 0.5 MG/2.5 ML AMPUL.NEB NEB SCH ×4 (01:18→20:11)
[2017-07-27] MEDS: ALBUTEROL HALF STRENGTH 1.25 MG/3 ML VIAL.NEB NEB SCH ×4 (01:18→20:11)
[2017-07-27 01:19] VITALS: BP 118/71
[2017-07-27] MEDS: LEVOTHYROXINE SODIUM 25 MCG TABLET GT SCH (06:23)
[2017-07-27] MEDS: OMEPRAZOLE 20 MG CAPSULE.DR GT SCH (06:23)
[2017-07-27 06:25] VITALS: BP 121/69
[2017-07-27] MEDS: METOCLOPRAMIDE HCL 10 MG/10 ML UDC GT SCH ×3 (09:20→16:55)
[2017-07-27] MEDS: KETOCONAZOLE 2% CREAM 15 GM TUBE TP SCH (09:20)
[2017-07-27] MEDS: MECLIZINE HCL 12.5 MG TABLET GT SCH ×2 (09:20→20:29)
[2017-07-27] MEDS: HYDROGEN PEROXIDE 480 ML BOTTLE TP SCH ×2 (09:20→20:29)
[2017-07-27] MEDS: Z GUARD REMEDY 4 OZ OINT TP SCH ×2 (09:20→20:29)
[2017-07-27] MEDS: FERROUS SULFATE - FOR SA ONLY 330 MG/7.5 ML UDC GT SCH (09:20)
[2017-07-27] MEDS: POLYETHYLENE GLYCOL 3350 17 GM POWD.PACK GT SCH (09:20)
--- NOTE | 2017-07-27 09:30 | NUR ---
Right buttock open skin was noted last night. Received order for wound consult.
[2017-07-27 12:00] VITALS: BP 112/51
[2017-07-27] MEDS ORDERED: Z GUARD REMEDY 2 OZ OINT TP PRN (12:30)
[2017-07-27 12:31] VITALS: BP 150/87
--- NOTE | 2017-07-27 14:32 | NUR ---
Asked by charge nurse if she can contact Dr. Cox to come and see the resident for medication evaluation of Cymbalta. Sw sent message to Dr. Cox. Will follow up.
[2017-07-27 18:00] VITALS: BP 118/64
[2017-07-27] MEDS: FIBERSOURCE HN 1,000 ML BOTTLE GT PRN (18:21)
[2017-07-27 19:58] VITALS: BP 111/60
[2017-07-27] MEDS: SENNOSIDES 8.6 MG TABLET GT SCH (20:29)
[2017-07-27] MEDS: ZINC SULFATE 220 MG CAPSULE GT SCH (20:29)
[2017-07-27] MEDS: ASCORBIC ACID 500 MG TABLET GT SCH (20:29)
[2017-07-27] MEDS: CYANOCOBALAMIN 500 MCG TABLET GT SCH (20:29)
[2017-07-27] MEDS: DULOXETINE HCL 30 MG CAPSULE.DR GT SCH (22:03)
[2017-07-28] VITALS: BP 106/52
[2017-07-28] MEDS: ALBUTEROL HALF STRENGTH 1.25 MG/3 ML VIAL.NEB NEB SCH ×4 (01:35→20:25)
[2017-07-28] MEDS: IPRATROPIUM NEB FS 0.5 MG/2.5 ML AMPUL.NEB NEB SCH ×4 (01:35→20:25)
[2017-07-28] MEDS: ACETAMINOPHEN 650 MG/20 ML UDC- FOR SA PATIENTS ONLY GT PRN (01:49)
[2017-07-28 06:00] VITALS: BP 112/60
[2017-07-28 06:32] LABS: BASOPHILS % (AUTO) 0.2 % (0.0-2.0); EOSINOPHILS # (AUTO) 0.2 /CMM (0.0-0.7); EOSINOPHILS % (AUTO) 2.1 % (0.0-6.0); HEMATOCRIT 31 % (33-45); HEMOGLOBIN 10.2 g/dL (11.5-14.8); LYMPHOCYTES # (AUTO) 1.6 /CMM (0.8-4.8); LYMPHOCYTES % (AUTO) 13.5 % (20.0-44.0); MEAN CORPUSCULAR HEMOGLOBIN 30 PG (26.0-33.0); MEAN CORPUSCULAR HGB CONC 33 g/dl (31.0-36.0); MEAN CORPUSCULAR VOLUME 90 fL (82-100); MONOCYTES # (AUTO) 0.7 /CMM (0.1-1.30); NEUTROPHILS # (AUTO) 9.1 /CMM (1.8-8.9); NEUTROPHILS % (AUTO) 78.2 % (43.0-81.0); PLATELET COUNT (AUTO) 339 /CMM (150-450); RDW COEFFICIENT OF VARIATION 15.2 (11.5-15.0); RED BLOOD CELL COUNT(AUTO) 3.39 MIL/uL (4.0-5.2); WHITE BLOOD COUNT (AUTO) 11.7 K/uL (4.3-11.0)
[2017-07-28] MEDS: OMEPRAZOLE 20 MG CAPSULE.DR GT SCH (06:39)
[2017-07-28] MEDS: LEVOTHYROXINE SODIUM 25 MCG TABLET GT SCH (06:40)
[2017-07-28 06:43] LABS: CALCIUM, SERUM 8.8 mg/dL (8.5-10.1); CARBON DIOXIDE 28 mmol/L (21-32); CHLORIDE 102 mmol/L (98-107); CREATININE 0.4 mg/dL (0.6-1.3); GLUCOSE 126 mg/dL (74-106); MAGNESIUM 1.9 mg/dL (1.8-2.4); PHOSPHORUS 3.1 mg/dL (2.5-4.9); POTASSIUM 4.4 mmol/L (3.5-5.1); SODIUM SERUM 137 mmol/L (136-145); UREA NITROGEN, BLOOD 17 mg/dL (7-18)
[2017-07-28 08:24] VITALS: BP 121/66
[2017-07-28] MEDS: POLYETHYLENE GLYCOL 3350 17 GM POWD.PACK GT SCH (09:11)
[2017-07-28] MEDS: METOCLOPRAMIDE HCL 10 MG/10 ML UDC GT SCH ×3 (09:11→17:22)
[2017-07-28] MEDS: FERROUS SULFATE - FOR SA ONLY 330 MG/7.5 ML UDC GT SCH (09:11)
[2017-07-28] MEDS: MECLIZINE HCL 12.5 MG TABLET GT SCH ×2 (09:11→21:15)
[2017-07-28] MEDS: HYDROGEN PEROXIDE 480 ML BOTTLE TP SCH ×2 (09:24→21:14)
[2017-07-28] MEDS: Z GUARD REMEDY 4 OZ OINT TP SCH ×2 (09:24→21:15)
[2017-07-28] MEDS: Z GUARD REMEDY 2 OZ OINT TP SCH (09:24)
--- NOTE | 2017-07-28 10:52 | NUR ---
WOUND CARE CONSULT: PT SEEN FOR RT BUTTOCK AREA OF EXCORIATION WHICH IS MOISTURE RELATED. RECOMMEND CONTINUE PRESENT TREATMENT OF Z GUARD AND COVER WITH MEPILEX. SKIN TO BE KEPT CLEAN AND DRY. DISCUSSED WITH NURSING STAFF. WILL SEE PRN. M D IN AGREEMENT WITH PLAN OF CARE.
[2017-07-28] MEDS: CLONIDINE HCL 0.1 MG TABLET GT PRN ×2 (11:31→17:23)
[2017-07-28 12:00] VITALS: BP 107/68
[2017-07-28] MEDS: FIBERSOURCE HN 1,000 ML BOTTLE GT PRN (13:38)
--- NOTE | 2017-07-28 13:55 | NUR ---
IDT meeting held, reviewed current medications, new orders, treatment and recent labs. Pharmacy recommended to obtain TSH level, Dr. John agreed and ordered it for next week, Resident's daughter unable to participate in the meeting via phone call but made aware of new order.
[2017-07-28 18:00] VITALS: BP 101/64
--- NOTE | 2017-07-28 18:40 | NUR ---
Seen and examined by Deneen Hankins NP, NNO given at this time.
[2017-07-28] MEDS: ZINC SULFATE 220 MG CAPSULE GT SCH (21:14)
[2017-07-28] MEDS: ASCORBIC ACID 500 MG TABLET GT SCH (21:14)
[2017-07-28] MEDS: DULOXETINE HCL 30 MG CAPSULE.DR GT SCH (21:15)
[2017-07-28] MEDS: SENNOSIDES 8.6 MG TABLET GT SCH (21:15)
[2017-07-28] MEDS: CYANOCOBALAMIN 500 MCG TABLET GT SCH (21:15)
[2017-07-28] MEDS: TRAMADOL HCL 50 MG TABLET GT PRN (23:38)
[2017-07-28 23:55] VITALS: BP 110/60
[2017-07-29] VITALS: BP 124/94
--- NOTE | 2017-07-29 | NUR ---
Pt noted with facial grimacing and restless, repositioned comfortably still not effective Tramadol given via gt given as ordered.Will continue to monitor.
[2017-07-29] MEDS: ALBUTEROL HALF STRENGTH 1.25 MG/3 ML VIAL.NEB NEB SCH ×4 (00:58→20:12)
[2017-07-29] MEDS: IPRATROPIUM NEB FS 0.5 MG/2.5 ML AMPUL.NEB NEB SCH ×4 (00:58→20:12)
--- NOTE | 2017-07-29 01:00 | NUR ---
Pt sleeping at this time comfortable and calm.
[2017-07-29] MEDS: FIBERSOURCE HN 1,000 ML BOTTLE GT PRN ×2 (04:30→21:56)
[2017-07-29] MEDS: LEVOTHYROXINE SODIUM 25 MCG TABLET GT SCH (05:42)
[2017-07-29] MEDS: OMEPRAZOLE 20 MG CAPSULE.DR GT SCH (05:42)
[2017-07-29 06:01] VITALS: BP 139/65
[2017-07-29 07:46] VITALS: BP 141/83
[2017-07-29] MEDS: MECLIZINE HCL 12.5 MG TABLET GT SCH ×2 (08:41→21:20)
[2017-07-29] MEDS: FERROUS SULFATE - FOR SA ONLY 330 MG/7.5 ML UDC GT SCH (08:41)
[2017-07-29] MEDS: POLYETHYLENE GLYCOL 3350 17 GM POWD.PACK GT SCH (08:42)
[2017-07-29] MEDS: METOCLOPRAMIDE HCL 10 MG/10 ML UDC GT SCH ×3 (08:42→17:29)
[2017-07-29] MEDS: HYDROGEN PEROXIDE 480 ML BOTTLE TP SCH ×2 (09:00→21:20)
[2017-07-29] MEDS: Z GUARD REMEDY 4 OZ OINT TP SCH ×2 (09:00→21:20)
[2017-07-29] MEDS: Z GUARD REMEDY 2 OZ OINT TP SCH (09:00)
[2017-07-29] MEDS: CLONIDINE HCL 0.1 MG TABLET GT PRN ×2 (12:21→17:30)
[2017-07-29 12:48] VITALS: BP 122/60
[2017-07-29 18:24] VITALS: BP 121/74
[2017-07-29 19:41] VITALS: BP 137/64
[2017-07-29] MEDS: SENNOSIDES 8.6 MG TABLET GT SCH (21:20)
[2017-07-29] MEDS: CYANOCOBALAMIN 500 MCG TABLET GT SCH (21:20)
[2017-07-29] MEDS: DULOXETINE HCL 30 MG CAPSULE.DR GT SCH (21:20)
[2017-07-29] MEDS: ASCORBIC ACID 500 MG TABLET GT SCH (21:20)
[2017-07-29] MEDS: ZINC SULFATE 220 MG CAPSULE GT SCH (21:20)
[2017-07-30 00:20] VITALS: BP 128/73
[2017-07-30] MEDS: IPRATROPIUM NEB FS 0.5 MG/2.5 ML AMPUL.NEB NEB SCH ×4 (02:09→19:38)
[2017-07-30] MEDS: ALBUTEROL HALF STRENGTH 1.25 MG/3 ML VIAL.NEB NEB SCH ×4 (02:09→19:38)
[2017-07-30] MEDS: OMEPRAZOLE 20 MG CAPSULE.DR GT SCH (05:29)
[2017-07-30] MEDS: LEVOTHYROXINE SODIUM 25 MCG TABLET GT SCH (05:29)
[2017-07-30 06:17] VITALS: BP 121/71
[2017-07-30 08:00] VITALS: BP 143/77
[2017-07-30] MEDS: MECLIZINE HCL 12.5 MG TABLET GT SCH ×2 (09:00→20:16)
[2017-07-30] MEDS: METOCLOPRAMIDE HCL 10 MG/10 ML UDC GT SCH ×3 (09:00→17:21)
[2017-07-30] MEDS: Z GUARD REMEDY 4 OZ OINT TP SCH ×2 (09:00→20:17)
[2017-07-30] MEDS: FERROUS SULFATE - FOR SA ONLY 330 MG/7.5 ML UDC GT SCH (09:00)
[2017-07-30] MEDS: HYDROGEN PEROXIDE 480 ML BOTTLE TP SCH ×2 (09:00→20:17)
[2017-07-30] MEDS: POLYETHYLENE GLYCOL 3350 17 GM POWD.PACK GT SCH (09:00)
[2017-07-30] MEDS: Z GUARD REMEDY 2 OZ OINT TP SCH (09:00)
[2017-07-30] MEDS: FIBERSOURCE HN 1,000 ML BOTTLE GT PRN (14:45)
[2017-07-30 14:49] VITALS: BP 119/72
[2017-07-30 19:07] VITALS: BP 122/73
[2017-07-30 20:01] VITALS: BP 124/68
[2017-07-30] MEDS: CYANOCOBALAMIN 500 MCG TABLET GT SCH (20:16)
[2017-07-30] MEDS: ZINC SULFATE 220 MG CAPSULE GT SCH (20:17)
[2017-07-30] MEDS: ASCORBIC ACID 500 MG TABLET GT SCH (20:17)
[2017-07-30] MEDS: SENNOSIDES 8.6 MG TABLET GT SCH (21:23)
[2017-07-30] MEDS: DULOXETINE HCL 30 MG CAPSULE.DR GT SCH (21:36)
[2017-07-31 00:59] VITALS: BP 117/70
[2017-07-31] MEDS: ALBUTEROL HALF STRENGTH 1.25 MG/3 ML VIAL.NEB NEB SCH ×4 (01:09→19:46)
[2017-07-31] MEDS: IPRATROPIUM NEB FS 0.5 MG/2.5 ML AMPUL.NEB NEB SCH ×4 (01:09→19:46)
[2017-07-31] MEDS: OMEPRAZOLE 20 MG CAPSULE.DR GT SCH (06:02)
[2017-07-31] MEDS: LEVOTHYROXINE SODIUM 25 MCG TABLET GT SCH (06:02)
[2017-07-31 06:12] VITALS: BP 120/70
[2017-07-31 07:49] VITALS: BP 136/80
[2017-07-31] MEDS: POLYETHYLENE GLYCOL 3350 17 GM POWD.PACK GT SCH (09:32)
[2017-07-31] MEDS: Z GUARD REMEDY 4 OZ OINT TP SCH ×2 (09:32→20:16)
[2017-07-31] MEDS: HYDROGEN PEROXIDE 480 ML BOTTLE TP SCH ×2 (09:32→20:15)
[2017-07-31] MEDS: Z GUARD REMEDY 2 OZ OINT TP SCH (09:32)
[2017-07-31] MEDS: METOCLOPRAMIDE HCL 10 MG/10 ML UDC GT SCH ×3 (09:32→17:48)
[2017-07-31] MEDS: MECLIZINE HCL 12.5 MG TABLET GT SCH ×2 (09:32→20:14)
[2017-07-31] MEDS: FERROUS SULFATE - FOR SA ONLY 330 MG/7.5 ML UDC GT SCH (09:32)
--- NOTE | 2017-07-31 13:00 | NUR ---
Seen by OUTBOUND TELEMARKETING REPRESENTATIVE Deneen Hankins. Relayed TSH level 3.814 to her. Pt on Levothyroxine 25 mcg GT daily. No new order
[2017-07-31 14:21] VITALS: BP 124/73
[2017-07-31 18:01] VITALS: BP 112/69
[2017-07-31 20:06] VITALS: BP 113/79
[2017-07-31] MEDS: CYANOCOBALAMIN 500 MCG TABLET GT SCH (20:14)
[2017-07-31] MEDS: SENNOSIDES 8.6 MG TABLET GT SCH (20:14)
[2017-07-31] MEDS: ASCORBIC ACID 500 MG TABLET GT SCH (20:15)
[2017-07-31] MEDS: ZINC SULFATE 220 MG CAPSULE GT SCH (20:15)
[2017-07-31] MEDS: DULOXETINE HCL 30 MG CAPSULE.DR GT SCH (21:31)
[2017-07-31] MEDS: FIBERSOURCE HN 1,000 ML BOTTLE GT PRN (23:54)
[2017-08-01 00:40] VITALS: BP 126/67
[2017-08-01] MEDS: IPRATROPIUM NEB FS 0.5 MG/2.5 ML AMPUL.NEB NEB SCH ×4 (01:15→19:25)
[2017-08-01] MEDS: ALBUTEROL HALF STRENGTH 1.25 MG/3 ML VIAL.NEB NEB SCH ×4 (01:15→19:25)
[2017-08-01] MEDS: LEVOTHYROXINE SODIUM 25 MCG TABLET GT SCH (05:01)
[2017-08-01] MEDS: OMEPRAZOLE 20 MG CAPSULE.DR GT SCH (05:01)
[2017-08-01 06:05] VITALS: BP 119/72
[2017-08-01 07:46] VITALS: BP 153/86
[2017-08-01] MEDS: METOCLOPRAMIDE HCL 10 MG/10 ML UDC GT SCH ×3 (09:00→16:37)
[2017-08-01] MEDS: MECLIZINE HCL 12.5 MG TABLET GT SCH ×2 (09:00→20:20)
[2017-08-01] MEDS: Z GUARD REMEDY 4 OZ OINT TP SCH ×2 (09:00→20:21)
[2017-08-01] MEDS: HYDROGEN PEROXIDE 480 ML BOTTLE TP SCH ×2 (09:00→20:21)
[2017-08-01] MEDS: FERROUS SULFATE - FOR SA ONLY 330 MG/7.5 ML UDC GT SCH (09:00)
[2017-08-01] MEDS: POLYETHYLENE GLYCOL 3350 17 GM POWD.PACK GT SCH (09:00)
[2017-08-01] MEDS: Z GUARD REMEDY 2 OZ OINT TP SCH (09:00)
[2017-08-01 14:30] VITALS: BP 112/69
[2017-08-01 18:25] VITALS: BP 112/69
[2017-08-01] MEDS: FIBERSOURCE HN 1,000 ML BOTTLE GT PRN (18:55)
[2017-08-01 19:49] VITALS: BP 124/74
[2017-08-01] MEDS: CYANOCOBALAMIN 500 MCG TABLET GT SCH (20:18)
[2017-08-01] MEDS: SENNOSIDES 8.6 MG TABLET GT SCH (20:20)
[2017-08-01] MEDS: ZINC SULFATE 220 MG CAPSULE GT SCH (20:21)
[2017-08-01] MEDS: ASCORBIC ACID 500 MG TABLET GT SCH (20:21)
[2017-08-01] MEDS: DULOXETINE HCL 30 MG CAPSULE.DR GT SCH (21:59)
[2017-08-02 00:01] VITALS: BP 122/76
[2017-08-02] MEDS: IPRATROPIUM NEB FS 0.5 MG/2.5 ML AMPUL.NEB NEB SCH ×4 (01:29→19:44)
[2017-08-02] MEDS: ALBUTEROL HALF STRENGTH 1.25 MG/3 ML VIAL.NEB NEB SCH ×4 (01:30→19:44)
[2017-08-02] MEDS: LEVOTHYROXINE SODIUM 25 MCG TABLET GT SCH (05:22)
[2017-08-02] MEDS: OMEPRAZOLE 20 MG CAPSULE.DR GT SCH (05:22)
[2017-08-02 06:21] VITALS: BP 125/71
[2017-08-02 07:39] VITALS: BP 130/65
[2017-08-02] MEDS: FERROUS SULFATE - FOR SA ONLY 330 MG/7.5 ML UDC GT SCH (09:49)
[2017-08-02] MEDS: METOCLOPRAMIDE HCL 10 MG/10 ML UDC GT SCH ×3 (09:49→16:43)
[2017-08-02] MEDS: POLYETHYLENE GLYCOL 3350 17 GM POWD.PACK GT SCH (09:49)
[2017-08-02] MEDS: Z GUARD REMEDY 2 OZ OINT TP SCH (09:49)
[2017-08-02] MEDS: HYDROGEN PEROXIDE 480 ML BOTTLE TP SCH ×2 (09:49→21:35)
[2017-08-02] MEDS: MECLIZINE HCL 12.5 MG TABLET GT SCH ×2 (09:49→21:35)
[2017-08-02] MEDS: Z GUARD REMEDY 4 OZ OINT TP SCH ×2 (09:49→21:35)
--- NOTE | 2017-08-02 12:45 | NUR ---
Received a telephone order from Dr. Cox to reduce Cymbalta to 60mg QHS from 90 mg. for gradual drug reduction program. Resident's daughter Cheli notified of the new order, she is pleased that medication is reduced. She was also made aware of the discoloration in the patient's L hand which could be from a blood draw. No facial grimacing, L hand non- tender. Will continue to monitor.
[2017-08-02 14:23] VITALS: BP 118/68
[2017-08-02 18:18] VITALS: BP 115/73
[2017-08-02 19:56] VITALS: BP 111/44
[2017-08-02] MEDS: SENNOSIDES 8.6 MG TABLET GT SCH (21:35)
[2017-08-02] MEDS: CYANOCOBALAMIN 500 MCG TABLET GT SCH (21:35)
[2017-08-02] MEDS: DULOXETINE HCL 30 MG CAPSULE.DR GT SCH (21:35)
[2017-08-02] MEDS: ASCORBIC ACID 500 MG TABLET GT SCH (21:35)
[2017-08-02] MEDS: ZINC SULFATE 220 MG CAPSULE GT SCH (21:35)
[2017-08-03 00:20] VITALS: BP 121/67
[2017-08-03] MEDS: ALBUTEROL HALF STRENGTH 1.25 MG/3 ML VIAL.NEB NEB SCH ×4 (01:30→20:08)
[2017-08-03] MEDS: IPRATROPIUM NEB FS 0.5 MG/2.5 ML AMPUL.NEB NEB SCH ×4 (01:30→20:08)
[2017-08-03] MEDS: OMEPRAZOLE 20 MG CAPSULE.DR GT SCH (05:37)
[2017-08-03] MEDS: LEVOTHYROXINE SODIUM 25 MCG TABLET GT SCH (05:37)
[2017-08-03 06:07] VITALS: BP 137/69
[2017-08-03 07:47] VITALS: BP 139/63
[2017-08-03] MEDS: METOCLOPRAMIDE HCL 10 MG/10 ML UDC GT SCH ×3 (09:43→17:00)
[2017-08-03] MEDS: MECLIZINE HCL 12.5 MG TABLET GT SCH ×2 (09:43→21:41)
[2017-08-03] MEDS: Z GUARD REMEDY 2 OZ OINT TP SCH (09:43)
[2017-08-03] MEDS: FERROUS SULFATE - FOR SA ONLY 330 MG/7.5 ML UDC GT SCH (09:43)
[2017-08-03] MEDS: POLYETHYLENE GLYCOL 3350 17 GM POWD.PACK GT SCH (09:43)
[2017-08-03] MEDS: HYDROGEN PEROXIDE 480 ML BOTTLE TP SCH ×2 (09:43→21:41)
[2017-08-03] MEDS: Z GUARD REMEDY 4 OZ OINT TP SCH ×2 (09:43→21:41)
[2017-08-03 19:02] VITALS: BP 125/70
[2017-08-03 20:00] VITALS: BP 134/65
[2017-08-03] MEDS: DULOXETINE HCL 30 MG CAPSULE.DR GT SCH (21:41)
[2017-08-03] MEDS: CYANOCOBALAMIN 500 MCG TABLET GT SCH (21:41)
[2017-08-03] MEDS: SENNOSIDES 8.6 MG TABLET GT SCH (21:41)
[2017-08-03] MEDS: ZINC SULFATE 220 MG CAPSULE GT SCH (21:41)
[2017-08-03] MEDS: ASCORBIC ACID 500 MG TABLET GT SCH (21:41)
[2017-08-04 00:30] VITALS: BP 139/75
[2017-08-04] MEDS: IPRATROPIUM NEB FS 0.5 MG/2.5 ML AMPUL.NEB NEB SCH ×4 (01:03→19:55)
[2017-08-04] MEDS: ALBUTEROL HALF STRENGTH 1.25 MG/3 ML VIAL.NEB NEB SCH ×4 (01:03→19:55)
[2017-08-04] MEDS: FIBERSOURCE HN 1,000 ML BOTTLE GT PRN ×2 (03:00→21:58)
[2017-08-04] MEDS: LEVOTHYROXINE SODIUM 25 MCG TABLET GT SCH (05:37)
[2017-08-04] MEDS: OMEPRAZOLE 20 MG CAPSULE.DR GT SCH (05:37)
[2017-08-04 06:28] VITALS: BP 129/72
[2017-08-04 07:47] VITALS: BP 134/71
[2017-08-04] MEDS: FERROUS SULFATE - FOR SA ONLY 330 MG/7.5 ML UDC GT SCH (09:00)
[2017-08-04] MEDS: Z GUARD REMEDY 2 OZ OINT TP SCH (09:00)
[2017-08-04] MEDS: METOCLOPRAMIDE HCL 10 MG/10 ML UDC GT SCH ×3 (09:00→17:00)
[2017-08-04] MEDS: Z GUARD REMEDY 4 OZ OINT TP SCH ×2 (09:00→21:36)
[2017-08-04] MEDS: MECLIZINE HCL 12.5 MG TABLET GT SCH ×2 (09:00→21:36)
[2017-08-04] MEDS: POLYETHYLENE GLYCOL 3350 17 GM POWD.PACK GT SCH (09:00)
[2017-08-04] MEDS: HYDROGEN PEROXIDE 480 ML BOTTLE TP SCH ×2 (09:00→21:36)
[2017-08-04 12:00] VITALS: BP 124/68
[2017-08-04 18:00] VITALS: BP 111/68
[2017-08-04 19:58] VITALS: BP 118/72
[2017-08-04] MEDS: DULOXETINE HCL 30 MG CAPSULE.DR GT SCH (21:36)
[2017-08-04] MEDS: SENNOSIDES 8.6 MG TABLET GT SCH (21:36)
[2017-08-04] MEDS: ASCORBIC ACID 500 MG TABLET GT SCH (21:36)
[2017-08-04] MEDS: CYANOCOBALAMIN 500 MCG TABLET GT SCH (21:36)
[2017-08-04] MEDS: ZINC SULFATE 220 MG CAPSULE GT SCH (21:36)
[2017-08-05 00:32] VITALS: BP 128/62
[2017-08-05] MEDS: IPRATROPIUM NEB FS 0.5 MG/2.5 ML AMPUL.NEB NEB SCH ×4 (01:09→19:36)
[2017-08-05] MEDS: ALBUTEROL HALF STRENGTH 1.25 MG/3 ML VIAL.NEB NEB SCH ×4 (01:09→19:36)
[2017-08-05] MEDS: LEVOTHYROXINE SODIUM 25 MCG TABLET GT SCH (05:31)
[2017-08-05] MEDS: OMEPRAZOLE 20 MG CAPSULE.DR GT SCH (05:31)
[2017-08-05 06:05] VITALS: BP 106/62
[2017-08-05 07:36] VITALS: BP 129/76
[2017-08-05] MEDS: MECLIZINE HCL 12.5 MG TABLET GT SCH ×2 (09:00→22:10)
[2017-08-05] MEDS: METOCLOPRAMIDE HCL 10 MG/10 ML UDC GT SCH ×3 (09:00→17:00)
[2017-08-05] MEDS: HYDROGEN PEROXIDE 480 ML BOTTLE TP SCH ×2 (09:00→21:00)
[2017-08-05] MEDS: POLYETHYLENE GLYCOL 3350 17 GM POWD.PACK GT SCH (09:00)
[2017-08-05] MEDS: Z GUARD REMEDY 2 OZ OINT TP SCH (09:00)
[2017-08-05] MEDS: Z GUARD REMEDY 4 OZ OINT TP SCH ×2 (09:00→21:00)
[2017-08-05] MEDS: FERROUS SULFATE - FOR SA ONLY 330 MG/7.5 ML UDC GT SCH (09:00)
[2017-08-05 12:00] VITALS: BP 126/74
[2017-08-05] MEDS: FIBERSOURCE HN 1,000 ML BOTTLE GT PRN (18:13)
[2017-08-05 18:49] VITALS: BP 107/74
[2017-08-05 20:00] VITALS: BP 122/79
[2017-08-05] MEDS: ASCORBIC ACID 500 MG TABLET GT SCH (21:00)
[2017-08-05] MEDS: SENNOSIDES 8.6 MG TABLET GT SCH (21:00)
[2017-08-05] MEDS: ZINC SULFATE 220 MG CAPSULE GT SCH (21:00)
[2017-08-05] MEDS: CYANOCOBALAMIN 500 MCG TABLET GT SCH (22:11)
[2017-08-05] MEDS: DULOXETINE HCL 30 MG CAPSULE.DR GT SCH (22:11)
[2017-08-06] VITALS: BP 125/72
[2017-08-06] MEDS: ALBUTEROL HALF STRENGTH 1.25 MG/3 ML VIAL.NEB NEB SCH ×4 (02:12→19:09)
[2017-08-06] MEDS: IPRATROPIUM NEB FS 0.5 MG/2.5 ML AMPUL.NEB NEB SCH ×4 (02:12→19:09)
[2017-08-06] MEDS: OMEPRAZOLE 20 MG CAPSULE.DR GT SCH (05:20)
[2017-08-06] MEDS: LEVOTHYROXINE SODIUM 25 MCG TABLET GT SCH (05:20)
[2017-08-06 06:00] VITALS: BP 141/82
[2017-08-06 07:49] VITALS: BP 143/76
[2017-08-06] MEDS: Z GUARD REMEDY 4 OZ OINT TP SCH ×2 (09:00→20:22)
[2017-08-06] MEDS: FERROUS SULFATE - FOR SA ONLY 330 MG/7.5 ML UDC GT SCH (09:00)
[2017-08-06] MEDS: MECLIZINE HCL 12.5 MG TABLET GT SCH ×2 (09:00→20:18)
[2017-08-06] MEDS: METOCLOPRAMIDE HCL 10 MG/10 ML UDC GT SCH ×3 (09:00→17:05)
[2017-08-06] MEDS: HYDROGEN PEROXIDE 480 ML BOTTLE TP SCH ×2 (09:00→20:22)
[2017-08-06] MEDS: Z GUARD REMEDY 2 OZ OINT TP SCH (09:00)
[2017-08-06] MEDS: POLYETHYLENE GLYCOL 3350 17 GM POWD.PACK GT SCH (09:00)
[2017-08-06] MEDS: FIBERSOURCE HN 1,000 ML BOTTLE GT PRN (14:11)
[2017-08-06 16:05] VITALS: BP 140/76
[2017-08-06 18:24] VITALS: BP 106/68
[2017-08-06] MEDS: SENNOSIDES 8.6 MG TABLET GT SCH (20:18)
[2017-08-06] MEDS: CYANOCOBALAMIN 500 MCG TABLET GT SCH (20:18)
[2017-08-06] MEDS: ZINC SULFATE 220 MG CAPSULE GT SCH (20:21)
[2017-08-06] MEDS: ASCORBIC ACID 500 MG TABLET GT SCH (20:21)
[2017-08-06 20:36] VITALS: BP 99/56
[2017-08-06] MEDS: DULOXETINE HCL 30 MG CAPSULE.DR GT SCH (21:40)
[2017-08-07 00:40] VITALS: BP 122/74
[2017-08-07] MEDS: ALBUTEROL HALF STRENGTH 1.25 MG/3 ML VIAL.NEB NEB SCH ×4 (01:17→19:43)
[2017-08-07] MEDS: IPRATROPIUM NEB FS 0.5 MG/2.5 ML AMPUL.NEB NEB SCH ×4 (01:17→19:43)
[2017-08-07] MEDS: FIBERSOURCE HN 1,000 ML BOTTLE GT PRN (04:56)
[2017-08-07] MEDS: OMEPRAZOLE 20 MG CAPSULE.DR GT SCH (05:58)
[2017-08-07] MEDS: LEVOTHYROXINE SODIUM 25 MCG TABLET GT SCH (05:58)
[2017-08-07 06:14] VITALS: BP 126/70
[2017-08-07 07:32] VITALS: BP 139/83
[2017-08-07] MEDS: Z GUARD REMEDY 2 OZ OINT TP SCH (09:00)
[2017-08-07] MEDS: POLYETHYLENE GLYCOL 3350 17 GM POWD.PACK GT SCH (09:00)
[2017-08-07] MEDS: METOCLOPRAMIDE HCL 10 MG/10 ML UDC GT SCH ×3 (09:00→17:00)
[2017-08-07] MEDS: MECLIZINE HCL 12.5 MG TABLET GT SCH ×2 (09:00→20:22)
[2017-08-07] MEDS: Z GUARD REMEDY 4 OZ OINT TP SCH ×3 (09:00→20:23)
[2017-08-07] MEDS: HYDROGEN PEROXIDE 480 ML BOTTLE TP SCH ×2 (09:00→20:22)
[2017-08-07] MEDS: FERROUS SULFATE - FOR SA ONLY 330 MG/7.5 ML UDC GT SCH (09:00)
[2017-08-07] MEDS ORDERED: Z GUARD REMEDY 4 OZ OINT TP PRN (11:30)
--- NOTE | 2017-08-07 11:35 | NUR ---
Seen and examined by Dr. Fontanez. Notified her that pt was noted with a small open skin on the gluteal area. Received order to apply Z-guard and Mepilex on the area. Also received order for wound consult. Notified pt's daughter.
--- NOTE | 2017-08-07 14:05 | NUR ---
WOUND CARE CONSULT: PT SEEN FOR GLUTEAL CREASE OPEN SKIN. PT NOTED TO HAVE SMALL AREA OF OPEN SKIN TO GLUTEAL CREASE WHICH IS MOISTURE RELATED. CONCUR WITH CURRENT TREATMENT OF Z GUARD AND MEPILEX. SKIN TO BE KEPT CLEAN AND DRY. DISCUSSED WITH NURSING STAFF. WILL SEE PRN. IN AGREEMENT WITH PLAN OF CARE. PT ON FIRST STEP MATTRESS WITH ALL SKIN PROTECTION MEASURES IN PLACE.
[2017-08-07 19:15] VITALS: BP 118/70
[2017-08-07] MEDS: ZINC SULFATE 220 MG CAPSULE GT SCH (20:22)
[2017-08-07] MEDS: SENNOSIDES 8.6 MG TABLET GT SCH (20:22)
[2017-08-07] MEDS: ASCORBIC ACID 500 MG TABLET GT SCH (20:22)
[2017-08-07] MEDS: CYANOCOBALAMIN 500 MCG TABLET GT SCH (20:22)
[2017-08-07 21:16] VITALS: BP 124/64
[2017-08-07] MEDS: DULOXETINE HCL 30 MG CAPSULE.DR GT SCH (21:41)
[2017-08-08] MEDS: FIBERSOURCE HN 1,000 ML BOTTLE GT PRN ×2 (00:27→21:16)
[2017-08-08 00:36] VITALS: BP 125/76
[2017-08-08] MEDS: ALBUTEROL HALF STRENGTH 1.25 MG/3 ML VIAL.NEB NEB SCH ×4 (00:39→19:50)
[2017-08-08] MEDS: IPRATROPIUM NEB FS 0.5 MG/2.5 ML AMPUL.NEB NEB SCH ×4 (00:39→19:50)
[2017-08-08] MEDS: LEVOTHYROXINE SODIUM 25 MCG TABLET GT SCH (05:20)
[2017-08-08] MEDS: OMEPRAZOLE 20 MG CAPSULE.DR GT SCH (05:20)
[2017-08-08 06:31] VITALS: BP 121/73
[2017-08-08 08:00] VITALS: BP_SYST 134; BP_DIAS 67; BP_DIAS 69
[2017-08-08] MEDS: Z GUARD REMEDY 2 OZ OINT TP SCH (09:54)
[2017-08-08] MEDS: HYDROGEN PEROXIDE 480 ML BOTTLE TP SCH ×2 (09:54→21:16)
[2017-08-08] MEDS: POLYETHYLENE GLYCOL 3350 17 GM POWD.PACK GT SCH (09:54)
[2017-08-08] MEDS: METOCLOPRAMIDE HCL 10 MG/10 ML UDC GT SCH ×3 (09:54→17:00)
[2017-08-08] MEDS: FERROUS SULFATE - FOR SA ONLY 330 MG/7.5 ML UDC GT SCH (09:54)
[2017-08-08] MEDS: MECLIZINE HCL 12.5 MG TABLET GT SCH ×2 (09:54→21:15)
[2017-08-08] MEDS: Z GUARD REMEDY 4 OZ OINT TP SCH ×4 (09:55→21:16)
[2017-08-08 14:36] VITALS: BP 134/67
[2017-08-08 18:42] VITALS: BP 121/75
[2017-08-08 19:44] VITALS: BP 143/64
[2017-08-08] MEDS: CYANOCOBALAMIN 500 MCG TABLET GT SCH (21:16)
[2017-08-08] MEDS: SENNOSIDES 8.6 MG TABLET GT SCH (21:16)
[2017-08-08] MEDS: ZINC SULFATE 220 MG CAPSULE GT SCH (21:16)
[2017-08-08] MEDS: ASCORBIC ACID 500 MG TABLET GT SCH (21:16)
[2017-08-08] MEDS: DULOXETINE HCL 30 MG CAPSULE.DR GT SCH (21:16)
[2017-08-09 00:22] VITALS: BP 118/74
[2017-08-09] MEDS: IPRATROPIUM NEB FS 0.5 MG/2.5 ML AMPUL.NEB NEB SCH ×4 (01:54→19:49)
[2017-08-09] MEDS: ALBUTEROL HALF STRENGTH 1.25 MG/3 ML VIAL.NEB NEB SCH ×4 (01:54→19:49)
[2017-08-09] MEDS: LEVOTHYROXINE SODIUM 25 MCG TABLET GT SCH (05:04)
[2017-08-09] MEDS: OMEPRAZOLE 20 MG CAPSULE.DR GT SCH (05:04)
[2017-08-09 06:21] VITALS: BP 122/70
[2017-08-09 07:45] VITALS: BP 136/83
[2017-08-09] MEDS: POLYETHYLENE GLYCOL 3350 17 GM POWD.PACK GT SCH (09:29)
[2017-08-09] MEDS: MECLIZINE HCL 12.5 MG TABLET GT SCH ×2 (09:29→20:22)
[2017-08-09] MEDS: Z GUARD REMEDY 4 OZ OINT TP SCH ×4 (09:29→20:23)
[2017-08-09] MEDS: METOCLOPRAMIDE HCL 10 MG/10 ML UDC GT SCH ×3 (09:29→16:29)
[2017-08-09] MEDS: Z GUARD REMEDY 2 OZ OINT TP SCH (09:29)
[2017-08-09] MEDS: FERROUS SULFATE - FOR SA ONLY 330 MG/7.5 ML UDC GT SCH (09:29)
[2017-08-09] MEDS: HYDROGEN PEROXIDE 480 ML BOTTLE TP SCH ×2 (09:29→20:23)
--- NOTE | 2017-08-09 11:35 | NUR ---
Social Service Section of [facility] (2nd quarter) completed. Resident's daughter Cheli is her contact agent and visits frequently. She feels that she will be a resident of subacute correction. Daughter visits as often as she can and is her responsible libertarian. Per Dr. John, no further weaning trials are scheduled and resident will remain on the ventilator. Current plan of care will continue.
[2017-08-09 14:38] VITALS: BP 118/74
[2017-08-09 18:40] VITALS: BP 111/65
[2017-08-09 20:19] VITALS: BP 127/79
[2017-08-09] MEDS: ASCORBIC ACID 500 MG TABLET GT SCH (20:22)
[2017-08-09] MEDS: CYANOCOBALAMIN 500 MCG TABLET GT SCH (20:22)
[2017-08-09] MEDS: SENNOSIDES 8.6 MG TABLET GT SCH (20:22)
[2017-08-09] MEDS: ZINC SULFATE 220 MG CAPSULE GT SCH (20:23)
[2017-08-09] MEDS: DULOXETINE HCL 30 MG CAPSULE.DR GT SCH (21:35)
[2017-08-10 00:38] VITALS: BP 115/79
[2017-08-10] MEDS: ALBUTEROL HALF STRENGTH 1.25 MG/3 ML VIAL.NEB NEB SCH ×4 (01:29→20:16)
[2017-08-10] MEDS: IPRATROPIUM NEB FS 0.5 MG/2.5 ML AMPUL.NEB NEB SCH ×4 (01:29→20:16)
[2017-08-10] MEDS: FIBERSOURCE HN 1,000 ML BOTTLE GT PRN (05:49)
[2017-08-10] MEDS: OMEPRAZOLE 20 MG CAPSULE.DR GT SCH (05:51)
[2017-08-10] MEDS: LEVOTHYROXINE SODIUM 25 MCG TABLET GT SCH (05:51)
[2017-08-10 06:20] VITALS: BP 121/77
[2017-08-10 07:47] VITALS: BP 103/63
[2017-08-10] MEDS: MECLIZINE HCL 12.5 MG TABLET GT SCH ×2 (09:42→21:15)
[2017-08-10] MEDS: POLYETHYLENE GLYCOL 3350 17 GM POWD.PACK GT SCH (09:42)
[2017-08-10] MEDS: FERROUS SULFATE - FOR SA ONLY 330 MG/7.5 ML UDC GT SCH (09:42)
[2017-08-10] MEDS: Z GUARD REMEDY 4 OZ OINT TP SCH ×4 (09:43→21:17)
[2017-08-10] MEDS: METOCLOPRAMIDE HCL 10 MG/10 ML UDC GT SCH ×3 (09:43→17:57)
[2017-08-10] MEDS: HYDROGEN PEROXIDE 480 ML BOTTLE TP SCH ×2 (11:45→21:16)
[2017-08-10 16:50] VITALS: BP 116/70
[2017-08-10] MEDS: TRAMADOL HCL 50 MG TABLET GT PRN (18:16)
[2017-08-10 18:52] VITALS: BP 130/104
[2017-08-10 20:21] VITALS: BP 116/64
[2017-08-10] MEDS: SENNOSIDES 8.6 MG TABLET GT SCH (21:15)
[2017-08-10] MEDS: ASCORBIC ACID 500 MG TABLET GT SCH (21:15)
[2017-08-10] MEDS: ZINC SULFATE 220 MG CAPSULE GT SCH (21:15)
[2017-08-10] MEDS: CYANOCOBALAMIN 500 MCG TABLET GT SCH (21:15)
[2017-08-10] MEDS: ZINC OXIDE 30 GM TUBE TP SCH (21:17)
[2017-08-10] MEDS: DULOXETINE HCL 30 MG CAPSULE.DR GT SCH (21:17)
[2017-08-11 01:17] VITALS: BP 122/73
[2017-08-11] MEDS: IPRATROPIUM NEB FS 0.5 MG/2.5 ML AMPUL.NEB NEB SCH ×4 (02:00→20:16)
[2017-08-11] MEDS: ALBUTEROL HALF STRENGTH 1.25 MG/3 ML VIAL.NEB NEB SCH ×4 (02:00→20:16)
[2017-08-11] MEDS: OMEPRAZOLE 20 MG CAPSULE.DR GT SCH (05:11)
[2017-08-11] MEDS: LEVOTHYROXINE SODIUM 25 MCG TABLET GT SCH (05:11)
[2017-08-11] MEDS: FIBERSOURCE HN 1,000 ML BOTTLE GT PRN (05:11)
[2017-08-11 06:06] VITALS: BP 118/74
[2017-08-11 07:26] VITALS: BP 118/70
[2017-08-11] MEDS: MECLIZINE HCL 12.5 MG TABLET GT SCH ×2 (09:05→20:56)
[2017-08-11] MEDS: ZINC OXIDE 30 GM TUBE TP SCH ×2 (09:06→20:56)
[2017-08-11] MEDS: POLYETHYLENE GLYCOL 3350 17 GM POWD.PACK GT SCH (09:06)
[2017-08-11] MEDS: HYDROGEN PEROXIDE 480 ML BOTTLE TP SCH ×2 (09:06→20:56)
[2017-08-11] MEDS: METOCLOPRAMIDE HCL 10 MG/10 ML UDC GT SCH ×3 (09:06→17:51)
[2017-08-11] MEDS: Z GUARD REMEDY 4 OZ OINT TP SCH ×4 (09:06→20:56)
[2017-08-11] MEDS: FERROUS SULFATE - FOR SA ONLY 330 MG/7.5 ML UDC GT SCH (09:06)
[2017-08-11] MEDS: ACETAMINOPHEN 650 MG/20 ML UDC- FOR SA PATIENTS ONLY GT PRN (09:15)
[2017-08-11 12:00] VITALS: BP 111/54
[2017-08-11] MEDS: TRAMADOL HCL 50 MG TABLET GT PRN (15:22)
[2017-08-11 18:00] VITALS: BP 115/61
--- NOTE | 2017-08-11 19:00 | NUR ---
Resident noted with facial grimacing, communicated with communication board of the resident, resident complained generalized pain 5/10, turned and repositioned, skin dry and clean, still c/o, PRN Ultram 50 mg given as ordered, post an hour resident sleeping.
[2017-08-11 19:52] VITALS: BP 124/66
[2017-08-11] MEDS: SENNOSIDES 8.6 MG TABLET GT SCH (20:56)
[2017-08-11] MEDS: ZINC SULFATE 220 MG CAPSULE GT SCH (20:56)
[2017-08-11] MEDS: ASCORBIC ACID 500 MG TABLET GT SCH (20:56)
[2017-08-11] MEDS: CYANOCOBALAMIN 500 MCG TABLET GT SCH (20:56)
[2017-08-11] MEDS: SIMETHICONE SUSP 40 MG/0.6 ML BOTTLE GT PRN (20:57)
--- NOTE | 2017-08-11 20:57 | NUR ---
Pt noted with abd gas/ bloating, manual gt venting done, repositioned pt, prn simethicone for abd gas given as ordered. Will cont to monitor.
[2017-08-11] MEDS: DULOXETINE HCL 30 MG CAPSULE.DR GT SCH (21:19)
[2017-08-12 00:06] VITALS: BP 120/69
[2017-08-12] MEDS: FIBERSOURCE HN 1,000 ML BOTTLE GT PRN ×2 (01:14→20:53)
[2017-08-12] MEDS: IPRATROPIUM NEB FS 0.5 MG/2.5 ML AMPUL.NEB NEB SCH ×4 (01:15→20:19)
[2017-08-12] MEDS: ALBUTEROL HALF STRENGTH 1.25 MG/3 ML VIAL.NEB NEB SCH ×4 (01:15→20:19)
[2017-08-12] MEDS: LEVOTHYROXINE SODIUM 25 MCG TABLET GT SCH (05:23)
[2017-08-12] MEDS: OMEPRAZOLE 20 MG CAPSULE.DR GT SCH (05:23)
[2017-08-12 06:13] VITALS: BP 123/87
[2017-08-12 08:00] VITALS: BP 122/73
[2017-08-12] MEDS: MECLIZINE HCL 12.5 MG TABLET GT SCH ×2 (08:19→20:52)
[2017-08-12] MEDS: FERROUS SULFATE - FOR SA ONLY 330 MG/7.5 ML UDC GT SCH (08:19)
[2017-08-12] MEDS: POLYETHYLENE GLYCOL 3350 17 GM POWD.PACK GT SCH (08:19)
[2017-08-12] MEDS: METOCLOPRAMIDE HCL 10 MG/10 ML UDC GT SCH ×3 (08:19→17:00)
[2017-08-12] MEDS: Z GUARD REMEDY 4 OZ OINT TP SCH ×4 (08:20→20:53)
[2017-08-12] MEDS: HYDROGEN PEROXIDE 480 ML BOTTLE TP SCH ×2 (08:20→20:53)
[2017-08-12] MEDS: ZINC OXIDE 30 GM TUBE TP SCH ×2 (08:20→20:53)
[2017-08-12 12:00] VITALS: BP 127/58
[2017-08-12 18:30] VITALS: BP 124/63
[2017-08-12] MEDS: TRAMADOL HCL 50 MG TABLET GT PRN (18:36)
--- NOTE | 2017-08-12 18:52 | NUR ---
Resident noted with facial grimacing, communicated with communication board of the resident, resident complained generalized pain 6/10, turned and repositioned, skin dry and clean, still c/o pain, PRN Ultram 50 mg given as ordered, monitor for effectiveness.
[2017-08-12 19:58] VITALS: BP 125/75
[2017-08-12] MEDS: CYANOCOBALAMIN 500 MCG TABLET GT SCH (20:53)
[2017-08-12] MEDS: ASCORBIC ACID 500 MG TABLET GT SCH (20:53)
[2017-08-12] MEDS: SENNOSIDES 8.6 MG TABLET GT SCH (20:53)
[2017-08-12] MEDS: ZINC SULFATE 220 MG CAPSULE GT SCH (20:53)
[2017-08-12] MEDS: DULOXETINE HCL 30 MG CAPSULE.DR GT SCH (21:02)
[2017-08-13 00:08] VITALS: BP 120/59
[2017-08-13] MEDS: IPRATROPIUM NEB FS 0.5 MG/2.5 ML AMPUL.NEB NEB SCH ×4 (02:20→20:08)
[2017-08-13] MEDS: ALBUTEROL HALF STRENGTH 1.25 MG/3 ML VIAL.NEB NEB SCH ×4 (02:20→20:08)
[2017-08-13] MEDS: LEVOTHYROXINE SODIUM 25 MCG TABLET GT SCH (05:19)
[2017-08-13] MEDS: OMEPRAZOLE 20 MG CAPSULE.DR GT SCH (05:19)
[2017-08-13 06:08] VITALS: BP 119/62
[2017-08-13 07:53] VITALS: BP 101/66
[2017-08-13] MEDS: POLYETHYLENE GLYCOL 3350 17 GM POWD.PACK GT SCH (09:00)
[2017-08-13] MEDS: Z GUARD REMEDY 4 OZ OINT TP SCH ×4 (09:00→20:20)
[2017-08-13] MEDS: ZINC OXIDE 30 GM TUBE TP SCH ×2 (09:00→20:20)
[2017-08-13] MEDS: MECLIZINE HCL 12.5 MG TABLET GT SCH ×2 (09:00→20:20)
[2017-08-13] MEDS: METOCLOPRAMIDE HCL 10 MG/10 ML UDC GT SCH ×3 (09:00→17:16)
[2017-08-13] MEDS: HYDROGEN PEROXIDE 480 ML BOTTLE TP SCH ×2 (09:00→20:20)
[2017-08-13] MEDS: FERROUS SULFATE - FOR SA ONLY 330 MG/7.5 ML UDC GT SCH (09:00)
[2017-08-13 13:47] VITALS: BP 115/60
[2017-08-13] MEDS: FIBERSOURCE HN 1,000 ML BOTTLE GT PRN (17:23)
[2017-08-13 18:30] VITALS: BP 123/60
[2017-08-13] MEDS: ASCORBIC ACID 500 MG TABLET GT SCH (20:20)
[2017-08-13] MEDS: SENNOSIDES 8.6 MG TABLET GT SCH (20:20)
[2017-08-13] MEDS: CYANOCOBALAMIN 500 MCG TABLET GT SCH (20:20)
[2017-08-13] MEDS: ZINC SULFATE 220 MG CAPSULE GT SCH (20:20)
[2017-08-13 21:34] VITALS: BP 115/90
[2017-08-13] MEDS: DULOXETINE HCL 30 MG CAPSULE.DR GT SCH (21:51)
[2017-08-14 00:13] VITALS: BP 120/60
[2017-08-14] MEDS: IPRATROPIUM NEB FS 0.5 MG/2.5 ML AMPUL.NEB NEB SCH ×4 (01:56→20:13)
[2017-08-14] MEDS: ALBUTEROL HALF STRENGTH 1.25 MG/3 ML VIAL.NEB NEB SCH ×4 (01:56→20:13)
[2017-08-14] MEDS: OMEPRAZOLE 20 MG CAPSULE.DR GT SCH (05:14)
[2017-08-14] MEDS: LEVOTHYROXINE SODIUM 25 MCG TABLET GT SCH (05:14)
[2017-08-14 06:12] VITALS: BP 125/66
[2017-08-14] MEDS: Z GUARD REMEDY 4 OZ OINT TP SCH ×4 (09:00→20:38)
[2017-08-14] MEDS: ZINC OXIDE 30 GM TUBE TP SCH ×2 (09:00→20:38)
[2017-08-14] MEDS: HYDROGEN PEROXIDE 480 ML BOTTLE TP SCH ×2 (09:00→20:37)
[2017-08-14] MEDS: POLYETHYLENE GLYCOL 3350 17 GM POWD.PACK GT SCH (09:32)
[2017-08-14] MEDS: FERROUS SULFATE - FOR SA ONLY 330 MG/7.5 ML UDC GT SCH (09:32)
[2017-08-14] MEDS: MECLIZINE HCL 12.5 MG TABLET GT SCH ×2 (09:32→20:37)
[2017-08-14] MEDS: METOCLOPRAMIDE HCL 10 MG/10 ML UDC GT SCH ×3 (09:34→17:00)
[2017-08-14] MEDS: FIBERSOURCE HN 1,000 ML BOTTLE GT PRN (09:39)
--- NOTE | 2017-08-14 10:57 | NUR ---
seen and examined by DR Guthrie,notified regarding GT site granulation tissue growth.got an order for wound consult.noted and carried out.continue to monitor.
[2017-08-14 12:00] VITALS: BP 118/82
[2017-08-14] MEDS: ASCORBIC ACID 500 MG TABLET GT SCH (20:37)
[2017-08-14] MEDS: CYANOCOBALAMIN 500 MCG TABLET GT SCH (20:37)
[2017-08-14] MEDS: SENNOSIDES 8.6 MG TABLET GT SCH (20:37)
[2017-08-14] MEDS: ZINC SULFATE 220 MG CAPSULE GT SCH (20:37)
[2017-08-14 21:09] VITALS: BP 132/59
[2017-08-14] MEDS: DULOXETINE HCL 30 MG CAPSULE.DR GT SCH (21:40)
[2017-08-15 00:21] VITALS: BP 132/66
[2017-08-15] MEDS: ALBUTEROL HALF STRENGTH 1.25 MG/3 ML VIAL.NEB NEB SCH ×4 (02:05→19:43)
[2017-08-15] MEDS: IPRATROPIUM NEB FS 0.5 MG/2.5 ML AMPUL.NEB NEB SCH ×4 (02:05→19:43)
[2017-08-15] MEDS: OMEPRAZOLE 20 MG CAPSULE.DR GT SCH (05:08)
[2017-08-15] MEDS: LEVOTHYROXINE SODIUM 25 MCG TABLET GT SCH (05:08)
[2017-08-15] MEDS: FIBERSOURCE HN 1,000 ML BOTTLE GT PRN (05:52)
[2017-08-15 06:30] VITALS: BP 124/70
[2017-08-15 09:00] VITALS: BP 128/73
[2017-08-15] MEDS: MECLIZINE HCL 12.5 MG TABLET GT SCH ×2 (09:20→21:12)
[2017-08-15] MEDS: FERROUS SULFATE - FOR SA ONLY 330 MG/7.5 ML UDC GT SCH (09:20)
[2017-08-15] MEDS: POLYETHYLENE GLYCOL 3350 17 GM POWD.PACK GT SCH (09:21)
[2017-08-15] MEDS: HYDROGEN PEROXIDE 480 ML BOTTLE TP SCH ×2 (09:21→21:12)
[2017-08-15] MEDS: Z GUARD REMEDY 4 OZ OINT TP SCH ×4 (09:21→21:12)
[2017-08-15] MEDS: ZINC OXIDE 30 GM TUBE TP SCH ×2 (09:21→21:12)
--- NOTE | 2017-08-15 09:48 | NUR ---
SOIL SAMPLER WOUND CARE RECEIVED WOUND CONSULT FOR EXCESSIVE GRANULATION TISSUE AT G-TUBE SITE. WOUND CARE WILL DEFER TO SURGEON FOR THIS. CALL PLACED TO DR LOCO ENG FOR CONSULT, WILL AWAIT PHONE CALL BACK FROM SURGEON.
--- NOTE | 2017-08-15 09:58 | NUR ---
Seen and examined by Dr. John, made aware patient with granulation tissue in the GT stoma, wound nurse notified Dr. Siddhartha Foreman, surgeon. NNO given.
--- NOTE | 2017-08-15 13:15 | NUR ---
Spoke with daughter, Cheli, who is at bedside visiting resident. Asked about resident's taxicab driver memory and confirms Mrs Gil still recognizes her as the daughter and that she responds to simple communication with her such as those answerable by yes or no. Asked about Brief Interview for Mental Status which is done during MDS assessments, daughter replied that resident is no longer interested in things that she cannot do such as recalling recent events or telling current date. Shared with daughter that communication folder with Solomon Islander language/words is kept in the bedside drawer for prn use by staff.
[2017-08-15] MEDS: METOCLOPRAMIDE HCL 10 MG/10 ML UDC GT SCH (17:00)
[2017-08-15 20:26] VITALS: BP 128/61
[2017-08-15] MEDS: SENNOSIDES 8.6 MG TABLET GT SCH (21:12)
[2017-08-15] MEDS: DULOXETINE HCL 30 MG CAPSULE.DR GT SCH (21:12)
[2017-08-15] MEDS: CYANOCOBALAMIN 500 MCG TABLET GT SCH (21:12)
[2017-08-15] MEDS: ASCORBIC ACID 500 MG TABLET GT SCH (21:12)
[2017-08-15] MEDS: ZINC SULFATE 220 MG CAPSULE GT SCH (21:12)
[2017-08-16] VITALS: BP 130/70
[2017-08-16] MEDS: FIBERSOURCE HN 1,000 ML BOTTLE GT PRN ×2 (01:00→22:09)
[2017-08-16] MEDS: IPRATROPIUM NEB FS 0.5 MG/2.5 ML AMPUL.NEB NEB SCH ×4 (01:02→19:43)
[2017-08-16] MEDS: ALBUTEROL HALF STRENGTH 1.25 MG/3 ML VIAL.NEB NEB SCH ×4 (01:02→19:43)
[2017-08-16 06:03] VITALS: BP 136/70
[2017-08-16] MEDS: LEVOTHYROXINE SODIUM 25 MCG TABLET GT SCH (06:04)
[2017-08-16] MEDS: OMEPRAZOLE 20 MG CAPSULE.DR GT SCH (06:04)
[2017-08-16 08:18] VITALS: BP 109/66
[2017-08-16] MEDS: MECLIZINE HCL 12.5 MG TABLET GT SCH ×2 (09:19→21:03)
[2017-08-16] MEDS: POLYETHYLENE GLYCOL 3350 17 GM POWD.PACK GT SCH (09:20)
[2017-08-16] MEDS: FERROUS SULFATE - FOR SA ONLY 330 MG/7.5 ML UDC GT SCH (09:20)
[2017-08-16] MEDS: METOCLOPRAMIDE HCL 10 MG/10 ML UDC GT SCH ×3 (09:20→17:06)
[2017-08-16] MEDS: HYDROGEN PEROXIDE 480 ML BOTTLE TP SCH ×2 (09:20→21:03)
[2017-08-16] MEDS: Z GUARD REMEDY 4 OZ OINT TP SCH ×4 (09:21→21:03)
[2017-08-16] MEDS: ZINC OXIDE 30 GM TUBE TP SCH ×2 (09:21→21:05)
--- NOTE | 2017-08-16 17:00 | NUR ---
Daughter Cheli notified of temporary room change due to installation of new call light system in the room.
[2017-08-16 17:59] VITALS: BP 109/66
[2017-08-16 18:03] VITALS: BP 118/75
[2017-08-16 20:03] VITALS: BP 113/53
[2017-08-16] MEDS: SENNOSIDES 8.6 MG TABLET GT SCH (21:03)
[2017-08-16] MEDS: CYANOCOBALAMIN 500 MCG TABLET GT SCH (21:03)
[2017-08-16] MEDS: ASCORBIC ACID 500 MG TABLET GT SCH (21:03)
[2017-08-16] MEDS: ZINC SULFATE 220 MG CAPSULE GT SCH (21:03)
[2017-08-16] MEDS: DULOXETINE HCL 30 MG CAPSULE.DR GT SCH (21:05)
[2017-08-17 02:03] VITALS: BP 128/70
[2017-08-17] MEDS: ALBUTEROL HALF STRENGTH 1.25 MG/3 ML VIAL.NEB NEB SCH ×4 (02:06→19:55)
[2017-08-17] MEDS: IPRATROPIUM NEB FS 0.5 MG/2.5 ML AMPUL.NEB NEB SCH ×4 (02:06→19:55)
[2017-08-17] MEDS: LEVOTHYROXINE SODIUM 25 MCG TABLET GT SCH (06:00)
[2017-08-17] MEDS: OMEPRAZOLE 20 MG CAPSULE.DR GT SCH (06:00)
[2017-08-17 06:15] VITALS: BP 120/60
[2017-08-17 08:22] VITALS: BP 117/71
[2017-08-17] MEDS: METOCLOPRAMIDE HCL 10 MG/10 ML UDC GT SCH ×3 (08:36→17:15)
[2017-08-17] MEDS: MECLIZINE HCL 12.5 MG TABLET GT SCH ×2 (08:36→21:18)
[2017-08-17] MEDS: FERROUS SULFATE - FOR SA ONLY 330 MG/7.5 ML UDC GT SCH (08:36)
[2017-08-17] MEDS: Z GUARD REMEDY 4 OZ OINT TP SCH ×4 (08:36→21:18)
[2017-08-17] MEDS: HYDROGEN PEROXIDE 480 ML BOTTLE TP SCH ×2 (08:36→21:18)
[2017-08-17] MEDS: ZINC OXIDE 30 GM TUBE TP SCH ×2 (08:36→21:18)
[2017-08-17] MEDS: POLYETHYLENE GLYCOL 3350 17 GM POWD.PACK GT SCH (08:36)
[2017-08-17 13:42] VITALS: BP 117/71
[2017-08-17 18:38] VITALS: BP 100/63
--- NOTE | 2017-08-17 20:00 | NUR ---
Pt seen and examined by AJ Abbott with order to get consent for Serial excisional debridement of gastrotomy tube stoma.Order also to get Silver nitrate.Order carried out will call daughter to get consent.
[2017-08-17] MEDS: SIMETHICONE SUSP 40 MG/0.6 ML BOTTLE GT PRN (21:18)
[2017-08-17] MEDS: SENNOSIDES 8.6 MG TABLET GT SCH (21:18)
[2017-08-17] MEDS: DULOXETINE HCL 30 MG CAPSULE.DR GT SCH (21:18)
[2017-08-17] MEDS: ASCORBIC ACID 500 MG TABLET GT SCH (21:18)
[2017-08-17] MEDS: CYANOCOBALAMIN 500 MCG TABLET GT SCH (21:18)
[2017-08-17] MEDS: ZINC SULFATE 220 MG CAPSULE GT SCH (21:18)
[2017-08-17 22:48] VITALS: BP 131/72
[2017-08-18 00:17] VITALS: BP 127/68
[2017-08-18] MEDS: ALBUTEROL HALF STRENGTH 1.25 MG/3 ML VIAL.NEB NEB SCH ×4 (00:47→19:27)
[2017-08-18] MEDS: IPRATROPIUM NEB FS 0.5 MG/2.5 ML AMPUL.NEB NEB SCH ×4 (00:47→19:27)
[2017-08-18] MEDS: OMEPRAZOLE 20 MG CAPSULE.DR GT SCH (05:09)
[2017-08-18] MEDS: LEVOTHYROXINE SODIUM 25 MCG TABLET GT SCH (05:09)
[2017-08-18 06:23] VITALS: BP 112/58
[2017-08-18 08:05] VITALS: BP 153/70
[2017-08-18] MEDS: ZINC OXIDE 30 GM TUBE TP SCH ×3 (08:46→20:55)
[2017-08-18] MEDS: POLYETHYLENE GLYCOL 3350 17 GM POWD.PACK GT SCH (08:46)
[2017-08-18] MEDS: FERROUS SULFATE - FOR SA ONLY 330 MG/7.5 ML UDC GT SCH (08:46)
[2017-08-18] MEDS: METOCLOPRAMIDE HCL 10 MG/10 ML UDC GT SCH ×3 (08:46→17:00)
[2017-08-18] MEDS: HYDROGEN PEROXIDE 480 ML BOTTLE TP SCH ×2 (08:46→20:55)
[2017-08-18] MEDS: MECLIZINE HCL 12.5 MG TABLET GT SCH ×2 (08:46→20:55)
[2017-08-18] MEDS: Z GUARD REMEDY 4 OZ OINT TP SCH ×4 (08:46→20:55)
[2017-08-18] MEDS ORDERED: SILVER NITRATE APPLICATOR 1 EA BOX TP ONE (13:30)
[2017-08-18 13:42] VITALS: BP 153/70
[2017-08-18] MEDS ORDERED: ONDANSETRON 4 MG TAB.RAPDIS GT PRN (17:00)
--- NOTE | 2017-08-18 18:20 | NUR ---
IDT meeting held, resident's daughter unable to attend. Reviewed current and new orders, treatment and labs. New order given for PRN Zofran via GT. Spoke with Cheli and obtain telephone consent for serial excisional debridement of GT stoma, witnessed by [address]. Daughter did not want flu vaccine given contraindicated secondary to diagnosis of GBS.
[2017-08-18 18:41] VITALS: BP 128/66
[2017-08-18] MEDS: SIMETHICONE SUSP 40 MG/0.6 ML BOTTLE GT PRN (20:55)
[2017-08-18] MEDS: CYANOCOBALAMIN 500 MCG TABLET GT SCH (20:55)
[2017-08-18] MEDS: ZINC SULFATE 220 MG CAPSULE GT SCH (20:55)
[2017-08-18] MEDS: SENNOSIDES 8.6 MG TABLET GT SCH (20:55)
[2017-08-18] MEDS: ASCORBIC ACID 500 MG TABLET GT SCH (20:55)
[2017-08-18] MEDS: DULOXETINE HCL 30 MG CAPSULE.DR GT SCH (21:02)
[2017-08-18 23:26] VITALS: BP 118/62
[2017-08-19 00:01] VITALS: BP 119/70
[2017-08-19] MEDS: IPRATROPIUM NEB FS 0.5 MG/2.5 ML AMPUL.NEB NEB SCH ×4 (01:13→19:18)
[2017-08-19] MEDS: ALBUTEROL HALF STRENGTH 1.25 MG/3 ML VIAL.NEB NEB SCH ×4 (01:14→19:18)
[2017-08-19] MEDS: LEVOTHYROXINE SODIUM 25 MCG TABLET GT SCH (05:08)
[2017-08-19] MEDS: OMEPRAZOLE 20 MG CAPSULE.DR GT SCH (05:08)
[2017-08-19 06:05] VITALS: BP 120/63
[2017-08-19 07:41] VITALS: BP 135/71
[2017-08-19] MEDS: ZINC OXIDE 30 GM TUBE TP SCH ×4 (08:38→20:49)
[2017-08-19] MEDS: MECLIZINE HCL 12.5 MG TABLET GT SCH ×2 (08:38→20:49)
[2017-08-19] MEDS: POLYETHYLENE GLYCOL 3350 17 GM POWD.PACK GT SCH (08:38)
[2017-08-19] MEDS: FERROUS SULFATE - FOR SA ONLY 330 MG/7.5 ML UDC GT SCH (08:38)
[2017-08-19] MEDS: Z GUARD REMEDY 4 OZ OINT TP SCH ×4 (08:38→20:49)
[2017-08-19] MEDS: METOCLOPRAMIDE HCL 10 MG/10 ML UDC GT SCH ×3 (08:38→16:36)
[2017-08-19] MEDS: HYDROGEN PEROXIDE 480 ML BOTTLE TP SCH ×2 (08:38→20:49)
[2017-08-19] MEDS: FIBERSOURCE HN 1,000 ML BOTTLE GT PRN (08:39)
[2017-08-19 12:00] VITALS: BP 130/73
[2017-08-19 18:19] VITALS: BP 100/52
[2017-08-19] MEDS: ZINC SULFATE 220 MG CAPSULE GT SCH (20:49)
[2017-08-19] MEDS: CYANOCOBALAMIN 500 MCG TABLET GT SCH (20:49)
[2017-08-19] MEDS: ASCORBIC ACID 500 MG TABLET GT SCH (20:49)
[2017-08-19] MEDS: SENNOSIDES 8.6 MG TABLET GT SCH (20:49)
[2017-08-19] MEDS: SIMETHICONE SUSP 40 MG/0.6 ML BOTTLE GT PRN (20:50)
[2017-08-19] MEDS: DULOXETINE HCL 30 MG CAPSULE.DR GT SCH (21:24)
[2017-08-19 22:23] VITALS: BP 125/64
[2017-08-20] MEDS: ALBUTEROL HALF STRENGTH 1.25 MG/3 ML VIAL.NEB NEB SCH ×4 (01:38→19:37)
[2017-08-20] MEDS: IPRATROPIUM NEB FS 0.5 MG/2.5 ML AMPUL.NEB NEB SCH ×4 (01:38→19:37)
[2017-08-20 02:09] VITALS: BP 121/72
[2017-08-20] MEDS: FIBERSOURCE HN 1,000 ML BOTTLE GT PRN (02:10)
[2017-08-20] MEDS: OMEPRAZOLE 20 MG CAPSULE.DR GT SCH (05:17)
[2017-08-20] MEDS: MAGNESIUM HYDROXIDE 30 ML UDC GT PRN (05:17)
[2017-08-20] MEDS: LEVOTHYROXINE SODIUM 25 MCG TABLET GT SCH (05:17)
[2017-08-20] MEDS: SIMETHICONE SUSP 40 MG/0.6 ML BOTTLE GT PRN (05:17)
[2017-08-20 06:22] VITALS: BP 103/58
[2017-08-20] MEDS: POLYETHYLENE GLYCOL 3350 17 GM POWD.PACK GT SCH (08:50)
[2017-08-20] MEDS: FERROUS SULFATE - FOR SA ONLY 330 MG/7.5 ML UDC GT SCH (08:50)
[2017-08-20] MEDS: ZINC OXIDE 30 GM TUBE TP SCH ×4 (08:50→21:16)
[2017-08-20] MEDS: MECLIZINE HCL 12.5 MG TABLET GT SCH ×2 (08:50→21:16)
[2017-08-20] MEDS: HYDROGEN PEROXIDE 480 ML BOTTLE TP SCH ×2 (08:50→21:16)
[2017-08-20] MEDS: METOCLOPRAMIDE HCL 10 MG/10 ML UDC GT SCH ×3 (08:50→17:57)
[2017-08-20] MEDS: Z GUARD REMEDY 4 OZ OINT TP SCH ×4 (08:50→21:16)
[2017-08-20 14:26] VITALS: BP 103/58
[2017-08-20 18:33] VITALS: BP 112/69
[2017-08-20 20:00] VITALS: BP 124/75
[2017-08-20] MEDS: CYANOCOBALAMIN 500 MCG TABLET GT SCH (21:16)
[2017-08-20] MEDS: ZINC SULFATE 220 MG CAPSULE GT SCH (21:16)
[2017-08-20] MEDS: ASCORBIC ACID 500 MG TABLET GT SCH (21:16)
[2017-08-20] MEDS: DULOXETINE HCL 30 MG CAPSULE.DR GT SCH (21:16)
[2017-08-20] MEDS: SENNOSIDES 8.6 MG TABLET GT SCH (21:16)
[2017-08-21 00:43] VITALS: BP 116/58
[2017-08-21] MEDS: ALBUTEROL HALF STRENGTH 1.25 MG/3 ML VIAL.NEB NEB SCH ×4 (01:22→19:11)
[2017-08-21] MEDS: IPRATROPIUM NEB FS 0.5 MG/2.5 ML AMPUL.NEB NEB SCH ×4 (01:22→19:11)
[2017-08-21] MEDS: LEVOTHYROXINE SODIUM 25 MCG TABLET GT SCH (05:43)
[2017-08-21] MEDS: OMEPRAZOLE 20 MG CAPSULE.DR GT SCH (05:43)
[2017-08-21] MEDS: FIBERSOURCE HN 1,000 ML BOTTLE GT PRN ×2 (05:44→23:38)
[2017-08-21 06:21] VITALS: BP 124/60
--- NOTE | 2017-08-21 07:55 | NUR ---
RT PATIENT REC'D TRACHED ON [facility] VENT WITH SETTINGS SET BY TOLERATED WELL. VENT ALARMS CHECKED + AUDIBLE. TRACH SECURE AND IN PROPER POSITION. CUFF CHECKED DRUM STENCILER. DIM COARSE BILAT B/S. SX'D WITH MOD AMT PALE SEMITHICK SECRETIONS. PATIENT APPEARS COMFORTABLE AND IN NO DISTRESS. AMBU BAG AND BACK UP TRACH AT BEDSIDE. CONT CURRENT PLAN OF RESP CARE. Addendum: 08/21/17 at 1207 by RUDDY ISSA RT Amended: Links added.
[2017-08-21] MEDS: HYDROGEN PEROXIDE 480 ML BOTTLE TP SCH ×2 (09:00→20:28)
[2017-08-21] MEDS: ZINC OXIDE 30 GM TUBE TP SCH ×4 (09:00→20:29)
[2017-08-21] MEDS: Z GUARD REMEDY 4 OZ OINT TP SCH ×3 (09:00→20:28)
[2017-08-21] MEDS: POLYETHYLENE GLYCOL 3350 17 GM POWD.PACK GT SCH (09:14)
[2017-08-21] MEDS: FERROUS SULFATE - FOR SA ONLY 330 MG/7.5 ML UDC GT SCH (09:14)
[2017-08-21] MEDS: MECLIZINE HCL 12.5 MG TABLET GT SCH ×2 (09:14→20:28)
[2017-08-21] MEDS: METOCLOPRAMIDE HCL 10 MG/10 ML UDC GT SCH ×3 (09:14→16:25)
[2017-08-21 12:00] VITALS: BP 130/76
[2017-08-21 12:52] VITALS: BP 139/78
[2017-08-21 16:26] VITALS: BP 102/71
[2017-08-21] MEDS: SENNOSIDES 8.6 MG TABLET GT SCH (20:28)
[2017-08-21] MEDS: ZINC SULFATE 220 MG CAPSULE GT SCH (20:28)
[2017-08-21] MEDS: CYANOCOBALAMIN 500 MCG TABLET GT SCH (20:28)
[2017-08-21] MEDS: ASCORBIC ACID 500 MG TABLET GT SCH (20:28)
[2017-08-21] MEDS: DULOXETINE HCL 30 MG CAPSULE.DR GT SCH (21:39)
[2017-08-22 00:59] VITALS: BP 130/60
[2017-08-22] MEDS: ALBUTEROL HALF STRENGTH 1.25 MG/3 ML VIAL.NEB NEB SCH ×4 (01:31→19:11)
[2017-08-22] MEDS: IPRATROPIUM NEB FS 0.5 MG/2.5 ML AMPUL.NEB NEB SCH ×4 (01:31→19:11)
[2017-08-22] MEDS: LEVOTHYROXINE SODIUM 25 MCG TABLET GT SCH (05:33)
[2017-08-22] MEDS: OMEPRAZOLE 20 MG CAPSULE.DR GT SCH (05:33)
[2017-08-22 06:07] VITALS: BP 125/62
[2017-08-22 08:06] VITALS: BP 129/70
[2017-08-22] MEDS: MECLIZINE HCL 12.5 MG TABLET GT SCH ×2 (08:42→20:40)
[2017-08-22] MEDS: POLYETHYLENE GLYCOL 3350 17 GM POWD.PACK GT SCH (08:43)
[2017-08-22] MEDS: FERROUS SULFATE - FOR SA ONLY 330 MG/7.5 ML UDC GT SCH (08:43)
[2017-08-22] MEDS: Z GUARD REMEDY 4 OZ OINT TP SCH ×2 (08:44→20:40)
[2017-08-22] MEDS: METOCLOPRAMIDE HCL 10 MG/10 ML UDC GT SCH ×3 (08:44→16:49)
[2017-08-22] MEDS: ZINC OXIDE 30 GM TUBE TP SCH ×4 (08:44→20:40)
[2017-08-22] MEDS: HYDROGEN PEROXIDE 480 ML BOTTLE TP SCH ×2 (10:15→20:40)
[2017-08-22 13:48] VITALS: BP 130/74
[2017-08-22] MEDS: FIBERSOURCE HN 1,000 ML BOTTLE GT PRN (18:47)
[2017-08-22 18:59] VITALS: BP 104/58
[2017-08-22 19:54] VITALS: BP 121/78
[2017-08-22] MEDS: SENNOSIDES 8.6 MG TABLET GT SCH (20:40)
[2017-08-22] MEDS: ASCORBIC ACID 500 MG TABLET GT SCH (20:40)
[2017-08-22] MEDS: CYANOCOBALAMIN 500 MCG TABLET GT SCH (20:40)
[2017-08-22] MEDS: ZINC SULFATE 220 MG CAPSULE GT SCH (20:40)
[2017-08-22] MEDS: DULOXETINE HCL 30 MG CAPSULE.DR GT SCH (22:07)
[2017-08-23 00:52] VITALS: BP 134/60
[2017-08-23] MEDS: IPRATROPIUM NEB FS 0.5 MG/2.5 ML AMPUL.NEB NEB SCH ×4 (01:36→19:50)
[2017-08-23] MEDS: ALBUTEROL HALF STRENGTH 1.25 MG/3 ML VIAL.NEB NEB SCH ×4 (01:37→19:50)
[2017-08-23] MEDS: LEVOTHYROXINE SODIUM 25 MCG TABLET GT SCH (05:10)
[2017-08-23] MEDS: OMEPRAZOLE 20 MG CAPSULE.DR GT SCH (05:10)
[2017-08-23 06:21] VITALS: BP 124/60
[2017-08-23 08:11] VITALS: BP 110/66
[2017-08-23] MEDS: Z GUARD REMEDY 4 OZ OINT TP SCH ×2 (09:01→20:44)
[2017-08-23] MEDS: HYDROGEN PEROXIDE 480 ML BOTTLE TP SCH ×2 (09:01→20:44)
[2017-08-23] MEDS: ZINC OXIDE 30 GM TUBE TP SCH ×4 (09:02→20:44)
[2017-08-23] MEDS: POLYETHYLENE GLYCOL 3350 17 GM POWD.PACK GT SCH (09:03)
[2017-08-23] MEDS: METOCLOPRAMIDE HCL 10 MG/10 ML UDC GT SCH ×3 (09:03→16:43)
[2017-08-23] MEDS: FERROUS SULFATE - FOR SA ONLY 330 MG/7.5 ML UDC GT SCH (09:04)
[2017-08-23] MEDS: MECLIZINE HCL 12.5 MG TABLET GT SCH ×2 (09:05→20:43)
--- NOTE | 2017-08-23 09:50 | NUR ---
Seen and examined by Dr. Charla Fontanez, reported that patient had x1 episode of vomiting last week, no further vomiting episode. NNO given.
[2017-08-23 12:00] VITALS: BP 110/66
[2017-08-23] MEDS: FIBERSOURCE HN 1,000 ML BOTTLE GT PRN (15:21)
[2017-08-23 18:00] VITALS: BP 114/65
[2017-08-23 20:24] VITALS: BP 127/74
[2017-08-23] MEDS: CYANOCOBALAMIN 500 MCG TABLET GT SCH (20:43)
[2017-08-23] MEDS: SENNOSIDES 8.6 MG TABLET GT SCH (20:43)
[2017-08-23] MEDS: ZINC SULFATE 220 MG CAPSULE GT SCH (20:43)
[2017-08-23] MEDS: ASCORBIC ACID 500 MG TABLET GT SCH (20:43)
--- NOTE | 2017-08-23 21:30 | NUR ---
Seen by Dr. Burton agency service coordinator,toenails cutting done.
[2017-08-23] MEDS: DULOXETINE HCL 30 MG CAPSULE.DR GT SCH (21:43)
[2017-08-24 00:32] VITALS: BP 130/64
[2017-08-24] MEDS: ALBUTEROL HALF STRENGTH 1.25 MG/3 ML VIAL.NEB NEB SCH ×4 (01:26→20:04)
[2017-08-24] MEDS: IPRATROPIUM NEB FS 0.5 MG/2.5 ML AMPUL.NEB NEB SCH ×4 (01:26→20:04)
[2017-08-24] MEDS: OMEPRAZOLE 20 MG CAPSULE.DR GT SCH (05:44)
[2017-08-24] MEDS: LEVOTHYROXINE SODIUM 25 MCG TABLET GT SCH (05:44)
[2017-08-24 06:54] VITALS: BP 124/60
[2017-08-24 08:00] VITALS: BP 147/79
[2017-08-24] MEDS: FERROUS SULFATE - FOR SA ONLY 330 MG/7.5 ML UDC GT SCH (08:51)
[2017-08-24] MEDS: MECLIZINE HCL 12.5 MG TABLET GT SCH ×2 (08:51→20:34)
[2017-08-24] MEDS: POLYETHYLENE GLYCOL 3350 17 GM POWD.PACK GT SCH (08:52)
[2017-08-24] MEDS: HYDROGEN PEROXIDE 480 ML BOTTLE TP SCH ×2 (08:56→20:36)
[2017-08-24] MEDS: Z GUARD REMEDY 4 OZ OINT TP SCH ×2 (08:56→20:36)
[2017-08-24] MEDS: METOCLOPRAMIDE HCL 10 MG/10 ML UDC GT SCH ×3 (08:56→17:00)
[2017-08-24] MEDS: ZINC OXIDE 30 GM TUBE TP SCH ×3 (08:56→20:36)
[2017-08-24] MEDS: FIBERSOURCE HN 1,000 ML BOTTLE GT PRN (17:31)
--- NOTE | 2017-08-24 17:32 | NUR ---
DYER ASSISTANT Leticia came to do excisional debridement and applied silver nitrate on the GT site granulation tissue. Pt tolerated procedure well.
[2017-08-24 18:11] VITALS: BP 147/79
[2017-08-24 20:25] VITALS: BP 118/66
[2017-08-24] MEDS: CYANOCOBALAMIN 500 MCG TABLET GT SCH (20:34)
[2017-08-24] MEDS: SENNOSIDES 8.6 MG TABLET GT SCH (20:34)
[2017-08-24] MEDS: ASCORBIC ACID 500 MG TABLET GT SCH (20:35)
[2017-08-24] MEDS: ZINC SULFATE 220 MG CAPSULE GT SCH (20:35)
[2017-08-24] MEDS: DULOXETINE HCL 30 MG CAPSULE.DR GT SCH (22:00)
[2017-08-25 00:09] VITALS: BP 121/68
[2017-08-25] MEDS: ALBUTEROL HALF STRENGTH 1.25 MG/3 ML VIAL.NEB NEB SCH ×4 (02:05→20:22)
[2017-08-25] MEDS: IPRATROPIUM NEB FS 0.5 MG/2.5 ML AMPUL.NEB NEB SCH ×4 (02:05→20:22)
[2017-08-25] MEDS: OMEPRAZOLE 20 MG CAPSULE.DR GT SCH (05:55)
[2017-08-25] MEDS: LEVOTHYROXINE SODIUM 25 MCG TABLET GT SCH (05:55)
[2017-08-25 06:15] VITALS: BP 133/75
[2017-08-25 07:57] VITALS: BP 127/71
[2017-08-25] MEDS: MECLIZINE HCL 12.5 MG TABLET GT SCH ×2 (08:39→21:38)
[2017-08-25] MEDS: FERROUS SULFATE - FOR SA ONLY 330 MG/7.5 ML UDC GT SCH (08:40)
[2017-08-25] MEDS: SIMETHICONE SUSP 40 MG/0.6 ML BOTTLE GT PRN (08:40)
[2017-08-25] MEDS: HYDROGEN PEROXIDE 480 ML BOTTLE TP SCH ×2 (08:40→21:38)
[2017-08-25] MEDS: ZINC OXIDE 30 GM TUBE TP SCH ×2 (08:40→21:39)
[2017-08-25] MEDS: POLYETHYLENE GLYCOL 3350 17 GM POWD.PACK GT SCH (08:40)
[2017-08-25] MEDS: METOCLOPRAMIDE HCL 10 MG/10 ML UDC GT SCH ×3 (08:40→17:33)
[2017-08-25] MEDS: Z GUARD REMEDY 4 OZ OINT TP SCH ×2 (08:40→21:38)
[2017-08-25 16:37] VITALS: BP 127/71
[2017-08-25 18:46] VITALS: BP 125/68
[2017-08-25 19:54] VITALS: BP 126/70
[2017-08-25] MEDS: ZINC SULFATE 220 MG CAPSULE GT SCH (21:38)
[2017-08-25] MEDS: SENNOSIDES 8.6 MG TABLET GT SCH (21:38)
[2017-08-25] MEDS: ASCORBIC ACID 500 MG TABLET GT SCH (21:38)
[2017-08-25] MEDS: CYANOCOBALAMIN 500 MCG TABLET GT SCH (21:38)
[2017-08-25] MEDS: DULOXETINE HCL 30 MG CAPSULE.DR GT SCH (21:39)
[2017-08-26 00:30] VITALS: BP 133/81
[2017-08-26] MEDS: ALBUTEROL HALF STRENGTH 1.25 MG/3 ML VIAL.NEB NEB SCH ×4 (02:03→19:14)
[2017-08-26] MEDS: IPRATROPIUM NEB FS 0.5 MG/2.5 ML AMPUL.NEB NEB SCH ×4 (02:03→19:14)
[2017-08-26] MEDS: OMEPRAZOLE 20 MG CAPSULE.DR GT SCH (05:10)
[2017-08-26] MEDS: LEVOTHYROXINE SODIUM 25 MCG TABLET GT SCH (05:10)
[2017-08-26 06:18] VITALS: BP 104/72
[2017-08-26] MEDS: FIBERSOURCE HN 1,000 ML BOTTLE GT PRN (06:43)
[2017-08-26 08:00] VITALS: BP 132/70
[2017-08-26] MEDS: HYDROGEN PEROXIDE 480 ML BOTTLE TP SCH ×2 (08:39→21:11)
[2017-08-26] MEDS: POLYETHYLENE GLYCOL 3350 17 GM POWD.PACK GT SCH (08:39)
[2017-08-26] MEDS: MECLIZINE HCL 12.5 MG TABLET GT SCH ×2 (08:39→21:11)
[2017-08-26] MEDS: METOCLOPRAMIDE HCL 10 MG/10 ML UDC GT SCH ×3 (08:39→17:39)
[2017-08-26] MEDS: FERROUS SULFATE - FOR SA ONLY 330 MG/7.5 ML UDC GT SCH (08:39)
[2017-08-26] MEDS: Z GUARD REMEDY 4 OZ OINT TP SCH ×2 (08:39→21:11)
[2017-08-26] MEDS: ZINC OXIDE 30 GM TUBE TP SCH ×2 (08:39→21:11)
[2017-08-26 12:00] VITALS: BP 119/62
--- NOTE | 2017-08-26 15:00 | NUR ---
Resident's daughter visiting and stated that patient r eye is red, inform daughter Cheli that she had a shower and right after I noted that her eyes were slightly red due to irritation but will monitor and notify MD if it persist. Endorsed.
[2017-08-26 18:00] VITALS: BP 110/59
[2017-08-26 20:10] VITALS: BP 101/62
[2017-08-26] MEDS: ZINC SULFATE 220 MG CAPSULE GT SCH (21:11)
[2017-08-26] MEDS: CYANOCOBALAMIN 500 MCG TABLET GT SCH (21:11)
[2017-08-26] MEDS: ASCORBIC ACID 500 MG TABLET GT SCH (21:11)
[2017-08-26] MEDS: SENNOSIDES 8.6 MG TABLET GT SCH (21:11)
[2017-08-26] MEDS: DULOXETINE HCL 30 MG CAPSULE.DR GT SCH (21:11)
[2017-08-27 00:30] VITALS: BP 125/69
[2017-08-27] MEDS: FIBERSOURCE HN 1,000 ML BOTTLE GT PRN (02:09)
[2017-08-27] MEDS: ALBUTEROL HALF STRENGTH 1.25 MG/3 ML VIAL.NEB NEB SCH ×4 (02:25→19:05)
[2017-08-27] MEDS: IPRATROPIUM NEB FS 0.5 MG/2.5 ML AMPUL.NEB NEB SCH ×4 (02:25→19:05)
[2017-08-27] MEDS: LEVOTHYROXINE SODIUM 25 MCG TABLET GT SCH (05:31)
[2017-08-27] MEDS: OMEPRAZOLE 20 MG CAPSULE.DR GT SCH (05:31)
[2017-08-27 06:14] VITALS: BP 114/67
[2017-08-27] MEDS: MECLIZINE HCL 12.5 MG TABLET GT SCH ×2 (08:20→20:24)
[2017-08-27] MEDS: ZINC OXIDE 30 GM TUBE TP SCH ×2 (08:24→20:25)
[2017-08-27] MEDS: METOCLOPRAMIDE HCL 10 MG/10 ML UDC GT SCH ×3 (08:24→16:57)
[2017-08-27] MEDS: POLYETHYLENE GLYCOL 3350 17 GM POWD.PACK GT SCH (08:24)
[2017-08-27] MEDS: Z GUARD REMEDY 4 OZ OINT TP SCH ×2 (08:24→20:25)
[2017-08-27] MEDS: FERROUS SULFATE - FOR SA ONLY 330 MG/7.5 ML UDC GT SCH (08:24)
[2017-08-27] MEDS: HYDROGEN PEROXIDE 480 ML BOTTLE TP SCH ×2 (08:24→20:25)
[2017-08-27 08:33] VITALS: BP 117/71
[2017-08-27 12:00] VITALS: BP 121/74
[2017-08-27] MEDS: ACETAMINOPHEN 650 MG/20 ML UDC- FOR SA PATIENTS ONLY GT PRN (14:55)
--- NOTE | 2017-08-27 16:21 | NUR ---
RN NOTES GT DRESSING CHANGED. STOMA ADHESIVE WAS NOT APPLIED. FOLLOWING ASSESSMENT OF GT SITE, DETERMINED THAT REMOVAL OF PREVIOUS DRESSING MAY LEAD TO DISLODGEMENT OF GT. WILL F/U WITH MOTORCYCLE TESTER.
[2017-08-27 18:00] VITALS: BP 103/56
[2017-08-27 20:17] VITALS: BP 136/78
[2017-08-27] MEDS: CYANOCOBALAMIN 500 MCG TABLET GT SCH (20:23)
[2017-08-27] MEDS: SENNOSIDES 8.6 MG TABLET GT SCH (20:24)
[2017-08-27] MEDS: ASCORBIC ACID 500 MG TABLET GT SCH (20:24)
[2017-08-27] MEDS: ZINC SULFATE 220 MG CAPSULE GT SCH (20:25)
[2017-08-27] MEDS: DULOXETINE HCL 30 MG CAPSULE.DR GT SCH (21:27)
[2017-08-28 00:10] VITALS: BP 118/71
[2017-08-28] MEDS: ALBUTEROL HALF STRENGTH 1.25 MG/3 ML VIAL.NEB NEB SCH ×4 (00:56→19:57)
[2017-08-28] MEDS: IPRATROPIUM NEB FS 0.5 MG/2.5 ML AMPUL.NEB NEB SCH ×4 (00:56→19:57)
[2017-08-28] MEDS: OMEPRAZOLE 20 MG CAPSULE.DR GT SCH (05:21)
[2017-08-28] MEDS: LEVOTHYROXINE SODIUM 25 MCG TABLET GT SCH (05:21)
[2017-08-28 06:23] VITALS: BP 115/69
[2017-08-28 07:55] VITALS: BP 104/40
[2017-08-28] MEDS: ZINC OXIDE 30 GM TUBE TP SCH ×2 (09:10→20:26)
[2017-08-28] MEDS: POLYETHYLENE GLYCOL 3350 17 GM POWD.PACK GT SCH (09:10)
[2017-08-28] MEDS: MECLIZINE HCL 12.5 MG TABLET GT SCH ×2 (09:10→20:24)
[2017-08-28] MEDS: FERROUS SULFATE - FOR SA ONLY 330 MG/7.5 ML UDC GT SCH (09:10)
[2017-08-28] MEDS: Z GUARD REMEDY 4 OZ OINT TP SCH ×2 (09:10→20:26)
[2017-08-28] MEDS: HYDROGEN PEROXIDE 480 ML BOTTLE TP SCH ×2 (09:10→20:26)
[2017-08-28] MEDS: METOCLOPRAMIDE HCL 10 MG/10 ML UDC GT SCH ×3 (09:10→17:00)
--- NOTE | 2017-08-28 13:33 | NUR ---
SEEN AND EXAMINED BY AJ ROTHMAN WITH NO NEW ORDERS AT THIS TIME.
[2017-08-28] MEDS: ACETAMINOPHEN 650 MG/20 ML UDC- FOR SA PATIENTS ONLY GT PRN (18:53)
--- NOTE | 2017-08-28 18:56 | NUR ---
Pt was desatting to 79%, suctioned pt and obtained a small amount of pale yellowish secretions. T 100 F. The RT titrated pt's FiO2 to keep sat above 92%. Notified NAIL CUTTER Deneen Hankins. Received order to do CXR and CBC. Notified pt's daughter.
[2017-08-28 19:20] VITALS: BP 148/90
[2017-08-28 19:55] VITALS: BP 118/72
[2017-08-28] MEDS: ASCORBIC ACID 500 MG TABLET GT SCH (20:25)
[2017-08-28] MEDS: ZINC SULFATE 220 MG CAPSULE GT SCH (20:25)
[2017-08-28] MEDS: CYANOCOBALAMIN 500 MCG TABLET GT SCH (20:25)
[2017-08-28] MEDS: SENNOSIDES 8.6 MG TABLET GT SCH (20:25)
[2017-08-28 20:33] LABS: BASOPHILS % (AUTO) 0.3 % (0.0-2.0); EOSINOPHILS # (AUTO) 0.5 /CMM (0.0-0.7); EOSINOPHILS % (AUTO) 3.7 % (0.0-6.0); HEMATOCRIT 32 % (33-45); HEMOGLOBIN 10.4 g/dL (11.5-14.8); LYMPHOCYTES # (AUTO) 2.5 /CMM (0.8-4.8); LYMPHOCYTES % (AUTO) 18.3 % (20.0-44.0); MEAN CORPUSCULAR HEMOGLOBIN 30 PG (26.0-33.0); MEAN CORPUSCULAR HGB CONC 33 g/dl (31.0-36.0); MEAN CORPUSCULAR VOLUME 90 fL (82-100); MONOCYTES # (AUTO) 1.2 /CMM (0.1-1.30); MONOCYTES % (AUTO) 8.6 % (2.0-12.0); NEUTROPHILS # (AUTO) 9.3 /CMM (1.8-8.9); NEUTROPHILS % (AUTO) 69.1 % (43.0-81.0); PLATELET COUNT (AUTO) 321 /CMM (150-450); RDW COEFFICIENT OF VARIATION 15.3 (11.5-15.0); RED BLOOD CELL COUNT(AUTO) 3.53 MIL/uL (4.0-5.2); WHITE BLOOD COUNT (AUTO) 13.5 K/uL (4.3-11.0)
[2017-08-28] MEDS: DULOXETINE HCL 30 MG CAPSULE.DR GT SCH (21:23)
[2017-08-29 00:32] VITALS: BP 129/82
[2017-08-29] MEDS: IPRATROPIUM NEB FS 0.5 MG/2.5 ML AMPUL.NEB NEB SCH ×4 (02:08→19:45)
[2017-08-29] MEDS: ALBUTEROL HALF STRENGTH 1.25 MG/3 ML VIAL.NEB NEB SCH ×4 (02:08→19:45)
[2017-08-29] MEDS: LEVOTHYROXINE SODIUM 25 MCG TABLET GT SCH (05:58)
[2017-08-29] MEDS: OMEPRAZOLE 20 MG CAPSULE.DR GT SCH (05:58)
[2017-08-29] MEDS: FIBERSOURCE HN 1,000 ML BOTTLE GT PRN (06:20)
[2017-08-29 06:35] VITALS: BP 118/82
--- NOTE | 2017-08-29 08:48 | NUR ---
Seen by Dr. John. Notified him that pt had a temp of 100 F last night, LIFE INSURANCE SALESPERSON Deneen Hankins ordered CBC and CXR. Relayed CBC and CXR results to him. He ordered to also do UA.
[2017-08-29] MEDS: ZINC OXIDE 30 GM TUBE TP SCH ×2 (09:30→20:23)
[2017-08-29] MEDS: FERROUS SULFATE - FOR SA ONLY 330 MG/7.5 ML UDC GT SCH (09:30)
[2017-08-29] MEDS: Z GUARD REMEDY 4 OZ OINT TP SCH ×2 (09:30→20:23)
[2017-08-29] MEDS: MECLIZINE HCL 12.5 MG TABLET GT SCH ×2 (09:30→20:22)
[2017-08-29] MEDS: POLYETHYLENE GLYCOL 3350 17 GM POWD.PACK GT SCH (09:30)
[2017-08-29] MEDS: METOCLOPRAMIDE HCL 10 MG/10 ML UDC GT SCH ×3 (09:30→17:00)
[2017-08-29] MEDS: HYDROGEN PEROXIDE 480 ML BOTTLE TP SCH ×2 (09:30→20:23)
[2017-08-29 10:00] VITALS: BP 148/90
[2017-08-29 13:03] VITALS: BP 118/61
--- NOTE | 2017-08-29 16:55 | NUR ---
Notified pt's daughter Cheli that Dr. John ordered UA. She expressed appreciation for call.
[2017-08-29 17:31] LABS: APPEARANCE,URINE SL CLOUDY (CLEAR); BILIRUBIN,URINE NEGATIVE (NEGATIVE); BLOOD, URINE NEGATIVE Ery/uL (NEGATIVE); COLOR,URINE YELLOW (YELLOW); KETONES,URINE NEGATIVE (NEGATIVE); LEUKOCYTE ESTERASE ,URINE NEGATIVE (NEGATIVE); NITRITE, URINE NEGATIVE (NEGATIVE); PH,URINE 5.5 (5.0-8.0); PROTEIN,URINE NEGATIVE (NEGATIVE); UGLUCOSE NEGATIVE (NEGATIVE); UROBILINOGEN,URINE 0.2 EU/dL (0.2)
[2017-08-29 18:39] VITALS: BP 126/76
[2017-08-29] MEDS: CYANOCOBALAMIN 500 MCG TABLET GT SCH (20:21)
[2017-08-29] MEDS: SENNOSIDES 8.6 MG TABLET GT SCH (20:22)
[2017-08-29] MEDS: ASCORBIC ACID 500 MG TABLET GT SCH (20:23)
[2017-08-29] MEDS: ZINC SULFATE 220 MG CAPSULE GT SCH (20:23)
[2017-08-29 20:36] VITALS: BP 110/67
[2017-08-29] MEDS: DULOXETINE HCL 30 MG CAPSULE.DR GT SCH (22:18)
[2017-08-30 00:35] VITALS: BP 133/82
[2017-08-30] MEDS: IPRATROPIUM NEB FS 0.5 MG/2.5 ML AMPUL.NEB NEB SCH ×4 (02:11→20:06)
[2017-08-30] MEDS: ALBUTEROL HALF STRENGTH 1.25 MG/3 ML VIAL.NEB NEB SCH ×4 (02:11→20:06)
[2017-08-30] MEDS: FIBERSOURCE HN 1,000 ML BOTTLE GT PRN ×2 (03:10→22:19)
[2017-08-30] MEDS: OMEPRAZOLE 20 MG CAPSULE.DR GT SCH (05:33)
[2017-08-30] MEDS: LEVOTHYROXINE SODIUM 25 MCG TABLET GT SCH (05:33)
[2017-08-30 06:47] VITALS: BP 135/78
[2017-08-30 07:44] VITALS: BP 106/59
[2017-08-30] MEDS: ZINC OXIDE 30 GM TUBE TP SCH ×2 (09:00→21:13)
[2017-08-30] MEDS: HYDROGEN PEROXIDE 480 ML BOTTLE TP SCH ×2 (09:00→21:12)
[2017-08-30] MEDS: Z GUARD REMEDY 4 OZ OINT TP SCH ×2 (09:00→21:13)
[2017-08-30] MEDS: POLYETHYLENE GLYCOL 3350 17 GM POWD.PACK GT SCH (09:27)
[2017-08-30] MEDS: FERROUS SULFATE - FOR SA ONLY 330 MG/7.5 ML UDC GT SCH (09:27)
[2017-08-30] MEDS: MECLIZINE HCL 12.5 MG TABLET GT SCH ×2 (09:27→21:12)
[2017-08-30] MEDS: METOCLOPRAMIDE HCL 10 MG/10 ML UDC GT SCH ×3 (09:27→16:33)
[2017-08-30 14:37] VITALS: BP 125/80
--- NOTE | 2017-08-30 15:20 | NUR ---
RN Notes: Patient's right knee noted to be swollen. No facial grimaces noted when patient assessed and knee bent by RN . Deneen barron. no new orders.
--- NOTE | 2017-08-30 15:25 | NUR ---
SEEN AND EXAMINED BY AJ ROTHMAN WITH NO NEW ORDERS AT THIS TIME.
[2017-08-30 18:28] VITALS: BP 124/75
[2017-08-30] MEDS: SENNOSIDES 8.6 MG TABLET GT SCH (21:12)
[2017-08-30] MEDS: CYANOCOBALAMIN 500 MCG TABLET GT SCH (21:12)
[2017-08-30] MEDS: ZINC SULFATE 220 MG CAPSULE GT SCH (21:12)
[2017-08-30] MEDS: ASCORBIC ACID 500 MG TABLET GT SCH (21:12)
[2017-08-30] MEDS: DULOXETINE HCL 30 MG CAPSULE.DR GT SCH (21:13)
[2017-08-31 00:15] VITALS: BP 134/80
[2017-08-31] MEDS: IPRATROPIUM NEB FS 0.5 MG/2.5 ML AMPUL.NEB NEB SCH ×4 (01:35→19:59)
[2017-08-31] MEDS: ALBUTEROL HALF STRENGTH 1.25 MG/3 ML VIAL.NEB NEB SCH ×4 (01:35→19:59)
[2017-08-31] MEDS: LEVOTHYROXINE SODIUM 25 MCG TABLET GT SCH (05:24)
[2017-08-31] MEDS: OMEPRAZOLE 20 MG CAPSULE.DR GT SCH (05:24)
[2017-08-31 06:21] VITALS: BP 138/59
[2017-08-31 07:51] VITALS: BP 110/57
[2017-08-31] MEDS: POLYETHYLENE GLYCOL 3350 17 GM POWD.PACK GT SCH (09:00)
[2017-08-31] MEDS: FERROUS SULFATE - FOR SA ONLY 330 MG/7.5 ML UDC GT SCH (09:00)
[2017-08-31] MEDS: HYDROGEN PEROXIDE 480 ML BOTTLE TP SCH ×2 (09:00→20:26)
[2017-08-31] MEDS: Z GUARD REMEDY 4 OZ OINT TP SCH ×2 (09:00→20:26)
[2017-08-31] MEDS: MECLIZINE HCL 12.5 MG TABLET GT SCH ×2 (09:00→20:26)
[2017-08-31] MEDS: ZINC OXIDE 30 GM TUBE TP SCH ×2 (09:00→20:27)
[2017-08-31] MEDS: METOCLOPRAMIDE HCL 10 MG/10 ML UDC GT SCH ×3 (09:00→17:55)
[2017-08-31 20:07] VITALS: BP 100/60
[2017-08-31] MEDS: CYANOCOBALAMIN 500 MCG TABLET GT SCH (20:25)
[2017-08-31] MEDS: ASCORBIC ACID 500 MG TABLET GT SCH (20:26)
[2017-08-31] MEDS: ZINC SULFATE 220 MG CAPSULE GT SCH (20:26)
[2017-08-31] MEDS: SENNOSIDES 8.6 MG TABLET GT SCH (20:26)
[2017-08-31] MEDS: DULOXETINE HCL 30 MG CAPSULE.DR GT SCH (21:58)
[2017-09-01 00:33] VITALS: BP 121/75
[2017-09-01] MEDS: IPRATROPIUM NEB FS 0.5 MG/2.5 ML AMPUL.NEB NEB SCH ×3 (01:34→20:21)
[2017-09-01] MEDS: ALBUTEROL HALF STRENGTH 1.25 MG/3 ML VIAL.NEB NEB SCH ×3 (01:34→20:21)
[2017-09-01 07:10] VITALS: BP 129/71
[2017-09-01] MEDS: FERROUS SULFATE - FOR SA ONLY 330 MG/7.5 ML UDC GT SCH (08:56)
[2017-09-01] MEDS: MECLIZINE HCL 12.5 MG TABLET GT SCH ×2 (08:56→21:22)
[2017-09-01] MEDS: POLYETHYLENE GLYCOL 3350 17 GM POWD.PACK GT SCH (08:57)
[2017-09-01] MEDS: Z GUARD REMEDY 4 OZ OINT TP SCH ×2 (08:58→21:22)
[2017-09-01] MEDS: METOCLOPRAMIDE HCL 10 MG/10 ML UDC GT SCH ×3 (08:58→17:12)
[2017-09-01] MEDS: ZINC OXIDE 30 GM TUBE TP SCH (08:59)
[2017-09-01] MEDS: HYDROGEN PEROXIDE 480 ML BOTTLE TP SCH ×2 (10:30→21:22)
[2017-09-01 18:31] VITALS: BP 129/71
[2017-09-01 19:20] VITALS: BP 119/70
[2017-09-01] MEDS: CYANOCOBALAMIN 500 MCG TABLET GT SCH (21:22)
[2017-09-01] MEDS: ASCORBIC ACID 500 MG TABLET GT SCH (21:22)
[2017-09-01] MEDS: DULOXETINE HCL 30 MG CAPSULE.DR GT SCH (21:22)
[2017-09-01] MEDS: ZINC SULFATE 220 MG CAPSULE GT SCH (21:22)
[2017-09-01] MEDS: SENNOSIDES 8.6 MG TABLET GT SCH (21:22)
[2017-09-02 00:30] VITALS: BP 108/57
[2017-09-02] MEDS: IPRATROPIUM NEB FS 0.5 MG/2.5 ML AMPUL.NEB NEB SCH ×4 (01:22→19:58)
[2017-09-02] MEDS: ALBUTEROL HALF STRENGTH 1.25 MG/3 ML VIAL.NEB NEB SCH ×4 (01:22→19:58)
[2017-09-02] MEDS: ACETAMINOPHEN 650 MG/20 ML UDC- FOR SA PATIENTS ONLY GT PRN (02:05)
[2017-09-02] MEDS: LEVOTHYROXINE SODIUM 25 MCG TABLET GT SCH (05:31)
[2017-09-02] MEDS: FIBERSOURCE HN 1,000 ML BOTTLE GT PRN ×2 (05:31→22:37)
[2017-09-02] MEDS: OMEPRAZOLE 20 MG CAPSULE.DR GT SCH (05:31)
[2017-09-02 06:12] VITALS: BP 123/58
[2017-09-02] MEDS: MAGNESIUM HYDROXIDE 30 ML UDC GT PRN (06:36)
[2017-09-02 07:38] VITALS: BP 121/70
[2017-09-02] MEDS: MECLIZINE HCL 12.5 MG TABLET GT SCH ×2 (09:42→21:59)
[2017-09-02] MEDS: METOCLOPRAMIDE HCL 10 MG/10 ML UDC GT SCH ×3 (09:43→17:16)
[2017-09-02] MEDS: FERROUS SULFATE - FOR SA ONLY 330 MG/7.5 ML UDC GT SCH (09:43)
[2017-09-02] MEDS: POLYETHYLENE GLYCOL 3350 17 GM POWD.PACK GT SCH (09:43)
[2017-09-02] MEDS: HYDROGEN PEROXIDE 480 ML BOTTLE TP SCH ×2 (09:44→21:59)
[2017-09-02] MEDS: Z GUARD REMEDY 4 OZ OINT TP SCH ×2 (09:44→21:59)
[2017-09-02 13:30] VITALS: BP 116/70
[2017-09-02 19:01] VITALS: BP 107/59
[2017-09-02 19:47] VITALS: BP 114/55
[2017-09-02] MEDS: SENNOSIDES 8.6 MG TABLET GT SCH (21:00)
[2017-09-02] MEDS: CYANOCOBALAMIN 500 MCG TABLET GT SCH (21:59)
[2017-09-02] MEDS: ASCORBIC ACID 500 MG TABLET GT SCH (21:59)
[2017-09-02] MEDS: DULOXETINE HCL 30 MG CAPSULE.DR GT SCH (21:59)
[2017-09-02] MEDS: ZINC SULFATE 220 MG CAPSULE GT SCH (21:59)
[2017-09-03 00:15] VITALS: BP 116/66
[2017-09-03] MEDS: ALBUTEROL HALF STRENGTH 1.25 MG/3 ML VIAL.NEB NEB SCH ×4 (01:14→19:58)
[2017-09-03] MEDS: IPRATROPIUM NEB FS 0.5 MG/2.5 ML AMPUL.NEB NEB SCH ×4 (01:14→19:58)
[2017-09-03] MEDS: OMEPRAZOLE 20 MG CAPSULE.DR GT SCH (06:03)
[2017-09-03] MEDS: LEVOTHYROXINE SODIUM 25 MCG TABLET GT SCH (06:03)
[2017-09-03 06:04] VITALS: BP 134/71
[2017-09-03 07:45] VITALS: BP 108/60
[2017-09-03] MEDS: Z GUARD REMEDY 4 OZ OINT TP SCH ×2 (09:00→20:18)
[2017-09-03] MEDS: MECLIZINE HCL 12.5 MG TABLET GT SCH ×2 (09:00→20:16)
[2017-09-03] MEDS: FERROUS SULFATE - FOR SA ONLY 330 MG/7.5 ML UDC GT SCH (09:00)
[2017-09-03] MEDS: POLYETHYLENE GLYCOL 3350 17 GM POWD.PACK GT SCH (09:00)
[2017-09-03] MEDS: HYDROGEN PEROXIDE 480 ML BOTTLE TP SCH ×2 (09:00→20:18)
[2017-09-03] MEDS: METOCLOPRAMIDE HCL 10 MG/10 ML UDC GT SCH ×3 (09:00→16:34)
[2017-09-03 16:42] VITALS: BP 110/65
[2017-09-03] MEDS: FIBERSOURCE HN 1,000 ML BOTTLE GT PRN (17:47)
[2017-09-03 19:00] VITALS: BP 114/65
--- NOTE | 2017-09-03 19:06 | NUR ---
Noted redness on interphalangeal joint of left index finger and metacarpophalangeal joint of second finger. Treatment started with Vitamin A dn D Qshift x14 days. Will continue to monitor
[2017-09-03 20:00] VITALS: BP 122/73
[2017-09-03] MEDS: SENNOSIDES 8.6 MG TABLET GT SCH (20:17)
[2017-09-03] MEDS: CYANOCOBALAMIN 500 MCG TABLET GT SCH (20:17)
[2017-09-03] MEDS: ZINC SULFATE 220 MG CAPSULE GT SCH (20:18)
[2017-09-03] MEDS: ASCORBIC ACID 500 MG TABLET GT SCH (20:18)
[2017-09-03] MEDS: DULOXETINE HCL 30 MG CAPSULE.DR GT SCH (21:17)
[2017-09-04 00:25] VITALS: BP 118/70
[2017-09-04] MEDS: ALBUTEROL HALF STRENGTH 1.25 MG/3 ML VIAL.NEB NEB SCH ×4 (02:06→20:21)
[2017-09-04] MEDS: IPRATROPIUM NEB FS 0.5 MG/2.5 ML AMPUL.NEB NEB SCH ×4 (02:06→20:21)
[2017-09-04] MEDS: OMEPRAZOLE 20 MG CAPSULE.DR GT SCH (05:57)
[2017-09-04] MEDS: LEVOTHYROXINE SODIUM 25 MCG TABLET GT SCH (05:57)
[2017-09-04 06:13] VITALS: BP 123/73
[2017-09-04 07:54] VITALS: BP 132/72
[2017-09-04] MEDS: MECLIZINE HCL 12.5 MG TABLET GT SCH ×2 (09:58→20:20)
[2017-09-04] MEDS: POLYETHYLENE GLYCOL 3350 17 GM POWD.PACK GT SCH (09:58)
[2017-09-04] MEDS: FERROUS SULFATE - FOR SA ONLY 330 MG/7.5 ML UDC GT SCH (09:58)
[2017-09-04] MEDS: METOCLOPRAMIDE HCL 10 MG/10 ML UDC GT SCH ×3 (09:58→16:22)
[2017-09-04] MEDS: HYDROGEN PEROXIDE 480 ML BOTTLE TP SCH ×2 (09:58→20:21)
[2017-09-04] MEDS: Z GUARD REMEDY 4 OZ OINT TP SCH ×2 (09:59→20:21)
[2017-09-04] MEDS: FIBERSOURCE HN 1,000 ML BOTTLE GT PRN (10:57)
[2017-09-04 12:00] VITALS: BP 128/71
[2017-09-04] MEDS: VITAMINS A AND D 56.7 GM TUBE TP SCH ×4 (15:00→20:22)
--- NOTE | 2017-09-04 18:57 | NUR ---
Seen by DIVISION TOLL WIRE CHIEF Deneen Hankins. Notified her that pt has been having low grade fevers. No new order. Pt recently had CBC, CXR, UA done.
[2017-09-04 19:16] VITALS: BP 128/71
[2017-09-04 19:59] VITALS: BP 130/68
[2017-09-04] MEDS: SENNOSIDES 8.6 MG TABLET GT SCH (20:20)
[2017-09-04] MEDS: CYANOCOBALAMIN 500 MCG TABLET GT SCH (20:21)
[2017-09-04] MEDS: ASCORBIC ACID 500 MG TABLET GT SCH (20:21)
[2017-09-04] MEDS: ZINC SULFATE 220 MG CAPSULE GT SCH (20:21)
[2017-09-04] MEDS: DULOXETINE HCL 30 MG CAPSULE.DR GT SCH (21:44)
[2017-09-05 00:13] VITALS: BP 125/72
[2017-09-05] MEDS: IPRATROPIUM NEB FS 0.5 MG/2.5 ML AMPUL.NEB NEB SCH ×4 (02:05→19:27)
[2017-09-05] MEDS: ALBUTEROL HALF STRENGTH 1.25 MG/3 ML VIAL.NEB NEB SCH ×4 (02:05→19:27)
[2017-09-05] MEDS: FIBERSOURCE HN 1,000 ML BOTTLE GT PRN (03:31)
[2017-09-05] MEDS: OMEPRAZOLE 20 MG CAPSULE.DR GT SCH (06:01)
[2017-09-05] MEDS: LEVOTHYROXINE SODIUM 25 MCG TABLET GT SCH (06:01)
[2017-09-05 06:16] VITALS: BP 134/76
[2017-09-05] MEDS: METOCLOPRAMIDE HCL 10 MG/10 ML UDC GT SCH ×3 (09:00→17:00)
[2017-09-05] MEDS: Z GUARD REMEDY 4 OZ OINT TP SCH ×2 (09:00→20:27)
[2017-09-05] MEDS: VITAMINS A AND D 56.7 GM TUBE TP SCH ×4 (09:00→20:27)
[2017-09-05] MEDS: POLYETHYLENE GLYCOL 3350 17 GM POWD.PACK GT SCH (09:00)
[2017-09-05] MEDS: MECLIZINE HCL 12.5 MG TABLET GT SCH ×2 (09:00→20:27)
[2017-09-05] MEDS: FERROUS SULFATE - FOR SA ONLY 330 MG/7.5 ML UDC GT SCH (09:00)
[2017-09-05] MEDS: HYDROGEN PEROXIDE 480 ML BOTTLE TP SCH ×2 (09:00→20:27)
[2017-09-05 10:00] VITALS: BP 134/76
[2017-09-05 12:46] VITALS: BP 148/69
[2017-09-05] MEDS: ACETAMINOPHEN 650 MG/20 ML UDC- FOR SA PATIENTS ONLY GT PRN (14:45)
--- NOTE | 2017-09-05 15:14 | NUR ---
Pt has temp 101.1 F. Notified SHOWCASE MAKER Deneen Hankins. Received order to do UA C&S, CXR, stool for C diff, blood culture x 2, CBC, and BMP. Notified pt's daughter.
[2017-09-05 17:29] LABS: BASOPHILS % (AUTO) 0.3 % (0.0-2.0); EOSINOPHILS # (AUTO) 0.3 /CMM (0.0-0.7); EOSINOPHILS % (AUTO) 2.7 % (0.0-6.0); HEMATOCRIT 29 % (33-45); HEMOGLOBIN 9.6 g/dL (11.5-14.8); LYMPHOCYTES # (AUTO) 1.8 /CMM (0.8-4.8); LYMPHOCYTES % (AUTO) 14.9 % (20.0-44.0); MEAN CORPUSCULAR HEMOGLOBIN 29 PG (26.0-33.0); MEAN CORPUSCULAR HGB CONC 33 g/dl (31.0-36.0); MEAN CORPUSCULAR VOLUME 90 fL (82-100); MONOCYTES % (AUTO) 7.8 % (2.0-12.0); NEUTROPHILS # (AUTO) 9.2 /CMM (1.8-8.9); NEUTROPHILS % (AUTO) 74.3 % (43.0-81.0); PLATELET COUNT (AUTO) 403 /CMM (150-450); RDW COEFFICIENT OF VARIATION 15.9 (11.5-15.0); RED BLOOD CELL COUNT(AUTO) 3.27 MIL/uL (4.0-5.2); WHITE BLOOD COUNT (AUTO) 12.4 K/uL (4.3-11.0)
[2017-09-05 17:37] LABS: CALCIUM, SERUM 9.1 mg/dL (8.5-10.1); CARBON DIOXIDE 27 mmol/L (21-32); CHLORIDE 102 mmol/L (98-107); CREATININE 0.5 mg/dL (0.6-1.3); GLUCOSE 98 mg/dL (74-106); POTASSIUM 4.2 mmol/L (3.5-5.1); SODIUM SERUM 139 mmol/L (136-145); UREA NITROGEN, BLOOD 19 mg/dL (7-18)
[2017-09-05 18:10] VITALS: BP 134/76
[2017-09-05 18:35] LABS: APPEARANCE,URINE CLOUDY (CLEAR); BILIRUBIN,URINE NEGATIVE (NEGATIVE); BLOOD, URINE 1+ Ery/uL (NEGATIVE); COLOR,URINE YELLOW (YELLOW); KETONES,URINE NEGATIVE (NEGATIVE); LEUKOCYTE ESTERASE ,URINE 2+ (NEGATIVE); NITRITE, URINE NEGATIVE (NEGATIVE); PH,URINE 8.5 (5.0-8.0); PROTEIN,URINE TRACE mg/dl (NEGATIVE); UGLUCOSE NEGATIVE (NEGATIVE); UROBILINOGEN,URINE 0.2 EU/dL (0.2)
[2017-09-05 19:01] LABS: BACTERIA,URINE Many /HPF (None Seen); SQUAMOUS EPITHELIAL CELL,UR Few /HPF (None Seen); WBC,URINE 51-80 /HPF (0-3)
[2017-09-05 19:44] VITALS: BP 122/46
[2017-09-05] MEDS: CYANOCOBALAMIN 500 MCG TABLET GT SCH (20:26)
[2017-09-05] MEDS: SENNOSIDES 8.6 MG TABLET GT SCH (20:26)
[2017-09-05] MEDS: ZINC SULFATE 220 MG CAPSULE GT SCH (20:27)
[2017-09-05] MEDS: ASCORBIC ACID 500 MG TABLET GT SCH (20:27)
[2017-09-05] MEDS: DULOXETINE HCL 30 MG CAPSULE.DR GT SCH (21:56)
[2017-09-06] MEDS: FIBERSOURCE HN 1,000 ML BOTTLE GT PRN ×2 (00:06→22:47)
[2017-09-06 00:13] VITALS: BP 126/75
[2017-09-06] MEDS: ALBUTEROL HALF STRENGTH 1.25 MG/3 ML VIAL.NEB NEB SCH ×4 (01:35→20:08)
[2017-09-06] MEDS: IPRATROPIUM NEB FS 0.5 MG/2.5 ML AMPUL.NEB NEB SCH ×4 (01:35→20:08)
[2017-09-06] MEDS: LEVOTHYROXINE SODIUM 25 MCG TABLET GT SCH (05:18)
[2017-09-06] MEDS: OMEPRAZOLE 20 MG CAPSULE.DR GT SCH (05:18)
[2017-09-06 06:34] VITALS: BP 130/85
[2017-09-06 07:54] VITALS: BP 134/96
[2017-09-06] MEDS: POLYETHYLENE GLYCOL 3350 17 GM POWD.PACK GT SCH (09:00)
[2017-09-06] MEDS: METOCLOPRAMIDE HCL 10 MG/10 ML UDC GT SCH ×3 (09:00→16:50)
[2017-09-06] MEDS: HYDROGEN PEROXIDE 480 ML BOTTLE TP SCH ×2 (09:00→21:09)
[2017-09-06] MEDS: Z GUARD REMEDY 4 OZ OINT TP SCH ×2 (09:00→21:09)
[2017-09-06] MEDS: MECLIZINE HCL 12.5 MG TABLET GT SCH ×2 (09:00→21:09)
[2017-09-06] MEDS: VITAMINS A AND D 56.7 GM TUBE TP SCH ×4 (09:00→21:11)
[2017-09-06] MEDS: FERROUS SULFATE - FOR SA ONLY 330 MG/7.5 ML UDC GT SCH (09:00)
--- NOTE | 2017-09-06 11:40 | NUR ---
Reported to Dr. John chest X ray result, preliminary urine cx., gram negative rods, stool C diff (-), WBC 12.4, current T 97.6, NNO given at this time.
[2017-09-06 15:25] VITALS: BP 115/70
[2017-09-06 18:22] VITALS: BP 130/85
[2017-09-06] MEDS: SENNOSIDES 8.6 MG TABLET GT SCH (21:09)
[2017-09-06] MEDS: ASCORBIC ACID 500 MG TABLET GT SCH (21:09)
[2017-09-06] MEDS: CYANOCOBALAMIN 500 MCG TABLET GT SCH (21:09)
[2017-09-06] MEDS: ZINC SULFATE 220 MG CAPSULE GT SCH (21:09)
[2017-09-06] MEDS: DULOXETINE HCL 30 MG CAPSULE.DR GT SCH (21:11)
[2017-09-06 21:53] VITALS: BP 97/53
[2017-09-07 00:30] VITALS: BP 120/72
[2017-09-07] MEDS: ALBUTEROL HALF STRENGTH 1.25 MG/3 ML VIAL.NEB NEB SCH ×4 (01:05→20:00)
[2017-09-07] MEDS: IPRATROPIUM NEB FS 0.5 MG/2.5 ML AMPUL.NEB NEB SCH ×4 (01:05→20:00)
[2017-09-07] MEDS: LEVOTHYROXINE SODIUM 25 MCG TABLET GT SCH (06:00)
[2017-09-07] MEDS: OMEPRAZOLE 20 MG CAPSULE.DR GT SCH (06:00)
[2017-09-07 06:01] VITALS: BP 126/76
[2017-09-07 07:42] VITALS: BP 132/68
[2017-09-07] MEDS: Z GUARD REMEDY 4 OZ OINT TP SCH ×2 (08:39→20:48)
[2017-09-07] MEDS: FERROUS SULFATE - FOR SA ONLY 330 MG/7.5 ML UDC GT SCH (08:39)
[2017-09-07] MEDS: VITAMINS A AND D 56.7 GM TUBE TP SCH ×4 (08:39→20:48)
[2017-09-07] MEDS: POLYETHYLENE GLYCOL 3350 17 GM POWD.PACK GT SCH (08:39)
[2017-09-07] MEDS: HYDROGEN PEROXIDE 480 ML BOTTLE TP SCH ×2 (08:39→20:47)
[2017-09-07] MEDS: MECLIZINE HCL 12.5 MG TABLET GT SCH ×2 (08:39→20:47)
[2017-09-07] MEDS: METOCLOPRAMIDE HCL 10 MG/10 ML UDC GT SCH ×3 (08:39→16:35)
[2017-09-07 12:00] VITALS: BP 103/62
[2017-09-07 18:00] VITALS: BP 123/51
[2017-09-07] MEDS: CYANOCOBALAMIN 500 MCG TABLET GT SCH (20:47)
[2017-09-07] MEDS: SENNOSIDES 8.6 MG TABLET GT SCH (20:47)
[2017-09-07] MEDS: ASCORBIC ACID 500 MG TABLET GT SCH (20:47)
[2017-09-07] MEDS: ZINC SULFATE 220 MG CAPSULE GT SCH (20:47)
--- NOTE | 2017-09-07 21:51 | NUR ---
Seen by AJ Kelly she applied Silver Nitrate to GT granuloma.Pt tolerated procedure well,no bleeding on the gt noted.Will continue to monitor.
[2017-09-07] MEDS: DULOXETINE HCL 30 MG CAPSULE.DR GT SCH (22:35)
[2017-09-07 23:49] VITALS: BP 117/79
[2017-09-08 00:20] VITALS: BP 123/73
[2017-09-08] MEDS: IPRATROPIUM NEB FS 0.5 MG/2.5 ML AMPUL.NEB NEB SCH ×4 (02:06→19:30)
[2017-09-08] MEDS: ALBUTEROL HALF STRENGTH 1.25 MG/3 ML VIAL.NEB NEB SCH ×4 (02:06→19:30)
[2017-09-08] MEDS: OMEPRAZOLE 20 MG CAPSULE.DR GT SCH (05:48)
[2017-09-08] MEDS: LEVOTHYROXINE SODIUM 25 MCG TABLET GT SCH (05:48)
[2017-09-08 06:21] VITALS: BP 97/60
[2017-09-08 07:29] VITALS: BP 114/53
[2017-09-08] MEDS: METOCLOPRAMIDE HCL 10 MG/10 ML UDC GT SCH ×3 (08:46→17:44)
[2017-09-08] MEDS: MECLIZINE HCL 12.5 MG TABLET GT SCH ×2 (08:46→21:49)
[2017-09-08] MEDS: Z GUARD REMEDY 4 OZ OINT TP SCH ×2 (08:46→21:49)
[2017-09-08] MEDS: FERROUS SULFATE - FOR SA ONLY 330 MG/7.5 ML UDC GT SCH (08:46)
[2017-09-08] MEDS: POLYETHYLENE GLYCOL 3350 17 GM POWD.PACK GT SCH (08:46)
[2017-09-08] MEDS: VITAMINS A AND D 56.7 GM TUBE TP SCH ×4 (08:47→21:50)
[2017-09-08] MEDS: HYDROGEN PEROXIDE 480 ML BOTTLE TP SCH ×2 (10:30→21:49)
--- NOTE | 2017-09-08 12:30 | NUR ---
Reported final urine culture result to Dr. John showing Proteus Mirabilis > 100,000 cfu, No new order given, Resident afebrile at 99.1 Updated resident's daughter Cheli of patient's condition and result of laboratory and culture result, MD John did not want to treat it at this time. Appreciated the call.
[2017-09-08] MEDS: FIBERSOURCE HN 1,000 ML BOTTLE GT PRN (13:50)
[2017-09-08 15:31] VITALS: BP 110/70
[2017-09-08 18:47] VITALS: BP 110/70
[2017-09-08] MEDS: SENNOSIDES 8.6 MG TABLET GT SCH (21:49)
[2017-09-08] MEDS: ASCORBIC ACID 500 MG TABLET GT SCH (21:49)
[2017-09-08] MEDS: CYANOCOBALAMIN 500 MCG TABLET GT SCH (21:49)
[2017-09-08] MEDS: ZINC SULFATE 220 MG CAPSULE GT SCH (21:49)
[2017-09-08] MEDS: DULOXETINE HCL 30 MG CAPSULE.DR GT SCH (21:50)
[2017-09-08 21:55] VITALS: BP 145/88
[2017-09-09 00:02] VITALS: BP 134/78
[2017-09-09] MEDS: ALBUTEROL HALF STRENGTH 1.25 MG/3 ML VIAL.NEB NEB SCH ×4 (02:21→20:00)
[2017-09-09] MEDS: IPRATROPIUM NEB FS 0.5 MG/2.5 ML AMPUL.NEB NEB SCH ×4 (02:21→20:00)
[2017-09-09] MEDS: OMEPRAZOLE 20 MG CAPSULE.DR GT SCH (06:09)
[2017-09-09] MEDS: LEVOTHYROXINE SODIUM 25 MCG TABLET GT SCH (06:09)
[2017-09-09 06:10] VITALS: BP 125/68
[2017-09-09 07:35] VITALS: BP 106/58
[2017-09-09] MEDS: FERROUS SULFATE - FOR SA ONLY 330 MG/7.5 ML UDC GT SCH (09:44)
[2017-09-09] MEDS: MECLIZINE HCL 12.5 MG TABLET GT SCH ×2 (09:44→21:43)
[2017-09-09] MEDS: METOCLOPRAMIDE HCL 10 MG/10 ML UDC GT SCH ×3 (09:45→17:27)
[2017-09-09] MEDS: POLYETHYLENE GLYCOL 3350 17 GM POWD.PACK GT SCH (09:45)
[2017-09-09] MEDS: Z GUARD REMEDY 4 OZ OINT TP SCH ×2 (09:46→21:43)
[2017-09-09] MEDS: VITAMINS A AND D 56.7 GM TUBE TP SCH ×4 (09:46→21:43)
[2017-09-09] MEDS: HYDROGEN PEROXIDE 480 ML BOTTLE TP SCH ×2 (09:46→21:43)
[2017-09-09 12:00] VITALS: BP_SYST 110; BP_SYST 122; BP_DIAS 60; BP_DIAS 67
[2017-09-09] MEDS: FIBERSOURCE HN 1,000 ML BOTTLE GT PRN (12:48)
[2017-09-09] MEDS: CLONIDINE HCL 0.1 MG TABLET GT PRN (17:27)
[2017-09-09 18:00] VITALS: BP 91/61
[2017-09-09 19:55] VITALS: BP 131/70
[2017-09-09] MEDS: CYANOCOBALAMIN 500 MCG TABLET GT SCH (21:43)
[2017-09-09] MEDS: SENNOSIDES 8.6 MG TABLET GT SCH (21:43)
[2017-09-09] MEDS: ZINC SULFATE 220 MG CAPSULE GT SCH (21:43)
[2017-09-09] MEDS: ASCORBIC ACID 500 MG TABLET GT SCH (21:43)
[2017-09-09] MEDS: DULOXETINE HCL 30 MG CAPSULE.DR GT SCH (21:44)
[2017-09-09] MEDS: TRAMADOL HCL 50 MG TABLET GT PRN (23:27)
[2017-09-10] VITALS: BP 125/72
[2017-09-10] MEDS: IPRATROPIUM NEB FS 0.5 MG/2.5 ML AMPUL.NEB NEB SCH ×4 (00:53→19:57)
[2017-09-10] MEDS: ALBUTEROL HALF STRENGTH 1.25 MG/3 ML VIAL.NEB NEB SCH ×4 (00:53→19:57)
[2017-09-10] MEDS: OMEPRAZOLE 20 MG CAPSULE.DR GT SCH (05:36)
[2017-09-10] MEDS: LEVOTHYROXINE SODIUM 25 MCG TABLET GT SCH (05:36)
[2017-09-10] MEDS: FIBERSOURCE HN 1,000 ML BOTTLE GT PRN (05:36)
[2017-09-10 06:00] VITALS: BP 120/78
[2017-09-10 07:41] VITALS: BP 123/67
[2017-09-10] MEDS: MECLIZINE HCL 12.5 MG TABLET GT SCH ×2 (09:00→21:34)
[2017-09-10] MEDS: VITAMINS A AND D 56.7 GM TUBE TP SCH ×4 (09:00→21:34)
[2017-09-10] MEDS: FERROUS SULFATE - FOR SA ONLY 330 MG/7.5 ML UDC GT SCH (09:00)
[2017-09-10] MEDS: Z GUARD REMEDY 4 OZ OINT TP SCH ×2 (09:00→21:34)
[2017-09-10] MEDS: POLYETHYLENE GLYCOL 3350 17 GM POWD.PACK GT SCH (09:00)
[2017-09-10] MEDS: HYDROGEN PEROXIDE 480 ML BOTTLE TP SCH ×2 (09:00→21:34)
[2017-09-10] MEDS: METOCLOPRAMIDE HCL 10 MG/10 ML UDC GT SCH ×3 (09:00→16:42)
[2017-09-10 12:22] VITALS: BP 123/67
[2017-09-10 18:29] VITALS: BP 123/58
[2017-09-10 19:44] VITALS: BP 127/61
[2017-09-10] MEDS: SENNOSIDES 8.6 MG TABLET GT SCH (21:34)
[2017-09-10] MEDS: ASCORBIC ACID 500 MG TABLET GT SCH (21:34)
[2017-09-10] MEDS: ZINC SULFATE 220 MG CAPSULE GT SCH (21:34)
[2017-09-10] MEDS: CYANOCOBALAMIN 500 MCG TABLET GT SCH (21:34)
[2017-09-10] MEDS: DULOXETINE HCL 30 MG CAPSULE.DR GT SCH (21:34)
[2017-09-11] MEDS: IPRATROPIUM NEB FS 0.5 MG/2.5 ML AMPUL.NEB NEB SCH ×4 (02:16→19:39)
[2017-09-11] MEDS: ALBUTEROL HALF STRENGTH 1.25 MG/3 ML VIAL.NEB NEB SCH ×4 (02:16→19:40)
[2017-09-11 03:40] VITALS: BP 120/59
[2017-09-11] MEDS: LEVOTHYROXINE SODIUM 25 MCG TABLET GT SCH (05:52)
[2017-09-11] MEDS: OMEPRAZOLE 20 MG CAPSULE.DR GT SCH (05:52)
[2017-09-11 06:02] VITALS: BP 129/58
[2017-09-11] MEDS: HYDROGEN PEROXIDE 480 ML BOTTLE TP SCH ×2 (08:31→21:39)
[2017-09-11] MEDS: Z GUARD REMEDY 4 OZ OINT TP SCH ×2 (08:31→21:39)
[2017-09-11] MEDS: VITAMINS A AND D 56.7 GM TUBE TP SCH ×4 (08:31→21:39)
[2017-09-11] MEDS: MECLIZINE HCL 12.5 MG TABLET GT SCH ×2 (08:31→21:38)
[2017-09-11] MEDS: METOCLOPRAMIDE HCL 10 MG/10 ML UDC GT SCH ×3 (08:31→17:07)
[2017-09-11] MEDS: FERROUS SULFATE - FOR SA ONLY 330 MG/7.5 ML UDC GT SCH (08:31)
[2017-09-11] MEDS: POLYETHYLENE GLYCOL 3350 17 GM POWD.PACK GT SCH (08:31)
[2017-09-11 10:57] VITALS: BP 113/82
[2017-09-11 13:56] VITALS: BP 119/61
--- NOTE | 2017-09-11 18:00 | NUR ---
Notified AJ Hankins that pt's right eyelid is slightly red and slightly swollen. No discharge noted.
[2017-09-11 18:47] VITALS: BP 115/60
[2017-09-11 19:58] VITALS: BP 125/53
[2017-09-11] MEDS: ZINC SULFATE 220 MG CAPSULE GT SCH (21:39)
[2017-09-11] MEDS: ASCORBIC ACID 500 MG TABLET GT SCH (21:39)
[2017-09-11] MEDS: DULOXETINE HCL 30 MG CAPSULE.DR GT SCH (21:39)
[2017-09-11] MEDS: SENNOSIDES 8.6 MG TABLET GT SCH (21:39)
[2017-09-11] MEDS: CYANOCOBALAMIN 500 MCG TABLET GT SCH (21:39)
[2017-09-12 01:08] VITALS: BP 126/69
[2017-09-12] MEDS: IPRATROPIUM NEB FS 0.5 MG/2.5 ML AMPUL.NEB NEB SCH ×4 (02:02→20:25)
[2017-09-12] MEDS: ALBUTEROL HALF STRENGTH 1.25 MG/3 ML VIAL.NEB NEB SCH ×4 (02:02→20:25)
[2017-09-12] MEDS: OMEPRAZOLE 20 MG CAPSULE.DR GT SCH (06:09)
[2017-09-12] MEDS: LEVOTHYROXINE SODIUM 25 MCG TABLET GT SCH (06:09)
[2017-09-12 06:17] VITALS: BP 124/60
[2017-09-12 08:10] VITALS: BP 138/86
[2017-09-12] MEDS: METOCLOPRAMIDE HCL 10 MG/10 ML UDC GT SCH ×3 (08:46→17:56)
[2017-09-12] MEDS: FERROUS SULFATE - FOR SA ONLY 330 MG/7.5 ML UDC GT SCH (08:46)
[2017-09-12] MEDS: VITAMINS A AND D 56.7 GM TUBE TP SCH ×4 (08:46→21:29)
[2017-09-12] MEDS: MECLIZINE HCL 12.5 MG TABLET GT SCH ×2 (08:46→21:28)
[2017-09-12] MEDS: HYDROGEN PEROXIDE 480 ML BOTTLE TP SCH ×2 (08:46→21:29)
[2017-09-12] MEDS: POLYETHYLENE GLYCOL 3350 17 GM POWD.PACK GT SCH (08:46)
[2017-09-12] MEDS: Z GUARD REMEDY 4 OZ OINT TP SCH ×2 (08:46→21:29)
--- NOTE | 2017-09-12 10:00 | NUR ---
Seen by Dr. John. Notified him that pt's right eyelid was red and swollen yesterday, but it has improved today. No new order.
[2017-09-12 16:01] VITALS: BP 119/65
[2017-09-12 18:44] VITALS: BP 126/58
[2017-09-12 20:02] VITALS: BP 117/69
[2017-09-12] MEDS: SENNOSIDES 8.6 MG TABLET GT SCH (21:28)
[2017-09-12] MEDS: CYANOCOBALAMIN 500 MCG TABLET GT SCH (21:29)
[2017-09-12] MEDS: ZINC SULFATE 220 MG CAPSULE GT SCH (21:29)
[2017-09-12] MEDS: ASCORBIC ACID 500 MG TABLET GT SCH (21:29)
[2017-09-12] MEDS: DULOXETINE HCL 30 MG CAPSULE.DR GT SCH (21:29)
[2017-09-13] VITALS (8 sets, daily range): BP systolic 110–135; BP diastolic 53–76
[2017-09-13] MEDS: IPRATROPIUM NEB FS 0.5 MG/2.5 ML AMPUL.NEB NEB SCH ×4 (02:02→19:45)
[2017-09-13] MEDS: ALBUTEROL HALF STRENGTH 1.25 MG/3 ML VIAL.NEB NEB SCH ×4 (02:02→19:45)
[2017-09-13] MEDS: OMEPRAZOLE 20 MG CAPSULE.DR GT SCH (05:41)
[2017-09-13] MEDS: LEVOTHYROXINE SODIUM 25 MCG TABLET GT SCH (05:41)
[2017-09-13] MEDS: POLYETHYLENE GLYCOL 3350 17 GM POWD.PACK GT SCH (08:22)
[2017-09-13] MEDS: MECLIZINE HCL 12.5 MG TABLET GT SCH ×2 (08:22→21:26)
[2017-09-13] MEDS: FERROUS SULFATE - FOR SA ONLY 330 MG/7.5 ML UDC GT SCH (08:22)
[2017-09-13] MEDS: METOCLOPRAMIDE HCL 10 MG/10 ML UDC GT SCH ×3 (08:24→17:54)
[2017-09-13] MEDS: VITAMINS A AND D 56.7 GM TUBE TP SCH ×4 (09:00→21:25)
[2017-09-13] MEDS: HYDROGEN PEROXIDE 480 ML BOTTLE TP SCH ×2 (09:00→21:25)
[2017-09-13] MEDS: Z GUARD REMEDY 4 OZ OINT TP SCH ×2 (09:00→21:25)
--- NOTE | 2017-09-13 09:00 | NUR ---
DR. RIVAS WAS NOTIFIED OF PT HAVING FEVER OF 100.6. STATED TO REDRAW THE URINE CULTURE.
--- NOTE | 2017-09-13 15:18 | NUR ---
Notified Cheli, resident's daughter of patient's low grade temp this AM with new order to send urine for culture. Urine sent for UA and culture.
[2017-09-13] MEDS: CLONIDINE HCL 0.1 MG TABLET GT PRN (17:54)
[2017-09-13 18:07] LABS: APPEARANCE,URINE SL CLOUDY (CLEAR); BILIRUBIN,URINE NEGATIVE (NEGATIVE); BLOOD, URINE 1+ Ery/uL (NEGATIVE); COLOR,URINE YELLOW (YELLOW); KETONES,URINE NEGATIVE (NEGATIVE); LEUKOCYTE ESTERASE ,URINE 3+ (NEGATIVE); NITRITE, URINE NEGATIVE (NEGATIVE); PH,URINE 7.5 (5.0-8.0); PROTEIN,URINE TRACE mg/dl (NEGATIVE); UGLUCOSE NEGATIVE (NEGATIVE); UROBILINOGEN,URINE 0.2 EU/dL (0.2)
[2017-09-13 18:13] LABS: BACTERIA,URINE Moderate /HPF (None Seen); SQUAMOUS EPITHELIAL CELL,UR Few /HPF (None Seen); WBC,URINE 51-80 /HPF (0-3)
[2017-09-13] MEDS: SENNOSIDES 8.6 MG TABLET GT SCH (21:24)
[2017-09-13] MEDS: ZINC SULFATE 220 MG CAPSULE GT SCH (21:25)
[2017-09-13] MEDS: CYANOCOBALAMIN 500 MCG TABLET GT SCH (21:25)
[2017-09-13] MEDS: DULOXETINE HCL 30 MG CAPSULE.DR GT SCH (21:25)
[2017-09-13] MEDS: ASCORBIC ACID 500 MG TABLET GT SCH (21:25)
[2017-09-13] MEDS: FIBERSOURCE HN 1,000 ML BOTTLE GT PRN (21:26)
[2017-09-14 00:30] VITALS: BP 120/74
[2017-09-14] MEDS: IPRATROPIUM NEB FS 0.5 MG/2.5 ML AMPUL.NEB NEB SCH ×4 (02:00→19:51)
[2017-09-14] MEDS: ALBUTEROL HALF STRENGTH 1.25 MG/3 ML VIAL.NEB NEB SCH ×4 (02:00→19:51)
[2017-09-14] MEDS: OMEPRAZOLE 20 MG CAPSULE.DR GT SCH (06:05)
[2017-09-14] MEDS: LEVOTHYROXINE SODIUM 25 MCG TABLET GT SCH (06:05)
[2017-09-14 06:07] VITALS: BP 131/68
[2017-09-14 07:36] VITALS: BP 132/50
[2017-09-14] MEDS: Z GUARD REMEDY 4 OZ OINT TP SCH ×4 (09:56→21:23)
[2017-09-14] MEDS: MECLIZINE HCL 12.5 MG TABLET GT SCH ×2 (09:56→21:22)
[2017-09-14] MEDS: HYDROGEN PEROXIDE 480 ML BOTTLE TP SCH ×2 (09:56→21:23)
[2017-09-14] MEDS: VITAMINS A AND D 56.7 GM TUBE TP SCH ×4 (09:56→21:23)
[2017-09-14] MEDS: POLYETHYLENE GLYCOL 3350 17 GM POWD.PACK GT SCH (09:56)
[2017-09-14] MEDS: FERROUS SULFATE - FOR SA ONLY 330 MG/7.5 ML UDC GT SCH (09:56)
[2017-09-14] MEDS: METOCLOPRAMIDE HCL 10 MG/10 ML UDC GT SCH ×3 (09:56→17:00)
[2017-09-14 12:00] VITALS: BP 121/64
[2017-09-14] MEDS: FIBERSOURCE HN 1,000 ML BOTTLE GT PRN (15:25)
[2017-09-14] MEDS: TRAMADOL HCL 50 MG TABLET GT PRN (15:25)
--- NOTE | 2017-09-14 16:34 | NUR ---
Resident up in guido chair in the Activity room with other Residents for socialization. Also, Resident watched her Egyptian TV programs for stimulation. Resident received greetings in Egyptian from a visitor that Resident smiled.
--- NOTE | 2017-09-14 17:03 | NUR ---
Seen by AJ Abbott. She applied silver nitrate on the pt's GT stoma granulation tissue. Pt tolerated procedure well.
[2017-09-14] MEDS: MAGNESIUM HYDROXIDE 30 ML UDC GT PRN (18:22)
[2017-09-14 18:43] VITALS: BP 119/71
--- NOTE | 2017-09-14 18:45 | NUR ---
Seen by INVESTIGATOR FRAUD Deneen Hankins. Relayed UA and preliminary urine culture results to her. No new order.
[2017-09-14 19:27] VITALS: BP 120/57
[2017-09-14] MEDS: SENNOSIDES 8.6 MG TABLET GT SCH (21:22)
[2017-09-14] MEDS: ASCORBIC ACID 500 MG TABLET GT SCH (21:22)
[2017-09-14] MEDS: ZINC SULFATE 220 MG CAPSULE GT SCH (21:22)
[2017-09-14] MEDS: CYANOCOBALAMIN 500 MCG TABLET GT SCH (21:22)
[2017-09-14] MEDS: DULOXETINE HCL 30 MG CAPSULE.DR GT SCH (21:23)
[2017-09-15 00:30] VITALS: BP 137/64
[2017-09-15] MEDS: IPRATROPIUM NEB FS 0.5 MG/2.5 ML AMPUL.NEB NEB SCH ×4 (00:54→19:46)
[2017-09-15] MEDS: ALBUTEROL HALF STRENGTH 1.25 MG/3 ML VIAL.NEB NEB SCH ×4 (00:54→19:46)
[2017-09-15] MEDS: OMEPRAZOLE 20 MG CAPSULE.DR GT SCH (05:53)
[2017-09-15] MEDS: LEVOTHYROXINE SODIUM 25 MCG TABLET GT SCH (05:53)
[2017-09-15 06:34] VITALS: BP 120/69
[2017-09-15] MEDS: FIBERSOURCE HN 1,000 ML BOTTLE GT PRN ×2 (06:37→22:18)
[2017-09-15] MEDS: Z GUARD REMEDY 4 OZ OINT TP SCH ×4 (09:00→21:31)
[2017-09-15] MEDS: VITAMINS A AND D 56.7 GM TUBE TP SCH ×4 (09:00→21:31)
[2017-09-15] MEDS: HYDROGEN PEROXIDE 480 ML BOTTLE TP SCH ×2 (09:00→21:31)
[2017-09-15] MEDS: POLYETHYLENE GLYCOL 3350 17 GM POWD.PACK GT SCH (09:08)
[2017-09-15] MEDS: MECLIZINE HCL 12.5 MG TABLET GT SCH ×2 (09:08→21:31)
[2017-09-15] MEDS: FERROUS SULFATE - FOR SA ONLY 330 MG/7.5 ML UDC GT SCH (09:08)
[2017-09-15] MEDS: METOCLOPRAMIDE HCL 10 MG/10 ML UDC GT SCH ×3 (09:09→17:38)
[2017-09-15 10:21] VITALS: BP 122/74
--- NOTE | 2017-09-15 11:49 | NUR ---
Reported to Dr. Foreman preliminary urine culture, temperature this morning 98.3, however resident having low grade temp in the past few days. Per Dr. Foreman he will review the labs and may order ATB if indicated.
[2017-09-15 12:00] VITALS: BP_SYST 125; BP_SYST 127; BP_DIAS 77
[2017-09-15] MEDS ORDERED: CEFTRIAXONE 1 G in IV D5W 50 ML IV SCH (12:00)
--- NOTE | 2017-09-15 13:06 | NUR ---
New order given by Dr. Foreman for Rocephin 1 gm IV Q 24 hours for UTI, HL inserted in the L hand G #24, x 1 attempt with good blood return. Cheli, daughter notified of new order. Order faxed to [facility] and [facility] pharmacy.
[2017-09-15] MEDS: CEFTRIAXONE 1 G in IV D5W 50 ML IV SCH (15:00)
[2017-09-15 18:35] VITALS: BP 123/70
[2017-09-15 19:42] VITALS: BP 119/56
[2017-09-15] MEDS: SENNOSIDES 8.6 MG TABLET GT SCH (21:31)
[2017-09-15] MEDS: DULOXETINE HCL 30 MG CAPSULE.DR GT SCH (21:31)
[2017-09-15] MEDS: ZINC SULFATE 220 MG CAPSULE GT SCH (21:31)
[2017-09-15] MEDS: ASCORBIC ACID 500 MG TABLET GT SCH (21:31)
[2017-09-15] MEDS: CYANOCOBALAMIN 500 MCG TABLET GT SCH (21:31)
[2017-09-16 00:30] VITALS: BP 132/89
[2017-09-16] MEDS: IPRATROPIUM NEB FS 0.5 MG/2.5 ML AMPUL.NEB NEB SCH ×4 (01:24→19:40)
[2017-09-16] MEDS: ALBUTEROL HALF STRENGTH 1.25 MG/3 ML VIAL.NEB NEB SCH ×4 (01:24→19:40)
[2017-09-16] MEDS: LEVOTHYROXINE SODIUM 25 MCG TABLET GT SCH (05:45)
[2017-09-16] MEDS: OMEPRAZOLE 20 MG CAPSULE.DR GT SCH (05:45)
[2017-09-16] MEDS: ACETAMINOPHEN 650 MG/20 ML UDC- FOR SA PATIENTS ONLY GT PRN ×2 (05:47→17:42)
[2017-09-16 06:05] VITALS: BP 119/79
[2017-09-16 07:30] VITALS: BP 134/76
[2017-09-16] MEDS: MECLIZINE HCL 12.5 MG TABLET GT SCH ×2 (08:54→21:51)
[2017-09-16] MEDS: FERROUS SULFATE - FOR SA ONLY 330 MG/7.5 ML UDC GT SCH (08:55)
[2017-09-16] MEDS: POLYETHYLENE GLYCOL 3350 17 GM POWD.PACK GT SCH (08:55)
[2017-09-16] MEDS: HYDROGEN PEROXIDE 480 ML BOTTLE TP SCH ×2 (08:55→21:51)
[2017-09-16] MEDS: METOCLOPRAMIDE HCL 10 MG/10 ML UDC GT SCH ×3 (08:55→17:42)
[2017-09-16] MEDS: VITAMINS A AND D 56.7 GM TUBE TP SCH ×4 (08:56→21:52)
[2017-09-16] MEDS: Z GUARD REMEDY 4 OZ OINT TP SCH ×4 (09:00→21:51)
[2017-09-16] MEDS ORDERED: ACETAMINOPHEN 325 MG TABLET PO PRN (09:30)
[2017-09-16 12:00] VITALS: BP 132/76
[2017-09-16] MEDS: CEFTRIAXONE 1 G in IV D5W 50 ML IV SCH (15:08)
[2017-09-16] MEDS: FIBERSOURCE HN 1,000 ML BOTTLE GT PRN (18:20)
[2017-09-16 18:43] VITALS: BP 137/54
[2017-09-16 19:39] VITALS: BP 124/64
[2017-09-16] MEDS: SENNOSIDES 8.6 MG TABLET GT SCH (21:51)
[2017-09-16] MEDS: ZINC SULFATE 220 MG CAPSULE GT SCH (21:51)
[2017-09-16] MEDS: ASCORBIC ACID 500 MG TABLET GT SCH (21:51)
[2017-09-16] MEDS: CYANOCOBALAMIN 500 MCG TABLET GT SCH (21:51)
[2017-09-16] MEDS: DULOXETINE HCL 30 MG CAPSULE.DR GT SCH (21:52)
[2017-09-17] VITALS: BP 128/70
[2017-09-17] MEDS: ALBUTEROL HALF STRENGTH 1.25 MG/3 ML VIAL.NEB NEB SCH ×4 (01:50→19:30)
[2017-09-17] MEDS: IPRATROPIUM NEB FS 0.5 MG/2.5 ML AMPUL.NEB NEB SCH ×4 (01:50→19:30)
[2017-09-17] MEDS: LEVOTHYROXINE SODIUM 25 MCG TABLET GT SCH (05:56)
[2017-09-17] MEDS: OMEPRAZOLE 20 MG CAPSULE.DR GT SCH (05:56)
[2017-09-17 06:00] VITALS: BP 128/79
[2017-09-17] MEDS: CLONIDINE HCL 0.1 MG TABLET GT PRN (06:09)
[2017-09-17] MEDS: TRAMADOL HCL 50 MG TABLET GT PRN (06:13)
[2017-09-17 07:25] VITALS: BP 113/65
[2017-09-17] MEDS: VITAMINS A AND D 56.7 GM TUBE TP SCH ×4 (09:00→21:08)
[2017-09-17] MEDS: Z GUARD REMEDY 4 OZ OINT TP SCH ×4 (09:00→21:07)
[2017-09-17] MEDS: HYDROGEN PEROXIDE 480 ML BOTTLE TP SCH ×2 (09:00→21:07)
[2017-09-17] MEDS: MECLIZINE HCL 12.5 MG TABLET GT SCH ×2 (09:42→21:07)
[2017-09-17] MEDS: FERROUS SULFATE - FOR SA ONLY 330 MG/7.5 ML UDC GT SCH (09:42)
[2017-09-17] MEDS: POLYETHYLENE GLYCOL 3350 17 GM POWD.PACK GT SCH (09:42)
[2017-09-17] MEDS: METOCLOPRAMIDE HCL 10 MG/10 ML UDC GT SCH ×3 (09:43→16:54)
[2017-09-17 12:00] VITALS: BP 118/82
[2017-09-17] MEDS: FIBERSOURCE HN 1,000 ML BOTTLE GT PRN (14:21)
[2017-09-17] MEDS: CEFTRIAXONE 1 G in IV D5W 50 ML IV SCH (15:18)
[2017-09-17 18:21] VITALS: BP 122/74
[2017-09-17 19:53] VITALS: BP 142/73
[2017-09-17] MEDS: ASCORBIC ACID 500 MG TABLET GT SCH (21:07)
[2017-09-17] MEDS: CYANOCOBALAMIN 500 MCG TABLET GT SCH (21:07)
[2017-09-17] MEDS: SENNOSIDES 8.6 MG TABLET GT SCH (21:07)
[2017-09-17] MEDS: ZINC SULFATE 220 MG CAPSULE GT SCH (21:07)
[2017-09-17] MEDS: DULOXETINE HCL 30 MG CAPSULE.DR GT SCH (21:08)
[2017-09-18] VITALS (7 sets, daily range): BP systolic 100–132; BP diastolic 58–89
[2017-09-18] MEDS: IPRATROPIUM NEB FS 0.5 MG/2.5 ML AMPUL.NEB NEB SCH ×4 (01:39→19:30)
[2017-09-18] MEDS: ALBUTEROL HALF STRENGTH 1.25 MG/3 ML VIAL.NEB NEB SCH ×4 (01:39→19:30)
[2017-09-18] MEDS: OMEPRAZOLE 20 MG CAPSULE.DR GT SCH (05:54)
[2017-09-18] MEDS: LEVOTHYROXINE SODIUM 25 MCG TABLET GT SCH (05:54)
[2017-09-18] MEDS: MECLIZINE HCL 12.5 MG TABLET GT SCH ×2 (08:53→21:00)
[2017-09-18] MEDS: FERROUS SULFATE - FOR SA ONLY 330 MG/7.5 ML UDC GT SCH (08:54)
[2017-09-18] MEDS: POLYETHYLENE GLYCOL 3350 17 GM POWD.PACK GT SCH (08:54)
[2017-09-18] MEDS: METOCLOPRAMIDE HCL 10 MG/10 ML UDC GT SCH ×3 (08:54→17:49)
[2017-09-18] MEDS: HYDROGEN PEROXIDE 480 ML BOTTLE TP SCH ×2 (09:00→21:00)
[2017-09-18] MEDS: Z GUARD REMEDY 4 OZ OINT TP SCH ×4 (09:00→21:00)
[2017-09-18] MEDS: ACETAMINOPHEN 650 MG/20 ML UDC- FOR SA PATIENTS ONLY GT PRN (10:35)
--- NOTE | 2017-09-18 11:30 | NUR ---
Seen and examined by Dr. Charla Fontanez, new order given to do BC x2 patient has T of 101 this morning. Resident continue to received ATB Rocephin no adverse reaction noted.
[2017-09-18] MEDS: CEFTRIAXONE 1 G in IV D5W 50 ML IV SCH (15:18)
--- NOTE | 2017-09-18 17:00 | NUR ---
CONCRETE MIXER TRUCK DRIVER/SUBACUTE PER ID, ROCEPHIN DISCONTINUED, ORDERED MERREM 500 MG IV Q 8 HOURS FOR 10 DAYS. ALSO PT WILL HAVE CHEST XRAY AND BMP IN AM. ORDERS RECEIVED TO DO BLADDER SCAN, IF >300 TO INSERT GIL CATH. WILL FOLLOW THROUGH.
[2017-09-18] MEDS: CLONIDINE HCL 0.1 MG TABLET GT PRN (17:50)
--- NOTE | 2017-09-18 17:54 | NUR ---
IT DESKTOP SUPPORT SPECIALIST: BLADDER SCAN DONE, 124 ML. WILL CONTINUE TO MONITOR AND ASSESS
[2017-09-18] MEDS: CYANOCOBALAMIN 500 MCG TABLET GT SCH (21:00)
[2017-09-18] MEDS: MEROPENEM 500 MG in IV NS 0.9% 50 ML IV SCH (21:00)
[2017-09-18] MEDS: ASCORBIC ACID 500 MG TABLET GT SCH (21:00)
[2017-09-18] MEDS: SENNOSIDES 8.6 MG TABLET GT SCH (21:00)
[2017-09-18] MEDS: ZINC SULFATE 220 MG CAPSULE GT SCH (21:00)
[2017-09-18] MEDS ORDERED: MEROPENEM 500 MG in IV NS 0.9% 50 ML IV SCH (21:00)
[2017-09-18] MEDS: DULOXETINE HCL 30 MG CAPSULE.DR GT SCH (22:13)
[2017-09-18] MEDS: FIBERSOURCE HN 1,000 ML BOTTLE GT PRN (23:20)
[2017-09-19] VITALS: BP 120/79
[2017-09-19] MEDS: ALBUTEROL HALF STRENGTH 1.25 MG/3 ML VIAL.NEB NEB SCH ×4 (01:48→19:43)
[2017-09-19] MEDS: IPRATROPIUM NEB FS 0.5 MG/2.5 ML AMPUL.NEB NEB SCH ×4 (01:48→19:43)
[2017-09-19] MEDS: LEVOTHYROXINE SODIUM 25 MCG TABLET GT SCH (05:54)
[2017-09-19] MEDS: OMEPRAZOLE 20 MG CAPSULE.DR GT SCH (05:54)
[2017-09-19 06:00] VITALS: BP 112/70
[2017-09-19 06:51] LABS: BASOPHILS % (AUTO) 0.3 % (0.0-2.0); EOSINOPHILS # (AUTO) 0.4 /CMM (0.0-0.7); EOSINOPHILS % (AUTO) 2.6 % (0.0-6.0); HEMATOCRIT 32 % (33-45); HEMOGLOBIN 10.4 g/dL (11.5-14.8); LYMPHOCYTES # (AUTO) 1.5 /CMM (0.8-4.8); LYMPHOCYTES % (AUTO) 10.4 % (20.0-44.0); MEAN CORPUSCULAR HEMOGLOBIN 30 PG (26.0-33.0); MEAN CORPUSCULAR HGB CONC 33 g/dl (31.0-36.0); MEAN CORPUSCULAR VOLUME 92 fL (82-100); MONOCYTES # (AUTO) 1.2 /CMM (0.1-1.30); MONOCYTES % (AUTO) 8.3 % (2.0-12.0); NEUTROPHILS # (AUTO) 11.2 /CMM (1.8-8.9); NEUTROPHILS % (AUTO) 78.4 % (43.0-81.0); PLATELET COUNT (AUTO) 330 /CMM (150-450); RDW COEFFICIENT OF VARIATION 16.6 (11.5-15.0); RED BLOOD CELL COUNT(AUTO) 3.47 MIL/uL (4.0-5.2); WHITE BLOOD COUNT (AUTO) 14.2 K/uL (4.3-11.0)
[2017-09-19 07:21] LABS: CALCIUM, SERUM 9.3 mg/dL (8.5-10.1); CARBON DIOXIDE 32 mmol/L (21-32); CHLORIDE 104 mmol/L (98-107); CREATININE 0.5 mg/dL (0.6-1.3); GLUCOSE 113 mg/dL (74-106); MAGNESIUM 2.2 mg/dL (1.8-2.4); PHOSPHORUS 2.5 mg/dL (2.5-4.9); POTASSIUM 4.1 mmol/L (3.5-5.1); SODIUM SERUM 142 mmol/L (136-145); UREA NITROGEN, BLOOD 19 mg/dL (7-18)
[2017-09-19 07:51] VITALS: BP 115/85
[2017-09-19] MEDS: MEROPENEM 500 MG in IV NS 0.9% 50 ML IV SCH ×2 (09:27→21:00)
--- NOTE | 2017-09-19 09:34 | NUR ---
Chest X-Ray and lab results relayed to and no new orders noted.
[2017-09-19] MEDS: POLYETHYLENE GLYCOL 3350 17 GM POWD.PACK GT SCH (09:52)
[2017-09-19] MEDS: FERROUS SULFATE - FOR SA ONLY 330 MG/7.5 ML UDC GT SCH (09:52)
[2017-09-19] MEDS: METOCLOPRAMIDE HCL 10 MG/10 ML UDC GT SCH ×3 (09:52→16:51)
[2017-09-19] MEDS: HYDROGEN PEROXIDE 480 ML BOTTLE TP SCH ×2 (09:52→21:16)
[2017-09-19] MEDS: Z GUARD REMEDY 4 OZ OINT TP SCH ×4 (09:52→21:16)
[2017-09-19] MEDS: MECLIZINE HCL 12.5 MG TABLET GT SCH ×2 (09:52→21:15)
--- NOTE | 2017-09-19 13:29 | NUR ---
ordered to d/c fibersource HN via GT @65ml/hr x 20 hrs to provide 1300ml/1560 KCAL per 24 hrs and start Fibersource HN via GT @60ml/hr x 20hrs to provide 1200ml/1440KCAL per 24 hrs.New orders noted and carried out.
[2017-09-19 18:13] VITALS: BP 119/65
[2017-09-19 19:47] VITALS: BP 113/68
[2017-09-19] MEDS: ASCORBIC ACID 500 MG TABLET GT SCH (21:15)
[2017-09-19] MEDS: SENNOSIDES 8.6 MG TABLET GT SCH (21:15)
[2017-09-19] MEDS: CYANOCOBALAMIN 500 MCG TABLET GT SCH (21:15)
[2017-09-19] MEDS: DULOXETINE HCL 30 MG CAPSULE.DR GT SCH (21:16)
[2017-09-19] MEDS: ZINC SULFATE 220 MG CAPSULE GT SCH (21:16)
[2017-09-20 00:28] VITALS: BP 116/72
[2017-09-20] MEDS: ALBUTEROL HALF STRENGTH 1.25 MG/3 ML VIAL.NEB NEB SCH ×4 (01:46→19:40)
[2017-09-20] MEDS: IPRATROPIUM NEB FS 0.5 MG/2.5 ML AMPUL.NEB NEB SCH ×4 (01:46→19:40)
[2017-09-20] MEDS: LEVOTHYROXINE SODIUM 25 MCG TABLET GT SCH (05:56)
[2017-09-20] MEDS: OMEPRAZOLE 20 MG CAPSULE.DR GT SCH (05:56)
[2017-09-20 06:12] VITALS: BP 122/69
[2017-09-20 07:56] VITALS: BP 143/79
[2017-09-20] MEDS: METOCLOPRAMIDE HCL 10 MG/10 ML UDC GT SCH ×3 (08:22→17:00)
[2017-09-20] MEDS: POLYETHYLENE GLYCOL 3350 17 GM POWD.PACK GT SCH (08:22)
[2017-09-20] MEDS: MECLIZINE HCL 12.5 MG TABLET GT SCH ×2 (08:22→21:16)
[2017-09-20] MEDS: FERROUS SULFATE - FOR SA ONLY 330 MG/7.5 ML UDC GT SCH (08:22)
[2017-09-20] MEDS: FIBERSOURCE HN 1,000 ML BOTTLE GT PRN (08:35)
[2017-09-20] MEDS: MEROPENEM 500 MG in IV NS 0.9% 50 ML IV SCH ×3 (08:55→23:37)
[2017-09-20] MEDS: Z GUARD REMEDY 4 OZ OINT TP SCH ×4 (09:00→21:17)
[2017-09-20] MEDS: HYDROGEN PEROXIDE 480 ML BOTTLE TP SCH ×2 (09:00→21:16)
[2017-09-20 12:55] VITALS: BP 135/77
[2017-09-20] MEDS: CLONIDINE HCL 0.1 MG TABLET GT PRN ×2 (12:55→18:00)
[2017-09-20 18:00] VITALS: BP 149/71
[2017-09-20] MEDS: CYANOCOBALAMIN 500 MCG TABLET GT SCH (21:16)
[2017-09-20] MEDS: SENNOSIDES 8.6 MG TABLET GT SCH (21:16)
[2017-09-20] MEDS: ZINC SULFATE 220 MG CAPSULE GT SCH (21:16)
[2017-09-20] MEDS: ASCORBIC ACID 500 MG TABLET GT SCH (21:16)
[2017-09-20] MEDS: DULOXETINE HCL 30 MG CAPSULE.DR GT SCH (21:17)
[2017-09-20 23:55] VITALS: BP 159/79
[2017-09-21 00:30] VITALS: BP 118/74
[2017-09-21] MEDS: IPRATROPIUM NEB FS 0.5 MG/2.5 ML AMPUL.NEB NEB SCH ×4 (01:47→19:09)
[2017-09-21] MEDS: ALBUTEROL HALF STRENGTH 1.25 MG/3 ML VIAL.NEB NEB SCH ×4 (01:47→19:09)
[2017-09-21] MEDS: FIBERSOURCE HN 1,000 ML BOTTLE GT PRN (03:01)
[2017-09-21] MEDS: OMEPRAZOLE 20 MG CAPSULE.DR GT SCH (05:33)
[2017-09-21] MEDS: LEVOTHYROXINE SODIUM 25 MCG TABLET GT SCH (05:33)
[2017-09-21 06:15] VITALS: BP 106/53
[2017-09-21] MEDS: MEROPENEM 500 MG in IV NS 0.9% 50 ML IV SCH ×2 (08:22→15:34)
[2017-09-21 09:00] VITALS: BP 125/59
[2017-09-21] MEDS: FERROUS SULFATE - FOR SA ONLY 330 MG/7.5 ML UDC GT SCH (09:00)
[2017-09-21] MEDS: Z GUARD REMEDY 4 OZ OINT TP SCH ×4 (09:00→20:27)
[2017-09-21] MEDS: HYDROGEN PEROXIDE 480 ML BOTTLE TP SCH ×2 (09:00→20:27)
[2017-09-21] MEDS: POLYETHYLENE GLYCOL 3350 17 GM POWD.PACK GT SCH (09:00)
[2017-09-21] MEDS: METOCLOPRAMIDE HCL 10 MG/10 ML UDC GT SCH ×3 (09:00→17:47)
[2017-09-21] MEDS: MECLIZINE HCL 12.5 MG TABLET GT SCH ×2 (09:00→20:26)
[2017-09-21 12:00] VITALS: BP 128/60
[2017-09-21] MEDS: ACETAMINOPHEN 650 MG/20 ML UDC- FOR SA PATIENTS ONLY GT PRN (17:53)
[2017-09-21 18:00] VITALS: BP 119/68
[2017-09-21] MEDS: CYANOCOBALAMIN 500 MCG TABLET GT SCH (20:25)
[2017-09-21] MEDS: SENNOSIDES 8.6 MG TABLET GT SCH (20:26)
[2017-09-21] MEDS: ASCORBIC ACID 500 MG TABLET GT SCH (20:27)
[2017-09-21] MEDS: ZINC SULFATE 220 MG CAPSULE GT SCH (20:27)
[2017-09-21] MEDS: DULOXETINE HCL 30 MG CAPSULE.DR GT SCH (22:31)
[2017-09-21 23:58] VITALS: BP 128/78
[2017-09-22] MEDS: MEROPENEM 500 MG in IV NS 0.9% 50 ML IV SCH ×4 (00:05→23:43)
[2017-09-22 00:21] VITALS: BP 123/68
[2017-09-22] MEDS: ALBUTEROL HALF STRENGTH 1.25 MG/3 ML VIAL.NEB NEB SCH ×4 (01:51→19:30)
[2017-09-22] MEDS: IPRATROPIUM NEB FS 0.5 MG/2.5 ML AMPUL.NEB NEB SCH ×4 (01:51→19:30)
[2017-09-22] MEDS: FIBERSOURCE HN 1,000 ML BOTTLE GT PRN ×2 (02:13→20:32)
[2017-09-22] MEDS: LEVOTHYROXINE SODIUM 25 MCG TABLET GT SCH (05:23)
[2017-09-22] MEDS: OMEPRAZOLE 20 MG CAPSULE.DR GT SCH (05:23)
[2017-09-22 06:44] VITALS: BP 130/72
[2017-09-22] MEDS: FERROUS SULFATE - FOR SA ONLY 330 MG/7.5 ML UDC GT SCH (09:40)
[2017-09-22] MEDS: POLYETHYLENE GLYCOL 3350 17 GM POWD.PACK GT SCH (09:40)
[2017-09-22] MEDS: METOCLOPRAMIDE HCL 10 MG/10 ML UDC GT SCH ×3 (09:40→17:53)
[2017-09-22] MEDS: MECLIZINE HCL 12.5 MG TABLET GT SCH ×2 (09:40→20:31)
[2017-09-22] MEDS: HYDROGEN PEROXIDE 480 ML BOTTLE TP SCH ×2 (09:40→20:32)
[2017-09-22] MEDS: Z GUARD REMEDY 4 OZ OINT TP SCH ×4 (09:41→20:32)
--- NOTE | 2017-09-22 12:00 | NUR ---
INTERDISCIPLINARY TEAM CONFERENCE (IDT) was held today. No family member attended the conference. Dr. John and the interdisciplinary team reviewed the current plan of care in detail. New orders were reviewed. Resident will continue the same medications . New orders were given to do TSH on 09/29/17.
[2017-09-22 12:30] VITALS: BP 136/80
[2017-09-22] MEDS: ACETAMINOPHEN 650 MG/20 ML UDC- FOR SA PATIENTS ONLY GT PRN (13:15)
[2017-09-22 18:00] VITALS: BP 130/67
[2017-09-22] MEDS: ASCORBIC ACID 500 MG TABLET GT SCH (20:31)
[2017-09-22] MEDS: CYANOCOBALAMIN 500 MCG TABLET GT SCH (20:31)
[2017-09-22] MEDS: SENNOSIDES 8.6 MG TABLET GT SCH (20:31)
[2017-09-22] MEDS: MAGNESIUM HYDROXIDE 30 ML UDC GT PRN (20:32)
[2017-09-22] MEDS: ZINC SULFATE 220 MG CAPSULE GT SCH (20:32)
[2017-09-22] MEDS: DULOXETINE HCL 30 MG CAPSULE.DR GT SCH (22:41)
[2017-09-22 23:15] VITALS: BP 136/76
[2017-09-23 00:51] VITALS: BP 126/72
[2017-09-23] MEDS: ALBUTEROL HALF STRENGTH 1.25 MG/3 ML VIAL.NEB NEB SCH ×4 (01:19→20:02)
[2017-09-23] MEDS: IPRATROPIUM NEB FS 0.5 MG/2.5 ML AMPUL.NEB NEB SCH ×4 (01:19→20:02)
[2017-09-23] MEDS: OMEPRAZOLE 20 MG CAPSULE.DR GT SCH (05:39)
[2017-09-23] MEDS: LEVOTHYROXINE SODIUM 25 MCG TABLET GT SCH (05:39)
[2017-09-23] MEDS: ACETAMINOPHEN 650 MG/20 ML UDC- FOR SA PATIENTS ONLY GT PRN (05:40)
[2017-09-23 06:13] VITALS: BP 128/73
--- NOTE | 2017-09-23 06:29 | NUR ---
Pt had temp 101,cooling measures provided and Tylenol given as ordered.Pt still on IV antibiotic Merrem 500mg Q 8hrs for UTI.Will continue to monitor.Will endorse .
[2017-09-23] MEDS: MEROPENEM 500 MG in IV NS 0.9% 50 ML IV SCH ×3 (07:34→23:34)
[2017-09-23 08:02] VITALS: BP 131/77
[2017-09-23] MEDS: FERROUS SULFATE - FOR SA ONLY 330 MG/7.5 ML UDC GT SCH (09:00)
[2017-09-23] MEDS: HYDROGEN PEROXIDE 480 ML BOTTLE TP SCH ×2 (09:00→20:23)
[2017-09-23] MEDS: METOCLOPRAMIDE HCL 10 MG/10 ML UDC GT SCH ×3 (09:00→17:50)
[2017-09-23] MEDS: MECLIZINE HCL 12.5 MG TABLET GT SCH ×2 (09:00→20:23)
[2017-09-23] MEDS: Z GUARD REMEDY 4 OZ OINT TP SCH ×4 (09:00→20:23)
[2017-09-23] MEDS: POLYETHYLENE GLYCOL 3350 17 GM POWD.PACK GT SCH (09:00)
[2017-09-23 12:00] VITALS: BP 125/78
[2017-09-23 18:52] VITALS: BP 139/67
[2017-09-23 19:34] VITALS: BP 144/77
[2017-09-23] MEDS: CYANOCOBALAMIN 500 MCG TABLET GT SCH (20:23)
[2017-09-23] MEDS: ZINC SULFATE 220 MG CAPSULE GT SCH (20:23)
[2017-09-23] MEDS: ASCORBIC ACID 500 MG TABLET GT SCH (20:23)
[2017-09-23] MEDS: SENNOSIDES 8.6 MG TABLET GT SCH (20:23)
[2017-09-23] MEDS: FIBERSOURCE HN 1,000 ML BOTTLE GT PRN (20:47)
[2017-09-23] MEDS: DULOXETINE HCL 30 MG CAPSULE.DR GT SCH (21:45)
[2017-09-23] MEDS: TRAMADOL HCL 50 MG TABLET GT PRN (21:45)
[2017-09-24] VITALS: BP 125/72
[2017-09-24] MEDS: IPRATROPIUM NEB FS 0.5 MG/2.5 ML AMPUL.NEB NEB SCH ×4 (02:46→19:56)
[2017-09-24] MEDS: ALBUTEROL HALF STRENGTH 1.25 MG/3 ML VIAL.NEB NEB SCH ×4 (02:46→19:56)
[2017-09-24] MEDS: LEVOTHYROXINE SODIUM 25 MCG TABLET GT SCH (05:28)
[2017-09-24] MEDS: OMEPRAZOLE 20 MG CAPSULE.DR GT SCH (05:28)
[2017-09-24 06:00] VITALS: BP 120/68
[2017-09-24] MEDS: MEROPENEM 500 MG in IV NS 0.9% 50 ML IV SCH ×3 (07:34→23:34)
[2017-09-24 08:29] VITALS: BP 90/56
[2017-09-24] MEDS: MECLIZINE HCL 12.5 MG TABLET GT SCH ×2 (08:50→21:50)
[2017-09-24] MEDS: POLYETHYLENE GLYCOL 3350 17 GM POWD.PACK GT SCH (08:51)
[2017-09-24] MEDS: FERROUS SULFATE - FOR SA ONLY 330 MG/7.5 ML UDC GT SCH (08:51)
[2017-09-24] MEDS: METOCLOPRAMIDE HCL 10 MG/10 ML UDC GT SCH ×3 (08:51→17:32)
[2017-09-24] MEDS: Z GUARD REMEDY 4 OZ OINT TP SCH ×4 (08:52→21:51)
[2017-09-24] MEDS: HYDROGEN PEROXIDE 480 ML BOTTLE TP SCH ×2 (08:52→21:50)
[2017-09-24 12:00] VITALS: BP 90/56
[2017-09-24] MEDS: ACETAMINOPHEN 650 MG/20 ML UDC- FOR SA PATIENTS ONLY GT PRN (17:33)
[2017-09-24 18:00] VITALS: BP 100/62
[2017-09-24 19:41] VITALS: BP 124/61
[2017-09-24] MEDS: ASCORBIC ACID 500 MG TABLET GT SCH (21:50)
[2017-09-24] MEDS: ZINC SULFATE 220 MG CAPSULE GT SCH (21:50)
[2017-09-24] MEDS: CYANOCOBALAMIN 500 MCG TABLET GT SCH (21:50)
[2017-09-24] MEDS: SENNOSIDES 8.6 MG TABLET GT SCH (21:50)
[2017-09-24] MEDS: DULOXETINE HCL 30 MG CAPSULE.DR GT SCH (21:51)
[2017-09-25] VITALS: BP 132/87
[2017-09-25] MEDS: TRAMADOL HCL 50 MG TABLET GT PRN (00:26)
[2017-09-25] MEDS: ALBUTEROL HALF STRENGTH 1.25 MG/3 ML VIAL.NEB NEB SCH ×4 (02:05→19:53)
[2017-09-25] MEDS: IPRATROPIUM NEB FS 0.5 MG/2.5 ML AMPUL.NEB NEB SCH ×4 (02:05→19:53)
[2017-09-25 06:00] VITALS: BP 128/69
[2017-09-25] MEDS: LEVOTHYROXINE SODIUM 25 MCG TABLET GT SCH (06:18)
[2017-09-25] MEDS: OMEPRAZOLE 20 MG CAPSULE.DR GT SCH (06:18)
[2017-09-25] MEDS: MEROPENEM 500 MG in IV NS 0.9% 50 ML IV SCH ×3 (07:54→23:34)
[2017-09-25 08:14] VITALS: BP 106/66
[2017-09-25] MEDS: HYDROGEN PEROXIDE 480 ML BOTTLE TP SCH ×2 (09:00→20:40)
[2017-09-25] MEDS: Z GUARD REMEDY 4 OZ OINT TP SCH ×4 (09:00→20:40)
[2017-09-25] MEDS: MECLIZINE HCL 12.5 MG TABLET GT SCH ×2 (09:53→20:36)
[2017-09-25] MEDS: POLYETHYLENE GLYCOL 3350 17 GM POWD.PACK GT SCH (09:53)
[2017-09-25] MEDS: FERROUS SULFATE - FOR SA ONLY 330 MG/7.5 ML UDC GT SCH (09:53)
[2017-09-25] MEDS: METOCLOPRAMIDE HCL 10 MG/10 ML UDC GT SCH ×3 (09:53→16:45)
[2017-09-25] MEDS: FIBERSOURCE HN 1,000 ML BOTTLE GT PRN (12:17)
[2017-09-25] MEDS: CLONIDINE HCL 0.1 MG TABLET GT PRN ×2 (12:45→16:46)
[2017-09-25 12:48] VITALS: BP 116/70
[2017-09-25] MEDS: ACETAMINOPHEN 650 MG/20 ML UDC- FOR SA PATIENTS ONLY GT PRN (16:45)
[2017-09-25 19:40] VITALS: BP 133/74
[2017-09-25] MEDS: SENNOSIDES 8.6 MG TABLET GT SCH (20:36)
[2017-09-25] MEDS: CYANOCOBALAMIN 500 MCG TABLET GT SCH (20:36)
[2017-09-25] MEDS: ASCORBIC ACID 500 MG TABLET GT SCH (20:38)
[2017-09-25] MEDS: ZINC SULFATE 220 MG CAPSULE GT SCH (20:39)
[2017-09-25] MEDS: DULOXETINE HCL 30 MG CAPSULE.DR GT SCH (21:27)
[2017-09-26 00:22] VITALS: BP 126/70
[2017-09-26] MEDS: IPRATROPIUM NEB FS 0.5 MG/2.5 ML AMPUL.NEB NEB SCH ×4 (02:11→19:44)
[2017-09-26] MEDS: ALBUTEROL HALF STRENGTH 1.25 MG/3 ML VIAL.NEB NEB SCH ×4 (02:11→19:44)
[2017-09-26] MEDS: OMEPRAZOLE 20 MG CAPSULE.DR GT SCH (05:15)
[2017-09-26] MEDS: LEVOTHYROXINE SODIUM 25 MCG TABLET GT SCH (05:15)
[2017-09-26 06:13] VITALS: BP 130/72
[2017-09-26] MEDS: MEROPENEM 500 MG in IV NS 0.9% 50 ML IV SCH ×3 (07:34→23:34)
[2017-09-26 07:49] VITALS: BP 117/64
[2017-09-26] MEDS: Z GUARD REMEDY 4 OZ OINT TP SCH ×4 (08:42→20:41)
[2017-09-26] MEDS: MECLIZINE HCL 12.5 MG TABLET GT SCH ×2 (08:42→20:41)
[2017-09-26] MEDS: POLYETHYLENE GLYCOL 3350 17 GM POWD.PACK GT SCH (08:42)
[2017-09-26] MEDS: FERROUS SULFATE - FOR SA ONLY 330 MG/7.5 ML UDC GT SCH (08:42)
[2017-09-26] MEDS: METOCLOPRAMIDE HCL 10 MG/10 ML UDC GT SCH ×3 (08:42→16:45)
[2017-09-26] MEDS: HYDROGEN PEROXIDE 480 ML BOTTLE TP SCH ×2 (08:42→20:41)
[2017-09-26] MEDS: FIBERSOURCE HN 1,000 ML BOTTLE GT PRN (10:33)
[2017-09-26 12:00] VITALS: BP 139/54
[2017-09-26 18:13] VITALS: BP 126/64
[2017-09-26 20:06] VITALS: BP 123/70
[2017-09-26] MEDS: ASCORBIC ACID 500 MG TABLET GT SCH (20:41)
[2017-09-26] MEDS: CYANOCOBALAMIN 500 MCG TABLET GT SCH (20:41)
[2017-09-26] MEDS: SENNOSIDES 8.6 MG TABLET GT SCH (20:41)
[2017-09-26] MEDS: ZINC SULFATE 220 MG CAPSULE GT SCH (20:41)
[2017-09-26] MEDS: DULOXETINE HCL 30 MG CAPSULE.DR GT SCH (21:40)
[2017-09-27 00:27] VITALS: BP 124/77
[2017-09-27] MEDS: ALBUTEROL HALF STRENGTH 1.25 MG/3 ML VIAL.NEB NEB SCH ×4 (01:52→19:32)
[2017-09-27] MEDS: IPRATROPIUM NEB FS 0.5 MG/2.5 ML AMPUL.NEB NEB SCH ×4 (01:52→19:32)
[2017-09-27] MEDS: LEVOTHYROXINE SODIUM 25 MCG TABLET GT SCH (05:23)
[2017-09-27] MEDS: OMEPRAZOLE 20 MG CAPSULE.DR GT SCH (05:23)
[2017-09-27 06:33] VITALS: BP 130/72
[2017-09-27] MEDS: FIBERSOURCE HN 1,000 ML BOTTLE GT PRN (06:54)
[2017-09-27] MEDS: MEROPENEM 500 MG in IV NS 0.9% 50 ML IV SCH ×3 (07:34→23:34)
[2017-09-27 08:10] VITALS: BP 125/73
[2017-09-27] MEDS: Z GUARD REMEDY 4 OZ OINT TP SCH ×4 (08:33→20:39)
[2017-09-27] MEDS: FERROUS SULFATE - FOR SA ONLY 330 MG/7.5 ML UDC GT SCH (08:33)
[2017-09-27] MEDS: POLYETHYLENE GLYCOL 3350 17 GM POWD.PACK GT SCH (08:33)
[2017-09-27] MEDS: MECLIZINE HCL 12.5 MG TABLET GT SCH ×2 (08:33→20:38)
[2017-09-27] MEDS: HYDROGEN PEROXIDE 480 ML BOTTLE TP SCH ×2 (08:33→20:38)
[2017-09-27] MEDS: METOCLOPRAMIDE HCL 10 MG/10 ML UDC GT SCH ×3 (08:33→17:47)
[2017-09-27 12:00] VITALS: BP 122/74
[2017-09-27] MEDS: ACETAMINOPHEN 650 MG/20 ML UDC- FOR SA PATIENTS ONLY GT PRN (17:51)
[2017-09-27] MEDS: CLONIDINE HCL 0.1 MG TABLET GT PRN (17:52)
[2017-09-27 17:53] VITALS: BP 128/78
[2017-09-27 19:47] VITALS: BP 110/66
[2017-09-27] MEDS: ASCORBIC ACID 500 MG TABLET GT SCH (20:38)
[2017-09-27] MEDS: SENNOSIDES 8.6 MG TABLET GT SCH (20:38)
[2017-09-27] MEDS: ZINC SULFATE 220 MG CAPSULE GT SCH (20:38)
[2017-09-27] MEDS: CYANOCOBALAMIN 500 MCG TABLET GT SCH (20:38)
[2017-09-27] MEDS: DULOXETINE HCL 30 MG CAPSULE.DR GT SCH (21:54)
[2017-09-28 00:45] VITALS: BP 118/60
[2017-09-28] MEDS: FIBERSOURCE HN 1,000 ML BOTTLE GT PRN (01:58)
[2017-09-28] MEDS: ALBUTEROL HALF STRENGTH 1.25 MG/3 ML VIAL.NEB NEB SCH ×4 (02:18→19:47)
[2017-09-28] MEDS: IPRATROPIUM NEB FS 0.5 MG/2.5 ML AMPUL.NEB NEB SCH ×4 (02:18→19:47)
[2017-09-28] MEDS: OMEPRAZOLE 20 MG CAPSULE.DR GT SCH (05:10)
[2017-09-28] MEDS: LEVOTHYROXINE SODIUM 25 MCG TABLET GT SCH (05:10)
[2017-09-28 06:36] VITALS: BP 128/60
[2017-09-28] MEDS: MEROPENEM 500 MG in IV NS 0.9% 50 ML IV SCH ×3 (06:41→23:36)
[2017-09-28 07:37] VITALS: BP 143/74
--- NOTE | 2017-09-28 09:00 | NUR ---
STRATEGIC CLIENT EXECUTIVE reported, noted redness to left arm, noted mild swelling to left hand. Elevated left arm, skin is intact at this time. No pain noted. Called and left message to office of Dr. Charla Fontanez, spoke to office staff Sara and will relay message.
[2017-09-28] MEDS: FERROUS SULFATE - FOR SA ONLY 330 MG/7.5 ML UDC GT SCH (09:55)
[2017-09-28] MEDS: METOCLOPRAMIDE HCL 10 MG/10 ML UDC GT SCH ×3 (09:56→17:12)
[2017-09-28] MEDS: HYDROGEN PEROXIDE 480 ML BOTTLE TP SCH ×2 (09:57→21:16)
[2017-09-28] MEDS: POLYETHYLENE GLYCOL 3350 17 GM POWD.PACK GT SCH (09:57)
[2017-09-28] MEDS: Z GUARD REMEDY 4 OZ OINT TP SCH ×2 (09:57→21:16)
[2017-09-28] MEDS: MECLIZINE HCL 12.5 MG TABLET GT SCH ×2 (09:59→21:02)
[2017-09-28 12:00] VITALS: BP 143/74
--- NOTE | 2017-09-28 15:00 | NUR ---
WATER TAXI CAPTAIN Ms. Kelly came and applied siLver nitrate to GT SITE, Patient tolerated proc. well. Has signed consent in chart. Kept GT SITE dry and clean at all times. Closely monitored.
[2017-09-28 18:00] VITALS: BP 143/74
[2017-09-28 19:36] VITALS: BP 135/80
[2017-09-28] MEDS: SENNOSIDES 8.6 MG TABLET GT SCH (21:02)
[2017-09-28] MEDS: CYANOCOBALAMIN 500 MCG TABLET GT SCH (21:02)
[2017-09-28] MEDS: ASCORBIC ACID 500 MG TABLET GT SCH (21:03)
[2017-09-28] MEDS: ZINC SULFATE 220 MG CAPSULE GT SCH (21:16)
[2017-09-28] MEDS: DULOXETINE HCL 30 MG CAPSULE.DR GT SCH (21:16)
[2017-09-29] VITALS (7 sets, daily range): BP systolic 101–156; BP diastolic 60–86
[2017-09-29] MEDS: CLONIDINE HCL 0.1 MG TABLET GT PRN (00:18)
[2017-09-29] MEDS: FIBERSOURCE HN 1,000 ML BOTTLE GT PRN (01:18)
[2017-09-29] MEDS: ALBUTEROL HALF STRENGTH 1.25 MG/3 ML VIAL.NEB NEB SCH ×4 (02:03→20:05)
[2017-09-29] MEDS: IPRATROPIUM NEB FS 0.5 MG/2.5 ML AMPUL.NEB NEB SCH ×4 (02:03→20:05)
[2017-09-29] MEDS: OMEPRAZOLE 20 MG CAPSULE.DR GT SCH (05:50)
[2017-09-29] MEDS: LEVOTHYROXINE SODIUM 25 MCG TABLET GT SCH (05:50)
[2017-09-29] MEDS: FERROUS SULFATE - FOR SA ONLY 330 MG/7.5 ML UDC GT SCH (09:16)
[2017-09-29] MEDS: MECLIZINE HCL 12.5 MG TABLET GT SCH ×2 (09:16→21:30)
[2017-09-29] MEDS: POLYETHYLENE GLYCOL 3350 17 GM POWD.PACK GT SCH (09:17)
[2017-09-29] MEDS: Z GUARD REMEDY 4 OZ OINT TP SCH ×2 (09:17→21:30)
[2017-09-29] MEDS: HYDROGEN PEROXIDE 480 ML BOTTLE TP SCH ×2 (09:17→21:30)
[2017-09-29] MEDS: METOCLOPRAMIDE HCL 10 MG/10 ML UDC GT SCH ×3 (09:18→16:26)
[2017-09-29] MEDS: ZINC SULFATE 220 MG CAPSULE GT SCH (21:30)
[2017-09-29] MEDS: DULOXETINE HCL 30 MG CAPSULE.DR GT SCH (21:30)
[2017-09-29] MEDS: ASCORBIC ACID 500 MG TABLET GT SCH (21:30)
[2017-09-29] MEDS: CYANOCOBALAMIN 500 MCG TABLET GT SCH (21:30)
[2017-09-29] MEDS: SENNOSIDES 8.6 MG TABLET GT SCH (21:30)
[2017-09-30 00:10] VITALS: BP 144/76
[2017-09-30] MEDS: ALBUTEROL HALF STRENGTH 1.25 MG/3 ML VIAL.NEB NEB SCH ×4 (01:38→19:47)
[2017-09-30] MEDS: IPRATROPIUM NEB FS 0.5 MG/2.5 ML AMPUL.NEB NEB SCH ×4 (01:38→19:46)
[2017-09-30] MEDS: LEVOTHYROXINE SODIUM 25 MCG TABLET GT SCH (05:06)
[2017-09-30] MEDS: OMEPRAZOLE 20 MG CAPSULE.DR GT SCH (05:06)
[2017-09-30] MEDS: FIBERSOURCE HN 1,000 ML BOTTLE GT PRN ×2 (05:07→18:05)
[2017-09-30 06:25] VITALS: BP 128/72
[2017-09-30 07:35] VITALS: BP 130/73
[2017-09-30] MEDS: Z GUARD REMEDY 4 OZ OINT TP SCH ×2 (09:00→21:17)
[2017-09-30] MEDS: FERROUS SULFATE - FOR SA ONLY 330 MG/7.5 ML UDC GT SCH (09:37)
[2017-09-30] MEDS: MECLIZINE HCL 12.5 MG TABLET GT SCH ×2 (09:37→21:17)
[2017-09-30] MEDS: POLYETHYLENE GLYCOL 3350 17 GM POWD.PACK GT SCH (09:39)
[2017-09-30] MEDS: METOCLOPRAMIDE HCL 10 MG/10 ML UDC GT SCH ×3 (09:39→17:50)
[2017-09-30 12:00] VITALS: BP 123/74
[2017-09-30] MEDS: CLONIDINE HCL 0.1 MG TABLET GT PRN ×2 (12:23→18:03)
[2017-09-30] MEDS: HYDROGEN PEROXIDE 480 ML BOTTLE TP SCH ×2 (15:04→21:17)
[2017-09-30 18:00] VITALS: BP 122/75
[2017-09-30 19:50] VITALS: BP 117/78
[2017-09-30] MEDS: CYANOCOBALAMIN 500 MCG TABLET GT SCH (21:17)
[2017-09-30] MEDS: SENNOSIDES 8.6 MG TABLET GT SCH (21:17)
[2017-09-30] MEDS: ZINC SULFATE 220 MG CAPSULE GT SCH (21:17)
[2017-09-30] MEDS: ASCORBIC ACID 500 MG TABLET GT SCH (21:17)
[2017-09-30] MEDS: DULOXETINE HCL 30 MG CAPSULE.DR GT SCH (21:17)
[2017-10-01 00:01] VITALS: BP 122/68
[2017-10-01] MEDS: IPRATROPIUM NEB FS 0.5 MG/2.5 ML AMPUL.NEB NEB SCH ×4 (02:18→20:00)
[2017-10-01] MEDS: ALBUTEROL HALF STRENGTH 1.25 MG/3 ML VIAL.NEB NEB SCH ×4 (02:18→20:00)
[2017-10-01] MEDS: OMEPRAZOLE 20 MG CAPSULE.DR GT SCH (05:03)
[2017-10-01] MEDS: LEVOTHYROXINE SODIUM 25 MCG TABLET GT SCH (05:03)
[2017-10-01 06:11] VITALS: BP 128/72
[2017-10-01 07:53] VITALS: BP 128/75
[2017-10-01] MEDS: Z GUARD REMEDY 4 OZ OINT TP SCH ×2 (09:00→21:27)
[2017-10-01] MEDS: HYDROGEN PEROXIDE 480 ML BOTTLE TP SCH ×2 (09:00→21:27)
[2017-10-01] MEDS: METOCLOPRAMIDE HCL 10 MG/10 ML UDC GT SCH ×3 (09:31→17:03)
[2017-10-01] MEDS: FERROUS SULFATE - FOR SA ONLY 330 MG/7.5 ML UDC GT SCH (09:31)
[2017-10-01] MEDS: MECLIZINE HCL 12.5 MG TABLET GT SCH ×2 (09:31→21:27)
[2017-10-01] MEDS: POLYETHYLENE GLYCOL 3350 17 GM POWD.PACK GT SCH (09:31)
[2017-10-01 14:50] VITALS: BP 122/68
[2017-10-01] MEDS: FIBERSOURCE HN 1,000 ML BOTTLE GT PRN (16:55)
[2017-10-01 18:21] VITALS: BP 118/65
[2017-10-01 19:28] VITALS: BP 141/77
[2017-10-01] MEDS: ASCORBIC ACID 500 MG TABLET GT SCH (21:27)
[2017-10-01] MEDS: SENNOSIDES 8.6 MG TABLET GT SCH (21:27)
[2017-10-01] MEDS: DULOXETINE HCL 30 MG CAPSULE.DR GT SCH (21:27)
[2017-10-01] MEDS: ZINC SULFATE 220 MG CAPSULE GT SCH (21:27)
[2017-10-01] MEDS: CYANOCOBALAMIN 500 MCG TABLET GT SCH (21:27)
[2017-10-02] VITALS: BP 130/63
[2017-10-02] MEDS: IPRATROPIUM NEB FS 0.5 MG/2.5 ML AMPUL.NEB NEB SCH ×4 (01:22→19:37)
[2017-10-02] MEDS: ALBUTEROL HALF STRENGTH 1.25 MG/3 ML VIAL.NEB NEB SCH ×4 (01:22→19:37)
[2017-10-02] MEDS: OMEPRAZOLE 20 MG CAPSULE.DR GT SCH (05:35)
[2017-10-02] MEDS: LEVOTHYROXINE SODIUM 25 MCG TABLET GT SCH (05:35)
[2017-10-02 06:00] VITALS: BP 132/70
[2017-10-02 08:04] VITALS: BP 120/70
[2017-10-02] MEDS: FERROUS SULFATE - FOR SA ONLY 330 MG/7.5 ML UDC GT SCH (09:31)
[2017-10-02] MEDS: MECLIZINE HCL 12.5 MG TABLET GT SCH ×2 (09:31→20:31)
[2017-10-02] MEDS: POLYETHYLENE GLYCOL 3350 17 GM POWD.PACK GT SCH (09:33)
[2017-10-02] MEDS: METOCLOPRAMIDE HCL 10 MG/10 ML UDC GT SCH ×3 (09:34→17:18)
[2017-10-02 12:00] VITALS: BP 103/55
[2017-10-02] MEDS: CLONIDINE HCL 0.1 MG TABLET GT PRN ×2 (12:20→17:18)
[2017-10-02] MEDS: FIBERSOURCE HN 1,000 ML BOTTLE GT PRN (12:23)
[2017-10-02] MEDS: Z GUARD REMEDY 4 OZ OINT TP SCH ×2 (14:00→20:23)
[2017-10-02] MEDS: HYDROGEN PEROXIDE 480 ML BOTTLE TP SCH ×2 (14:00→20:23)
--- NOTE | 2017-10-02 14:00 | NUR ---
Seen and examined by Deneen Hankins NP for Dr. John NNO given.
[2017-10-02 18:38] VITALS: BP 119/53
[2017-10-02 20:04] VITALS: BP 130/64
[2017-10-02] MEDS: CYANOCOBALAMIN 500 MCG TABLET GT SCH (20:23)
[2017-10-02] MEDS: SENNOSIDES 8.6 MG TABLET GT SCH (20:23)
[2017-10-02] MEDS: ZINC SULFATE 220 MG CAPSULE GT SCH (20:23)
[2017-10-02] MEDS: ASCORBIC ACID 500 MG TABLET GT SCH (20:23)
[2017-10-02] MEDS: DULOXETINE HCL 30 MG CAPSULE.DR GT SCH (21:24)
[2017-10-03 00:18] VITALS: BP 122/60
[2017-10-03] MEDS: IPRATROPIUM NEB FS 0.5 MG/2.5 ML AMPUL.NEB NEB SCH ×4 (01:13→19:51)
[2017-10-03] MEDS: ALBUTEROL HALF STRENGTH 1.25 MG/3 ML VIAL.NEB NEB SCH ×4 (01:13→19:51)
[2017-10-03] MEDS: LEVOTHYROXINE SODIUM 25 MCG TABLET GT SCH (05:07)
[2017-10-03] MEDS: OMEPRAZOLE 20 MG CAPSULE.DR GT SCH (05:07)
[2017-10-03] MEDS: FIBERSOURCE HN 1,000 ML BOTTLE GT PRN (06:02)
[2017-10-03 06:05] VITALS: BP 130/60
[2017-10-03 07:34] VITALS: BP 114/79
[2017-10-03] MEDS: FERROUS SULFATE - FOR SA ONLY 330 MG/7.5 ML UDC GT SCH (09:34)
[2017-10-03] MEDS: MECLIZINE HCL 12.5 MG TABLET GT SCH ×2 (09:34→20:13)
[2017-10-03] MEDS: METOCLOPRAMIDE HCL 10 MG/10 ML UDC GT SCH ×3 (09:35→17:20)
[2017-10-03] MEDS: Z GUARD REMEDY 4 OZ OINT TP SCH ×2 (09:35→20:13)
[2017-10-03] MEDS: POLYETHYLENE GLYCOL 3350 17 GM POWD.PACK GT SCH (09:35)
--- NOTE | 2017-10-03 10:15 | NUR ---
Noted redness and swelling on pt's right knee an hour ago, picture was taken. Redness and swelling on right knee has cleared now.
[2017-10-03] MEDS: HYDROGEN PEROXIDE 480 ML BOTTLE TP SCH ×2 (11:15→20:13)
[2017-10-03 13:07] VITALS: BP 96/55
[2017-10-03] MEDS: TRAMADOL HCL 50 MG TABLET GT PRN (18:30)
[2017-10-03 18:51] VITALS: BP 144/67
[2017-10-03 19:27] VITALS: BP 123/62
[2017-10-03] MEDS: CYANOCOBALAMIN 500 MCG TABLET GT SCH (20:13)
[2017-10-03] MEDS: ASCORBIC ACID 500 MG TABLET GT SCH (20:13)
[2017-10-03] MEDS: SENNOSIDES 8.6 MG TABLET GT SCH (20:13)
[2017-10-03] MEDS: ZINC SULFATE 220 MG CAPSULE GT SCH (20:13)
[2017-10-03] MEDS: DULOXETINE HCL 30 MG CAPSULE.DR GT SCH (21:27)
[2017-10-04 00:26] VITALS: BP 130/60
[2017-10-04] MEDS: ALBUTEROL HALF STRENGTH 1.25 MG/3 ML VIAL.NEB NEB SCH ×4 (02:01→19:46)
[2017-10-04] MEDS: IPRATROPIUM NEB FS 0.5 MG/2.5 ML AMPUL.NEB NEB SCH ×4 (02:01→19:46)
[2017-10-04] MEDS: OMEPRAZOLE 20 MG CAPSULE.DR GT SCH (05:24)
[2017-10-04] MEDS: LEVOTHYROXINE SODIUM 25 MCG TABLET GT SCH (05:24)
[2017-10-04] MEDS: FIBERSOURCE HN 1,000 ML BOTTLE GT PRN ×2 (06:16→18:44)
[2017-10-04 06:21] VITALS: BP 122/66
[2017-10-04 07:45] VITALS: BP 142/104
[2017-10-04] MEDS: POLYETHYLENE GLYCOL 3350 17 GM POWD.PACK GT SCH (09:00)
[2017-10-04] MEDS: HYDROGEN PEROXIDE 480 ML BOTTLE TP SCH ×2 (09:00→20:49)
[2017-10-04] MEDS: Z GUARD REMEDY 4 OZ OINT TP SCH ×2 (09:00→20:49)
[2017-10-04] MEDS: FERROUS SULFATE - FOR SA ONLY 330 MG/7.5 ML UDC GT SCH (09:00)
[2017-10-04] MEDS: MECLIZINE HCL 12.5 MG TABLET GT SCH ×2 (09:00→20:49)
[2017-10-04] MEDS: METOCLOPRAMIDE HCL 10 MG/10 ML UDC GT SCH ×3 (09:00→16:39)
[2017-10-04 16:09] VITALS: BP 142/104
[2017-10-04 18:24] VITALS: BP 142/104
--- NOTE | 2017-10-04 19:00 | NUR ---
Seen by Deneen Hankins NP for ROBBY Haile given at this time. Resident was up in [facility] this morning x 2hours well tolerated. Resident was taken to activity room for audio visual stimulation.
[2017-10-04 19:53] VITALS: BP 106/85
[2017-10-04] MEDS: CYANOCOBALAMIN 500 MCG TABLET GT SCH (20:49)
[2017-10-04] MEDS: ASCORBIC ACID 500 MG TABLET GT SCH (20:49)
[2017-10-04] MEDS: ZINC SULFATE 220 MG CAPSULE GT SCH (20:49)
[2017-10-04] MEDS: SENNOSIDES 8.6 MG TABLET GT SCH (20:49)
[2017-10-04] MEDS: DULOXETINE HCL 30 MG CAPSULE.DR GT SCH (21:32)
[2017-10-05 00:11] VITALS: BP 122/60
[2017-10-05] MEDS: ALBUTEROL HALF STRENGTH 1.25 MG/3 ML VIAL.NEB NEB SCH ×4 (01:38→19:36)
[2017-10-05] MEDS: IPRATROPIUM NEB FS 0.5 MG/2.5 ML AMPUL.NEB NEB SCH ×4 (01:38→19:36)
[2017-10-05] MEDS: LEVOTHYROXINE SODIUM 25 MCG TABLET GT SCH (05:21)
[2017-10-05] MEDS: OMEPRAZOLE 20 MG CAPSULE.DR GT SCH (05:21)
[2017-10-05 06:16] VITALS: BP 133/60
[2017-10-05 07:49] VITALS: BP 100/65
[2017-10-05] MEDS: METOCLOPRAMIDE HCL 10 MG/10 ML UDC GT SCH ×3 (09:21→17:00)
[2017-10-05] MEDS: HYDROGEN PEROXIDE 480 ML BOTTLE TP SCH ×2 (09:21→21:18)
[2017-10-05] MEDS: FERROUS SULFATE - FOR SA ONLY 330 MG/7.5 ML UDC GT SCH (09:21)
[2017-10-05] MEDS: POLYETHYLENE GLYCOL 3350 17 GM POWD.PACK GT SCH (09:21)
[2017-10-05] MEDS: MECLIZINE HCL 12.5 MG TABLET GT SCH ×2 (09:21→21:17)
[2017-10-05] MEDS: Z GUARD REMEDY 4 OZ OINT TP SCH ×2 (09:21→21:18)
[2017-10-05 14:07] VITALS: BP 100/65
[2017-10-05 18:33] VITALS: BP 121/70
[2017-10-05 19:50] VITALS: BP 120/75
[2017-10-05] MEDS: ZINC SULFATE 220 MG CAPSULE GT SCH (21:17)
[2017-10-05] MEDS: ASCORBIC ACID 500 MG TABLET GT SCH (21:17)
[2017-10-05] MEDS: SENNOSIDES 8.6 MG TABLET GT SCH (21:17)
[2017-10-05] MEDS: CYANOCOBALAMIN 500 MCG TABLET GT SCH (21:17)
[2017-10-05] MEDS: DULOXETINE HCL 30 MG CAPSULE.DR GT SCH (21:18)
[2017-10-06] VITALS (7 sets, daily range): BP systolic 127–147; BP diastolic 68–88
[2017-10-06] MEDS: ACETAMINOPHEN 650 MG/20 ML UDC- FOR SA PATIENTS ONLY GT PRN ×2 (00:18→18:56)
[2017-10-06] MEDS: IPRATROPIUM NEB FS 0.5 MG/2.5 ML AMPUL.NEB NEB SCH ×4 (02:18→19:34)
[2017-10-06] MEDS: ALBUTEROL HALF STRENGTH 1.25 MG/3 ML VIAL.NEB NEB SCH ×4 (02:18→19:34)
[2017-10-06] MEDS: OMEPRAZOLE 20 MG CAPSULE.DR GT SCH (05:45)
[2017-10-06] MEDS: LEVOTHYROXINE SODIUM 25 MCG TABLET GT SCH (05:45)
[2017-10-06] MEDS: HYDROGEN PEROXIDE 480 ML BOTTLE TP SCH ×2 (08:24→21:14)
[2017-10-06] MEDS: FERROUS SULFATE - FOR SA ONLY 330 MG/7.5 ML UDC GT SCH (08:24)
[2017-10-06] MEDS: POLYETHYLENE GLYCOL 3350 17 GM POWD.PACK GT SCH (08:24)
[2017-10-06] MEDS: MECLIZINE HCL 12.5 MG TABLET GT SCH ×2 (08:24→21:14)
[2017-10-06] MEDS: Z GUARD REMEDY 4 OZ OINT TP SCH ×2 (08:24→21:14)
[2017-10-06] MEDS: METOCLOPRAMIDE HCL 10 MG/10 ML UDC GT SCH ×3 (08:24→16:39)
[2017-10-06] MEDS: SIMETHICONE SUSP 40 MG/0.6 ML BOTTLE GT PRN (16:38)
--- NOTE | 2017-10-06 17:40 | NUR ---
Notified NOAH Diaz ID resident with T 100.8, last night 99.2. New order given for urine culture today, BMP, CBC and CXR in AM. Left a message to Cheli's of patient's change in condition and orders. Cooling measures provided.
[2017-10-06] MEDS: FIBERSOURCE HN 1,000 ML BOTTLE GT PRN (18:55)
[2017-10-06] MEDS: ZINC SULFATE 220 MG CAPSULE GT SCH (21:14)
[2017-10-06] MEDS: DULOXETINE HCL 30 MG CAPSULE.DR GT SCH (21:14)
[2017-10-06] MEDS: ASCORBIC ACID 500 MG TABLET GT SCH (21:14)
[2017-10-06] MEDS: SENNOSIDES 8.6 MG TABLET GT SCH (21:14)
[2017-10-06] MEDS: CYANOCOBALAMIN 500 MCG TABLET GT SCH (21:14)
[2017-10-07 00:09] VITALS: BP 134/85
[2017-10-07] MEDS: IPRATROPIUM NEB FS 0.5 MG/2.5 ML AMPUL.NEB NEB SCH ×4 (01:28→19:30)
[2017-10-07] MEDS: ALBUTEROL HALF STRENGTH 1.25 MG/3 ML VIAL.NEB NEB SCH ×4 (01:28→19:30)
[2017-10-07] MEDS: LEVOTHYROXINE SODIUM 25 MCG TABLET GT SCH (05:22)
[2017-10-07] MEDS: OMEPRAZOLE 20 MG CAPSULE.DR GT SCH (05:22)
[2017-10-07] MEDS: FIBERSOURCE HN 1,000 ML BOTTLE GT PRN (05:58)
[2017-10-07 06:08] VITALS: BP 123/80
[2017-10-07 06:10] LABS: EOSINOPHILS # (AUTO) 0.3 /CMM (0.0-0.7); EOSINOPHILS % (AUTO) 1.7 % (0.0-6.0); HEMATOCRIT 34 % (33-45); HEMOGLOBIN 10.8 g/dL (11.5-14.8); LYMPHOCYTES # (AUTO) 1.8 /CMM (0.8-4.8); LYMPHOCYTES % (AUTO) 12.2 % (20.0-44.0); MEAN CORPUSCULAR HEMOGLOBIN 29 PG (26.0-33.0); MEAN CORPUSCULAR HGB CONC 32 g/dl (31.0-36.0); MEAN CORPUSCULAR VOLUME 91 fL (82-100); MONOCYTES # (AUTO) 1.1 /CMM (0.1-1.30); MONOCYTES % (AUTO) 7.2 % (2.0-12.0); NEUTROPHILS # (AUTO) 11.6 /CMM (1.8-8.9); NEUTROPHILS % (AUTO) 78.9 % (43.0-81.0); PLATELET COUNT (AUTO) 377 /CMM (150-450); RDW COEFFICIENT OF VARIATION 16.2 (11.5-15.0); RED BLOOD CELL COUNT(AUTO) 3.69 MIL/uL (4.0-5.2); WHITE BLOOD COUNT (AUTO) 14.7 K/uL (4.3-11.0)
[2017-10-07 06:17] LABS: CALCIUM, SERUM 9.2 mg/dL (8.5-10.1); CARBON DIOXIDE 28 mmol/L (21-32); CHLORIDE 106 mmol/L (98-107); CREATININE 0.5 mg/dL (0.6-1.3); GLUCOSE 126 mg/dL (74-106); POTASSIUM 4.1 mmol/L (3.5-5.1); SODIUM SERUM 143 mmol/L (136-145); UREA NITROGEN, BLOOD 20 mg/dL (7-18)
[2017-10-07 07:48] VITALS: BP 139/69
[2017-10-07] MEDS: METOCLOPRAMIDE HCL 10 MG/10 ML UDC GT SCH ×3 (09:08→17:03)
[2017-10-07] MEDS: HYDROGEN PEROXIDE 480 ML BOTTLE TP SCH ×2 (09:08→21:48)
[2017-10-07] MEDS: Z GUARD REMEDY 4 OZ OINT TP SCH ×2 (09:08→21:48)
[2017-10-07] MEDS: POLYETHYLENE GLYCOL 3350 17 GM POWD.PACK GT SCH (09:09)
[2017-10-07] MEDS: MECLIZINE HCL 12.5 MG TABLET GT SCH ×2 (09:10→21:48)
[2017-10-07] MEDS: FERROUS SULFATE - FOR SA ONLY 330 MG/7.5 ML UDC GT SCH (09:10)
[2017-10-07 12:00] VITALS: BP 143/52
[2017-10-07 18:00] VITALS: BP 139/69
[2017-10-07 19:34] VITALS: BP 132/65
[2017-10-07] MEDS: ZINC SULFATE 220 MG CAPSULE GT SCH (21:48)
[2017-10-07] MEDS: CYANOCOBALAMIN 500 MCG TABLET GT SCH (21:48)
[2017-10-07] MEDS: DULOXETINE HCL 30 MG CAPSULE.DR GT SCH (21:48)
[2017-10-07] MEDS: ASCORBIC ACID 500 MG TABLET GT SCH (21:48)
[2017-10-07] MEDS: SENNOSIDES 8.6 MG TABLET GT SCH (21:48)
[2017-10-08 00:07] VITALS: BP 137/85
[2017-10-08] MEDS: ALBUTEROL HALF STRENGTH 1.25 MG/3 ML VIAL.NEB NEB SCH ×4 (01:18→19:51)
[2017-10-08] MEDS: IPRATROPIUM NEB FS 0.5 MG/2.5 ML AMPUL.NEB NEB SCH ×4 (01:18→19:50)
[2017-10-08] MEDS: FIBERSOURCE HN 1,000 ML BOTTLE GT PRN ×2 (03:04→23:49)
--- NOTE | 2017-10-08 05:30 | NUR ---
Resident noted with low grade fever 99.8F. Cooling measures provided. Repositioned patient for comfort. Rechecked patient's temperature after an hour latest temp 98.8F. Paged Emily ENGINEERING MGR awaiting call back regarding lab results for BMP, CBC, CXR and preliminary result of urine culture. Endorsed to the next shift accordingly
[2017-10-08] MEDS: LEVOTHYROXINE SODIUM 25 MCG TABLET GT SCH (05:50)
[2017-10-08] MEDS: OMEPRAZOLE 20 MG CAPSULE.DR GT SCH (05:50)
[2017-10-08 06:35] VITALS: BP 133/61
[2017-10-08 08:00] VITALS: BP 108/70
[2017-10-08] MEDS: HYDROGEN PEROXIDE 480 ML BOTTLE TP SCH ×2 (09:07→20:18)
[2017-10-08] MEDS: MECLIZINE HCL 12.5 MG TABLET GT SCH ×2 (09:07→20:17)
[2017-10-08] MEDS: METOCLOPRAMIDE HCL 10 MG/10 ML UDC GT SCH ×3 (09:07→16:40)
[2017-10-08] MEDS: Z GUARD REMEDY 4 OZ OINT TP SCH ×2 (09:07→20:18)
[2017-10-08] MEDS: FERROUS SULFATE - FOR SA ONLY 330 MG/7.5 ML UDC GT SCH (09:07)
[2017-10-08] MEDS: POLYETHYLENE GLYCOL 3350 17 GM POWD.PACK GT SCH (09:07)
--- NOTE | 2017-10-08 14:00 | NUR ---
CORDUROY CUTTING SUPERVISOR Emily called with new order to recollect urine specimen due to contaminants. Obtained urine specimen and sent to lab. Noted and carried out.
[2017-10-08 14:31] VITALS: BP 108/70
[2017-10-08 18:13] VITALS: BP 128/70
[2017-10-08] MEDS: CYANOCOBALAMIN 500 MCG TABLET GT SCH (20:16)
[2017-10-08] MEDS: SENNOSIDES 8.6 MG TABLET GT SCH (20:18)
[2017-10-08] MEDS: ZINC SULFATE 220 MG CAPSULE GT SCH (20:18)
[2017-10-08] MEDS: ASCORBIC ACID 500 MG TABLET GT SCH (20:18)
[2017-10-08 20:22] VITALS: BP 132/58
[2017-10-08] MEDS: DULOXETINE HCL 30 MG CAPSULE.DR GT SCH (21:37)
[2017-10-09 00:08] VITALS: BP 121/67
[2017-10-09] MEDS: ALBUTEROL HALF STRENGTH 1.25 MG/3 ML VIAL.NEB NEB SCH ×4 (01:47→19:43)
[2017-10-09] MEDS: IPRATROPIUM NEB FS 0.5 MG/2.5 ML AMPUL.NEB NEB SCH ×4 (01:47→19:43)
[2017-10-09] MEDS: LEVOTHYROXINE SODIUM 25 MCG TABLET GT SCH (05:20)
[2017-10-09] MEDS: OMEPRAZOLE 20 MG CAPSULE.DR GT SCH (05:20)
[2017-10-09 06:17] VITALS: BP 122/77
[2017-10-09 08:00] VITALS: BP 100/64
[2017-10-09 08:01] VITALS: BP 100/64
[2017-10-09] MEDS: MECLIZINE HCL 12.5 MG TABLET GT SCH ×2 (08:42→20:26)
[2017-10-09] MEDS: POLYETHYLENE GLYCOL 3350 17 GM POWD.PACK GT SCH (08:45)
[2017-10-09] MEDS: FERROUS SULFATE - FOR SA ONLY 330 MG/7.5 ML UDC GT SCH (08:45)
[2017-10-09] MEDS: METOCLOPRAMIDE HCL 10 MG/10 ML UDC GT SCH ×3 (08:45→17:00)
[2017-10-09] MEDS: HYDROGEN PEROXIDE 480 ML BOTTLE TP SCH ×2 (08:45→20:27)
[2017-10-09] MEDS: Z GUARD REMEDY 4 OZ OINT TP SCH ×2 (08:46→20:28)
--- NOTE | 2017-10-09 12:46 | NUR ---
ordered to do procalcitonin today and reviewed the urine culture results but didnt ordered any antibiotics untill pt has a fever.New orders noted and carried out.
[2017-10-09] MEDS: FIBERSOURCE HN 1,000 ML BOTTLE GT PRN (18:29)
--- NOTE | 2017-10-09 20:00 | NUR ---
RN NOTES Received new order from Emily to start Rocephin 1gm ivpb q24hr for UTI. First dose started from Ekit. No a/r noted.
[2017-10-09 20:07] VITALS: BP 148/77
[2017-10-09] MEDS: CYANOCOBALAMIN 500 MCG TABLET GT SCH (20:26)
[2017-10-09] MEDS: SENNOSIDES 8.6 MG TABLET GT SCH (20:26)
[2017-10-09] MEDS: ASCORBIC ACID 500 MG TABLET GT SCH (20:27)
[2017-10-09] MEDS: ZINC SULFATE 220 MG CAPSULE GT SCH (20:27)
[2017-10-09] MEDS ORDERED: CEFTRIAXONE 1 G in IV D5W 50 ML IV SCH (21:00)
[2017-10-09] MEDS: DULOXETINE HCL 30 MG CAPSULE.DR GT SCH (22:18)
[2017-10-10 00:24] VITALS: BP 135/79
[2017-10-10] MEDS: ALBUTEROL HALF STRENGTH 1.25 MG/3 ML VIAL.NEB NEB SCH ×4 (01:45→19:43)
[2017-10-10] MEDS: IPRATROPIUM NEB FS 0.5 MG/2.5 ML AMPUL.NEB NEB SCH ×4 (01:45→19:43)
[2017-10-10] MEDS: LEVOTHYROXINE SODIUM 25 MCG TABLET GT SCH (06:17)
[2017-10-10] MEDS: OMEPRAZOLE 20 MG CAPSULE.DR GT SCH (06:17)
[2017-10-10 06:19] VITALS: BP 135/79
[2017-10-10 07:41] VITALS: BP 103/60
[2017-10-10] MEDS: MECLIZINE HCL 12.5 MG TABLET GT SCH ×2 (08:57→20:19)
[2017-10-10] MEDS: POLYETHYLENE GLYCOL 3350 17 GM POWD.PACK GT SCH (08:57)
[2017-10-10] MEDS: HYDROGEN PEROXIDE 480 ML BOTTLE TP SCH ×2 (08:57→20:22)
[2017-10-10] MEDS: FERROUS SULFATE - FOR SA ONLY 330 MG/7.5 ML UDC GT SCH (08:57)
[2017-10-10] MEDS: METOCLOPRAMIDE HCL 10 MG/10 ML UDC GT SCH ×3 (08:57→17:42)
[2017-10-10] MEDS: Z GUARD REMEDY 4 OZ OINT TP SCH ×2 (08:57→20:22)
[2017-10-10 12:00] VITALS: BP 127/72
[2017-10-10 18:46] VITALS: BP 119/59
[2017-10-10] MEDS: CYANOCOBALAMIN 500 MCG TABLET GT SCH (20:19)
[2017-10-10] MEDS: SENNOSIDES 8.6 MG TABLET GT SCH (20:19)
[2017-10-10] MEDS: ASCORBIC ACID 500 MG TABLET GT SCH (20:22)
[2017-10-10] MEDS: ZINC SULFATE 220 MG CAPSULE GT SCH (20:22)
[2017-10-10] MEDS: CEFEPIME 1 GM in IV D5W 50 ML IV SCH (21:00)
--- NOTE | 2017-10-10 21:00 | NUR ---
RN NOTES Received new order from Emily to d/c Rocephin 1gm ivpb q24hr for UTI, start Cefepime 1mg ivpb q12hr. First dose started from Ekit. No a/r noted.
[2017-10-10 21:15] VITALS: BP 119/52
[2017-10-10] MEDS: DULOXETINE HCL 30 MG CAPSULE.DR GT SCH (21:37)
[2017-10-11 01:16] VITALS: BP 123/63
[2017-10-11] MEDS: ALBUTEROL HALF STRENGTH 1.25 MG/3 ML VIAL.NEB NEB SCH ×4 (01:57→20:03)
[2017-10-11] MEDS: IPRATROPIUM NEB FS 0.5 MG/2.5 ML AMPUL.NEB NEB SCH ×4 (01:57→20:03)
[2017-10-11] MEDS: LEVOTHYROXINE SODIUM 25 MCG TABLET GT SCH (05:11)
[2017-10-11] MEDS: OMEPRAZOLE 20 MG CAPSULE.DR GT SCH (05:11)
[2017-10-11 06:28] VITALS: BP 125/72
[2017-10-11 08:10] VITALS: BP 101/69
[2017-10-11] MEDS: Z GUARD REMEDY 4 OZ OINT TP SCH ×2 (09:35→21:14)
[2017-10-11] MEDS: HYDROGEN PEROXIDE 480 ML BOTTLE TP SCH ×2 (09:35→21:13)
[2017-10-11] MEDS: FERROUS SULFATE - FOR SA ONLY 330 MG/7.5 ML UDC GT SCH (09:35)
[2017-10-11] MEDS: MECLIZINE HCL 12.5 MG TABLET GT SCH ×2 (09:35→21:13)
[2017-10-11] MEDS: METOCLOPRAMIDE HCL 10 MG/10 ML UDC GT SCH ×3 (09:35→16:52)
[2017-10-11] MEDS: POLYETHYLENE GLYCOL 3350 17 GM POWD.PACK GT SCH (09:35)
[2017-10-11] MEDS: CEFEPIME 1 GM in IV D5W 50 ML IV SCH ×2 (10:00→20:52)
[2017-10-11] MEDS: FIBERSOURCE HN 1,000 ML BOTTLE GT PRN (12:22)
--- NOTE | 2017-10-11 14:28 | NUR ---
Spoke to daughter Cheli and informed her of the IDT meeting. She stated that she wants to do a telephone conference and has a question for the manufacturing director regarding resident's spike in fevers. SW to call resident's daughter during IDT meeting (12:30-1:30pm).
[2017-10-11 14:53] VITALS: BP 115/65
[2017-10-11 18:39] VITALS: BP 115/75
[2017-10-11 20:00] VITALS: BP 129/75
[2017-10-11] MEDS: ASCORBIC ACID 500 MG TABLET GT SCH (21:13)
[2017-10-11] MEDS: SENNOSIDES 8.6 MG TABLET GT SCH (21:13)
[2017-10-11] MEDS: CYANOCOBALAMIN 500 MCG TABLET GT SCH (21:13)
[2017-10-11] MEDS: ZINC SULFATE 220 MG CAPSULE GT SCH (21:13)
[2017-10-11] MEDS: DULOXETINE HCL 30 MG CAPSULE.DR GT SCH (21:14)
[2017-10-12 00:10] VITALS: BP 125/83
[2017-10-12] MEDS: IPRATROPIUM NEB FS 0.5 MG/2.5 ML AMPUL.NEB NEB SCH ×4 (01:30→19:13)
[2017-10-12] MEDS: ALBUTEROL HALF STRENGTH 1.25 MG/3 ML VIAL.NEB NEB SCH ×4 (01:30→19:13)
[2017-10-12] MEDS: FIBERSOURCE HN 1,000 ML BOTTLE GT PRN (05:22)
[2017-10-12] MEDS: OMEPRAZOLE 20 MG CAPSULE.DR GT SCH (05:22)
[2017-10-12] MEDS: LEVOTHYROXINE SODIUM 25 MCG TABLET GT SCH (05:22)
[2017-10-12 06:12] VITALS: BP 106/71
[2017-10-12 07:46] VITALS: BP 107/36
[2017-10-12] MEDS: METOCLOPRAMIDE HCL 10 MG/10 ML UDC GT SCH ×3 (09:00→17:00)
[2017-10-12] MEDS: POLYETHYLENE GLYCOL 3350 17 GM POWD.PACK GT SCH (09:00)
[2017-10-12] MEDS: Z GUARD REMEDY 4 OZ OINT TP SCH ×2 (09:00→21:28)
[2017-10-12] MEDS: MECLIZINE HCL 12.5 MG TABLET GT SCH ×2 (09:00→21:28)
[2017-10-12] MEDS: HYDROGEN PEROXIDE 480 ML BOTTLE TP SCH ×2 (09:00→21:28)
[2017-10-12] MEDS: FERROUS SULFATE - FOR SA ONLY 330 MG/7.5 ML UDC GT SCH (09:00)
[2017-10-12] MEDS: CEFEPIME 1 GM in IV D5W 50 ML IV SCH ×2 (09:14→20:57)
[2017-10-12 12:00] VITALS: BP 132/69
[2017-10-12] MEDS: ACETAMINOPHEN 650 MG/20 ML UDC- FOR SA PATIENTS ONLY GT PRN (13:09)
[2017-10-12 18:00] VITALS: BP 99/88
[2017-10-12] MEDS: TRAMADOL HCL 50 MG TABLET GT PRN ×2 (18:08→19:30)
[2017-10-12 20:25] VITALS: BP 127/67
[2017-10-12] MEDS: CYANOCOBALAMIN 500 MCG TABLET GT SCH (21:28)
[2017-10-12] MEDS: ZINC SULFATE 220 MG CAPSULE GT SCH (21:28)
[2017-10-12] MEDS: SENNOSIDES 8.6 MG TABLET GT SCH (21:28)
[2017-10-12] MEDS: DULOXETINE HCL 30 MG CAPSULE.DR GT SCH (21:28)
[2017-10-12] MEDS: ASCORBIC ACID 500 MG TABLET GT SCH (21:28)
[2017-10-13 00:15] VITALS: BP 105/64
[2017-10-13] MEDS: ALBUTEROL HALF STRENGTH 1.25 MG/3 ML VIAL.NEB NEB SCH ×4 (01:19→19:20)
[2017-10-13] MEDS: IPRATROPIUM NEB FS 0.5 MG/2.5 ML AMPUL.NEB NEB SCH ×4 (01:19→19:20)
[2017-10-13] MEDS: FIBERSOURCE HN 1,000 ML BOTTLE GT PRN ×2 (03:23→18:03)
[2017-10-13] MEDS: LEVOTHYROXINE SODIUM 25 MCG TABLET GT SCH (05:08)
[2017-10-13] MEDS: OMEPRAZOLE 20 MG CAPSULE.DR GT SCH (05:08)
[2017-10-13 06:06] VITALS: BP 137/69
[2017-10-13 07:32] VITALS: BP 144/75
[2017-10-13] MEDS: CEFEPIME 1 GM in IV D5W 50 ML IV SCH ×2 (09:00→20:58)
[2017-10-13] MEDS: Z GUARD REMEDY 4 OZ OINT TP SCH ×2 (09:29→21:12)
[2017-10-13] MEDS: METOCLOPRAMIDE HCL 10 MG/10 ML UDC GT SCH ×3 (09:29→17:00)
[2017-10-13] MEDS: MECLIZINE HCL 12.5 MG TABLET GT SCH ×2 (09:29→21:12)
[2017-10-13] MEDS: FERROUS SULFATE - FOR SA ONLY 330 MG/7.5 ML UDC GT SCH (09:29)
[2017-10-13] MEDS: HYDROGEN PEROXIDE 480 ML BOTTLE TP SCH ×2 (09:29→21:12)
[2017-10-13] MEDS: POLYETHYLENE GLYCOL 3350 17 GM POWD.PACK GT SCH (09:29)
[2017-10-13 12:46] VITALS: BP 141/85
--- NOTE | 2017-10-13 15:01 | NUR ---
INTERDISCIPLINARY PLAN OF CARE CONFERENCE was held today. Resident's daughter Cheli was able to attend via telephone conference. New orders were reviewed. Dr. John and the interdisciplinary team reviewed the current plan of care in detail. Daughter expressed concern over low grade fevers and this was addressed by Dr. John during the IDT meeting. Resident is currently on antibiotics and charge nurse will follow up for stop date. Per the resident's dtr, she expressed concern about the resident's declining mental status. Per Dr. John, this is multi-factorial and states that lowgrade fevers, her medical condition/presence in subacute for several years, etc plays a role. Resident does not have any significant weight loss or gains. New order to do a CBC on Monday10/16/2017.
[2017-10-13 18:00] VITALS: BP 136/65
[2017-10-13 19:50] VITALS: BP 107/58
[2017-10-13] MEDS: ZINC SULFATE 220 MG CAPSULE GT SCH (21:12)
[2017-10-13] MEDS: DULOXETINE HCL 30 MG CAPSULE.DR GT SCH (21:12)
[2017-10-13] MEDS: ASCORBIC ACID 500 MG TABLET GT SCH (21:12)
[2017-10-13] MEDS: SENNOSIDES 8.6 MG TABLET GT SCH (21:12)
[2017-10-13] MEDS: CYANOCOBALAMIN 500 MCG TABLET GT SCH (21:12)
[2017-10-14 00:15] VITALS: BP 130/72
[2017-10-14] MEDS: IPRATROPIUM NEB FS 0.5 MG/2.5 ML AMPUL.NEB NEB SCH ×4 (01:19→19:38)
[2017-10-14] MEDS: ALBUTEROL HALF STRENGTH 1.25 MG/3 ML VIAL.NEB NEB SCH ×4 (01:19→19:38)
[2017-10-14] MEDS: OMEPRAZOLE 20 MG CAPSULE.DR GT SCH (05:29)
[2017-10-14] MEDS: LEVOTHYROXINE SODIUM 25 MCG TABLET GT SCH (05:29)
[2017-10-14 06:08] VITALS: BP 111/88
[2017-10-14 06:28] LABS: BASOPHILS % (AUTO) 0.3 % (0.0-2.0); EOSINOPHILS # (AUTO) 0.3 /CMM (0.0-0.7); HEMATOCRIT 31 % (33-45); HEMOGLOBIN 10.5 g/dL (11.5-14.8); LYMPHOCYTES # (AUTO) 1.5 /CMM (0.8-4.8); LYMPHOCYTES % (AUTO) 15.4 % (20.0-44.0); MEAN CORPUSCULAR HEMOGLOBIN 30 PG (26.0-33.0); MEAN CORPUSCULAR HGB CONC 34 g/dl (31.0-36.0); MEAN CORPUSCULAR VOLUME 91 fL (82-100); MONOCYTES # (AUTO) 0.8 /CMM (0.1-1.30); NEUTROPHILS # (AUTO) 7.1 /CMM (1.8-8.9); NEUTROPHILS % (AUTO) 73.3 % (43.0-81.0); PLATELET COUNT (AUTO) 306 /CMM (150-450); RDW COEFFICIENT OF VARIATION 16.2 (11.5-15.0); RED BLOOD CELL COUNT(AUTO) 3.46 MIL/uL (4.0-5.2); WHITE BLOOD COUNT (AUTO) 9.7 K/uL (4.3-11.0)
[2017-10-14 07:46] VITALS: BP 111/67
[2017-10-14] MEDS: CEFEPIME 1 GM in IV D5W 50 ML IV SCH ×2 (09:00→21:00)
[2017-10-14] MEDS: POLYETHYLENE GLYCOL 3350 17 GM POWD.PACK GT SCH (09:51)
[2017-10-14] MEDS: FERROUS SULFATE - FOR SA ONLY 330 MG/7.5 ML UDC GT SCH (09:51)
[2017-10-14] MEDS: METOCLOPRAMIDE HCL 10 MG/10 ML UDC GT SCH ×3 (09:51→17:00)
[2017-10-14] MEDS: MECLIZINE HCL 12.5 MG TABLET GT SCH ×2 (09:51→20:59)
[2017-10-14] MEDS: Z GUARD REMEDY 4 OZ OINT TP SCH ×3 (09:52→21:00)
[2017-10-14] MEDS: HYDROGEN PEROXIDE 480 ML BOTTLE TP SCH ×2 (09:52→21:00)
--- NOTE | 2017-10-14 10:08 | NUR ---
Reported to Dr. Foreman the rashes in the groin area with new order to use Nystatin powder, asked MD to assess redness with small blisters in the L hip, stated he will take a look at it tomorrow. Keep area clean and keep patient clean and dry after each period of incontinency. Cheli daughter notified of skin condition.
[2017-10-14 12:00] VITALS: BP 128/73
[2017-10-14] MEDS: TRAMADOL HCL 50 MG TABLET GT PRN (13:16)
--- NOTE | 2017-10-14 15:00 | NUR ---
Resident's daughter Cheli visiting and showed her the picture of patient's groin and the rashes in the L hip. Made aware of treatment order. Family has no other concern.
[2017-10-14] MEDS: FIBERSOURCE HN 1,000 ML BOTTLE GT PRN (18:24)
[2017-10-14 18:56] VITALS: BP 126/67
[2017-10-14] MEDS: CYANOCOBALAMIN 500 MCG TABLET GT SCH (20:59)
[2017-10-14] MEDS: SENNOSIDES 8.6 MG TABLET GT SCH (20:59)
[2017-10-14] MEDS: ZINC SULFATE 220 MG CAPSULE GT SCH (20:59)
[2017-10-14] MEDS: ASCORBIC ACID 500 MG TABLET GT SCH (20:59)
[2017-10-14] MEDS: NYSTATIN TOP POWDER 15 GM BOTTLE TP SCH (21:00)
[2017-10-14] MEDS: DULOXETINE HCL 30 MG CAPSULE.DR GT SCH (21:00)
[2017-10-14 22:57] VITALS: BP 147/62
[2017-10-15] VITALS: BP 130/62
[2017-10-15] MEDS: TRAMADOL HCL 50 MG TABLET GT PRN (00:38)
[2017-10-15] MEDS: IPRATROPIUM NEB FS 0.5 MG/2.5 ML AMPUL.NEB NEB SCH ×4 (01:39→20:19)
[2017-10-15] MEDS: ALBUTEROL HALF STRENGTH 1.25 MG/3 ML VIAL.NEB NEB SCH ×4 (01:40→20:19)
[2017-10-15 06:00] VITALS: BP 113/80
[2017-10-15] MEDS: LEVOTHYROXINE SODIUM 25 MCG TABLET GT SCH (06:31)
[2017-10-15] MEDS: OMEPRAZOLE 20 MG CAPSULE.DR GT SCH (06:31)
[2017-10-15 07:18] VITALS: BP 116/57
[2017-10-15] MEDS: CEFEPIME 1 GM in IV D5W 50 ML IV SCH ×2 (09:07→21:16)
[2017-10-15] MEDS: MECLIZINE HCL 12.5 MG TABLET GT SCH ×2 (09:45→20:26)
[2017-10-15] MEDS: FERROUS SULFATE - FOR SA ONLY 330 MG/7.5 ML UDC GT SCH (09:46)
[2017-10-15] MEDS: POLYETHYLENE GLYCOL 3350 17 GM POWD.PACK GT SCH (09:46)
[2017-10-15] MEDS: HYDROGEN PEROXIDE 480 ML BOTTLE TP SCH ×2 (09:46→20:28)
[2017-10-15] MEDS: Z GUARD REMEDY 4 OZ OINT TP SCH ×4 (09:46→20:28)
[2017-10-15] MEDS: METOCLOPRAMIDE HCL 10 MG/10 ML UDC GT SCH ×3 (09:46→16:44)
[2017-10-15] MEDS: NYSTATIN TOP POWDER 15 GM BOTTLE TP SCH ×2 (09:46→20:28)
[2017-10-15 16:27] VITALS: BP 116/57
[2017-10-15] MEDS: FIBERSOURCE HN 1,000 ML BOTTLE GT PRN (16:42)
--- NOTE | 2017-10-15 17:00 | NUR ---
Resident's rash in the L hip still noted, no change in size, no other similar rash with blister present. Dr. Foreman did not came in today. Endorsed to follow-up in AM
[2017-10-15 18:49] VITALS: BP 119/70
[2017-10-15 20:00] VITALS: BP 101/58
[2017-10-15] MEDS: CYANOCOBALAMIN 500 MCG TABLET GT SCH (20:27)
[2017-10-15] MEDS: SENNOSIDES 8.6 MG TABLET GT SCH (20:27)
[2017-10-15] MEDS: ZINC SULFATE 220 MG CAPSULE GT SCH (20:28)
[2017-10-15] MEDS: ASCORBIC ACID 500 MG TABLET GT SCH (20:28)
[2017-10-15] MEDS: DULOXETINE HCL 30 MG CAPSULE.DR GT SCH (22:00)
[2017-10-16 00:19] VITALS: BP 111/67
[2017-10-16] MEDS: ALBUTEROL HALF STRENGTH 1.25 MG/3 ML VIAL.NEB NEB SCH ×4 (01:10→19:55)
[2017-10-16] MEDS: IPRATROPIUM NEB FS 0.5 MG/2.5 ML AMPUL.NEB NEB SCH ×4 (01:10→19:55)
[2017-10-16] MEDS: OMEPRAZOLE 20 MG CAPSULE.DR GT SCH (05:18)
[2017-10-16] MEDS: LEVOTHYROXINE SODIUM 25 MCG TABLET GT SCH (05:18)
[2017-10-16 06:20] VITALS: BP 115/61
[2017-10-16 08:17] VITALS: BP 156/58
[2017-10-16] MEDS: CEFEPIME 1 GM in IV D5W 50 ML IV SCH ×2 (09:00→21:10)
[2017-10-16] MEDS: MECLIZINE HCL 12.5 MG TABLET GT SCH ×2 (09:15→20:20)
[2017-10-16] MEDS: METOCLOPRAMIDE HCL 10 MG/10 ML UDC GT SCH ×3 (09:16→17:25)
[2017-10-16] MEDS: HYDROGEN PEROXIDE 480 ML BOTTLE TP SCH ×2 (09:16→20:21)
[2017-10-16] MEDS: NYSTATIN TOP POWDER 15 GM BOTTLE TP SCH ×2 (09:16→20:21)
[2017-10-16] MEDS: POLYETHYLENE GLYCOL 3350 17 GM POWD.PACK GT SCH (09:16)
[2017-10-16] MEDS: FERROUS SULFATE - FOR SA ONLY 330 MG/7.5 ML UDC GT SCH (09:16)
[2017-10-16] MEDS: Z GUARD REMEDY 4 OZ OINT TP SCH ×4 (09:17→20:25)
--- NOTE | 2017-10-16 11:00 | NUR ---
Pt's peripheral IV site on left forearm noted with redness. Removed IV line and started a new peripheral line on the left hand, with good blood return.
[2017-10-16] MEDS: FIBERSOURCE HN 1,000 ML BOTTLE GT PRN (12:02)
[2017-10-16 12:46] VITALS: BP 156/58
[2017-10-16 18:20] VITALS: BP 135/90
[2017-10-16 20:00] VITALS: BP 120/68
[2017-10-16] MEDS: CYANOCOBALAMIN 500 MCG TABLET GT SCH (20:19)
[2017-10-16] MEDS: SENNOSIDES 8.6 MG TABLET GT SCH (20:20)
[2017-10-16] MEDS: ZINC SULFATE 220 MG CAPSULE GT SCH (20:21)
[2017-10-16] MEDS: ASCORBIC ACID 500 MG TABLET GT SCH (20:21)
[2017-10-16] MEDS: DULOXETINE HCL 30 MG CAPSULE.DR GT SCH (21:43)
[2017-10-17] MEDS: ALBUTEROL HALF STRENGTH 1.25 MG/3 ML VIAL.NEB NEB SCH ×4 (02:23→19:54)
[2017-10-17] MEDS: IPRATROPIUM NEB FS 0.5 MG/2.5 ML AMPUL.NEB NEB SCH ×4 (02:23→19:54)
[2017-10-17 03:35] VITALS: BP 122/78
[2017-10-17] MEDS: OMEPRAZOLE 20 MG CAPSULE.DR GT SCH (05:17)
[2017-10-17] MEDS: LEVOTHYROXINE SODIUM 25 MCG TABLET GT SCH (05:17)
[2017-10-17 06:20] VITALS: BP 127/74
[2017-10-17 07:48] VITALS: BP 154/76
[2017-10-17] MEDS: CEFEPIME 1 GM in IV D5W 50 ML IV SCH (08:59)
[2017-10-17] MEDS: FERROUS SULFATE - FOR SA ONLY 330 MG/7.5 ML UDC GT SCH (09:46)
[2017-10-17] MEDS: MECLIZINE HCL 12.5 MG TABLET GT SCH ×2 (09:49→20:55)
[2017-10-17] MEDS: METOCLOPRAMIDE HCL 10 MG/10 ML UDC GT SCH ×3 (09:50→17:42)
[2017-10-17] MEDS: POLYETHYLENE GLYCOL 3350 17 GM POWD.PACK GT SCH (09:50)
[2017-10-17] MEDS: HYDROGEN PEROXIDE 480 ML BOTTLE TP SCH ×2 (09:51→20:58)
[2017-10-17] MEDS: NYSTATIN TOP POWDER 15 GM BOTTLE TP SCH ×2 (09:51→20:58)
[2017-10-17] MEDS: Z GUARD REMEDY 4 OZ OINT TP SCH ×4 (09:51→20:59)
[2017-10-17 14:33] VITALS: BP 154/76
[2017-10-17 18:18] VITALS: BP 111/62
[2017-10-17 19:39] VITALS: BP 100/60
[2017-10-17] MEDS: SENNOSIDES 8.6 MG TABLET GT SCH (20:56)
[2017-10-17] MEDS: CYANOCOBALAMIN 500 MCG TABLET GT SCH (20:57)
[2017-10-17] MEDS: ASCORBIC ACID 500 MG TABLET GT SCH (20:57)
[2017-10-17] MEDS: ZINC SULFATE 220 MG CAPSULE GT SCH (20:58)
[2017-10-17] MEDS: DULOXETINE HCL 30 MG CAPSULE.DR GT SCH (22:59)
[2017-10-17] MEDS: FIBERSOURCE HN 1,000 ML BOTTLE GT PRN (23:11)
[2017-10-18] VITALS: BP 100/60
[2017-10-18] MEDS: ALBUTEROL HALF STRENGTH 1.25 MG/3 ML VIAL.NEB NEB SCH ×4 (01:30→19:39)
[2017-10-18] MEDS: IPRATROPIUM NEB FS 0.5 MG/2.5 ML AMPUL.NEB NEB SCH ×4 (01:30→19:39)
[2017-10-18 06:00] VITALS: BP 112/72
[2017-10-18] MEDS: OMEPRAZOLE 20 MG CAPSULE.DR GT SCH (06:14)
[2017-10-18] MEDS: LEVOTHYROXINE SODIUM 25 MCG TABLET GT SCH (06:14)
[2017-10-18 08:04] VITALS: BP 138/48
[2017-10-18] MEDS: MECLIZINE HCL 12.5 MG TABLET GT SCH ×2 (09:00→20:16)
[2017-10-18] MEDS: POLYETHYLENE GLYCOL 3350 17 GM POWD.PACK GT SCH (09:00)
[2017-10-18] MEDS: FERROUS SULFATE - FOR SA ONLY 330 MG/7.5 ML UDC GT SCH (09:00)
[2017-10-18] MEDS: NYSTATIN TOP POWDER 15 GM BOTTLE TP SCH ×2 (09:00→20:17)
[2017-10-18] MEDS: Z GUARD REMEDY 4 OZ OINT TP SCH ×4 (09:00→20:17)
[2017-10-18] MEDS: HYDROGEN PEROXIDE 480 ML BOTTLE TP SCH ×2 (09:00→20:17)
[2017-10-18] MEDS: METOCLOPRAMIDE HCL 10 MG/10 ML UDC GT SCH ×3 (09:00→17:00)
[2017-10-18 12:00] VITALS: BP 118/58
[2017-10-18 18:52] VITALS: BP 116/49
[2017-10-18 19:55] VITALS: BP 114/72
[2017-10-18] MEDS: CYANOCOBALAMIN 500 MCG TABLET GT SCH (20:15)
[2017-10-18] MEDS: SENNOSIDES 8.6 MG TABLET GT SCH (20:16)
[2017-10-18] MEDS: ASCORBIC ACID 500 MG TABLET GT SCH (20:17)
[2017-10-18] MEDS: ZINC SULFATE 220 MG CAPSULE GT SCH (20:17)
[2017-10-18] MEDS: DULOXETINE HCL 30 MG CAPSULE.DR GT SCH (21:35)
[2017-10-19 00:07] VITALS: BP 121/64
[2017-10-19] MEDS: IPRATROPIUM NEB FS 0.5 MG/2.5 ML AMPUL.NEB NEB SCH ×4 (00:55→20:04)
[2017-10-19] MEDS: ALBUTEROL HALF STRENGTH 1.25 MG/3 ML VIAL.NEB NEB SCH ×4 (00:56→20:04)
[2017-10-19] MEDS: FIBERSOURCE HN 1,000 ML BOTTLE GT PRN ×2 (01:24→21:46)
[2017-10-19] MEDS: LEVOTHYROXINE SODIUM 25 MCG TABLET GT SCH (05:09)
[2017-10-19] MEDS: OMEPRAZOLE 20 MG CAPSULE.DR GT SCH (05:09)
[2017-10-19 06:29] VITALS: BP 130/71
[2017-10-19 07:46] VITALS: BP 144/71
[2017-10-19] MEDS: MECLIZINE HCL 12.5 MG TABLET GT SCH ×2 (08:23→21:46)
[2017-10-19] MEDS: FERROUS SULFATE - FOR SA ONLY 330 MG/7.5 ML UDC GT SCH (08:23)
[2017-10-19] MEDS: HYDROGEN PEROXIDE 480 ML BOTTLE TP SCH ×2 (08:23→21:46)
[2017-10-19] MEDS: NYSTATIN TOP POWDER 15 GM BOTTLE TP SCH ×2 (08:23→21:46)
[2017-10-19] MEDS: Z GUARD REMEDY 4 OZ OINT TP SCH ×4 (08:23→21:46)
[2017-10-19] MEDS: METOCLOPRAMIDE HCL 10 MG/10 ML UDC GT SCH ×3 (08:23→16:46)
[2017-10-19] MEDS: POLYETHYLENE GLYCOL 3350 17 GM POWD.PACK GT SCH (08:23)
[2017-10-19 18:00] VITALS: BP 115/72
--- NOTE | 2017-10-19 20:00 | NUR ---
NOTIFIED AJ ROTHMAN REGARDING GRANULOMA AROUND TRACHEOSTOMY SITE ENDORSED BY DAY SHIFT,THEY DID NOT DO ROUTINE TRACH CHANGE TODAY D/T THE HARSHAD ORDER FOR ENT CONSULT WILL ENDORSED TO AM SHIFT TO CALL MD IN THE MORNING. Addendum: 10/26/17 at 0622 by ML LEW RN wrong entry
[2017-10-19 20:32] VITALS: BP 128/70
[2017-10-19] MEDS: SENNOSIDES 8.6 MG TABLET GT SCH (21:46)
[2017-10-19] MEDS: ZINC SULFATE 220 MG CAPSULE GT SCH (21:46)
[2017-10-19] MEDS: DULOXETINE HCL 30 MG CAPSULE.DR GT SCH (21:46)
[2017-10-19] MEDS: ASCORBIC ACID 500 MG TABLET GT SCH (21:46)
[2017-10-19] MEDS: CYANOCOBALAMIN 500 MCG TABLET GT SCH (21:46)
[2017-10-20] VITALS: BP 118/60
[2017-10-20] MEDS: ALBUTEROL HALF STRENGTH 1.25 MG/3 ML VIAL.NEB NEB SCH ×4 (01:30→19:37)
[2017-10-20] MEDS: IPRATROPIUM NEB FS 0.5 MG/2.5 ML AMPUL.NEB NEB SCH ×4 (01:30→19:37)
[2017-10-20 06:00] VITALS: BP 126/64
[2017-10-20] MEDS: LEVOTHYROXINE SODIUM 25 MCG TABLET GT SCH (06:02)
[2017-10-20] MEDS: OMEPRAZOLE 20 MG CAPSULE.DR GT SCH (06:02)
[2017-10-20 07:38] VITALS: BP 139/79
[2017-10-20] MEDS: HYDROGEN PEROXIDE 480 ML BOTTLE TP SCH ×2 (09:00→21:40)
[2017-10-20] MEDS: Z GUARD REMEDY 4 OZ OINT TP SCH ×4 (09:00→21:40)
[2017-10-20] MEDS: MECLIZINE HCL 12.5 MG TABLET GT SCH ×2 (09:25→20:37)
[2017-10-20] MEDS: FERROUS SULFATE - FOR SA ONLY 330 MG/7.5 ML UDC GT SCH (09:26)
[2017-10-20] MEDS: POLYETHYLENE GLYCOL 3350 17 GM POWD.PACK GT SCH (09:28)
[2017-10-20] MEDS: METOCLOPRAMIDE HCL 10 MG/10 ML UDC GT SCH ×3 (09:31→17:00)
[2017-10-20] MEDS: NYSTATIN TOP POWDER 15 GM BOTTLE TP SCH ×2 (09:33→21:40)
[2017-10-20 12:00] VITALS: BP 134/58
[2017-10-20 18:00] VITALS: BP 110/70
[2017-10-20 19:49] VITALS: BP 133/76
[2017-10-20] MEDS: FIBERSOURCE HN 1,000 ML BOTTLE GT PRN (20:00)
[2017-10-20] MEDS: SENNOSIDES 8.6 MG TABLET GT SCH (20:37)
[2017-10-20] MEDS: ASCORBIC ACID 500 MG TABLET GT SCH (20:37)
[2017-10-20] MEDS: CYANOCOBALAMIN 500 MCG TABLET GT SCH (20:37)
[2017-10-20] MEDS: ZINC SULFATE 220 MG CAPSULE GT SCH (20:37)
[2017-10-20] MEDS: DULOXETINE HCL 30 MG CAPSULE.DR GT SCH (21:40)
[2017-10-21 00:20] VITALS: BP 134/51
[2017-10-21] MEDS: ALBUTEROL HALF STRENGTH 1.25 MG/3 ML VIAL.NEB NEB SCH ×4 (01:35→19:19)
[2017-10-21] MEDS: IPRATROPIUM NEB FS 0.5 MG/2.5 ML AMPUL.NEB NEB SCH ×4 (01:35→19:19)
[2017-10-21] MEDS: LEVOTHYROXINE SODIUM 25 MCG TABLET GT SCH (05:31)
[2017-10-21] MEDS: OMEPRAZOLE 20 MG CAPSULE.DR GT SCH (05:31)
[2017-10-21 07:06] VITALS: BP 125/88
[2017-10-21 07:37] VITALS: BP 127/89
[2017-10-21] MEDS: METOCLOPRAMIDE HCL 10 MG/10 ML UDC GT SCH ×3 (08:53→16:24)
[2017-10-21] MEDS: MECLIZINE HCL 12.5 MG TABLET GT SCH ×2 (08:53→20:34)
[2017-10-21] MEDS: POLYETHYLENE GLYCOL 3350 17 GM POWD.PACK GT SCH (08:53)
[2017-10-21] MEDS: FERROUS SULFATE - FOR SA ONLY 330 MG/7.5 ML UDC GT SCH (08:53)
[2017-10-21] MEDS: HYDROGEN PEROXIDE 480 ML BOTTLE TP SCH ×2 (09:00→21:39)
[2017-10-21] MEDS: Z GUARD REMEDY 4 OZ OINT TP SCH ×4 (09:00→21:39)
[2017-10-21] MEDS: NYSTATIN TOP POWDER 15 GM BOTTLE TP SCH ×2 (09:00→21:39)
[2017-10-21 11:04] VITALS: BP 126/96
[2017-10-21] MEDS: ACETAMINOPHEN 650 MG/20 ML UDC- FOR SA PATIENTS ONLY GT PRN (11:17)
[2017-10-21] MEDS: FIBERSOURCE HN 1,000 ML BOTTLE GT PRN (16:24)
[2017-10-21 18:13] VITALS: BP 135/75
[2017-10-21 20:05] VITALS: BP 133/74
[2017-10-21] MEDS: SENNOSIDES 8.6 MG TABLET GT SCH (20:34)
[2017-10-21] MEDS: ZINC SULFATE 220 MG CAPSULE GT SCH (20:34)
[2017-10-21] MEDS: CYANOCOBALAMIN 500 MCG TABLET GT SCH (20:34)
[2017-10-21] MEDS: ASCORBIC ACID 500 MG TABLET GT SCH (20:34)
[2017-10-21] MEDS: DULOXETINE HCL 30 MG CAPSULE.DR GT SCH (21:39)
[2017-10-22 01:33] VITALS: BP 134/78
[2017-10-22] MEDS: ALBUTEROL HALF STRENGTH 1.25 MG/3 ML VIAL.NEB NEB SCH ×4 (01:55→19:35)
[2017-10-22] MEDS: IPRATROPIUM NEB FS 0.5 MG/2.5 ML AMPUL.NEB NEB SCH ×4 (01:55→19:35)
[2017-10-22] MEDS: LEVOTHYROXINE SODIUM 25 MCG TABLET GT SCH (05:33)
[2017-10-22] MEDS: OMEPRAZOLE 20 MG CAPSULE.DR GT SCH (05:33)
[2017-10-22 06:15] VITALS: BP 114/58
[2017-10-22 07:35] VITALS: BP 100/56
[2017-10-22] MEDS: METOCLOPRAMIDE HCL 10 MG/10 ML UDC GT SCH ×3 (09:54→17:00)
[2017-10-22] MEDS: MECLIZINE HCL 12.5 MG TABLET GT SCH ×2 (09:54→21:35)
[2017-10-22] MEDS: FERROUS SULFATE - FOR SA ONLY 330 MG/7.5 ML UDC GT SCH (09:54)
[2017-10-22] MEDS: POLYETHYLENE GLYCOL 3350 17 GM POWD.PACK GT SCH (09:54)
[2017-10-22] MEDS: HYDROGEN PEROXIDE 480 ML BOTTLE TP SCH ×2 (09:55→21:42)
[2017-10-22] MEDS: NYSTATIN TOP POWDER 15 GM BOTTLE TP SCH ×2 (09:55→21:42)
[2017-10-22] MEDS: Z GUARD REMEDY 4 OZ OINT TP SCH ×4 (09:55→21:43)
[2017-10-22] MEDS: FIBERSOURCE HN 1,000 ML BOTTLE GT PRN (12:33)
[2017-10-22 17:05] VITALS: BP 100/56
[2017-10-22 18:54] VITALS: BP 130/80
[2017-10-22] MEDS: CYANOCOBALAMIN 500 MCG TABLET GT SCH (21:42)
[2017-10-22] MEDS: ASCORBIC ACID 500 MG TABLET GT SCH (21:42)
[2017-10-22] MEDS: SENNOSIDES 8.6 MG TABLET GT SCH (21:42)
[2017-10-22] MEDS: DULOXETINE HCL 30 MG CAPSULE.DR GT SCH (21:43)
[2017-10-22 22:02] VITALS: BP 107/60
[2017-10-23] MEDS: ALBUTEROL HALF STRENGTH 1.25 MG/3 ML VIAL.NEB NEB SCH ×4 (01:22→19:24)
[2017-10-23] MEDS: IPRATROPIUM NEB FS 0.5 MG/2.5 ML AMPUL.NEB NEB SCH ×4 (01:22→19:24)
[2017-10-23 03:09] VITALS: BP 122/60
[2017-10-23] MEDS: OMEPRAZOLE 20 MG CAPSULE.DR GT SCH (05:48)
[2017-10-23] MEDS: LEVOTHYROXINE SODIUM 25 MCG TABLET GT SCH (05:49)
[2017-10-23 06:11] VITALS: BP 122/62
[2017-10-23 07:44] VITALS: BP 125/67
[2017-10-23] MEDS: POLYETHYLENE GLYCOL 3350 17 GM POWD.PACK GT SCH (09:00)
[2017-10-23] MEDS: HYDROGEN PEROXIDE 480 ML BOTTLE TP SCH ×2 (09:00→21:16)
[2017-10-23] MEDS: METOCLOPRAMIDE HCL 10 MG/10 ML UDC GT SCH ×3 (09:00→16:14)
[2017-10-23] MEDS: NYSTATIN TOP POWDER 15 GM BOTTLE TP SCH ×2 (09:00→21:16)
[2017-10-23] MEDS: Z GUARD REMEDY 4 OZ OINT TP SCH ×4 (09:00→21:16)
[2017-10-23] MEDS: MECLIZINE HCL 12.5 MG TABLET GT SCH ×2 (09:00→21:16)
[2017-10-23] MEDS: FERROUS SULFATE - FOR SA ONLY 330 MG/7.5 ML UDC GT SCH (09:00)
[2017-10-23 15:28] VITALS: BP 125/67
[2017-10-23 19:10] VITALS: BP 119/68
[2017-10-23] MEDS: SENNOSIDES 8.6 MG TABLET GT SCH (21:16)
[2017-10-23] MEDS: ASCORBIC ACID 500 MG TABLET GT SCH (21:16)
[2017-10-23] MEDS: CYANOCOBALAMIN 500 MCG TABLET GT SCH (21:16)
[2017-10-23] MEDS: DULOXETINE HCL 30 MG CAPSULE.DR GT SCH (21:16)
[2017-10-23 21:55] VITALS: BP 109/69
[2017-10-24 00:15] VITALS: BP 114/62
[2017-10-24] MEDS: ALBUTEROL HALF STRENGTH 1.25 MG/3 ML VIAL.NEB NEB SCH ×4 (02:17→19:18)
[2017-10-24] MEDS: IPRATROPIUM NEB FS 0.5 MG/2.5 ML AMPUL.NEB NEB SCH ×4 (02:17→19:18)
[2017-10-24] MEDS: LEVOTHYROXINE SODIUM 25 MCG TABLET GT SCH (06:04)
[2017-10-24] MEDS: OMEPRAZOLE 20 MG CAPSULE.DR GT SCH (06:04)
[2017-10-24 06:10] VITALS: BP 119/64
--- NOTE | 2017-10-24 07:15 | NUR ---
RN OPENING NOTE RECVD REPORT FROM NOC RN. OBTUNDED. NONVERBAL. HOB ELEVATED. PEG FEEDING. TRACH VENT 95% O2 SATS. BED IN LOW LOCKED POSITION. SIDE RAILS UP X 2. WILL CONT TO MONITOR AND TURN Q2 HRS.
[2017-10-24 07:40] VITALS: BP 108/78
[2017-10-24 08:00] VITALS: BP 108/78
[2017-10-24] MEDS: MECLIZINE HCL 12.5 MG TABLET GT SCH ×2 (08:26→21:29)
[2017-10-24] MEDS: METOCLOPRAMIDE HCL 10 MG/10 ML UDC GT SCH ×3 (08:26→16:52)
[2017-10-24] MEDS: HYDROGEN PEROXIDE 480 ML BOTTLE TP SCH ×2 (08:26→21:30)
[2017-10-24] MEDS: NYSTATIN TOP POWDER 15 GM BOTTLE TP SCH ×2 (08:26→21:30)
[2017-10-24] MEDS: POLYETHYLENE GLYCOL 3350 17 GM POWD.PACK GT SCH (08:28)
[2017-10-24] MEDS: Z GUARD REMEDY 4 OZ OINT TP SCH ×4 (08:28→21:30)
[2017-10-24] MEDS: FERROUS SULFATE - FOR SA ONLY 330 MG/7.5 ML UDC GT SCH (08:28)
--- NOTE | 2017-10-24 18:00 | NUR ---
RN CLOSING NOTES PT STABLE THROUGHOUT SHIFT. HOB ELEVATED. VENT TRACH 100% O2 SATS. BED IN LOW LOCKED POSITION. WILL ENDORSE TO NOC RN.
[2017-10-24 19:52] VITALS: BP 135/69
[2017-10-24] MEDS: SENNOSIDES 8.6 MG TABLET GT SCH (21:29)
[2017-10-24] MEDS: CYANOCOBALAMIN 500 MCG TABLET GT SCH (21:29)
[2017-10-24] MEDS: DULOXETINE HCL 30 MG CAPSULE.DR GT SCH (21:30)
[2017-10-24] MEDS: ASCORBIC ACID 500 MG TABLET GT SCH (21:30)
[2017-10-25] MEDS: ALBUTEROL HALF STRENGTH 1.25 MG/3 ML VIAL.NEB NEB SCH ×4 (02:09→19:56)
[2017-10-25] MEDS: IPRATROPIUM NEB FS 0.5 MG/2.5 ML AMPUL.NEB NEB SCH ×4 (02:09→19:56)
[2017-10-25 04:18] VITALS: BP 112/74
[2017-10-25] MEDS: LEVOTHYROXINE SODIUM 25 MCG TABLET GT SCH (06:16)
[2017-10-25] MEDS: OMEPRAZOLE 20 MG CAPSULE.DR GT SCH (06:16)
[2017-10-25 06:20] VITALS: BP 126/59
[2017-10-25 07:30] VITALS: BP 119/51
[2017-10-25] MEDS: HYDROGEN PEROXIDE 480 ML BOTTLE TP SCH ×2 (09:00→21:40)
[2017-10-25] MEDS: Z GUARD REMEDY 4 OZ OINT TP SCH ×4 (09:00→21:41)
[2017-10-25] MEDS: NYSTATIN TOP POWDER 15 GM BOTTLE TP SCH ×2 (09:00→21:40)
[2017-10-25] MEDS: POLYETHYLENE GLYCOL 3350 17 GM POWD.PACK GT SCH (09:00)
[2017-10-25] MEDS: MECLIZINE HCL 12.5 MG TABLET GT SCH ×2 (09:00→21:40)
[2017-10-25] MEDS: FERROUS SULFATE - FOR SA ONLY 330 MG/7.5 ML UDC GT SCH (09:00)
[2017-10-25] MEDS: METOCLOPRAMIDE HCL 10 MG/10 ML UDC GT SCH ×3 (09:00→17:00)
[2017-10-25 12:00] VITALS: BP 96/60
--- NOTE | 2017-10-25 14:45 | NUR ---
RN NOtes Spoke with Dr. Cox regarding Arnelta if he wants to decrease the dose as the last dose was decreased on July to 60mg and patient is doesnt have any episode. He said lets keep the same dose for now.
[2017-10-25 18:00] VITALS: BP 128/82
[2017-10-25] MEDS: FIBERSOURCE HN 1,000 ML BOTTLE GT PRN (18:23)
[2017-10-25] MEDS: ASCORBIC ACID 500 MG TABLET GT SCH (21:40)
[2017-10-25] MEDS: SENNOSIDES 8.6 MG TABLET GT SCH (21:40)
[2017-10-25] MEDS: CYANOCOBALAMIN 500 MCG TABLET GT SCH (21:40)
[2017-10-25] MEDS: DULOXETINE HCL 30 MG CAPSULE.DR GT SCH (21:41)
[2017-10-26] VITALS (8 sets, daily range): BP systolic 104–134; BP diastolic 58–77
[2017-10-26] MEDS: IPRATROPIUM NEB FS 0.5 MG/2.5 ML AMPUL.NEB NEB SCH ×4 (01:34→18:54)
[2017-10-26] MEDS: ALBUTEROL HALF STRENGTH 1.25 MG/3 ML VIAL.NEB NEB SCH ×4 (01:34→18:54)
[2017-10-26] MEDS: ACETAMINOPHEN 650 MG/20 ML UDC- FOR SA PATIENTS ONLY GT PRN (05:30)
--- NOTE | 2017-10-26 05:30 | NUR ---
Pt noted with facial grimacing,repositioned,diaper change done.Temp checked and obtained 100.0 cooling measures provided,Tylenol given via gt as ordered for discomfort.No respiratory distress noted.Will continue to monitor and will endorsed.
[2017-10-26] MEDS: LEVOTHYROXINE SODIUM 25 MCG TABLET GT SCH (06:07)
[2017-10-26] MEDS: OMEPRAZOLE 20 MG CAPSULE.DR GT SCH (06:07)
[2017-10-26] MEDS: METOCLOPRAMIDE HCL 10 MG/10 ML UDC GT SCH ×3 (09:59→16:56)
[2017-10-26] MEDS: NYSTATIN TOP POWDER 15 GM BOTTLE TP SCH ×2 (09:59→21:54)
[2017-10-26] MEDS: HYDROGEN PEROXIDE 480 ML BOTTLE TP SCH ×2 (09:59→21:54)
[2017-10-26] MEDS: MECLIZINE HCL 12.5 MG TABLET GT SCH ×2 (09:59→21:54)
[2017-10-26] MEDS: FERROUS SULFATE - FOR SA ONLY 330 MG/7.5 ML UDC GT SCH (09:59)
[2017-10-26] MEDS: Z GUARD REMEDY 4 OZ OINT TP SCH ×4 (09:59→21:54)
[2017-10-26] MEDS: POLYETHYLENE GLYCOL 3350 17 GM POWD.PACK GT SCH (09:59)
[2017-10-26] MEDS: FIBERSOURCE HN 1,000 ML BOTTLE GT PRN (14:02)
--- NOTE | 2017-10-26 14:30 | NUR ---
Seen by AJ Hankins. Notified her that pt had a temp of 100 F. Pt completed Cefepime on 10/17/17. No new order. Addendum: 10/26/17 at 1615 by YAMILETH JESUS RN T 98.9 F
[2017-10-26] MEDS: DULOXETINE HCL 30 MG CAPSULE.DR GT SCH (21:54)
[2017-10-26] MEDS: SENNOSIDES 8.6 MG TABLET GT SCH (21:54)
[2017-10-26] MEDS: CYANOCOBALAMIN 500 MCG TABLET GT SCH (21:54)
[2017-10-26] MEDS: ASCORBIC ACID 500 MG TABLET GT SCH (21:54)
[2017-10-27] VITALS: BP 115/68
[2017-10-27] MEDS: ALBUTEROL HALF STRENGTH 1.25 MG/3 ML VIAL.NEB NEB SCH ×4 (01:33→19:45)
[2017-10-27] MEDS: IPRATROPIUM NEB FS 0.5 MG/2.5 ML AMPUL.NEB NEB SCH ×4 (01:33→19:45)
[2017-10-27 06:00] VITALS: BP 120/65
[2017-10-27] MEDS: LEVOTHYROXINE SODIUM 25 MCG TABLET GT SCH (06:21)
[2017-10-27] MEDS: OMEPRAZOLE 20 MG CAPSULE.DR GT SCH (06:21)
[2017-10-27] MEDS: NYSTATIN TOP POWDER 15 GM BOTTLE TP SCH ×2 (09:57→21:25)
[2017-10-27] MEDS: METOCLOPRAMIDE HCL 10 MG/10 ML UDC GT SCH ×3 (09:57→16:36)
[2017-10-27] MEDS: HYDROGEN PEROXIDE 480 ML BOTTLE TP SCH ×2 (09:57→21:25)
[2017-10-27] MEDS: POLYETHYLENE GLYCOL 3350 17 GM POWD.PACK GT SCH (09:57)
[2017-10-27] MEDS: FERROUS SULFATE - FOR SA ONLY 330 MG/7.5 ML UDC GT SCH (09:57)
[2017-10-27] MEDS: MECLIZINE HCL 12.5 MG TABLET GT SCH ×2 (09:57→21:24)
[2017-10-27 09:58] VITALS: BP 108/59
[2017-10-27] MEDS: Z GUARD REMEDY 4 OZ OINT TP SCH ×4 (09:58→21:25)
[2017-10-27] MEDS: FIBERSOURCE HN 1,000 ML BOTTLE GT PRN (11:14)
[2017-10-27 12:00] VITALS: BP 110/75
[2017-10-27] MEDS: ACETAMINOPHEN 650 MG/20 ML UDC- FOR SA PATIENTS ONLY GT PRN (13:31)
[2017-10-27] MEDS: MAGNESIUM HYDROXIDE 30 ML UDC GT PRN (16:36)
[2017-10-27 18:28] VITALS: BP 100/61
[2017-10-27 19:59] VITALS: BP 137/73
[2017-10-27] MEDS: ASCORBIC ACID 500 MG TABLET GT SCH (21:24)
[2017-10-27] MEDS: CYANOCOBALAMIN 500 MCG TABLET GT SCH (21:24)
[2017-10-27] MEDS: SENNOSIDES 8.6 MG TABLET GT SCH (21:24)
[2017-10-27] MEDS: DULOXETINE HCL 30 MG CAPSULE.DR GT SCH (21:25)
[2017-10-28 00:20] VITALS: BP 95/67
[2017-10-28] MEDS: IPRATROPIUM NEB FS 0.5 MG/2.5 ML AMPUL.NEB NEB SCH ×4 (02:27→19:41)
[2017-10-28] MEDS: ALBUTEROL HALF STRENGTH 1.25 MG/3 ML VIAL.NEB NEB SCH ×4 (02:27→19:41)
[2017-10-28] MEDS: ACETAMINOPHEN W/ CODEINE#3 1 EA TABLET GT PRN ×2 (04:03→17:19)
[2017-10-28] MEDS: OMEPRAZOLE 20 MG CAPSULE.DR GT SCH (05:47)
[2017-10-28] MEDS: LEVOTHYROXINE SODIUM 25 MCG TABLET GT SCH (05:47)
[2017-10-28] MEDS: FIBERSOURCE HN 1,000 ML BOTTLE GT PRN (06:01)
[2017-10-28 06:24] VITALS: BP 125/74
[2017-10-28 07:36] VITALS: BP 117/71
[2017-10-28] MEDS: HYDROGEN PEROXIDE 480 ML BOTTLE TP SCH ×2 (09:46→21:00)
[2017-10-28] MEDS: MECLIZINE HCL 12.5 MG TABLET GT SCH ×2 (09:46→21:00)
[2017-10-28] MEDS: FERROUS SULFATE - FOR SA ONLY 330 MG/7.5 ML UDC GT SCH (09:46)
[2017-10-28] MEDS: NYSTATIN TOP POWDER 15 GM BOTTLE TP SCH ×2 (09:46→21:00)
[2017-10-28] MEDS: POLYETHYLENE GLYCOL 3350 17 GM POWD.PACK GT SCH (09:46)
[2017-10-28] MEDS: Z GUARD REMEDY 4 OZ OINT TP SCH ×4 (09:46→21:00)
[2017-10-28] MEDS: METOCLOPRAMIDE HCL 10 MG/10 ML UDC GT SCH ×3 (09:46→17:19)
[2017-10-28 12:00] VITALS: BP 92/66
--- NOTE | 2017-10-28 12:50 | NUR ---
Notified Dr. John patient having low grade T 99.3-99.8 today and in the past 7 days T ranging from 98.1 to 100.2. No new order given at this time. Resident up in the gerichair after giving her a shower in the shower room.
[2017-10-28 18:23] VITALS: BP 117/74
[2017-10-28 20:22] VITALS: BP 140/97
[2017-10-28] MEDS: SENNOSIDES 8.6 MG TABLET GT SCH (21:00)
[2017-10-28] MEDS: CYANOCOBALAMIN 500 MCG TABLET GT SCH (21:00)
[2017-10-28] MEDS: ASCORBIC ACID 500 MG TABLET GT SCH (21:00)
[2017-10-28] MEDS: DULOXETINE HCL 30 MG CAPSULE.DR GT SCH (22:08)
[2017-10-29] VITALS: BP 101/67
[2017-10-29] MEDS: FIBERSOURCE HN 1,000 ML BOTTLE GT PRN (01:22)
[2017-10-29] MEDS: ALBUTEROL HALF STRENGTH 1.25 MG/3 ML VIAL.NEB NEB SCH ×4 (02:11→19:55)
[2017-10-29] MEDS: IPRATROPIUM NEB FS 0.5 MG/2.5 ML AMPUL.NEB NEB SCH ×4 (02:11→19:55)
[2017-10-29] MEDS: LEVOTHYROXINE SODIUM 25 MCG TABLET GT SCH (05:41)
[2017-10-29] MEDS: OMEPRAZOLE 20 MG CAPSULE.DR GT SCH (05:41)
[2017-10-29 06:00] VITALS: BP 99/64
[2017-10-29 08:06] VITALS: BP 100/62
[2017-10-29] MEDS: MECLIZINE HCL 12.5 MG TABLET GT SCH ×2 (09:33→21:23)
[2017-10-29] MEDS: FERROUS SULFATE - FOR SA ONLY 330 MG/7.5 ML UDC GT SCH (09:33)
[2017-10-29] MEDS: POLYETHYLENE GLYCOL 3350 17 GM POWD.PACK GT SCH (09:37)
[2017-10-29] MEDS: METOCLOPRAMIDE HCL 10 MG/10 ML UDC GT SCH ×3 (09:38→17:35)
[2017-10-29] MEDS: Z GUARD REMEDY 4 OZ OINT TP SCH ×4 (10:30→21:24)
[2017-10-29] MEDS: NYSTATIN TOP POWDER 15 GM BOTTLE TP SCH ×2 (10:30→21:24)
[2017-10-29] MEDS: HYDROGEN PEROXIDE 480 ML BOTTLE TP SCH ×2 (10:30→21:24)
[2017-10-29 14:18] VITALS: BP 98/74
[2017-10-29 18:08] VITALS: BP 99/62
[2017-10-29] MEDS: SENNOSIDES 8.6 MG TABLET GT SCH (21:24)
[2017-10-29] MEDS: CYANOCOBALAMIN 500 MCG TABLET GT SCH (21:24)
[2017-10-29] MEDS: DULOXETINE HCL 30 MG CAPSULE.DR GT SCH (21:24)
[2017-10-29] MEDS: ASCORBIC ACID 500 MG TABLET GT SCH (21:24)
[2017-10-29 22:58] VITALS: BP 121/74
[2017-10-30 00:11] VITALS: BP 114/59
[2017-10-30] MEDS: IPRATROPIUM NEB FS 0.5 MG/2.5 ML AMPUL.NEB NEB SCH ×4 (02:11→19:30)
[2017-10-30] MEDS: ALBUTEROL HALF STRENGTH 1.25 MG/3 ML VIAL.NEB NEB SCH ×4 (02:11→19:30)
[2017-10-30 06:17] VITALS: BP 119/60
[2017-10-30] MEDS: OMEPRAZOLE 20 MG CAPSULE.DR GT SCH (06:22)
[2017-10-30] MEDS: LEVOTHYROXINE SODIUM 25 MCG TABLET GT SCH (06:22)
[2017-10-30 08:26] VITALS: BP 108/64
[2017-10-30] MEDS: Z GUARD REMEDY 4 OZ OINT TP SCH ×4 (09:00→21:15)
[2017-10-30] MEDS: NYSTATIN TOP POWDER 15 GM BOTTLE TP SCH ×2 (09:00→21:14)
[2017-10-30] MEDS: HYDROGEN PEROXIDE 480 ML BOTTLE TP SCH ×2 (09:00→21:14)
[2017-10-30] MEDS: POLYETHYLENE GLYCOL 3350 17 GM POWD.PACK GT SCH (09:18)
[2017-10-30] MEDS: MECLIZINE HCL 12.5 MG TABLET GT SCH ×2 (09:18→21:14)
[2017-10-30] MEDS: FERROUS SULFATE - FOR SA ONLY 330 MG/7.5 ML UDC GT SCH (09:18)
[2017-10-30] MEDS: METOCLOPRAMIDE HCL 10 MG/10 ML UDC GT SCH ×3 (09:18→17:01)
[2017-10-30 12:00] VITALS: BP 121/63
[2017-10-30] MEDS: FIBERSOURCE HN 1,000 ML BOTTLE GT PRN (17:00)
[2017-10-30 18:00] VITALS: BP 123/76
--- NOTE | 2017-10-30 18:43 | NUR ---
Seen by AJ Hankins. Notified her about pt's low grade fevers. T 100 F today. She said to refer pt to AJ Diaz.
--- NOTE | 2017-10-30 20:10 | NUR ---
RN NOTES Received pt in awake in bed in stable condition. Pt afebrile, 98.0. Will continue to monitor.
[2017-10-30 20:20] VITALS: BP 126/73
[2017-10-30] MEDS: CYANOCOBALAMIN 500 MCG TABLET GT SCH (21:14)
[2017-10-30] MEDS: SENNOSIDES 8.6 MG TABLET GT SCH (21:14)
[2017-10-30] MEDS: ASCORBIC ACID 500 MG TABLET GT SCH (21:14)
[2017-10-30] MEDS: DULOXETINE HCL 30 MG CAPSULE.DR GT SCH (21:15)
[2017-10-31] MEDS: IPRATROPIUM NEB FS 0.5 MG/2.5 ML AMPUL.NEB NEB SCH ×4 (01:53→19:51)
[2017-10-31] MEDS: ALBUTEROL HALF STRENGTH 1.25 MG/3 ML VIAL.NEB NEB SCH ×4 (01:53→19:51)
[2017-10-31 03:28] VITALS: BP 116/69
[2017-10-31] MEDS: OMEPRAZOLE 20 MG CAPSULE.DR GT SCH (05:54)
[2017-10-31] MEDS: LEVOTHYROXINE SODIUM 25 MCG TABLET GT SCH (05:54)
[2017-10-31 06:06] VITALS: BP 122/67
[2017-10-31 07:49] VITALS: BP 120/80
[2017-10-31] MEDS: MECLIZINE HCL 12.5 MG TABLET GT SCH ×2 (09:49→21:24)
[2017-10-31] MEDS: FERROUS SULFATE - FOR SA ONLY 330 MG/7.5 ML UDC GT SCH (09:49)
[2017-10-31] MEDS: POLYETHYLENE GLYCOL 3350 17 GM POWD.PACK GT SCH (09:50)
[2017-10-31] MEDS: METOCLOPRAMIDE HCL 10 MG/10 ML UDC GT SCH ×3 (09:50→17:00)
[2017-10-31] MEDS: Z GUARD REMEDY 4 OZ OINT TP SCH ×4 (09:51→21:25)
[2017-10-31] MEDS: NYSTATIN TOP POWDER 15 GM BOTTLE TP SCH ×2 (09:51→21:25)
[2017-10-31] MEDS: HYDROGEN PEROXIDE 480 ML BOTTLE TP SCH ×2 (10:15→21:24)
--- NOTE | 2017-10-31 11:15 | NUR ---
Requested AJ Diaz to see pt for low grade fevers per AJ Hankins's order. T 98.5 F today.
[2017-10-31] MEDS: FIBERSOURCE HN 1,000 ML BOTTLE GT PRN (13:30)
[2017-10-31 16:54] VITALS: BP 118/72
--- NOTE | 2017-10-31 17:30 | NUR ---
Seen by AJ Diaz. Received order to do urine culture, CBC and CXR in AM. Notified Cheli.
[2017-10-31 19:12] VITALS: BP 145/52
[2017-10-31 20:16] LABS: APPEARANCE,URINE SL CLOUDY (CLEAR); BILIRUBIN,URINE NEGATIVE (NEGATIVE); BLOOD, URINE TRACE Ery/uL (NEGATIVE); COLOR,URINE YELLOW (YELLOW); KETONES,URINE NEGATIVE (NEGATIVE); LEUKOCYTE ESTERASE ,URINE TRACE (NEGATIVE); NITRITE, URINE NEGATIVE (NEGATIVE); PH,URINE 8.5 (5.0-8.0); PROTEIN,URINE NEGATIVE (NEGATIVE); UGLUCOSE NEGATIVE (NEGATIVE); UROBILINOGEN,URINE 0.2 EU/dL (0.2)
[2017-10-31 20:39] LABS: BACTERIA,URINE Few /HPF (None Seen); RBC,URINE 0-2 /HPF (0-2); SQUAMOUS EPITHELIAL CELL,UR Few /HPF (None Seen)
[2017-10-31 21:07] VITALS: BP 119/73
[2017-10-31] MEDS: CYANOCOBALAMIN 500 MCG TABLET GT SCH (21:24)
[2017-10-31] MEDS: ASCORBIC ACID 500 MG TABLET GT SCH (21:24)
[2017-10-31] MEDS: SENNOSIDES 8.6 MG TABLET GT SCH (21:24)
[2017-10-31] MEDS: DULOXETINE HCL 30 MG CAPSULE.DR GT SCH (21:25)
[2017-11-01 00:10] VITALS: BP 112/58
[2017-11-01] MEDS: IPRATROPIUM NEB FS 0.5 MG/2.5 ML AMPUL.NEB NEB SCH ×4 (01:40→19:42)
[2017-11-01] MEDS: ALBUTEROL HALF STRENGTH 1.25 MG/3 ML VIAL.NEB NEB SCH ×4 (01:40→19:42)
[2017-11-01] MEDS: OMEPRAZOLE 20 MG CAPSULE.DR GT SCH (06:08)
[2017-11-01] MEDS: LEVOTHYROXINE SODIUM 25 MCG TABLET GT SCH (06:08)
[2017-11-01 06:11] VITALS: BP 126/60
[2017-11-01 07:20] LABS: BASOPHILS % (AUTO) 0.3 % (0.0-2.0); EOSINOPHILS # (AUTO) 0.3 /CMM (0.0-0.7); EOSINOPHILS % (AUTO) 2.5 % (0.0-6.0); HEMATOCRIT 32 % (33-45); HEMOGLOBIN 10.5 g/dL (11.5-14.8); LYMPHOCYTES # (AUTO) 1.5 /CMM (0.8-4.8); LYMPHOCYTES % (AUTO) 15.2 % (20.0-44.0); MEAN CORPUSCULAR HEMOGLOBIN 30 PG (26.0-33.0); MEAN CORPUSCULAR HGB CONC 33 g/dl (31.0-36.0); MEAN CORPUSCULAR VOLUME 90 fL (82-100); MONOCYTES # (AUTO) 1.1 /CMM (0.1-1.30); MONOCYTES % (AUTO) 11.1 % (2.0-12.0); NEUTROPHILS # (AUTO) 7.2 /CMM (1.8-8.9); NEUTROPHILS % (AUTO) 70.9 % (43.0-81.0); PLATELET COUNT (AUTO) 300 /CMM (150-450); RDW COEFFICIENT OF VARIATION 15.9 (11.5-15.0); RED BLOOD CELL COUNT(AUTO) 3.53 MIL/uL (4.0-5.2); WHITE BLOOD COUNT (AUTO) 10.1 K/uL (4.3-11.0)
[2017-11-01 08:00] VITALS: BP 116/69
[2017-11-01] MEDS: HYDROGEN PEROXIDE 480 ML BOTTLE TP SCH ×2 (09:00→20:26)
[2017-11-01] MEDS: METOCLOPRAMIDE HCL 10 MG/10 ML UDC GT SCH ×3 (09:12→17:58)
[2017-11-01] MEDS: POLYETHYLENE GLYCOL 3350 17 GM POWD.PACK GT SCH (09:12)
[2017-11-01] MEDS: FERROUS SULFATE - FOR SA ONLY 330 MG/7.5 ML UDC GT SCH (09:12)
[2017-11-01] MEDS: MECLIZINE HCL 12.5 MG TABLET GT SCH ×2 (09:12→20:26)
[2017-11-01] MEDS: NYSTATIN TOP POWDER 15 GM BOTTLE TP SCH ×2 (09:14→20:27)
[2017-11-01] MEDS: Z GUARD REMEDY 4 OZ OINT TP SCH ×4 (09:14→20:27)
--- NOTE | 2017-11-01 10:00 | NUR ---
Result of Chest Xray and CBC (WBC 10.1) reported to AJ Diaz ID no new order given at this time but instead will watch her for now. Cheli, daughter made aware of the CXR and CBC result and the plan for now.
[2017-11-01 14:26] VITALS: BP 116/68
--- NOTE | 2017-11-01 16:55 | NUR ---
GT site redness seen & examined by AJ Kelly, with new order to use Rupal cohesive seal around the stoma to protect the skin. Central supply department notified and will bring supply if available. Endorsed.
[2017-11-01 18:37] VITALS: BP 123/73
[2017-11-01 19:29] VITALS: BP 115/61
[2017-11-01] MEDS: ASCORBIC ACID 500 MG TABLET GT SCH (20:26)
[2017-11-01] MEDS: CYANOCOBALAMIN 500 MCG TABLET GT SCH (20:26)
[2017-11-01] MEDS: SENNOSIDES 8.6 MG TABLET GT SCH (20:26)
[2017-11-01] MEDS: FIBERSOURCE HN 1,000 ML BOTTLE GT PRN (20:31)
[2017-11-01] MEDS: DULOXETINE HCL 30 MG CAPSULE.DR GT SCH (21:10)
[2017-11-02 00:07] VITALS: BP 122/68
[2017-11-02] MEDS: ALBUTEROL HALF STRENGTH 1.25 MG/3 ML VIAL.NEB NEB SCH ×4 (00:59→19:54)
[2017-11-02] MEDS: IPRATROPIUM NEB FS 0.5 MG/2.5 ML AMPUL.NEB NEB SCH ×4 (00:59→19:54)
[2017-11-02] MEDS: LEVOTHYROXINE SODIUM 25 MCG TABLET GT SCH (05:10)
[2017-11-02] MEDS: OMEPRAZOLE 20 MG CAPSULE.DR GT SCH (05:10)
[2017-11-02 06:35] VITALS: BP 118/62
[2017-11-02 07:37] VITALS: BP 132/73
[2017-11-02] MEDS: HYDROGEN PEROXIDE 480 ML BOTTLE TP SCH ×2 (09:00→20:09)
[2017-11-02] MEDS: MECLIZINE HCL 12.5 MG TABLET GT SCH ×2 (09:00→20:09)
[2017-11-02] MEDS: Z GUARD REMEDY 4 OZ OINT TP SCH ×4 (09:00→20:09)
[2017-11-02] MEDS: FERROUS SULFATE - FOR SA ONLY 330 MG/7.5 ML UDC GT SCH (09:00)
[2017-11-02] MEDS: METOCLOPRAMIDE HCL 10 MG/10 ML UDC GT SCH ×3 (09:00→17:00)
[2017-11-02] MEDS: POLYETHYLENE GLYCOL 3350 17 GM POWD.PACK GT SCH (09:00)
[2017-11-02] MEDS: NYSTATIN TOP POWDER 15 GM BOTTLE TP SCH ×2 (09:00→20:09)
[2017-11-02 12:00] VITALS: BP 142/71
[2017-11-02] MEDS: ACETAMINOPHEN W/ CODEINE#3 1 EA TABLET GT PRN (15:12)
[2017-11-02 18:40] VITALS: BP 140/66
[2017-11-02 20:03] VITALS: BP 121/65
[2017-11-02] MEDS: ASCORBIC ACID 500 MG TABLET GT SCH (20:09)
[2017-11-02] MEDS: SENNOSIDES 8.6 MG TABLET GT SCH (20:09)
[2017-11-02] MEDS: CYANOCOBALAMIN 500 MCG TABLET GT SCH (20:09)
[2017-11-02] MEDS: FIBERSOURCE HN 1,000 ML BOTTLE GT PRN (20:19)
[2017-11-02] MEDS: SIMETHICONE SUSP 40 MG/0.6 ML BOTTLE GT PRN (20:19)
[2017-11-02] MEDS: DULOXETINE HCL 30 MG CAPSULE.DR GT SCH (21:00)
[2017-11-03 00:47] VITALS: BP 130/72
[2017-11-03] MEDS: IPRATROPIUM NEB FS 0.5 MG/2.5 ML AMPUL.NEB NEB SCH ×4 (02:13→19:35)
[2017-11-03] MEDS: ALBUTEROL HALF STRENGTH 1.25 MG/3 ML VIAL.NEB NEB SCH ×4 (02:13→19:35)
[2017-11-03] MEDS: LEVOTHYROXINE SODIUM 25 MCG TABLET GT SCH (05:09)
[2017-11-03] MEDS: MAGNESIUM HYDROXIDE 30 ML UDC GT PRN (05:09)
[2017-11-03] MEDS: OMEPRAZOLE 20 MG CAPSULE.DR GT SCH (05:09)
[2017-11-03 06:02] VITALS: BP 129/58
[2017-11-03 07:38] VITALS: BP 126/74
[2017-11-03] MEDS: FERROUS SULFATE - FOR SA ONLY 330 MG/7.5 ML UDC GT SCH (09:56)
[2017-11-03] MEDS: MECLIZINE HCL 12.5 MG TABLET GT SCH ×2 (09:56→20:11)
[2017-11-03] MEDS: HYDROGEN PEROXIDE 480 ML BOTTLE TP SCH ×2 (09:56→20:11)
[2017-11-03] MEDS: Z GUARD REMEDY 4 OZ OINT TP SCH ×4 (09:56→20:12)
[2017-11-03] MEDS: POLYETHYLENE GLYCOL 3350 17 GM POWD.PACK GT SCH (09:56)
[2017-11-03] MEDS: METOCLOPRAMIDE HCL 10 MG/10 ML UDC GT SCH ×4 (09:56→17:00)
[2017-11-03] MEDS: NYSTATIN TOP POWDER 15 GM BOTTLE TP SCH ×2 (09:56→20:12)
[2017-11-03 12:00] VITALS: BP 126/68
[2017-11-03] MEDS: FIBERSOURCE HN 1,000 ML BOTTLE GT PRN (18:29)
[2017-11-03 19:02] VITALS: BP 101/47
[2017-11-03] MEDS: ASCORBIC ACID 500 MG TABLET GT SCH (20:11)
[2017-11-03] MEDS: SENNOSIDES 8.6 MG TABLET GT SCH (20:11)
[2017-11-03] MEDS: CYANOCOBALAMIN 500 MCG TABLET GT SCH (20:11)
[2017-11-03 20:34] VITALS: BP 133/72
[2017-11-03] MEDS: DULOXETINE HCL 30 MG CAPSULE.DR GT SCH (21:07)
[2017-11-04 00:28] VITALS: BP 127/72
[2017-11-04] MEDS: IPRATROPIUM NEB FS 0.5 MG/2.5 ML AMPUL.NEB NEB SCH ×4 (02:04→19:25)
[2017-11-04] MEDS: ALBUTEROL HALF STRENGTH 1.25 MG/3 ML VIAL.NEB NEB SCH ×4 (02:04→19:25)
[2017-11-04] MEDS: LEVOTHYROXINE SODIUM 25 MCG TABLET GT SCH (05:05)
[2017-11-04] MEDS: SIMETHICONE SUSP 40 MG/0.6 ML BOTTLE GT PRN (05:05)
[2017-11-04] MEDS: OMEPRAZOLE 20 MG CAPSULE.DR GT SCH (05:05)
[2017-11-04] MEDS: MAGNESIUM HYDROXIDE 30 ML UDC GT PRN (05:05)
[2017-11-04 06:17] VITALS: BP 121/79
[2017-11-04] MEDS: POLYETHYLENE GLYCOL 3350 17 GM POWD.PACK GT SCH (09:00)
[2017-11-04] MEDS: Z GUARD REMEDY 4 OZ OINT TP SCH ×3 (09:00→20:33)
[2017-11-04] MEDS: HYDROGEN PEROXIDE 480 ML BOTTLE TP SCH ×2 (09:00→20:33)
[2017-11-04] MEDS: FERROUS SULFATE - FOR SA ONLY 330 MG/7.5 ML UDC GT SCH (09:00)
[2017-11-04] MEDS: NYSTATIN TOP POWDER 15 GM BOTTLE TP SCH (09:00)
[2017-11-04] MEDS: MECLIZINE HCL 12.5 MG TABLET GT SCH ×2 (09:00→20:32)
[2017-11-04] MEDS: METOCLOPRAMIDE HCL 10 MG/10 ML UDC GT SCH ×3 (09:00→17:00)
[2017-11-04 12:00] VITALS: BP 132/65
[2017-11-04] MEDS: TRAMADOL HCL 50 MG TABLET GT PRN (12:49)
[2017-11-04 18:00] VITALS: BP 117/51
[2017-11-04] MEDS: SENNOSIDES 8.6 MG TABLET GT SCH (20:32)
[2017-11-04] MEDS: CYANOCOBALAMIN 500 MCG TABLET GT SCH (20:33)
[2017-11-04] MEDS: ASCORBIC ACID 500 MG TABLET GT SCH (20:33)
[2017-11-04 20:34] VITALS: BP 112/71
[2017-11-04] MEDS: DULOXETINE HCL 30 MG CAPSULE.DR GT SCH (21:06)
[2017-11-05] VITALS: BP 126/54
[2017-11-05] MEDS: IPRATROPIUM NEB FS 0.5 MG/2.5 ML AMPUL.NEB NEB SCH ×4 (01:41→19:15)
[2017-11-05] MEDS: ALBUTEROL HALF STRENGTH 1.25 MG/3 ML VIAL.NEB NEB SCH ×4 (01:41→19:15)
[2017-11-05] MEDS: LEVOTHYROXINE SODIUM 25 MCG TABLET GT SCH (05:02)
[2017-11-05] MEDS: OMEPRAZOLE 20 MG CAPSULE.DR GT SCH (05:02)
[2017-11-05] MEDS: FIBERSOURCE HN 1,000 ML BOTTLE GT PRN (05:09)
[2017-11-05 06:13] VITALS: BP 113/79
[2017-11-05 07:25] VITALS: BP 102/53
[2017-11-05] MEDS: FERROUS SULFATE - FOR SA ONLY 330 MG/7.5 ML UDC GT SCH (08:24)
[2017-11-05] MEDS: MECLIZINE HCL 12.5 MG TABLET GT SCH ×2 (08:24→21:21)
[2017-11-05] MEDS: POLYETHYLENE GLYCOL 3350 17 GM POWD.PACK GT SCH (08:24)
[2017-11-05] MEDS: METOCLOPRAMIDE HCL 10 MG/10 ML UDC GT SCH ×3 (08:25→16:09)
[2017-11-05] MEDS: Z GUARD REMEDY 4 OZ OINT TP SCH ×2 (08:25→21:21)
[2017-11-05] MEDS: HYDROGEN PEROXIDE 480 ML BOTTLE TP SCH ×2 (08:25→21:21)
[2017-11-05 17:33] VITALS: BP 102/53
[2017-11-05 18:01] VITALS: BP 118/66
[2017-11-05 21:00] VITALS: BP 101/58
[2017-11-05] MEDS: DULOXETINE HCL 30 MG CAPSULE.DR GT SCH (21:21)
[2017-11-05] MEDS: ASCORBIC ACID 500 MG TABLET GT SCH (21:21)
[2017-11-05] MEDS: CYANOCOBALAMIN 500 MCG TABLET GT SCH (21:21)
[2017-11-05] MEDS: SENNOSIDES 8.6 MG TABLET GT SCH (21:21)
[2017-11-06 00:01] VITALS: BP 114/68
[2017-11-06] MEDS: ALBUTEROL HALF STRENGTH 1.25 MG/3 ML VIAL.NEB NEB SCH ×4 (01:25→19:33)
[2017-11-06] MEDS: IPRATROPIUM NEB FS 0.5 MG/2.5 ML AMPUL.NEB NEB SCH ×4 (01:25→19:33)
[2017-11-06] MEDS: FIBERSOURCE HN 1,000 ML BOTTLE GT PRN (05:21)
[2017-11-06] MEDS: LEVOTHYROXINE SODIUM 25 MCG TABLET GT SCH (05:21)
[2017-11-06] MEDS: OMEPRAZOLE 20 MG CAPSULE.DR GT SCH (05:21)
[2017-11-06 06:25] VITALS: BP 116/54
[2017-11-06 08:51] VITALS: BP 116/79
[2017-11-06] MEDS: POLYETHYLENE GLYCOL 3350 17 GM POWD.PACK GT SCH (09:00)
[2017-11-06] MEDS: FERROUS SULFATE - FOR SA ONLY 330 MG/7.5 ML UDC GT SCH (09:00)
[2017-11-06] MEDS: MECLIZINE HCL 12.5 MG TABLET GT SCH ×2 (09:00→20:28)
[2017-11-06] MEDS: METOCLOPRAMIDE HCL 10 MG/10 ML UDC GT SCH ×3 (09:00→17:51)
[2017-11-06] MEDS: HYDROGEN PEROXIDE 480 ML BOTTLE TP SCH ×2 (09:00→20:28)
[2017-11-06] MEDS: Z GUARD REMEDY 4 OZ OINT TP SCH ×2 (09:00→20:28)
[2017-11-06 12:00] VITALS: BP 106/48
[2017-11-06 18:51] VITALS: BP 115/42
[2017-11-06 20:15] VITALS: BP 128/78
[2017-11-06] MEDS: ASCORBIC ACID 500 MG TABLET GT SCH (20:28)
[2017-11-06] MEDS: CYANOCOBALAMIN 500 MCG TABLET GT SCH (20:28)
[2017-11-06] MEDS: SENNOSIDES 8.6 MG TABLET GT SCH (20:28)
[2017-11-06] MEDS: DULOXETINE HCL 30 MG CAPSULE.DR GT SCH (21:41)
[2017-11-07 01:10] VITALS: BP 118/66
[2017-11-07] MEDS: IPRATROPIUM NEB FS 0.5 MG/2.5 ML AMPUL.NEB NEB SCH ×4 (01:35→19:24)
[2017-11-07] MEDS: ALBUTEROL HALF STRENGTH 1.25 MG/3 ML VIAL.NEB NEB SCH ×4 (01:35→19:24)
[2017-11-07] MEDS: LEVOTHYROXINE SODIUM 25 MCG TABLET GT SCH (05:17)
[2017-11-07] MEDS: OMEPRAZOLE 20 MG CAPSULE.DR GT SCH (05:17)
[2017-11-07 06:22] VITALS: BP 122/60
[2017-11-07] MEDS: FIBERSOURCE HN 1,000 ML BOTTLE GT PRN (06:41)
[2017-11-07 07:52] VITALS: BP 135/100
[2017-11-07] MEDS: METOCLOPRAMIDE HCL 10 MG/10 ML UDC GT SCH ×3 (08:02→16:22)
[2017-11-07] MEDS: MECLIZINE HCL 12.5 MG TABLET GT SCH ×2 (08:02→21:01)
[2017-11-07] MEDS: ACETAMINOPHEN W/ CODEINE#3 1 EA TABLET GT PRN (08:02)
[2017-11-07] MEDS: POLYETHYLENE GLYCOL 3350 17 GM POWD.PACK GT SCH (08:02)
[2017-11-07] MEDS: FERROUS SULFATE - FOR SA ONLY 330 MG/7.5 ML UDC GT SCH (08:02)
[2017-11-07] MEDS: HYDROGEN PEROXIDE 480 ML BOTTLE TP SCH ×2 (08:02→21:01)
[2017-11-07] MEDS: Z GUARD REMEDY 4 OZ OINT TP SCH ×2 (08:03→21:02)
--- NOTE | 2017-11-07 09:00 | NUR ---
Night charge nurse endorsed that pt has a small blister on the right buttock. Assessed pt's buttocks and found a small blister on the right buttock, surrounding area pink and intact. Received order to apply Mepilex foam dressing q shift for 14 days. Notified Cheli.
[2017-11-07 12:00] VITALS: BP 115/72
[2017-11-07 18:44] VITALS: BP 117/52
[2017-11-07 19:48] VITALS: BP 129/72
[2017-11-07] MEDS: CYANOCOBALAMIN 500 MCG TABLET GT SCH (21:01)
[2017-11-07] MEDS: ASCORBIC ACID 500 MG TABLET GT SCH (21:01)
[2017-11-07] MEDS: SENNOSIDES 8.6 MG TABLET GT SCH (21:01)
[2017-11-07] MEDS: DULOXETINE HCL 30 MG CAPSULE.DR GT SCH (21:02)
[2017-11-08 00:53] VITALS: BP 130/64
[2017-11-08] MEDS: IPRATROPIUM NEB FS 0.5 MG/2.5 ML AMPUL.NEB NEB SCH ×4 (01:55→19:55)
[2017-11-08] MEDS: ALBUTEROL HALF STRENGTH 1.25 MG/3 ML VIAL.NEB NEB SCH ×4 (01:55→19:55)
[2017-11-08] MEDS: LEVOTHYROXINE SODIUM 25 MCG TABLET GT SCH (05:15)
[2017-11-08] MEDS: OMEPRAZOLE 20 MG CAPSULE.DR GT SCH (05:15)
[2017-11-08 06:21] VITALS: BP 122/68
[2017-11-08] MEDS: FIBERSOURCE HN 1,000 ML BOTTLE GT PRN (06:31)
--- NOTE | 2017-11-08 07:39 | NUR ---
Social Service Section of [facility] (3rd quarter) completed. Resident's daughter Cheli is her electrical contacts adjuster and visits frequently. She feels that she will be a resident of subacute jail. Daughter visits as often as she can and is her responsible green party. Current plan of care will continue. Resident seen by programs manager Dr. Avendaño on 08/23/2017, by the shredded filler cutter operator Dr. Ridley on 03/31/2017 and received glasses, and by the dentist Dr. Flor CHIN on 01/23/2017.
[2017-11-08 07:45] VITALS: BP 148/67
[2017-11-08] MEDS: POLYETHYLENE GLYCOL 3350 17 GM POWD.PACK GT SCH (09:04)
[2017-11-08] MEDS: MECLIZINE HCL 12.5 MG TABLET GT SCH ×2 (09:04→20:21)
[2017-11-08] MEDS: FERROUS SULFATE - FOR SA ONLY 330 MG/7.5 ML UDC GT SCH (09:04)
[2017-11-08] MEDS: METOCLOPRAMIDE HCL 10 MG/10 ML UDC GT SCH ×3 (09:04→16:26)
[2017-11-08] MEDS: HYDROGEN PEROXIDE 480 ML BOTTLE TP SCH ×2 (09:05→20:21)
[2017-11-08] MEDS: Z GUARD REMEDY 4 OZ OINT TP SCH ×2 (09:05→20:22)
--- NOTE | 2017-11-08 15:00 | NUR ---
Ko Jules recommends no sting barrier film application around GT tube to prevent skin breakdown ,start 1when its available.faxed to the pharmacy.
--- NOTE | 2017-11-08 15:00 | NUR ---
Seen and examined by NP. Jules for silver nitrite application at GT site.procedure done.Gt site covered by dressing.continue to monitor.she will follow up on next week.
--- NOTE | 2017-11-08 16:50 | NUR ---
RT NOTE END OF SHIFT SUMMERY PT REMAINS ON [facility] VENT WITH NOTED SETTINGS. SX MILD AMOUNT OF THIN WHITE SECRETIONS. TRACH AND VENT TUBING INTACT. VENT PLUGGED INTO RED OUTLET. AMBU BAG/SPARE TRACH AT BEDSIDE. VENT ALARMS ARE SET AND AUDIBLE PER POLICY. DISCONNECT ALARM VERIFIED. NO DISTRESS T/O SHIFT. Addendum: 11/08/17 at 1650 by AMELIE MAYBERRY RT Amended: Links added.
[2017-11-08 17:39] VITALS: BP 148/67
[2017-11-08 18:17] VITALS: BP 148/67
[2017-11-08] MEDS: CYANOCOBALAMIN 500 MCG TABLET GT SCH (20:21)
[2017-11-08] MEDS: ASCORBIC ACID 500 MG TABLET GT SCH (20:21)
[2017-11-08] MEDS: SENNOSIDES 8.6 MG TABLET GT SCH (20:21)
[2017-11-08 20:28] VITALS: BP 122/59
[2017-11-08] MEDS: DULOXETINE HCL 30 MG CAPSULE.DR GT SCH (21:50)
[2017-11-09 00:25] VITALS: BP 118/68
[2017-11-09] MEDS: ALBUTEROL HALF STRENGTH 1.25 MG/3 ML VIAL.NEB NEB SCH ×4 (00:55→19:55)
[2017-11-09] MEDS: IPRATROPIUM NEB FS 0.5 MG/2.5 ML AMPUL.NEB NEB SCH ×4 (00:55→19:55)
--- NOTE | 2017-11-09 02:13 | NUR ---
PT STABLE ON RECEIVED VENTS SETTINGS. NO S/S OF SOB NOTED. PT SX PRN FOR MOD AMOUNT OF PALE YELLOW SECRETIONS. ALARMS CHECKED AND AUDIBLE THROUGHOUT SUBACUTE UNIT. MECHANICAL VENTILATOR PLUGGED INTO RED OUTLET. TRACH CARE DONE. WILL CONTINUE TO MONITOR PT. Addendum: 11/09/17 at 0213 by SRIDHAR REYES RT Amended: Links added.
[2017-11-09] MEDS: OMEPRAZOLE 20 MG CAPSULE.DR GT SCH (05:34)
[2017-11-09] MEDS: LEVOTHYROXINE SODIUM 25 MCG TABLET GT SCH (05:34)
[2017-11-09 06:10] VITALS: BP 122/60
[2017-11-09 07:32] VITALS: BP 133/85
[2017-11-09] MEDS: HYDROGEN PEROXIDE 480 ML BOTTLE TP SCH ×2 (08:30→21:10)
[2017-11-09] MEDS: POLYETHYLENE GLYCOL 3350 17 GM POWD.PACK GT SCH (08:30)
[2017-11-09] MEDS: MECLIZINE HCL 12.5 MG TABLET GT SCH ×2 (08:30→21:10)
[2017-11-09] MEDS: METOCLOPRAMIDE HCL 10 MG/10 ML UDC GT SCH ×3 (08:30→16:29)
[2017-11-09] MEDS: Z GUARD REMEDY 4 OZ OINT TP SCH ×2 (08:30→21:10)
[2017-11-09] MEDS: FERROUS SULFATE - FOR SA ONLY 330 MG/7.5 ML UDC GT SCH (08:30)
[2017-11-09 13:32] VITALS: BP 133/85
[2017-11-09 18:22] VITALS: BP 120/65
[2017-11-09] MEDS: MAGNESIUM HYDROXIDE 30 ML UDC GT PRN (21:10)
[2017-11-09] MEDS: DULOXETINE HCL 30 MG CAPSULE.DR GT SCH (21:10)
[2017-11-09] MEDS: CYANOCOBALAMIN 500 MCG TABLET GT SCH (21:10)
[2017-11-09] MEDS: SENNOSIDES 8.6 MG TABLET GT SCH (21:10)
[2017-11-09] MEDS: ASCORBIC ACID 500 MG TABLET GT SCH (21:10)
[2017-11-09] MEDS: SIMETHICONE SUSP 40 MG/0.6 ML BOTTLE GT PRN (21:10)
[2017-11-09 22:34] VITALS: BP 133/82
[2017-11-10 01:03] VITALS: BP 127/77
[2017-11-10] MEDS: ALBUTEROL HALF STRENGTH 1.25 MG/3 ML VIAL.NEB NEB SCH ×4 (01:31→19:30)
[2017-11-10] MEDS: IPRATROPIUM NEB FS 0.5 MG/2.5 ML AMPUL.NEB NEB SCH ×4 (01:31→19:30)
[2017-11-10] MEDS: OMEPRAZOLE 20 MG CAPSULE.DR GT SCH (05:30)
[2017-11-10] MEDS: LEVOTHYROXINE SODIUM 25 MCG TABLET GT SCH (05:30)
[2017-11-10] MEDS: FIBERSOURCE HN 1,000 ML BOTTLE GT PRN (05:30)
[2017-11-10 06:12] VITALS: BP 110/68
[2017-11-10 07:32] VITALS: BP 107/43
[2017-11-10] MEDS: METOCLOPRAMIDE HCL 10 MG/10 ML UDC GT SCH ×3 (08:45→17:29)
[2017-11-10] MEDS: HYDROGEN PEROXIDE 480 ML BOTTLE TP SCH ×2 (08:45→20:56)
[2017-11-10] MEDS: FERROUS SULFATE - FOR SA ONLY 330 MG/7.5 ML UDC GT SCH (08:45)
[2017-11-10] MEDS: POLYETHYLENE GLYCOL 3350 17 GM POWD.PACK GT SCH (08:45)
[2017-11-10] MEDS: MECLIZINE HCL 12.5 MG TABLET GT SCH ×2 (08:45→20:56)
[2017-11-10] MEDS: Z GUARD REMEDY 4 OZ OINT TP SCH ×2 (08:45→20:56)
[2017-11-10 15:56] VITALS: BP 107/43
--- NOTE | 2017-11-10 16:09 | NUR ---
Pt stable on mechanical vent throughout the shift. Trach is secure. Vent is plugged into a red outlet, alarms are set and audible, and BVM is at bedside. Addendum: 11/10/17 at 1610 by MAI PALOMO RT Amended: Links added.
[2017-11-10 18:19] VITALS: BP 112/65
[2017-11-10 20:00] VITALS: BP 143/84
[2017-11-10] MEDS: ASCORBIC ACID 500 MG TABLET GT SCH (20:56)
[2017-11-10] MEDS: MAGNESIUM HYDROXIDE 30 ML UDC GT PRN (20:56)
[2017-11-10] MEDS: SENNOSIDES 8.6 MG TABLET GT SCH (20:56)
[2017-11-10] MEDS: CYANOCOBALAMIN 500 MCG TABLET GT SCH (20:56)
[2017-11-10] MEDS: SIMETHICONE SUSP 40 MG/0.6 ML BOTTLE GT PRN (20:56)
[2017-11-10] MEDS: DULOXETINE HCL 30 MG CAPSULE.DR GT SCH (21:06)
[2017-11-11] VITALS: BP 119/72
[2017-11-11] MEDS: IPRATROPIUM NEB FS 0.5 MG/2.5 ML AMPUL.NEB NEB SCH ×4 (02:11→19:59)
[2017-11-11] MEDS: ALBUTEROL HALF STRENGTH 1.25 MG/3 ML VIAL.NEB NEB SCH ×4 (02:11→19:59)
[2017-11-11] MEDS: SIMETHICONE SUSP 40 MG/0.6 ML BOTTLE GT PRN (05:29)
[2017-11-11] MEDS: LEVOTHYROXINE SODIUM 25 MCG TABLET GT SCH (05:29)
[2017-11-11] MEDS: FIBERSOURCE HN 1,000 ML BOTTLE GT PRN (05:29)
[2017-11-11] MEDS: OMEPRAZOLE 20 MG CAPSULE.DR GT SCH (05:29)
[2017-11-11 06:08] VITALS: BP 124/58
[2017-11-11] MEDS: POLYETHYLENE GLYCOL 3350 17 GM POWD.PACK GT SCH (09:42)
[2017-11-11] MEDS: FERROUS SULFATE - FOR SA ONLY 330 MG/7.5 ML UDC GT SCH (09:42)
[2017-11-11] MEDS: MECLIZINE HCL 12.5 MG TABLET GT SCH ×2 (09:42→21:08)
[2017-11-11] MEDS: METOCLOPRAMIDE HCL 10 MG/10 ML UDC GT SCH ×3 (09:42→17:38)
[2017-11-11] MEDS: Z GUARD REMEDY 4 OZ OINT TP SCH ×2 (09:42→21:08)
[2017-11-11] MEDS: HYDROGEN PEROXIDE 480 ML BOTTLE TP SCH ×2 (09:42→21:08)
[2017-11-11] MEDS: CLONIDINE HCL 0.1 MG TABLET GT PRN ×2 (12:18→17:44)
[2017-11-11 12:19] VITALS: BP 117/82
--- NOTE | 2017-11-11 17:44 | NUR ---
RECEIVED PT ON [facility] VENT TRACH ON SETTINGS PER MD. AIRWAY PATENT. SX MODERATE AMOUNT OF THICK PALE YELLOW SECRETIONS. TRACH AND VENT TUBING INTACT. VENT PLUGGED INTO RED OUTLET. AMBU BAG/SPARE TRACH AT BEDSIDE. VENT ALARMS ARE SET AND AUDIBLE. Addendum: 11/11/17 at 1745 by ATA PALM RT Amended: Links added.
[2017-11-11 18:00] VITALS: BP 119/72
[2017-11-11 20:38] VITALS: BP 148/78
[2017-11-11] MEDS: ASCORBIC ACID 500 MG TABLET GT SCH (21:08)
[2017-11-11] MEDS: SENNOSIDES 8.6 MG TABLET GT SCH (21:08)
[2017-11-11] MEDS: CYANOCOBALAMIN 500 MCG TABLET GT SCH (21:08)
[2017-11-11] MEDS: DULOXETINE HCL 30 MG CAPSULE.DR GT SCH (21:08)
[2017-11-12] MEDS: FIBERSOURCE HN 1,000 ML BOTTLE GT PRN (00:18)
[2017-11-12] MEDS: ALBUTEROL HALF STRENGTH 1.25 MG/3 ML VIAL.NEB NEB SCH ×4 (01:43→20:15)
[2017-11-12] MEDS: IPRATROPIUM NEB FS 0.5 MG/2.5 ML AMPUL.NEB NEB SCH ×4 (01:43→20:15)
[2017-11-12 01:54] VITALS: BP 127/76
[2017-11-12] MEDS: OMEPRAZOLE 20 MG CAPSULE.DR GT SCH (05:22)
[2017-11-12] MEDS: LEVOTHYROXINE SODIUM 25 MCG TABLET GT SCH (05:22)
[2017-11-12 06:15] VITALS: BP 112/56
[2017-11-12 07:35] VITALS: BP 138/72
[2017-11-12] MEDS: FERROUS SULFATE - FOR SA ONLY 330 MG/7.5 ML UDC GT SCH (09:47)
[2017-11-12] MEDS: MECLIZINE HCL 12.5 MG TABLET GT SCH ×2 (09:47→20:41)
[2017-11-12] MEDS: HYDROGEN PEROXIDE 480 ML BOTTLE TP SCH ×2 (09:47→20:41)
[2017-11-12] MEDS: POLYETHYLENE GLYCOL 3350 17 GM POWD.PACK GT SCH (09:47)
[2017-11-12] MEDS: METOCLOPRAMIDE HCL 10 MG/10 ML UDC GT SCH ×3 (09:47→16:36)
[2017-11-12] MEDS: Z GUARD REMEDY 4 OZ OINT TP SCH ×2 (09:52→20:41)
[2017-11-12 16:14] VITALS: BP 138/72
--- NOTE | 2017-11-12 16:54 | NUR ---
NO VENT CHANGES MADE. Addendum: 11/12/17 at 1654 by DRU ZHAO RT Amended: Links added.
[2017-11-12 18:23] VITALS: BP 122/66
[2017-11-12 20:06] VITALS: BP 140/85
[2017-11-12] MEDS: CYANOCOBALAMIN 500 MCG TABLET GT SCH (20:41)
[2017-11-12] MEDS: ASCORBIC ACID 500 MG TABLET GT SCH (20:41)
[2017-11-12] MEDS: SENNOSIDES 8.6 MG TABLET GT SCH (20:41)
[2017-11-12] MEDS: DULOXETINE HCL 30 MG CAPSULE.DR GT SCH (22:30)
[2017-11-13 00:27] VITALS: BP 149/70
[2017-11-13] MEDS: IPRATROPIUM NEB FS 0.5 MG/2.5 ML AMPUL.NEB NEB SCH ×4 (01:33→20:23)
[2017-11-13] MEDS: ALBUTEROL HALF STRENGTH 1.25 MG/3 ML VIAL.NEB NEB SCH ×4 (01:33→20:23)
[2017-11-13] MEDS: OMEPRAZOLE 20 MG CAPSULE.DR GT SCH (05:20)
[2017-11-13] MEDS: LEVOTHYROXINE SODIUM 25 MCG TABLET GT SCH (05:20)
[2017-11-13 06:15] VITALS: BP 140/72
[2017-11-13 07:48] VITALS: BP 126/71
[2017-11-13] MEDS: MECLIZINE HCL 12.5 MG TABLET GT SCH ×2 (09:20→20:32)
[2017-11-13] MEDS: METOCLOPRAMIDE HCL 10 MG/10 ML UDC GT SCH ×3 (09:20→17:00)
[2017-11-13] MEDS: POLYETHYLENE GLYCOL 3350 17 GM POWD.PACK GT SCH (09:20)
[2017-11-13] MEDS: FERROUS SULFATE - FOR SA ONLY 330 MG/7.5 ML UDC GT SCH (09:20)
[2017-11-13] MEDS: Z GUARD REMEDY 4 OZ OINT TP SCH ×2 (09:21→20:33)
[2017-11-13] MEDS: HYDROGEN PEROXIDE 480 ML BOTTLE TP SCH ×2 (09:21→20:33)
[2017-11-13] MEDS: ACETAMINOPHEN W/ CODEINE#3 1 EA TABLET GT PRN (10:58)
--- NOTE | 2017-11-13 11:05 | NUR ---
made rounds and seen the pt and no new orders noted.
[2017-11-13 12:00] VITALS: BP 111/72
[2017-11-13] MEDS: CLONIDINE HCL 0.1 MG TABLET GT PRN ×2 (12:23→18:08)
--- NOTE | 2017-11-13 16:30 | NUR ---
RECEIVED PT ON [facility] VENT TRACH. ON VENT SETTINGS NOTED AND ORDERED BY . AIRWAY PATENT. SX MOD AMOUNT OF THICK PALE YELLOW SECRETIONS. TRACH AND VENT TUBING INTACT. VENT PLUGGED INTO RED OUTLET. AMBU BAG/SPARE TRACH AT BEDSIDE. VENT ALARMS ARE SET AND AUDIBLE NO DISTRESS NOTED DURING SHIFT. Addendum: 11/13/17 at 1630 by ATA PALM RT Amended: Links added.
[2017-11-13] MEDS: FIBERSOURCE HN 1,000 ML BOTTLE GT PRN (18:08)
[2017-11-13 19:01] VITALS: BP 130/93
[2017-11-13] MEDS: ASCORBIC ACID 500 MG TABLET GT SCH (20:33)
[2017-11-13] MEDS: CYANOCOBALAMIN 500 MCG TABLET GT SCH (20:33)
[2017-11-13] MEDS: SENNOSIDES 8.6 MG TABLET GT SCH (20:33)
[2017-11-13 20:35] VITALS: BP 107/77
[2017-11-13] MEDS: DULOXETINE HCL 30 MG CAPSULE.DR GT SCH (21:21)
[2017-11-14 00:43] VITALS: BP 122/66
[2017-11-14] MEDS: ALBUTEROL HALF STRENGTH 1.25 MG/3 ML VIAL.NEB NEB SCH ×2 (01:02→07:33)
[2017-11-14] MEDS: IPRATROPIUM NEB FS 0.5 MG/2.5 ML AMPUL.NEB NEB SCH ×2 (01:02→07:33)
--- NOTE | 2017-11-14 04:34 | NUR ---
PT STABLE ON RECEIVED SETTINGS. NO SIGNS OF SOB NOTED. PT SX PRN FOR MOD AMOUNT OF PALE YELLOW SECRETIONS. ALARMS CHECKED AND AUDIBLE THROUGHOUT UNIT. VENTILATOR PLUGGED INTO RED OUTLET. WILL CONTINUE TO MONITOR PT. Addendum: 11/14/17 at 0435 by MINH SUNSHINE RT Amended: Links added.
[2017-11-14] MEDS: OMEPRAZOLE 20 MG CAPSULE.DR GT SCH (05:33)
[2017-11-14] MEDS: LEVOTHYROXINE SODIUM 25 MCG TABLET GT SCH (05:33)
[2017-11-14 06:40] VITALS: BP 133/70
[2017-11-14 07:51] VITALS: BP 96/54
[2017-11-14] MEDS: POLYETHYLENE GLYCOL 3350 17 GM POWD.PACK GT SCH (08:58)
[2017-11-14] MEDS: FERROUS SULFATE - FOR SA ONLY 330 MG/7.5 ML UDC GT SCH (08:58)
[2017-11-14] MEDS: MECLIZINE HCL 12.5 MG TABLET GT SCH (08:58)
[2017-11-14] MEDS: HYDROGEN PEROXIDE 480 ML BOTTLE TP SCH (08:59)
[2017-11-14] MEDS: METOCLOPRAMIDE HCL 10 MG/10 ML UDC GT SCH (08:59)
[2017-11-14] MEDS: Z GUARD REMEDY 4 OZ OINT TP SCH (08:59)
== END 2017-11-12 23:59 | disposition still patient (30) | DRG 207 ==
LOC: SA
PROVIDERS: ADMIT Internal Medicine Nephrology; ATTEND Internal Medicine Nephrology
PROC: 5A1955Z Respiratory Ventilation, Greater than 96 Consecutive Hours (ICD-10-PCS; principal; 2016-11-13)
DX: J96.11 Chronic respiratory failure with hypoxia (principal); D64.9 Anemia, unspecified; R13.10 Dysphagia, unspecified; Z99.11 Dependence on respirator [ventilator] status; Z93.0 Tracheostomy status; Z93.1 Gastrostomy status; E03.9 Hypothyroidism, unspecified; Z87.01 Personal history of pneumonia (recurrent)
CPT/HCPCS: 31720; 36415; 36600; 71010-TC; 74000-TC; 80048-TC; 80053-TC; 81000-TC; 82803-TC; 82962-TC; 83735-TC; 84100-TC; 84443-TC; 85025-TC; 87040-TC; 87086-TC; 87186-TC; 94003-TC; 94640-TC; 94760-TC; 94762-TC; 94799-TC; 97003-TC; 99082-TC; A4216; A4606; A4623; A6253; A6402; A7526; J0692; J0696; J2185; J2765; J7060; J8597; L8501; Z7610

== ENCOUNTER 2017-11-13 | Inpatient (IN) | payer MEDICARE, OTHER ==
[~2017-11-13] VITALS: Ht 154.9 cm; Wt 58.1 kg
[2017-11-14] MEDS ORDERED: IPRATROPIUM NEB FS 0.5 MG/2.5 ML AMPUL.NEB NEB PRN (11:45)
[2017-11-14] MEDS ORDERED: CYANOCOBALAMIN 500 MCG TABLET GT SCH (11:45)
[2017-11-14] MEDS ORDERED: TUBERCULIN,PURIF.PROT.DERIV. 5 TU/0.1 ML DISP.SYRIN ID SCH (11:45)
[2017-11-14] MEDS ORDERED: ONDANSETRON 4 MG TAB.RAPDIS GT PRN (11:45)
[2017-11-14] MEDS ORDERED: ALBUTEROL HALF STRENGTH 1.25 MG/3 ML VIAL.NEB NEB PRN (11:45)
[2017-11-14] MEDS ORDERED: DULOXETINE HCL 30 MG CAPSULE.DR GT SCH (11:45)
[2017-11-14] MEDS ORDERED: HYDROGEN PEROXIDE 480 ML BOTTLE TP PRN (11:45)
[2017-11-14] MEDS: METOCLOPRAMIDE HCL 10 MG/10 ML UDC GT SCH ×2 (13:28→17:12)
[2017-11-14] MEDS: FIBERSOURCE HN 1,000 ML BOTTLE GT PRN (15:43)
[2017-11-14 19:17] VITALS: BP 134/70
[2017-11-14] MEDS: IPRATROPIUM NEB FS 0.5 MG/2.5 ML AMPUL.NEB NEB SCH (20:18)
[2017-11-14] MEDS: ALBUTEROL HALF STRENGTH 1.25 MG/3 ML VIAL.NEB NEB SCH (20:18)
[2017-11-14] MEDS: SENNOSIDES 8.6 MG TABLET GT SCH (21:22)
[2017-11-14] MEDS: ASCORBIC ACID 500 MG TABLET GT SCH (21:22)
[2017-11-14] MEDS: MECLIZINE HCL 12.5 MG TABLET GT SCH (21:22)
[2017-11-14] MEDS: Z GUARD REMEDY 4 OZ OINT TP SCH (21:22)
[2017-11-14] MEDS: CYANOCOBALAMIN 500 MCG TABLET GT SCH (21:22)
[2017-11-14] MEDS: DULOXETINE HCL 30 MG CAPSULE.DR GT SCH (21:22)
[2017-11-14] MEDS: HYDROGEN PEROXIDE 480 ML BOTTLE TP SCH (21:22)
[2017-11-15] MEDS: ALBUTEROL HALF STRENGTH 1.25 MG/3 ML VIAL.NEB NEB SCH ×4 (01:54→19:32)
[2017-11-15] MEDS: IPRATROPIUM NEB FS 0.5 MG/2.5 ML AMPUL.NEB NEB SCH ×4 (01:54→19:32)
[2017-11-15] MEDS: OMEPRAZOLE 20 MG CAPSULE.DR GT SCH (05:19)
[2017-11-15] MEDS: LEVOTHYROXINE SODIUM 25 MCG TABLET GT SCH (05:19)
[2017-11-15 07:30] VITALS: BP 113/59
[2017-11-15] MEDS: MECLIZINE HCL 12.5 MG TABLET GT SCH ×2 (08:26→20:35)
[2017-11-15] MEDS: FERROUS SULFATE - FOR SA ONLY 330 MG/7.5 ML UDC GT SCH (08:27)
[2017-11-15] MEDS: HYDROGEN PEROXIDE 480 ML BOTTLE TP SCH ×2 (08:27→20:35)
[2017-11-15] MEDS: METOCLOPRAMIDE HCL 10 MG/10 ML UDC GT SCH ×3 (08:27→17:40)
[2017-11-15] MEDS: POLYETHYLENE GLYCOL 3350 17 GM POWD.PACK GT SCH (08:27)
[2017-11-15] MEDS: Z GUARD REMEDY 4 OZ OINT TP SCH ×2 (08:27→20:35)
[2017-11-15 19:29] VITALS: BP 134/56
[2017-11-15] MEDS: ASCORBIC ACID 500 MG TABLET GT SCH (20:35)
[2017-11-15] MEDS: SENNOSIDES 8.6 MG TABLET GT SCH (20:35)
[2017-11-15] MEDS: CYANOCOBALAMIN 500 MCG TABLET GT SCH (20:35)
[2017-11-15] MEDS: DULOXETINE HCL 30 MG CAPSULE.DR GT SCH (21:12)
[2017-11-16] MEDS: IPRATROPIUM NEB FS 0.5 MG/2.5 ML AMPUL.NEB NEB SCH ×4 (00:59→19:49)
[2017-11-16] MEDS: ALBUTEROL HALF STRENGTH 1.25 MG/3 ML VIAL.NEB NEB SCH ×4 (00:59→19:49)
[2017-11-16] MEDS: OMEPRAZOLE 20 MG CAPSULE.DR GT SCH (05:38)
[2017-11-16] MEDS: LEVOTHYROXINE SODIUM 25 MCG TABLET GT SCH (05:38)
[2017-11-16 07:36] VITALS: BP 115/52
[2017-11-16] MEDS: MECLIZINE HCL 12.5 MG TABLET GT SCH ×2 (09:31→21:33)
[2017-11-16] MEDS: POLYETHYLENE GLYCOL 3350 17 GM POWD.PACK GT SCH (09:31)
[2017-11-16] MEDS: HYDROGEN PEROXIDE 480 ML BOTTLE TP SCH ×2 (09:31→21:33)
[2017-11-16] MEDS: Z GUARD REMEDY 4 OZ OINT TP SCH ×2 (09:31→21:33)
[2017-11-16] MEDS: FERROUS SULFATE - FOR SA ONLY 330 MG/7.5 ML UDC GT SCH (09:31)
[2017-11-16] MEDS: METOCLOPRAMIDE HCL 10 MG/10 ML UDC GT SCH ×3 (09:31→17:59)
[2017-11-16] MEDS: FIBERSOURCE HN 1,000 ML BOTTLE GT PRN (12:21)
[2017-11-16 20:54] VITALS: BP 132/86
[2017-11-16] MEDS: SENNOSIDES 8.6 MG TABLET GT SCH (21:33)
[2017-11-16] MEDS: DULOXETINE HCL 30 MG CAPSULE.DR GT SCH (21:33)
[2017-11-16] MEDS: CYANOCOBALAMIN 500 MCG TABLET GT SCH (21:33)
[2017-11-16] MEDS: ASCORBIC ACID 500 MG TABLET GT SCH (21:33)
[2017-11-16] MEDS: ACETAMINOPHEN 650 MG/20 ML UDC- FOR SA PATIENTS ONLY GT PRN (22:27)
[2017-11-17] MEDS: ALBUTEROL HALF STRENGTH 1.25 MG/3 ML VIAL.NEB NEB SCH ×3 (00:42→20:19)
[2017-11-17] MEDS: IPRATROPIUM NEB FS 0.5 MG/2.5 ML AMPUL.NEB NEB SCH ×3 (00:42→20:19)
[2017-11-17] MEDS: OMEPRAZOLE 20 MG CAPSULE.DR GT SCH (05:26)
[2017-11-17] MEDS: LEVOTHYROXINE SODIUM 25 MCG TABLET GT SCH (05:26)
[2017-11-17 07:51] VITALS: BP 135/84
[2017-11-17] MEDS: HYDROGEN PEROXIDE 480 ML BOTTLE TP SCH ×2 (09:31→21:15)
[2017-11-17] MEDS: FERROUS SULFATE - FOR SA ONLY 330 MG/7.5 ML UDC GT SCH (09:31)
[2017-11-17] MEDS: POLYETHYLENE GLYCOL 3350 17 GM POWD.PACK GT SCH (09:31)
[2017-11-17] MEDS: Z GUARD REMEDY 4 OZ OINT TP SCH ×2 (09:31→21:15)
[2017-11-17] MEDS: METOCLOPRAMIDE HCL 10 MG/10 ML UDC GT SCH ×3 (09:31→16:28)
[2017-11-17] MEDS: MECLIZINE HCL 12.5 MG TABLET GT SCH ×2 (09:32→21:15)
[2017-11-17] MEDS ORDERED: DIATR MEGLU/DIATRIZOATE SODIUM 30 ML BOTTLE (GASTROGRAPHIN) ONE (15:03)
[2017-11-17] MEDS: FIBERSOURCE HN 1,000 ML BOTTLE GT PRN (16:27)
[2017-11-17] MEDS: SIMETHICONE SUSP 40 MG/0.6 ML BOTTLE GT PRN (16:27)
[2017-11-17] MEDS: DULOXETINE HCL 30 MG CAPSULE.DR GT SCH (21:15)
[2017-11-17] MEDS: ASCORBIC ACID 500 MG TABLET GT SCH (21:15)
[2017-11-17] MEDS: SENNOSIDES 8.6 MG TABLET GT SCH (21:15)
[2017-11-17] MEDS: CYANOCOBALAMIN 500 MCG TABLET GT SCH (21:15)
[2017-11-17 22:29] VITALS: BP 131/52
[2017-11-18] MEDS: IPRATROPIUM NEB FS 0.5 MG/2.5 ML AMPUL.NEB NEB SCH ×4 (01:49→20:10)
[2017-11-18] MEDS: ALBUTEROL HALF STRENGTH 1.25 MG/3 ML VIAL.NEB NEB SCH ×4 (01:49→20:10)
[2017-11-18] MEDS: OMEPRAZOLE 20 MG CAPSULE.DR GT SCH (05:24)
[2017-11-18] MEDS: LEVOTHYROXINE SODIUM 25 MCG TABLET GT SCH (05:24)
[2017-11-18 06:11] VITALS: BP 127/76
[2017-11-18] MEDS: METOCLOPRAMIDE HCL 10 MG/10 ML UDC GT SCH ×3 (08:10→17:55)
[2017-11-18] MEDS: FERROUS SULFATE - FOR SA ONLY 330 MG/7.5 ML UDC GT SCH (08:10)
[2017-11-18] MEDS: MECLIZINE HCL 12.5 MG TABLET GT SCH ×2 (08:10→21:15)
[2017-11-18] MEDS: POLYETHYLENE GLYCOL 3350 17 GM POWD.PACK GT SCH (08:10)
[2017-11-18 08:13] VITALS: BP 132/79
[2017-11-18] MEDS: HYDROGEN PEROXIDE 480 ML BOTTLE TP SCH ×2 (09:00→21:15)
[2017-11-18] MEDS: Z GUARD REMEDY 4 OZ OINT TP SCH ×2 (09:00→21:15)
[2017-11-18] MEDS: FIBERSOURCE HN 1,000 ML BOTTLE GT PRN (10:34)
[2017-11-18 12:00] VITALS: BP 139/74
[2017-11-18] MEDS: CLONIDINE HCL 0.1 MG TABLET GT PRN ×2 (12:16→17:56)
[2017-11-18 18:00] VITALS: BP 122/70
[2017-11-18 19:39] VITALS: BP 135/72
[2017-11-18] MEDS: SENNOSIDES 8.6 MG TABLET GT SCH (21:15)
[2017-11-18] MEDS: ASCORBIC ACID 500 MG TABLET GT SCH (21:15)
[2017-11-18] MEDS: DULOXETINE HCL 30 MG CAPSULE.DR GT SCH (21:15)
[2017-11-18] MEDS: CYANOCOBALAMIN 500 MCG TABLET GT SCH (21:15)
[2017-11-18] MEDS: ZINC OXIDE 30 GM TUBE TP SCH (21:15)
[2017-11-19 00:12] VITALS: BP 132/89
[2017-11-19] MEDS: IPRATROPIUM NEB FS 0.5 MG/2.5 ML AMPUL.NEB NEB SCH ×4 (01:40→19:36)
[2017-11-19] MEDS: ALBUTEROL HALF STRENGTH 1.25 MG/3 ML VIAL.NEB NEB SCH ×4 (01:40→19:36)
[2017-11-19] MEDS: LEVOTHYROXINE SODIUM 25 MCG TABLET GT SCH (05:18)
[2017-11-19] MEDS: OMEPRAZOLE 20 MG CAPSULE.DR GT SCH (05:18)
[2017-11-19 06:21] VITALS: BP 112/61
[2017-11-19] MEDS: FIBERSOURCE HN 1,000 ML BOTTLE GT PRN (06:26)
[2017-11-19 07:58] VITALS: BP 119/43
[2017-11-19] MEDS: MECLIZINE HCL 12.5 MG TABLET GT SCH ×2 (09:07→20:17)
[2017-11-19] MEDS: FERROUS SULFATE - FOR SA ONLY 330 MG/7.5 ML UDC GT SCH (09:07)
[2017-11-19] MEDS: POLYETHYLENE GLYCOL 3350 17 GM POWD.PACK GT SCH (09:08)
[2017-11-19] MEDS: METOCLOPRAMIDE HCL 10 MG/10 ML UDC GT SCH ×3 (09:11→17:21)
[2017-11-19] MEDS: HYDROGEN PEROXIDE 480 ML BOTTLE TP SCH ×2 (10:30→20:19)
[2017-11-19] MEDS: ZINC OXIDE 30 GM TUBE TP SCH ×2 (10:30→20:19)
[2017-11-19] MEDS: Z GUARD REMEDY 4 OZ OINT TP SCH ×2 (10:30→20:19)
[2017-11-19 14:04] VITALS: BP 120/43
[2017-11-19 18:41] VITALS: BP 111/82
[2017-11-19] MEDS: CYANOCOBALAMIN 500 MCG TABLET GT SCH (20:17)
[2017-11-19] MEDS: SENNOSIDES 8.6 MG TABLET GT SCH (20:17)
[2017-11-19] MEDS: ASCORBIC ACID 500 MG TABLET GT SCH (20:19)
[2017-11-19] MEDS: DULOXETINE HCL 30 MG CAPSULE.DR GT SCH (22:05)
[2017-11-20 00:21] VITALS: BP 122/73
[2017-11-20] MEDS: FIBERSOURCE HN 1,000 ML BOTTLE GT PRN (01:54)
[2017-11-20] MEDS: ALBUTEROL HALF STRENGTH 1.25 MG/3 ML VIAL.NEB NEB SCH ×4 (02:28→19:39)
[2017-11-20] MEDS: IPRATROPIUM NEB FS 0.5 MG/2.5 ML AMPUL.NEB NEB SCH ×4 (02:28→19:39)
[2017-11-20] MEDS: OMEPRAZOLE 20 MG CAPSULE.DR GT SCH (05:21)
[2017-11-20] MEDS: LEVOTHYROXINE SODIUM 25 MCG TABLET GT SCH (05:21)
[2017-11-20 06:07] VITALS: BP 115/76
[2017-11-20] MEDS: FERROUS SULFATE - FOR SA ONLY 330 MG/7.5 ML UDC GT SCH (09:47)
[2017-11-20] MEDS: POLYETHYLENE GLYCOL 3350 17 GM POWD.PACK GT SCH (09:47)
[2017-11-20] MEDS: MECLIZINE HCL 12.5 MG TABLET GT SCH ×2 (09:47→20:16)
[2017-11-20] MEDS: Z GUARD REMEDY 4 OZ OINT TP SCH ×2 (09:47→20:18)
[2017-11-20] MEDS: ZINC OXIDE 30 GM TUBE TP SCH ×2 (09:47→20:18)
[2017-11-20] MEDS: METOCLOPRAMIDE HCL 10 MG/10 ML UDC GT SCH ×3 (09:47→17:52)
[2017-11-20] MEDS: HYDROGEN PEROXIDE 480 ML BOTTLE TP SCH ×2 (09:47→20:18)
[2017-11-20 14:45] VITALS: BP 115/76
[2017-11-20 15:34] VITALS: BP 88/56
[2017-11-20 19:03] VITALS: BP 135/77
[2017-11-20 19:54] VITALS: BP 114/84
[2017-11-20] MEDS: CYANOCOBALAMIN 500 MCG TABLET GT SCH (20:16)
[2017-11-20] MEDS: SENNOSIDES 8.6 MG TABLET GT SCH (20:17)
[2017-11-20] MEDS: ASCORBIC ACID 500 MG TABLET GT SCH (20:17)
[2017-11-20] MEDS: DULOXETINE HCL 30 MG CAPSULE.DR GT SCH (22:31)
[2017-11-21 00:22] VITALS: BP 127/81
[2017-11-21] MEDS: IPRATROPIUM NEB FS 0.5 MG/2.5 ML AMPUL.NEB NEB SCH ×4 (01:12→13:30)
[2017-11-21] MEDS: ALBUTEROL HALF STRENGTH 1.25 MG/3 ML VIAL.NEB NEB SCH ×4 (01:12→13:30)
[2017-11-21] MEDS: FIBERSOURCE HN 1,000 ML BOTTLE GT PRN ×2 (01:34→18:28)
[2017-11-21] MEDS: LEVOTHYROXINE SODIUM 25 MCG TABLET GT SCH (05:15)
[2017-11-21] MEDS: OMEPRAZOLE 20 MG CAPSULE.DR GT SCH (05:15)
[2017-11-21 06:17] VITALS: BP 133/79
[2017-11-21 08:08] VITALS: BP 122/92
[2017-11-21] MEDS: METOCLOPRAMIDE HCL 10 MG/10 ML UDC GT SCH ×3 (09:46→17:35)
[2017-11-21] MEDS: HYDROGEN PEROXIDE 480 ML BOTTLE TP SCH ×2 (09:46→20:27)
[2017-11-21] MEDS: MECLIZINE HCL 12.5 MG TABLET GT SCH ×2 (09:46→20:27)
[2017-11-21] MEDS: FERROUS SULFATE - FOR SA ONLY 330 MG/7.5 ML UDC GT SCH (09:46)
[2017-11-21] MEDS: POLYETHYLENE GLYCOL 3350 17 GM POWD.PACK GT SCH (09:46)
[2017-11-21] MEDS: Z GUARD REMEDY 4 OZ OINT TP SCH ×2 (09:46→20:28)
[2017-11-21] MEDS: ZINC OXIDE 30 GM TUBE TP SCH ×2 (09:46→20:28)
[2017-11-21 15:28] VITALS: BP 122/92
[2017-11-21 18:14] VITALS: BP 122/75
[2017-11-21 20:19] VITALS: BP 124/87
[2017-11-21] MEDS: SENNOSIDES 8.6 MG TABLET GT SCH (20:25)
[2017-11-21] MEDS: CYANOCOBALAMIN 500 MCG TABLET GT SCH (20:25)
[2017-11-21] MEDS: ASCORBIC ACID 500 MG TABLET GT SCH (20:27)
[2017-11-21] MEDS: DULOXETINE HCL 30 MG CAPSULE.DR GT SCH (21:53)
[2017-11-22 00:07] VITALS: BP 125/83
[2017-11-22] MEDS: IPRATROPIUM NEB FS 0.5 MG/2.5 ML AMPUL.NEB NEB SCH ×4 (01:10→19:56)
[2017-11-22] MEDS: ALBUTEROL HALF STRENGTH 1.25 MG/3 ML VIAL.NEB NEB SCH ×4 (01:10→19:56)
[2017-11-22] MEDS: OMEPRAZOLE 20 MG CAPSULE.DR GT SCH (05:37)
[2017-11-22] MEDS: LEVOTHYROXINE SODIUM 25 MCG TABLET GT SCH (05:37)
[2017-11-22 06:21] VITALS: BP 134/79
[2017-11-22 07:55] VITALS: BP 141/63
[2017-11-22] MEDS: MECLIZINE HCL 12.5 MG TABLET GT SCH ×2 (09:00→21:09)
[2017-11-22] MEDS: HYDROGEN PEROXIDE 480 ML BOTTLE TP SCH ×2 (09:00→21:09)
[2017-11-22] MEDS: FERROUS SULFATE - FOR SA ONLY 330 MG/7.5 ML UDC GT SCH (09:00)
[2017-11-22] MEDS: POLYETHYLENE GLYCOL 3350 17 GM POWD.PACK GT SCH (09:00)
[2017-11-22] MEDS: ZINC OXIDE 30 GM TUBE TP SCH ×2 (09:00→21:10)
[2017-11-22] MEDS: METOCLOPRAMIDE HCL 10 MG/10 ML UDC GT SCH ×3 (09:00→17:27)
[2017-11-22] MEDS: Z GUARD REMEDY 4 OZ OINT TP SCH ×2 (09:00→21:10)
[2017-11-22] MEDS: FIBERSOURCE HN 1,000 ML BOTTLE GT PRN (13:01)
[2017-11-22 14:52] VITALS: BP 118/80
[2017-11-22 18:24] VITALS: BP 115/75
[2017-11-22 20:37] VITALS: BP 115/67
[2017-11-22] MEDS: SENNOSIDES 8.6 MG TABLET GT SCH (21:09)
[2017-11-22] MEDS: NEOMY SULF/BACITRAC ZN/POLY 15 GM TUBE TP SCH (21:09)
[2017-11-22] MEDS: ASCORBIC ACID 500 MG TABLET GT SCH (21:09)
[2017-11-22] MEDS: CYANOCOBALAMIN 500 MCG TABLET GT SCH (21:09)
[2017-11-22] MEDS: DULOXETINE HCL 30 MG CAPSULE.DR GT SCH (21:10)
[2017-11-22] MEDS: TRAMADOL HCL 50 MG TABLET GT PRN (23:53)
[2017-11-23 00:06] VITALS: BP 121/77
[2017-11-23] MEDS: ALBUTEROL HALF STRENGTH 1.25 MG/3 ML VIAL.NEB NEB SCH ×4 (01:21→19:44)
[2017-11-23] MEDS: IPRATROPIUM NEB FS 0.5 MG/2.5 ML AMPUL.NEB NEB SCH ×4 (01:21→19:44)
[2017-11-23] MEDS: OMEPRAZOLE 20 MG CAPSULE.DR GT SCH (05:18)
[2017-11-23] MEDS: FIBERSOURCE HN 1,000 ML BOTTLE GT PRN ×2 (05:18→23:48)
[2017-11-23] MEDS: LEVOTHYROXINE SODIUM 25 MCG TABLET GT SCH (05:18)
[2017-11-23 06:03] VITALS: BP 126/75
[2017-11-23 07:45] VITALS: BP 133/81
[2017-11-23] MEDS: HYDROGEN PEROXIDE 480 ML BOTTLE TP SCH ×2 (09:00→21:32)
[2017-11-23] MEDS: METOCLOPRAMIDE HCL 10 MG/10 ML UDC GT SCH ×3 (09:00→17:49)
[2017-11-23] MEDS: Z GUARD REMEDY 4 OZ OINT TP SCH ×2 (09:00→21:34)
[2017-11-23] MEDS: NEOMY SULF/BACITRAC ZN/POLY 15 GM TUBE TP SCH ×2 (09:00→21:34)
[2017-11-23] MEDS: MECLIZINE HCL 12.5 MG TABLET GT SCH ×2 (09:00→21:32)
[2017-11-23] MEDS: POLYETHYLENE GLYCOL 3350 17 GM POWD.PACK GT SCH (09:00)
[2017-11-23] MEDS: FERROUS SULFATE - FOR SA ONLY 330 MG/7.5 ML UDC GT SCH (09:00)
[2017-11-23] MEDS: ZINC OXIDE 30 GM TUBE TP SCH ×2 (09:00→21:34)
[2017-11-23 18:59] VITALS: BP 128/70
[2017-11-23 20:00] VITALS: BP 132/73
[2017-11-23] MEDS: CYANOCOBALAMIN 500 MCG TABLET GT SCH (21:32)
[2017-11-23] MEDS: SENNOSIDES 8.6 MG TABLET GT SCH (21:32)
[2017-11-23] MEDS: ASCORBIC ACID 500 MG TABLET GT SCH (21:32)
[2017-11-23] MEDS: DULOXETINE HCL 30 MG CAPSULE.DR GT SCH (21:35)
[2017-11-24] VITALS: BP 125/60
[2017-11-24] MEDS: ALBUTEROL HALF STRENGTH 1.25 MG/3 ML VIAL.NEB NEB SCH ×4 (00:46→19:30)
[2017-11-24] MEDS: IPRATROPIUM NEB FS 0.5 MG/2.5 ML AMPUL.NEB NEB SCH ×4 (00:46→19:30)
[2017-11-24] MEDS: LEVOTHYROXINE SODIUM 25 MCG TABLET GT SCH (05:43)
[2017-11-24] MEDS: OMEPRAZOLE 20 MG CAPSULE.DR GT SCH (05:43)
[2017-11-24 06:00] VITALS: BP 120/60
[2017-11-24 07:35] VITALS: BP 133/75
[2017-11-24] MEDS: FERROUS SULFATE - FOR SA ONLY 330 MG/7.5 ML UDC GT SCH (08:17)
[2017-11-24] MEDS: POLYETHYLENE GLYCOL 3350 17 GM POWD.PACK GT SCH (08:17)
[2017-11-24] MEDS: METOCLOPRAMIDE HCL 10 MG/10 ML UDC GT SCH ×3 (08:17→17:15)
[2017-11-24] MEDS: MECLIZINE HCL 12.5 MG TABLET GT SCH ×2 (08:17→21:45)
[2017-11-24] MEDS: HYDROGEN PEROXIDE 480 ML BOTTLE TP SCH ×2 (09:00→21:45)
[2017-11-24] MEDS: NEOMY SULF/BACITRAC ZN/POLY 15 GM TUBE TP SCH ×2 (09:00→21:45)
[2017-11-24] MEDS: Z GUARD REMEDY 4 OZ OINT TP SCH ×2 (09:00→21:45)
[2017-11-24] MEDS: ZINC OXIDE 30 GM TUBE TP SCH ×2 (09:00→21:45)
[2017-11-24 12:00] VITALS: BP 130/68
[2017-11-24 18:51] VITALS: BP 123/86
[2017-11-24] MEDS: ACETAMINOPHEN 650 MG/20 ML UDC- FOR SA PATIENTS ONLY GT PRN (18:56)
[2017-11-24 19:20] LABS: APPEARANCE,URINE CLEAR (CLEAR); BILIRUBIN,URINE NEGATIVE (NEGATIVE); BLOOD, URINE 2+ Ery/uL (NEGATIVE); COLOR,URINE YELLOW (YELLOW); KETONES,URINE NEGATIVE (NEGATIVE); LEUKOCYTE ESTERASE ,URINE TRACE (NEGATIVE); NITRITE, URINE POSITIVE (NEGATIVE); PH,URINE 8.5 (5.0-8.0); PROTEIN,URINE NEGATIVE (NEGATIVE); UGLUCOSE NEGATIVE (NEGATIVE); UROBILINOGEN,URINE 0.2 EU/dL (0.2)
[2017-11-24 19:27] LABS: BACTERIA,URINE 1+ /HPF (None Seen); RBC,URINE 21-50 /HPF (0-2); SQUAMOUS EPITHELIAL CELL,UR Few /HPF (None Seen); URINE AMORPHOUS PHOSPHATES Many /HPF (None Seen); WBC,URINE 0-2 /HPF (0-3)
[2017-11-24] MEDS: VANCOMYCIN 0.5 GM in IV D5W 250 ML IV SCH (20:47)
[2017-11-24] MEDS: PIPERACILLIN /TAZOBACTAM 3.375 G in IV D5W 50 ML IV SCH (20:47)
[2017-11-24] MEDS: CYANOCOBALAMIN 500 MCG TABLET GT SCH (21:45)
[2017-11-24] MEDS: DULOXETINE HCL 30 MG CAPSULE.DR GT SCH (21:45)
[2017-11-24] MEDS: ASCORBIC ACID 500 MG TABLET GT SCH (21:45)
[2017-11-24] MEDS: SENNOSIDES 8.6 MG TABLET GT SCH (21:45)
[2017-11-24 23:26] VITALS: BP 144/73
[2017-11-24] MEDS: FIBERSOURCE HN 1,000 ML BOTTLE GT PRN (23:43)
[2017-11-25 00:04] VITALS: BP 105/68
[2017-11-25] MEDS: ALBUTEROL HALF STRENGTH 1.25 MG/3 ML VIAL.NEB NEB SCH ×4 (02:20→19:36)
[2017-11-25] MEDS: IPRATROPIUM NEB FS 0.5 MG/2.5 ML AMPUL.NEB NEB SCH ×4 (02:20→19:36)
[2017-11-25] MEDS: PIPERACILLIN /TAZOBACTAM 3.375 G in IV D5W 50 ML IV SCH ×3 (04:43→20:30)
[2017-11-25] MEDS: OMEPRAZOLE 20 MG CAPSULE.DR GT SCH (05:26)
[2017-11-25] MEDS: LEVOTHYROXINE SODIUM 25 MCG TABLET GT SCH (05:26)
[2017-11-25 06:16] VITALS: BP 131/64
[2017-11-25 07:36] VITALS: BP 111/71
[2017-11-25] MEDS: VANCOMYCIN 0.5 GM in IV D5W 250 ML IV SCH (08:00)
[2017-11-25 08:14] LABS: BASOPHILS # (AUTO) 0.1 /CMM (0.0-0.2); BASOPHILS % (AUTO) 0.9 % (0.0-2.0); EOSINOPHILS # (AUTO) 0.3 /CMM (0.0-0.7); EOSINOPHILS % (AUTO) 2.3 % (0.0-6.0); HEMATOCRIT 30 % (33-45); HEMOGLOBIN 10.1 g/dL (11.5-14.8); LYMPHOCYTES # (AUTO) 1.7 /CMM (0.8-4.8); LYMPHOCYTES % (AUTO) 13.4 % (20.0-44.0); MEAN CORPUSCULAR HEMOGLOBIN 30 PG (26.0-33.0); MEAN CORPUSCULAR HGB CONC 34 g/dl (31.0-36.0); MEAN CORPUSCULAR VOLUME 90 fL (82-100); MONOCYTES # (AUTO) 0.7 /CMM (0.1-1.30); MONOCYTES % (AUTO) 5.9 % (2.0-12.0); NEUTROPHILS # (AUTO) 9.7 /CMM (1.8-8.9); NEUTROPHILS % (AUTO) 77.5 % (43.0-81.0); PLATELET COUNT (AUTO) 302 /CMM (150-450); RDW COEFFICIENT OF VARIATION 15.5 (11.5-15.0); RED BLOOD CELL COUNT(AUTO) 3.35 MIL/uL (4.0-5.2); WHITE BLOOD COUNT (AUTO) 12.5 K/uL (4.3-11.0)
[2017-11-25 08:21] LABS: CALCIUM, SERUM 9.2 mg/dL (8.5-10.1); CARBON DIOXIDE 29 mmol/L (21-32); CHLORIDE 107 mmol/L (98-107); CREATININE 0.6 mg/dL (0.6-1.3); GLUCOSE 126 mg/dL (74-106); SODIUM SERUM 143 mmol/L (136-145); UREA NITROGEN, BLOOD 18 mg/dL (7-18)
[2017-11-25] MEDS: NEOMY SULF/BACITRAC ZN/POLY 15 GM TUBE TP SCH ×2 (09:00→21:18)
[2017-11-25] MEDS: Z GUARD REMEDY 4 OZ OINT TP SCH ×2 (09:00→21:18)
[2017-11-25] MEDS: ZINC OXIDE 30 GM TUBE TP SCH ×2 (09:00→21:18)
[2017-11-25] MEDS: HYDROGEN PEROXIDE 480 ML BOTTLE TP SCH ×2 (09:00→21:17)
[2017-11-25] MEDS: METOCLOPRAMIDE HCL 10 MG/10 ML UDC GT SCH ×3 (09:48→17:29)
[2017-11-25] MEDS: FERROUS SULFATE - FOR SA ONLY 330 MG/7.5 ML UDC GT SCH (09:48)
[2017-11-25] MEDS: POLYETHYLENE GLYCOL 3350 17 GM POWD.PACK GT SCH (09:48)
[2017-11-25] MEDS: MECLIZINE HCL 12.5 MG TABLET GT SCH ×2 (09:48→21:17)
[2017-11-25 12:00] VITALS: BP 128/73
[2017-11-25] MEDS: ACETAMINOPHEN W/ CODEINE#3 1 EA TABLET GT PRN (16:14)
[2017-11-25 18:48] VITALS: BP 128/73
[2017-11-25] MEDS: ASCORBIC ACID 500 MG TABLET GT SCH (21:17)
[2017-11-25] MEDS: SENNOSIDES 8.6 MG TABLET GT SCH (21:17)
[2017-11-25] MEDS: CYANOCOBALAMIN 500 MCG TABLET GT SCH (21:17)
[2017-11-25] MEDS: DULOXETINE HCL 30 MG CAPSULE.DR GT SCH (21:18)
[2017-11-25] MEDS: FIBERSOURCE HN 1,000 ML BOTTLE GT PRN (21:31)
[2017-11-25 21:32] VITALS: BP 120/80
[2017-11-26 00:24] VITALS: BP 113/82
[2017-11-26] MEDS: ALBUTEROL HALF STRENGTH 1.25 MG/3 ML VIAL.NEB NEB SCH ×4 (01:45→20:52)
[2017-11-26] MEDS: IPRATROPIUM NEB FS 0.5 MG/2.5 ML AMPUL.NEB NEB SCH ×4 (01:45→20:52)
[2017-11-26] MEDS: PIPERACILLIN /TAZOBACTAM 3.375 G in IV D5W 50 ML IV SCH ×3 (04:30→20:54)
[2017-11-26] MEDS: OMEPRAZOLE 20 MG CAPSULE.DR GT SCH (05:55)
[2017-11-26] MEDS: LEVOTHYROXINE SODIUM 25 MCG TABLET GT SCH (05:55)
[2017-11-26 06:10] VITALS: BP 131/74
[2017-11-26 07:29] VITALS: BP 132/88
[2017-11-26 08:01] LABS: CALCIUM, SERUM 8.9 mg/dL (8.5-10.1); CARBON DIOXIDE 26 mmol/L (21-32); CHLORIDE 108 mmol/L (98-107); CREATININE 0.5 mg/dL (0.6-1.3); GLUCOSE 99 mg/dL (74-106); POTASSIUM 4.7 mmol/L (3.5-5.1); SODIUM SERUM 143 mmol/L (136-145); UREA NITROGEN, BLOOD 16 mg/dL (7-18)
[2017-11-26] MEDS: POLYETHYLENE GLYCOL 3350 17 GM POWD.PACK GT SCH (09:46)
[2017-11-26] MEDS: METOCLOPRAMIDE HCL 10 MG/10 ML UDC GT SCH ×3 (09:46→17:31)
[2017-11-26] MEDS: MECLIZINE HCL 12.5 MG TABLET GT SCH ×2 (09:46→20:26)
[2017-11-26] MEDS: FERROUS SULFATE - FOR SA ONLY 330 MG/7.5 ML UDC GT SCH (09:46)
[2017-11-26] MEDS: HYDROGEN PEROXIDE 480 ML BOTTLE TP SCH ×2 (09:47→20:29)
[2017-11-26] MEDS: NEOMY SULF/BACITRAC ZN/POLY 15 GM TUBE TP SCH ×2 (09:47→20:29)
[2017-11-26] MEDS: Z GUARD REMEDY 4 OZ OINT TP SCH ×2 (09:47→20:29)
[2017-11-26] MEDS: ZINC OXIDE 30 GM TUBE TP SCH ×2 (09:47→20:29)
[2017-11-26 12:00] VITALS: BP 132/74
[2017-11-26] MEDS: FIBERSOURCE HN 1,000 ML BOTTLE GT PRN ×2 (17:31→18:06)
[2017-11-26 18:47] VITALS: BP 106/58
[2017-11-26 19:54] VITALS: BP 134/73
[2017-11-26] MEDS: CYANOCOBALAMIN 500 MCG TABLET GT SCH (20:25)
[2017-11-26] MEDS: SENNOSIDES 8.6 MG TABLET GT SCH (20:28)
[2017-11-26] MEDS: ASCORBIC ACID 500 MG TABLET GT SCH (20:29)
[2017-11-26] MEDS: DULOXETINE HCL 30 MG CAPSULE.DR GT SCH (22:04)
[2017-11-27 00:36] VITALS: BP 115/76
[2017-11-27] MEDS: ALBUTEROL HALF STRENGTH 1.25 MG/3 ML VIAL.NEB NEB SCH ×4 (02:04→20:30)
[2017-11-27] MEDS: IPRATROPIUM NEB FS 0.5 MG/2.5 ML AMPUL.NEB NEB SCH ×4 (02:04→20:29)
[2017-11-27] MEDS: PIPERACILLIN /TAZOBACTAM 3.375 G in IV D5W 50 ML IV SCH ×3 (04:30→20:30)
[2017-11-27] MEDS: OMEPRAZOLE 20 MG CAPSULE.DR GT SCH (05:31)
[2017-11-27] MEDS: LEVOTHYROXINE SODIUM 25 MCG TABLET GT SCH (05:32)
[2017-11-27 06:11] VITALS: BP 126/65
[2017-11-27 07:39] LABS: CALCIUM, SERUM 8.7 mg/dL (8.5-10.1); CARBON DIOXIDE 29 mmol/L (21-32); CHLORIDE 106 mmol/L (98-107); CREATININE 0.4 mg/dL (0.6-1.3); GLUCOSE 95 mg/dL (74-106); POTASSIUM 4.3 mmol/L (3.5-5.1); SODIUM SERUM 142 mmol/L (136-145); UREA NITROGEN, BLOOD 19 mg/dL (7-18)
[2017-11-27 07:59] VITALS: BP 129/89
[2017-11-27 08:00] VITALS: BP 129/89
[2017-11-27] MEDS: Z GUARD REMEDY 4 OZ OINT TP SCH ×2 (09:00→20:18)
[2017-11-27] MEDS: NEOMY SULF/BACITRAC ZN/POLY 15 GM TUBE TP SCH ×2 (09:00→20:18)
[2017-11-27] MEDS: ZINC OXIDE 30 GM TUBE TP SCH ×2 (09:14→20:18)
[2017-11-27] MEDS: FERROUS SULFATE - FOR SA ONLY 330 MG/7.5 ML UDC GT SCH (09:14)
[2017-11-27] MEDS: POLYETHYLENE GLYCOL 3350 17 GM POWD.PACK GT SCH (09:14)
[2017-11-27] MEDS: HYDROGEN PEROXIDE 480 ML BOTTLE TP SCH ×2 (09:14→20:18)
[2017-11-27] MEDS: METOCLOPRAMIDE HCL 10 MG/10 ML UDC GT SCH ×3 (09:14→16:18)
[2017-11-27] MEDS: MECLIZINE HCL 12.5 MG TABLET GT SCH ×2 (09:14→20:17)
[2017-11-27] MEDS: CLONIDINE HCL 0.1 MG TABLET GT PRN ×2 (11:28→16:18)
[2017-11-27 12:00] VITALS: BP 121/73
[2017-11-27] MEDS: FIBERSOURCE HN 1,000 ML BOTTLE GT PRN (16:18)
[2017-11-27 18:30] VITALS: BP 92/67
[2017-11-27] MEDS: SENNOSIDES 8.6 MG TABLET GT SCH (20:15)
[2017-11-27] MEDS: CYANOCOBALAMIN 500 MCG TABLET GT SCH (20:15)
[2017-11-27] MEDS: ASCORBIC ACID 500 MG TABLET GT SCH (20:18)
[2017-11-27] MEDS: DULOXETINE HCL 30 MG CAPSULE.DR GT SCH (21:40)
[2017-11-28 00:17] VITALS: BP 111/74
[2017-11-28] MEDS: ALBUTEROL HALF STRENGTH 1.25 MG/3 ML VIAL.NEB NEB SCH ×4 (01:36→20:18)
[2017-11-28] MEDS: IPRATROPIUM NEB FS 0.5 MG/2.5 ML AMPUL.NEB NEB SCH ×4 (01:36→20:18)
[2017-11-28] MEDS: PIPERACILLIN /TAZOBACTAM 3.375 G in IV D5W 50 ML IV SCH ×3 (04:30→20:20)
[2017-11-28 06:06] VITALS: BP 125/79
[2017-11-28] MEDS: LEVOTHYROXINE SODIUM 25 MCG TABLET GT SCH (06:08)
[2017-11-28] MEDS: OMEPRAZOLE 20 MG CAPSULE.DR GT SCH (06:08)
[2017-11-28 07:09] LABS: CALCIUM, SERUM 8.7 mg/dL (8.5-10.1); CARBON DIOXIDE 27 mmol/L (21-32); CHLORIDE 104 mmol/L (98-107); CREATININE 0.4 mg/dL (0.6-1.3); GLUCOSE 114 mg/dL (74-106); POTASSIUM 4.3 mmol/L (3.5-5.1); SODIUM SERUM 138 mmol/L (136-145); UREA NITROGEN, BLOOD 16 mg/dL (7-18)
[2017-11-28 08:06] VITALS: BP 136/67
[2017-11-28] MEDS: FERROUS SULFATE - FOR SA ONLY 330 MG/7.5 ML UDC GT SCH (09:00)
[2017-11-28] MEDS: METOCLOPRAMIDE HCL 10 MG/10 ML UDC GT SCH ×3 (09:00→16:39)
[2017-11-28] MEDS: HYDROGEN PEROXIDE 480 ML BOTTLE TP SCH ×2 (09:00→20:24)
[2017-11-28] MEDS: Z GUARD REMEDY 4 OZ OINT TP SCH ×2 (09:00→20:25)
[2017-11-28] MEDS: POLYETHYLENE GLYCOL 3350 17 GM POWD.PACK GT SCH (09:00)
[2017-11-28] MEDS: ZINC OXIDE 30 GM TUBE TP SCH ×2 (09:00→20:25)
[2017-11-28] MEDS: NEOMY SULF/BACITRAC ZN/POLY 15 GM TUBE TP SCH ×2 (09:00→20:24)
[2017-11-28] MEDS: MECLIZINE HCL 12.5 MG TABLET GT SCH ×2 (09:00→20:24)
[2017-11-28 12:00] VITALS: BP 131/66
[2017-11-28] MEDS: FIBERSOURCE HN 1,000 ML BOTTLE GT PRN (16:40)
[2017-11-28 18:39] VITALS: BP 110/89
[2017-11-28 19:42] VITALS: BP 133/71
[2017-11-28] MEDS: CYANOCOBALAMIN 500 MCG TABLET GT SCH (20:23)
[2017-11-28] MEDS: ASCORBIC ACID 500 MG TABLET GT SCH (20:24)
[2017-11-28] MEDS: SENNOSIDES 8.6 MG TABLET GT SCH (20:24)
[2017-11-28] MEDS: DULOXETINE HCL 30 MG CAPSULE.DR GT SCH (22:57)
[2017-11-29 00:06] VITALS: BP 122/70
[2017-11-29] MEDS: IPRATROPIUM NEB FS 0.5 MG/2.5 ML AMPUL.NEB NEB SCH ×4 (01:45→19:37)
[2017-11-29] MEDS: ALBUTEROL HALF STRENGTH 1.25 MG/3 ML VIAL.NEB NEB SCH ×4 (01:45→19:37)
[2017-11-29] MEDS: PIPERACILLIN /TAZOBACTAM 3.375 G in IV D5W 50 ML IV SCH ×3 (04:30→20:53)
[2017-11-29] MEDS: LEVOTHYROXINE SODIUM 25 MCG TABLET GT SCH (05:09)
[2017-11-29] MEDS: OMEPRAZOLE 20 MG CAPSULE.DR GT SCH (05:09)
[2017-11-29 06:19] VITALS: BP 130/81
[2017-11-29 07:46] VITALS: BP 122/65
[2017-11-29 08:10] LABS: CALCIUM, SERUM 8.5 mg/dL (8.5-10.1); CARBON DIOXIDE 29 mmol/L (21-32); CHLORIDE 105 mmol/L (98-107); CREATININE 0.4 mg/dL (0.6-1.3); GLUCOSE 118 mg/dL (74-106); POTASSIUM 4.3 mmol/L (3.5-5.1); SODIUM SERUM 140 mmol/L (136-145); UREA NITROGEN, BLOOD 16 mg/dL (7-18)
[2017-11-29] MEDS: HYDROGEN PEROXIDE 480 ML BOTTLE TP SCH ×2 (09:00→21:08)
[2017-11-29] MEDS: Z GUARD REMEDY 4 OZ OINT TP SCH ×2 (09:00→21:08)
[2017-11-29] MEDS: NEOMY SULF/BACITRAC ZN/POLY 15 GM TUBE TP SCH ×2 (09:00→21:08)
[2017-11-29] MEDS: FERROUS SULFATE - FOR SA ONLY 330 MG/7.5 ML UDC GT SCH (09:00)
[2017-11-29] MEDS: POLYETHYLENE GLYCOL 3350 17 GM POWD.PACK GT SCH (09:00)
[2017-11-29] MEDS: MECLIZINE HCL 12.5 MG TABLET GT SCH ×2 (09:00→21:08)
[2017-11-29] MEDS: ZINC OXIDE 30 GM TUBE TP SCH ×2 (09:00→21:08)
[2017-11-29] MEDS: METOCLOPRAMIDE HCL 10 MG/10 ML UDC GT SCH ×3 (09:00→17:00)
[2017-11-29] MEDS: FIBERSOURCE HN 1,000 ML BOTTLE GT PRN (09:14)
[2017-11-29 12:00] VITALS: BP 116/75
[2017-11-29] MEDS: CLONIDINE HCL 0.1 MG TABLET GT PRN (12:19)
[2017-11-29 18:00] VITALS: BP 118/74
[2017-11-29 20:00] VITALS: BP 137/74
[2017-11-29] MEDS: DULOXETINE HCL 30 MG CAPSULE.DR GT SCH (21:08)
[2017-11-29] MEDS: SENNOSIDES 8.6 MG TABLET GT SCH (21:08)
[2017-11-29] MEDS: CYANOCOBALAMIN 500 MCG TABLET GT SCH (21:08)
[2017-11-29] MEDS: ASCORBIC ACID 500 MG TABLET GT SCH (21:08)
[2017-11-30 00:20] VITALS: BP 128/74
[2017-11-30] MEDS: ALBUTEROL HALF STRENGTH 1.25 MG/3 ML VIAL.NEB NEB SCH ×4 (01:53→19:56)
[2017-11-30] MEDS: IPRATROPIUM NEB FS 0.5 MG/2.5 ML AMPUL.NEB NEB SCH ×4 (01:53→19:56)
[2017-11-30] MEDS: PIPERACILLIN /TAZOBACTAM 3.375 G in IV D5W 50 ML IV SCH ×3 (04:30→20:30)
[2017-11-30] MEDS: OMEPRAZOLE 20 MG CAPSULE.DR GT SCH (05:15)
[2017-11-30] MEDS: LEVOTHYROXINE SODIUM 25 MCG TABLET GT SCH (05:15)
[2017-11-30] MEDS: FIBERSOURCE HN 1,000 ML BOTTLE GT PRN (05:53)
[2017-11-30 06:27] VITALS: BP 108/61
[2017-11-30 08:00] VITALS: BP 115/56
[2017-11-30 08:08] LABS: CALCIUM, SERUM 8.6 mg/dL (8.5-10.1); CARBON DIOXIDE 31 mmol/L (21-32); CHLORIDE 105 mmol/L (98-107); CREATININE 0.4 mg/dL (0.6-1.3); GLUCOSE 106 mg/dL (74-106); POTASSIUM 4.1 mmol/L (3.5-5.1); SODIUM SERUM 139 mmol/L (136-145); UREA NITROGEN, BLOOD 13 mg/dL (7-18)
[2017-11-30] MEDS: POLYETHYLENE GLYCOL 3350 17 GM POWD.PACK GT SCH (08:36)
[2017-11-30] MEDS: METOCLOPRAMIDE HCL 10 MG/10 ML UDC GT SCH ×3 (08:36→16:47)
[2017-11-30] MEDS: FERROUS SULFATE - FOR SA ONLY 330 MG/7.5 ML UDC GT SCH (08:36)
[2017-11-30] MEDS: MECLIZINE HCL 12.5 MG TABLET GT SCH ×2 (08:36→21:24)
[2017-11-30] MEDS: ZINC OXIDE 30 GM TUBE TP SCH ×2 (09:00→21:25)
[2017-11-30] MEDS: HYDROGEN PEROXIDE 480 ML BOTTLE TP SCH ×2 (09:00→21:25)
[2017-11-30] MEDS: Z GUARD REMEDY 4 OZ OINT TP SCH ×2 (09:00→21:25)
[2017-11-30 12:00] VITALS: BP 116/70
[2017-11-30 18:29] VITALS: BP 109/58
[2017-11-30 20:00] VITALS: BP 107/76
[2017-11-30] MEDS: CYANOCOBALAMIN 500 MCG TABLET GT SCH (21:24)
[2017-11-30] MEDS: SENNOSIDES 8.6 MG TABLET GT SCH (21:24)
[2017-11-30] MEDS: ASCORBIC ACID 500 MG TABLET GT SCH (21:24)
[2017-11-30] MEDS: DULOXETINE HCL 30 MG CAPSULE.DR GT SCH (21:25)
[2017-12-01] VITALS (7 sets, daily range): BP systolic 110–132; BP diastolic 52–75
[2017-12-01] MEDS: IPRATROPIUM NEB FS 0.5 MG/2.5 ML AMPUL.NEB NEB SCH ×3 (00:43→13:34)
[2017-12-01] MEDS: ALBUTEROL HALF STRENGTH 1.25 MG/3 ML VIAL.NEB NEB SCH ×3 (00:43→13:34)
[2017-12-01] MEDS: PIPERACILLIN /TAZOBACTAM 3.375 G in IV D5W 50 ML IV SCH ×3 (04:32→21:04)
[2017-12-01] MEDS: OMEPRAZOLE 20 MG CAPSULE.DR GT SCH (05:21)
[2017-12-01] MEDS: LEVOTHYROXINE SODIUM 25 MCG TABLET GT SCH (05:21)
[2017-12-01] MEDS: FIBERSOURCE HN 1,000 ML BOTTLE GT PRN (05:30)
[2017-12-01] MEDS: MECLIZINE HCL 12.5 MG TABLET GT SCH ×2 (09:22→21:42)
[2017-12-01] MEDS: METOCLOPRAMIDE HCL 10 MG/10 ML UDC GT SCH ×3 (09:23→17:37)
[2017-12-01] MEDS: POLYETHYLENE GLYCOL 3350 17 GM POWD.PACK GT SCH (09:23)
[2017-12-01] MEDS: FERROUS SULFATE - FOR SA ONLY 330 MG/7.5 ML UDC GT SCH (09:23)
[2017-12-01] MEDS: Z GUARD REMEDY 4 OZ OINT TP SCH ×2 (09:24→21:42)
[2017-12-01] MEDS: HYDROGEN PEROXIDE 480 ML BOTTLE TP SCH ×2 (11:00→21:42)
[2017-12-01] MEDS: ZINC OXIDE 30 GM TUBE TP SCH ×2 (11:00→21:42)
[2017-12-01] MEDS: ASCORBIC ACID 500 MG TABLET GT SCH (21:42)
[2017-12-01] MEDS: CYANOCOBALAMIN 500 MCG TABLET GT SCH (21:42)
[2017-12-01] MEDS: SENNOSIDES 8.6 MG TABLET GT SCH (21:42)
[2017-12-01] MEDS: DULOXETINE HCL 30 MG CAPSULE.DR GT SCH (21:43)
[2017-12-02] VITALS (7 sets, daily range): BP systolic 115–146; BP diastolic 57–82
[2017-12-02] MEDS: PIPERACILLIN /TAZOBACTAM 3.375 G in IV D5W 50 ML IV SCH ×2 (04:32→13:00)
[2017-12-02] MEDS: FIBERSOURCE HN 1,000 ML BOTTLE GT PRN (04:37)
[2017-12-02] MEDS: LEVOTHYROXINE SODIUM 25 MCG TABLET GT SCH (06:00)
[2017-12-02] MEDS: OMEPRAZOLE 20 MG CAPSULE.DR GT SCH (06:00)
[2017-12-02] MEDS: ALBUTEROL HALF STRENGTH 1.25 MG/3 ML VIAL.NEB NEB SCH ×3 (08:27→20:03)
[2017-12-02] MEDS: IPRATROPIUM NEB FS 0.5 MG/2.5 ML AMPUL.NEB NEB SCH ×3 (08:27→20:03)
[2017-12-02] MEDS: MECLIZINE HCL 12.5 MG TABLET GT SCH ×2 (08:32→21:36)
[2017-12-02] MEDS: POLYETHYLENE GLYCOL 3350 17 GM POWD.PACK GT SCH (08:34)
[2017-12-02] MEDS: FERROUS SULFATE - FOR SA ONLY 330 MG/7.5 ML UDC GT SCH (08:34)
[2017-12-02] MEDS: METOCLOPRAMIDE HCL 10 MG/10 ML UDC GT SCH ×3 (08:34→17:52)
[2017-12-02] MEDS: HYDROGEN PEROXIDE 480 ML BOTTLE TP SCH ×2 (09:00→21:37)
[2017-12-02] MEDS: Z GUARD REMEDY 4 OZ OINT TP SCH ×2 (09:00→21:37)
[2017-12-02] MEDS: ZINC OXIDE 30 GM TUBE TP SCH (09:00)
[2017-12-02] MEDS: CLONIDINE HCL 0.1 MG TABLET GT PRN ×2 (12:11→18:01)
[2017-12-02] MEDS: SENNOSIDES 8.6 MG TABLET GT SCH (21:36)
[2017-12-02] MEDS: ASCORBIC ACID 500 MG TABLET GT SCH (21:36)
[2017-12-02] MEDS: CYANOCOBALAMIN 500 MCG TABLET GT SCH (21:36)
[2017-12-02] MEDS: DULOXETINE HCL 30 MG CAPSULE.DR GT SCH (21:37)
[2017-12-03] VITALS: BP 120/68
[2017-12-03] MEDS: IPRATROPIUM NEB FS 0.5 MG/2.5 ML AMPUL.NEB NEB SCH ×4 (02:06→18:48)
[2017-12-03] MEDS: ALBUTEROL HALF STRENGTH 1.25 MG/3 ML VIAL.NEB NEB SCH ×4 (02:06→18:48)
[2017-12-03] MEDS: FIBERSOURCE HN 1,000 ML BOTTLE GT PRN ×2 (02:35→17:20)
[2017-12-03] MEDS: TRAMADOL HCL 50 MG TABLET GT PRN (02:53)
[2017-12-03 06:00] VITALS: BP 118/62
[2017-12-03] MEDS: OMEPRAZOLE 20 MG CAPSULE.DR GT SCH (06:05)
[2017-12-03] MEDS: LEVOTHYROXINE SODIUM 25 MCG TABLET GT SCH (06:05)
[2017-12-03 06:32] LABS: BASOPHILS % (AUTO) 0.3 % (0.0-2.0); EOSINOPHILS # (AUTO) 0.1 /CMM (0.0-0.7); EOSINOPHILS % (AUTO) 0.9 % (0.0-6.0); HEMATOCRIT 30 % (33-45); HEMOGLOBIN 10.3 g/dL (11.5-14.8); LYMPHOCYTES # (AUTO) 0.9 /CMM (0.8-4.8); LYMPHOCYTES % (AUTO) 7.7 % (20.0-44.0); MEAN CORPUSCULAR HEMOGLOBIN 30 PG (26.0-33.0); MEAN CORPUSCULAR HGB CONC 34 g/dl (31.0-36.0); MEAN CORPUSCULAR VOLUME 88 fL (82-100); MONOCYTES # (AUTO) 0.8 /CMM (0.1-1.30); MONOCYTES % (AUTO) 6.9 % (2.0-12.0); NEUTROPHILS # (AUTO) 10.4 /CMM (1.8-8.9); NEUTROPHILS % (AUTO) 84.2 % (43.0-81.0); PLATELET COUNT (AUTO) 334 /CMM (150-450); RDW COEFFICIENT OF VARIATION 15.1 (11.5-15.0); RED BLOOD CELL COUNT(AUTO) 3.42 MIL/uL (4.0-5.2); WHITE BLOOD COUNT (AUTO) 12.3 K/uL (4.3-11.0)
[2017-12-03 08:18] VITALS: BP 125/60
[2017-12-03] MEDS: FERROUS SULFATE - FOR SA ONLY 330 MG/7.5 ML UDC GT SCH (09:00)
[2017-12-03] MEDS: Z GUARD REMEDY 4 OZ OINT TP SCH ×2 (09:00→21:13)
[2017-12-03] MEDS: HYDROGEN PEROXIDE 480 ML BOTTLE TP SCH ×2 (09:00→21:13)
[2017-12-03] MEDS: MECLIZINE HCL 12.5 MG TABLET GT SCH ×2 (09:00→21:12)
[2017-12-03] MEDS: POLYETHYLENE GLYCOL 3350 17 GM POWD.PACK GT SCH (09:00)
[2017-12-03] MEDS: METOCLOPRAMIDE HCL 10 MG/10 ML UDC GT SCH ×3 (09:00→17:18)
[2017-12-03 14:31] VITALS: BP 122/68
[2017-12-03 18:24] VITALS: BP 129/63
[2017-12-03 19:47] VITALS: BP 103/52
[2017-12-03] MEDS: SENNOSIDES 8.6 MG TABLET GT SCH (21:12)
[2017-12-03] MEDS: CYANOCOBALAMIN 500 MCG TABLET GT SCH (21:12)
[2017-12-03] MEDS: ASCORBIC ACID 500 MG TABLET GT SCH (21:13)
[2017-12-03] MEDS: DULOXETINE HCL 30 MG CAPSULE.DR GT SCH (21:13)
[2017-12-04 00:41] VITALS: BP 116/60
[2017-12-04] MEDS: IPRATROPIUM NEB FS 0.5 MG/2.5 ML AMPUL.NEB NEB SCH ×4 (01:06→19:27)
[2017-12-04] MEDS: ALBUTEROL HALF STRENGTH 1.25 MG/3 ML VIAL.NEB NEB SCH ×4 (01:06→19:27)
[2017-12-04] MEDS: LEVOTHYROXINE SODIUM 25 MCG TABLET GT SCH (05:47)
[2017-12-04] MEDS: OMEPRAZOLE 20 MG CAPSULE.DR GT SCH (05:47)
[2017-12-04 06:07] VITALS: BP 112/58
[2017-12-04 07:48] VITALS: BP 122/56
[2017-12-04] MEDS: HYDROGEN PEROXIDE 480 ML BOTTLE TP SCH ×2 (09:35→21:05)
[2017-12-04] MEDS: FERROUS SULFATE - FOR SA ONLY 330 MG/7.5 ML UDC GT SCH (09:35)
[2017-12-04] MEDS: METOCLOPRAMIDE HCL 10 MG/10 ML UDC GT SCH ×3 (09:35→16:19)
[2017-12-04] MEDS: Z GUARD REMEDY 4 OZ OINT TP SCH ×2 (09:35→21:05)
[2017-12-04] MEDS: MECLIZINE HCL 12.5 MG TABLET GT SCH ×2 (09:35→21:05)
[2017-12-04] MEDS: POLYETHYLENE GLYCOL 3350 17 GM POWD.PACK GT SCH (09:35)
[2017-12-04 16:23] VITALS: BP 122/56
[2017-12-04] MEDS: FIBERSOURCE HN 1,000 ML BOTTLE GT PRN (16:29)
[2017-12-04 18:33] VITALS: BP 121/65
[2017-12-04] MEDS: ASCORBIC ACID 500 MG TABLET GT SCH (21:05)
[2017-12-04] MEDS: SENNOSIDES 8.6 MG TABLET GT SCH (21:05)
[2017-12-04] MEDS: DULOXETINE HCL 30 MG CAPSULE.DR GT SCH (21:05)
[2017-12-04] MEDS: CYANOCOBALAMIN 500 MCG TABLET GT SCH (21:05)
[2017-12-04 22:51] VITALS: BP 110/73
[2017-12-05 00:19] VITALS: BP 120/60
[2017-12-05] MEDS: ALBUTEROL HALF STRENGTH 1.25 MG/3 ML VIAL.NEB NEB SCH ×4 (01:23→19:56)
[2017-12-05] MEDS: IPRATROPIUM NEB FS 0.5 MG/2.5 ML AMPUL.NEB NEB SCH ×4 (01:23→19:56)
[2017-12-05] MEDS: LEVOTHYROXINE SODIUM 25 MCG TABLET GT SCH (05:53)
[2017-12-05] MEDS: OMEPRAZOLE 20 MG CAPSULE.DR GT SCH (05:53)
[2017-12-05 06:09] VITALS: BP 128/64
[2017-12-05 07:52] VITALS: BP 119/57
[2017-12-05] MEDS: Z GUARD REMEDY 4 OZ OINT TP SCH ×2 (09:51→21:38)
[2017-12-05] MEDS: POLYETHYLENE GLYCOL 3350 17 GM POWD.PACK GT SCH (09:51)
[2017-12-05] MEDS: HYDROGEN PEROXIDE 480 ML BOTTLE TP SCH ×2 (09:51→21:37)
[2017-12-05] MEDS: FERROUS SULFATE - FOR SA ONLY 330 MG/7.5 ML UDC GT SCH (09:51)
[2017-12-05] MEDS: MECLIZINE HCL 12.5 MG TABLET GT SCH ×2 (09:51→21:37)
[2017-12-05] MEDS: METOCLOPRAMIDE HCL 10 MG/10 ML UDC GT SCH ×3 (09:51→16:34)
[2017-12-05 16:35] VITALS: BP 119/57
[2017-12-05 18:12] VITALS: BP 119/57
[2017-12-05 19:59] VITALS: BP 133/68
[2017-12-05] MEDS: SENNOSIDES 8.6 MG TABLET GT SCH (21:37)
[2017-12-05] MEDS: CYANOCOBALAMIN 500 MCG TABLET GT SCH (21:37)
[2017-12-05] MEDS: ASCORBIC ACID 500 MG TABLET GT SCH (21:37)
[2017-12-05] MEDS: DULOXETINE HCL 30 MG CAPSULE.DR GT SCH (21:38)
[2017-12-06 00:36] VITALS: BP 122/58
[2017-12-06] MEDS: ALBUTEROL HALF STRENGTH 1.25 MG/3 ML VIAL.NEB NEB SCH ×4 (02:08→19:30)
[2017-12-06] MEDS: IPRATROPIUM NEB FS 0.5 MG/2.5 ML AMPUL.NEB NEB SCH ×4 (02:08→19:30)
[2017-12-06 06:26] VITALS: BP 109/56
[2017-12-06] MEDS: LEVOTHYROXINE SODIUM 25 MCG TABLET GT SCH (06:28)
[2017-12-06] MEDS: OMEPRAZOLE 20 MG CAPSULE.DR GT SCH (06:28)
[2017-12-06 06:33] LABS: BASOPHILS % (AUTO) 0.3 % (0.0-2.0); EOSINOPHILS # (AUTO) 0.2 /CMM (0.0-0.7); EOSINOPHILS % (AUTO) 1.6 % (0.0-6.0); HEMATOCRIT 31 % (33-45); HEMOGLOBIN 10.4 g/dL (11.5-14.8); LYMPHOCYTES # (AUTO) 1.8 /CMM (0.8-4.8); LYMPHOCYTES % (AUTO) 17.2 % (20.0-44.0); MEAN CORPUSCULAR HEMOGLOBIN 30 PG (26.0-33.0); MEAN CORPUSCULAR HGB CONC 33 g/dl (31.0-36.0); MEAN CORPUSCULAR VOLUME 90 fL (82-100); MONOCYTES # (AUTO) 1.1 /CMM (0.1-1.30); MONOCYTES % (AUTO) 10.5 % (2.0-12.0); NEUTROPHILS # (AUTO) 7.4 /CMM (1.8-8.9); NEUTROPHILS % (AUTO) 70.4 % (43.0-81.0); PLATELET COUNT (AUTO) 363 /CMM (150-450); RDW COEFFICIENT OF VARIATION 15.9 (11.5-15.0); RED BLOOD CELL COUNT(AUTO) 3.49 MIL/uL (4.0-5.2); WHITE BLOOD COUNT (AUTO) 10.6 K/uL (4.3-11.0)
[2017-12-06 08:07] VITALS: BP 163/80
[2017-12-06] MEDS: FERROUS SULFATE - FOR SA ONLY 330 MG/7.5 ML UDC GT SCH (09:26)
[2017-12-06] MEDS: MECLIZINE HCL 12.5 MG TABLET GT SCH ×2 (09:26→21:15)
[2017-12-06] MEDS: HYDROGEN PEROXIDE 480 ML BOTTLE TP SCH ×2 (09:26→21:15)
[2017-12-06] MEDS: METOCLOPRAMIDE HCL 10 MG/10 ML UDC GT SCH ×3 (09:26→16:28)
[2017-12-06] MEDS: Z GUARD REMEDY 4 OZ OINT TP SCH ×2 (09:26→21:15)
[2017-12-06] MEDS: POLYETHYLENE GLYCOL 3350 17 GM POWD.PACK GT SCH (09:26)
[2017-12-06 16:07] VITALS: BP 163/80
[2017-12-06 18:36] VITALS: BP 163/80
[2017-12-06 20:18] VITALS: BP 130/69
[2017-12-06] MEDS: ASCORBIC ACID 500 MG TABLET GT SCH (21:15)
[2017-12-06] MEDS: SENNOSIDES 8.6 MG TABLET GT SCH (21:15)
[2017-12-06] MEDS: DULOXETINE HCL 30 MG CAPSULE.DR GT SCH (21:15)
[2017-12-06] MEDS: CYANOCOBALAMIN 500 MCG TABLET GT SCH (21:15)
[2017-12-07 00:55] VITALS: BP 125/79
[2017-12-07] MEDS: FIBERSOURCE HN 1,000 ML BOTTLE GT PRN ×2 (01:23→17:21)
[2017-12-07] MEDS: IPRATROPIUM NEB FS 0.5 MG/2.5 ML AMPUL.NEB NEB SCH ×4 (01:29→19:19)
[2017-12-07] MEDS: ALBUTEROL HALF STRENGTH 1.25 MG/3 ML VIAL.NEB NEB SCH ×4 (01:29→19:19)
[2017-12-07] MEDS: LEVOTHYROXINE SODIUM 25 MCG TABLET GT SCH (05:14)
[2017-12-07] MEDS: OMEPRAZOLE 20 MG CAPSULE.DR GT SCH (05:14)
[2017-12-07 06:24] VITALS: BP 101/68
[2017-12-07 07:35] VITALS: BP 136/61
[2017-12-07] MEDS: Z GUARD REMEDY 4 OZ OINT TP SCH ×2 (09:00→20:44)
[2017-12-07] MEDS: HYDROGEN PEROXIDE 480 ML BOTTLE TP SCH ×2 (09:00→20:44)
[2017-12-07] MEDS: FERROUS SULFATE - FOR SA ONLY 330 MG/7.5 ML UDC GT SCH (09:00)
[2017-12-07] MEDS: POLYETHYLENE GLYCOL 3350 17 GM POWD.PACK GT SCH (09:00)
[2017-12-07] MEDS: MECLIZINE HCL 12.5 MG TABLET GT SCH ×2 (09:00→20:44)
[2017-12-07] MEDS: METOCLOPRAMIDE HCL 10 MG/10 ML UDC GT SCH ×3 (09:00→17:21)
[2017-12-07 12:00] VITALS: BP 112/66
[2017-12-07 19:23] VITALS: BP 138/50
[2017-12-07 20:30] VITALS: BP 98/58
[2017-12-07] MEDS: SENNOSIDES 8.6 MG TABLET GT SCH (20:44)
[2017-12-07] MEDS: CYANOCOBALAMIN 500 MCG TABLET GT SCH (20:44)
[2017-12-07] MEDS: ASCORBIC ACID 500 MG TABLET GT SCH (20:44)
[2017-12-07] MEDS: DULOXETINE HCL 30 MG CAPSULE.DR GT SCH (22:00)
[2017-12-08] VITALS: BP 120/60
[2017-12-08] MEDS: IPRATROPIUM NEB FS 0.5 MG/2.5 ML AMPUL.NEB NEB SCH ×4 (00:58→19:44)
[2017-12-08] MEDS: ALBUTEROL HALF STRENGTH 1.25 MG/3 ML VIAL.NEB NEB SCH ×4 (00:58→19:44)
[2017-12-08] MEDS: OMEPRAZOLE 20 MG CAPSULE.DR GT SCH (05:13)
[2017-12-08] MEDS: LEVOTHYROXINE SODIUM 25 MCG TABLET GT SCH (05:13)
[2017-12-08 06:00] VITALS: BP 122/80
[2017-12-08 07:40] VITALS: BP 133/55
[2017-12-08] MEDS: HYDROGEN PEROXIDE 480 ML BOTTLE TP SCH (09:00)
[2017-12-08] MEDS: Z GUARD REMEDY 4 OZ OINT TP SCH (09:00)
[2017-12-08] MEDS: FERROUS SULFATE - FOR SA ONLY 330 MG/7.5 ML UDC GT SCH (09:44)
[2017-12-08] MEDS: METOCLOPRAMIDE HCL 10 MG/10 ML UDC GT SCH ×3 (09:44→17:14)
[2017-12-08] MEDS: POLYETHYLENE GLYCOL 3350 17 GM POWD.PACK GT SCH (09:44)
[2017-12-08] MEDS: MECLIZINE HCL 12.5 MG TABLET GT SCH ×2 (09:44→21:35)
[2017-12-08 15:57] VITALS: BP 133/55
[2017-12-08 18:35] VITALS: BP 133/55
[2017-12-08] MEDS: MAGNESIUM HYDROXIDE 30 ML UDC GT PRN (18:37)
[2017-12-08] MEDS: FIBERSOURCE HN 1,000 ML BOTTLE GT PRN (18:37)
[2017-12-08 20:05] VITALS: BP 139/83
[2017-12-08] MEDS: ASCORBIC ACID 500 MG TABLET GT SCH (21:35)
[2017-12-08] MEDS: CYANOCOBALAMIN 500 MCG TABLET GT SCH (21:35)
[2017-12-08] MEDS: SENNOSIDES 8.6 MG TABLET GT SCH (21:35)
[2017-12-08] MEDS: DULOXETINE HCL 20 MG CAPSULE.DR GT SCH (21:36)
[2017-12-08] MEDS ORDERED: DULOXETINE HCL 20 MG CAPSULE.DR GT SCH (22:00)
[2017-12-08] MEDS: ACETAMINOPHEN W/ CODEINE#3 1 EA TABLET GT PRN (22:30)
[2017-12-09 00:20] VITALS: BP 122/67
[2017-12-09] MEDS: IPRATROPIUM NEB FS 0.5 MG/2.5 ML AMPUL.NEB NEB SCH ×4 (01:13→19:57)
[2017-12-09] MEDS: ALBUTEROL HALF STRENGTH 1.25 MG/3 ML VIAL.NEB NEB SCH ×4 (01:13→19:57)
[2017-12-09] MEDS: OMEPRAZOLE 20 MG CAPSULE.DR GT SCH (05:33)
[2017-12-09] MEDS: LEVOTHYROXINE SODIUM 25 MCG TABLET GT SCH (05:33)
[2017-12-09 06:08] VITALS: BP 114/87
[2017-12-09 07:22] VITALS: BP 131/76
[2017-12-09] MEDS: Z GUARD REMEDY 4 OZ OINT TP SCH ×2 (09:00→21:04)
[2017-12-09] MEDS: MECLIZINE HCL 12.5 MG TABLET GT SCH ×2 (09:11→20:49)
[2017-12-09] MEDS: HYDROGEN PEROXIDE 480 ML BOTTLE TP SCH ×2 (09:11→21:04)
[2017-12-09] MEDS: FERROUS SULFATE - FOR SA ONLY 330 MG/7.5 ML UDC GT SCH (09:11)
[2017-12-09] MEDS: METOCLOPRAMIDE HCL 10 MG/10 ML UDC GT SCH ×3 (09:11→17:49)
[2017-12-09] MEDS: POLYETHYLENE GLYCOL 3350 17 GM POWD.PACK GT SCH (09:11)
[2017-12-09] MEDS: FIBERSOURCE HN 1,000 ML BOTTLE GT PRN (10:07)
[2017-12-09 12:00] VITALS: BP 117/77
[2017-12-09 18:27] VITALS: BP 112/61
[2017-12-09 19:52] VITALS: BP 142/77
[2017-12-09] MEDS: SENNOSIDES 8.6 MG TABLET GT SCH (20:49)
[2017-12-09] MEDS: ASCORBIC ACID 500 MG TABLET GT SCH (20:50)
[2017-12-09] MEDS: CYANOCOBALAMIN 500 MCG TABLET GT SCH (20:50)
[2017-12-09] MEDS: DULOXETINE HCL 20 MG CAPSULE.DR GT SCH (21:04)
[2017-12-10 00:31] VITALS: BP 125/76
[2017-12-10] MEDS: IPRATROPIUM NEB FS 0.5 MG/2.5 ML AMPUL.NEB NEB SCH ×4 (02:07→19:35)
[2017-12-10] MEDS: ALBUTEROL HALF STRENGTH 1.25 MG/3 ML VIAL.NEB NEB SCH ×4 (02:07→19:35)
[2017-12-10] MEDS: LEVOTHYROXINE SODIUM 25 MCG TABLET GT SCH (05:33)
[2017-12-10] MEDS: OMEPRAZOLE 20 MG CAPSULE.DR GT SCH (05:33)
[2017-12-10] MEDS: FIBERSOURCE HN 1,000 ML BOTTLE GT PRN (05:38)
[2017-12-10 06:07] VITALS: BP 109/53
[2017-12-10 07:41] VITALS: BP 123/71
[2017-12-10] MEDS: HYDROGEN PEROXIDE 480 ML BOTTLE TP SCH ×2 (09:00→21:41)
[2017-12-10] MEDS: MECLIZINE HCL 12.5 MG TABLET GT SCH ×2 (09:00→21:41)
[2017-12-10] MEDS: FERROUS SULFATE - FOR SA ONLY 330 MG/7.5 ML UDC GT SCH (09:00)
[2017-12-10] MEDS: METOCLOPRAMIDE HCL 10 MG/10 ML UDC GT SCH ×3 (09:00→17:10)
[2017-12-10] MEDS: Z GUARD REMEDY 4 OZ OINT TP SCH ×2 (09:00→21:41)
[2017-12-10] MEDS: POLYETHYLENE GLYCOL 3350 17 GM POWD.PACK GT SCH (09:00)
[2017-12-10 12:00] VITALS: BP 122/79
[2017-12-10 18:47] VITALS: BP 135/83
[2017-12-10 20:54] VITALS: BP 119/74
[2017-12-10] MEDS: ASCORBIC ACID 500 MG TABLET GT SCH (21:41)
[2017-12-10] MEDS: DULOXETINE HCL 20 MG CAPSULE.DR GT SCH (21:41)
[2017-12-10] MEDS: SENNOSIDES 8.6 MG TABLET GT SCH (21:41)
[2017-12-10] MEDS: CYANOCOBALAMIN 500 MCG TABLET GT SCH (21:41)
[2017-12-11] MEDS: ALBUTEROL HALF STRENGTH 1.25 MG/3 ML VIAL.NEB NEB SCH ×4 (01:03→20:05)
[2017-12-11] MEDS: IPRATROPIUM NEB FS 0.5 MG/2.5 ML AMPUL.NEB NEB SCH ×4 (01:03→20:05)
[2017-12-11 04:01] VITALS: BP 119/76
[2017-12-11] MEDS: LEVOTHYROXINE SODIUM 25 MCG TABLET GT SCH (05:46)
[2017-12-11] MEDS: OMEPRAZOLE 20 MG CAPSULE.DR GT SCH (05:46)
[2017-12-11 06:04] VITALS: BP 112/62
[2017-12-11 07:45] VITALS: BP 138/66
[2017-12-11] MEDS: HYDROGEN PEROXIDE 480 ML BOTTLE TP SCH ×2 (09:00→21:10)
[2017-12-11] MEDS: FERROUS SULFATE - FOR SA ONLY 330 MG/7.5 ML UDC GT SCH (09:00)
[2017-12-11] MEDS: Z GUARD REMEDY 4 OZ OINT TP SCH ×2 (09:00→21:10)
[2017-12-11] MEDS: METOCLOPRAMIDE HCL 10 MG/10 ML UDC GT SCH ×3 (09:00→16:58)
[2017-12-11] MEDS: MECLIZINE HCL 12.5 MG TABLET GT SCH ×2 (09:00→21:10)
[2017-12-11] MEDS: POLYETHYLENE GLYCOL 3350 17 GM POWD.PACK GT SCH (09:00)
[2017-12-11 15:57] VITALS: BP 126/66
[2017-12-11 18:35] VITALS: BP 130/62
[2017-12-11 20:02] VITALS: BP 140/76
[2017-12-11] MEDS: SENNOSIDES 8.6 MG TABLET GT SCH (21:10)
[2017-12-11] MEDS: FIBERSOURCE HN 1,000 ML BOTTLE GT PRN (21:10)
[2017-12-11] MEDS: ASCORBIC ACID 500 MG TABLET GT SCH (21:10)
[2017-12-11] MEDS: CYANOCOBALAMIN 500 MCG TABLET GT SCH (21:10)
[2017-12-11] MEDS: DULOXETINE HCL 20 MG CAPSULE.DR GT SCH (21:10)
[2017-12-12 00:17] VITALS: BP 133/67
[2017-12-12] MEDS: IPRATROPIUM NEB FS 0.5 MG/2.5 ML AMPUL.NEB NEB SCH ×4 (00:52→20:01)
[2017-12-12] MEDS: ALBUTEROL HALF STRENGTH 1.25 MG/3 ML VIAL.NEB NEB SCH ×4 (00:52→20:01)
[2017-12-12] MEDS: LEVOTHYROXINE SODIUM 25 MCG TABLET GT SCH (05:06)
[2017-12-12] MEDS: OMEPRAZOLE 20 MG CAPSULE.DR GT SCH (05:06)
[2017-12-12 06:19] VITALS: BP 128/72
[2017-12-12 07:58] VITALS: BP 130/78
[2017-12-12] MEDS: FERROUS SULFATE - FOR SA ONLY 330 MG/7.5 ML UDC GT SCH (09:00)
[2017-12-12] MEDS: MECLIZINE HCL 12.5 MG TABLET GT SCH ×2 (09:00→21:25)
[2017-12-12] MEDS: METOCLOPRAMIDE HCL 10 MG/10 ML UDC GT SCH ×3 (09:00→16:48)
[2017-12-12] MEDS: POLYETHYLENE GLYCOL 3350 17 GM POWD.PACK GT SCH (09:00)
[2017-12-12] MEDS: Z GUARD REMEDY 4 OZ OINT TP SCH ×2 (11:30→21:26)
[2017-12-12] MEDS: HYDROGEN PEROXIDE 480 ML BOTTLE TP SCH ×2 (11:30→21:26)
[2017-12-12 14:31] VITALS: BP 130/78
[2017-12-12] MEDS: FIBERSOURCE HN 1,000 ML BOTTLE GT PRN (16:48)
[2017-12-12 18:39] VITALS: BP 100/56
[2017-12-12 20:49] VITALS: BP 120/72
[2017-12-12] MEDS: ASCORBIC ACID 500 MG TABLET GT SCH (21:25)
[2017-12-12] MEDS: CYANOCOBALAMIN 500 MCG TABLET GT SCH (21:25)
[2017-12-12] MEDS: SENNOSIDES 8.6 MG TABLET GT SCH (21:25)
[2017-12-12] MEDS: DULOXETINE HCL 20 MG CAPSULE.DR GT SCH (21:26)
[2017-12-13 00:03] VITALS: BP 109/69
[2017-12-13] MEDS: ALBUTEROL HALF STRENGTH 1.25 MG/3 ML VIAL.NEB NEB SCH ×4 (01:50→20:09)
[2017-12-13] MEDS: IPRATROPIUM NEB FS 0.5 MG/2.5 ML AMPUL.NEB NEB SCH ×4 (01:50→20:09)
[2017-12-13 06:17] VITALS: BP 112/69
[2017-12-13] MEDS: OMEPRAZOLE 20 MG CAPSULE.DR GT SCH (06:22)
[2017-12-13] MEDS: LEVOTHYROXINE SODIUM 25 MCG TABLET GT SCH (06:22)
[2017-12-13 08:05] VITALS: BP 124/77
[2017-12-13] MEDS: HYDROGEN PEROXIDE 480 ML BOTTLE TP SCH ×2 (09:00→21:08)
[2017-12-13] MEDS: Z GUARD REMEDY 4 OZ OINT TP SCH ×2 (09:00→21:08)
[2017-12-13] MEDS: METOCLOPRAMIDE HCL 10 MG/10 ML UDC GT SCH ×3 (09:47→17:13)
[2017-12-13] MEDS: POLYETHYLENE GLYCOL 3350 17 GM POWD.PACK GT SCH (09:47)
[2017-12-13] MEDS: MECLIZINE HCL 12.5 MG TABLET GT SCH ×2 (09:47→21:08)
[2017-12-13] MEDS: FERROUS SULFATE - FOR SA ONLY 330 MG/7.5 ML UDC GT SCH (09:47)
[2017-12-13 12:00] VITALS: BP 116/74
[2017-12-13] MEDS: CLONIDINE HCL 0.1 MG TABLET GT PRN ×2 (12:58→17:23)
[2017-12-13] MEDS: FIBERSOURCE HN 1,000 ML BOTTLE GT PRN (17:22)
[2017-12-13 18:00] VITALS: BP 131/67
[2017-12-13 20:03] VITALS: BP 112/58
[2017-12-13] MEDS: DULOXETINE HCL 20 MG CAPSULE.DR GT SCH (21:08)
[2017-12-13] MEDS: ASCORBIC ACID 500 MG TABLET GT SCH (21:08)
[2017-12-13] MEDS: SENNOSIDES 8.6 MG TABLET GT SCH (21:08)
[2017-12-13] MEDS: CYANOCOBALAMIN 500 MCG TABLET GT SCH (21:08)
[2017-12-14 00:11] VITALS: BP 122/66
[2017-12-14] MEDS: IPRATROPIUM NEB FS 0.5 MG/2.5 ML AMPUL.NEB NEB SCH ×4 (01:17→20:14)
[2017-12-14] MEDS: ALBUTEROL HALF STRENGTH 1.25 MG/3 ML VIAL.NEB NEB SCH ×4 (01:17→20:14)
[2017-12-14] MEDS: OMEPRAZOLE 20 MG CAPSULE.DR GT SCH (05:09)
[2017-12-14] MEDS: LEVOTHYROXINE SODIUM 25 MCG TABLET GT SCH (05:10)
[2017-12-14 06:08] VITALS: BP 122/77
[2017-12-14 07:26] VITALS: BP 99/71
[2017-12-14] MEDS: HYDROGEN PEROXIDE 480 ML BOTTLE TP SCH ×2 (09:00→20:55)
[2017-12-14] MEDS: Z GUARD REMEDY 4 OZ OINT TP SCH ×2 (09:00→20:55)
[2017-12-14] MEDS: METOCLOPRAMIDE HCL 10 MG/10 ML UDC GT SCH ×3 (09:06→17:12)
[2017-12-14] MEDS: POLYETHYLENE GLYCOL 3350 17 GM POWD.PACK GT SCH (09:06)
[2017-12-14] MEDS: FERROUS SULFATE - FOR SA ONLY 330 MG/7.5 ML UDC GT SCH (09:06)
[2017-12-14] MEDS: MECLIZINE HCL 12.5 MG TABLET GT SCH ×2 (09:06→20:55)
[2017-12-14 12:00] VITALS: BP 129/93
[2017-12-14] MEDS: FIBERSOURCE HN 1,000 ML BOTTLE GT PRN (13:23)
[2017-12-14] MEDS: ACETAMINOPHEN W/ CODEINE#3 1 EA TABLET GT PRN (17:48)
[2017-12-14 18:41] VITALS: BP 116/54
[2017-12-14] MEDS: SENNOSIDES 8.6 MG TABLET GT SCH (20:55)
[2017-12-14] MEDS: CYANOCOBALAMIN 500 MCG TABLET GT SCH (20:55)
[2017-12-14] MEDS: ASCORBIC ACID 500 MG TABLET GT SCH (20:55)
[2017-12-14] MEDS: MAGNESIUM HYDROXIDE 30 ML UDC GT PRN (21:03)
[2017-12-14] MEDS: DULOXETINE HCL 20 MG CAPSULE.DR GT SCH (21:03)
[2017-12-15] VITALS (7 sets, daily range): BP systolic 107–124; BP diastolic 55–83
[2017-12-15] MEDS: IPRATROPIUM NEB FS 0.5 MG/2.5 ML AMPUL.NEB NEB SCH ×4 (02:12→19:19)
[2017-12-15] MEDS: ALBUTEROL HALF STRENGTH 1.25 MG/3 ML VIAL.NEB NEB SCH ×4 (02:12→19:19)
[2017-12-15] MEDS: LEVOTHYROXINE SODIUM 25 MCG TABLET GT SCH (05:06)
[2017-12-15] MEDS: OMEPRAZOLE 20 MG CAPSULE.DR GT SCH (05:06)
[2017-12-15] MEDS: SIMETHICONE SUSP 40 MG/0.6 ML BOTTLE GT PRN (05:06)
[2017-12-15] MEDS: FERROUS SULFATE - FOR SA ONLY 330 MG/7.5 ML UDC GT SCH (09:00)
[2017-12-15] MEDS: METOCLOPRAMIDE HCL 10 MG/10 ML UDC GT SCH ×3 (09:00→17:46)
[2017-12-15] MEDS: POLYETHYLENE GLYCOL 3350 17 GM POWD.PACK GT SCH (09:00)
[2017-12-15] MEDS: HYDROGEN PEROXIDE 480 ML BOTTLE TP SCH ×2 (09:00→21:21)
[2017-12-15] MEDS: Z GUARD REMEDY 4 OZ OINT TP SCH ×2 (09:00→21:21)
[2017-12-15] MEDS: MECLIZINE HCL 12.5 MG TABLET GT SCH ×2 (09:00→21:21)
[2017-12-15] MEDS: ACETAMINOPHEN 650 MG/20 ML UDC- FOR SA PATIENTS ONLY GT PRN (10:24)
[2017-12-15] MEDS: CYANOCOBALAMIN 500 MCG TABLET GT SCH (21:21)
[2017-12-15] MEDS: ASCORBIC ACID 500 MG TABLET GT SCH (21:21)
[2017-12-15] MEDS: DULOXETINE HCL 20 MG CAPSULE.DR GT SCH (21:21)
[2017-12-15] MEDS: SENNOSIDES 8.6 MG TABLET GT SCH (21:21)
[2017-12-16 00:41] VITALS: BP 109/52
[2017-12-16] MEDS: IPRATROPIUM NEB FS 0.5 MG/2.5 ML AMPUL.NEB NEB SCH ×4 (00:56→19:43)
[2017-12-16] MEDS: ALBUTEROL HALF STRENGTH 1.25 MG/3 ML VIAL.NEB NEB SCH ×4 (00:56→19:43)
[2017-12-16] MEDS: OMEPRAZOLE 20 MG CAPSULE.DR GT SCH (05:53)
[2017-12-16] MEDS: LEVOTHYROXINE SODIUM 25 MCG TABLET GT SCH (05:53)
[2017-12-16] MEDS: FIBERSOURCE HN 1,000 ML BOTTLE GT PRN ×2 (05:54→23:47)
[2017-12-16 06:27] VITALS: BP 118/61
[2017-12-16 07:39] VITALS: BP 108/82
[2017-12-16] MEDS: ACETAMINOPHEN 650 MG/20 ML UDC- FOR SA PATIENTS ONLY GT PRN ×2 (07:44→16:55)
[2017-12-16] MEDS: FERROUS SULFATE - FOR SA ONLY 330 MG/7.5 ML UDC GT SCH (09:00)
[2017-12-16] MEDS: HYDROGEN PEROXIDE 480 ML BOTTLE TP SCH ×2 (09:00→21:21)
[2017-12-16] MEDS: POLYETHYLENE GLYCOL 3350 17 GM POWD.PACK GT SCH (09:00)
[2017-12-16] MEDS: Z GUARD REMEDY 4 OZ OINT TP SCH ×2 (09:00→21:22)
[2017-12-16] MEDS: METOCLOPRAMIDE HCL 10 MG/10 ML UDC GT SCH ×3 (09:00→16:54)
[2017-12-16] MEDS: MECLIZINE HCL 12.5 MG TABLET GT SCH ×2 (09:00→21:21)
[2017-12-16 12:00] VITALS: BP 122/75
[2017-12-16] MEDS: VANCOMYCIN HCL 0.75 GM in IV D5W 250 ML IV SCH (12:00)
[2017-12-16] MEDS: PIPERACILLIN /TAZOBACTAM 3.375 G in IV NS 0.9% 50 ML IV SCH ×2 (14:00→22:00)
[2017-12-16 18:00] VITALS: BP 122/82
[2017-12-16 20:12] VITALS: BP 129/61
[2017-12-16] MEDS: SENNOSIDES 8.6 MG TABLET GT SCH (21:21)
[2017-12-16] MEDS: ASCORBIC ACID 500 MG TABLET GT SCH (21:21)
[2017-12-16] MEDS: CYANOCOBALAMIN 500 MCG TABLET GT SCH (21:21)
[2017-12-16] MEDS: DULOXETINE HCL 20 MG CAPSULE.DR GT SCH (21:22)
[2017-12-17 00:08] VITALS: BP 121/58
[2017-12-17] MEDS: IPRATROPIUM NEB FS 0.5 MG/2.5 ML AMPUL.NEB NEB SCH ×4 (01:04→19:54)
[2017-12-17] MEDS: ALBUTEROL HALF STRENGTH 1.25 MG/3 ML VIAL.NEB NEB SCH ×4 (01:04→19:54)
[2017-12-17] MEDS: ACETAMINOPHEN 650 MG/20 ML UDC- FOR SA PATIENTS ONLY GT PRN (01:36)
[2017-12-17] MEDS: TRAMADOL HCL 50 MG TABLET GT PRN (04:33)
[2017-12-17] MEDS: OMEPRAZOLE 20 MG CAPSULE.DR GT SCH (06:15)
[2017-12-17] MEDS: LEVOTHYROXINE SODIUM 25 MCG TABLET GT SCH (06:15)
[2017-12-17 06:16] VITALS: BP 135/79
[2017-12-17] MEDS: PIPERACILLIN /TAZOBACTAM 3.375 G in IV NS 0.9% 50 ML IV SCH ×3 (07:00→22:16)
[2017-12-17 07:33] LABS: BASOPHILS % (AUTO) 0.2 % (0.0-2.0); EOSINOPHILS # (AUTO) 0.4 /CMM (0.0-0.7); EOSINOPHILS % (AUTO) 3.9 % (0.0-6.0); HEMATOCRIT 29 % (33-45); HEMOGLOBIN 9.6 g/dL (11.5-14.8); LYMPHOCYTES # (AUTO) 0.8 /CMM (0.8-4.8); LYMPHOCYTES % (AUTO) 7.8 % (20.0-44.0); MEAN CORPUSCULAR HEMOGLOBIN 30 PG (26.0-33.0); MEAN CORPUSCULAR HGB CONC 34 g/dl (31.0-36.0); MEAN CORPUSCULAR VOLUME 90 fL (82-100); MONOCYTES # (AUTO) 0.8 /CMM (0.1-1.30); MONOCYTES % (AUTO) 8.1 % (2.0-12.0); NEUTROPHILS # (AUTO) 7.9 /CMM (1.8-8.9); PLATELET COUNT (AUTO) 293 /CMM (150-450); RDW COEFFICIENT OF VARIATION 16.3 (11.5-15.0); RED BLOOD CELL COUNT(AUTO) 3.19 MIL/uL (4.0-5.2); WHITE BLOOD COUNT (AUTO) 9.9 K/uL (4.3-11.0)
[2017-12-17 07:34] VITALS: BP 99/58
[2017-12-17 07:37] LABS: CALCIUM, SERUM 8.3 mg/dL (8.5-10.1); CARBON DIOXIDE 31 mmol/L (21-32); CHLORIDE 104 mmol/L (98-107); CREATININE 0.3 mg/dL (0.6-1.3); GLUCOSE 103 mg/dL (74-106); SODIUM SERUM 140 mmol/L (136-145); UREA NITROGEN, BLOOD 17 mg/dL (7-18)
[2017-12-17] MEDS: POLYETHYLENE GLYCOL 3350 17 GM POWD.PACK GT SCH (09:14)
[2017-12-17] MEDS: MECLIZINE HCL 12.5 MG TABLET GT SCH ×2 (09:14→20:26)
[2017-12-17] MEDS: FERROUS SULFATE - FOR SA ONLY 330 MG/7.5 ML UDC GT SCH (09:14)
[2017-12-17] MEDS: METOCLOPRAMIDE HCL 10 MG/10 ML UDC GT SCH ×3 (09:15→17:30)
[2017-12-17] MEDS: Z GUARD REMEDY 4 OZ OINT TP SCH ×2 (09:30→20:28)
[2017-12-17] MEDS: HYDROGEN PEROXIDE 480 ML BOTTLE TP SCH ×2 (09:30→20:28)
[2017-12-17 13:16] VITALS: BP 100/58
[2017-12-17] MEDS: VANCOMYCIN HCL 0.75 GM in IV D5W 250 ML IV SCH ×3 (13:45)
[2017-12-17] MEDS: FIBERSOURCE HN 1,000 ML BOTTLE GT PRN (18:30)
[2017-12-17 18:37] VITALS: BP 112/76
[2017-12-17 20:03] VITALS: BP 102/67
[2017-12-17] MEDS: CYANOCOBALAMIN 500 MCG TABLET GT SCH (20:26)
[2017-12-17] MEDS: SENNOSIDES 8.6 MG TABLET GT SCH (20:27)
[2017-12-17] MEDS: ASCORBIC ACID 500 MG TABLET GT SCH (20:27)
[2017-12-17] MEDS: DULOXETINE HCL 20 MG CAPSULE.DR GT SCH (21:45)
[2017-12-18 00:06] VITALS: BP 123/78
[2017-12-18] MEDS: VANCOMYCIN HCL 0.75 GM in IV D5W 250 ML IV SCH ×2 (00:29→12:00)
[2017-12-18] MEDS: ALBUTEROL HALF STRENGTH 1.25 MG/3 ML VIAL.NEB NEB SCH ×4 (00:47→20:01)
[2017-12-18] MEDS: IPRATROPIUM NEB FS 0.5 MG/2.5 ML AMPUL.NEB NEB SCH ×4 (00:47→20:01)
[2017-12-18] MEDS: LEVOTHYROXINE SODIUM 25 MCG TABLET GT SCH (06:02)
[2017-12-18] MEDS: OMEPRAZOLE 20 MG CAPSULE.DR GT SCH (06:02)
[2017-12-18] MEDS: PIPERACILLIN /TAZOBACTAM 3.375 G in IV NS 0.9% 50 ML IV SCH ×3 (06:10→22:11)
[2017-12-18 06:12] VITALS: BP 118/69
[2017-12-18 07:51] VITALS: BP 135/68
[2017-12-18] MEDS: POLYETHYLENE GLYCOL 3350 17 GM POWD.PACK GT SCH (09:00)
[2017-12-18] MEDS: MECLIZINE HCL 12.5 MG TABLET GT SCH ×2 (09:00→20:44)
[2017-12-18] MEDS: FERROUS SULFATE - FOR SA ONLY 330 MG/7.5 ML UDC GT SCH (09:00)
[2017-12-18] MEDS: METOCLOPRAMIDE HCL 10 MG/10 ML UDC GT SCH ×3 (09:00→17:00)
[2017-12-18] MEDS: HYDROGEN PEROXIDE 480 ML BOTTLE TP SCH ×2 (14:00→20:46)
[2017-12-18] MEDS: Z GUARD REMEDY 4 OZ OINT TP SCH ×2 (14:00→20:46)
[2017-12-18 14:38] VITALS: BP 135/68
[2017-12-18] MEDS: FIBERSOURCE HN 1,000 ML BOTTLE GT PRN (14:53)
[2017-12-18 18:35] VITALS: BP 106/55
[2017-12-18 20:14] VITALS: BP 95/65
[2017-12-18] MEDS: CYANOCOBALAMIN 500 MCG TABLET GT SCH (20:45)
[2017-12-18] MEDS: SENNOSIDES 8.6 MG TABLET GT SCH (20:45)
[2017-12-18] MEDS: ASCORBIC ACID 500 MG TABLET GT SCH (20:46)
[2017-12-18] MEDS: DULOXETINE HCL 20 MG CAPSULE.DR GT SCH (22:00)
[2017-12-19 00:49] VITALS: BP 122/70
[2017-12-19] MEDS: IPRATROPIUM NEB FS 0.5 MG/2.5 ML AMPUL.NEB NEB SCH ×4 (01:37→20:15)
[2017-12-19] MEDS: ALBUTEROL HALF STRENGTH 1.25 MG/3 ML VIAL.NEB NEB SCH ×4 (01:37→20:15)
[2017-12-19] MEDS: FIBERSOURCE HN 1,000 ML BOTTLE GT PRN (04:17)
[2017-12-19] MEDS: OMEPRAZOLE 20 MG CAPSULE.DR GT SCH (05:25)
[2017-12-19] MEDS: LEVOTHYROXINE SODIUM 25 MCG TABLET GT SCH (05:25)
[2017-12-19] MEDS: PIPERACILLIN /TAZOBACTAM 3.375 G in IV NS 0.9% 50 ML IV SCH ×3 (06:10→22:00)
[2017-12-19 06:51] VITALS: BP 115/73
[2017-12-19 07:54] VITALS: BP 135/68
[2017-12-19] MEDS: POLYETHYLENE GLYCOL 3350 17 GM POWD.PACK GT SCH (08:27)
[2017-12-19] MEDS: MECLIZINE HCL 12.5 MG TABLET GT SCH ×2 (08:27→20:49)
[2017-12-19] MEDS: METOCLOPRAMIDE HCL 10 MG/10 ML UDC GT SCH ×3 (08:27→17:00)
[2017-12-19] MEDS: FERROUS SULFATE - FOR SA ONLY 330 MG/7.5 ML UDC GT SCH (08:27)
[2017-12-19] MEDS: HYDROGEN PEROXIDE 480 ML BOTTLE TP SCH ×2 (09:00→20:50)
[2017-12-19] MEDS: Z GUARD REMEDY 4 OZ OINT TP SCH ×2 (09:00→20:50)
[2017-12-19 13:00] VITALS: BP 135/68
[2017-12-19 18:51] VITALS: BP 140/78
[2017-12-19 20:08] VITALS: BP 134/63
[2017-12-19] MEDS: CYANOCOBALAMIN 500 MCG TABLET GT SCH (20:48)
[2017-12-19] MEDS: SENNOSIDES 8.6 MG TABLET GT SCH (20:50)
[2017-12-19] MEDS: ASCORBIC ACID 500 MG TABLET GT SCH (20:50)
[2017-12-19] MEDS: DULOXETINE HCL 20 MG CAPSULE.DR GT SCH (22:06)
[2017-12-20 00:47] VITALS: BP 138/72
[2017-12-20] MEDS: IPRATROPIUM NEB FS 0.5 MG/2.5 ML AMPUL.NEB NEB SCH ×4 (01:33→19:30)
[2017-12-20] MEDS: ALBUTEROL HALF STRENGTH 1.25 MG/3 ML VIAL.NEB NEB SCH ×4 (01:33→19:30)
[2017-12-20] MEDS: FIBERSOURCE HN 1,000 ML BOTTLE GT PRN ×2 (04:52→22:44)
[2017-12-20] MEDS: OMEPRAZOLE 20 MG CAPSULE.DR GT SCH (05:34)
[2017-12-20] MEDS: LEVOTHYROXINE SODIUM 25 MCG TABLET GT SCH (05:34)
[2017-12-20 06:11] VITALS: BP 134/69
[2017-12-20 08:10] VITALS: BP 129/59
[2017-12-20] MEDS: FERROUS SULFATE - FOR SA ONLY 330 MG/7.5 ML UDC GT SCH (09:00)
[2017-12-20] MEDS: METOCLOPRAMIDE HCL 10 MG/10 ML UDC GT SCH ×3 (09:00→17:29)
[2017-12-20] MEDS: POLYETHYLENE GLYCOL 3350 17 GM POWD.PACK GT SCH (09:00)
[2017-12-20] MEDS: MECLIZINE HCL 12.5 MG TABLET GT SCH ×2 (09:00→21:43)
[2017-12-20] MEDS: Z GUARD REMEDY 4 OZ OINT TP SCH ×2 (09:00→21:43)
[2017-12-20] MEDS: HYDROGEN PEROXIDE 480 ML BOTTLE TP SCH ×2 (09:00→21:43)
[2017-12-20 12:00] VITALS: BP 102/64
[2017-12-20] MEDS: PIPERACILLIN /TAZOBACTAM 3.375 G in IV NS 0.9% 50 ML IV SCH ×2 (14:45→22:12)
[2017-12-20 18:55] VITALS: BP 106/83
[2017-12-20 19:58] VITALS: BP 101/72
[2017-12-20] MEDS: ASCORBIC ACID 500 MG TABLET GT SCH (21:43)
[2017-12-20] MEDS: CYANOCOBALAMIN 500 MCG TABLET GT SCH (21:43)
[2017-12-20] MEDS: DULOXETINE HCL 20 MG CAPSULE.DR GT SCH (21:43)
[2017-12-20] MEDS: SENNOSIDES 8.6 MG TABLET GT SCH (21:43)
[2017-12-21 00:25] VITALS: BP 100/61
[2017-12-21] MEDS: ALBUTEROL HALF STRENGTH 1.25 MG/3 ML VIAL.NEB NEB SCH ×4 (02:12→19:41)
[2017-12-21] MEDS: IPRATROPIUM NEB FS 0.5 MG/2.5 ML AMPUL.NEB NEB SCH ×4 (02:12→19:41)
[2017-12-21] MEDS: LEVOTHYROXINE SODIUM 25 MCG TABLET GT SCH (05:36)
[2017-12-21] MEDS: OMEPRAZOLE 20 MG CAPSULE.DR GT SCH (05:36)
[2017-12-21] MEDS: PIPERACILLIN /TAZOBACTAM 3.375 G in IV NS 0.9% 50 ML IV SCH ×2 (05:46→21:44)
[2017-12-21 06:12] VITALS: BP 118/62
[2017-12-21 07:20] VITALS: BP 116/49
[2017-12-21] MEDS: FERROUS SULFATE - FOR SA ONLY 330 MG/7.5 ML UDC GT SCH (08:48)
[2017-12-21] MEDS: METOCLOPRAMIDE HCL 10 MG/10 ML UDC GT SCH ×3 (08:48→17:00)
[2017-12-21] MEDS: MECLIZINE HCL 12.5 MG TABLET GT SCH ×2 (08:48→21:00)
[2017-12-21] MEDS: HYDROGEN PEROXIDE 480 ML BOTTLE TP SCH ×2 (08:48→21:00)
[2017-12-21] MEDS: POLYETHYLENE GLYCOL 3350 17 GM POWD.PACK GT SCH (08:48)
[2017-12-21] MEDS: Z GUARD REMEDY 4 OZ OINT TP SCH ×2 (08:48→21:00)
[2017-12-21] MEDS: ACETAMINOPHEN 650 MG/20 ML UDC- FOR SA PATIENTS ONLY GT PRN (09:46)
[2017-12-21 12:16] VITALS: BP 132/72
[2017-12-21 18:00] VITALS: BP 100/56
[2017-12-21] MEDS: FIBERSOURCE HN 1,000 ML BOTTLE GT PRN (18:21)
[2017-12-21] MEDS: CYANOCOBALAMIN 500 MCG TABLET GT SCH (21:00)
[2017-12-21] MEDS: ASCORBIC ACID 500 MG TABLET GT SCH (21:00)
[2017-12-21] MEDS: SENNOSIDES 8.6 MG TABLET GT SCH (21:00)
[2017-12-21] MEDS: DULOXETINE HCL 20 MG CAPSULE.DR GT SCH (22:00)
[2017-12-21 22:58] VITALS: BP 118/58
[2017-12-22] VITALS: BP 111/65
[2017-12-22] MEDS: IPRATROPIUM NEB FS 0.5 MG/2.5 ML AMPUL.NEB NEB SCH ×4 (01:53→19:53)
[2017-12-22] MEDS: ALBUTEROL HALF STRENGTH 1.25 MG/3 ML VIAL.NEB NEB SCH ×4 (01:53→19:53)
[2017-12-22] MEDS: LEVOTHYROXINE SODIUM 25 MCG TABLET GT SCH (05:17)
[2017-12-22] MEDS: OMEPRAZOLE 20 MG CAPSULE.DR GT SCH (05:17)
[2017-12-22 06:00] VITALS: BP 120/62
[2017-12-22] MEDS: PIPERACILLIN /TAZOBACTAM 3.375 G in IV NS 0.9% 50 ML IV SCH ×3 (06:26→22:08)
[2017-12-22 08:00] VITALS: BP 99/58
[2017-12-22] MEDS: METOCLOPRAMIDE HCL 10 MG/10 ML UDC GT SCH ×3 (08:54→17:20)
[2017-12-22] MEDS: HYDROGEN PEROXIDE 480 ML BOTTLE TP SCH ×2 (08:54→20:20)
[2017-12-22] MEDS: MECLIZINE HCL 12.5 MG TABLET GT SCH ×2 (08:54→20:20)
[2017-12-22] MEDS: FERROUS SULFATE - FOR SA ONLY 330 MG/7.5 ML UDC GT SCH (08:54)
[2017-12-22] MEDS: POLYETHYLENE GLYCOL 3350 17 GM POWD.PACK GT SCH (08:54)
[2017-12-22] MEDS: Z GUARD REMEDY 4 OZ OINT TP SCH ×2 (08:55→20:20)
[2017-12-22 12:00] VITALS: BP 128/63
[2017-12-22] MEDS: FIBERSOURCE HN 1,000 ML BOTTLE GT PRN (17:28)
[2017-12-22] MEDS: TRAMADOL HCL 50 MG TABLET GT PRN (17:28)
[2017-12-22 18:00] VITALS: BP 105/50
[2017-12-22] MEDS: SENNOSIDES 8.6 MG TABLET GT SCH (20:20)
[2017-12-22] MEDS: CYANOCOBALAMIN 500 MCG TABLET GT SCH (20:20)
[2017-12-22] MEDS: ASCORBIC ACID 500 MG TABLET GT SCH (20:20)
[2017-12-22] MEDS: DULOXETINE HCL 20 MG CAPSULE.DR GT SCH (21:06)
[2017-12-22 23:49] VITALS: BP 118/57
[2017-12-23] MEDS: ALBUTEROL HALF STRENGTH 1.25 MG/3 ML VIAL.NEB NEB SCH ×4 (01:03→20:27)
[2017-12-23] MEDS: IPRATROPIUM NEB FS 0.5 MG/2.5 ML AMPUL.NEB NEB SCH ×4 (01:03→20:27)
[2017-12-23 01:20] VITALS: BP 120/66
[2017-12-23] MEDS: OMEPRAZOLE 20 MG CAPSULE.DR GT SCH (05:22)
[2017-12-23] MEDS: LEVOTHYROXINE SODIUM 25 MCG TABLET GT SCH (05:22)
[2017-12-23] MEDS: MAGNESIUM HYDROXIDE 30 ML UDC GT PRN (05:23)
[2017-12-23] MEDS: PIPERACILLIN /TAZOBACTAM 3.375 G in IV NS 0.9% 50 ML IV SCH (06:00)
[2017-12-23 06:12] VITALS: BP 122/66
[2017-12-23 07:33] VITALS: BP 141/69
[2017-12-23] MEDS: FERROUS SULFATE - FOR SA ONLY 330 MG/7.5 ML UDC GT SCH (08:49)
[2017-12-23] MEDS: MECLIZINE HCL 12.5 MG TABLET GT SCH ×2 (08:49→20:37)
[2017-12-23] MEDS: METOCLOPRAMIDE HCL 10 MG/10 ML UDC GT SCH ×3 (08:49→17:15)
[2017-12-23] MEDS: HYDROGEN PEROXIDE 480 ML BOTTLE TP SCH ×2 (08:49→20:37)
[2017-12-23] MEDS: POLYETHYLENE GLYCOL 3350 17 GM POWD.PACK GT SCH (08:49)
[2017-12-23] MEDS: Z GUARD REMEDY 4 OZ OINT TP SCH ×2 (08:49→20:37)
[2017-12-23 12:00] VITALS: BP 137/67
[2017-12-23] MEDS: ACETAMINOPHEN 650 MG/20 ML UDC- FOR SA PATIENTS ONLY GT PRN (17:15)
[2017-12-23 18:56] VITALS: BP 112/64
[2017-12-23] MEDS: SENNOSIDES 8.6 MG TABLET GT SCH (20:37)
[2017-12-23] MEDS: ASCORBIC ACID 500 MG TABLET GT SCH (20:37)
[2017-12-23] MEDS: CYANOCOBALAMIN 500 MCG TABLET GT SCH (20:37)
[2017-12-23] MEDS: DULOXETINE HCL 20 MG CAPSULE.DR GT SCH (21:00)
[2017-12-23 22:04] VITALS: BP 120/71
[2017-12-24 00:10] VITALS: BP 128/70
[2017-12-24] MEDS: IPRATROPIUM NEB FS 0.5 MG/2.5 ML AMPUL.NEB NEB SCH ×4 (02:47→20:12)
[2017-12-24] MEDS: ALBUTEROL HALF STRENGTH 1.25 MG/3 ML VIAL.NEB NEB SCH ×4 (02:47→20:12)
[2017-12-24] MEDS: OMEPRAZOLE 20 MG CAPSULE.DR GT SCH (05:10)
[2017-12-24] MEDS: LEVOTHYROXINE SODIUM 25 MCG TABLET GT SCH (05:10)
[2017-12-24] MEDS: FIBERSOURCE HN 1,000 ML BOTTLE GT PRN (05:10)
[2017-12-24 06:15] VITALS: BP 125/71
[2017-12-24 07:31] VITALS: BP 151/95
[2017-12-24] MEDS: POLYETHYLENE GLYCOL 3350 17 GM POWD.PACK GT SCH (09:29)
[2017-12-24] MEDS: HYDROGEN PEROXIDE 480 ML BOTTLE TP SCH ×2 (09:29→20:18)
[2017-12-24] MEDS: MECLIZINE HCL 12.5 MG TABLET GT SCH ×2 (09:29→20:17)
[2017-12-24] MEDS: Z GUARD REMEDY 4 OZ OINT TP SCH ×2 (09:29→20:18)
[2017-12-24] MEDS: METOCLOPRAMIDE HCL 10 MG/10 ML UDC GT SCH ×3 (09:29→16:43)
[2017-12-24] MEDS: FERROUS SULFATE - FOR SA ONLY 330 MG/7.5 ML UDC GT SCH (09:29)
[2017-12-24 13:58] VITALS: BP 118/65
[2017-12-24 18:49] VITALS: BP 115/70
[2017-12-24 19:31] VITALS: BP 130/72
[2017-12-24] MEDS: CYANOCOBALAMIN 500 MCG TABLET GT SCH (20:16)
[2017-12-24] MEDS: SENNOSIDES 8.6 MG TABLET GT SCH (20:17)
[2017-12-24] MEDS: ASCORBIC ACID 500 MG TABLET GT SCH (20:18)
[2017-12-24] MEDS: DULOXETINE HCL 20 MG CAPSULE.DR GT SCH (22:04)
[2017-12-25 00:01] VITALS: BP 122/74
[2017-12-25] MEDS: IPRATROPIUM NEB FS 0.5 MG/2.5 ML AMPUL.NEB NEB SCH ×4 (02:07→20:11)
[2017-12-25] MEDS: ALBUTEROL HALF STRENGTH 1.25 MG/3 ML VIAL.NEB NEB SCH ×4 (02:07→20:11)
[2017-12-25] MEDS: OMEPRAZOLE 20 MG CAPSULE.DR GT SCH (05:18)
[2017-12-25] MEDS: LEVOTHYROXINE SODIUM 25 MCG TABLET GT SCH (05:18)
[2017-12-25] MEDS: FIBERSOURCE HN 1,000 ML BOTTLE GT PRN (06:07)
[2017-12-25 06:12] VITALS: BP 157/76
[2017-12-25] MEDS: FERROUS SULFATE - FOR SA ONLY 330 MG/7.5 ML UDC GT SCH (08:41)
[2017-12-25] MEDS: MECLIZINE HCL 12.5 MG TABLET GT SCH ×2 (08:41→20:18)
[2017-12-25] MEDS: HYDROGEN PEROXIDE 480 ML BOTTLE TP SCH ×2 (08:41→20:19)
[2017-12-25] MEDS: METOCLOPRAMIDE HCL 10 MG/10 ML UDC GT SCH ×3 (08:41→17:09)
[2017-12-25] MEDS: Z GUARD REMEDY 4 OZ OINT TP SCH ×2 (08:41→20:19)
[2017-12-25] MEDS: POLYETHYLENE GLYCOL 3350 17 GM POWD.PACK GT SCH (08:41)
[2017-12-25 12:23] VITALS: BP 102/53
[2017-12-25 16:39] VITALS: BP 113/69
[2017-12-25 18:29] VITALS: BP 145/87
[2017-12-25 19:32] VITALS: BP 128/82
[2017-12-25] MEDS: SENNOSIDES 8.6 MG TABLET GT SCH (20:18)
[2017-12-25] MEDS: CYANOCOBALAMIN 500 MCG TABLET GT SCH (20:18)
[2017-12-25] MEDS: ASCORBIC ACID 500 MG TABLET GT SCH (20:19)
[2017-12-25] MEDS: DULOXETINE HCL 20 MG CAPSULE.DR GT SCH (21:41)
[2017-12-26 00:33] VITALS: BP 148/77
[2017-12-26] MEDS: IPRATROPIUM NEB FS 0.5 MG/2.5 ML AMPUL.NEB NEB SCH ×4 (00:33→19:25)
[2017-12-26] MEDS: ALBUTEROL HALF STRENGTH 1.25 MG/3 ML VIAL.NEB NEB SCH ×4 (00:33→19:25)
[2017-12-26] MEDS: OMEPRAZOLE 20 MG CAPSULE.DR GT SCH (05:22)
[2017-12-26] MEDS: LEVOTHYROXINE SODIUM 25 MCG TABLET GT SCH (05:22)
[2017-12-26 06:04] VITALS: BP 135/74
[2017-12-26 07:57] VITALS: BP 142/63
[2017-12-26] MEDS: HYDROGEN PEROXIDE 480 ML BOTTLE TP SCH ×2 (08:38→20:59)
[2017-12-26] MEDS: FERROUS SULFATE - FOR SA ONLY 330 MG/7.5 ML UDC GT SCH (08:38)
[2017-12-26] MEDS: METOCLOPRAMIDE HCL 10 MG/10 ML UDC GT SCH ×3 (08:38→17:24)
[2017-12-26] MEDS: Z GUARD REMEDY 4 OZ OINT TP SCH ×2 (08:38→20:59)
[2017-12-26] MEDS: MECLIZINE HCL 12.5 MG TABLET GT SCH ×2 (08:38→20:58)
[2017-12-26] MEDS: POLYETHYLENE GLYCOL 3350 17 GM POWD.PACK GT SCH (08:38)
[2017-12-26 15:12] VITALS: BP 129/73
[2017-12-26] MEDS: ACETAMINOPHEN W/ CODEINE#3 1 EA TABLET GT PRN (17:27)
[2017-12-26 18:41] VITALS: BP 107/59
[2017-12-26 19:33] VITALS: BP 128/67
[2017-12-26] MEDS: CYANOCOBALAMIN 500 MCG TABLET GT SCH (20:58)
[2017-12-26] MEDS: SENNOSIDES 8.6 MG TABLET GT SCH (20:58)
[2017-12-26] MEDS: ASCORBIC ACID 500 MG TABLET GT SCH (20:59)
[2017-12-26] MEDS: DULOXETINE HCL 20 MG CAPSULE.DR GT SCH (21:44)
[2017-12-26] MEDS: FIBERSOURCE HN 1,000 ML BOTTLE GT PRN (23:38)
[2017-12-27] VITALS: BP 114/62
[2017-12-27] MEDS: ALBUTEROL HALF STRENGTH 1.25 MG/3 ML VIAL.NEB NEB SCH ×4 (01:20→19:30)
[2017-12-27] MEDS: IPRATROPIUM NEB FS 0.5 MG/2.5 ML AMPUL.NEB NEB SCH ×4 (01:20→19:30)
[2017-12-27] MEDS: LEVOTHYROXINE SODIUM 25 MCG TABLET GT SCH (05:22)
[2017-12-27] MEDS: OMEPRAZOLE 20 MG CAPSULE.DR GT SCH (05:22)
[2017-12-27 06:19] VITALS: BP 122/60
[2017-12-27 07:54] VITALS: BP 101/55
[2017-12-27] MEDS: MECLIZINE HCL 12.5 MG TABLET GT SCH ×2 (08:34→21:08)
[2017-12-27] MEDS: POLYETHYLENE GLYCOL 3350 17 GM POWD.PACK GT SCH (08:34)
[2017-12-27] MEDS: METOCLOPRAMIDE HCL 10 MG/10 ML UDC GT SCH ×3 (08:34→16:40)
[2017-12-27] MEDS: FERROUS SULFATE - FOR SA ONLY 330 MG/7.5 ML UDC GT SCH (08:34)
[2017-12-27] MEDS: Z GUARD REMEDY 4 OZ OINT TP SCH ×2 (08:35→21:09)
[2017-12-27] MEDS: HYDROGEN PEROXIDE 480 ML BOTTLE TP SCH ×2 (08:35→21:09)
[2017-12-27 15:16] VITALS: BP 101/55
[2017-12-27 18:36] VITALS: BP 118/68
[2017-12-27] MEDS: FIBERSOURCE HN 1,000 ML BOTTLE GT PRN (18:52)
[2017-12-27 21:00] VITALS: BP 99/63
[2017-12-27] MEDS: CYANOCOBALAMIN 500 MCG TABLET GT SCH (21:08)
[2017-12-27] MEDS: SENNOSIDES 8.6 MG TABLET GT SCH (21:08)
[2017-12-27] MEDS: DULOXETINE HCL 20 MG CAPSULE.DR GT SCH (21:09)
[2017-12-27] MEDS: ASCORBIC ACID 500 MG TABLET GT SCH (21:09)
[2017-12-27] MEDS: ACETAMINOPHEN 650 MG/20 ML UDC- FOR SA PATIENTS ONLY GT PRN (22:02)
[2017-12-28] VITALS (7 sets, daily range): BP systolic 99–146; BP diastolic 62–82
[2017-12-28] MEDS: ALBUTEROL HALF STRENGTH 1.25 MG/3 ML VIAL.NEB NEB SCH ×4 (01:30→20:46)
[2017-12-28] MEDS: IPRATROPIUM NEB FS 0.5 MG/2.5 ML AMPUL.NEB NEB SCH ×4 (01:30→20:46)
[2017-12-28] MEDS: OMEPRAZOLE 20 MG CAPSULE.DR GT SCH (05:32)
[2017-12-28] MEDS: LEVOTHYROXINE SODIUM 25 MCG TABLET GT SCH (05:32)
[2017-12-28] MEDS: METOCLOPRAMIDE HCL 10 MG/10 ML UDC GT SCH ×3 (09:00→16:44)
[2017-12-28] MEDS: POLYETHYLENE GLYCOL 3350 17 GM POWD.PACK GT SCH (09:00)
[2017-12-28] MEDS: MECLIZINE HCL 12.5 MG TABLET GT SCH ×2 (09:00→21:00)
[2017-12-28] MEDS: FERROUS SULFATE - FOR SA ONLY 330 MG/7.5 ML UDC GT SCH (09:00)
[2017-12-28] MEDS: HYDROGEN PEROXIDE 480 ML BOTTLE TP SCH ×2 (09:01→21:00)
[2017-12-28] MEDS: Z GUARD REMEDY 4 OZ OINT TP SCH ×2 (09:01→21:00)
[2017-12-28] MEDS: FIBERSOURCE HN 1,000 ML BOTTLE GT PRN (16:40)
[2017-12-28] MEDS: CYANOCOBALAMIN 500 MCG TABLET GT SCH (21:00)
[2017-12-28] MEDS: SENNOSIDES 8.6 MG TABLET GT SCH (21:00)
[2017-12-28] MEDS: ASCORBIC ACID 500 MG TABLET GT SCH (21:00)
[2017-12-28] MEDS: DULOXETINE HCL 20 MG CAPSULE.DR GT SCH (21:01)
[2017-12-29] VITALS (7 sets, daily range): BP systolic 110–154; BP diastolic 41–113
[2017-12-29] MEDS: IPRATROPIUM NEB FS 0.5 MG/2.5 ML AMPUL.NEB NEB SCH ×4 (02:56→20:08)
[2017-12-29] MEDS: ALBUTEROL HALF STRENGTH 1.25 MG/3 ML VIAL.NEB NEB SCH ×4 (02:56→20:08)
[2017-12-29] MEDS: OMEPRAZOLE 20 MG CAPSULE.DR GT SCH (05:11)
[2017-12-29] MEDS: LEVOTHYROXINE SODIUM 25 MCG TABLET GT SCH (05:12)
[2017-12-29] MEDS: METOCLOPRAMIDE HCL 10 MG/10 ML UDC GT SCH ×3 (09:18→17:35)
[2017-12-29] MEDS: POLYETHYLENE GLYCOL 3350 17 GM POWD.PACK GT SCH (09:18)
[2017-12-29] MEDS: FERROUS SULFATE - FOR SA ONLY 330 MG/7.5 ML UDC GT SCH (09:18)
[2017-12-29] MEDS: MECLIZINE HCL 12.5 MG TABLET GT SCH ×2 (09:19→20:35)
[2017-12-29] MEDS: Z GUARD REMEDY 4 OZ OINT TP SCH ×2 (09:19→20:36)
[2017-12-29] MEDS: HYDROGEN PEROXIDE 480 ML BOTTLE TP SCH ×2 (10:15→20:36)
[2017-12-29] MEDS: SENNOSIDES 8.6 MG TABLET GT SCH (20:35)
[2017-12-29] MEDS: CYANOCOBALAMIN 500 MCG TABLET GT SCH (20:36)
[2017-12-29] MEDS: ASCORBIC ACID 500 MG TABLET GT SCH (20:36)
[2017-12-29] MEDS: DULOXETINE HCL 20 MG CAPSULE.DR GT SCH (21:15)
[2017-12-30 00:16] VITALS: BP 128/74
[2017-12-30] MEDS: ALBUTEROL HALF STRENGTH 1.25 MG/3 ML VIAL.NEB NEB SCH ×4 (02:09→19:26)
[2017-12-30] MEDS: IPRATROPIUM NEB FS 0.5 MG/2.5 ML AMPUL.NEB NEB SCH ×4 (02:09→19:26)
[2017-12-30] MEDS: OMEPRAZOLE 20 MG CAPSULE.DR GT SCH (05:09)
[2017-12-30] MEDS: LEVOTHYROXINE SODIUM 25 MCG TABLET GT SCH (05:09)
[2017-12-30 06:15] VITALS: BP 124/69
[2017-12-30 07:17] LABS: BASOPHILS % (AUTO) 0.2 % (0.0-2.0); EOSINOPHILS # (AUTO) 0.2 /CMM (0.0-0.7); EOSINOPHILS % (AUTO) 1.3 % (0.0-6.0); HEMATOCRIT 32 % (33-45); HEMOGLOBIN 10.5 g/dL (11.5-14.8); LYMPHOCYTES # (AUTO) 1.8 /CMM (0.8-4.8); MEAN CORPUSCULAR HEMOGLOBIN 30 PG (26.0-33.0); MEAN CORPUSCULAR HGB CONC 33 g/dl (31.0-36.0); MEAN CORPUSCULAR VOLUME 89 fL (82-100); MONOCYTES # (AUTO) 0.9 /CMM (0.1-1.30); NEUTROPHILS # (AUTO) 9.7 /CMM (1.8-8.9); NEUTROPHILS % (AUTO) 77.5 % (43.0-81.0); PLATELET COUNT (AUTO) 397 /CMM (150-450); RED BLOOD CELL COUNT(AUTO) 3.56 MIL/uL (4.0-5.2); WHITE BLOOD COUNT (AUTO) 12.5 K/uL (4.3-11.0)
[2017-12-30 07:37] LABS: INR 0.96 (0.87-1.13)
[2017-12-30 08:26] VITALS: BP 129/69
[2017-12-30] MEDS: MECLIZINE HCL 12.5 MG TABLET GT SCH ×2 (09:00→21:12)
[2017-12-30] MEDS: POLYETHYLENE GLYCOL 3350 17 GM POWD.PACK GT SCH (09:00)
[2017-12-30] MEDS: METOCLOPRAMIDE HCL 10 MG/10 ML UDC GT SCH ×3 (09:00→17:09)
[2017-12-30] MEDS: FERROUS SULFATE - FOR SA ONLY 330 MG/7.5 ML UDC GT SCH (09:00)
[2017-12-30] MEDS: Z GUARD REMEDY 4 OZ OINT TP SCH ×2 (09:45→21:12)
[2017-12-30] MEDS: HYDROGEN PEROXIDE 480 ML BOTTLE TP SCH ×2 (09:45→21:12)
[2017-12-30] MEDS ORDERED: SUCCINYLCHOLINE CHLORIDE 20 MG/ML VIAL ONE (10:59)
[2017-12-30] MEDS ORDERED: EPHEDRINE SULFATE IV 50MG VIAL ONE (11:09)
[2017-12-30 12:00] VITALS: BP 119/68
[2017-12-30] MEDS: ACETAMINOPHEN 650 MG/20 ML UDC- FOR SA PATIENTS ONLY GT PRN (17:09)
[2017-12-30] MEDS: FIBERSOURCE HN 1,000 ML BOTTLE GT PRN (17:10)
[2017-12-30 18:33] VITALS: BP 115/85
[2017-12-30 20:32] VITALS: BP 141/54
[2017-12-30] MEDS: SENNOSIDES 8.6 MG TABLET GT SCH (21:12)
[2017-12-30] MEDS: CYANOCOBALAMIN 500 MCG TABLET GT SCH (21:12)
[2017-12-30] MEDS: DULOXETINE HCL 20 MG CAPSULE.DR GT SCH (21:12)
[2017-12-30] MEDS: ASCORBIC ACID 500 MG TABLET GT SCH (21:12)
[2017-12-31 00:01] VITALS: BP 132/64
[2017-12-31] MEDS: ALBUTEROL HALF STRENGTH 1.25 MG/3 ML VIAL.NEB NEB SCH ×4 (01:21→19:45)
[2017-12-31] MEDS: IPRATROPIUM NEB FS 0.5 MG/2.5 ML AMPUL.NEB NEB SCH ×4 (01:21→19:45)
[2017-12-31] MEDS: ACETAMINOPHEN 650 MG/20 ML UDC- FOR SA PATIENTS ONLY GT PRN (02:21)
[2017-12-31] MEDS: OMEPRAZOLE 20 MG CAPSULE.DR GT SCH (05:24)
[2017-12-31] MEDS: LEVOTHYROXINE SODIUM 25 MCG TABLET GT SCH (05:24)
[2017-12-31 06:08] VITALS: BP 124/70
[2017-12-31 07:55] VITALS: BP 124/78
[2017-12-31] MEDS: FERROUS SULFATE - FOR SA ONLY 330 MG/7.5 ML UDC GT SCH (09:52)
[2017-12-31] MEDS: METOCLOPRAMIDE HCL 10 MG/10 ML UDC GT SCH ×3 (09:52→16:49)
[2017-12-31] MEDS: MECLIZINE HCL 12.5 MG TABLET GT SCH ×2 (09:52→21:09)
[2017-12-31] MEDS: POLYETHYLENE GLYCOL 3350 17 GM POWD.PACK GT SCH (09:52)
[2017-12-31] MEDS: HYDROGEN PEROXIDE 480 ML BOTTLE TP SCH ×2 (09:52→21:09)
[2017-12-31] MEDS: Z GUARD REMEDY 4 OZ OINT TP SCH ×2 (09:52→21:09)
[2017-12-31] MEDS: FIBERSOURCE HN 1,000 ML BOTTLE GT PRN (12:04)
[2017-12-31 14:53] VITALS: BP 124/78
[2017-12-31 18:44] VITALS: BP 134/74
[2017-12-31 19:17] VITALS: BP 121/66
[2017-12-31] MEDS: CYANOCOBALAMIN 500 MCG TABLET GT SCH (21:09)
[2017-12-31] MEDS: SENNOSIDES 8.6 MG TABLET GT SCH (21:09)
[2017-12-31] MEDS: ASCORBIC ACID 500 MG TABLET GT SCH (21:09)
[2017-12-31] MEDS: DULOXETINE HCL 20 MG CAPSULE.DR GT SCH (21:09)
[2018-01-01 00:48] VITALS: BP 124/68
[2018-01-01] MEDS: ALBUTEROL HALF STRENGTH 1.25 MG/3 ML VIAL.NEB NEB SCH ×4 (01:39→19:30)
[2018-01-01] MEDS: IPRATROPIUM NEB FS 0.5 MG/2.5 ML AMPUL.NEB NEB SCH ×4 (01:39→19:30)
[2018-01-01] MEDS: OMEPRAZOLE 20 MG CAPSULE.DR GT SCH (05:25)
[2018-01-01] MEDS: LEVOTHYROXINE SODIUM 25 MCG TABLET GT SCH (05:25)
[2018-01-01] MEDS: FIBERSOURCE HN 1,000 ML BOTTLE GT PRN (05:26)
[2018-01-01 06:11] VITALS: BP 122/72
[2018-01-01 08:01] VITALS: BP 145/72
[2018-01-01] MEDS: HYDROGEN PEROXIDE 480 ML BOTTLE TP SCH ×2 (09:12→20:48)
[2018-01-01] MEDS: METOCLOPRAMIDE HCL 10 MG/10 ML UDC GT SCH ×3 (09:12→17:06)
[2018-01-01] MEDS: FERROUS SULFATE - FOR SA ONLY 330 MG/7.5 ML UDC GT SCH (09:12)
[2018-01-01] MEDS: Z GUARD REMEDY 4 OZ OINT TP SCH ×2 (09:12→20:48)
[2018-01-01] MEDS: POLYETHYLENE GLYCOL 3350 17 GM POWD.PACK GT SCH (09:12)
[2018-01-01] MEDS: MECLIZINE HCL 12.5 MG TABLET GT SCH ×2 (09:12→20:46)
[2018-01-01 16:01] VITALS: BP 130/70
[2018-01-01 18:12] VITALS: BP 126/69
[2018-01-01] MEDS: ASCORBIC ACID 500 MG TABLET GT SCH (20:48)
[2018-01-01] MEDS: SENNOSIDES 8.6 MG TABLET GT SCH (20:49)
[2018-01-01] MEDS: CYANOCOBALAMIN 500 MCG TABLET GT SCH (20:53)
[2018-01-01] MEDS: DULOXETINE HCL 20 MG CAPSULE.DR GT SCH (21:09)
[2018-01-01 22:48] VITALS: BP 153/82
[2018-01-02] VITALS: BP 130/68
[2018-01-02] MEDS: ALBUTEROL HALF STRENGTH 1.25 MG/3 ML VIAL.NEB NEB SCH ×4 (02:20→19:42)
[2018-01-02] MEDS: IPRATROPIUM NEB FS 0.5 MG/2.5 ML AMPUL.NEB NEB SCH ×4 (02:20→19:42)
[2018-01-02 06:00] VITALS: BP 124/70
[2018-01-02] MEDS: OMEPRAZOLE 20 MG CAPSULE.DR GT SCH (06:04)
[2018-01-02] MEDS: LEVOTHYROXINE SODIUM 25 MCG TABLET GT SCH (06:04)
[2018-01-02 08:22] VITALS: BP 101/65
[2018-01-02] MEDS: MECLIZINE HCL 12.5 MG TABLET GT SCH ×2 (08:37→20:53)
[2018-01-02] MEDS: POLYETHYLENE GLYCOL 3350 17 GM POWD.PACK GT SCH (08:37)
[2018-01-02] MEDS: METOCLOPRAMIDE HCL 10 MG/10 ML UDC GT SCH ×3 (08:37→16:18)
[2018-01-02] MEDS: Z GUARD REMEDY 4 OZ OINT TP SCH ×2 (08:37→20:53)
[2018-01-02] MEDS: FERROUS SULFATE - FOR SA ONLY 330 MG/7.5 ML UDC GT SCH (08:37)
[2018-01-02] MEDS: HYDROGEN PEROXIDE 480 ML BOTTLE TP SCH ×2 (08:37→20:53)
[2018-01-02 13:35] VITALS: BP 131/75
[2018-01-02 18:14] VITALS: BP 136/78
[2018-01-02] MEDS: ASCORBIC ACID 500 MG TABLET GT SCH (20:53)
[2018-01-02] MEDS: SENNOSIDES 8.6 MG TABLET GT SCH (20:53)
[2018-01-02] MEDS: CYANOCOBALAMIN 500 MCG TABLET GT SCH (20:53)
[2018-01-02] MEDS: PIPERACILLIN /TAZOBACTAM 3.375 G in IV D5W 100 ML IV SCH (21:00)
[2018-01-02] MEDS: DULOXETINE HCL 20 MG CAPSULE.DR GT SCH (21:44)
[2018-01-03 00:44] VITALS: BP 130/72
[2018-01-03] MEDS: FIBERSOURCE HN 1,000 ML BOTTLE GT PRN (01:29)
[2018-01-03] MEDS: ALBUTEROL HALF STRENGTH 1.25 MG/3 ML VIAL.NEB NEB SCH ×5 (01:32→20:01)
[2018-01-03] MEDS: IPRATROPIUM NEB FS 0.5 MG/2.5 ML AMPUL.NEB NEB SCH ×4 (01:32→20:01)
[2018-01-03] MEDS: PIPERACILLIN /TAZOBACTAM 3.375 G in IV D5W 100 ML IV SCH (03:00)
[2018-01-03] MEDS: LEVOTHYROXINE SODIUM 25 MCG TABLET GT SCH (05:18)
[2018-01-03] MEDS: OMEPRAZOLE 20 MG CAPSULE.DR GT SCH (05:18)
[2018-01-03 06:14] VITALS: BP 126/70
[2018-01-03 07:53] LABS: BASOPHILS % (AUTO) 0.1 % (0.0-2.0); EOSINOPHILS % (AUTO) 0.1 % (0.0-6.0); HEMATOCRIT 35 % (33-45); HEMOGLOBIN 11.4 g/dL (11.5-14.8); LYMPHOCYTES # (AUTO) 0.8 /CMM (0.8-4.8); LYMPHOCYTES % (AUTO) 3.9 % (20.0-44.0); MEAN CORPUSCULAR HEMOGLOBIN 30 PG (26.0-33.0); MEAN CORPUSCULAR HGB CONC 33 g/dl (31.0-36.0); MEAN CORPUSCULAR VOLUME 91 fL (82-100); MONOCYTES # (AUTO) 1.5 /CMM (0.1-1.30); MONOCYTES % (AUTO) 6.9 % (2.0-12.0); NEUTROPHILS # (AUTO) 18.8 /CMM (1.8-8.9); PLATELET COUNT (AUTO) 482 /CMM (150-450); RDW COEFFICIENT OF VARIATION 16.2 (11.5-15.0); RED BLOOD CELL COUNT(AUTO) 3.82 MIL/uL (4.0-5.2); WHITE BLOOD COUNT (AUTO) 21.1 K/uL (4.3-11.0)
[2018-01-03 07:56] VITALS: BP 149/80
[2018-01-03] MEDS: MECLIZINE HCL 12.5 MG TABLET GT SCH (08:17)
[2018-01-03] MEDS: POLYETHYLENE GLYCOL 3350 17 GM POWD.PACK GT SCH (08:17)
[2018-01-03] MEDS: FERROUS SULFATE - FOR SA ONLY 330 MG/7.5 ML UDC GT SCH (08:17)
[2018-01-03] MEDS: METOCLOPRAMIDE HCL 10 MG/10 ML UDC GT SCH ×3 (08:17→16:26)
[2018-01-03] MEDS: TRAMADOL HCL 50 MG TABLET GT PRN (08:18)
[2018-01-03 08:58] LABS: CARBON DIOXIDE 33 mmol/L (21-32); CHLORIDE 105 mmol/L (98-107); CREATININE 1.2 mg/dL (0.6-1.3); GLUCOSE 184 mg/dL (74-106); MAGNESIUM 2.5 mg/dL (1.8-2.4); PHOSPHORUS 5.2 mg/dL (2.5-4.9); POTASSIUM 4.7 mmol/L (3.5-5.1); SODIUM SERUM 147 mmol/L (136-145); UREA NITROGEN, BLOOD 35 mg/dL (7-18)
[2018-01-03] MEDS: Z GUARD REMEDY 4 OZ OINT TP SCH (09:00)
[2018-01-03] MEDS: HYDROGEN PEROXIDE 480 ML BOTTLE TP SCH (09:00)
[2018-01-03 09:17] LABS: BAND % (MANUAL) 1 % (0.0-5.0); EOSINOPHILS % (MANUAL) 2 % (0-4); LYMPHOCYTES % (MANUAL) 14 % (16-48); MONOCYTES % (MANUAL) 12 % (0-11.0); NEUTROPHILS % (MANUAL) 71 (42-76)
[2018-01-03] MEDS: PIPERACILLIN /TAZOBACTAM 2.25 G in IV D5W 50 ML IV SCH ×2 (12:45→19:00)
[2018-01-03] MEDS ORDERED: SUCRALFATE 1 G/10 ML UDC GT SCH (13:00)
[2018-01-03] MEDS ORDERED: IV NS 0.9% 1,000 ML IV PRN (14:30)
[2018-01-03] MEDS: ACETAMINOPHEN W/ CODEINE#3 1 EA TABLET GT PRN (16:28)
[2018-01-03] MEDS ORDERED: METOCLOPRAMIDE HCL 10 MG/2 ML VIAL IV SCH (18:00)
[2018-01-03] MEDS ORDERED: IV D5/ 0.9% NACL 1,000 ML IV PRN (18:00)
[2018-01-03 18:30] VITALS: BP 149/80
[2018-01-03 20:30] VITALS: BP 132/68
[2018-01-03] MEDS ORDERED: PANTOPRAZOLE 40 MG/PACK PACK GT SCH (21:00)
[2018-01-04] MEDS ORDERED: NUTR150016 GT (08:41)
[2018-01-04] MEDS ORDERED: CLON1PAT2 TD (08:41)
[2018-01-04] MEDS ORDERED: SUCR1ORA4 GT (08:41)
[2018-01-04] MEDS ORDERED: ACET650S11 RC (08:41)
[2018-01-04] MEDS ORDERED: SIME40DR2 GT (08:41)
[2018-01-04] MEDS ORDERED: PIPE2.255 IV (08:41)
[2018-01-04] MEDS ORDERED: METO5VIA6 IV (08:41)
[2018-01-04] MEDS ORDERED: PANT40VI IV (08:41)
[2018-01-04] MEDS ORDERED: ACET1TAB12 GT (08:41)
[2018-01-04] MEDS ORDERED: PANTOPRAZOLE 40 MG/PACK PACK GT SCH (09:00)
[2018-01-04] MEDS ORDERED: PANTOPRAZOLE 40 MG VIAL IV SCH (09:00)
[2018-01-05 20:30] VITALS: BP 106/68
[2018-01-11] MEDS ORDERED: PIPE3.376 IV (08:41)
[2018-01-11] MEDS ORDERED: CARV6.252 GT (08:41)
[2018-01-11] MEDS ORDERED: RXVAN XX (08:41)
[2018-01-11] MEDS ORDERED: MUPI22OI7 (08:41)
[2018-01-15 20:16] VITALS: BP 129/72
[2018-02-08] MEDS ORDERED: TUBERCULIN,PURIF.PROT.DERIV. 5 TU/0.1 ML DISP.SYRIN ID SCH (09:00)
== END 2018-01-16 08:00 | disposition short-term general hospital (02) | DRG 207 ==
LOC: SA
PROVIDERS: ADMIT Internal Medicine Nephrology; ATTEND Internal Medicine Nephrology
PROC: 5A1955Z Respiratory Ventilation, Greater than 96 Consecutive Hours (ICD-10-PCS; principal; 2017-11-13)
DX: J96.11 Chronic respiratory failure with hypoxia (principal); G93.40 Encephalopathy, unspecified; A41.9 Sepsis, unspecified organism; G61.0 Guillain-Barre syndrome; E46 Unspecified protein-calorie malnutrition; K31.6 Fistula of stomach and duodenum; Z99.11 Dependence on respirator [ventilator] status; N39.0 Urinary tract infection, site not specified; F33.9 Major depressive disorder, recurrent, unspecified; K66.8 Other specified disorders of peritoneum; R13.10 Dysphagia, unspecified; D64.9 Anemia, unspecified; Z93.1 Gastrostomy status; Z93.0 Tracheostomy status; E03.9 Hypothyroidism, unspecified; Z87.01 Personal history of pneumonia (recurrent); E78.5 Hyperlipidemia, unspecified; I10 Essential (primary) hypertension; Z87.440 Personal history of urinary (tract) infections; B35.1 Tinea unguium; F39 Unspecified mood [affective] disorder; E66.01 Morbid (severe) obesity due to excess calories; Z68.24 Body mass index [BMI] 24.0-24.9, adult
CPT/HCPCS: 31720; 36415; 71045-TC; 74018; 80048-TC; 80202-TC; 81000-TC; 83735-TC; 84100-TC; 85025-TC; 85730-TC; 87040-TC; 87086-TC; 87186-TC; 93971-TC; 94002; 94003-TC; 94760-TC; 94762-TC; 94799-TC; 99082-TC; A4216; A4606; A4623; A7526; J0330; J2543; J2704; J2765; J3370; J3490; J7030; J7042; J7060; Q9963; Z7610

== ENCOUNTER 2018-01-03 21:04 | Inpatient (IN) | payer MEDICARE, OTHER ==
[~2018-01-03] VITALS: Ht 154.9 cm; Wt 44.9 kg
[2018-01-03 21:05] VITALS: BP 152/100
--- NOTE | 2018-01-03 21:10 | NUR ---
PT BB NURSE FROM SUBACUTE UNIT FOR FEVER AND TACHYCARDIA. PT IS AAOX0. RECTAL TEMP OF 104.1. PT IS ON VENT WITH TRACH. RESP EVEN AND LABORED/TACHYPNIC. DISTRESS NOTED IN PT. PT PLACED ON MONITOR AND POX.AWAITING MD FOR EVAL.
[2018-01-03] MEDS ORDERED: VANCOMYCIN 1 GM VIAL ONE (21:24)
[2018-01-03] MEDS ORDERED: PIPERACILLIN /TAZOBACTAM 3.375 G VIAL IV ONE (21:24)
--- NOTE | 2018-01-03 21:24 | NUR ---
PT REC'D TRACHED SHILEY 6 VIA AMBU BAG 15L. PT PLACED ON NOTED SETTINGS GIVEN FROM BEAN RT. VENT PLUGGED INTO RED OUTLET. AMBU BAG BEDSIDE. ALARMS ARE SET AND AUDIBLE. WILL CONTINUE TO MONITOR Addendum: 01/03/18 at 2125 by DILCIA UNDERWOOD RT Amended: Links added.
[2018-01-03] MEDS ORDERED: ACETAMINOPHEN 650 MG/SUPP.RECT RC ONE ×2 (21:25→21:30)
[2018-01-03] MEDS ORDERED: VANCOMYCIN 1 GM in IV D5W 250 ML IV ONE (21:30)
[2018-01-03] MEDS ORDERED: IV NS 0.9% 1,000 ML BAG IV ONE (21:30)
[2018-01-03] MEDS ORDERED: PIPERACILLIN /TAZOBACTAM 3.375 G in IV D5W 50 ML IV ONE (21:30)
--- NOTE | 2018-01-03 22:00 | NUR ---
ICE HOUSE SUPERVISOR BEDSIDE FOR BLOOD DRAW
--- NOTE | 2018-01-03 22:10 | NUR ---
MD NIRMAL MADERA BEDSIDE FOR EVAL
--- NOTE | 2018-01-03 22:15 | NUR ---
VENT SETTINGS AC 14 450 40 PEEP 5
[2018-01-03] MEDS ORDERED: IOHEXOL-300 100 ML VIAL IV ONE (22:18)
[2018-01-03] MEDS ORDERED: CT SWABBABLE VALVE TRANS SET 1 EA INFUS.SET MC ONE (22:18)
[2018-01-03] MEDS ORDERED: ONDANSETRON HCL/PF 4 MG/2 ML VIAL ONE (22:19)
[2018-01-03] MEDS ORDERED: HYDROMORPHONE INJ 0.5 MG/0.5 ML SYRINGE ONE (22:19)
[2018-01-03 22:29] LABS: BASOPHILS % (AUTO) 0.1 % (0.0-2.0); HEMATOCRIT 32 % (33-45); HEMOGLOBIN 10.4 g/dL (11.5-14.8); LYMPHOCYTES % (AUTO) 3.5 % (20.0-44.0); MEAN CORPUSCULAR HEMOGLOBIN 29 PG (26.0-33.0); MEAN CORPUSCULAR HGB CONC 32 g/dl (31.0-36.0); MEAN CORPUSCULAR VOLUME 90 fL (82-100); MONOCYTES % (AUTO) 6.5 % (2.0-12.0); NEUTROPHILS % (AUTO) 89.9 % (43.0-81.0); PLATELET COUNT (AUTO) 414 /CMM (150-450); RED BLOOD CELL COUNT(AUTO) 3.59 MIL/uL (4.0-5.2)
[2018-01-03 22:30] LABS: APPEARANCE,URINE CLOUDY (CLEAR); BILIRUBIN,URINE NEGATIVE (NEGATIVE); BLOOD, URINE 3+ Ery/uL (NEGATIVE); COLOR,URINE YELLOW (YELLOW); KETONES,URINE NEGATIVE (NEGATIVE); LEUKOCYTE ESTERASE ,URINE 2+ (NEGATIVE); NITRITE, URINE NEGATIVE (NEGATIVE); PROTEIN,URINE 2+ mg/dl (NEGATIVE); UGLUCOSE NEGATIVE (NEGATIVE); UROBILINOGEN,URINE 0.2 EU/dL (0.2)
[2018-01-03 22:30] LABS: LYMPHOCYTES # (AUTO) 0.6 /CMM (0.8-4.8); MONOCYTES # (AUTO) 1.2 /CMM (0.1-1.30); NEUTROPHILS # (AUTO) 16.2 /CMM (1.8-8.9)
[2018-01-03] MEDS ORDERED: ONDANSETRON HCL/PF - ER 4 MG/2 ML VIAL IV ONE (22:30)
[2018-01-03] MEDS ORDERED: HYDROMORPHONE 1 MG/1 ML DISP.SYRIN IV ONE (22:30)
[2018-01-03 22:35] LABS: BACTERIA,URINE Many /HPF (None Seen); RBC,URINE 21-50 /HPF (0-2); SQUAMOUS EPITHELIAL CELL,UR Few /HPF (None Seen); WBC,URINE 21-50 /HPF (0-3); YEAST,URINE Hyphal filaments /HPF (None Seen)
[2018-01-03 22:36] LABS: CALCIUM OXALATE CRYSTALS,UR Few /HPF (None Seen)
[2018-01-03 22:40] LABS: CALCIUM, SERUM 9.8 mg/dL (8.5-10.1); CARBON DIOXIDE 30 mmol/L (21-32); CHLORIDE 110 mmol/L (98-107); CREATININE 1.2 mg/dL (0.6-1.3); GLUCOSE 239 mg/dL (74-106); POTASSIUM 4.5 mmol/L (3.5-5.1); SODIUM SERUM 149 mmol/L (136-145); UREA NITROGEN, BLOOD 60 mg/dL (7-18)
[2018-01-03 22:44] LABS: INR 1.1 (0.87-1.13)
[2018-01-03 22:45] LABS: ALANINE AMINOTRANSFERASE 30 U/L (12-78); ALKALINE PHOSPHATASE 74 U/L (46-116); ASPARTATE AMINOTRANSFERASE 31 U/L (15-37); BILIRUBIN,DIRECT 0.1 mg/dL (0.0-0.2); BILIRUBIN,TOTAL 0.3 mg/dL (0.2-1.0); TOTAL PROTEIN, SERUM 8.1 g/dL (6.4-8.2)
[2018-01-03 22:47] LABS: TROPONIN I 0.179 ng/mL (0.00-0.056)
--- NOTE | 2018-01-03 22:50 | NUR ---
TRUCK DRIVER INSTRUCTOR BEDISDE FOR PT TRANSPORT TO CT. RT BEDSIDE FOR PT TRANSPORT TO CT.
--- NOTE | 2018-01-03 22:50 | NUR ---
GASTRIC OCCULT SPECIMEN COLLECTED
--- NOTE | 2018-01-03 23:14 | NUR ---
PT BACK FROM CT.
[2018-01-04] VITALS (8 sets, daily range): BP systolic 105–138; BP diastolic 44–104
[2018-01-04 00:33] LABS: ABG BASE EXCESS 1.4 mmol/L; ABG OXYGEN SATURATION 97.9 % (92.0-98.5); ABG PCO2 29.4 mmHg (35.0-45.0); ABG PH 7.525 (7.350-7.450); ABG PO2 127.7 mmHg (75.0-100.0); AaDO2 123.7 mmHg; COHb 0.3 % (0.5-1.5); MetHb 0.6 % (0.0-1.5); SITE, ABG Right Radial; VENT MODE, BG AC 14 450 40% +5
--- NOTE | 2018-01-04 00:47 | NUR ---
RN NOTES RECEIVED REPORT FROM ELECTRICAL TECHNICIAN INSTRUCTOR HOP
--- NOTE | 2018-01-04 00:50 | NUR ---
GAVE REPORT TO MADDY FORD FOR LOCO.
--- NOTE | 2018-01-04 01:10 | NUR ---
RN NOTES PT ARRIVED FROM ER VIA BED. OBTUNDED, ON VENT WITH SETTINGS AC 14, TV 450, FIO2 40%, PEEP 5, SHILEY 6, SATURATING WELL, NO S/S OF RESP DISTRESS. SINUS TACH ON THE MONITOR, HR 100-110'S. PEG IS CLAMPED, COFFEE-GROUND FLUID COMING OUT OF STOMA IS NOTED. GIL INTACT. LEFT WRIST 20G AND RIGHT HAND 22G BOTH FLUSHED AND PATENT, NO S/S OF INFILTRATION/INFECTION, DRESSINGS CDI. SKIN CHECKED, PICS TAKEN AND FILED. BED LOW AND LOCKED, SIDERAILS UP, CALL LIGHT WITHIN REACH, BED ALARM ON. WILL MONITOR
[2018-01-04] MEDS: IV D5/0.45 NACL 1,000 ML IV PRN ×2 (01:55→12:07)
[2018-01-04] MEDS ORDERED: IV D5/ 0.9% NACL 1,000 ML IV PRN (02:00)
[2018-01-04] MEDS ORDERED: PANTOPRAZOLE 40 MG VIAL IV SCH ×2 (02:00→09:00)
[2018-01-04] MEDS: ACETAMINOPHEN 650 MG/SUPP.RECT RC PRN ×2 (03:34→18:13)
[2018-01-04] MEDS ORDERED: PIPERACILLIN /TAZOBACTAM 3.375 G VIAL IV ONE (05:11)
[2018-01-04] MEDS: PIPERACILLIN /TAZOBACTAM 3.375 G in IV D5W 50 ML IV SCH ×4 (05:19→23:04)
--- NOTE | 2018-01-04 06:20 | NUR ---
RN CLOSING NOTES PT REMAINS STABLE OF THE MOMENT. ALL DUE MEDS GIVEN, AM CARE PROVIDED. WILL ENDORSE LOCO TO AM RN
[2018-01-04 06:23] LABS: BASOPHILS % (AUTO) 0.1 % (0.0-2.0); HEMATOCRIT 28 % (33-45); LYMPHOCYTES # (AUTO) 1.2 /CMM (0.8-4.8); LYMPHOCYTES % (AUTO) 7.2 % (20.0-44.0); MEAN CORPUSCULAR HEMOGLOBIN 30 PG (26.0-33.0); MEAN CORPUSCULAR HGB CONC 33 g/dl (31.0-36.0); MEAN CORPUSCULAR VOLUME 92 fL (82-100); MONOCYTES # (AUTO) 1.5 /CMM (0.1-1.30); MONOCYTES % (AUTO) 9.1 % (2.0-12.0); NEUTROPHILS # (AUTO) 13.9 /CMM (1.8-8.9); NEUTROPHILS % (AUTO) 83.6 % (43.0-81.0); PLATELET COUNT (AUTO) 303 /CMM (150-450); RDW COEFFICIENT OF VARIATION 17.2 (11.5-15.0); RED BLOOD CELL COUNT(AUTO) 3.04 MIL/uL (4.0-5.2); WHITE BLOOD COUNT (AUTO) 16.6 K/uL (4.3-11.0)
[2018-01-04 06:39] LABS: CALCIUM, SERUM 8.4 mg/dL (8.5-10.1); CARBON DIOXIDE 32 mmol/L (21-32); CHLORIDE 114 mmol/L (98-107); CREATININE 0.8 mg/dL (0.6-1.3); GLUCOSE 215 mg/dL (74-106); MAGNESIUM 2.3 mg/dL (1.8-2.4); PHOSPHORUS 3.1 mg/dL (2.5-4.9); POTASSIUM 4.1 mmol/L (3.5-5.1); SODIUM SERUM 151 mmol/L (136-145); UREA NITROGEN, BLOOD 37 mg/dL (7-18)
--- NOTE | 2018-01-04 07:00 | NUR ---
elodia initial note received pt in bed, obtunded, response to pain/touch stimuli, unable to track or follow commands, pt is on mech vent, shiley #6 ac 14 tv 450 fio2 40% peep5, sating well, no s/s of resp.distress or discomfort noted at this time, pt is on tele monitor showing sr @98 bpm, no s/s of chest pain or discomfort noted at this time, pt has gtube, connected to lis, no gastric fluid noted at this time, pt is currently npo at this time, pt has f/c draining yellow urine to gravity, pt is noted with multiple skin issues, wound treatments ack and will be carried out, pt has l wrist #20g, r hand#22g, running d51/2ns@75ml/hr, c/d/i/patent, flushing well, no s/s of infection/ infiltration noted at this time, all safety measures in place at all times, call light within easy reach, will monitor pt closely for changes
[2018-01-04] MEDS ORDERED: METO5VIA6 IV (08:41)
[2018-01-04] MEDS ORDERED: PANT40VI IV (08:41)
[2018-01-04] MEDS ORDERED: CLON1PAT2 TD (08:41)
[2018-01-04] MEDS ORDERED: ACET650S11 RC (08:41)
[2018-01-04] MEDS ORDERED: NUTR150016 GT (08:41)
[2018-01-04] MEDS ORDERED: SUCR1ORA4 GT (08:41)
[2018-01-04] MEDS ORDERED: PIPE2.255 IV (08:41)
[2018-01-04] MEDS ORDERED: SIME40DR2 GT (08:41)
[2018-01-04] MEDS ORDERED: ACET1TAB12 GT (08:41)
[2018-01-04] MEDS ORDERED: ALBUTEROL HALF STRENGTH 1.25 MG/3 ML VIAL.NEB IH PRN (09:00)
[2018-01-04] MEDS ORDERED: TRAMADOL HCL 50 MG TABLET GT PRN (09:00)
[2018-01-04] MEDS ORDERED: ACETAMINOPHEN 650 MG/SUPP.RECT RC PRN (09:00)
[2018-01-04] MEDS ORDERED: IPRATROPIUM NEB FS 0.5 MG/2.5 ML AMPUL.NEB IH PRN (09:00)
[2018-01-04] MEDS ORDERED: CLONIDINE HCL 0.1 MG TABLET GT PRN (09:00)
[2018-01-04] MEDS: MECLIZINE HCL 12.5 MG TABLET GT SCH ×2 (09:00→21:10)
[2018-01-04] MEDS: POLYETHYLENE GLYCOL 3350 17 GM POWD.PACK GT SCH (09:00)
[2018-01-04] MEDS ORDERED: ACETAMINOPHEN LIQUID 325 MG/10.1 ML UDC GT PRN (09:00)
[2018-01-04] MEDS ORDERED: MAGNESIUM HYDROXIDE 30 ML UDC GT PRN (09:00)
[2018-01-04] MEDS: LEVOTHYROXINE SODIUM 25 MCG TABLET GT SCH (09:15)
[2018-01-04] MEDS ORDERED: ONDANSETRON 4 MG TAB.RAPDIS GT PRN (09:30)
[2018-01-04] MEDS: CARVEDILOL 6.25 MG TABLET GT SCH ×2 (09:30→21:00)
[2018-01-04 10:15] LABS: IRON, SERUM 27 ug/dl (50-175); TOTAL IRON BINDING CAPACITY 139 ug/dl (250-450)
[2018-01-04 10:29] LABS: FERRITIN 704 ng/mL (8-388)
[2018-01-04] MEDS: METOCLOPRAMIDE HCL 10 MG/2 ML VIAL IV SCH ×3 (12:00→23:37)
[2018-01-04] MEDS ORDERED: PIPERACILLIN /TAZOBACTAM 2.25 G VIAL IV SCH (12:00)
[2018-01-04] MEDS: SUCRALFATE 1 G/10 ML UDC GT SCH ×2 (12:07→21:08)
--- NOTE | 2018-01-04 12:36 | NUR ---
elodia note daughter madisyn at bedside, all questions and concerns answered
[2018-01-04] MEDS: IPRATROPIUM NEB FS 0.5 MG/2.5 ML AMPUL.NEB IH SCH ×2 (13:21→20:27)
[2018-01-04] MEDS: ALBUTEROL HALF STRENGTH 1.25 MG/3 ML VIAL.NEB IH SCH ×2 (13:21→20:27)
--- NOTE | 2018-01-04 14:50 | NUR ---
VENT CHANGES MADE. VT:400. WILL CONTINUE TO MONITOR PT. Addendum: 01/04/18 at 1506 by ATA PALM RT Amended: Links added.
[2018-01-04] MEDS: CLONIDINE HCL 0.2MG/24H PTWK 1 EA PATCH TD SCH (14:59)
--- NOTE | 2018-01-04 15:01 | NUR ---
MADDY NOTE- CLONIDINE PATCH PLACED ON LEFT ARM
--- NOTE | 2018-01-04 16:25 | NUR ---
RECEIVED PT TRACHED W/NOHELIA #6 ON MECHANICAL VENTILATOR ON NOTED SETTINGS PER MD. VENT PLUGGED INTO RED OUTLET. AMBU BAG AT BEDSIDE. ALARMS ARE SET AND AUDIBLE. PT BREATH SOUNDS BILATERAL COARSE. TRACH SUCTIONED GREEN, RIBEIRO SECRETIONS THIN AND THICK, NOTIFIED RAMONA OTTO. WILL CONTINUE TO MONITOR PT.
[2018-01-04] MEDS: PANTOPRAZOLE 40 MG VIAL IV SCH (17:11)
--- NOTE | 2018-01-04 20:00 | NUR ---
Rn initial note Received pt in bed, obtunded, response to pain/touch stimuli, unable to track or follow commands, pt is on [facility] vent, shisergo #6 ac 14 tv 400 fio2 40% peep5, sating well, no s/s of resp.distress or discomfort noted at this time, pt is on tele monitor showing sr @98 bpm, no s/s of chest pain or discomfort noted at this time, pt has gtube, connected to lis, A small amount of gastric fluid noted at this time, pt is currently npo at this time, pt has f/c draining yellow urine to gravity, pt has l wrist #20g, r hand#22g, running d51/2ns@75ml/hr, c/d/i/patent. Will cont to monitor.
[2018-01-04] MEDS ORDERED: FEE PK DOSING 1 MIN EA MC ONE (20:26)
[2018-01-04] MEDS: ASCORBIC ACID 500 MG TABLET GT SCH (21:08)
[2018-01-04] MEDS: VANCOMYCIN 0.75 GM in IV D5W 250 ML IV SCH (21:33)
[2018-01-04] MEDS: FLUCONAZOLE IN NS 100 MG in PREMIX 1 EA IV SCH ×2 (21:33)
[2018-01-04] MEDS ORDERED: DULOXETINE HCL 20 MG CAPSULE.DR GT SCH (22:00)
[2018-01-04] MEDS ORDERED: METOCLOPRAMIDE HCL 10 MG/2 ML VIAL IV SCH (23:00)
[2018-01-04] MEDS ORDERED: METOCLOPRAMIDE HCL 10 MG/2 ML VIAL ONE (23:21)
--- NOTE | 2018-01-04 23:30 | NUR ---
RN NOTES DR AUGUSTINE CAME TO SEE PT AT 2300 FOR A CONSULT, MD LOCKHART HE IS RECOMMENDING A US GUIDED GALLBLADDER DRAINAGE. PT IS KEPT NPO WITH IV FLUIDS ORDERED. RN WILL CONT TO MONITOR AND ENDORSE TO AM RN. Addendum: 01/05/18 at 2115 by SIGRID NICHOLAS RN RN NOTES PLEASE DISREGARD NOTES WRITTEN ON THE WRONG PT.
[2018-01-05] VITALS (8 sets, daily range): BP systolic 98–143; BP diastolic 47–95
[2018-01-05] MEDS: ALBUTEROL HALF STRENGTH 1.25 MG/3 ML VIAL.NEB IH SCH ×4 (01:47→20:08)
[2018-01-05] MEDS: IPRATROPIUM NEB FS 0.5 MG/2.5 ML AMPUL.NEB IH SCH ×4 (01:47→20:08)
[2018-01-05] MEDS: IV D5/0.45 NACL 1,000 ML IV PRN (05:05)
[2018-01-05] MEDS: PIPERACILLIN /TAZOBACTAM 3.375 G in IV D5W 50 ML IV SCH ×4 (05:07→23:46)
[2018-01-05] MEDS: LEVOTHYROXINE SODIUM 25 MCG TABLET GT SCH (05:07)
[2018-01-05] MEDS: SUCRALFATE 1 G/10 ML UDC GT SCH ×3 (05:07→22:09)
[2018-01-05] MEDS: METOCLOPRAMIDE HCL 10 MG/2 ML VIAL IV SCH ×4 (06:00→23:46)
--- NOTE | 2018-01-05 06:00 | NUR ---
rn notes 0600 dose of Reglan was not administered, as ordered by pharmacy, Reglan not available due to shortage
--- NOTE | 2018-01-05 06:00 | NUR ---
Rn closing note Pt in bed, obtunded, response to pain/touch stimuli, unable to track or follow commands, pt is on [facility] vent, shiley #6 ac 14 tv 400 fio2 40% peep5, sating well, no s/s of resp.distress or discomfort noted at this time, pt is on tele monitor showing sr @98 bpm, no s/s of chest pain or discomfort noted at this time, pt has gtube, connected to lis, A small amount of gastric fluid noted at this time, pt is currently npo at this time, pt has f/c draining yellow urine to gravity, pt has l wrist #20g, r hand#22g, running d51/2ns@75ml/hr, c/d/i/patent. Will endorse to am RAMONA.
[2018-01-05 06:46] LABS: BASOPHILS % (AUTO) 0.3 % (0.0-2.0); EOSINOPHILS % (AUTO) 0.3 % (0.0-6.0); HEMATOCRIT 23 % (33-45); HEMOGLOBIN 7.6 g/dL (11.5-14.8); LYMPHOCYTES # (AUTO) 1.1 /CMM (0.8-4.8); LYMPHOCYTES % (AUTO) 9.3 % (20.0-44.0); MEAN CORPUSCULAR HEMOGLOBIN 30 PG (26.0-33.0); MEAN CORPUSCULAR HGB CONC 33 g/dl (31.0-36.0); MEAN CORPUSCULAR VOLUME 92 fL (82-100); MONOCYTES # (AUTO) 0.9 /CMM (0.1-1.30); MONOCYTES % (AUTO) 7.6 % (2.0-12.0); NEUTROPHILS % (AUTO) 82.5 % (43.0-81.0); PLATELET COUNT (AUTO) 214 /CMM (150-450); RDW COEFFICIENT OF VARIATION 16.9 (11.5-15.0); RED BLOOD CELL COUNT(AUTO) 2.53 MIL/uL (4.0-5.2); WHITE BLOOD COUNT (AUTO) 12.1 K/uL (4.3-11.0)
[2018-01-05 07:00] LABS: ALANINE AMINOTRANSFERASE 33 U/L (12-78); ALBUMIN 2.3 g/dL (3.4-5.0); ALKALINE PHOSPHATASE 51 U/L (46-116); ASPARTATE AMINOTRANSFERASE 32 U/L (15-37); BILIRUBIN,TOTAL 0.4 mg/dL (0.2-1.0); CALCIUM, SERUM 8.3 mg/dL (8.5-10.1); CARBON DIOXIDE 29 mmol/L (21-32); CHLORIDE 114 mmol/L (98-107); CREATININE 0.6 mg/dL (0.6-1.3); GLUCOSE 136 mg/dL (74-106); MAGNESIUM 2.4 mg/dL (1.8-2.4); PHOSPHORUS 1.9 mg/dL (2.5-4.9); SODIUM SERUM 150 mmol/L (136-145); TOTAL PROTEIN, SERUM 6.2 g/dL (6.4-8.2); UREA NITROGEN, BLOOD 25 mg/dL (7-18)
--- NOTE | 2018-01-05 07:27 | NUR ---
RN INITIAL NOTE PATIENT RECEIVED IN BED , OBTUNDED, PT REMAINS IN STABLE CONDITION PT ON VENT TOLERATING VENT SETTING WELL AT THIS TIME - NOHELIA # 6 AC 14 TV 400 FIO2 40% PEEP 5 , PATIENT SATING WELL NO S/S OF DISTRESS NOTED , PT SR ON MONITOR PT REMAINS NPO AT THIS TIME -G- TUBE CONNECTED TO LOW INTERMITTED SUCTION. F/C IN PLACE DRAINAGE YELLOW URINE RN WILL CONTINUE TO MONITOR THROUGHOUT THE DAY SAFETY MEASURES IN PLACE CALL LIGHT WITHIN REACH
[2018-01-05] MEDS: POLYETHYLENE GLYCOL 3350 17 GM POWD.PACK GT SCH (07:49)
[2018-01-05] MEDS: ACETAMINOPHEN 650 MG/20.3 ML UDC GT PRN (07:49)
[2018-01-05] MEDS: MECLIZINE HCL 12.5 MG TABLET GT SCH ×2 (07:49→22:09)
[2018-01-05] MEDS: CARVEDILOL 6.25 MG TABLET GT SCH ×2 (07:50→21:00)
[2018-01-05] MEDS: PANTOPRAZOLE 40 MG VIAL IV SCH ×2 (07:52→16:51)
--- NOTE | 2018-01-05 08:02 | NUR ---
RN NOTE AM MEDICATION GIVEN DUE TO ELEVATED B/P OF 186/110 HR 82 OR 96% , RT AND NURSING STAFF ASSESSED PATIENT BREATHING TREATMENT ADMINSTERED WELL RN WILL CONTINUE TO MONITOR AND REASSESS VITALS IN 15 MIN
--- NOTE | 2018-01-05 10:09 | NUR ---
WOUND CARE CONSULT: PT PRESENTS WITH INCONTINENCE OF STOOL. CURRENT [place] SCORE IS 9. PT ON FIRST STEP MATTRESS. PT IS VENT-DEPENDENT AND IMMOBILE. WILL SEE PRN. ALL SKIN PROTECTION MEASURES IN PLACE AND DISCUSSED WITH NURSING STAFF. IN AGREEMENT WITH PLAN OF CARE. Addendum: 01/05/18 at 1011 by PIETRO UMAÑA WNDNU Amended: Links added.
[2018-01-05] MEDS: VANCOMYCIN 0.75 GM in IV D5W 250 ML IV SCH (16:51)
--- NOTE | 2018-01-05 18:14 | NUR ---
RN CLOSING NOTES PT REMAINS STABLE THROUGHOUT THE SHIFT . ALL DUE MEDS GIVEN, AM CARE PROVIDED. PATIENT UNABLE TO MAKE NEEDS KNOWN PATIENT TOLERATED VENT SETTINGS WELL PATIENT REMAINS NPO PATIENT SAFETY MEASURES IN PLACE RN WILL ENDORSE LOCO TO PM RN
--- NOTE | 2018-01-05 20:00 | NUR ---
RN INITIAL NOTE PATIENT RECEIVED IN BED , OBTUNDED, PT REMAINS IN STABLE CONDITION PT ON VENT TOLERATING VENT SETTING WELL AT THIS TIME - NOHELIA # 6 AC 14 TV 400 FIO2 40% PEEP 5 , PATIENT SATING WELL NO S/S OF DISTRESS NOTED , PT SR ON MONITOR PT REMAINS NPO AT THIS TIME -G- TUBE CONNECTED TO LOW INTERMITTED SUCTION. F/C IN PLACE DRAINAGE YELLOW URINE. RN WILL CONTINUE TO MONITOR, SAFETY MEASURES IN PLACE CALL LIGHT WITHIN REACH
[2018-01-05] MEDS: POTASSIUM PHOSPHATE MM 7.5 MMOL in IV D5W 100 ML IV SCH ×2 (20:23→23:43)
[2018-01-05] MEDS: FLUCONAZOLE IN NS 100 MG in PREMIX 1 EA IV SCH ×2 (22:07)
[2018-01-05] MEDS: ASCORBIC ACID 500 MG TABLET GT SCH (22:09)
[2018-01-06] VITALS: BP_SYST 114; BP_SYST 120; BP_DIAS 47; BP_DIAS 63
[2018-01-06] MEDS: IPRATROPIUM NEB FS 0.5 MG/2.5 ML AMPUL.NEB IH SCH ×4 (01:57→20:04)
[2018-01-06] MEDS: ALBUTEROL HALF STRENGTH 1.25 MG/3 ML VIAL.NEB IH SCH ×4 (01:57→20:04)
[2018-01-06 04:00] VITALS: BP 118/55
[2018-01-06] MEDS: PIPERACILLIN /TAZOBACTAM 3.375 G in IV D5W 50 ML IV SCH ×4 (05:10→23:11)
[2018-01-06] MEDS: SUCRALFATE 1 G/10 ML UDC GT SCH ×3 (05:11→21:29)
[2018-01-06] MEDS: LEVOTHYROXINE SODIUM 25 MCG TABLET GT SCH (05:11)
[2018-01-06] MEDS: ACETAMINOPHEN 650 MG/20.3 ML UDC GT PRN (05:11)
[2018-01-06] MEDS: METOCLOPRAMIDE HCL 10 MG/2 ML VIAL IV SCH ×4 (05:13→23:12)
--- NOTE | 2018-01-06 06:32 | NUR ---
RN CLOSING NOTES PT REMAINS STABLE THROUGHOUT THE SHIFT . ALL DUE MEDS GIVEN, PM CARE PROVIDED. PATIENT UNABLE TO MAKE NEEDS KNOWN PATIENT TOLERATED VENT SETTINGS WELL PATIENT REMAINS NPO PATIENT SAFETY MEASURES IN PLACE RN WILL ENDORSE LOCO TO AM RN
[2018-01-06 07:03] LABS: CALCIUM, SERUM 7.9 mg/dL (8.5-10.1); CARBON DIOXIDE 24 mmol/L (21-32); CHLORIDE 111 mmol/L (98-107); CREATININE 0.6 mg/dL (0.6-1.3); GLUCOSE 88 mg/dL (74-106); PHOSPHORUS 3.1 mg/dL (2.5-4.9); POTASSIUM 4.2 mmol/L (3.5-5.1); SODIUM SERUM 145 mmol/L (136-145); UREA NITROGEN, BLOOD 17 mg/dL (7-18)
--- NOTE | 2018-01-06 07:30 | NUR ---
TWISTING DEPARTMENT END FINDER AM NOTES RECEIVED IN BED , OBTUNDED, PT NOHELIA 6 TRACH TO MECHANICAL VENT, SETTING ORDERED, WELL TOLERATED, ,NO S/S OF DISTRESS NOTED , RESPIRATION EVEN AND UNLABORED, TELEMETRY READS SR HR 67, NO SIGNS OF PAIN, NPO AT THIS TIME -G- TUBE CONNECTED TO LOW INTERMITTED SUCTION. F/C IN PLACE DRAINAGE YELLOW URINE, ISOLATION PRECAUTION OBSERVED, WILL TURN AND REPOSITION Q 2HOURS, SAFETY MEASURES IN PLACE, CALL LIGHT WITHIN REACH , WILL CONTINUE TO MONITOR.
[2018-01-06 08:00] VITALS: BP 103/43
--- NOTE | 2018-01-06 09:30 | NUR ---
DOOR TO DOOR FUNDRAISING COLLECTOR NOTES DUE MEDS GIVEN
--- NOTE | 2018-01-06 10:06 | NUR ---
PAID SEARCH ANALYST NOTES VANCO IV STARTED
[2018-01-06] MEDS: MECLIZINE HCL 12.5 MG TABLET GT SCH ×2 (10:32→21:29)
[2018-01-06] MEDS: CARVEDILOL 6.25 MG TABLET GT SCH ×2 (10:33→21:30)
[2018-01-06] MEDS: PANTOPRAZOLE 40 MG VIAL IV SCH ×2 (10:34→17:08)
[2018-01-06] MEDS: VANCOMYCIN 0.75 GM in IV D5W 250 ML IV SCH (10:34)
[2018-01-06] MEDS: POLYETHYLENE GLYCOL 3350 17 GM POWD.PACK GT SCH (10:34)
--- NOTE | 2018-01-06 11:46 | NUR ---
PLUMBING DRAFTER NOTES ZOSYN IV STARTED
[2018-01-06 12:00] VITALS: BP 109/52
[2018-01-06 16:00] VITALS: BP 105/62
--- NOTE | 2018-01-06 17:08 | NUR ---
WINDSHIELD TECHNICIAN NOTES ZOSYN IV STARTED
[2018-01-06 17:22] LABS: BASOPHILS % (AUTO) 0.5 % (0.0-2.0); EOSINOPHILS # (AUTO) 0.3 /CMM (0.0-0.7); EOSINOPHILS % (AUTO) 3.7 % (0.0-6.0); LYMPHOCYTES # (AUTO) 1.3 /CMM (0.8-4.8); LYMPHOCYTES % (AUTO) 16.6 % (20.0-44.0); MEAN CORPUSCULAR HEMOGLOBIN 30 PG (26.0-33.0); MEAN CORPUSCULAR HGB CONC 33 g/dl (31.0-36.0); MEAN CORPUSCULAR VOLUME 91 fL (82-100); MONOCYTES # (AUTO) 0.7 /CMM (0.1-1.30); MONOCYTES % (AUTO) 8.8 % (2.0-12.0); NEUTROPHILS # (AUTO) 5.5 /CMM (1.8-8.9); NEUTROPHILS % (AUTO) 70.4 % (43.0-81.0); PLATELET COUNT (AUTO) 206 /CMM (150-450); RDW COEFFICIENT OF VARIATION 16.5 (11.5-15.0); RED BLOOD CELL COUNT(AUTO) 2.24 MIL/uL (4.0-5.2); WHITE BLOOD COUNT (AUTO) 7.8 K/uL (4.3-11.0)
[2018-01-06 17:41] LABS: HEMOGLOBIN 6.6 g/dL (11.5-14.8)
[2018-01-06 17:42] LABS: HEMATOCRIT 20 % (33-45)
[2018-01-06 17:47] LABS: RETICULOCYTE COUNT 2.6 % (0.6-2.5)
--- NOTE | 2018-01-06 17:53 | NUR ---
ROOFER METAL NOTES CRITICAL LAB RESULT HEMOGLOBIN 6.6. PLACED A CALL TO DR. CALVILLO VIA EXCHANGE, SPOKE WITH LOREE, PER HIM WILL REYNA RICHARD.
--- NOTE | 2018-01-06 18:38 | NUR ---
ENTERPRISE SECURITY ARCHITECT CLOSING NOTES PT IN BED , MADE COMFORTABLE, OBTUNDED, PT SHILEY 6 TRACH TO MECHANICAL VENT, SETTING ORDERED, WELL TOLERATED, ,NO S/S OF DISTRESS NOTED , RESPIRATION EVEN AND UNLABORED, TELEMETRY READS SR HR 72, NO SIGNS OF PAIN, RIGHT HAND G20 WITH 1/2 NS AT 75 ML/HR RUNNING, JOSE MIDLINE G18, FLUSHES WELL, CDI DRESSING, BOTH SITES CLEAR. NPO AT THIS TIME -G- TUBE CONNECTED TO LOW INTERMITTED SUCTION. 5 ML OUTPUT. F/C IN PLACE DRAINAGE YELLOW URINE, 325 ML OUTPUT. ISOLATION PRECAUTION OBSERVED, SAFETY PRECAUTIONS IMPLEMENTED: BED IN LOCKED, LOW POSITION WITH TWO SIDE RAILS UP. CALL LIGHT AND BELONGINGS WITHIN EASY REACH. TURNED AND REPOSITIONED Q 2 HOURS, Z GUARD AND MEPILEX TO SACRAL AREA, PM CARE DONE. ALL NEEDS MET. NO OTHER SIGNIFICANT CHANGE IN CONDITION. WILL ENDORSE TO NEXT SHIFT FOR LOCO. PER DR. CALVILLO - TO TRANSFUSE 1 UNIT PRBC.
[2018-01-06 20:00] VITALS: BP 89/48
--- NOTE | 2018-01-06 20:00 | NUR ---
RN INITIAL NOTES PT IN BED , MADE COMFORTABLE, OBTUNDED, PT SHILEY 6 TRACH TO MECHANICAL VENT, SETTING ORDERED, WELL TOLERATED, ,NO S/S OF DISTRESS NOTED , RESPIRATION EVEN AND UNLABORED, TELEMETRY READS SR HR 72, NO SIGNS OF PAIN, RIGHT HAND G20 WITH 1/2 NS AT 75 ML/HR RUNNING, JOSE MIDLINE G18, FLUSHES WELL, CDI DRESSING, BOTH SITES CLEAR. NPO AT THIS TIME -G- TUBE CONNECTED TO LOW INTERMITTED SUCTION. F/C IN PLACE DRAINAGE YELLOW URINE. ISOLATION PRECAUTION OBSERVED, SAFETY PRECAUTIONS.
[2018-01-06 20:17] LABS: THYROID STIMULATING HORMONE 5.194 uIU/mL (0.358-3.74); URIC ACID 1.8 mg/dL (2.6-7.2)
[2018-01-06] MEDS: ASCORBIC ACID 500 MG TABLET GT SCH (21:29)
[2018-01-06] MEDS: FLUCONAZOLE IN NS 100 MG in PREMIX 1 EA IV SCH ×2 (21:29)
--- NOTE | 2018-01-06 21:55 | NUR ---
PT RECEIVED TRACHED ON [facility] VENT W/ NOTED SETTING. ALARMS SET AND AUDIBLE. VENT TO RED OUTLET. AMBU BAG AT [facility]. TRACH PATENT AND SECURE VIA TRACH TIES. NO SOB OR RESP DISTRESS NOTED ON SHIFT Addendum: 01/06/18 at 2156 by KRISTEN ALEJANDRO RT Amended: Links added.
[2018-01-06 22:05] LABS: EOSINOPHILS % (MANUAL) 2 % (0-4); LYMPHOCYTES % (MANUAL) 14 % (16-48); MONOCYTES % (MANUAL) 8 % (0-11.0); NEUTROPHILS % (MANUAL) 76 (42-76)
[2018-01-07] VITALS (8 sets, daily range): BP systolic 90–123; BP diastolic 44–60
[2018-01-07] MEDS: ALBUTEROL HALF STRENGTH 1.25 MG/3 ML VIAL.NEB IH SCH ×4 (01:18→19:34)
[2018-01-07] MEDS: IPRATROPIUM NEB FS 0.5 MG/2.5 ML AMPUL.NEB IH SCH ×4 (01:18→19:40)
[2018-01-07] MEDS: VANCOMYCIN 0.75 GM in IV D5W 250 ML IV SCH ×2 (03:42→16:38)
[2018-01-07] MEDS: PIPERACILLIN /TAZOBACTAM 3.375 G in IV D5W 50 ML IV SCH ×3 (05:09→17:36)
[2018-01-07] MEDS: SUCRALFATE 1 G/10 ML UDC GT SCH ×3 (05:10→21:00)
[2018-01-07] MEDS: LEVOTHYROXINE SODIUM 25 MCG TABLET GT SCH (05:10)
[2018-01-07] MEDS: METOCLOPRAMIDE HCL 10 MG/2 ML VIAL IV SCH ×3 (05:11→17:33)
--- NOTE | 2018-01-07 06:30 | NUR ---
RN CLOSING NOTES PT IN BED , MADE COMFORTABLE, OBTUNDED, PT SHILEY 6 TRACH TO MECHANICAL VENT, SETTING ORDERED, WELL TOLERATED, ,NO S/S OF DISTRESS NOTED , RESPIRATION EVEN AND UNLABORED, TELEMETRY READS SR HR 72, NO SIGNS OF PAIN, RIGHT HAND G20 WITH 1/2 NS S/L, JOSE MIDLINE G18, FLUSHES WELL, CDI DRESSING, BOTH SITES CLEAR. NPO AT THIS TIME -G- TUBE CONNECTED TO LOW INTERMITTED SUCTION. F/C IN PLACE DRAINAGE YELLOW URINE. TRANSFUSED PT 1UNIT PRBC, ISOLATION PRECAUTION OBSERVED, SAFETY PRECAUTIONS.WILL ENDORSE TO AM RN.
--- NOTE | 2018-01-07 07:10 | NUR ---
RN INITIAL NOTES: REC'D PT AWAKE ON BED, NOT IN ANY DISTRESS, OBTUNDED. ON MV VIA TRACH, SATING AT 100%. ON TELEMONITOR, SR. HAS FC PATENT & INTACT. HAS PEG, CONNECTED TO LOW INTERMITTENT SUCTION, MINIMAL PALE YELLOW GASTRIC RESIDUAL NOTED. HAS JOSE MIDLINE, PL W/ D5 11/2 NS X 75 CC/HR INFUSING WELL. PROVIDED COMFORT & SAFETY MEASURES. BED KEPT LOW & IN LOCKED POS. CALL LIGHT PLACED W/IN REACH, WILL CONTINUE TO MONITOR.
[2018-01-07 08:05] LABS: BASOPHILS % (AUTO) 0.4 % (0.0-2.0); EOSINOPHILS # (AUTO) 0.3 /CMM (0.0-0.7); EOSINOPHILS % (AUTO) 3.3 % (0.0-6.0); HEMATOCRIT 27 % (33-45); HEMOGLOBIN 8.9 g/dL (11.5-14.8); LYMPHOCYTES # (AUTO) 1.3 /CMM (0.8-4.8); LYMPHOCYTES % (AUTO) 16.2 % (20.0-44.0); MEAN CORPUSCULAR HEMOGLOBIN 30 PG (26.0-33.0); MEAN CORPUSCULAR HGB CONC 34 g/dl (31.0-36.0); MEAN CORPUSCULAR VOLUME 91 fL (82-100); MONOCYTES # (AUTO) 0.7 /CMM (0.1-1.30); MONOCYTES % (AUTO) 8.6 % (2.0-12.0); NEUTROPHILS # (AUTO) 5.8 /CMM (1.8-8.9); NEUTROPHILS % (AUTO) 71.5 % (43.0-81.0); PLATELET COUNT (AUTO) 184 /CMM (150-450); RDW COEFFICIENT OF VARIATION 15.9 (11.5-15.0); RED BLOOD CELL COUNT(AUTO) 2.94 MIL/uL (4.0-5.2); WHITE BLOOD COUNT (AUTO) 8.2 K/uL (4.3-11.0)
[2018-01-07 08:21] LABS: CALCIUM, SERUM 8.2 mg/dL (8.5-10.1); CARBON DIOXIDE 23 mmol/L (21-32); CHLORIDE 110 mmol/L (98-107); CREATININE 0.7 mg/dL (0.6-1.3); GLUCOSE 117 mg/dL (74-106); MAGNESIUM 2.2 mg/dL (1.8-2.4); PHOSPHORUS 2.7 mg/dL (2.5-4.9); POTASSIUM 3.3 mmol/L (3.5-5.1); SODIUM SERUM 142 mmol/L (136-145); UREA NITROGEN, BLOOD 12 mg/dL (7-18)
[2018-01-07] MEDS: PANTOPRAZOLE 40 MG VIAL IV SCH ×2 (08:28→17:33)
[2018-01-07] MEDS: CARVEDILOL 6.25 MG TABLET GT SCH ×2 (08:28→21:01)
[2018-01-07] MEDS: POLYETHYLENE GLYCOL 3350 17 GM POWD.PACK GT SCH (08:28)
[2018-01-07] MEDS: MECLIZINE HCL 12.5 MG TABLET GT SCH ×2 (08:29→21:01)
[2018-01-07] MEDS: Z GUARD REMEDY 4 OZ OINT TP PRN (08:32)
[2018-01-07] MEDS: POTASSIUM CL. PREMIX PERIPHER. 50 ML IV SCH ×4 (12:07→16:38)
[2018-01-07] MEDS: MUPIROCIN OINT 2% 22 GM TUBE SCH ×2 (13:33→21:02)
--- NOTE | 2018-01-07 14:28 | NUR ---
RN NOTES: NO ACUTE CHANGES NOTED W/IN SHIFT. REPORT GIVEN TO RAMONA PETERSON FOR LOCO.
--- NOTE | 2018-01-07 14:40 | NUR ---
RECEIVED REPORT FROM MADDY NURSE. PATIENT IS IN NO APPARENT DISTRESS. WILL CONTINUE TO MONITOR.
--- NOTE | 2018-01-07 15:07 | NUR ---
RN NOTES: REC'D TELEPHONE ORDERS FROM DR. RIVAS TO START PT ON TUBE FEEDING (FROM PREVIOUS SUBACUTE UNIT) FIBERSOURCE HN X 60 CC/HR X 20 HOURS. ONCE GOAL RATE IS REACH, DC IVF. ENDORSED TO RAMONA PETERSON.
[2018-01-07] MEDS ORDERED: FIBERSOURCE HN 1,000 ML BOTTLE GT PRN (15:30)
[2018-01-07] MEDS: FIBERSOURCE HN 1,000 ML BOTTLE GT PRN (15:46)
--- NOTE | 2018-01-07 18:15 | NUR ---
RT END OF THE SHIFT REPORT, PT. 77 Y OLD FEMALE REMAIN STABLE SINCE 0700 AWAKE, BUT NOT FOLLOWING COMMAND. TRACHED NOHELIA # 6 ON MECHANICAL VENT, WITH NOTED SETTINGS. EQUAL CHEST RISE NOTED, TRACH IN GOOD POSITION AND SECURE. ELENI VENT WELL T/O DAY B/S RHONCHI BILATERALLY AND SUX'D FOR MOD. AMT OF YELLOW SECRETIONS. TX'S GIVEN INLINE AND NO ADVERSE REACTION NOTED. VENT PLUGGED INTO RED OUTLET, AMBU BAG AT THE BEDSIDE. CONTINUE FOR CARE AND MONITORING, REPORT WILL PASS TO PM SHIFT. Addendum: 01/07/18 at 1820 by HI LA RT Amended: Links added.
--- NOTE | 2018-01-07 18:30 | NUR ---
MS RN CLOSING NOTES PATIENT IS RESTING IN BED IN NO APPARENT DISTRESS. BEDSIDE RAILS ARE UPX2. BED IS LOCKED AND LOWERED. CALL LIGHT IS WITHIN REACH. WILL ENDORSE CARE TO SHIRT MAKER NURSE FOR LOCO.
--- NOTE | 2018-01-07 20:00 | NUR ---
TELE 1 RN NOTE PT IN BED OBTUNDED. ON TRACH/VENT TOLERATING THE SETTINGS WELL. NO DISTRESS OR DISCOMFORT NOTED. NO S/S OF PAIN NOTED. ON TELE SB HR 56. SUCTIONED HER FREQUENTLY THIN WHITE SECRETION NOTED. F/C INTACT AND PATENT DRAINING YELLOWISH COLOR URINE WITH SEDIMENTS. GTF FIBERSOURCE INFUSING AT 20 ML/HR, 0 ML RESIDUAL NOTED. ON TELE SB 56. REPOSITION HER FOR SKIN MANAGEMENT. SIDE RAILS UP X 3 AND CALL LIGHT WITHIN REACH. VSS. CONTINUE TO MONITOR HER.
--- NOTE | 2018-01-07 20:01 | NUR ---
TELE 1 RN NOTE PT WITH SOFT WRIST RESTRAINT ON RT WRIST ONLY. SKIN AROUND RESTRAINT WNL.
[2018-01-07] MEDS: ASCORBIC ACID 500 MG TABLET GT SCH (21:00)
[2018-01-07] MEDS: FLUCONAZOLE IN NS 100 MG in PREMIX 1 EA IV SCH ×2 (21:01)
[2018-01-08] VITALS: BP_SYST 108; BP_SYST 115; BP_DIAS 42; BP_DIAS 51
[2018-01-08] MEDS: METOCLOPRAMIDE HCL 10 MG/2 ML VIAL IV SCH ×4 (00:17→17:10)
[2018-01-08] MEDS: PIPERACILLIN /TAZOBACTAM 3.375 G in IV D5W 50 ML IV SCH ×4 (00:17→17:09)
[2018-01-08] MEDS: IV D5/0.45 NACL 1,000 ML IV PRN (01:28)
--- NOTE | 2018-01-08 01:46 | NUR ---
TELE 1 RN NOTE PT IN BED OBTUNDED. NO DISTRESS OR DISCOMFORT NOTED. IVF AND GTF INFUSING WELL, REPOSITION HER Q2H, KEPT HER DRY AND CLEAN. ENDORSE TO NURSE ISIDORO TO CONTINUE TO CARE AND ALSO TAKE WEEKLY SKIN PICTURES.
[2018-01-08] MEDS: ALBUTEROL HALF STRENGTH 1.25 MG/3 ML VIAL.NEB IH SCH ×4 (01:59→19:37)
[2018-01-08] MEDS: IPRATROPIUM NEB FS 0.5 MG/2.5 ML AMPUL.NEB IH SCH ×4 (01:59→19:37)
[2018-01-08 04:00] VITALS: BP 138/62
[2018-01-08] MEDS: VANCOMYCIN 0.75 GM in IV D5W 250 ML IV SCH ×2 (04:52→15:24)
[2018-01-08] MEDS: SUCRALFATE 1 G/10 ML UDC GT SCH ×3 (04:53→20:47)
[2018-01-08] MEDS: LEVOTHYROXINE SODIUM 25 MCG TABLET GT SCH (04:53)
[2018-01-08 06:56] LABS: EOSINOPHILS # (AUTO) 0.3 /CMM (0.0-0.7); EOSINOPHILS % (AUTO) 3.5 % (0.0-6.0); HEMATOCRIT 25 % (33-45); HEMOGLOBIN 8.3 g/dL (11.5-14.8); LYMPHOCYTES # (AUTO) 1.1 /CMM (0.8-4.8); LYMPHOCYTES % (AUTO) 13.1 % (20.0-44.0); MEAN CORPUSCULAR HEMOGLOBIN 30 PG (26.0-33.0); MEAN CORPUSCULAR HGB CONC 33 g/dl (31.0-36.0); MEAN CORPUSCULAR VOLUME 91 fL (82-100); MONOCYTES # (AUTO) 0.6 /CMM (0.1-1.30); MONOCYTES % (AUTO) 6.8 % (2.0-12.0); NEUTROPHILS # (AUTO) 6.7 /CMM (1.8-8.9); NEUTROPHILS % (AUTO) 76.6 % (43.0-81.0); PLATELET COUNT (AUTO) 180 /CMM (150-450); RDW COEFFICIENT OF VARIATION 15.7 (11.5-15.0); RED BLOOD CELL COUNT(AUTO) 2.75 MIL/uL (4.0-5.2); WHITE BLOOD COUNT (AUTO) 8.7 K/uL (4.3-11.0)
--- NOTE | 2018-01-08 07:30 | NUR ---
INITIAL PT ON BED VENT DEPENDED. GTF FIBERSOURCE AT 60 MIKE MIDLINE RUNNING D5 1/2 NS AT 75 MLS/HR. PT NSR ON MONITOR AT 60'S. PT TURNED SIDE BED IN LOW POSITION CALL LIGHT NEXT TO PT.
[2018-01-08 07:33] LABS: CARBON DIOXIDE 24 mmol/L (21-32); CHLORIDE 110 mmol/L (98-107); CREATININE 0.8 mg/dL (0.6-1.3); GLUCOSE 167 mg/dL (74-106); MAGNESIUM 2.1 mg/dL (1.8-2.4); PHOSPHORUS 3.1 mg/dL (2.5-4.9); SODIUM SERUM 144 mmol/L (136-145); UREA NITROGEN, BLOOD 8 mg/dL (7-18)
--- NOTE | 2018-01-08 07:34 | NUR ---
RN NOTE NO ACUTE CHANGES DURING MY SHIFT, NO RESPIRATORY DISTRESS NOTED, ON ACUTE MEDICAL RESTRAINT, CHECKED CIRCULATION Q 2 HOURS, VISUAL CHECKS Q 15 MINUTES, TRIALS DONE, PATIENT RESTED COMFORTABLE DURING NIGHT, TURNED AND REPOSITIONED, ONGOING IV FLUIDS, ONGOING G-TUBE FEEDING TOLERATED WELL, ALL SAFETY MEASURES TAKEN, CALL LIGHT WITHIN REACH, BED IN THE LOWEST POSITION, ENDORSED TO AM SHIFT
[2018-01-08 07:47] LABS: POTASSIUM 2.8 mmol/L (3.5-5.1)
[2018-01-08 08:00] VITALS: BP 87/48
--- NOTE | 2018-01-08 08:41 | NUR ---
TEL NURSE,POTASSIUM LEVEL is 2.8 left message to exchange waiting for returning call back
[2018-01-08] MEDS ORDERED: POTASSIUM CL. PREMIX PERIPHER. 50 ML IV SCH ×2 (09:00→10:00)
[2018-01-08] MEDS ORDERED: POTASSIUM CHLORIDE 20 MEQ POWDER PACKET GT ONE (09:30)
--- NOTE | 2018-01-08 10:00 | NUR ---
TEST ENGINEER NOTES RECEIVED REPORT FROM SRIDHAR RN: PT IN BED, OBTUNDED, PT SHILEY 6 TRACH TO MECHANICAL VENT, SETTING ORDERED, WELL TOLERATED, ,NO S/S OF DISTRESS NOTED , RESPIRATION EVEN AND UNLABORED, TELEMETRY READS SB HR 62, NO SIGNS OF PAIN, ON GTF FIBERSOURCE AT 60 ML/HR, 0 RESIDUAL, ON AT 1600 OFF AT 1200, F/C IN PLACE DRAINAGE YELLOW URINE, ISOLATION PRECAUTION OBSERVED, WILL TURN AND REPOSITION Q 2HOURS, SAFETY MEASURES IN PLACE, CALL LIGHT WITHIN REACH , WILL CONTINUE TO MONITOR. Addendum: 01/08/18 at 1613 by JACINTO MATT RN ADDENDUM PATIENT WITH SOFT RESTRAINT TO RIGHT WRIST, RELEASED AND CHECKED FOR CIRCULATION.
[2018-01-08] MEDS: MECLIZINE HCL 12.5 MG TABLET GT SCH ×2 (10:40→20:51)
[2018-01-08] MEDS: CARVEDILOL 6.25 MG TABLET GT SCH ×2 (10:41→20:48)
[2018-01-08] MEDS: POLYETHYLENE GLYCOL 3350 17 GM POWD.PACK GT SCH (10:41)
[2018-01-08] MEDS: PANTOPRAZOLE 40 MG VIAL IV SCH ×2 (10:41→17:10)
[2018-01-08] MEDS: MUPIROCIN OINT 2% 22 GM TUBE SCH ×2 (10:42→20:52)
--- NOTE | 2018-01-08 11:14 | NUR ---
IRS AGENT NOTES ZOSYN IV STARTED.
--- NOTE | 2018-01-08 11:49 | NUR ---
FUNERAL LIMOUSINE DRIVER NOTES PER DR. SEVILLA TO GIVE 100 MEQ KCL IV [10 BAGS].
[2018-01-08 12:00] VITALS: BP 116/58
--- NOTE | 2018-01-08 13:14 | NUR ---
BUSINESS INITIATIVES MANAGER NOTES PLACED A CALL TO PHARMACY FOR KCL IV 10 BAGS. ACCORDING TO THEM THEY STILL MAKING IT.
[2018-01-08] MEDS: POTASSIUM CL. PREMIX PERIPHER. 50 ML IV SCH ×10 (13:38→23:49)
--- NOTE | 2018-01-08 13:38 | NUR ---
DELIVERY COORDINATOR NOTES KCL BAG #1 STARTED
--- NOTE | 2018-01-08 14:49 | NUR ---
SUPERCHARGER REPAIR SUPERVISOR NOTES KCL BAG #2 STARTED
--- NOTE | 2018-01-08 15:24 | NUR ---
BREAD DOUGH MIXER NOTES VANCO IV STARTED
--- NOTE | 2018-01-08 15:49 | NUR ---
INSERTING MACHINE OPERATOR NOTES KCL BAG #3 STARTED
[2018-01-08 16:00] VITALS: BP 122/56
--- NOTE | 2018-01-08 16:49 | NUR ---
SECTION LEADER AND MACHINE SETTER NOTES KCL BAG #4 STARTED
--- NOTE | 2018-01-08 17:49 | NUR ---
ACCOUNTING TUTOR NOTES KCL BAG #5 STARTED
--- NOTE | 2018-01-08 18:37 | NUR ---
RIPRAP MAN CLOSING NOTES PATIENT IS RESTING COMFORTABLY IN BED, PT IS HAS SHILEY 6 TRACH TO VENT ON SETTINGS ORDERED, WELL TOLERATED. NO S/SX OF RESPIRATORY DISTRESS NOTED OR CARDIAC DISTRESS. RESIDENT IS OBTUNDED, NO S/SX OF PAIN OR DISCOMFORT NOTED. RESIDENT RECEIVED 60 MEQ OF POTASSIUM CHLORIDE DUE TO POTASSIUM LEVEL 2.8, TOLERATING WELL DUE FOR TOTAL OF 10MEQ. JOSE MIDLINE PATENT, FLUSHING WELL, SITE CLEAN AND DRY. VANCOMYCIN TROUGH DONE TODAY RESULTS 17. DUE FOR BMP TOMORROW. NPO AT THIS TIME G-TUBE CONNECTED WITH FIBERSOURCE AT 60CC/ HR. RESIDENT IS TOLERATING WELL. NO RESIDUAL. SAFETY MAINTAINED AT ALL TIMES; BED LOCKED AND IN LOW POSITION WITH TWO SIDE RAILS UP. CALL LIGHT AND BELONGINGS WITHIN EASY REACH. REPOSITIONED Q 2 HOURS, Z GUARD AND MEPILEX TO SACRAL AREA, PM CARE DONE.
--- NOTE | 2018-01-08 18:49 | NUR ---
COMMISSIONS SPECIALIST NOTES KCL BAG #6 STARTED
--- NOTE | 2018-01-08 19:30 | NUR ---
TELE /RN NOTES: RECIEVED PT. IN BED W/ HOB ELEVATED. W/ MECH. VENTILATOR TOLERATING SETTING WELL. NO S/S OF FACIAL GRIMACES OR MOANING NOTED. NO S/S OF RESPIRATORY DISTRESS. OBTUNDED. ON TELE MONITOR SR. W/ GTF INPLACE PATENT AND INTACT W/ NO RESIDUAL NOTED. ON AT 1600 OFF AT 1200, F/C IN PLACE DRAINAGE YELLOW URINE, ISOLATION PRECAUTION OBSERVED, WILL TURN AND REPOSITION Q 2HOURS, SAFETY MEASURES IN PLACE, CALL LIGHT WITHIN REACH , WILL CONTINUE TO MONITOR.
[2018-01-08 20:00] VITALS: BP 134/43
[2018-01-08] MEDS: FLUCONAZOLE IN NS 100 MG in PREMIX 1 EA IV SCH ×2 (20:50)
[2018-01-08] MEDS: ASCORBIC ACID 500 MG TABLET GT SCH (21:10)
[2018-01-09] VITALS (7 sets, daily range): BP systolic 107–131; BP diastolic 34–85
[2018-01-09] MEDS: IPRATROPIUM NEB FS 0.5 MG/2.5 ML AMPUL.NEB IH SCH ×4 (00:57→19:54)
[2018-01-09] MEDS: ALBUTEROL HALF STRENGTH 1.25 MG/3 ML VIAL.NEB IH SCH ×4 (00:57→19:54)
[2018-01-09] MEDS: PIPERACILLIN /TAZOBACTAM 3.375 G in IV D5W 50 ML IV SCH ×4 (00:58→17:10)
[2018-01-09] MEDS: METOCLOPRAMIDE HCL 10 MG/2 ML VIAL IV SCH ×4 (00:59→17:10)
[2018-01-09] MEDS: FIBERSOURCE HN 1,000 ML BOTTLE GT PRN ×2 (03:43→11:49)
[2018-01-09] MEDS: VANCOMYCIN 0.75 GM in IV D5W 250 ML IV SCH ×2 (03:43→16:17)
[2018-01-09] MEDS: SUCRALFATE 1 G/10 ML UDC GT SCH ×3 (05:45→21:30)
[2018-01-09] MEDS: LEVOTHYROXINE SODIUM 25 MCG TABLET GT SCH (06:04)
[2018-01-09 07:18] LABS: CALCIUM, SERUM 8.2 mg/dL (8.5-10.1); CARBON DIOXIDE 24 mmol/L (21-32); CHLORIDE 112 mmol/L (98-107); CREATININE 0.7 mg/dL (0.6-1.3); GLUCOSE 145 mg/dL (74-106); SODIUM SERUM 144 mmol/L (136-145); UREA NITROGEN, BLOOD 7 mg/dL (7-18)
--- NOTE | 2018-01-09 07:23 | NUR ---
RN/TELE NOTES: NO ACUTE CHANGES NOTED DURING THIS SHIFT. REPORT GIVEN TO AM SHIFT NURSE TO LOCO.
[2018-01-09] MEDS: PANTOPRAZOLE 40 MG VIAL IV SCH ×2 (08:41→16:17)
[2018-01-09] MEDS: POLYETHYLENE GLYCOL 3350 17 GM POWD.PACK GT SCH (08:41)
[2018-01-09] MEDS: CARVEDILOL 6.25 MG TABLET GT SCH ×2 (08:42→21:31)
[2018-01-09] MEDS: MECLIZINE HCL 12.5 MG TABLET GT SCH ×2 (08:42→21:30)
[2018-01-09] MEDS: MUPIROCIN OINT 2% 22 GM TUBE SCH ×2 (08:44→21:31)
--- NOTE | 2018-01-09 09:28 | NUR ---
STEAM AND GAS TURBINES ASSEMBLER AM NOTES RECEIVED REPORT FROM SRIDHAR GREENE: PT IN BED, OBTUNDED, PT SHILEY 6 TRACH TO MECHANICAL VENT, SETTING ORDERED, WELL TOLERATED, ,NO S/S OF DISTRESS NOTED , RESPIRATION EVEN AND UNLABORED, TELEMETRY READS SB HR 61 WITH PVCs, NO SIGNS OF PAIN, ON GTF FIBERSOURCE AT 60 ML/HR, 0 RESIDUAL, ON AT 1600 OFF AT 1200, F/C IN PLACE DRAINAGE YELLOW URINE, PATIENT WITH SOFT RESTRAINT TO RIGHT WRIST, RELEASED AND CHECKED FOR CIRCULATION.ISOLATION PRECAUTION OBSERVED, WILL TURN AND REPOSITION Q 2HOURS, SAFETY MEASURES IN PLACE, CALL LIGHT WITHIN REACH , WILL CONTINUE TO MONITOR.
--- NOTE | 2018-01-09 09:30 | NUR ---
PERSONNEL RECORDS CLERK NOTES DUE MEDS GIVEN
--- NOTE | 2018-01-09 11:49 | NUR ---
CHEMICALS DISTILLER NOTES ZOSYN IV STARTED.
--- NOTE | 2018-01-09 16:17 | NUR ---
EVENTS ADMINISTRATIVE ASSISTANT NOTES VANCO IV STARTED.
--- NOTE | 2018-01-09 17:10 | NUR ---
WELT ROUGHER NOTES ZOSYN IV STARTED.
--- NOTE | 2018-01-09 18:39 | NUR ---
LIQUID WASTE TREATMENT PLANT OPERATOR CLOSING NOTES PT IS RESTING COMFORTABLY IN BED, PT IS HAS SHILEY 6 TRACH TO VENT ON SETTINGS ORDERED, WELL TOLERATED. NO S/SX OF RESPIRATORY DISTRESS. TELEMETRY READING SR 68. PT IS OBTUNDED, NO S/SX OF PAIN OR DISCOMFORT NOTED. JOSE MIDLINE PATENT, FLUSHING WELL, CDI DRESSING. NPO AT THIS TIME G-TUBE CONNECTED WITH FIBERSOURCE AT 60CC/ HR. GIL CATHETER 1500 URINE OUTPUT DRAINING CLEAR YELLOW URINE. SKIN IS DRY. RESIDENT IS TOLERATING WELL. NO RESIDUAL. SAFETY MAINTAINED AT ALL TIMES; BED LOCKED AND IN LOW POSITION WITH TWO SIDE RAILS UP. CALL LIGHT AND BELONGINGS WITHIN EASY REACH. REPOSITIONED Q 2 HOURS, Z GUARD AND MEPILEX TO SACRAL AREA, PM CARE DONE.
--- NOTE | 2018-01-09 19:36 | NUR ---
REVENUE STAMP CLERK OPENING NOTES RECEIVED REPORT FROM SMILEY/JACINTO RN. PATIENT OBTUNDED & TRACH/VENT DEPENDENT. BREATHING NON-LABORED W/ VENT SETTINGS AC 14, TV 450, FIO2 40%, PEEP 5. ON TELE SINUS RHYTHM, HR 60S. LEFT UPPER ARM MIDLINE INTACT W/ DRESSING CDI, SALINE LOCKED. G-TUBE INTACT & FLUSHING WELL W/ GTF FIBERSOURCE @ 60 ML/HR, TOLERATING WELL. NO RESIDUAL NOTED @ THIS TIME. GIL CATH INTACT & DRAINING CLEAR, YELLOW URINE. NO S/S OF PAIN OR DISCOMFORT @ THIS TIME. SAFETY MEASURES IN PLACE W/ SIDE RAILS UP, BED LOCKED & IN LOWEST POSITION & CALL LIGHT WITHIN REACH. RIGHT WRIST SOFT RESTRAINT APPLIED FOR ADDITIONAL SAFETY. WILL CONTINUE TO MONITOR.
[2018-01-09] MEDS: ASCORBIC ACID 500 MG TABLET GT SCH (21:30)
[2018-01-09] MEDS: FLUCONAZOLE IN NS 100 MG in PREMIX 1 EA IV SCH ×2 (21:50)
[2018-01-10] VITALS: BP 108/61
[2018-01-10] MEDS: PIPERACILLIN /TAZOBACTAM 3.375 G in IV D5W 50 ML IV SCH ×5 (00:33→23:41)
[2018-01-10] MEDS: ALBUTEROL HALF STRENGTH 1.25 MG/3 ML VIAL.NEB IH SCH ×5 (01:30→20:10)
[2018-01-10] MEDS: IPRATROPIUM NEB FS 0.5 MG/2.5 ML AMPUL.NEB IH SCH ×5 (01:30→20:10)
[2018-01-10] MEDS: VANCOMYCIN 0.75 GM in IV D5W 250 ML IV SCH ×2 (03:21→16:17)
[2018-01-10 04:00] VITALS: BP 99/46
[2018-01-10] MEDS: METOCLOPRAMIDE HCL 10 MG/2 ML VIAL IV SCH ×5 (06:00→23:41)
[2018-01-10] MEDS: SUCRALFATE 1 G/10 ML UDC GT SCH ×3 (06:10→21:09)
[2018-01-10] MEDS: LEVOTHYROXINE SODIUM 25 MCG TABLET GT SCH (06:17)
[2018-01-10 07:08] LABS: CALCIUM, SERUM 8.1 mg/dL (8.5-10.1); CARBON DIOXIDE 26 mmol/L (21-32); CHLORIDE 110 mmol/L (98-107); CREATININE 0.6 mg/dL (0.6-1.3); GLUCOSE 154 mg/dL (74-106); POTASSIUM 3.5 mmol/L (3.5-5.1); SODIUM SERUM 145 mmol/L (136-145); UREA NITROGEN, BLOOD 11 mg/dL (7-18)
--- NOTE | 2018-01-10 07:18 | NUR ---
RN INITIAL NOTES: REC'D PT AWAKE ON BED, NOT IN ANY DISTRESS, OBTUNDED. ON MV VIA TRACH, SATING AT 100%. ON TELEMONITOR, SR W/ HR 72 BPM. HAS FC PATENT & INTACT. HAS GT PATENT & INTACT, ON CONT TF FIBERSOURCE X 60 CC/HR INFUSING WELL, NO RESIDUAL NOTED AT THIS TIME. HAS JOSE MIDLINE G18 & R HAND SL, BOTH FLUSHING WELL, NO S/SX OF INFECTION/INFILTRATION NOTED. PROVIDED COMFORT & SAFETY MEASURES. BED KEPT LOW & IN LOCKED POS. CALL LIGHT PLACED W/IN REACH, WILL CONTINUE TO MONITOR.
[2018-01-10 08:00] VITALS: BP_SYST 110; BP_SYST 115; BP_DIAS 35; BP_DIAS 49
[2018-01-10] MEDS: POLYETHYLENE GLYCOL 3350 17 GM POWD.PACK GT SCH (08:52)
[2018-01-10] MEDS: MECLIZINE HCL 12.5 MG TABLET GT SCH ×2 (08:52→21:10)
[2018-01-10] MEDS: PANTOPRAZOLE 40 MG VIAL IV SCH ×2 (08:52→16:17)
[2018-01-10] MEDS: MUPIROCIN OINT 2% 22 GM TUBE SCH ×2 (08:52→21:10)
[2018-01-10] MEDS: Z GUARD REMEDY 4 OZ OINT TP PRN (08:53)
[2018-01-10] MEDS: CARVEDILOL 6.25 MG TABLET GT SCH ×2 (09:25→21:10)
[2018-01-10 12:00] VITALS: BP_SYST 128; BP_SYST 130; BP_DIAS 54
[2018-01-10] MEDS: FIBERSOURCE HN 1,000 ML BOTTLE GT PRN (14:19)
[2018-01-10 16:00] VITALS: BP 124/58
--- NOTE | 2018-01-10 17:35 | NUR ---
RT NOTE: RECEIVED PATIENT TRACH ON PB 840 VENT. ALARMS VERIFIED AND AUDIBLE. SUCTIONED AND LAVAGED SMALL-MODERATE AMOUNTS OF THIN/FROTHY WHITE SECRETIONS. VENT PLUGGED INTO RED OUTLET. AMBU BAG AT [facility].
--- NOTE | 2018-01-10 18:22 | NUR ---
RN CLOSING NOTES: NO ACUTE CHANGES NOTED W/IN SHIFT. PT TOLERATED CURRENT MV SETTINGS VIA TRACH, NO SOB. ON TELEMONITOR, STILL SR. FC KEPT PATENT & INTACT. PT TOLERATED CURRENT GTF FIBERSOURCE X 60 CC/HR, NO RESIDUAL W/IN SHIFT. JOSE MIDLINE G18 & R HAND SL, KEPT PATENT & INTACT W/ NO S/SX OF INFECTION/INFILTRATION NOTED. KEPT WELL RESTED. NEEDS ATTENDED. BED KEPT LOW & IN LOCKED POS. CALL LIGHT PLACED W/IN REACH. WILL ENDORSE TO PM RN FOR LOCO.
--- NOTE | 2018-01-10 19:20 | NUR ---
PRESS SUPERVISOR OPENING NOTES RECEIVED REPORT FROM SAYDA Hein RN. PATIENT OBTUNDED & TRACH/VENT DEPENDENT. BREATHING NON-LABORED W/ VENT SETTINGS AC 14, TV 400, FIO2 40%, PEEP 5. ON TELE SINUS RHYTHM, HR 60S. LEFT UPPER ARM MIDLINE INTACT W/ DRESSING CDI, TKO. LEFT HAND IV #20 INTACT & FLUSHING WELL, SALINE LOCKED. G-TUBE INTACT & PATENT W/ GTF FIBERSOURCE @ 60 ML/HR, TOLERATING WELL. NO RESIDUAL NOTED @ THIS TIME. GIL CATH DRAINING CLEAR, YELLOW URINE. NO S/S OF PAIN OR DISCOMFORT @ THIS TIME. SAFETY MEASURES IN PLACE W/ SIDE RAILS UP, BED LOCKED & IN LOWEST POSITION & CALL LIGHT WITHIN REACH. RIGHT WRIST SOFT RESTRAINT APPLIED FOR ADDITIONAL SAFETY. WILL CONTINUE TO MONITOR.
[2018-01-10 20:00] VITALS: BP 119/50
[2018-01-10] MEDS: ASCORBIC ACID 500 MG TABLET GT SCH (21:10)
[2018-01-10] MEDS: FLUCONAZOLE IN NS 100 MG in PREMIX 1 EA IV SCH ×2 (21:18)
[2018-01-11] VITALS: BP 114/85
[2018-01-11] MEDS: IPRATROPIUM NEB FS 0.5 MG/2.5 ML AMPUL.NEB IH SCH ×4 (01:47→19:29)
[2018-01-11] MEDS: ALBUTEROL HALF STRENGTH 1.25 MG/3 ML VIAL.NEB IH SCH ×4 (01:47→19:29)
[2018-01-11] MEDS: VANCOMYCIN 0.75 GM in IV D5W 250 ML IV SCH (03:22)
[2018-01-11 04:00] VITALS: BP 130/50
[2018-01-11] MEDS: SUCRALFATE 1 G/10 ML UDC GT SCH ×3 (05:11→21:44)
[2018-01-11] MEDS: LEVOTHYROXINE SODIUM 25 MCG TABLET GT SCH (05:11)
[2018-01-11] MEDS: METOCLOPRAMIDE HCL 10 MG/2 ML VIAL IV SCH ×3 (05:12→17:53)
[2018-01-11] MEDS: PIPERACILLIN /TAZOBACTAM 3.375 G in IV D5W 50 ML IV SCH (05:12)
[2018-01-11 06:28] LABS: BASOPHILS % (AUTO) 0.1 % (0.0-2.0); EOSINOPHILS # (AUTO) 0.4 /CMM (0.0-0.7); EOSINOPHILS % (AUTO) 4.2 % (0.0-6.0); HEMATOCRIT 26 % (33-45); HEMOGLOBIN 8.6 g/dL (11.5-14.8); LYMPHOCYTES # (AUTO) 1.3 /CMM (0.8-4.8); LYMPHOCYTES % (AUTO) 14.7 % (20.0-44.0); MEAN CORPUSCULAR HEMOGLOBIN 31 PG (26.0-33.0); MEAN CORPUSCULAR HGB CONC 33 g/dl (31.0-36.0); MEAN CORPUSCULAR VOLUME 92 fL (82-100); MONOCYTES # (AUTO) 0.8 /CMM (0.1-1.30); MONOCYTES % (AUTO) 9.1 % (2.0-12.0); NEUTROPHILS # (AUTO) 6.5 /CMM (1.8-8.9); NEUTROPHILS % (AUTO) 71.9 % (43.0-81.0); PLATELET COUNT (AUTO) 240 /CMM (150-450); RDW COEFFICIENT OF VARIATION 17.3 (11.5-15.0); WHITE BLOOD COUNT (AUTO) 9.1 K/uL (4.3-11.0)
--- NOTE | 2018-01-11 07:11 | NUR ---
Received female bren pt on mechanica vent. Pt bren is secure. Vent is plugged into a red outlet, alarms are set and audible, and BVM is at bedside. Addendum: 01/11/18 at 0712 by MAI PALOMO RT Amended: Links added.
[2018-01-11 07:13] LABS: ALANINE AMINOTRANSFERASE 26 U/L (12-78); ALBUMIN 2.1 g/dL (3.4-5.0); ALKALINE PHOSPHATASE 52 U/L (46-116); ASPARTATE AMINOTRANSFERASE 18 U/L (15-37); BILIRUBIN,DIRECT 0.1 mg/dL (0.0-0.2); BILIRUBIN,TOTAL 0.2 mg/dL (0.2-1.0); CALCIUM, SERUM 8.1 mg/dL (8.5-10.1); CARBON DIOXIDE 28 mmol/L (21-32); CHLORIDE 106 mmol/L (98-107); CREATININE 0.6 mg/dL (0.6-1.3); GLUCOSE 132 mg/dL (74-106); MAGNESIUM 1.9 mg/dL (1.8-2.4); PHOSPHORUS 2.6 mg/dL (2.5-4.9); SODIUM SERUM 142 mmol/L (136-145); UREA NITROGEN, BLOOD 12 mg/dL (7-18)
--- NOTE | 2018-01-11 07:35 | NUR ---
REFRIGERATION ENGINEER OPENING NOTES. PT RECEIVED OBTUNDED. PT WITH CONTACT PRECS R/T MRSA NARES. PT WITH R SIDED SWR, NEURO INTACT. PT WITH TELE: SR. PT VENT AND TRACH DEPENDENT, SETTING REVIEWED AND CORRECT, PT WITHOUT S/S OF RESP DISTRESS. PT UNABLE TO INDICATE PAIN BUT IS WITHOUT S/S OF DISTRESS OR DISCOMFORT. PT WITH L UA MIDLINE INTACT AND OPERATIONAL WITH TKO NS. IVC AT L G#20 INTACT AND SALINE FLUSH PATENT. PT WITH GIL INTACT AND OPERATIONAL WITH LITE YELLOW URINE IN COLLECTION. PT WITH G TUBE INTACT AND OPERATIONAL WITH FIBERSOURCE AT 60ML/PH. BED IN LOWEST LOCKED POSITION WITH HANDRAILSX4. WILL CONTINUE TO MONITOR.
[2018-01-11 08:00] VITALS: BP 139/58
[2018-01-11] MEDS ORDERED: RXVAN XX (08:41)
[2018-01-11] MEDS ORDERED: MUPI22OI7 (08:41)
[2018-01-11] MEDS ORDERED: PIPE3.376 IV (08:41)
[2018-01-11] MEDS ORDERED: CARV6.252 GT (08:41)
[2018-01-11] MEDS: PANTOPRAZOLE 40 MG VIAL IV SCH ×2 (09:15→17:54)
[2018-01-11] MEDS: POLYETHYLENE GLYCOL 3350 17 GM POWD.PACK GT SCH (09:15)
[2018-01-11] MEDS: FIBERSOURCE HN 1,000 ML BOTTLE GT PRN (09:15)
[2018-01-11] MEDS: MECLIZINE HCL 12.5 MG TABLET GT SCH ×2 (09:16→21:44)
[2018-01-11] MEDS: CARVEDILOL 6.25 MG TABLET GT SCH ×2 (09:16→21:00)
[2018-01-11] MEDS: MUPIROCIN OINT 2% 22 GM TUBE SCH ×2 (09:16→21:47)
[2018-01-11 12:00] VITALS: BP 105/62
[2018-01-11 12:13] LABS: ERYTHROPOIETIN 165.6 mIU/mL (2.6-18.5)
[2018-01-11] MEDS: CLONIDINE HCL 0.2MG/24H PTWK 1 EA PATCH TD SCH (14:00)
[2018-01-11 16:00] VITALS: BP 110/94
--- NOTE | 2018-01-11 16:05 | NUR ---
RN NOTES. PT TEMP 99.5, FAN STARTED IN ROOM.
--- NOTE | 2018-01-11 19:15 | NUR ---
RN OPENING NOTES: RECEIVED PATIENT ON BED AWAKE; WITH SPONTANEOUS EYE OPENING THROUGH VERBAL STIMULI. [facility], SETTINGS ORDERED,TOLERATED WELL NOT IN APPARENT DISTRESS. SR ON MONITOR HR ON THE 90'S. IV ACCESS PATENT AND INTACT. NOTED LEFT HAND PERIPHERAL IV ACCESS PULLED OUT. MAINTAINED MIDLINE ON JOSE. FC INTACT, DRAINING TO A CLOSED SYSTEM; MONITORED UO. SAFETY MEASURES ENSURED. ASPIRATION PRECAUTIONS ENSURED. CONTINUOUSLY MONITORED.
--- NOTE | 2018-01-11 19:17 | NUR ---
INSURANCE MANAGER CLOSING NOTES. PT OBTUNDED. PT WITH TELE: SR AND CONTACT PRECS R/T MRSA NARES. PT REMAINS WITH R SIDED SWR, NEURO INTACT. PT VENT AND TRACH DEPENDENT. PT IS WITHOUT S/S OF RESP DISTRESS, PAIN OR DISCOMFORT. PT WITH L UA MIDLINE INTACT AND OPERATIONAL WITH TKO NS AND IVC AT L G#20 SL. PT GIL AND G TUBE REMAIN INTACT AND OPERATIONAL. PT NORMOTHERMIC, FAN REMAINS IN ROOM. PT WEEKLY BP PATCH NOT ADMINISTERED R/T LOW BP, NIGHT NURSE ENDORSED TO FOLLOW UP WITH MD. PT BED IN LOWEST LOCKED POSITION WITH HANDRAILSX4, ALL DAY NURSE DUTIES ATTENDED TO. WILL ENDORSE TO NIGHT NURSE.
[2018-01-11 20:00] VITALS: BP 127/64
[2018-01-11] MEDS: ASCORBIC ACID 500 MG TABLET GT SCH (21:47)
[2018-01-12] VITALS: BP 117/58
--- NOTE | 2018-01-12 | NUR ---
MIDSHIFT RN NOTES: NOT IN APPARENT DISTRESS. MONITORED FOR FURTHER FEBRILE EPISODES. MONITORED FOR HYPOTENSIVE EPISODES.
[2018-01-12] MEDS: METOCLOPRAMIDE HCL 10 MG/2 ML VIAL IV SCH ×3 (01:09→12:48)
[2018-01-12] MEDS: IPRATROPIUM NEB FS 0.5 MG/2.5 ML AMPUL.NEB IH SCH ×4 (01:33→19:16)
[2018-01-12] MEDS: ALBUTEROL HALF STRENGTH 1.25 MG/3 ML VIAL.NEB IH SCH ×4 (01:33→19:16)
--- NOTE | 2018-01-12 03:51 | NUR ---
RT Pt trach remains on [facility] vent on ordered settings. svn txs given inline. sx prn Addendum: 01/12/18 at 0352 by RHONDA GAMBINO RT Amended: Links added.
[2018-01-12 04:00] VITALS: BP 117/58
[2018-01-12] MEDS: LEVOTHYROXINE SODIUM 25 MCG TABLET GT SCH (05:20)
[2018-01-12] MEDS: SUCRALFATE 1 G/10 ML UDC GT SCH ×3 (05:20→21:05)
[2018-01-12] MEDS: FIBERSOURCE HN 1,000 ML BOTTLE GT PRN (05:20)
--- NOTE | 2018-01-12 06:49 | NUR ---
RN CLOSING NOTES; PATIENT REMAINED ON BED NOT IN APPARENT DISTRESS. KEPT ON MECH VENT, TOLERATED WELL. NO FURTHER EPISODES OF FEVER. NO ACUTE CHANGES WITHIN THE NIGHT. GT INTACT, FEEDING ONGOING. NO NOTED RESIDUALS.. FC INTACT, UO DRAINED AND DOCUMENTED. AM LABS DRAWN , PENDING RESULT. SAFETY MEASURES ENSURED. CONTINUOUSLY MONITORED. TO ENDORSE TO AM SHIFT RN.
--- NOTE | 2018-01-12 07:30 | NUR ---
FINANCIAL SERVICES INTERNSHIP AM NOTES PT IN BED, OBTUNDED, PT SHILEY 6 TRACH TO MECHANICAL VENT, SETTING ORDERED, WELL TOLERATED, ,NO S/S OF DISTRESS NOTED , RESPIRATION EVEN AND UNLABORED, TELEMETRY READS SB HR 69, NO SIGNS OF PAIN, ON GTF FIBERSOURCE AT 60 ML/HR, 0 RESIDUAL, ON AT 1600 OFF AT 1200, F/C IN PLACE DRAINAGE YELLOW URINE, PATIENT WITH SOFT RESTRAINT TO RIGHT WRIST, RELEASED AND CHECKED FOR CIRCULATION.ISOLATION PRECAUTION OBSERVED, WILL TURN AND REPOSITION Q 2HOURS, SAFETY MEASURES IN PLACE, CALL LIGHT WITHIN REACH , WILL CONTINUE TO MONITOR.
[2018-01-12 08:00] VITALS: BP 116/58
[2018-01-12] MEDS: POLYETHYLENE GLYCOL 3350 17 GM POWD.PACK GT SCH (09:02)
[2018-01-12] MEDS: PANTOPRAZOLE 40 MG VIAL IV SCH ×2 (09:02→17:03)
[2018-01-12] MEDS: MECLIZINE HCL 12.5 MG TABLET GT SCH ×2 (09:03→21:05)
[2018-01-12] MEDS: CARVEDILOL 6.25 MG TABLET GT SCH ×2 (09:03→21:00)
[2018-01-12] MEDS: MUPIROCIN OINT 2% 22 GM TUBE SCH ×2 (09:07→21:05)
--- NOTE | 2018-01-12 09:30 | NUR ---
WET SUIT GLUER NOTES DUE MEDS GIVEN
[2018-01-12 11:05] LABS: CALCIUM, SERUM 8.8 mg/dL (8.5-10.1); CARBON DIOXIDE 29 mmol/L (21-32); CHLORIDE 104 mmol/L (98-107); CREATININE 0.5 mg/dL (0.6-1.3); GLUCOSE 142 mg/dL (74-106); SODIUM SERUM 141 mmol/L (136-145); UREA NITROGEN, BLOOD 13 mg/dL (7-18)
[2018-01-12 12:00] VITALS: BP 111/43
[2018-01-12 16:00] VITALS: BP 133/46
[2018-01-12] MEDS: METOCLOPRAMIDE HCL 10 MG TABLET GT SCH ×2 (17:03→23:47)
--- NOTE | 2018-01-12 18:58 | NUR ---
SALES PERSON CLOSING NOTES PT IS RESTING COMFORTABLY IN BED, PT IS HAS SHILEY 6 TRACH TO VENT ON SETTINGS ORDERED, WELL TOLERATED. NO S/SX OF RESPIRATORY DISTRESS. TELEMETRY READING SR 69. PT IS OBTUNDED, NO S/SX OF PAIN OR DISCOMFORT NOTED. JOSE MIDLINE PATENT, FLUSHING WELL, CDI DRESSING. NPO AT THIS TIME G-TUBE CONNECTED WITH FIBERSOURCE AT 60CC/ HR. GIL CATHETER 1500 URINE OUTPUT DRAINING CLEAR YELLOW URINE. SKIN IS DRY. RESIDENT IS TOLERATING WELL. NO RESIDUAL. SAFETY MAINTAINED AT ALL TIMES; BED LOCKED AND IN LOW POSITION WITH TWO SIDE RAILS UP. CALL LIGHT AND BELONGINGS WITHIN EASY REACH. REPOSITIONED Q 2 HOURS, Z GUARD AND MEPILEX TO SACRAL AREA, PM CARE DONE. NO OTHER SIGNIFICANT CHANGE IN CONDITION. WILL ENDORSE TO NEXT SHIFT FOR LOCO.
--- NOTE | 2018-01-12 19:30 | NUR ---
MAINTENANCE ENGINEER INITIAL NOTE PT RECEIVED IN BED. ON [facility] VENT WITH SETTINGS WELL TOLERATED AND SATURATING 99%. TELE- SINUS RHYTHM 90. ISOLATION PRECAUTIONS OBSERVED. IV JOSE MIDLINE CLEAN, DRY AND PATENT. GTUBE FEEDING WELL TOLERATED WITHOUT RESIDUALS NOTED. ON ASPIRATION PRECAUTIONS. HOB ELEVATED. GIL CATHETER IN PLACE AND DRAINING BY GRAVITY. WILL CONTINUE TO MONITOR.
[2018-01-12 20:00] VITALS: BP 94/51
[2018-01-12] MEDS: ASCORBIC ACID 500 MG TABLET GT SCH (21:05)
[2018-01-13] VITALS (7 sets, daily range): BP systolic 103–145; BP diastolic 54–74
[2018-01-13] MEDS: IPRATROPIUM NEB FS 0.5 MG/2.5 ML AMPUL.NEB IH SCH ×4 (01:42→20:04)
[2018-01-13] MEDS: ALBUTEROL HALF STRENGTH 1.25 MG/3 ML VIAL.NEB IH SCH ×4 (01:42→20:04)
[2018-01-13] MEDS: FIBERSOURCE HN 1,000 ML BOTTLE GT PRN (05:00)
[2018-01-13] MEDS: LEVOTHYROXINE SODIUM 25 MCG TABLET GT SCH (05:00)
[2018-01-13] MEDS: SUCRALFATE 1 G/10 ML UDC GT SCH ×3 (05:00→21:27)
[2018-01-13] MEDS: METOCLOPRAMIDE HCL 10 MG TABLET GT SCH ×4 (05:00→23:27)
[2018-01-13 06:40] LABS: CALCIUM, SERUM 9.1 mg/dL (8.5-10.1); CARBON DIOXIDE 29 mmol/L (21-32); CHLORIDE 106 mmol/L (98-107); CREATININE 0.6 mg/dL (0.6-1.3); GLUCOSE 122 mg/dL (74-106); POTASSIUM 4.3 mmol/L (3.5-5.1); SODIUM SERUM 143 mmol/L (136-145); UREA NITROGEN, BLOOD 13 mg/dL (7-18)
--- NOTE | 2018-01-13 07:11 | NUR ---
RT PATIENT REC'D TRACHED ON [facility] VENT WITH SETTINGS SET BY MD ELENI NINA. VENT ALARMS CHECKED + AUDIBLE. B/S DIM COARSE. SX'D WITH SMALL AMT PALE SEMITHICK SECRETIONS. AMBU BAG AT HOB Addendum: 01/13/18 at 1628 by RUDDY ISSA RT Amended: Links added.
--- NOTE | 2018-01-13 07:27 | NUR ---
RICE DRYER MECHANIC CLOSING NOTE PT REMAINED STABLE DURING SHIFT. NO ACUTE DISTRESS NOTED. ALL NEEDS ATTENDED TO PROMPTLY. KEPT CLEAN AND DRY. VENT SETTINGS WELL TOLERATED. SUCTIONED NEEDED. REPOSITIONED Q2H. ISOLATION PRECAUTIONS OBSERVED. WILL ENDORSE TO NEXT SHIFT FOR CONTINUITY OF CARE.
--- NOTE | 2018-01-13 07:46 | NUR ---
GRINDER INITIAL NOTE PT [facility]ED. [facility] WITH [facility]TINGS WELL TOLERATED. TELE- SINUS RHYTHM 90. ISOLATION PRECAUTIONS OBSERVED. IV JOSE MIDLINE CLEAN, DRY, INTACT AND PATENT. GTUBE FEEDING INTACT AND PATENT, WELL TOLERATED WITHOUT RESIDUALS. HOB ELEVATED ON ASPIRATION PRECAUTIONS. GIL CATHETER INTACT AND PATENT WITH ADEQUATE FLOW OF CLEAR,YELLOW URINE. WILL CONTINUE TO MONITOR.
[2018-01-13] MEDS: POLYETHYLENE GLYCOL 3350 17 GM POWD.PACK GT SCH (08:59)
[2018-01-13] MEDS: MECLIZINE HCL 12.5 MG TABLET GT SCH ×2 (08:59→21:27)
[2018-01-13] MEDS: CARVEDILOL 6.25 MG TABLET GT SCH ×2 (08:59→21:27)
[2018-01-13] MEDS: PANTOPRAZOLE 40 MG VIAL IV SCH ×2 (09:00→17:10)
[2018-01-13] MEDS: MUPIROCIN OINT 2% 22 GM TUBE SCH ×2 (09:01→21:28)
--- NOTE | 2018-01-13 18:10 | NUR ---
RN CLOSING NOTE Patient stable throughout the day , fluid and electrolytes monitored and replenished via iv fluids , patient remains without injury vitals within normal limits , no temp noted throughout the shift , no sob noted patient tolerating vent settings well, patient unable to ambulate, however patient turned and repositioned q2hrs , skin remains intact, labs monitored via nursing staff and MD , care plan reviewed with patient , RN unable to assess patients understanding g-tube feeing remain in place , no residuals noted at this time, RN will endorse continuation of care to pm RN
--- NOTE | 2018-01-13 19:54 | NUR ---
tele/rn opening notes PATIENT IN BED, AWAKE, ALERTX2, HOB ELEVATED, ABLE TO FEED SELF WITH SUPERVISION, CALM AND COOPERATIVE TO CARE, RESPIRATIONS EVEN AND UNLABORES, SKIN WARM TO TOUCH, tELE MONITORING AFIB AT 84, WITH SUPRAPUBIC CATHETER DRAINING URINE, REQUIRE REPOSITION AND TURNING, ON MECHANICAL SOFT DIET, RIGHT WRIST GAUGE 20, WITH D5W AT 30 ML/HR, ELECTROLYTES WAS REPLACED BY AM RN, ENDORSE BY AM RN FOR LOCO, WILL CONTINUE TO PROVIDE CARE AND MONITOR, BED IN LOCK POSITION, CALL LIGHTS WITHIN REACH. Addendum: 01/13/18 at 2001 by GOVIND ESPINAL RN NATALEE SNYDERREGARD
--- NOTE | 2018-01-13 20:00 | NUR ---
RN INITIAL NOTE PT RECEIVED IN BED. ON [facility] VENT WITH SETTINGS WELL TOLERATED AND SATURATING 99%. TELE- SINUS RHYTHM 79. ISOLATION PRECAUTIONS OBSERVED. IV JOSE MIDLINE CLEAN, DRY AND PATENT. GTUBE FEEDING WELL TOLERATED WITHOUT RESIDUALS NOTED. ASPIRATION PRECAUTIONS OBSERVED. HOB ELEVATED. GIL CATHETER IN PLACE AND DRAINING BY GRAVITY. WILL CONTINUE TO MONITOR.
[2018-01-13] MEDS: ASCORBIC ACID 500 MG TABLET GT SCH (21:27)
[2018-01-14] VITALS: BP 111/78
[2018-01-14] MEDS: IPRATROPIUM NEB FS 0.5 MG/2.5 ML AMPUL.NEB IH SCH ×4 (00:45→19:57)
[2018-01-14] MEDS: ALBUTEROL HALF STRENGTH 1.25 MG/3 ML VIAL.NEB IH SCH ×4 (00:45→19:57)
[2018-01-14 04:00] VITALS: BP 126/75
[2018-01-14] MEDS: LEVOTHYROXINE SODIUM 25 MCG TABLET GT SCH (05:01)
[2018-01-14] MEDS: SUCRALFATE 1 G/10 ML UDC GT SCH ×3 (05:01→21:37)
[2018-01-14] MEDS: FIBERSOURCE HN 1,000 ML BOTTLE GT PRN (05:01)
[2018-01-14] MEDS: METOCLOPRAMIDE HCL 10 MG TABLET GT SCH ×4 (05:01→23:33)
--- NOTE | 2018-01-14 06:26 | NUR ---
RN CLOSING NOTE PT REMAINED STABLE DURING SHIFT. NO ACUTE DISTRESS NOTED. ALL NEEDS ATTENDED TO PROMPTLY. KEPT CLEAN AND DRY. VENT SETTINGS WELL TOLERATED. SUCTIONED NEEDED. REPOSITIONED Q2H. ISOLATION PRECAUTIONS OBSERVED. WILL ENDORSE TO NEXT SHIFT FOR CONTINUITY OF CARE.
--- NOTE | 2018-01-14 07:30 | NUR ---
DATABASE MARKETING SPECIALIST AM NOTES PT IN BED, OBTUNDED, PT SHILEY 6 TRACH TO MECHANICAL VENT, SETTING ORDERED, WELL TOLERATED, ,NO S/S OF DISTRESS NOTED , RESPIRATION EVEN AND UNLABORED, TELEMETRY READS SB HR 69, NO SIGNS OF PAIN, ON GTF FIBERSOURCE AT 60 ML/HR, 0 RESIDUAL, ON AT 1200 OFF AT 0800, F/C IN PLACE DRAINAGE YELLOW URINE, PATIENT WITH SOFT RESTRAINT TO RIGHT WRIST, RELEASED AND CHECKED FOR CIRCULATION.ISOLATION PRECAUTION OBSERVED, WILL TURN AND REPOSITION Q 2HOURS, SAFETY MEASURES IN PLACE, CALL LIGHT WITHIN REACH , WILL CONTINUE TO MONITOR.
[2018-01-14 07:58] LABS: BASOPHILS % (AUTO) 0.2 % (0.0-2.0); EOSINOPHILS # (AUTO) 0.2 /CMM (0.0-0.7); EOSINOPHILS % (AUTO) 2.4 % (0.0-6.0); HEMATOCRIT 32 % (33-45); HEMOGLOBIN 10.7 g/dL (11.5-14.8); LYMPHOCYTES # (AUTO) 1.3 /CMM (0.8-4.8); LYMPHOCYTES % (AUTO) 14.7 % (20.0-44.0); MEAN CORPUSCULAR HEMOGLOBIN 31 PG (26.0-33.0); MEAN CORPUSCULAR HGB CONC 34 g/dl (31.0-36.0); MEAN CORPUSCULAR VOLUME 91 fL (82-100); MONOCYTES # (AUTO) 0.9 /CMM (0.1-1.30); MONOCYTES % (AUTO) 9.5 % (2.0-12.0); NEUTROPHILS # (AUTO) 6.7 /CMM (1.8-8.9); NEUTROPHILS % (AUTO) 73.2 % (43.0-81.0); PLATELET COUNT (AUTO) 345 /CMM (150-450); RDW COEFFICIENT OF VARIATION 16.6 (11.5-15.0); RED BLOOD CELL COUNT(AUTO) 3.49 MIL/uL (4.0-5.2); WHITE BLOOD COUNT (AUTO) 9.1 K/uL (4.3-11.0)
[2018-01-14 08:00] VITALS: BP 105/43
[2018-01-14 08:03] LABS: CALCIUM, SERUM 9.2 mg/dL (8.5-10.1); CARBON DIOXIDE 28 mmol/L (21-32); CHLORIDE 107 mmol/L (98-107); CREATININE 0.6 mg/dL (0.6-1.3); GLUCOSE 147 mg/dL (74-106); POTASSIUM 4.4 mmol/L (3.5-5.1); SODIUM SERUM 145 mmol/L (136-145); UREA NITROGEN, BLOOD 17 mg/dL (7-18)
[2018-01-14] MEDS: MECLIZINE HCL 12.5 MG TABLET GT SCH ×2 (09:17→21:38)
[2018-01-14] MEDS: PANTOPRAZOLE 40 MG VIAL IV SCH ×2 (09:17→17:07)
[2018-01-14] MEDS: POLYETHYLENE GLYCOL 3350 17 GM POWD.PACK GT SCH (09:17)
[2018-01-14] MEDS: MUPIROCIN OINT 2% 22 GM TUBE SCH (09:18)
[2018-01-14] MEDS: CARVEDILOL 6.25 MG TABLET GT SCH ×2 (09:18→21:00)
--- NOTE | 2018-01-14 09:30 | NUR ---
LEAD DATA ENTRY OPERATOR NOTES DUE MEDS GIVEN
[2018-01-14 12:00] VITALS: BP 126/97
[2018-01-14 16:00] VITALS: BP 131/85
--- NOTE | 2018-01-14 18:25 | NUR ---
OUTBOUND TELEMARKETING REPRESENTATIVE CLOSING NOTES PT IS RESTING COMFORTABLY IN BED, PT IS HAS SHILEY 6 TRACH TO VENT ON SETTINGS ORDERED, WELL TOLERATED. NO S/SX OF RESPIRATORY DISTRESS. TELEMETRY READING SR 72. PT IS OBTUNDED, NO S/SX OF PAIN OR DISCOMFORT NOTED. JOSE MIDLINE PATENT, FLUSHING WELL, CDI DRESSING. NPO AT THIS TIME G-TUBE CONNECTED WITH FIBERSOURCE AT 60CC/ HR. RESIDENT IS TOLERATING WELL. NO RESIDUAL. GIL CATHETER 550 ML URINE OUTPUT. SKIN IS WARM AND DRY. SAFETY MAINTAINED AT ALL TIMES; BED LOCKED AND IN LOW POSITION WITH TWO SIDE RAILS UP. CALL LIGHT AND BELONGINGS WITHIN EASY REACH. REPOSITIONED Q 2 HOURS, Z GUARD AND MEPILEX TO SACRAL AREA, PM CARE DONE. RIGHT WRIST RESTRAINT RELEASED AND CHECKED FOR CIRCULATION EVERY 2 HOURS. ALL NEEDS MET. FOR DISCHARGE TO SUBACUTE IN AM. NO OTHER SIGNIFICANT CHANGE IN CONDITION. WILL ENDORSE TO NEXT SHIFT FOR LOCO.
--- NOTE | 2018-01-14 19:30 | NUR ---
FIXING CARPENTER NOTES, RECEIVED PATIENT IN BED, WITH EYES OPEN, ON VENT SETTINGS, NO S/S OF SOB/ACUTE DISTRESS NOTED AT THIS TIME, TOLERATING SETTINGS WELL, GTF INFUSING WELL AND PATIENT TOLERATED WELL, JOSE MIDLINE IN PLACE INTACT AND PATENT, F/C DRAINING YELLOW URINE BY GRAVITY, NO HEMATURIA NOTED AT THIS TIME, ON ACUTE MEDICAL RESTRAINS, CIRCULATION WNL, NO ABNORMALITY NOTED AT SITE, NO BRUISES NOTED, RELEASE AT THIS TIME, PATIENT CALM, AND COOPERATIVE WITH CARE NO AGITATION OR PULLING TUBES AT THIS TIME, NOTED DRY AND CLEAN, BED LOCKED AN DIN LOWEST POSITION, CALL LIGHT W./I EACH, WILL CONTINUE TO MONITOR CLOSELY.
[2018-01-14 20:00] VITALS: BP 106/61
[2018-01-14] MEDS: ASCORBIC ACID 500 MG TABLET GT SCH (21:37)
[2018-01-15] VITALS: BP 126/55
[2018-01-15] MEDS: ALBUTEROL HALF STRENGTH 1.25 MG/3 ML VIAL.NEB IH SCH ×2 (02:01→07:11)
[2018-01-15] MEDS: IPRATROPIUM NEB FS 0.5 MG/2.5 ML AMPUL.NEB IH SCH ×2 (02:01→07:11)
[2018-01-15 04:00] VITALS: BP 112/73
[2018-01-15] MEDS: METOCLOPRAMIDE HCL 10 MG TABLET GT SCH ×2 (05:06→12:54)
[2018-01-15] MEDS: SUCRALFATE 1 G/10 ML UDC GT SCH ×2 (05:06→12:54)
[2018-01-15] MEDS: LEVOTHYROXINE SODIUM 25 MCG TABLET GT SCH (05:06)
[2018-01-15] MEDS: FIBERSOURCE HN 1,000 ML BOTTLE GT PRN (05:07)
[2018-01-15 06:57] LABS: CARBON DIOXIDE 32 mmol/L (21-32); CHLORIDE 101 mmol/L (98-107); CREATININE 0.6 mg/dL (0.6-1.3); GLUCOSE 124 mg/dL (74-106); SODIUM SERUM 138 mmol/L (136-145); UREA NITROGEN, BLOOD 20 mg/dL (7-18)
--- NOTE | 2018-01-15 07:30 | NUR ---
INITIAL RECEIVED PATIENT IN BED, WITH EYES OPEN, ON VENT SETTINGS C-MODE, VT-400,PEEP-5, FIO2-40%. NO S/S OF SOB/ACUTE DISTRESS NOTED. TOLERATING VENT SETTINGS WELL, GTF INFUSING TOLERATED WELL, JOSE MIDLINE IN PLACE INTACT AND PATENT, F/C DRAINING YELLOW URINE BY GRAVITY, NO HEMATURIA NOTED AT THIS TIME, ON ACUTE MEDICAL RESTRAINS, CIRCULATION WNL, NO ABNORMALITY NOTED AT SITE, NO BRUISES NOTED, RELEASE AT THIS TIME, PATIENT CALM, AND COOPERATIVE WITH CARE NO AGITATION OR PULLING TUBES AT THIS TIME, NOTED DRY AND CLEAN TACT. BED IN LOW POSITION ALARMS DRIER TRANSFER CAR OPERATOR POWELL NEXT TO PT.
[2018-01-15 08:00] VITALS: BP 99/54
[2018-01-15] MEDS: MECLIZINE HCL 12.5 MG TABLET GT SCH (09:00)
[2018-01-15 09:15] LABS: BASOPHILS % (AUTO) 0.4 % (0.0-2.0); EOSINOPHILS # (AUTO) 0.2 /CMM (0.0-0.7); HEMATOCRIT 30 % (33-45); HEMOGLOBIN 10.2 g/dL (11.5-14.8); LYMPHOCYTES # (AUTO) 1.5 /CMM (0.8-4.8); LYMPHOCYTES % (AUTO) 15.2 % (20.0-44.0); MEAN CORPUSCULAR HEMOGLOBIN 31 PG (26.0-33.0); MEAN CORPUSCULAR HGB CONC 34 g/dl (31.0-36.0); MEAN CORPUSCULAR VOLUME 91 fL (82-100); MONOCYTES # (AUTO) 0.9 /CMM (0.1-1.30); NEUTROPHILS % (AUTO) 73.4 % (43.0-81.0); PLATELET COUNT (AUTO) 392 /CMM (150-450); RDW COEFFICIENT OF VARIATION 16.7 (11.5-15.0); RED BLOOD CELL COUNT(AUTO) 3.34 MIL/uL (4.0-5.2); WHITE BLOOD COUNT (AUTO) 9.5 K/uL (4.3-11.0)
[2018-01-15] MEDS: PANTOPRAZOLE 40 MG VIAL IV SCH (09:53)
[2018-01-15] MEDS: CARVEDILOL 6.25 MG TABLET GT SCH (09:54)
[2018-01-15 12:00] VITALS: BP 97/38
--- NOTE | 2018-01-15 12:05 | NUR ---
RT RT RECD PT TRACH ON ORDERED VENT SETTING ELENI WELL. TRACH INTACT AND SECURED. VENT PLUGGED IN RED OUTLET. ALARMS ON AND AUDIBLE. TX GIVEN ELENI WELL NO ADVERSE REACTION NOTED ATT. SX SMALL YELLOW SECRETIONS. NO RESP DISTRESS ATT WILL CONTINUE TO MONITOR
[2018-01-15] MEDS: POLYETHYLENE GLYCOL 3350 17 GM POWD.PACK GT SCH (12:52)
== END 2018-01-15 13:30 | DRG 870 ==
LOC: ER 21:05 → TELE-TD 01-04 00:35 → TELE1 01-04 13:19
PROVIDERS: ADMIT Internal Medicine Nephrology; ATTEND Internal Medicine
PROC: 5A1955Z Respiratory Ventilation, Greater than 96 Consecutive Hours (ICD-10-PCS; principal; 2018-01-04)
PROC: 30233N1 Transfusion of Nonautologous Red Blood Cells into Peripheral Vein, Percutaneous Approach (ICD-10-PCS; 2018-01-06)
PROC: 05H533Z Insertion of Infusion Device into Right Subclavian Vein, Percutaneous Approach (ICD-10-PCS; 2018-01-07)
PROC: B546ZZA Ultrasonography of Right Subclavian Vein, Guidance (ICD-10-PCS; 2018-01-07)
PROC: 05H633Z Insertion of Infusion Device into Left Subclavian Vein, Percutaneous Approach (ICD-10-PCS; 2018-01-12)
PROC: B547ZZA Ultrasonography of Left Subclavian Vein, Guidance (ICD-10-PCS; 2018-01-12)
DX: A41.9 Sepsis, unspecified organism (principal); I21.A1 Myocardial infarction type 2; G93.40 Encephalopathy, unspecified; Z99.11 Dependence on respirator [ventilator] status; J96.10 Chronic respiratory failure, unspecified whether with hypoxia or hypercapnia; G61.0 Guillain-Barre syndrome; E46 Unspecified protein-calorie malnutrition; J18.9 Pneumonia, unspecified organism; J96.11 Chronic respiratory failure with hypoxia; B37.49 Other urogenital candidiasis; E87.2 Acidosis; K42.0 Umbilical hernia with obstruction, without gangrene; N39.0 Urinary tract infection, site not specified; K56.7 Ileus, unspecified; N13.2 Hydronephrosis with renal and ureteral calculous obstruction; K56.600 Partial intestinal obstruction, unspecified as to cause; K31.6 Fistula of stomach and duodenum; E87.0 Hyperosmolality and hypernatremia; K92.0 Hematemesis; K59.39 Other megacolon; Z68.1 Body mass index [BMI] 19.9 or less, adult; Z93.0 Tracheostomy status; Z93.1 Gastrostomy status; D64.9 Anemia, unspecified; E03.9 Hypothyroidism, unspecified; E78.5 Hyperlipidemia, unspecified; E87.6 Hypokalemia; F03.90 Unspecified dementia, unspecified severity, without behavioral disturbance, psychotic disturbance, mood disturbance, and anxiety; I10 Essential (primary) hypertension; R13.10 Dysphagia, unspecified; Z79.82 Long term (current) use of aspirin; Z79.899 Other long term (current) drug therapy; K20.9 Esophagitis, unspecified; Z87.440 Personal history of urinary (tract) infections; Y95 Nosocomial condition; K76.0 Fatty (change of) liver, not elsewhere classified; K57.30 Diverticulosis of large intestine without perforation or abscess without bleeding; N21.0 Calculus in bladder; Z22.322 Carrier or suspected carrier of Methicillin resistant Staphylococcus aureus; Z86.14 Personal history of Methicillin resistant Staphylococcus aureus infection; D63.8 Anemia in other chronic diseases classified elsewhere; E66.01 Morbid (severe) obesity due to excess calories
CPT/HCPCS: 31720; 36415; 36569; 36600; 71045-TC; 74018; 80048-TC; 80053-TC; 80076-TC; 80202-TC; 81000-TC; 82272-TC; 82306; 82668; 82728-TC; 82746; 82803-TC; 83540-TC; 83605-TC; 83615-TC; 83735-TC; 84100-TC; 84443-TC; 84484-TC; 84550-TC; 85025-TC; 85045-TC; 85730-TC; 86850-TC; 86921-TC; 87040-TC; 87081-TC; 87086-TC; 93307-TC; 94002-TC; 94003-TC; 94760-TC; 94762-TC; 99082-TC; A4216; A4606; A4623; A6403; C9113; J1450; J2405; J2543; J2765; J3370; J3480; J3490; J7030; J7050; J7060; J7070; J8597; P9016-BL; Q0162; Q9967; Z7610

== ENCOUNTER 2018-01-15 13:43 | Inpatient (IN) | END 2018-11-12 23:59 | DRG 166 | DX: J96.11 Chronic respiratory failure with hypoxia (principal); A41.9 Sepsis, unspecified organism; Z99.11 Dependence on respirator [ventilator] status; G93.40 Encephalopathy, unspecified; K92.2 Gastrointestinal hemorrhage, unspecified; K56.7 Ileus, unspecified; R40.3 Persistent vegetative state; E87.0 Hyperosmolality and hypernatremia; K31.6 Fistula of stomach and duodenum; F33.9 Major depressive disorder, recurrent, unspecified; B37.49 Other urogenital candidiasis; J95.851 Ventilator associated pneumonia; K94.23 Gastrostomy malfunction; J96.21 Acute and chronic respiratory failure with hypoxia; J96.12 Chronic respiratory failure with hypercapnia; E03.9 Hypothyroidism, unspecified; E78.5 Hyperlipidemia, unspecified; I10 Essential (primary) hypertension; D64.9 Anemia, unspecified; B35.1 Tinea unguium; K42.9 Umbilical hernia without obstruction or gangrene; Z87.440 Personal history of urinary (tract) infections; F39 Unspecified mood [affective] disorder; L08.9 Local infection of the skin and subcutaneous tissue, unspecified; G65.0 Sequelae of Guillain-Barre syndrome; L97.509 Non-pressure chronic ulcer of other part of unspecified foot with unspecified severity; Y84.8 Other medical procedures as the cause of abnormal reaction of the patient, or of later complication, without mention of misadventure at the time of the procedure; Y82.8 Other medical devices associated with adverse incidents; Y92.129 Unspecified place in nursing home as the place of occurrence of the external cause; Y73.8 Miscellaneous gastroenterology and urology devices associated with adverse incidents, not elsewhere classified; Z74.01 Bed confinement status; R13.10 Dysphagia, unspecified; T17.990A Other foreign object in respiratory tract, part unspecified in causing asphyxiation, initial encounter; J96.22 Acute and chronic respiratory failure with hypercapnia ==

== ENCOUNTER 2018-03-10 18:49 | Inpatient (IN) | payer MEDICARE, OTHER ==
[~2018-03-10] VITALS: Ht 157.5 cm; Wt 54.4 kg
[2018-03-10] VITALS: BP 104/60
--- NOTE | 2018-03-10 17:55 | NUR ---
PT TRANSFERRED FROM SUB ACUTE UNIT, FOR SOB/RESP DISTRESS, TACHYPNEA AND DESAT FROM REPORT RECEIVED BY RN. RECEIVED PT TRACH, PLACED ON MECHANICAL VENT (ON SETTINGS FROM SUB ACUTE) AWAITING VENT SETTING ORDERS FROM DR KOCH. RN AND MD BISWAS. AMBU BAG AT BEDSIDE, AIRWAY PATENT AND SECURE,. PLUGGED VENT ON RED OUTLET. ALARMS SET AND AUDIBLE. AT THIS TIME PT IS NOT HAVING SOB/RESP DISTRESS. PT SPO2: 100%, RESP RATE: 19. WILL CONTINUE TO MONITOR PT.
[~2018-03-10 18:49] MED LIST changes: +ACET1TAB12 GT; +ACET650S11 RC; -ASPI-1169 GT; +CARV6.252 GT; +CLON1PAT2 TD; -ENOX40DI SQ; +FERR220S17 GT; -FERR220S2 GT; -METO5SOL2 GT; +METO5VIA6 IV; +MUPI22OI7; -NS C250O2 GT; +NUTR150016 GT; -PANT40SU2 GT; +PANT40VI IV; +PIPE2.255 IV; +PIPE3.376 IV; +RXVAN XX; +SIME40DR2 GT; +SUCR1ORA4 GT; -ZINC220C8 GT
--- NOTE | 2018-03-10 19:05 | NUR ---
RECEIVED REPORT FROM RAMONA SALVADOR FOR LOCO.
[2018-03-10] MEDS ORDERED: DULO20CA GT (19:20)
[2018-03-10] MEDS ORDERED: LACT-209 GT (19:20)
[2018-03-10] MEDS ORDERED: METO5SOL2 GT (19:20)
[2018-03-10] MEDS ORDERED: PANT40SU2 GT (19:20)
--- NOTE | 2018-03-10 19:37 | NUR ---
PT SENT FROM SUB ACUTE FOR EPISODES OF DESATURATION. PT IS AAOX0. PT TRACHED AND VENTED. VENT SETTING AC14, 450, 50%, PEEP5, SPO2 91%. PT'S FAMILY BEDSIDE. NO S/S OF ACUTE DISTRESS NOTED. RESP EVEN AND UNLABORED. PT PLACED ON MONITOR AND POX. PT SAFETY AND COMFORT MEASURES IN PLACE. AWAITING MD FOR EVAL.
[2018-03-10] MEDS ORDERED: IV NS 0.9% 500 ML BAG IV ONE (20:00)
--- NOTE | 2018-03-10 20:16 | NUR ---
CALLED LAB FOR BLOOD DRAW. URINE SAMPLE COLLECTED AND CALLED LAB FOR PICKUP
[2018-03-10 20:37] LABS: BASOPHILS % (AUTO) 0.2 % (0.0-2.0); EOSINOPHILS % (AUTO) 1.6 % (0.0-6.0); HEMATOCRIT 24 % (33-45); HEMOGLOBIN 8.1 g/dL (11.5-14.8); LYMPHOCYTES # (AUTO) 1.3 /CMM (0.8-4.8); LYMPHOCYTES % (AUTO) 14.5 % (20.0-44.0); MEAN CORPUSCULAR HGB CONC 33 g/dl (31.0-36.0); MEAN CORPUSCULAR VOLUME 88 fL (82-100); MONOCYTES # (AUTO) 0.7 /CMM (0.1-1.30); MONOCYTES % (AUTO) 7.8 % (2.0-12.0); NEUTROPHILS % (AUTO) 75.9 % (43.0-81.0); PLATELET COUNT (AUTO) 303 /CMM (150-450); RDW COEFFICIENT OF VARIATION 15.4 (11.5-15.0); RED BLOOD CELL COUNT(AUTO) 2.79 MIL/uL (4.0-5.2); WHITE BLOOD COUNT (AUTO) 9.1 K/uL (4.3-11.0)
[2018-03-10 20:56] LABS: TROPONIN I < 0.017 ng/mL (0.00-0.056)
[2018-03-10 21:01] LABS: ALANINE AMINOTRANSFERASE 27 U/L (12-78); ALBUMIN 2.5 g/dL (3.4-5.0); ALKALINE PHOSPHATASE 74 U/L (46-116); ASPARTATE AMINOTRANSFERASE 19 U/L (15-37); B-TYPE NATRIURETIC PEPTIDE 689 PG/ML (0-125); BILIRUBIN,DIRECT 0.1 mg/dL (0.0-0.2); BILIRUBIN,TOTAL 0.3 mg/dL (0.2-1.0); CALCIUM, SERUM 8.3 mg/dL (8.5-10.1); CARBON DIOXIDE 30 mmol/L (21-32); CHLORIDE 102 mmol/L (98-107); CREATININE 0.6 mg/dL (0.6-1.3); GLUCOSE 122 mg/dL (74-106); POTASSIUM 3.8 mmol/L (3.5-5.1); SODIUM SERUM 138 mmol/L (136-145); TOTAL PROTEIN, SERUM 6.6 g/dL (6.4-8.2); UREA NITROGEN, BLOOD 22 mg/dL (7-18)
[2018-03-10 21:09] LABS: APPEARANCE,URINE Clear (CLEAR); BILIRUBIN,URINE Negative (NEGATIVE); BLOOD, URINE Trace-intact Ery/uL (NEGATIVE); COLOR,URINE Yellow (YELLOW); KETONES,URINE Negative (NEGATIVE); LEUKOCYTE ESTERASE ,URINE Trace (NEGATIVE); NITRITE, URINE Negative (NEGATIVE); PH,URINE 7.5 (5.0-8.0); PROTEIN,URINE 30 mg/dl (NEGATIVE); UGLUCOSE Negative (NEGATIVE); UROBILINOGEN,URINE 0.2 EU/dL (0.2)
[2018-03-10 21:18] LABS: BACTERIA,URINE Few /HPF (None Seen); MUCUS,URINE Few /LPF (None Seen); SQUAMOUS EPITHELIAL CELL,UR Few /HPF (None Seen)
[2018-03-10 21:25] LABS: BASOPHILS % (AUTO) 0.2 % (0.0-2.0); EOSINOPHILS % (AUTO) 1.9 % (0.0-6.0); HEMATOCRIT 25 % (33-45); HEMOGLOBIN 8.3 g/dL (11.5-14.8); LYMPHOCYTES # (AUTO) 1.3 /CMM (0.8-4.8); LYMPHOCYTES % (AUTO) 15.6 % (20.0-44.0); MEAN CORPUSCULAR HGB CONC 33 g/dl (31.0-36.0); MEAN CORPUSCULAR VOLUME 88 fL (82-100); MONOCYTES # (AUTO) 0.7 /CMM (0.1-1.30); MONOCYTES % (AUTO) 8.1 % (2.0-12.0); NEUTROPHILS # (AUTO) 6.3 /CMM (1.8-8.9); NEUTROPHILS % (AUTO) 74.2 % (43.0-81.0); PLATELET COUNT (AUTO) 262 /CMM (150-450); RDW COEFFICIENT OF VARIATION 15.3 (11.5-15.0); RED BLOOD CELL COUNT(AUTO) 2.83 MIL/uL (4.0-5.2); WHITE BLOOD COUNT (AUTO) 8.5 K/uL (4.3-11.0)
--- NOTE | 2018-03-10 21:29 | NUR ---
CALLED [facility], SUPPLY ROOM CLERK WAS PAGED.
[2018-03-10] MEDS ORDERED: ALBUTEROL FS 2.5 MG/3 ML VIAL.NEB NEB PRN (21:30)
[2018-03-10] MEDS ORDERED: ACETAMINOPHEN 325 MG TABLET MC PRN (21:30)
[2018-03-10] MEDS ORDERED: MAGNESIUM HYDROXIDE 30 ML UDC GT PRN (21:30)
[2018-03-10] MEDS ORDERED: JEVITY 1.2 CAL 1,000 ML BOTTLE GT SCH (21:30)
[2018-03-10] MEDS ORDERED: CEFTRIAXONE 1 G in IV D5W 50 ML IV SCH (21:30)
[2018-03-10] MEDS ORDERED: CLONIDINE HCL 0.2MG/24H PTWK 1 EA PATCH TD SCH (21:30)
[2018-03-10] MEDS ORDERED: IPRATROPIUM NEB FS 0.5 MG/2.5 ML AMPUL.NEB IH PRN (21:30)
[2018-03-10] MEDS ORDERED: TRAMADOL HCL 50 MG TABLET GT PRN (21:30)
[2018-03-10] MEDS ORDERED: ONDANSETRON HCL/PF 4 MG/2 ML VIAL IVP PRN (21:30)
[2018-03-10] MEDS ORDERED: CLONIDINE HCL 0.1 MG TABLET GT PRN (21:30)
[2018-03-10] MEDS ORDERED: SIMETHICONE SUSP 40 MG/0.6 ML BOTTLE GT PRN (21:30)
[2018-03-10] MEDS ORDERED: Z GUARD REMEDY 2 OZ OINT TP PRN (21:30)
--- NOTE | 2018-03-10 21:30 | NUR ---
MD NOTIFIED OF INABILITY TO PERFORM ORTHOSTATIC VITAL SIGNS ON PT. MD TO CANCEL ORDER FOR ORTHOSTATIC VITALS.
[2018-03-10] MEDS ORDERED: ASCORBIC ACID SYRUP 500 MG/5 ML UDC GT SCH (22:00)
--- NOTE | 2018-03-10 22:05 | NUR ---
REPORT GIVEN BY DEMAR ADAN TO PROMOS EXECUTIVE PRODUCER FOR LOCO. DEMAR ADAN TRANSPORTING PT WITH EMT AND RT TO TELE 114-2.
[2018-03-10 22:40] VITALS: BP 108/49
[2018-03-10 23:00] VITALS: BP 108/49
[2018-03-11] VITALS: BP 104/60
[2018-03-11] MEDS ORDERED: ALBUTEROL FS 2.5 MG/3 ML VIAL.NEB NEB SCH (01:30)
[2018-03-11] MEDS: IPRATROPIUM NEB FS 0.5 MG/2.5 ML AMPUL.NEB IH SCH ×4 (01:30→19:22)
[2018-03-11] MEDS: METOCLOPRAMIDE HCL 10 MG/10 ML UDC GT SCH ×5 (02:30→22:58)
[2018-03-11] MEDS: SENNOSIDES 8.6 MG TABLET GT SCH ×2 (02:30→22:51)
[2018-03-11] MEDS: DULOXETINE HCL 20 MG CAPSULE.DR GT SCH ×2 (02:30→22:50)
[2018-03-11 04:00] VITALS: BP 113/56
[2018-03-11] MEDS: SUCRALFATE 1 G/10 ML UDC GT SCH ×3 (06:50→22:58)
[2018-03-11] MEDS: LEVOTHYROXINE SODIUM 25 MCG TABLET GT SCH (06:50)
--- NOTE | 2018-03-11 07:59 | NUR ---
ELEVATED GUARD NOTES RECEIVED PT IN BED. RESTING COMFORTABLY WITH TRACH VENT SETTING ORDERED. AMBU BAG AT BED SIDE. TELE MONITOR HR 60. GIL CATHETER IN PLACE WITH GRAVITY YELLOW COLOR URINE. ON G TUBE FEEDING. KEEP ELEVATED AT ALL TIMES. ASPIRATION WITH CAUTION. L UPPER ARM PICC LINE IN PLACE. BED LOCKED IN LOWER POSITION. PT NOT IN DISTRESS. RT AT BED SIDE. WILL CONTINUE TO MONITOR. CALL LIGHT IN WITHIN REACH
[2018-03-11 08:00] VITALS: BP_SYST 113; BP_SYST 136; BP_DIAS 38; BP_DIAS 56
[2018-03-11] MEDS ORDERED: PANTOPRAZOLE 40 MG VIAL IV SCH (09:00)
[2018-03-11] MEDS: POLYETHYLENE GLYCOL 3350 17 GM POWD.PACK GT SCH (09:08)
[2018-03-11] MEDS: MECLIZINE HCL 12.5 MG TABLET GT SCH ×2 (09:08→22:51)
[2018-03-11] MEDS: PANTOPRAZOLE 40 MG/PACK PACK GT SCH ×2 (09:08→17:02)
[2018-03-11] MEDS: ASCORBIC ACID 500 MG TABLET GT SCH (09:08)
[2018-03-11] MEDS: FERROUS SULFATE UDC 300 MG/5 ML UDC GT SCH (09:09)
[2018-03-11 12:00] VITALS: BP_SYST 136; BP_SYST 171; BP_DIAS 38; BP_DIAS 76
--- NOTE | 2018-03-11 12:01 | NUR ---
DIGITIZER NOTE DUPLER STUDY BOTH LEGS DONE ORDERED
--- NOTE | 2018-03-11 13:31 | NUR ---
COMMERCIAL DIVER NOTES CONTINUED CARE. NO DISTRESS. WILL CONTINUE TO MONITOR
[2018-03-11 16:00] VITALS: BP_SYST 107; BP_SYST 171; BP_DIAS 35; BP_DIAS 76
--- NOTE | 2018-03-11 17:01 | NUR ---
no vent changes made. Addendum: 03/11/18 at 1701 by DRU ZHAO RT Amended: Links added.
--- NOTE | 2018-03-11 18:46 | NUR ---
LABORER DRYING DEPARTMENT NOTE CONT ON GTUBE FEEDING ORDERED , ON VENT SETTING ORDERED, WILL CONT TO MONITOR CLOSELY .
[2018-03-11 20:00] VITALS: BP 106/48
--- NOTE | 2018-03-11 20:19 | NUR ---
RN NOTES RECEIVED PATIENT IN BED WITH NO RESPIRATORY DISTRESS OR SHORTNESS OF BREATH. BREATHING EVEN AND UNLABORED. VENT SETTING TOLERATED WELL. NO PHYSICAL MANIFESTATION OF PAIN OR DISCOMFORT. GIL CATHETER IN PLACE DRAINING CLEAR YELLOW WITH NO FOUL ODOR URINE. GTUBE PATENT, FEEDING WELL TOLERATED. HOB ELEVATED. KEPT CLEAN AND DRY. WILL CONTINUE TO MONITOR.
[2018-03-11] MEDS ORDERED: CYANOCOBALAMIN 500 MCG TABLET GT SCH (22:00)
[2018-03-12] VITALS: BP 104/35
[2018-03-12] MEDS: IPRATROPIUM NEB FS 0.5 MG/2.5 ML AMPUL.NEB IH SCH ×3 (01:18→13:46)
[2018-03-12 04:00] VITALS: BP 111/45
[2018-03-12] MEDS: LEVOTHYROXINE SODIUM 25 MCG TABLET GT SCH (05:33)
[2018-03-12] MEDS: SUCRALFATE 1 G/10 ML UDC GT SCH ×2 (05:33→12:02)
[2018-03-12] MEDS: METOCLOPRAMIDE HCL 10 MG/10 ML UDC GT SCH ×2 (05:33→12:02)
--- NOTE | 2018-03-12 06:55 | NUR ---
RN CLOSING NOTES NO SIGNIFICANT CHANGE IN CONDITION. NO DISTRESS NOTED. BREATHING EVEN AND UNLABORED. NO PHYSICAL MANIFESTATION OF PAIN OR DISCOMFORT. VITAL SIGNS WNL. KEPT CLEAN AND DRY. WILL ENDORSE TO AM SHIFT FOR CONTINUITY OF CARE.
--- NOTE | 2018-03-12 07:31 | NUR ---
RN NOTES RECEIVED PT FROM UNIFORMS SALES REPRESENTATIVE, VENT/TRACH DEPENDENT. OPENS EYES TO NAME, NONVERBAL. TOLERATING VENT SETTINGS NO SOB OR DISTRESS NOTED. SR ON THE TELE ALBERTO HR 66. GIL DRAINING TO GRAVITY YELLOW IN COLOR. JOSE MIDLINE INTACT WITH NO IVF. GTF AT 65ML/HR. BED LOCKED AND IN LOWEST POSITION, CALL LIGHT WITHIN REACH, SIDE RAILS UPX3, WILL CONT TO ALBERTO.
[2018-03-12 08:00] VITALS: BP 112/88
[2018-03-12] MEDS: MECLIZINE HCL 12.5 MG TABLET GT SCH (08:10)
[2018-03-12] MEDS: FERROUS SULFATE UDC 300 MG/5 ML UDC GT SCH (08:10)
[2018-03-12] MEDS: PANTOPRAZOLE 40 MG/PACK PACK GT SCH (08:10)
[2018-03-12] MEDS: POLYETHYLENE GLYCOL 3350 17 GM POWD.PACK GT SCH (08:10)
[2018-03-12] MEDS: ASCORBIC ACID 500 MG TABLET GT SCH (08:10)
[2018-03-12 12:00] VITALS: BP 107/53
--- NOTE | 2018-03-12 16:33 | NUR ---
RN NOTES PT DISCHARGED TO [facility] SUB[facility] IN STABLE CONDITION.
== END 2018-03-12 16:25 | DRG 208 ==
LOC: ER 18:52 → TELE1 22:12
PROVIDERS: ADMIT Nurse Practitioner Acute Care; ATTEND Internal Medicine
PROC: 5A1945Z Respiratory Ventilation, 24-96 Consecutive Hours (ICD-10-PCS; principal; 2018-03-10)
DX: T17.990A Other foreign object in respiratory tract, part unspecified in causing asphyxiation, initial encounter (principal); J96.21 Acute and chronic respiratory failure with hypoxia; A41.9 Sepsis, unspecified organism; G93.40 Encephalopathy, unspecified; Z99.11 Dependence on respirator [ventilator] status; J18.9 Pneumonia, unspecified organism; G61.0 Guillain-Barre syndrome; E87.0 Hyperosmolality and hypernatremia; K56.7 Ileus, unspecified; E03.9 Hypothyroidism, unspecified; E78.5 Hyperlipidemia, unspecified; Z87.440 Personal history of urinary (tract) infections; X58.XXXA Exposure to other specified factors, initial encounter; Y92.129 Unspecified place in nursing home as the place of occurrence of the external cause; R13.10 Dysphagia, unspecified; I10 Essential (primary) hypertension; D64.9 Anemia, unspecified; Z79.899 Other long term (current) drug therapy; Z93.1 Gastrostomy status; Z93.0 Tracheostomy status
CPT/HCPCS: 31720; 36415; 71045-TC; 80048-TC; 80076-TC; 81000-TC; 83605-TC; 83880; 84484-TC; 85025-TC; 86850-TC; 87040-TC; 87081-TC; 87086-TC; 93970-TC; 94003-TC; 99082-TC; A4606; J0696; J7040; J7060; J8597; Z7610

== ENCOUNTER 2018-03-27 13:50 | Day surgery (SDC) | payer MEDICARE, OTHER ==
[~2018-03-27 13:50] MED LIST changes: -ALLA266C2 TP; -CARV6.252 GT; +DULO20CA GT; -DULO60CA63 GT; +LACT-209 GT; +METO5SOL2 GT; -METO5VIA6 IV; -MUPI22OI7; -NUTR150016 GT; +PANT40SU2 GT; -PANT40VI IV; -PIPE2.255 IV; -PIPE3.376 IV
== END 2018-03-27 15:18 ==
LOC: DS 13:50
PROVIDERS: ATTEND Surgery
DX: K31.6 Fistula of stomach and duodenum (principal); K43.2 Incisional hernia without obstruction or gangrene; L02.219 Cutaneous abscess of trunk, unspecified; E78.5 Hyperlipidemia, unspecified; E03.9 Hypothyroidism, unspecified; F32.9 Major depressive disorder, single episode, unspecified; I10 Essential (primary) hypertension; F41.9 Anxiety disorder, unspecified; Z93.1 Gastrostomy status; Z93.0 Tracheostomy status; Z79.2 Long term (current) use of antibiotics; Z79.891 Long term (current) use of opiate analgesic; Z79.899 Other long term (current) drug therapy
CPT/HCPCS: 88305-TC; J3490

== ENCOUNTER 2018-11-13 | Inpatient (IN) | payer MEDICARE, OTHER ==
[~2018-11-13] VITALS: Ht 154.9 cm; Wt 58.1 kg
[~2018-11-13] MED LIST changes: -FERR220S17 GT; +FERR220S18 GT; -SENN-167 GT; +SENN-168 GT
[2018-11-14] MEDS ORDERED: HYDROCODONE/APAP 5/325MG 1 EACH TABLET GT PRN (10:00)
[2018-11-14] MEDS ORDERED: ALBUTEROL HALF STRENGTH 1.25 MG/3 ML VIAL.NEB NEB PRN (10:00)
[2018-11-14] MEDS ORDERED: SIMETHICONE SUSP 40 MG/0.6 ML BOTTLE GT PRN (10:00)
[2018-11-14] MEDS ORDERED: IPRATROPIUM NEB FS 0.5 MG/2.5 ML AMPUL.NEB NEB PRN (10:00)
[2018-11-14] MEDS: CYANOCOBALAMIN 500 MCG TABLET GT SCH ×2 (10:11→20:42)
--- NOTE | 2018-11-14 10:11 | NUR ---
Please see resident's previous account [phone] for all assessments and nurses notes. Originally admitted on 02/08/2016; readmission 03/12/2018.
[2018-11-14] MEDS ORDERED: ONDANSETRON HCL 4 MG/5 ML SOLUTION GT PRN (10:30)
[2018-11-14] MEDS ORDERED: MAGNESIUM HYDROXIDE 30 ML UDC GT PRN (10:30)
[2018-11-14] MEDS ORDERED: ACETAMINOPHEN RC PRN (10:30)
[2018-11-14] MEDS ORDERED: [UNRECOGNIZED DRUG - OTHER] RC PRN (10:30)
[2018-11-14] MEDS: POLYETHYLENE GLYCOL 3350 17 GM POWD.PACK GT SCH (10:42)
[2018-11-14] MEDS: MECLIZINE HCL 12.5 MG TABLET GT SCH ×2 (10:42→20:42)
[2018-11-14] MEDS: CHOLECALCIFEROL 1,000 UNIT TABLET (VIT D3) GT SCH (10:42)
[2018-11-14] MEDS: FERROUS SULFATE - FOR SA ONLY 330 MG/7.5 ML UDC GT SCH ×2 (10:42→20:42)
[2018-11-14] MEDS: SUCRALFATE 1 G/10 ML UDC GT SCH ×3 (10:42→20:42)
--- NOTE | 2018-11-14 10:47 | NUR ---
Please see resident's previous account [phone] for Social Service assessments, evaluations and notes.
[2018-11-14 11:39] VITALS: BP 134/72
[2018-11-14] MEDS: METOCLOPRAMIDE HCL 10 MG TABLET GT SCH ×3 (12:00→23:07)
[2018-11-14] MEDS ORDERED: SUCRALFATE 1 G/10 ML UDC GT SCH (13:00)
[2018-11-14] MEDS: ALBUTEROL HALF STRENGTH 1.25 MG/3 ML VIAL.NEB NEB SCH ×2 (13:19→19:55)
[2018-11-14] MEDS: IPRATROPIUM NEB FS 0.5 MG/2.5 ML AMPUL.NEB NEB SCH ×2 (13:19→19:55)
[2018-11-14] MEDS: JEVITY 1.2 CAL 1,000 ML BOTTLE GT PRN (18:10)
[2018-11-14 19:55] VITALS: BP 138/65
[2018-11-14 20:00] VITALS: BP 138/65
[2018-11-14] MEDS: HYDROGEN PEROXIDE 480 ML BOTTLE TP SCH (20:42)
[2018-11-14] MEDS: Z GUARD REMEDY 4 OZ OINT TP SCH (20:42)
[2018-11-14] MEDS: ASCORBIC ACID 500 MG TABLET GT SCH (20:42)
[2018-11-14] MEDS ORDERED: CYANOCOBALAMIN 500 MCG TABLET GT SCH (21:00)
[2018-11-14] MEDS ORDERED: MECLIZINE HCL 12.5 MG TABLET GT SCH (21:00)
[2018-11-14] MEDS ORDERED: FERROUS SULFATE - FOR SA ONLY 330 MG/7.5 ML UDC GT SCH (21:00)
[2018-11-14] MEDS: SENNOSIDES 8.6 MG TABLET GT SCH (21:42)
[2018-11-15] MEDS: IPRATROPIUM NEB FS 0.5 MG/2.5 ML AMPUL.NEB NEB SCH ×4 (02:02→19:59)
[2018-11-15] MEDS: ALBUTEROL HALF STRENGTH 1.25 MG/3 ML VIAL.NEB NEB SCH ×4 (02:02→19:59)
[2018-11-15] MEDS: SUCRALFATE 1 G/10 ML UDC GT SCH ×3 (05:00→21:42)
[2018-11-15] MEDS: LEVOTHYROXINE SODIUM 25 MCG TABLET GT SCH (05:01)
[2018-11-15] MEDS: METOCLOPRAMIDE HCL 10 MG TABLET GT SCH ×3 (05:01→18:09)
[2018-11-15] MEDS: OMEPRAZOLE 20 MG CAPSULE.DR GT SCH (05:01)
[2018-11-15 07:35] VITALS: BP 127/61
--- NOTE | 2018-11-15 08:22 | NUR ---
RT NOTE RECEIVED PT ON HT-70, VENT PLUGGED INTO RED OUTLET, SXD MODERATE AMOUNT OF THICK PALE YELLOW SECRETIONS, AMBUBAG AT HOB, TXS GIVEN ORDERED NO ADVERSE REACTION NOTED PT STABLE, WILL MONITOR CLOSELY
[2018-11-15] MEDS: CHOLECALCIFEROL 1,000 UNIT TABLET (VIT D3) GT SCH (08:37)
[2018-11-15] MEDS: FERROUS SULFATE - FOR SA ONLY 330 MG/7.5 ML UDC GT SCH ×2 (08:37→21:42)
[2018-11-15] MEDS: POLYETHYLENE GLYCOL 3350 17 GM POWD.PACK GT SCH (08:37)
[2018-11-15] MEDS: Z GUARD REMEDY 4 OZ OINT TP SCH ×2 (08:37→21:42)
[2018-11-15] MEDS: BACI/NEOM/POLY B OINT PKT 1 UDPKT PACKET TP SCH (08:37)
[2018-11-15] MEDS: MECLIZINE HCL 12.5 MG TABLET GT SCH ×2 (08:37→21:42)
[2018-11-15] MEDS: ZINC OXIDE 30 GM TUBE TP SCH (08:37)
[2018-11-15] MEDS: HYDROGEN PEROXIDE 480 ML BOTTLE TP SCH ×2 (08:37→21:42)
[2018-11-15] MEDS ORDERED: CHOLECALCIFEROL 1,000 UNIT TABLET (VIT D3) GT SCH (09:00)
[2018-11-15] MEDS: JEVITY 1.2 CAL 1,000 ML BOTTLE GT PRN (18:41)
[2018-11-15 20:01] VITALS: BP 115/69
--- NOTE | 2018-11-15 20:30 | NUR ---
Seen By AJ Hankins no new order.
[2018-11-15] MEDS: CYANOCOBALAMIN 500 MCG TABLET GT SCH (21:42)
[2018-11-15] MEDS: SENNOSIDES 8.6 MG TABLET GT SCH (21:42)
[2018-11-15] MEDS: ASCORBIC ACID 500 MG TABLET GT SCH (21:42)
[2018-11-16] MEDS: METOCLOPRAMIDE HCL 10 MG TABLET GT SCH ×4 (00:39→18:31)
[2018-11-16] MEDS: IPRATROPIUM NEB FS 0.5 MG/2.5 ML AMPUL.NEB NEB SCH ×4 (01:21→19:55)
[2018-11-16] MEDS: ALBUTEROL HALF STRENGTH 1.25 MG/3 ML VIAL.NEB NEB SCH ×4 (01:21→19:55)
[2018-11-16] MEDS: SUCRALFATE 1 G/10 ML UDC GT SCH ×3 (05:00→20:08)
[2018-11-16] MEDS: OMEPRAZOLE 20 MG CAPSULE.DR GT SCH (06:11)
[2018-11-16] MEDS: LEVOTHYROXINE SODIUM 25 MCG TABLET GT SCH (06:11)
[2018-11-16] MEDS: CLONIDINE HCL 0.1 MG TABLET GT PRN (06:13)
[2018-11-16] MEDS: JEVITY 1.2 CAL 1,000 ML BOTTLE GT PRN ×2 (06:57→19:30)
[2018-11-16 07:36] VITALS: BP 139/63
[2018-11-16] MEDS: POLYETHYLENE GLYCOL 3350 17 GM POWD.PACK GT SCH (08:35)
[2018-11-16] MEDS: HYDROGEN PEROXIDE 480 ML BOTTLE TP SCH ×2 (08:35→20:08)
[2018-11-16] MEDS: FERROUS SULFATE - FOR SA ONLY 330 MG/7.5 ML UDC GT SCH ×2 (08:35→20:08)
[2018-11-16] MEDS: CHOLECALCIFEROL 1,000 UNIT TABLET (VIT D3) GT SCH (08:35)
[2018-11-16] MEDS: BACI/NEOM/POLY B OINT PKT 1 UDPKT PACKET TP SCH (08:35)
[2018-11-16] MEDS: MECLIZINE HCL 12.5 MG TABLET GT SCH ×2 (08:35→20:08)
[2018-11-16] MEDS: Z GUARD REMEDY 4 OZ OINT TP SCH ×2 (08:36→20:08)
[2018-11-16] MEDS: ZINC OXIDE 30 GM TUBE TP SCH (08:36)
--- NOTE | 2018-11-16 18:46 | NUR ---
Seen by AJ Hankins with new order Multivitamins and Minerals daily.
[2018-11-16] MEDS: ASCORBIC ACID 500 MG TABLET GT SCH (20:08)
[2018-11-16] MEDS: CYANOCOBALAMIN 500 MCG TABLET GT SCH (20:08)
[2018-11-16 20:14] VITALS: BP 129/58
--- NOTE | 2018-11-16 21:46 | NUR ---
RT NOTE PATIENT RECEIVED TRACHED ON MECHANICAL VENTILATION. VENT PLUGGED INTO RED OUTLET. ALARMS ON AND AUDIBLE. TX GIVEN, NO ADVERSE REACTIONS NOTED. SX DONE, MODERATE THICK WHITE SECRETIONS NOTED. PATIENT STABLE. NO DISTRESS NOTED. WILL MONITOR T/O SHIFT. Addendum: 11/16/18 at 2146 by DARRYL BENITES RT Amended: Links added.
[2018-11-16] MEDS: SENNOSIDES 8.6 MG TABLET GT SCH (21:55)
[2018-11-17] MEDS: METOCLOPRAMIDE HCL 10 MG TABLET GT SCH ×4 (00:08→17:03)
[2018-11-17 00:20] VITALS: BP 118/77
[2018-11-17] MEDS: ALBUTEROL HALF STRENGTH 1.25 MG/3 ML VIAL.NEB NEB SCH ×4 (01:39→19:50)
[2018-11-17] MEDS: IPRATROPIUM NEB FS 0.5 MG/2.5 ML AMPUL.NEB NEB SCH ×4 (01:39→19:50)
[2018-11-17] MEDS: LEVOTHYROXINE SODIUM 25 MCG TABLET GT SCH (05:37)
[2018-11-17] MEDS: OMEPRAZOLE 20 MG CAPSULE.DR GT SCH (05:37)
[2018-11-17] MEDS: SUCRALFATE 1 G/10 ML UDC GT SCH ×3 (05:37→20:15)
[2018-11-17 06:17] VITALS: BP 110/77
[2018-11-17] MEDS: POLYETHYLENE GLYCOL 3350 17 GM POWD.PACK GT SCH (08:45)
[2018-11-17] MEDS: FERROUS SULFATE - FOR SA ONLY 330 MG/7.5 ML UDC GT SCH ×2 (08:45→20:15)
[2018-11-17] MEDS: MULTIVITAMIN GT SCH (08:45)
[2018-11-17] MEDS: MINERALS GT SCH (08:45)
[2018-11-17] MEDS: ZINC OXIDE 30 GM TUBE TP SCH (08:45)
[2018-11-17] MEDS: HYDROGEN PEROXIDE 480 ML BOTTLE TP SCH ×2 (08:45→20:16)
[2018-11-17] MEDS: Z GUARD REMEDY 4 OZ OINT TP SCH ×2 (08:45→20:16)
[2018-11-17] MEDS: MECLIZINE HCL 12.5 MG TABLET GT SCH ×2 (08:45→20:15)
[2018-11-17] MEDS: CHOLECALCIFEROL 1,000 UNIT TABLET (VIT D3) GT SCH (08:45)
[2018-11-17] MEDS ORDERED: MULTIVIT W/MINERALS 1 TAB TABLET GT SCH (09:00)
[2018-11-17 09:36] VITALS: BP 107/60
[2018-11-17] MEDS: JEVITY 1.2 CAL 1,000 ML BOTTLE GT PRN (11:18)
[2018-11-17 12:01] VITALS: BP 125/82
[2018-11-17] MEDS: HYDROCODONE/APAP 5/325MG 1 EACH TABLET GT PRN (14:28)
--- NOTE | 2018-11-17 17:02 | NUR ---
RT NOTE PT MECHANICALLY VENTILATED VIA CUFFED TRACHEOSTOMY TUBE. CUFF INFLATED. TRACH TUBE MIDLINE AND SECURE. VENTILATOR SETTINGS PRESCRIBED. ALARMS SET PER PROTOCOL AND AUDIBLE. VENT PLUGGED IN TO RED OUTLET. AMBU BAG AT BED SIDE. NO DISTRESS NOTED. Addendum: 11/17/18 at 1703 by BOOKER MURGUIA RT Amended: Links added.
[2018-11-17 18:09] VITALS: BP 130/75
[2018-11-17] MEDS: ASCORBIC ACID 500 MG TABLET GT SCH (20:16)
[2018-11-17] MEDS: CYANOCOBALAMIN 500 MCG TABLET GT SCH (20:16)
[2018-11-17] MEDS: ACETAMINOPHEN 650 MG/20 ML UDC- SA PATIENTS-PAIN ONLY GT PRN (20:17)
[2018-11-17 20:25] VITALS: BP 133/67
--- NOTE | 2018-11-17 20:32 | NUR ---
PT RCVD TRACH'D ON MECHANICAL VENT WITH CHARTED SETTINGS. HHN TX GIVEN AND NO ADVERSE REACTION NOTED. SX DONE. PT TRACH PATENT AND SECURE. CUFF CHECKED VIA POWER DRIVEN BRUSH MAKER. ALARMS ARE SET AND AUDIBLE. AMBU BAG AT BEDSIDE. VENT PLUGGED INTO RED OUTLET. WILL CONTINUE TO MONITOR. Addendum: 11/17/18 at 2032 by SANAM NIÑO RT Amended: Links added.
[2018-11-17] MEDS: SENNOSIDES 8.6 MG TABLET GT SCH (21:44)
[2018-11-18 00:06] VITALS: BP 144/77
[2018-11-18] MEDS: METOCLOPRAMIDE HCL 10 MG TABLET GT SCH ×5 (00:06→23:49)
[2018-11-18] MEDS: ALBUTEROL HALF STRENGTH 1.25 MG/3 ML VIAL.NEB NEB SCH ×4 (01:10→19:42)
[2018-11-18] MEDS: IPRATROPIUM NEB FS 0.5 MG/2.5 ML AMPUL.NEB NEB SCH ×4 (01:10→19:42)
[2018-11-18] MEDS: JEVITY 1.2 CAL 1,000 ML BOTTLE GT PRN ×2 (02:22→17:46)
[2018-11-18] MEDS: SUCRALFATE 1 G/10 ML UDC GT SCH ×3 (05:29→20:35)
[2018-11-18] MEDS: OMEPRAZOLE 20 MG CAPSULE.DR GT SCH (05:29)
[2018-11-18] MEDS: LEVOTHYROXINE SODIUM 25 MCG TABLET GT SCH (05:29)
[2018-11-18 06:27] VITALS: BP 136/79
[2018-11-18 07:48] VITALS: BP 141/78
[2018-11-18] MEDS: CHOLECALCIFEROL 1,000 UNIT TABLET (VIT D3) GT SCH (09:00)
[2018-11-18] MEDS: ZINC OXIDE 30 GM TUBE TP SCH (09:00)
[2018-11-18] MEDS: HYDROGEN PEROXIDE 480 ML BOTTLE TP SCH ×2 (09:00→20:37)
[2018-11-18] MEDS: Z GUARD REMEDY 4 OZ OINT TP SCH ×2 (09:00→20:37)
[2018-11-18] MEDS: POLYETHYLENE GLYCOL 3350 17 GM POWD.PACK GT SCH (09:52)
[2018-11-18] MEDS: FERROUS SULFATE - FOR SA ONLY 330 MG/7.5 ML UDC GT SCH ×2 (09:52→20:35)
[2018-11-18] MEDS: MECLIZINE HCL 12.5 MG TABLET GT SCH ×2 (09:52→20:35)
[2018-11-18] MEDS: MINERALS GT SCH (09:52)
[2018-11-18] MEDS: MULTIVITAMIN GT SCH (09:52)
[2018-11-18 12:00] VITALS: BP 112/79
[2018-11-18 18:00] VITALS: BP 126/74
[2018-11-18] MEDS: ACETAMINOPHEN 650 MG/20 ML UDC- SA PATIENTS-FEVER ONLY GT PRN (18:10)
[2018-11-18 20:27] VITALS: BP 149/71
[2018-11-18] MEDS: CYANOCOBALAMIN 500 MCG TABLET GT SCH (20:36)
[2018-11-18] MEDS: ASCORBIC ACID 500 MG TABLET GT SCH (20:37)
--- NOTE | 2018-11-18 20:55 | NUR ---
RT PATIENT RECEIVED TRACHED ON [facility] VENT ON CHARTED SETTINGS. NO RESP DISTRESS NOTED. HHN TX GIVEN, NO ADVERSE REACTIONS NOTED. PT SUCTIONED. ALARMS ON AND AUDIBLE. AMBU BAG/BACK UP TRACH @ BEDSIDE. VENT CONNECTED TO RED OUTLET. WILL CONT TO MONITOR. Addendum: 11/18/18 at 2054 by HUMBLE KO RT Amended: Links added.
[2018-11-18] MEDS: SENNOSIDES 8.6 MG TABLET GT SCH (22:23)
[2018-11-19 01:41] VITALS: BP 136/80
[2018-11-19] MEDS: IPRATROPIUM NEB FS 0.5 MG/2.5 ML AMPUL.NEB NEB SCH ×4 (01:54→19:47)
[2018-11-19] MEDS: ALBUTEROL HALF STRENGTH 1.25 MG/3 ML VIAL.NEB NEB SCH ×4 (01:54→19:47)
[2018-11-19] MEDS: SUCRALFATE 1 G/10 ML UDC GT SCH ×3 (05:53→20:33)
[2018-11-19] MEDS: LEVOTHYROXINE SODIUM 25 MCG TABLET GT SCH (05:53)
[2018-11-19] MEDS: OMEPRAZOLE 20 MG CAPSULE.DR GT SCH (05:53)
[2018-11-19] MEDS: METOCLOPRAMIDE HCL 10 MG TABLET GT SCH ×3 (05:53→18:00)
[2018-11-19 06:33] VITALS: BP 131/82
[2018-11-19 08:07] VITALS: BP 131/70
[2018-11-19] MEDS: HYDROGEN PEROXIDE 480 ML BOTTLE TP SCH ×2 (09:00→20:36)
[2018-11-19] MEDS: ZINC OXIDE 30 GM TUBE TP SCH (09:00)
[2018-11-19] MEDS: Z GUARD REMEDY 4 OZ OINT TP SCH ×2 (09:00→20:36)
--- NOTE | 2018-11-19 09:05 | NUR ---
Resident's daughter Cheli White came to the hospital yesterday 11/18/2018 to visit the resident. Cheli completed intake paperwork (patient rights acknowledgement, documentation of preferred intensity of care, conditions of admission, an important message from medicare about your rights, [place] Standard Admission Agreement, and voluntary prior express consent form). Per resident's daughter,she wishes to have the resident changed to DNR code status (NO CPR with supportive care only). She is okay with blood transfusions, antibiotic use, hydration/nutrition tube, IV's, ventilator and oxygen use, and transfer to acute hospital if needed. NO dialysis. parks and recreation worker double checked with the resident's daughter Cheli that she wishes to change the residents' code status to DNR (NO CPR and supportive care only) and she indicated yes. SW indicated to her that code status can be changed by her at any time.
--- NOTE | 2018-11-19 09:18 | NUR ---
RT NOTE RECEIVED PT MECHANICALLY VENTILATED VIA CUFFED TRACHEOSTOMY TUBE. CUFF INFLATED VIA CIRCUIT BOARD DRAFTER. TRACH TUBE MIDLINE AND SECURE. VENTILATOR SETTINGS PRESCRIBED. ALARMS SET PER PROTOCOL AND AUDIBLE. VENT PLUGGED IN TO RED OUTLET. AMBU BAG AT BED SIDE. NO DISTRESS NOTED AT MOMENT. Addendum: 11/19/18 at 0918 by BOOKER MURGUIA RT Amended: Links added.
[2018-11-19] MEDS: FERROUS SULFATE - FOR SA ONLY 330 MG/7.5 ML UDC GT SCH ×2 (09:53→20:34)
[2018-11-19] MEDS: MECLIZINE HCL 12.5 MG TABLET GT SCH ×2 (09:53→20:32)
[2018-11-19] MEDS: POLYETHYLENE GLYCOL 3350 17 GM POWD.PACK GT SCH (09:53)
[2018-11-19] MEDS: CLONIDINE HCL 0.2MG/24H PTWK 1 EA PATCH TD SCH (09:54)
[2018-11-19] MEDS: MINERALS GT SCH (09:55)
[2018-11-19] MEDS: CHOLECALCIFEROL 1,000 UNIT TABLET (VIT D3) GT SCH (09:55)
[2018-11-19] MEDS: MULTIVITAMIN GT SCH (09:55)
[2018-11-19 12:00] VITALS: BP 136/73
[2018-11-19] MEDS: MULTIVIT W/MINERALS 1 TAB TABLET GT SCH (12:45)
[2018-11-19] MEDS: JEVITY 1.2 CAL 1,000 ML BOTTLE GT PRN (17:03)
[2018-11-19 19:06] VITALS: BP 144/76
[2018-11-19 20:27] VITALS: BP 145/64
[2018-11-19] MEDS: ASCORBIC ACID 500 MG TABLET GT SCH (20:35)
[2018-11-19] MEDS: CYANOCOBALAMIN 500 MCG TABLET GT SCH (20:35)
[2018-11-19] MEDS: SENNOSIDES 8.6 MG TABLET GT SCH (22:35)
[2018-11-20 00:41] VITALS: BP 132/70
[2018-11-20] MEDS: METOCLOPRAMIDE HCL 10 MG TABLET GT SCH ×5 (00:41→23:16)
[2018-11-20] MEDS: ALBUTEROL HALF STRENGTH 1.25 MG/3 ML VIAL.NEB NEB SCH ×4 (01:07→19:30)
[2018-11-20] MEDS: IPRATROPIUM NEB FS 0.5 MG/2.5 ML AMPUL.NEB NEB SCH ×4 (01:07→19:30)
[2018-11-20] MEDS: SUCRALFATE 1 G/10 ML UDC GT SCH ×3 (05:00→20:50)
[2018-11-20] MEDS: JEVITY 1.2 CAL 1,000 ML BOTTLE GT PRN (06:00)
[2018-11-20] MEDS: OMEPRAZOLE 20 MG CAPSULE.DR GT SCH (06:01)
[2018-11-20] MEDS: LEVOTHYROXINE SODIUM 25 MCG TABLET GT SCH (06:02)
[2018-11-20 06:28] VITALS: BP 128/73
[2018-11-20 08:12] VITALS: BP 124/88
[2018-11-20] MEDS: MECLIZINE HCL 12.5 MG TABLET GT SCH ×2 (08:47→20:50)
[2018-11-20] MEDS: POLYETHYLENE GLYCOL 3350 17 GM POWD.PACK GT SCH (08:47)
[2018-11-20] MEDS: FERROUS SULFATE - FOR SA ONLY 330 MG/7.5 ML UDC GT SCH ×2 (08:47→20:51)
[2018-11-20] MEDS: CHOLECALCIFEROL 1,000 UNIT TABLET (VIT D3) GT SCH (08:47)
[2018-11-20] MEDS: MULTIVIT W/MINERALS 1 TAB TABLET GT SCH (08:47)
[2018-11-20] MEDS: Z GUARD REMEDY 4 OZ OINT TP SCH ×2 (09:00→20:52)
[2018-11-20] MEDS: ZINC OXIDE 30 GM TUBE TP SCH (09:00)
[2018-11-20] MEDS: HYDROGEN PEROXIDE 480 ML BOTTLE TP SCH ×2 (09:00→20:52)
[2018-11-20 12:00] VITALS: BP 154/70
[2018-11-20 18:36] VITALS: BP 144/69
[2018-11-20 20:14] VITALS: BP 137/68
[2018-11-20] MEDS: ASCORBIC ACID 500 MG TABLET GT SCH (20:52)
[2018-11-20] MEDS: CYANOCOBALAMIN 500 MCG TABLET GT SCH (20:54)
[2018-11-20] MEDS: SENNOSIDES 8.6 MG TABLET GT SCH (21:00)
[2018-11-21] VITALS: BP 138/71
[2018-11-21] MEDS: ALBUTEROL HALF STRENGTH 1.25 MG/3 ML VIAL.NEB NEB SCH ×4 (01:45→19:43)
[2018-11-21] MEDS: IPRATROPIUM NEB FS 0.5 MG/2.5 ML AMPUL.NEB NEB SCH ×4 (01:45→19:43)
[2018-11-21] MEDS: SUCRALFATE 1 G/10 ML UDC GT SCH ×3 (05:44→21:19)
[2018-11-21] MEDS: OMEPRAZOLE 20 MG CAPSULE.DR GT SCH (05:44)
[2018-11-21] MEDS: METOCLOPRAMIDE HCL 10 MG TABLET GT SCH ×4 (05:45→23:41)
[2018-11-21] MEDS: LEVOTHYROXINE SODIUM 25 MCG TABLET GT SCH (05:46)
[2018-11-21 06:00] VITALS: BP 158/75
[2018-11-21 08:07] VITALS: BP 123/64
[2018-11-21] MEDS: POLYETHYLENE GLYCOL 3350 17 GM POWD.PACK GT SCH (08:18)
[2018-11-21] MEDS: MECLIZINE HCL 12.5 MG TABLET GT SCH ×2 (08:18→21:19)
[2018-11-21] MEDS: FERROUS SULFATE - FOR SA ONLY 330 MG/7.5 ML UDC GT SCH ×2 (08:18→21:19)
[2018-11-21] MEDS: Z GUARD REMEDY 4 OZ OINT TP SCH ×2 (08:20→21:19)
[2018-11-21] MEDS: HYDROGEN PEROXIDE 480 ML BOTTLE TP SCH ×2 (08:20→21:19)
[2018-11-21] MEDS: CHOLECALCIFEROL 1,000 UNIT TABLET (VIT D3) GT SCH (08:20)
[2018-11-21] MEDS: MULTIVIT W/MINERALS 1 TAB TABLET GT SCH (08:20)
[2018-11-21] MEDS: ZINC OXIDE 30 GM TUBE TP SCH (08:20)
[2018-11-21] MEDS: ACETAMINOPHEN 650 MG/20 ML UDC- SA PATIENTS-PAIN ONLY GT PRN (08:23)
--- NOTE | 2018-11-21 09:05 | NUR ---
RT RECEIVED PT TRACH VENT DEPENDENT W/ NOTED SETTINGS. ICT BUSINESS DEVELOPMENT MANAGER DONE AND TRACH IS SECURE. B/S SONYA RHONCHI. VENT ALARMS CHECKED AND AUDIBLE. VENT PLUGGED IN RED OUTLET. SX WITH MOD THK PALE YELLOW SECRETIONS. AMBU BAG AND SPARE TRACH NOTED HOB. PT ON CONTINUOUS PULSE OX, SP02 & HR W/IN NORMAL LIMITS. BREATHING TX GIVEN AND NO ADV REACTION. NO SOB OR RESP DISTRESS NOTED, PT TOLERATING SETTINGS WELL. WILL CONTINUE TO MONITOR T/O SHIFT.
--- NOTE | 2018-11-21 11:00 | NUR ---
Notified Dr. Chris Foreman patient has been running temp 100.4, with new order for labs and cultures. CBC, BMP, CXR, BC, UA and urine culture. Resident's daughter Cheli notified of patient's change in condition and new order. Appreciated the call.
--- NOTE | 2018-11-21 11:10 | NUR ---
Notified Dr. Chris Foreman, patient being given PRN Ativan often due to tachycardia. HR at this time >140's, with new order to add new medication Coreg 3.125 mg via GT Q12 with parameter to hold if SBP less than 90. Informed resident's mother Annamarie of new order. Orders carried out. Addendum: 11/21/18 at 1816 by HECTOR PATINO RN wrong entry/wrong patient.
[2018-11-21 11:23] LABS: BASOPHILS # (AUTO) 0.1 /CMM (0.0-0.2); BASOPHILS % (AUTO) 0.4 % (0.0-2.0); EOSINOPHILS % (AUTO) 2.7 % (0.0-6.0); HEMATOCRIT 27 % (33-45); HEMOGLOBIN 8.3 g/dL (11.5-14.8); LYMPHOCYTES # (AUTO) 1.7 /CMM (0.8-4.8); LYMPHOCYTES % (AUTO) 11.2 % (20.0-44.0); MEAN CORPUSCULAR HGB CONC 31 g/dl (31.0-36.0); MEAN CORPUSCULAR VOLUME 86 fL (82-100); MONOCYTES % (AUTO) 6.3 % (2.0-12.0); NEUTROPHILS % (AUTO) 79.4 % (43.0-81.0); PLATELET COUNT (AUTO) 336 /CMM (150-450); RED BLOOD CELL COUNT(AUTO) 3.13 MIL/uL (4.0-5.2); WHITE BLOOD COUNT (AUTO) 15.1 K/uL (4.3-11.0)
[2018-11-21 11:23] LABS: APPEARANCE,URINE CLOUDY (CLEAR); BILIRUBIN,URINE NEGATIVE (NEGATIVE); BLOOD, URINE 1+ Ery/uL (NEGATIVE); COLOR,URINE DARK YELLO (YELLOW); KETONES,URINE NEGATIVE (NEGATIVE); LEUKOCYTE ESTERASE ,URINE 3+ (NEGATIVE); NITRITE, URINE NEGATIVE (NEGATIVE); PROTEIN,URINE 2+ mg/dl (NEGATIVE); UGLUCOSE NEGATIVE (NEGATIVE); UROBILINOGEN,URINE 0.2 EU/dL (0.2)
[2018-11-21 11:28] LABS: PH,URINE >9.0 (5.0-8.0)
[2018-11-21 11:31] LABS: WBC,URINE 21-50 /HPF (0-3)
[2018-11-21 11:32] LABS: BACTERIA,URINE 1+ /HPF (None Seen); MUCUS,URINE Moderate /LPF (None Seen); TRIPLE PHOSPHATE CRYSTAL,UR Many /HPF (None Seen); URINE AMORPHOUS URATE Moderate /HPF (None Seen)
[2018-11-21 11:32] LABS: CALCIUM, SERUM 8.7 mg/dL (8.5-10.1); CARBON DIOXIDE 33 mmol/L (21-32); CHLORIDE 101 mmol/L (98-107); CREATININE 0.5 mg/dL (0.6-1.3); GLUCOSE 246 mg/dL (74-106); POTASSIUM 4.3 mmol/L (3.5-5.1); SODIUM SERUM 141 mmol/L (136-145); UREA NITROGEN, BLOOD 18 mg/dL (7-18)
[2018-11-21 14:11] VITALS: BP 120/68
--- NOTE | 2018-11-21 16:10 | NUR ---
Reported CBC, BMP and chest X-ray result to Dr. Foreman with new order to start Rocephin 1 gm Q 24 x 7 days for UTI. Left a message to resident's daughter Cheli of new ATB order. Order faxed to [facility] and [facility].
--- NOTE | 2018-11-21 18:05 | NUR ---
Spoke with Jorge from [facility] pharmacy requesting patient's latest BUN and creatine, height and weight. and said to start first dose from [facility]. Endorsed.
[2018-11-21 18:10] VITALS: BP 122/56
[2018-11-21] MEDS: ACETAMINOPHEN 650 MG/20 ML UDC- SA PATIENTS-FEVER ONLY GT PRN (18:13)
[2018-11-21 19:51] VITALS: BP 120/64
[2018-11-21] MEDS ORDERED: CEFTRIAXONE 1 G in IV NS 0.9% 50 ML IV SCH (20:00)
--- NOTE | 2018-11-21 20:00 | NUR ---
Pt started on Rocephin 1 gm IV daily for UTI.Will continue to monitor.
--- NOTE | 2018-11-21 20:14 | NUR ---
RT NOTE PT RECEIVED ON [facility] VENT ON THE FOLLOWING NOTED SETTINGS. PT SUCTIONED: SMALL THIN WHITE SECRETIONS. BREATHING TX GIVEN, NO ADVERSE REACTIONS NOTED. VENT IS PLUGGED INTO RED OUTLET. VENT ALARMS ARE ON AND AUDIBLE. AMBU BAG AND SPARE TRACH ARE AT BEDSIDE. WILL CONT TO MONITOR PT. Addendum: 11/21/18 at 2014 by DIANNE SALCEDO RT Amended: Links added.
[2018-11-21] MEDS: SENNOSIDES 8.6 MG TABLET GT SCH (21:19)
[2018-11-21] MEDS: ASCORBIC ACID 500 MG TABLET GT SCH (21:19)
[2018-11-21] MEDS: CYANOCOBALAMIN 500 MCG TABLET GT SCH (21:19)
[2018-11-21] MEDS: JEVITY 1.2 CAL 1,000 ML BOTTLE GT PRN (21:20)
[2018-11-22 00:15] VITALS: BP 123/54
[2018-11-22] MEDS: ALBUTEROL HALF STRENGTH 1.25 MG/3 ML VIAL.NEB NEB SCH ×4 (01:56→20:09)
[2018-11-22] MEDS: IPRATROPIUM NEB FS 0.5 MG/2.5 ML AMPUL.NEB NEB SCH ×4 (01:56→20:09)
[2018-11-22] MEDS: LEVOTHYROXINE SODIUM 25 MCG TABLET GT SCH (05:40)
[2018-11-22] MEDS: OMEPRAZOLE 20 MG CAPSULE.DR GT SCH (05:40)
[2018-11-22] MEDS: SUCRALFATE 1 G/10 ML UDC GT SCH ×3 (05:40→21:20)
[2018-11-22] MEDS: METOCLOPRAMIDE HCL 10 MG TABLET GT SCH ×4 (05:40→23:54)
--- NOTE | 2018-11-22 06:23 | NUR ---
Snow catheter change per Emily F# 16x 10ml balloon with yellow urine output with sediments.Pt on antiibiotic fror UTi.will continue to monitor.
[2018-11-22 06:47] VITALS: BP 111/69
[2018-11-22 08:00] VITALS: BP 117/57
[2018-11-22] MEDS: ZINC OXIDE 30 GM TUBE TP SCH (09:00)
[2018-11-22] MEDS: HYDROGEN PEROXIDE 480 ML BOTTLE TP SCH ×2 (09:00→21:20)
[2018-11-22] MEDS: Z GUARD REMEDY 4 OZ OINT TP SCH ×2 (09:00→21:20)
[2018-11-22] MEDS: MULTIVIT W/MINERALS 1 TAB TABLET GT SCH (09:26)
[2018-11-22] MEDS: CHOLECALCIFEROL 1,000 UNIT TABLET (VIT D3) GT SCH (09:26)
[2018-11-22] MEDS: MECLIZINE HCL 12.5 MG TABLET GT SCH ×2 (09:26→21:20)
[2018-11-22] MEDS: FERROUS SULFATE - FOR SA ONLY 330 MG/7.5 ML UDC GT SCH ×2 (09:26→21:20)
[2018-11-22] MEDS: POLYETHYLENE GLYCOL 3350 17 GM POWD.PACK GT SCH (09:26)
[2018-11-22 12:00] VITALS: BP 118/56
[2018-11-22] MEDS: JEVITY 1.2 CAL 1,000 ML BOTTLE GT PRN (13:05)
[2018-11-22] MEDS: ACETAMINOPHEN 650 MG/20 ML UDC- SA PATIENTS-PAIN ONLY GT PRN (13:05)
--- NOTE | 2018-11-22 16:17 | NUR ---
RT NOTE PT RECEIVED ON MECH VENT ON THE FOLLOWING NOTED SETTINGS. PT SUCTIONED: SMALL THIN WHITE SECRETIONS. BREATHING TX GIVEN, NO ADVERSE REACTIONS NOTED. VENT IS PLUGGED INTO RED OUTLET. VENT ALARMS ARE ON AND AUDIBLE. AMBU BAG AND SPARE TRACH ARE AT BEDSIDE. WILL CONT TO MONITOR PT.
[2018-11-22 18:53] VITALS: BP 125/61
--- NOTE | 2018-11-22 18:54 | NUR ---
AJ Diaz ordered to DC Rocephin and give Zosyn 3.375 gm IV q 6 hours for UTI. Per AJ Diaz, no stop date for now since she might still change the antibiotic based on cultures.
[2018-11-22] MEDS ORDERED: ZOSYN IVPB 3.375 G in IV D5W 50ml IV ONE (19:00)
[2018-11-22 20:20] VITALS: BP 130/64
[2018-11-22] MEDS: CYANOCOBALAMIN 500 MCG TABLET GT SCH (21:20)
[2018-11-22] MEDS: SENNOSIDES 8.6 MG TABLET GT SCH (21:20)
[2018-11-22] MEDS: ASCORBIC ACID 500 MG TABLET GT SCH (21:20)
--- NOTE | 2018-11-22 21:23 | NUR ---
Spoke with Bev she Ashleypattyn is covered by insurance.
[2018-11-22] MEDS: CLONIDINE HCL 0.1 MG TABLET GT PRN (23:51)
[2018-11-23] VITALS: BP 122/57
[2018-11-23] MEDS: PIPERACILLIN /TAZOBACTAM 3.375 G in IV D5W 50 ML IV SCH ×4 (00:26→18:00)
[2018-11-23] MEDS: IPRATROPIUM NEB FS 0.5 MG/2.5 ML AMPUL.NEB NEB SCH ×4 (02:06→19:52)
[2018-11-23] MEDS: ALBUTEROL HALF STRENGTH 1.25 MG/3 ML VIAL.NEB NEB SCH ×4 (02:06→19:52)
[2018-11-23] MEDS: SUCRALFATE 1 G/10 ML UDC GT SCH ×3 (05:00→21:06)
[2018-11-23 06:00] VITALS: BP 120/73
[2018-11-23] MEDS: LEVOTHYROXINE SODIUM 25 MCG TABLET GT SCH (06:09)
[2018-11-23] MEDS: METOCLOPRAMIDE HCL 10 MG TABLET GT SCH ×3 (06:09→18:36)
[2018-11-23] MEDS: OMEPRAZOLE 20 MG CAPSULE.DR GT SCH (06:09)
[2018-11-23] MEDS: CLONIDINE HCL 0.1 MG TABLET GT PRN (06:09)
[2018-11-23] MEDS: JEVITY 1.2 CAL 1,000 ML BOTTLE GT PRN ×2 (06:09→22:21)
[2018-11-23 07:36] VITALS: BP 150/67
--- NOTE | 2018-11-23 08:10 | NUR ---
RT RECEIVED PT TRACH VENT DEPENDENT W/ NOTED SETTINGS. HOT TOP LINER DONE AND TRACH IS SECURE. VENT ALARMS CHECKED AND AUDIBLE. VENT PLUGGED IN RED OUTLET. B/S SONYA RHONCHI, SX WITH MOD THK PALE YELLOW SECRETIONS. BREATHING TX GIVEN, NO ADV REACTION. AMBU BAG AND SPARE TRACH NOTED HOB. NO SOB OR RESP DISTRESS NOTED AT THIS TIME, WILL CONTINUE TO MONITOR T/O SHIFT.
[2018-11-23] MEDS: MECLIZINE HCL 12.5 MG TABLET GT SCH ×2 (09:55→21:06)
[2018-11-23] MEDS: POLYETHYLENE GLYCOL 3350 17 GM POWD.PACK GT SCH (09:55)
[2018-11-23] MEDS: FERROUS SULFATE - FOR SA ONLY 330 MG/7.5 ML UDC GT SCH ×2 (09:55→21:06)
[2018-11-23] MEDS: MULTIVIT W/MINERALS 1 TAB TABLET GT SCH (09:55)
[2018-11-23] MEDS: CHOLECALCIFEROL 1,000 UNIT TABLET (VIT D3) GT SCH (09:57)
[2018-11-23] MEDS: ZINC OXIDE 30 GM TUBE TP SCH (09:57)
[2018-11-23] MEDS: Z GUARD REMEDY 4 OZ OINT TP SCH ×2 (09:57→21:06)
[2018-11-23] MEDS: HYDROGEN PEROXIDE 480 ML BOTTLE TP SCH ×2 (09:57→21:06)
--- NOTE | 2018-11-23 11:42 | NUR ---
Lacho informed resident's daughter Cheli about upcoming IDT meeting on Friday November 30, 2018 from 12:30-1:30PM. She stated that she would like to receive a phone call during this time.
[2018-11-23 12:18] VITALS: BP 135/64
--- NOTE | 2018-11-23 14:00 | NUR ---
Notified SURTASS ANALYST Conor of final urine culture result which shows E. Coli and Proteus Mirabilis. Per Emily, to continue with current ATB of Keisha.
[2018-11-23 18:22] VITALS: BP 124/61
--- NOTE | 2018-11-23 19:52 | NUR ---
RT Pt received trach'd and on [facility] vent w charted settings. Vent is plugged into red outlet. Alarms are on and audible w jerry @ [employer]. Trach is secure and patent. Financial Accounting Analyst done. Hhn tx given and pt sx'd w no adverse reactions. No respiratory distress noted at this time. Will continue to monitor. Addendum: 11/23/18 at 2151 by SHIRA TORRES RT Amended: Links added.
[2018-11-23 20:23] VITALS: BP 125/66
[2018-11-23] MEDS: CYANOCOBALAMIN 500 MCG TABLET GT SCH (21:06)
[2018-11-23] MEDS: ASCORBIC ACID 500 MG TABLET GT SCH (21:06)
[2018-11-23] MEDS: SENNOSIDES 8.6 MG TABLET GT SCH (21:07)
[2018-11-24] MEDS: PIPERACILLIN /TAZOBACTAM 3.375 G in IV D5W 50 ML IV SCH ×5 (00:13→23:48)
[2018-11-24 00:16] VITALS: BP 120/62
[2018-11-24] MEDS: METOCLOPRAMIDE HCL 10 MG TABLET GT SCH ×5 (00:19→23:32)
[2018-11-24] MEDS: ALBUTEROL HALF STRENGTH 1.25 MG/3 ML VIAL.NEB NEB SCH ×4 (02:12→20:01)
[2018-11-24] MEDS: IPRATROPIUM NEB FS 0.5 MG/2.5 ML AMPUL.NEB NEB SCH ×4 (02:12→20:01)
[2018-11-24] MEDS: OMEPRAZOLE 20 MG CAPSULE.DR GT SCH (05:26)
[2018-11-24] MEDS: LEVOTHYROXINE SODIUM 25 MCG TABLET GT SCH (05:26)
[2018-11-24] MEDS: SUCRALFATE 1 G/10 ML UDC GT SCH ×3 (05:26→20:30)
[2018-11-24 06:36] VITALS: BP 111/65
[2018-11-24 07:29] VITALS: BP 124/69
[2018-11-24 07:31] LABS: BASOPHILS % (AUTO) 0.5 % (0.0-2.0); EOSINOPHILS % (AUTO) 6.4 % (0.0-6.0); HEMATOCRIT 25 % (33-45); HEMOGLOBIN 7.8 g/dL (11.5-14.8); LYMPHOCYTES # (AUTO) 1.1 /CMM (0.8-4.8); MEAN CORPUSCULAR HGB CONC 32 g/dl (31.0-36.0); MEAN CORPUSCULAR VOLUME 87 fL (82-100); MONOCYTES # (AUTO) 0.7 /CMM (0.1-1.30); MONOCYTES % (AUTO) 8.8 % (2.0-12.0); NEUTROPHILS # (AUTO) 5.7 /CMM (1.8-8.9); NEUTROPHILS % (AUTO) 70.3 % (43.0-81.0); PLATELET COUNT (AUTO) 249 /CMM (150-450); RED BLOOD CELL COUNT(AUTO) 2.84 MIL/uL (4.0-5.2); WHITE BLOOD COUNT (AUTO) 8.2 K/uL (4.3-11.0)
[2018-11-24] MEDS: MULTIVIT W/MINERALS 1 TAB TABLET GT SCH (08:32)
[2018-11-24] MEDS: MECLIZINE HCL 12.5 MG TABLET GT SCH ×2 (08:32→20:30)
[2018-11-24] MEDS: POLYETHYLENE GLYCOL 3350 17 GM POWD.PACK GT SCH (08:32)
[2018-11-24] MEDS: CHOLECALCIFEROL 1,000 UNIT TABLET (VIT D3) GT SCH (08:32)
[2018-11-24] MEDS: FERROUS SULFATE - FOR SA ONLY 330 MG/7.5 ML UDC GT SCH ×2 (08:32→20:30)
[2018-11-24] MEDS: Z GUARD REMEDY 4 OZ OINT TP SCH ×2 (08:33→20:30)
[2018-11-24] MEDS: HYDROGEN PEROXIDE 480 ML BOTTLE TP SCH ×2 (08:33→20:30)
[2018-11-24] MEDS: ZINC OXIDE 30 GM TUBE TP SCH (08:33)
--- NOTE | 2018-11-24 10:52 | NUR ---
Relayed CBC result to Dr. John. Hgb 7.8. Order obtained for repeat CBC on Monday. Order carried out.
[2018-11-24 12:00] VITALS: BP 130/61
[2018-11-24] MEDS: JEVITY 1.2 CAL 1,000 ML BOTTLE GT PRN (13:00)
--- NOTE | 2018-11-24 15:51 | NUR ---
RT RECD PT TRACHED INTACT & SECURED ON MECH VENT ALARMS ON & AUDIBLE VENT PLUGGED IN RED OUTLET. BAG AND MASK AT HOB SX THICK PALE YELLOW SECRETIONS NO RESP DISTRESS NOTEDE ATT WILL CONT TO MONITOR
[2018-11-24 18:02] VITALS: BP 141/62
[2018-11-24 20:03] VITALS: BP 154/68
[2018-11-24] MEDS: ASCORBIC ACID 500 MG TABLET GT SCH (20:30)
[2018-11-24] MEDS: CYANOCOBALAMIN 500 MCG TABLET GT SCH (20:30)
[2018-11-24] MEDS: SENNOSIDES 8.6 MG TABLET GT SCH (22:33)
[2018-11-25] VITALS (7 sets, daily range): BP systolic 115–133; BP diastolic 58–85
[2018-11-25] MEDS: ALBUTEROL HALF STRENGTH 1.25 MG/3 ML VIAL.NEB NEB SCH ×4 (02:00→19:50)
[2018-11-25] MEDS: IPRATROPIUM NEB FS 0.5 MG/2.5 ML AMPUL.NEB NEB SCH ×4 (02:00→19:50)
[2018-11-25] MEDS: SUCRALFATE 1 G/10 ML UDC GT SCH ×3 (05:12→20:11)
[2018-11-25] MEDS: METOCLOPRAMIDE HCL 10 MG TABLET GT SCH ×3 (05:12→17:51)
[2018-11-25] MEDS: OMEPRAZOLE 20 MG CAPSULE.DR GT SCH (05:12)
[2018-11-25] MEDS: LEVOTHYROXINE SODIUM 25 MCG TABLET GT SCH (05:12)
[2018-11-25] MEDS: PIPERACILLIN /TAZOBACTAM 3.375 G in IV D5W 50 ML IV SCH ×3 (05:55→18:01)
[2018-11-25] MEDS: JEVITY 1.2 CAL 1,000 ML BOTTLE GT PRN ×2 (05:59→18:33)
[2018-11-25] MEDS: CHOLECALCIFEROL 1,000 UNIT TABLET (VIT D3) GT SCH (09:30)
[2018-11-25] MEDS: POLYETHYLENE GLYCOL 3350 17 GM POWD.PACK GT SCH (09:30)
[2018-11-25] MEDS: MULTIVIT W/MINERALS 1 TAB TABLET GT SCH (09:30)
[2018-11-25] MEDS: FERROUS SULFATE - FOR SA ONLY 330 MG/7.5 ML UDC GT SCH ×2 (09:30→20:11)
[2018-11-25] MEDS: MECLIZINE HCL 12.5 MG TABLET GT SCH ×2 (09:30→20:15)
[2018-11-25] MEDS: HYDROGEN PEROXIDE 480 ML BOTTLE TP SCH ×2 (09:49→20:13)
[2018-11-25] MEDS: Z GUARD REMEDY 4 OZ OINT TP SCH ×2 (09:50→20:14)
[2018-11-25] MEDS: ZINC OXIDE 30 GM TUBE TP SCH (09:50)
--- NOTE | 2018-11-25 19:34 | NUR ---
Zosyn discontinued and changed to Amoxicillin 500 mg via GT q 8 hrs for UTI pls f/u stop date.
[2018-11-25] MEDS: AMOXICILLIN TRIHYDRATE 250 MG CAPSULE PO SCH (20:12)
[2018-11-25] MEDS: CYANOCOBALAMIN 500 MCG TABLET GT SCH (20:12)
[2018-11-25] MEDS: ASCORBIC ACID 500 MG TABLET GT SCH (20:12)
[2018-11-25] MEDS: SENNOSIDES 8.6 MG TABLET GT SCH (22:11)
[2018-11-26 00:40] VITALS: BP 131/72
[2018-11-26] MEDS: ALBUTEROL HALF STRENGTH 1.25 MG/3 ML VIAL.NEB NEB SCH ×4 (00:54→19:55)
[2018-11-26] MEDS: IPRATROPIUM NEB FS 0.5 MG/2.5 ML AMPUL.NEB NEB SCH ×4 (00:54→19:55)
[2018-11-26] MEDS: METOCLOPRAMIDE HCL 10 MG TABLET GT SCH ×5 (00:56→23:03)
[2018-11-26] MEDS: SUCRALFATE 1 G/10 ML UDC GT SCH ×3 (05:44→21:26)
[2018-11-26] MEDS: AMOXICILLIN TRIHYDRATE 250 MG CAPSULE PO SCH ×2 (05:44→12:34)
[2018-11-26] MEDS: OMEPRAZOLE 20 MG CAPSULE.DR GT SCH (05:46)
[2018-11-26] MEDS: LEVOTHYROXINE SODIUM 25 MCG TABLET GT SCH (05:46)
[2018-11-26 06:23] VITALS: BP 123/74
[2018-11-26 07:12] LABS: BASOPHILS % (AUTO) 0.4 % (0.0-2.0); EOSINOPHILS % (AUTO) 3.6 % (0.0-6.0); HEMATOCRIT 25 % (33-45); HEMOGLOBIN 7.8 g/dL (11.5-14.8); LYMPHOCYTES # (AUTO) 1.1 /CMM (0.8-4.8); LYMPHOCYTES % (AUTO) 9.4 % (20.0-44.0); MEAN CORPUSCULAR HGB CONC 32 g/dl (31.0-36.0); MEAN CORPUSCULAR VOLUME 86 fL (82-100); MONOCYTES # (AUTO) 0.8 /CMM (0.1-1.30); MONOCYTES % (AUTO) 6.6 % (2.0-12.0); NEUTROPHILS # (AUTO) 9.8 /CMM (1.8-8.9); PLATELET COUNT (AUTO) 308 /CMM (150-450); RED BLOOD CELL COUNT(AUTO) 2.86 MIL/uL (4.0-5.2); WHITE BLOOD COUNT (AUTO) 12.3 K/uL (4.3-11.0)
[2018-11-26 07:36] VITALS: BP 139/55
[2018-11-26] MEDS: POLYETHYLENE GLYCOL 3350 17 GM POWD.PACK GT SCH (08:45)
[2018-11-26] MEDS: FERROUS SULFATE - FOR SA ONLY 330 MG/7.5 ML UDC GT SCH ×2 (08:45→21:26)
[2018-11-26] MEDS: MULTIVIT W/MINERALS 1 TAB TABLET GT SCH (08:45)
[2018-11-26] MEDS: CHOLECALCIFEROL 1,000 UNIT TABLET (VIT D3) GT SCH (08:45)
[2018-11-26] MEDS: MECLIZINE HCL 12.5 MG TABLET GT SCH ×2 (08:45→21:26)
[2018-11-26] MEDS: CLONIDINE HCL 0.2MG/24H PTWK 1 EA PATCH TD SCH (08:48)
[2018-11-26] MEDS: Z GUARD REMEDY 4 OZ OINT TP SCH ×2 (09:00→21:26)
[2018-11-26] MEDS: HYDROGEN PEROXIDE 480 ML BOTTLE TP SCH ×2 (09:00→21:26)
[2018-11-26] MEDS: ZINC OXIDE 30 GM TUBE TP SCH (09:00)
[2018-11-26 12:00] VITALS: BP 144/70
--- NOTE | 2018-11-26 13:30 | NUR ---
Seen by AJ Hankins. Relayed lab results to her. No new order.
[2018-11-26] MEDS: JEVITY 1.2 CAL 1,000 ML BOTTLE GT PRN (14:15)
--- NOTE | 2018-11-26 16:09 | NUR ---
Dr Foreman aware of change in code status from full code to DNR. Reminded him to sign the preferred intensity of care form and he said he will come by on Monday.
[2018-11-26 18:36] VITALS: BP 131/66
--- NOTE | 2018-11-26 19:12 | NUR ---
AJ Diaz ordered to give Amoxicillin 500 mg GT q 8 hours for a total of 10 days.
[2018-11-26 20:07] VITALS: BP 124/55
--- NOTE | 2018-11-26 21:07 | NUR ---
RT Pt RECEIVED TRACHED ON [facility] VENT ON CHARTED SETTINGS. NO RESP DISTRESS NOTED. HHN TX GIVEN, NO ADVERSE REACTIONS NOTED. PT SUCTIONED. ALARMS ON AND AUDIBLE. AMBU BAG/BACK UP TRACH @ BEDSIDE. VENT CONNECTED TO RED OUTLET. WILL CONT TO MONITOR. Addendum: 11/26/18 at 2108 by HUMBLE KO RT Amended: Links added.
[2018-11-26] MEDS: CYANOCOBALAMIN 500 MCG TABLET GT SCH (21:26)
[2018-11-26] MEDS: ASCORBIC ACID 500 MG TABLET GT SCH (21:26)
[2018-11-26] MEDS: SENNOSIDES 8.6 MG TABLET GT SCH (21:26)
[2018-11-26] MEDS: AMOXICILLIN TRIHYDRATE 250 MG CAPSULE GT SCH (21:26)
[2018-11-27 00:01] VITALS: BP 125/64
[2018-11-27] MEDS: IPRATROPIUM NEB FS 0.5 MG/2.5 ML AMPUL.NEB NEB SCH ×4 (01:38→20:03)
[2018-11-27] MEDS: ALBUTEROL HALF STRENGTH 1.25 MG/3 ML VIAL.NEB NEB SCH ×4 (01:38→20:03)
[2018-11-27] MEDS: OMEPRAZOLE 20 MG CAPSULE.DR GT SCH (05:06)
[2018-11-27] MEDS: LEVOTHYROXINE SODIUM 25 MCG TABLET GT SCH (05:06)
[2018-11-27] MEDS: SUCRALFATE 1 G/10 ML UDC GT SCH ×3 (05:06→21:03)
[2018-11-27] MEDS: AMOXICILLIN TRIHYDRATE 250 MG CAPSULE GT SCH (05:06)
[2018-11-27] MEDS: METOCLOPRAMIDE HCL 10 MG TABLET GT SCH ×4 (05:06→23:16)
[2018-11-27] MEDS: JEVITY 1.2 CAL 1,000 ML BOTTLE GT PRN ×2 (05:07→21:03)
[2018-11-27 06:50] VITALS: BP 134/72
[2018-11-27 07:25] VITALS: BP 121/55
[2018-11-27] MEDS: POLYETHYLENE GLYCOL 3350 17 GM POWD.PACK GT SCH (08:27)
[2018-11-27] MEDS: FERROUS SULFATE - FOR SA ONLY 330 MG/7.5 ML UDC GT SCH ×2 (08:27→21:03)
[2018-11-27] MEDS: MULTIVIT W/MINERALS 1 TAB TABLET GT SCH (08:27)
[2018-11-27] MEDS: MECLIZINE HCL 12.5 MG TABLET GT SCH ×2 (08:27→21:03)
[2018-11-27] MEDS: CHOLECALCIFEROL 1,000 UNIT TABLET (VIT D3) GT SCH (08:27)
[2018-11-27] MEDS: Z GUARD REMEDY 4 OZ OINT TP SCH ×2 (08:28→21:03)
[2018-11-27] MEDS: ZINC OXIDE 30 GM TUBE TP SCH (08:28)
[2018-11-27] MEDS: HYDROGEN PEROXIDE 480 ML BOTTLE TP SCH ×2 (08:28→21:03)
[2018-11-27 12:00] VITALS: BP 161/71
[2018-11-27] MEDS: AMOXICILLIN TRIHYDRATE 500 MG CAPSULE NG SCH ×2 (12:55→21:03)
[2018-11-27] MEDS: HYDROCODONE/APAP 5/325MG 1 EACH TABLET GT PRN ×2 (13:30→17:45)
--- NOTE | 2018-11-27 18:55 | NUR ---
Pt was desatting to 87-89%. Suctioned pt and FiO2 was being titrated by RT Zach. Pt's heart rate dropped to 40s when she desaturated. O2 sat 99 HR 83 at this time. Pt very lethargic. She was given [place] for pain this afternoon. Notified HEALTH PRACTICE MANAGER Deneen Hankins.
[2018-11-27 18:59] VITALS: BP 151/55
[2018-11-27 19:53] VITALS: BP 115/55
--- NOTE | 2018-11-27 20:00 | NUR ---
RN NOTES Received pt in bed with HR of 45. Pt noted lethargic but arousable to painful stimuli. B/P 115/55. No respiratory distress noted. Will continue to monitor.
[2018-11-27] MEDS: SENNOSIDES 8.6 MG TABLET GT SCH (21:03)
[2018-11-27] MEDS: CYANOCOBALAMIN 500 MCG TABLET GT SCH (21:03)
[2018-11-27] MEDS: ASCORBIC ACID 500 MG TABLET GT SCH (21:03)
[2018-11-28 00:09] VITALS: BP 149/73
[2018-11-28] MEDS: IPRATROPIUM NEB FS 0.5 MG/2.5 ML AMPUL.NEB NEB SCH ×4 (01:44→20:00)
[2018-11-28] MEDS: ALBUTEROL HALF STRENGTH 1.25 MG/3 ML VIAL.NEB NEB SCH ×4 (01:44→20:00)
[2018-11-28] MEDS: SUCRALFATE 1 G/10 ML UDC GT SCH ×2 (05:33→13:00)
[2018-11-28] MEDS: OMEPRAZOLE 20 MG CAPSULE.DR GT SCH (05:33)
[2018-11-28] MEDS: AMOXICILLIN TRIHYDRATE 500 MG CAPSULE NG SCH ×2 (05:33→13:00)
[2018-11-28] MEDS: METOCLOPRAMIDE HCL 10 MG TABLET GT SCH ×3 (05:33→18:19)
[2018-11-28] MEDS: LEVOTHYROXINE SODIUM 25 MCG TABLET GT SCH (05:33)
[2018-11-28 06:28] VITALS: BP 112/67
[2018-11-28 08:03] VITALS: BP 133/69
[2018-11-28] MEDS: MULTIVIT W/MINERALS 1 TAB TABLET GT SCH (08:37)
[2018-11-28] MEDS: FERROUS SULFATE - FOR SA ONLY 330 MG/7.5 ML UDC GT SCH (08:37)
[2018-11-28] MEDS: MECLIZINE HCL 12.5 MG TABLET GT SCH (08:37)
[2018-11-28] MEDS: HYDROGEN PEROXIDE 480 ML BOTTLE TP SCH (08:37)
[2018-11-28] MEDS: CHOLECALCIFEROL 1,000 UNIT TABLET (VIT D3) GT SCH (08:37)
[2018-11-28] MEDS: POLYETHYLENE GLYCOL 3350 17 GM POWD.PACK GT SCH (08:37)
[2018-11-28] MEDS: Z GUARD REMEDY 4 OZ OINT TP SCH (09:00)
[2018-11-28] MEDS: ZINC OXIDE 30 GM TUBE TP SCH (09:00)
--- NOTE | 2018-11-28 09:00 | NUR ---
Noted and order from Dr. Foreman for labs today. Left a message to resident's daughter Cheli.
--- NOTE | 2018-11-28 10:01 | NUR ---
RT PT RECEIVED TRACHED ON [facility] VENT ON CHARTED SETTINGS. NO SOB, NO RESP DISTRESS NOTED. HHN TX GIVEN, NO ADVERSE REACTIONS NOTED. PT SUCTIONED. ALARMS ON AND AUDIBLE. AMBU BAG/BACK UP TRACH @ BEDSIDE. VENT CONNECTED TO RED OUTLET. WILL CONT TO MONITOR. Addendum: 11/28/18 at 1002 by HUMBERTO SINGER RT Amended: Links added.
[2018-11-28 15:14] VITALS: BP 133/69
--- NOTE | 2018-11-28 16:45 | NUR ---
Called Dr. Foreman's office, spoke with Fide and requested to speak with MD to notify that web feeder attempted to draw blood (3x) for patient but unsuccessful. Resident remain lethargic, not opening her eyes, respond slightly during oral suctioning, not in respiratory or cardio distress. V/S stable 110/51, 66, 98.0, 98-100%. Awaiting for MD to call back.
--- NOTE | 2018-11-28 17:46 | NUR ---
Spoke with resident's daughter Cheli and informed her of patient's current condition. Patient remain lethargic, eyes closed and difficult to arouse. Patient slightly moves her mouth when doing oral suctioning. Informed Cheli that MD ordered labs this morning but ccna attempted 4x unable to obtain specimen. Appreciated the call and said she will visit her tomorrow. VS 110/51, 66 98.0, O2 sat 100% Fi02 40%. no s/s of respiratory distress.
--- NOTE | 2018-11-28 18:00 | NUR ---
Spoke with Dr. Eckert, button pusher for Dr. Foreman and notified that proctologist unable to obtain specimen (attempted 4x) but unsuccessful. Informed MD that patient is not her usual self, very lethargic and difficult to arouse. Patient received [place] yesterday, not sure if this still the effect of the medication. According to Dr. Galeas to try again to get the specimen, if not maybe she needs a CT scan. Endorsed to the incoming shift to follow-up. Informed with Denise from the lab.
[2018-11-28 18:21] VITALS: BP 110/51
--- NOTE | 2018-11-28 18:26 | NUR ---
AJ Perdomo came and said that she reviewed patient's labs and V/S with order to send urine for culture. Order carried out.
--- NOTE | 2018-11-28 19:30 | NUR ---
Received patient very lethargic,difficult to arouse,eyes closed.Oil Gas And Pipe Tester at bedside but unable to draw blood.Pt extremities cold,cover wit blanket.Day shift nurse endorsed pt is very lethargic all day.No IV access.Will continue to monitor.
--- NOTE | 2018-11-28 19:50 | NUR ---
Pt BP 80/31,HR 68,Temp 98.1,mental status altered,very lethargic,Put pt in trendelenburg position.Will monitor and will page MD wagon driver.
[2018-11-28 19:55] VITALS: BP 80/31
--- NOTE | 2018-11-28 20:25 | NUR ---
Spoke to Dr. Eckert safety and occupational health manager for Dr. beauchamp and update him regarding pt condition and order to send to ER for further evaluation.
--- NOTE | 2018-11-28 20:30 | NUR ---
Pt send down to ER with RT,JAVA J2EE ARCHITECT and report given to RN.
--- NOTE | 2018-11-28 20:35 | NUR ---
Spoke to Cheli and notified her that we send her mother to ER for further evaluation.
[2019-02-08] MEDS ORDERED: TUBERCULIN,PURIF.PROT.DERIV. 5 TU/0.1 ML DISP.SYRIN ID SCH (09:00)
== END 2018-11-28 22:00 | disposition expired | DRG 207 ==
LOC: SA → UNDOLOA 11-29 00:38 → UNDODISIN 11-29 00:40
PROVIDERS: ADMIT Internal Medicine Nephrology; ATTEND Internal Medicine Nephrology
PROC: 5A1955Z Respiratory Ventilation, Greater than 96 Consecutive Hours (ICD-10-PCS; principal; 2018-11-13)
DX: J96.11 Chronic respiratory failure with hypoxia (principal); J18.9 Pneumonia, unspecified organism; A41.9 Sepsis, unspecified organism; S42.309A Unspecified fracture of shaft of humerus, unspecified arm, initial encounter for closed fracture; Z99.11 Dependence on respirator [ventilator] status; G93.40 Encephalopathy, unspecified; R40.3 Persistent vegetative state; K92.2 Gastrointestinal hemorrhage, unspecified; F33.9 Major depressive disorder, recurrent, unspecified; G61.0 Guillain-Barre syndrome; N39.0 Urinary tract infection, site not specified; B49 Unspecified mycosis; E87.0 Hyperosmolality and hypernatremia; K56.7 Ileus, unspecified; Z93.0 Tracheostomy status; J96.12 Chronic respiratory failure with hypercapnia; E03.9 Hypothyroidism, unspecified; E78.5 Hyperlipidemia, unspecified; I10 Essential (primary) hypertension; D64.9 Anemia, unspecified; K42.9 Umbilical hernia without obstruction or gangrene; Z87.440 Personal history of urinary (tract) infections; F39 Unspecified mood [affective] disorder; G65.0 Sequelae of Guillain-Barre syndrome; L97.509 Non-pressure chronic ulcer of other part of unspecified foot with unspecified severity; Y92.129 Unspecified place in nursing home as the place of occurrence of the external cause; Y73.8 Miscellaneous gastroenterology and urology devices associated with adverse incidents, not elsewhere classified; Z74.01 Bed confinement status; R13.10 Dysphagia, unspecified; Z93.1 Gastrostomy status; Z79.899 Other long term (current) drug therapy; Z79.51 Long term (current) use of inhaled steroids; B96.20 Unspecified Escherichia coli [E. coli] as the cause of diseases classified elsewhere; X58.XXXA Exposure to other specified factors, initial encounter; Y92.10 Unspecified residential institution as the place of occurrence of the external cause; S31.819A Unspecified open wound of right buttock, initial encounter; M62.40 Contracture of muscle, unspecified site; Z98.890 Other specified postprocedural states; T17.990A Other foreign object in respiratory tract, part unspecified in causing asphyxiation, initial encounter; R19.7 Diarrhea, unspecified; Z90.3 Acquired absence of stomach [part of]
CPT/HCPCS: 31720; 36415; 71045-TC; 80048-TC; 81000-TC; 82728-TC; 85025-TC; 87040-TC; 87086-TC; 87186-TC; 94003-TC; 94760-TC; 94762-TC; A4216; A4623; A6253; A7526; J0696; J2543; J7060; J8597; Q0162

== ENCOUNTER 2018-11-28 20:50 | Emergency (ER) | payer MEDICARE, OTHER ==
[~2018-11-28] VITALS: Ht 154.9 cm; Wt 54.0 kg
[2018-11-28 20:50] VITALS: BP 76/37
--- NOTE | 2018-11-28 20:55 | NUR ---
PT BB INPATIENT SUBACUTE STAFF FOR HYPOTENSION AND ALTERED MENTAL STATUS. PT ON MONITOR IN BED 9. AOX0. WILL CONTINUE TO MONITOR.
--- NOTE | 2018-11-28 21:00 | NUR ---
VERBAL ORDER FROM DR. KINNEY FOR TWO LARGE BORE IVS AND 2 L NS.
--- NOTE | 2018-11-28 21:25 | NUR ---
RT RECD PT TRACHED INTACT AND SECURED WITH SHILEY 6 FROM SUBACUTE FOR LOW BP WITH FOLLOWING ORDERS ON AC 450 14 40% 5 BAG AND MASK AT HOB VENT PLUGGED IN RED OUTLET NO RESP DISTRESS ATT WILL CONT TO MONITOR Addendum: 11/28/18 at 2128 by INDERJIT BRYAN RT Amended: Links added.
[2018-11-28 21:30] VITALS: BP 68/30
--- NOTE | 2018-11-28 21:30 | NUR ---
MULTIPLE IV ATTEMPTS BY SEVERAL STAFF MEMBERS; UNSUCCESSFUL. NURSING CLEANING PORTER CALLED FOR PICC LINE NURSE. AWARE.
--- NOTE | 2018-11-28 21:40 | NUR ---
PER NURSING SUP, PICC LINE NURSE ETA: 2200. STILL ATTEMPTING PERIPHERAL IV; UNSUCCESSFUL.
--- NOTE | 2018-11-28 21:50 | NUR ---
PT UNRESPONSIVE; PULSELESS. DR. KINNEY NOTIFIED STAT. RN REMAINS AT BEDSIDE WITH PT.
--- NOTE | 2018-11-28 21:52 | NUR ---
AT BEDSIDE WITH RT'S, RNS, AND SURGICAL FORCEPS FABRICATOR. PT REMAINS ON VENTILATOR. STILL UNRESPONSIVE, PULSELESS. PT DNR PER SIGNED DOCUMENT BY DAUGHTER RYLEE.
--- NOTE | 2018-11-28 21:57 | NUR ---
PT PRONOUNCED BY DR. KINNEY.
--- NOTE | 2018-11-28 21:57 | NUR ---
PT AT 2157. VENT TAKEN OFF AT THIS TIME.
--- NOTE | 2018-11-28 22:05 | NUR ---
PT CLEANED AND PREPARED FOR FAMILY VISIT.
--- NOTE | 2018-11-28 22:11 | NUR ---
THOMAS NUÑEZ DAUGHTER CALLED AT [phone]. "I WILL BE THERE".
--- NOTE | 2018-11-28 22:20 | NUR ---
CALLED [facility] AND SPOKE TO JOSLYN REFERENCE #[id number]
--- NOTE | 2018-11-28 22:39 | NUR ---
CALLED [facility] AND SPOKE TO [place]. STATES "NOT A SEO COORDINATOR CASE; RELEASE THE BODY TO THE MORTUARY"
--- NOTE | 2018-11-28 22:50 | NUR ---
DR. KINNEY TALKING TO FAMILY IN TRIAGE ROOM.
--- NOTE | 2018-11-28 23:00 | NUR ---
SHANKAR FROM [facility] CALLED STATING "I AM RELEASING THE BODY". REFERENCE # [id number]
--- NOTE | 2018-11-28 23:07 | NUR ---
FAMILY PHONE NUMBER DAUGHTER: [phone] [place] [phone]
--- NOTE | 2018-11-29 01:00 | NUR ---
PT TRANSP[place] [facility] [place]
== END 2018-11-28 23:59 ==
LOC: ER 20:52
DX: I46.9 Cardiac arrest, cause unspecified (principal); I49.8 Other specified cardiac arrhythmias; I10 Essential (primary) hypertension; E03.9 Hypothyroidism, unspecified; E78.5 Hyperlipidemia, unspecified; J96.91 Respiratory failure, unspecified with hypoxia; Z66 Do not resuscitate; Z93.0 Tracheostomy status; Z93.1 Gastrostomy status
CPT/HCPCS: 71045-TC